=== PATIENT | female | born 1955 | race Caucasian/White ===

== ENCOUNTER 2022-02-05 19:41 | Inpatient (IN) | payer MEDICARE, MEDICAID, OTHER, SELFPAY ==
--- NOTE | ~2022-02-05 | MR_ITS ---
EXAMINATION: BRAIN MRI WITHOUT CONTRAST CLINICAL INFORMATION: Change in mental status. COMPARISON: CT scan of the head 02/26/2022. TECHNIQUE: Multiplanar MR imaging of the brain was performed without contrast. 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 No evidence of acute territorial infarct. No pathological magnetic susceptibility artifact. Intracranial vascular flow voids are maintained. There is no intracranial mass effect or midline shift. No abnormal extra axial question. Lateral and third ventricles are normal. No hydrocephalus. Midline structures including the cervicomedullary junction are normal. No acute bone marrow signal changes. There is no mastoid or middle ear effusion. Partial opacification of the ethmoid air cells and left maxillary sinus. MR/MR brain wo con w neuroquant IMPRESSION: There is a small chronic infarct involving the cerebellar vermis and numerous chronic small vessel ischemic changes within the periventricular white matter. No evidence of acute territorial infarct. No intracranial mass effect or hydrocephalus.
--- NOTE | ~2022-02-05 | CT_ITS ---
EXAMINATION: CT HEAD WITHOUT CONTRAST CLINICAL INFORMATION: Mental status change. COMPARISON: Head CT dated 02/06/2022. TECHNIQUE: Contiguous axial imaging was performed from the skullbase to vertex without intravenous administration of contrast. This CT examination was performed using dose optimization techniques as appropriate, variously including the following: *Automated exposure control *Adjustment of mA and/or kV according to patient size (this includes techniques or standardized protocols for targeted exams where dose is matched to indication/reason for exam; i.e. extremities or head) *Use of iterative reconstruction technique DLP: 580 mGy-cm. FINDINGS: There is no evidence of acute intracranial hemorrhage or territorial infarction. No abnormal mass effect or midline shift is seen. Coko to white matter differentiation is well preserved. No extra-axial fluid collections are identified. Diffuse parenchymal volume loss is again evident with stable ex vacuo dilatation of the ventricles. Mild to moderate chronic white matter microangiopathy again evident as well. The osseous structures and soft tissues are normal. The mastoid air cells are well aerated. There is moderate mucosal disease partially visualized in the left maxillary antrum with chronic sclerotic wall thickening. Skik-qm-ytttxcet mucosal thickening also visible in the anterior ethmoid air cells bilaterally. There is a moderate rightward nasal septal deviation. CT/CT head/brain wo IV con IMPRESSION: No acute intracranial hemorrhage or territorial infarction. Stable diffuse parenchymal volume loss and hbuz-iw-sibjkmrg chronic white matter microangiopathy. Incompletely visualized moderate left maxillary sinus disease with chronic sclerotic wall thickening.
--- NOTE | ~2022-02-05 | CT_ITS ---
EXAMINATION: CT HEAD WITHOUT CONTRAST CLINICAL INFORMATION: Change in mental status. Dementia. COMPARISON: Head CT from 10/28/2018. TECHNIQUE: Contiguous axial imaging was performed from the skullbase to vertex without intravenous administration of contrast. This CT examination was performed using dose optimization techniques as appropriate, variously including the following: *Automated exposure control *Adjustment of mA and/or kV according to patient size (this includes techniques or standardized protocols for targeted exams where dose is matched to indication/reason for exam; i.e. extremities or head) *Use of iterative reconstruction technique DLP: 667 mGy-cm. FINDINGS: There is no evidence of acute intracranial hemorrhage or territorial infarction. No abnormal mass effect or midline shift is seen. Cook to white matter differentiation is well preserved. No extra-axial fluid collections are identified. Moderate generalized parenchymal volume loss noted with ex vacuo prominence of the ventricles, progressed since the prior study. Mild to moderate chronic white matter microangiopathic changes also noted. The osseous structures and soft tissues are normal. The mastoid air cells are well aerated. There is chronic sclerotic wall thickening of the left maxillary antrum with a retention cyst visible dependently. Mild ethmoid sinus mucosal thickening noted. CT/CT head/brain wo IV con IMPRESSION: No acute intracranial hemorrhage or territorial infarction. Progressed moderate generalized parenchymal volume loss and mild to moderate chronic white matter microangiopathy. 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
[2022-02-05 19:45] VITALS: BP 153/83; PULSE 65; RESP 18; TEMP 36.8; O2SAT 95
[2022-02-05] MEDS: Divalproex Sodium 500 MG TABLET.DR PO (22:27)
[2022-02-05] MEDS: traZODone HCL 50 MG TABLET PO (22:28)
[2022-02-05] MEDS: cephALEXin 500 MG CAPSULE PO (22:28)
[2022-02-05] MEDS: carvediloL 12.5 MG TABLET PO (22:28)
[2022-02-05] MEDS: Melatonin 3 MG TABLET 6 MG PO (22:28)
[2022-02-05] MEDS: hydrOXYzine HCL 25 MG TABLET PO (22:29)
[2022-02-05] MEDS: QUEtiapine Fumarate 50 MG TABLET PO (22:32)
--- NOTE | 2022-02-06 01:09 | PC.ADMIT ---
Addendum entered by Rena Fan RN 02/06/22 02:09: more info Addendum entered by Rena Fan RN 02/06/22 02:07: More info Original Note: Pt is a 66 yr old female admitted to S1 at 19:45 on 02/05/22 via stretcher by EMT staff, after referral from CARE team/BHN at [facility]. Legal Status: CV. Admitted for unspecified Depressive disorder and unspecified Anxiety disorder. Covid negative. On oral antibiotics for UTI. HX: Alzheimer's, HTN, hypothyroidism, hyperlipidemia, bipolar disorder. A&Ox2 person and place only. Is forgetful. Orientation varies. Is able to verbalize needs. Wears eye glasses at baseline. Pt presented calm and cooperative upon arrival. I cant wait to use the bathroom and sleep . Ambulatory however, some assistance provided as needed. Continent of B/B. Some black and purple bruising noted on left forearm. It's from the blood draws for the lab . Meds ordered, reviewed and verified with Gail Toure NP. Compliant with medications. Pt reports feeling safe on S1.
--- NOTE | 2022-02-06 02:09 | PC.ADMIT ---
Pt is a 66 yr old female admitted to S1 at 19:45 on 02/05/22 via stretcher by EMT staff, after referral from CARE team/BHN at ED [facility]. Legal Status: CV. Admitted for unspecified Depressive disorder and unspecified Anxiety disorder. Covid negative. On oral antibiotics for UTI. HX: DM, Alzheimer's, HTN, hypothyroidism, hyperlipidemia, bipolar disorder. A&Ox2 person and place only. Is forgetful. Orientation varies. Is able to verbalize needs. Wears eye glasses at baseline. Pt presented calm and cooperative upon arrival. I cant wait to use the bathroom and sleep . Ambulatory however, some assistance provided as needed. Continent of B/B. Some black and purple bruising noted on left forearm. It's from the blood draws for the lab . Meds ordered, reviewed and verified with Gail Toure PATIENT SERVICE REPRESENTATIVE. Compliant with medications. Pt reports feeling safe on S1.
[2022-02-06 06:00] VITALS: BP 154/71; PULSE 56; RESP 14; TEMP 36.3; O2SAT 95
[2022-02-06] MEDS: Levothyroxine Sodium 50 MCG TABLET PO (06:13)
[2022-02-06 08:11] LABS: Glucose, Whole Blood 86 mg/dL (60-115)
[2022-02-06 09:16] LABS: Cholesterol 159 mg/dL; HDL Cholesterol 37 mg/dL; LDL Cholesterol Calculated 95 mg/dl; Magnesium 1.9 mg/dL (1.6-2.6); Triglycerides 139 mg/dL
[2022-02-06 09:35] LABS: Estimated Average Glucose 114 mg/dL; Hemoglobin A1c % 5.6 %
[2022-02-06 09:39] LABS: Free T4 (Free Thyroxine) 1.28 ng/dL (0.71-1.85); Thyroid Stimulating Hormone 3.24 uIU/mL (0.32-4.0)
[2022-02-06 09:50] LABS: Folate 9.8 ng/mL (> or = 4.0); Vitamin B12 1130 pg/mL (200-900)
[2022-02-06] MEDS: carvediloL 12.5 MG TABLET PO ×2 (09:57→20:48)
[2022-02-06] MEDS: Atorvastatin Calcium 80 MG TABLET PO (09:57)
[2022-02-06] MEDS: Divalproex Sodium 250 MG TABLET.DR PO (09:57)
[2022-02-06] MEDS: amLODIPine Besylate 5 MG TABLET PO (09:57)
[2022-02-06] MEDS: cephALEXin 500 MG CAPSULE PO (11:02)
[2022-02-06] MEDS: Sertraline HCL 50 MG TABLET PO (11:02)
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
--- NOTE | 2022-02-06 15:41 | HO.PM.IMCN ---
History of Present Illness Data of Consult Service Date: 02/06/22 Requesting physician: Gail Toure Primary Care Provider: Unknown Physician HPI Reason for consult: hospital H&P 66-year-old female with history of insulin-dependent type 2 diabetes last A1c 5.6%, hypertension, MATTIE on CPAP, CKD stage 3, hypothyroidism, Alzheimer's, and bipolar disorder with psychosis admitted to Geriatric Psychiatry with consult placed for medical H&P. There is transferred here from [facility]. In the ED, she was noted to have 3+ leukocytes and slight bacteria in her urine. Nitrates were negative. Urine culture is not available. She has been on Keflex since 02/02 and denies any urinary symptoms including dysuria, hematuria, increased urinary frequency, urgency, fevers, chills, or abdominal pain. She has no complaints at this time. Review of Systems Review of Systems: General: No fevers, malaise, unintentional weight loss HEENT: No blurred vision or diplopia Cardiovascular: No chest pain, palpitations, or leg edema Respiratory: No shortness of breath, wheezing, cough GI: No abdominal pain, nausea, vomiting, diarrhea, constipation, melena, hematochezia : No dysuria, hematuria, increased urinary frequency, urgency MSK: No myalgia Neuro: No headaches, weakness, paresthesias Skin: No rashes or lesions [facility] Medical History (Updated 02/06/22 @ 15:48 by KHOA Hui) Bipolar disorder CKD stage 3 due to type 2 diabetes mellitus Dementia HLD (hyperlipidemia) Hypothyroidism MATTIE (obstructive sleep apnea) Type 2 diabetes Family History Father Alcohol dependence Mother Smoker Daughter No problems noted. Son No problems noted. Social History Household Members: Family Housing: House Do you presently have visiting nurse or other home services: No Unable to assess alcohol history related to: Unknown Patient Tobacco Use Status: Former Tobacco user Quit Date: Years ago Tobacco use type: Cigarette Smoked in Last 30 Days: No e-Cigarette/Vaping Use: Never Used Patient Interested in Nicotine Replacement: No Use of substances other than those prescribed or required for medical reasons: Unknown Currently Displaying Signs/Symptoms of Drug Intoxication Withdrawal: No Advance Directives: No Advance Directives Information Provided: No Do you have thoughts of harming others: None Do you have a plan to hurt others: No Plan Recently lost weight without trying: Unsure Patient : No service: No Sexual orientation: Straight/Heterosexual Meds Allergies Allergy/AdvReac Type Severity Reaction Status Date / Time No Known Allergies Allergy Verified 02/05/22 21:09 Active Medications: Current Medications Acetaminophen (Acetaminophen 325 Mg Tablet) 650 mg PO Q6H PRN PRN Reason: Headache/Pain Mild Scale (1-3) Al Hydroxide/Mg Hydroxide (Magnesium Hydrox/Alum Hydrox 30 Ml Oral.Susp) 30 ml PO Q6H PRN PRN Reason: Heartburn/Nausea Amlodipine Besylate (Amlodipine Besylate 5 Mg Tablet) 5 mg PO DAILY [facility]; Protocol Last Admin: 02/06/22 09:57 Dose: 5 mg Artificial Tears (Artificial Tears 15 Ml Drops) 1 drop EYE-BOTH Q4H PRN PRN Reason: dry eyes Atorvastatin Calcium (Atorvastatin Calcium 80 Mg Tablet) 80 mg PO DAILY [facility] Last Admin: 02/06/22 09:57 Dose: 80 mg Carvedilol (Carvedilol 12.5 Mg Tablet) 12.5 mg PO BID [facility]; Protocol Last Admin: 02/06/22 09:57 Dose: 12.5 mg Cephalexin HCl (Cephalexin 500 Mg Capsule) 500 mg PO Q12H KELY Stop: 02/10/22 22:59 Last Admin: 02/06/22 11:02 Dose: 500 mg Divalproex Sodium (Divalproex Sodium 250 Mg Tablet.) 250 mg PO DAILY [facility] Last Admin: 02/06/22 09:57 Dose: 250 mg Divalproex Sodium (Divalproex Sodium 500 Mg Tablet.) 500 mg PO BEDTIME KELY Last Admin: 02/05/22 22:27 Dose: 500 mg Guaifenesin/Dextromethorphan (Guaifenesin Dm 100/10/5 Ml 5 Ml Syrup) 10 ml PO Q4H PRN PRN Reason: cough Hydroxyzine HCl (Hydroxyzine Hcl 25 Mg Tablet) 25 mg PO Q6H PRN PRN Reason: Anxiety Last Admin: 02/05/22 22:29 Dose: 25 mg Insulin Human Lispro (Insulin Lispro 100 Unit/Ml 3 Ml Vial) 0 unit SUBCUT QIDACHS KELY; Protocol Last Admin: 02/06/22 13:54 Dose: Not Given Levothyroxine Sodium (Levothyroxine Sodium 50 Mcg Tablet) 50 mcg PO DAILY@0600 [facility] Last Admin: 02/06/22 06:13 Dose: 50 mcg Magnesium Hydroxide (Milk Of Magnesia 30 Ml Oral.Susp) 30 ml PO DAILY PRN PRN Reason: Constipation Melatonin (Melatonin 3 Mg Tablet) 6 mg PO BEDTIME [facility] Last Admin: 02/05/22 22:28 Dose: 6 mg Melatonin (Melatonin 3 Mg Tablet) 3 mg PO BEDTIME PRN PRN Reason: insomnia Polyethylene Glycol (Polyethylene Glycol 3350 17 Gm Powd.Pack) 17 gm PO DAILY PRN PRN Reason: constipation Quetiapine Fumarate (Quetiapine Fumarate 50 Mg Tablet) 50 mg PO BEDTIME [facility] Last Admin: 02/05/22 22:32 Dose: 50 mg Senna/Docusate Sodium (Sennosides/Docusate Sodium Tablet) 1 tab PO DAILY PRN PRN Reason: constipation Sertraline HCl (Sertraline Hcl 50 Mg Tablet) 50 mg PO DAILY [facility] Last Admin: 02/06/22 11:02 Dose: 50 mg Trazodone HCl (Trazodone Hcl 50 Mg Tablet) 50 mg PO BEDTIME PRN PRN Reason: Insomnia Last Admin: 02/05/22 22:28 Dose: 50 mg Physical Exam Vital Signs and Narrative: Vital Signs: Last Vital Signs Temp 97.4 F 02/06/22 06:00 Pulse 56 02/06/22 06:00 Resp 14 02/06/22 06:00 BP 154/71 H 02/06/22 06:00 Pulse Ox 95 02/06/22 06:00 O2 Del Method 02/06/22 06:00 Constitutional - Awake and Alert, No apparent distress Eyes - PERRLA, EOMI Cardiovascular - S1S2, RRR, No edema Respiratory - Normal lung expansion, Normal respiratory effort, No respiratory distress, CTA bilaterally Gastrointestinal - NT / ND; +BS; No rebound or guarding Extremities - no calf tenderness bilaterally, no swelling Musculoskeletal - Normal inspection, normal ROM Skin - Warm/Dry Neurological - Alert & oriented x3, CN II-XII in tact, 5/5 strength BUE and BLE Psychological - Appropriate affect Results Labs Labs: Laboratory Results - last 24 hr 02/06/22 02/06/22 02/06/22 08:02 08:33 08:33 POC Glucose 86 Estimat Average Glucose 114 Hemoglobin A1c % 5.6 Magnesium 1.9 Triglycerides 139 Cholesterol 159 LDL Cholesterol, Calc 95 HDL Cholesterol 37 Vitamin B12 Folate TSH 3.24 Free T4 1.28 02/06/22 08:33 POC Glucose Estimat Average Glucose Hemoglobin A1c % Magnesium Triglycerides Cholesterol LDL Cholesterol, Calc HDL Cholesterol Vitamin B12 1130 H Folate 9.8 TSH Free T4 Assessment and Plan (1) Dementia: Status: Acute (2) Bipolar disorder: Status: Acute (3) Delirium: Status: Acute Plan 66-year-old female with history of insulin-dependent type 2 diabetes last A1c 5.6%, hypertension, MATTIE on CPAP, CKD stage 3, hypothyroidism, Alzheimer's, and bipolar disorder with psychosis admitted to geriatric psychiatry with consult placed for medical H&P. #Bipolar disorder -Plan per psychiatry #Dementia/delerium -Plan per psychiatry #UTI -No urine culture available. UA at [facility] with 3+ leuks, slight bacteria, neg nitrites. -Complete 7 day total course keflex. # insulin-dependent type 2 diabetes -controlled with most recent A1c of 5.6% -point of care glucose -diabetic diet -Humalog on sliding scale # hypothyroidism-stable -TSH 3.24, free T4 1.28 -continue levothyroxine # hypertension-controlled -continue carvedilol # hyperlipidemia -total cholesterol 159, LDL 95, HDL 37 triglycerides 139 -continue statin #MATTIE on cpap -Would recommend CPAP use if possible on unit. Pt unsure of settings. RT can assist with settings -Will defer to psychiatry Thank you for allowing me to participate in this consult. Signing off at this time. Please do not hesitate to call for further questions.
[2022-02-06 16:40] LABS: Glucose, Whole Blood 97 mg/dL (60-115)
[2022-02-06 20:00] VITALS: BP 141/83; PULSE 62; RESP 16; TEMP 36.5; O2SAT 95
[2022-02-06 20:30] LABS: Glucose, Whole Blood 133 mg/dL (60-115)
[2022-02-06] MEDS: QUEtiapine Fumarate 50 MG TABLET PO (20:48)
[2022-02-06] MEDS: Divalproex Sodium 500 MG TABLET.DR PO (20:48)
[2022-02-06] MEDS: Melatonin 3 MG TABLET 6 MG PO (20:48)
[2022-02-07] MEDS: cephALEXin 500 MG CAPSULE PO ×2 (03:17→11:30)
[2022-02-07] MEDS: Levothyroxine Sodium 50 MCG TABLET PO (05:51)
[2022-02-07 06:00] VITALS: BP 138/65; PULSE 56; RESP 16; TEMP 36.4; O2SAT 97
[2022-02-07 08:18] LABS: Glucose, Whole Blood 85 mg/dL (60-115)
[2022-02-07] MEDS: amLODIPine Besylate 5 MG TABLET PO (11:03)
[2022-02-07] MEDS: Divalproex Sodium 250 MG TABLET.DR PO (11:03)
[2022-02-07] MEDS: carvediloL 12.5 MG TABLET PO ×2 (11:03→20:23)
[2022-02-07] MEDS: Atorvastatin Calcium 80 MG TABLET PO (11:03)
[2022-02-07] MEDS: Sertraline HCL 50 MG TABLET PO (11:03)
[2022-02-07 11:41] LABS: Glucose, Whole Blood 93 mg/dL (60-115)
--- NOTE | 2022-02-07 14:33 | HO.PSYCHPN ---
Subjective Subjective Date of Service: 02/07/22 Reason For Visit: depression, anxiety, alzheimers Subjective Notes: Conditional Voluntary Interim History: the nursing staff reported the patient has been compliant with treatment, she slept well, his fasting blood sugars were 82 today. She is treated for UTI with antibiotics. So far no side effects. Apparently the patient lived in a crowded apartment with several family members and she had been paranoid and psychotic again stem. On interview the patient is pleasantly confused easily redirectable, no new side effects no new complaints. Visible in the common areas. We will try to gather collateral information sings the adoption social worker was unable to contact the family yesterday. Mental Status Exam Mental Status Exam Patient Appearance: Well Grooomed Patient Orientation: Person and Situation Level of Consciousness: Awake Patient Behavior: Cooperative Mood Description: Constricted Affect Description: Labile Patient Cognition Impaired: Yes Ability to Follow Directions: Good Speech Pattern: Clear Hallucinations: None Delusions: Paranoid Ideation Thought Process: Distracted Thought Content: positive for Rousseau Judgement: Poor Diagnostics Vital Signs (24Hr): Vital Signs - 24 hr 02/06/22 20:00 02/07/22 06:00 Temperature 97.7 F 97.6 F Pulse Rate 62 56 Respiratory Rate 16 16 Blood Pressure 141/83 H 138/65 Pulse Oximetry 95 97 Oxygen Delivery Method Room Air Room Air Labs Labs: Laboratory Results - last 48 hr 02/06/22 02/06/22 02/06/22 08:02 08:33 08:33 POC Glucose 86 Estimat Average Glucose 114 Hemoglobin A1c % 5.6 Magnesium 1.9 Triglycerides 139 Cholesterol 159 LDL Cholesterol, Calc 95 HDL Cholesterol 37 Vitamin B12 Folate TSH 3.24 Free T4 1.28 02/06/22 02/06/22 02/06/22 08:33 16:35 20:25 POC Glucose 97 133 H Estimat Average Glucose Hemoglobin A1c % Magnesium Triglycerides Cholesterol LDL Cholesterol, Calc HDL Cholesterol Vitamin B12 1130 H Folate 9.8 TSH Free T4 02/07/22 02/07/22 08:15 11:37 POC Glucose 85 93 Estimat Average Glucose Hemoglobin A1c % Magnesium Triglycerides Cholesterol LDL Cholesterol, Calc HDL Cholesterol Vitamin B12 Folate TSH Free T4 Imaging Radiology Impressions: ITS Impressions Head CT 02/06/22 15:04 IMPRESSION: No acute intracranial hemorrhage or territorial infarction. Progressed moderate generalized parenchymal volume loss and mild to moderate chronic white matter microangiopathy. 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 Medications Medications Current Medications Acetaminophen (Acetaminophen 325 Mg Tablet) 650 mg PO Q6H PRN PRN Reason: Headache/Pain Mild Scale (1-3) Al Hydroxide/Mg Hydroxide (Magnesium Hydrox/Alum Hydrox 30 Ml Oral.Susp) 30 ml PO Q6H PRN PRN Reason: Heartburn/Nausea Amlodipine Besylate (Amlodipine Besylate 5 Mg Tablet) 5 mg PO DAILY [facility]; Protocol Last Admin: 02/07/22 11:03 Dose: 5 mg Artificial Tears (Artificial Tears 15 Ml Drops) 1 drop EYE-BOTH Q4H PRN PRN Reason: dry eyes Atorvastatin Calcium (Atorvastatin Calcium 80 Mg Tablet) 80 mg PO DAILY [facility] Last Admin: 02/07/22 11:03 Dose: 80 mg Carvedilol (Carvedilol 12.5 Mg Tablet) 12.5 mg PO BID [facility]; Protocol Last Admin: 02/07/22 11:03 Dose: 12.5 mg Cephalexin HCl (Cephalexin 500 Mg Capsule) 500 mg PO Q12H [facility] Stop: 02/10/22 22:59 Last Admin: 02/07/22 11:30 Dose: 500 mg Divalproex Sodium (Divalproex Sodium 250 Mg Tablet.) 250 mg PO DAILY [facility] Last Admin: 02/07/22 11:03 Dose: 250 mg Divalproex Sodium (Divalproex Sodium 500 Mg Tablet.) 500 mg PO BEDTIME [facility] Last Admin: 02/06/22 20:48 Dose: 500 mg Guaifenesin/Dextromethorphan (Guaifenesin Dm 100/10/5 Ml 5 Ml Syrup) 10 ml PO Q4H PRN PRN Reason: cough Hydroxyzine HCl (Hydroxyzine Hcl 25 Mg Tablet) 25 mg PO Q6H PRN PRN Reason: Anxiety Last Admin: 02/05/22 22:29 Dose: 25 mg Insulin Human Lispro (Insulin Lispro 100 Unit/Ml 3 Ml Vial) 0 unit SUBCUT QIDACHS [facility]; Protocol Last Admin: 02/07/22 11:39 Dose: Not Given Levothyroxine Sodium (Levothyroxine Sodium 50 Mcg Tablet) 50 mcg PO DAILY@0600 [facility] Last Admin: 02/07/22 05:51 Dose: 50 mcg Magnesium Hydroxide (Milk Of Magnesia 30 Ml Oral.Susp) 30 ml PO DAILY PRN PRN Reason: Constipation Melatonin (Melatonin 3 Mg Tablet) 6 mg PO BEDTIME [facility] Last Admin: 02/06/22 20:48 Dose: 6 mg Melatonin (Melatonin 3 Mg Tablet) 3 mg PO BEDTIME PRN PRN Reason: insomnia Polyethylene Glycol (Polyethylene Glycol 3350 17 Gm Powd.Pack) 17 gm PO DAILY PRN PRN Reason: constipation Quetiapine Fumarate (Quetiapine Fumarate 50 Mg Tablet) 50 mg PO BEDTIME [facility] Last Admin: 02/06/22 20:48 Dose: 50 mg Senna/Docusate Sodium (Sennosides/Docusate Sodium Tablet) 1 tab PO DAILY PRN PRN Reason: constipation Sertraline HCl (Sertraline Hcl 50 Mg Tablet) 50 mg PO DAILY [facility] Last Admin: 02/07/22 11:03 Dose: 50 mg Trazodone HCl (Trazodone Hcl 50 Mg Tablet) 50 mg PO BEDTIME PRN PRN Reason: Insomnia Last Admin: 02/05/22 22:28 Dose: 50 mg Allergies Allergies Allergy/AdvReac Type Severity Reaction Status Date / Time No Known Allergies Allergy Verified 02/05/22 21:09 Assessment & Plan Assessment & Plan (1) Dementia: Status: Acute Code(s): F03.90 - Unspecified dementia, unspecified severity, without behavioral disturbance, psychotic disturbance, mood disturbance, and anxiety (2) Bipolar disorder: Status: Acute Code(s): F31.9 - Bipolar disorder, unspecified (3) Delirium: Status: Acute Code(s): R41.0 - Disorientation, unspecified Plan 66-year-old female with history of insulin-dependent type 2 diabetes last A1c 5.6%, hypertension, MATTIE on CPAP, CKD stage 3, hypothyroidism, Alzheimer's, and bipolar disorder with psychosis admitted to geriatric psychiatry with consult placed for medical H&P. #Bipolar disorder -Plan per psychiatry #Dementia/delerium -Plan per psychiatry #UTI -No urine culture available. UA at [facility] with 3+ leuks, slight bacteria, neg nitrites. -Complete 7 day total course keflex. # insulin-dependent type 2 diabetes -controlled with most recent A1c of 5.6% -point of care glucose -diabetic diet -Humalog on sliding scale # hypothyroidism-stable -TSH 3.24, free T4 1.28 -continue levothyroxine # hypertension-controlled -continue carvedilol # hyperlipidemia -total cholesterol 159, LDL 95, HDL 37 triglycerides 139 -continue statin #MATTIE on cpap -Would recommend CPAP use if possible on unit. Pt unsure of settings. RT can assist with settings -Will defer to psychiatry Thank you for allowing me to participate in this consult. Signing off at this time. Please do not hesitate to call for further questions. I spent __20____ minutes with the patient and/or on the patient floor today, greater than?50% of which was spent counseling/coordinating care. Reason for contiued inpatient stay Substantial Risk for: inability to function, rapid decompensation and med/psych decompensation
[2022-02-07 16:23] LABS: Appearance Urine Clear; Color Urine Yellow; Glucose Urine UA Negative (Negative); Leukocyte Esterase Urine Negative (Negative); Nitrite Urine Negative (Negative); Specific Gravity - Urine 1.025 (1.005-1.025); Urine Blood Negative (Negative); Urine Ketones Trace mg/dL (Negative); Urine Protein Negative (Neg-Trace)
[2022-02-07 16:36] LABS: Glucose, Whole Blood 110 mg/dL (60-115)
[2022-02-07 18:00] VITALS: BP 135/62; PULSE 62; RESP 16; TEMP 36.5; O2SAT 93
[2022-02-07 20:20] LABS: Glucose, Whole Blood 198 mg/dL (60-115)
[2022-02-07] MEDS: Insulin Lispro 100 UNIT/ML 3 ML VIAL SUBCUT (20:21)
[2022-02-07] MEDS: QUEtiapine Fumarate 50 MG TABLET PO (20:22)
[2022-02-07] MEDS: Divalproex Sodium 500 MG TABLET.DR PO (20:23)
[2022-02-07] MEDS: Melatonin 3 MG TABLET 6 MG PO (20:23)
[2022-02-08] MEDS: cephALEXin 500 MG CAPSULE PO ×2 (00:12→11:29)
[2022-02-08 06:00] VITALS: BP 142/70; PULSE 60; RESP 17; TEMP 35.8; O2SAT 95
[2022-02-08] MEDS: Levothyroxine Sodium 50 MCG TABLET PO (06:07)
[2022-02-08 07:00] VITALS: BMI 28.4
[2022-02-08 07:58] LABS: Glucose, Whole Blood 79 mg/dL (60-115)
[2022-02-08 08:14] LABS: MANUAL DIFF FLAG NO
[2022-02-08] MEDS: amLODIPine Besylate 5 MG TABLET PO (08:44)
[2022-02-08] MEDS: carvediloL 12.5 MG TABLET PO ×2 (08:45→20:29)
[2022-02-08] MEDS: Atorvastatin Calcium 80 MG TABLET PO (08:45)
[2022-02-08] MEDS: Divalproex Sodium 250 MG TABLET.DR PO (08:45)
[2022-02-08] MEDS: Sertraline HCL 50 MG TABLET PO (08:45)
[2022-02-08 09:00] LABS: Basophils Percent Auto 0.8 % (0-2); Eosinophils Absolute Auto 0.3 X10*3/uL (0.0-0.4); Eosinophils Percent Auto 5.2 % (0-4); Hematocrit 35.5 % (37.0-47.0); Hemoglobin 11.7 g/dl (12.0-16.0); Imm Gran Abs Auto 0.12 X10*3/uL (0.00-0.03); Imm Gran Pct Auto 2.5 % (0.0-0.4); Lymphocytes Absolute Auto 1.7 X10*3/uL (1.2-4.9); Lymphocytes Percent Auto 34.8 % (20-40); Mean Corpuscular Hemoglobin 31.3 pg (27.0-33.0); Mean Corpuscular Volume 94.9 fL (80.0-98.0); Mean Platelet Volume 9.7 fL (9.4-12.3); Monocytes Absolute Auto 0.7 X10*3/uL (0.1-1.2); Monocytes Percent Auto 13.5 % (2-11); Neutrophils Absolute Auto 2.1 x10*3/uL (2.0-8.3); Neutrophils Percent Auto 43.2 % (45-73); Platelet Count 133 X10*3/uL (160-400); Red Blood Count 3.74 X10*6/uL (4.20-5.50); Red Cell Distribution Width 13.7 % (11.0-16.0); White Blood Count 4.8 X10*3/uL (4.8-10.8)
[2022-02-08 09:14] LABS: Anion Gap 13 (12-20); Blood Urea Nitrogen 24 mg/dL (9-16); Calcium 8.7 mg/dL (8.4-10.2); Carbon Dioxide 30 mmol/L (22-29); Chloride 104 mmol/L (96-108); Estimated Glomerular Filt Rate 46; Glucose Random 88 mg/dL (60-115); Potassium 4.1 mmol/L (3.3-5.1); Sodium 143 mmol/L (135-145)
--- NOTE | 2022-02-08 11:28 | P.PNPSI_ITS ---
Subjective Subjective Date of Service: 02/08/22 Reason For Visit: depression, anxiety, alzheimers Subjective Notes: Conditional Voluntary Interim History: The nursing staff reported the patient slept all night long. Her UA came back clear and we will continue with her and Keflex and she finish on February 10. The social media sr strategy manager spoke with her daughter and they want placement for her since 13 people living in that apartment and there is over the stimulation. Apparently she has more than 3 admissions in the last year due to Alzheimer's dementia. The occupational therapist reported that she scored 3.4 on the Dong test at her [employer] is 9/30. We will try to talk with the [id number] tomorrow at 11:30. On interview the patient denies new symptoms she is pleasantly confused but easily redirectable. Mental Status Exam Mental Status Exam Patient Appearance: Well Grooomed Patient Orientation: Person Level of Consciousness: Awake Patient Behavior: Guarded and Passive Mood Description: Calm Affect Description: Labile Patient Cognition Impaired: Yes Ability to Follow Directions: Fair Speech Pattern: Clear Memory Description: Intact Hallucinations: None Delusions: Paranoid Ideation Thought Process: Illogical Judgement: Fair Diagnostics Vital Signs (24Hr): Vital Signs - 24 hr 02/07/22 18:00 02/08/22 06:00 Temperature 97.7 F 96.5 F L Pulse Rate 62 60 Respiratory Rate 16 17 Blood Pressure 135/62 142/70 H Pulse Oximetry 93 95 Oxygen Delivery Method Room Air Room Air Labs Results: 02/08/22 08:02 02/08/22 08:02 Labs: Laboratory Results - last 48 hr 02/06/22 02/06/22 02/07/22 16:35 20:25 08:15 WBC RBC Hgb Hct MCV MCH MCHC RDW Plt Count MPV Immature Gran % (Auto) Neut % (Auto) Lymph % (Auto) [place] % (Auto) Eos % (Auto) Baso % (Auto) Lymph # (Auto) [place] # (Auto) Eos # (Auto) Baso # (Auto) Abs Immat Gran (auto) Absolute Neuts (auto) Absolute Nucleated RBC Nucleated RBC % (auto) Sodium Potassium Chloride Carbon Dioxide Anion Gap BUN Creatinine Estim Creat Clear Calc Estimated GFR POC Glucose 97 133 H 85 Random Glucose Calcium Urine Color Urine Appearance Urine pH Ur Specific [place] Urine Protein Urine Glucose (UA) Urine Ketones Urine Blood Urine Nitrite Ur Leukocyte Esterase 02/07/22 02/07/22 02/07/22 11:37 16:10 16:31 WBC RBC Hgb Hct MCV MCH MCHC RDW Plt Count MPV Immature Gran % (Auto) Neut % (Auto) Lymph % (Auto) [place] % (Auto) Eos % (Auto) Baso % (Auto) Lymph # (Auto) [place] # (Auto) Eos # (Auto) Baso # (Auto) Abs Immat Gran (auto) Absolute Neuts (auto) Absolute Nucleated RBC Nucleated RBC % (auto) Sodium Potassium Chloride Carbon Dioxide Anion Gap BUN Creatinine Estim Creat Clear Calc Estimated GFR POC Glucose 93 110 Random Glucose Calcium Urine Color Yellow Urine Appearance Clear Urine pH 6.0 Ur Specific [place] 1.025 Urine Protein Negative Urine Glucose (UA) Negative Urine Ketones Trace Urine Blood Negative Urine Nitrite Negative Ur Leukocyte Esterase Negative 02/07/22 02/08/22 02/08/22 19:59 07:53 08:02 WBC 4.8 RBC 3.74 L Hgb 11.7 L Hct 35.5 L MCV 94.9 MCH 31.3 MCHC 33.0 RDW 13.7 Plt Count 133 L MPV 9.7 Immature Gran % (Auto) 2.5 H Neut % (Auto) 43.2 L Lymph % (Auto) 34.8 [place] % (Auto) 13.5 H Eos % (Auto) 5.2 H Baso % (Auto) 0.8 Lymph # (Auto) 1.7 [place] # (Auto) 0.7 Eos # (Auto) 0.3 Baso # (Auto) 0.0 Abs Immat Gran (auto) 0.12 H Absolute Neuts (auto) 2.1 Absolute Nucleated RBC 0.000 Nucleated RBC % (auto) 0.0 Sodium Potassium Chloride Carbon Dioxide Anion Gap BUN Creatinine Estim Creat Clear Calc Estimated GFR POC Glucose 198 H 79 Random Glucose Calcium Urine Color Urine Appearance Urine pH Ur Specific [place] Urine Protein Urine Glucose (UA) Urine Ketones Urine Blood Urine Nitrite Ur Leukocyte Esterase 02/08/22 08:02 WBC RBC Hgb Hct MCV MCH MCHC RDW Plt Count MPV Immature Gran % (Auto) Neut % (Auto) Lymph % (Auto) [place] % (Auto) Eos % (Auto) Baso % (Auto) Lymph # (Auto) [place] # (Auto) Eos # (Auto) Baso # (Auto) Abs Immat Gran (auto) Absolute Neuts (auto) Absolute Nucleated RBC Nucleated RBC % (auto) Sodium 143 Potassium 4.1 Chloride 104 Carbon Dioxide 30 H Anion Gap 13 BUN 24 H Creatinine 1.18 Estim Creat Clear Calc TNP Estimated GFR 46 POC Glucose Random Glucose 88 Calcium 8.7 Urine Color Urine Appearance Urine pH Ur Specific [place] Urine Protein Urine Glucose (UA) Urine Ketones Urine Blood Urine Nitrite Ur Leukocyte Esterase Imaging Radiology Impressions: ITS Impressions Head CT 02/06/22 15:04 IMPRESSION: No acute intracranial hemorrhage or territorial infarction. Progressed moderate generalized parenchymal volume loss and mild to moderate chronic white matter microangiopathy. 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 Medications Medications Current Medications Acetaminophen (Acetaminophen 325 Mg Tablet) 650 mg PO Q6H PRN PRN Reason: Headache/Pain Mild Scale (1-3) Al Hydroxide/Mg Hydroxide (Magnesium Hydrox/Alum Hydrox 30 Ml Oral.Susp) 30 ml PO Q6H PRN PRN Reason: Heartburn/Nausea Amlodipine Besylate (Amlodipine Besylate 5 Mg Tablet) 5 mg PO DAILY [facility]; Protocol Last Admin: 02/08/22 08:44 Dose: 5 mg Artificial Tears (Artificial Tears 15 Ml Drops) 1 drop EYE-BOTH Q4H PRN PRN Reason: dry eyes Atorvastatin Calcium (Atorvastatin Calcium 80 Mg Tablet) 80 mg PO DAILY [facility] Last Admin: 02/08/22 08:45 Dose: 80 mg Carvedilol (Carvedilol 12.5 Mg Tablet) 12.5 mg PO BID [facility]; Protocol Last Admin: 02/08/22 08:45 Dose: 12.5 mg Cephalexin HCl (Cephalexin 500 Mg Capsule) 500 mg PO Q12H [facility] Stop: 02/10/22 22:59 Last Admin: 02/08/22 00:12 Dose: 500 mg Divalproex Sodium (Divalproex Sodium 250 Mg Tablet.) 250 mg PO DAILY [facility] Last Admin: 02/08/22 08:45 Dose: 250 mg Divalproex Sodium (Divalproex Sodium 500 Mg Tablet.) 500 mg PO BEDTIME [facility] Last Admin: 02/07/22 20:23 Dose: 500 mg Donepezil HCl (Donepezil Hcl 5 Mg Tablet) 5 mg PO BEDTIME [facility] Guaifenesin/Dextromethorphan (Guaifenesin Dm 100/10/5 Ml 5 Ml Syrup) 10 ml PO Q4H PRN PRN Reason: cough Hydroxyzine HCl (Hydroxyzine Hcl 25 Mg Tablet) 25 mg PO Q6H PRN PRN Reason: Anxiety Last Admin: 02/05/22 22:29 Dose: 25 mg Insulin Human Lispro (Insulin Lispro 100 Unit/Ml 3 Ml Vial) 0 unit SUBCUT QIDACHS [facility]; Protocol Last Admin: 02/08/22 11:21 Dose: Not Given Levothyroxine Sodium (Levothyroxine Sodium 50 Mcg Tablet) 50 mcg PO DAILY@0600 [facility] Last Admin: 02/08/22 06:07 Dose: 50 mcg Magnesium Hydroxide (Milk Of Magnesia 30 Ml Oral.Susp) 30 ml PO DAILY PRN PRN Reason: Constipation Melatonin (Melatonin 3 Mg Tablet) 6 mg PO BEDTIME [facility] Last Admin: 02/07/22 20:23 Dose: 6 mg Melatonin (Melatonin 3 Mg Tablet) 3 mg PO BEDTIME PRN PRN Reason: insomnia Polyethylene Glycol (Polyethylene Glycol 3350 17 Gm Powd.Pack) 17 gm PO DAILY PRN PRN Reason: constipation Quetiapine Fumarate (Quetiapine Fumarate 50 Mg Tablet) 50 mg PO BEDTIME [facility] Last Admin: 02/07/22 20:22 Dose: 50 mg Senna/Docusate Sodium (Sennosides/Docusate Sodium Tablet) 1 tab PO DAILY PRN PRN Reason: constipation Sertraline HCl (Sertraline Hcl 50 Mg Tablet) 50 mg PO DAILY [facility] Last Admin: 02/08/22 08:45 Dose: 50 mg Trazodone HCl (Trazodone Hcl 50 Mg Tablet) 50 mg PO BEDTIME PRN PRN Reason: Insomnia Last Admin: 02/05/22 22:28 Dose: 50 mg Allergies Allergies Allergy/AdvReac Type Severity Reaction Status Date / Time No Known Allergies Allergy Verified 02/05/22 21:09 Assessment & Plan Assessment & Plan (1) Dementia: Status: Acute Code(s): F03.90 - Unspecified dementia, unspecified severity, without behavioral distu rbance, psychotic disturbance, mood disturbance, and anxiety (2) Bipolar disorder: Status: Acute Code(s): F31.9 - Bipolar disorder, unspecified (3) Delirium: Status: Acute Code(s): R41.0 - Disorientation, unspecified Plan 66-year-old female with history of insulin-dependent type 2 diabetes last A1c 5.6%, hypertension, MATTIE on CPAP, CKD stage 3, hypothyroidism, Alzheimer's, and bipolar disorder with psychosis admitted to geriatric psychiatry with consult placed for medical H&P. #Bipolar disorder -Plan per psychiatry #Dementia/delerium -Plan per psychiatry #UTI -No urine culture available. UA at [facility] with 3+ leuks, slight bacteria, neg nitrites. -Complete 7 day total course keflex. # insulin-dependent type 2 diabetes -controlled with most recent A1c of 5.6% -point of care glucose -diabetic diet -Humalog on sliding scale # hypothyroidism-stable -TSH 3.24, free T4 1.28 -continue levothyroxine # hypertension-controlled -continue carvedilol # hyperlipidemia -total cholesterol 159, LDL 95, HDL 37 triglycerides 139 -continue statin #MATTIE on cpap -Would recommend CPAP use if possible on unit. Pt unsure of settings. RT can assist with settings -Will defer to psychiatry Thank you for allowing me to participate in this consult. Signing off at this time. Please do not hesitate to call for further questions. I spent __20____ minutes with the patient and/or on the patient floor today, greater than?50% of which was spent counseling/coordinating care. Reason for contiued inpatient stay Substantial Risk for: inability to function, rapid decompensation and med/psych decompensation
[2022-02-08 11:38] LABS: Glucose, Whole Blood 91 mg/dL (60-115)
[2022-02-08 18:00] VITALS: BP 120/60; PULSE 76; RESP 18; TEMP 37; O2SAT 97
[2022-02-08] MEDS: Donepezil HCl 5 MG TABLET PO (20:28)
[2022-02-08] MEDS: Divalproex Sodium 500 MG TABLET.DR PO (20:28)
[2022-02-08] MEDS: QUEtiapine Fumarate 50 MG TABLET PO (20:28)
[2022-02-08] MEDS: Melatonin 3 MG TABLET 6 MG PO (20:29)
[2022-02-08 21:14] LABS: Glucose, Whole Blood 142 mg/dL (60-115)
[2022-02-09] MEDS: cephALEXin 500 MG CAPSULE PO ×2 (00:12→11:01)
--- NOTE | 2022-02-09 01:14 | PC.NURSE ---
Blood sugar was 142 at HS. No insulin coverage provided per sliding scale protocol
[2022-02-09] MEDS: Levothyroxine Sodium 50 MCG TABLET PO (05:56)
[2022-02-09 06:00] VITALS: BP 140/82; PULSE 62; RESP 17; TEMP 36.3; O2SAT 97
[2022-02-09 08:20] LABS: Glucose, Whole Blood 81 mg/dL (60-115)
[2022-02-09] MEDS: Divalproex Sodium 250 MG TABLET.DR PO (08:46)
[2022-02-09] MEDS: Sertraline HCL 50 MG TABLET PO (08:46)
[2022-02-09] MEDS: amLODIPine Besylate 5 MG TABLET PO (08:46)
[2022-02-09] MEDS: carvediloL 12.5 MG TABLET PO ×2 (08:46→20:14)
[2022-02-09] MEDS: Atorvastatin Calcium 80 MG TABLET PO (08:46)
[2022-02-09 09:00] LABS: MANUAL DIFF FLAG NO
[2022-02-09 09:03] LABS: Basophils Percent Auto 0.7 % (0-2); Eosinophils Absolute Auto 0.2 X10*3/uL (0.0-0.4); Eosinophils Percent Auto 4.4 % (0-4); Hematocrit 37.6 % (37.0-47.0); Hemoglobin 12.5 g/dl (12.0-16.0); Imm Gran Abs Auto 0.15 X10*3/uL (0.00-0.03); Imm Gran Pct Auto 2.7 % (0.0-0.4); Lymphocytes Absolute Auto 1.6 X10*3/uL (1.2-4.9); Lymphocytes Percent Auto 29.5 % (20-40); Mean Corpuscular HGB Conc 33.2 g/dl (31.0-35.0); Mean Corpuscular Hemoglobin 31.6 pg (27.0-33.0); Mean Corpuscular Volume 95.2 fL (80.0-98.0); Mean Platelet Volume 9.5 fL (9.4-12.3); Monocytes Absolute Auto 0.8 X10*3/uL (0.1-1.2); Monocytes Percent Auto 14.5 % (2-11); Neutrophils Absolute Auto 2.7 x10*3/uL (2.0-8.3); Neutrophils Percent Auto 48.2 % (45-73); Platelet Count 147 X10*3/uL (160-400); Red Blood Count 3.95 X10*6/uL (4.20-5.50); Red Cell Distribution Width 13.8 % (11.0-16.0); White Blood Count 5.5 X10*3/uL (4.8-10.8)
[2022-02-09 09:22] LABS: Alanine Aminotransferase 12 U/L (0-31); Albumin Level 3.9 g/dL (3.5-5.0); Alkaline Phosphatase 58 U/L (39-117); Anion Gap 13 (12-20); Aspartate Amino Transferase 17 U/L (5-31); Bilirubin Direct < 0.2 mg/dL (0.0-0.5); Bilirubin Total 0.4 mg/dL (0.0-1.0); Blood Urea Nitrogen 29 mg/dL (9-16); Calcium 8.7 mg/dL (8.4-10.2); Carbon Dioxide 30 mmol/L (22-29); Chloride 105 mmol/L (96-108); Creatinine Clr Calc Pharmacy 39.5; Estimated Glomerular Filt Rate 42; Glucose Random 95 mg/dL (60-115); Potassium 4.4 mmol/L (3.3-5.1); Sodium 144 mmol/L (135-145); Total Protein 6.6 g/dL (6.5-8.0)
[2022-02-09 09:46] LABS: Valproate 67.7 mcg/mL (50.0-100.0)
[2022-02-09 12:12] LABS: Glucose, Whole Blood 97 mg/dL (60-115)
--- NOTE | 2022-02-09 15:33 | HO.PSYCHPN ---
Subjective Subjective Date of Service: 02/09/22 Reason For Visit: depression, anxiety, alzheimers Subjective Notes: Conditional Voluntary Interim History: the nursing staff reported the patient had been fully compliant with treatment, she is pleasant and she stated that she misses her family. The occupational therapist reported that she has participated in groups but she is cognitively impaired. Today we had a family meeting with her [id number] at 11:30. On interview the patient is pleasantly confused. Mental Status Exam Mental Status Exam Patient Appearance: Well Grooomed Patient Orientation: Person and Situation Level of Consciousness: Awake Patient Behavior: Cooperative Mood Description: Constricted Affect Description: Labile Patient Cognition Impaired: Yes Ability to Follow Directions: Good Speech Pattern: Coherent Hallucinations: None Delusions: Not Present Thought Process: Linear Thought Content: positive for Circumstantial Judgement: Fair Diagnostics Vital Signs (24Hr): Vital Signs - 24 hr 02/08/22 18:00 02/09/22 06:00 Temperature 98.6 F 97.4 F Pulse Rate 76 62 Respiratory Rate 18 17 Blood Pressure 120/60 140/82 H Pulse Oximetry 97 97 Oxygen Delivery Method Room Air Room Air BMI result Body Mass Index 28.4 Labs Results: 02/09/22 08:50 02/09/22 08:50 Labs: Laboratory Results - last 48 hr 02/07/22 02/07/22 02/07/22 16:10 16:31 19:59 WBC RBC Hgb Hct MCV MCH MCHC RDW Plt Count MPV Immature Gran % (Auto) Neut % (Auto) Lymph % (Auto) [place] % (Auto) Eos % (Auto) Baso % (Auto) Lymph # (Auto) [place] # (Auto) Eos # (Auto) Baso # (Auto) Abs Immat Gran (auto) Absolute Neuts (auto) Absolute Nucleated RBC Nucleated RBC % (auto) Sodium Potassium Chloride Carbon Dioxide Anion Gap BUN Creatinine Estim Creat Clear Calc Estimated GFR POC Glucose 110 198 H Random Glucose Calcium Total Bilirubin Direct Bilirubin AST ALT Alkaline Phosphatase Total Protein Albumin Urine Color Yellow Urine Appearance Clear Urine pH 6.0 Ur Specific [place] 1.025 Urine Protein Negative Urine Glucose (UA) Negative Urine Ketones Trace Urine Blood Negative Urine Nitrite Negative Ur Leukocyte Esterase Negative Valproic Acid 02/08/22 02/08/22 02/08/22 07:53 08:02 08:02 WBC 4.8 RBC 3.74 L Hgb 11.7 L Hct 35.5 L MCV 94.9 MCH 31.3 MCHC 33.0 RDW 13.7 Plt Count 133 L MPV 9.7 Immature Gran % (Auto) 2.5 H Neut % (Auto) 43.2 L Lymph % (Auto) 34.8 [place] % (Auto) 13.5 H Eos % (Auto) 5.2 H Baso % (Auto) 0.8 Lymph # (Auto) 1.7 [place] # (Auto) 0.7 Eos # (Auto) 0.3 Baso # (Auto) 0.0 Abs Immat Gran (auto) 0.12 H Absolute Neuts (auto) 2.1 Absolute Nucleated RBC 0.000 Nucleated RBC % (auto) 0.0 Sodium 143 Potassium 4.1 Chloride 104 Carbon Dioxide 30 H Anion Gap 13 BUN 24 H Creatinine 1.18 Estim Creat Clear Calc TNP Estimated GFR 46 POC Glucose 79 Random Glucose 88 Calcium 8.7 Total Bilirubin Direct Bilirubin AST ALT Alkaline Phosphatase Total Protein Albumin Urine Color Urine Appearance Urine pH Ur Specific [place] Urine Protein Urine Glucose (UA) Urine Ketones Urine Blood Urine Nitrite Ur Leukocyte Esterase Valproic Acid 02/08/22 02/08/22 02/09/22 11:28 21:09 08:16 WBC RBC Hgb Hct MCV MCH MCHC RDW Plt Count MPV Immature Gran % (Auto) Neut % (Auto) Lymph % (Auto) [place] % (Auto) Eos % (Auto) Baso % (Auto) Lymph # (Auto) [place] # (Auto) Eos # (Auto) Baso # (Auto) Abs Immat Gran (auto) Absolute Neuts (auto) Absolute Nucleated RBC Nucleated RBC % (auto) Sodium Potassium Chloride Carbon Dioxide Anion Gap BUN Creatinine Estim Creat Clear Calc Estimated GFR POC Glucose 91 142 H 81 Random Glucose Calcium Total Bilirubin Direct Bilirubin AST ALT Alkaline Phosphatase Total Protein Albumin Urine Color Urine Appearance Urine pH Ur Specific [place] Urine Protein Urine Glucose (UA) Urine Ketones Urine Blood Urine Nitrite Ur Leukocyte Esterase Valproic Acid 02/09/22 02/09/22 02/09/22 08:50 08:50 12:07 WBC 5.5 RBC 3.95 L Hgb 12.5 Hct 37.6 MCV 95.2 MCH 31.6 MCHC 33.2 RDW 13.8 Plt Count 147 L MPV 9.5 Immature Gran % (Auto) 2.7 H Neut % (Auto) 48.2 Lymph % (Auto) 29.5 [place] % (Auto) 14.5 H Eos % (Auto) 4.4 H Baso % (Auto) 0.7 Lymph # (Auto) 1.6 [place] # (Auto) 0.8 Eos # (Auto) 0.2 Baso # (Auto) 0.0 Abs Immat Gran (auto) 0.15 H Absolute Neuts (auto) 2.7 Absolute Nucleated RBC 0.000 Nucleated RBC % (auto) 0.0 Sodium 144 Potassium 4.4 Chloride 105 Carbon Dioxide 30 H Anion Gap 13 BUN 29 H Creatinine 1.27 Estim Creat Clear Calc 39.5 Estimated GFR 42 POC Glucose 97 Random Glucose 95 Calcium 8.7 Total Bilirubin 0.4 Direct Bilirubin < 0.2 AST 17 ALT 12 Alkaline Phosphatase 58 Total Protein 6.6 Albumin 3.9 Urine Color Urine Appearance Urine pH Ur Specific [place] Urine Protein Urine Glucose (UA) Urine Ketones Urine Blood Urine Nitrite Ur Leukocyte Esterase Valproic Acid 67.7 Imaging Radiology Impressions: ITS Impressions Head CT 02/06/22 15:04 IMPRESSION: No acute intracranial hemorrhage or territorial infarction. Progressed moderate generalized parenchymal volume loss and mild to moderate chronic white matter microangiopathy. 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 Medications Medications Current Medications Acetaminophen (Acetaminophen 325 Mg Tablet) 650 mg PO Q6H PRN PRN Reason: Headache/Pain Mild Scale (1-3) Al Hydroxide/Mg Hydroxide (Magnesium Hydrox/Alum Hydrox 30 Ml Oral.Susp) 30 ml PO Q6H PRN PRN Reason: Heartburn/Nausea Amlodipine Besylate (Amlodipine Besylate 5 Mg Tablet) 5 mg PO DAILY [facility]; Protocol Last Admin: 02/09/22 08:46 Dose: 5 mg Artificial Tears (Artificial Tears 15 Ml Drops) 1 drop EYE-BOTH Q4H PRN PRN Reason: dry eyes Atorvastatin Calcium (Atorvastatin Calcium 80 Mg Tablet) 80 mg PO DAILY [facility] Last Admin: 02/09/22 08:46 Dose: 80 mg Carvedilol (Carvedilol 12.5 Mg Tablet) 12.5 mg PO BID [facility]; Protocol Last Admin: 02/09/22 08:46 Dose: 12.5 mg Cephalexin HCl (Cephalexin 500 Mg Capsule) 500 mg PO Q12H [facility] Stop: 02/10/22 22:59 Last Admin: 02/09/22 11:01 Dose: 500 mg Divalproex Sodium (Divalproex Sodium 250 Mg Tablet.) 250 mg PO DAILY [facility] Last Admin: 02/09/22 08:46 Dose: 250 mg Divalproex Sodium (Divalproex Sodium 500 Mg Tablet.) 500 mg PO BEDTIME [facility] Last Admin: 02/08/22 20:28 Dose: 500 mg Donepezil HCl (Donepezil Hcl 5 Mg Tablet) 5 mg PO BEDTIME [facility] Last Admin: 02/08/22 20:28 Dose: 5 mg Guaifenesin/Dextromethorphan (Guaifenesin Dm 100/10/5 Ml 5 Ml Syrup) 10 ml PO Q4H PRN PRN Reason: cough Hydroxyzine HCl (Hydroxyzine Hcl 25 Mg Tablet) 25 mg PO Q6H PRN PRN Reason: Anxiety Last Admin: 02/05/22 22:29 Dose: 25 mg Insulin Human Lispro (Insulin Lispro 100 Unit/Ml 3 Ml Vial) 0 unit SUBCUT QIDAS [facility]; Protocol Last Admin: 02/09/22 12:41 Dose: Not Given Levothyroxine Sodium (Levothyroxine Sodium 50 Mcg Tablet) 50 mcg PO DAILY@0600 [facility] Last Admin: 02/09/22 05:56 Dose: 50 mcg Magnesium Hydroxide (Milk Of Magnesia 30 Ml Oral.Susp) 30 ml PO DAILY PRN PRN Reason: Constipation Melatonin (Melatonin 3 Mg Tablet) 6 mg PO BEDTIME [facility] Last Admin: 02/08/22 20:29 Dose: 6 mg Melatonin (Melatonin 3 Mg Tablet) 3 mg PO BEDTIME PRN PRN Reason: insomnia Polyethylene Glycol (Polyethylene Glycol 3350 17 Gm Powd.Pack) 17 gm PO DAILY PRN PRN Reason: constipation Quetiapine Fumarate (Quetiapine Fumarate 50 Mg Tablet) 50 mg PO BEDTIME [facility] Last Admin: 02/08/22 20:28 Dose: 50 mg Senna/Docusate Sodium (Sennosides/Docusate Sodium Tablet) 1 tab PO DAILY PRN PRN Reason: constipation Sertraline HCl (Sertraline Hcl 50 Mg Tablet) 50 mg PO DAILY [facility] Last Admin: 02/09/22 08:46 Dose: 50 mg Trazodone HCl (Trazodone Hcl 50 Mg Tablet) 50 mg PO BEDTIME PRN PRN Reason: Insomnia Last Admin: 02/05/22 22:28 Dose: 50 mg Allergies Allergies Allergy/AdvReac Type Severity Reaction Status Date / Time No Known Allergies Allergy Verified 02/05/22 21:09 Assessment & Plan Assessment & Plan (1) Dementia: Status: Acute Code(s): F03.90 - Unspecified dementia, unspecified severity, without behavioral disturbance, psychotic disturbance, mood disturbance, and anxiety (2) Bipolar disorder: Status: Acute Code(s): F31.9 - Bipolar disorder, unspecified (3) Delirium: Status: Acute Code(s): R41.0 - Disorientation, unspecified Plan 66-year-old female with history of insulin-dependent type 2 diabetes last A1c 5.6%, hypertension, MATTIE on CPAP, CKD stage 3, hypothyroidism, Alzheimer's, and bipolar disorder with psychosis admitted to geriatric psychiatry with consult placed for medical H&P. #Bipolar disorder -Plan per psychiatry #Dementia/delerium -Plan per psychiatry #UTI -No urine culture available. UA at [facility] with 3+ leuks, slight bacteria, neg nitrites. -Complete 7 day total course keflex. # insulin-dependent type 2 diabetes -controlled with most recent A1c of 5.6% -point of care glucose -diabetic diet -Humalog on sliding scale # hypothyroidism-stable -TSH 3.24, free T4 1.28 -continue levothyroxine # hypertension-controlled -continue carvedilol # hyperlipidemia -total cholesterol 159, LDL 95, HDL 37 triglycerides 139 -continue statin #MATTIE on cpap -Would recommend CPAP use if possible on unit. Pt unsure of settings. RT can assist with settings -Will defer to psychiatry Thank you for allowing me to participate in this consult. Signing off at this time. Please do not hesitate to call for further questions. I spent ___20___ minutes with the patient and/or on the patient floor today, greater than?50% of which was spent counseling/coordinating care. Reason for contiued inpatient stay Substantial Risk for: inability to function, rapid decompensation and med/psych decompensation
[2022-02-09 17:34] LABS: Glucose, Whole Blood 144 mg/dL (60-115)
[2022-02-09 18:00] VITALS: BP 157/75; PULSE 109; RESP 18; TEMP 36.3; O2SAT 95
[2022-02-09] MEDS: Divalproex Sodium 500 MG TABLET.DR PO (20:13)
[2022-02-09] MEDS: Melatonin 3 MG TABLET 6 MG PO (20:13)
[2022-02-09] MEDS: QUEtiapine Fumarate 50 MG TABLET PO (20:14)
[2022-02-09] MEDS: Donepezil HCl 5 MG TABLET PO (20:14)
[2022-02-09 21:35] LABS: Glucose, Whole Blood 126 mg/dL (60-115)
[2022-02-10] MEDS: cephALEXin 500 MG CAPSULE PO ×2 (02:05→13:27)
[2022-02-10] MEDS: Levothyroxine Sodium 50 MCG TABLET PO (06:07)
[2022-02-10 07:55] LABS: Glucose, Whole Blood 96 mg/dL (60-115)
[2022-02-10 08:35] VITALS: BP 171/81; PULSE 74; RESP 18; TEMP 36.3; O2SAT 99
[2022-02-10] MEDS: amLODIPine Besylate 5 MG TABLET PO (08:41)
[2022-02-10] MEDS: Divalproex Sodium 250 MG TABLET.DR PO (08:42)
[2022-02-10] MEDS: carvediloL 12.5 MG TABLET PO ×2 (08:42→20:47)
[2022-02-10] MEDS: Sertraline HCL 50 MG TABLET PO (08:42)
[2022-02-10] MEDS: Atorvastatin Calcium 80 MG TABLET PO (08:43)
[2022-02-10 18:00] VITALS: BP 158/77; PULSE 74; RESP 18; TEMP 36.6; O2SAT 95
[2022-02-10] MEDS: Melatonin 3 MG TABLET 6 MG PO (20:47)
[2022-02-10] MEDS: Divalproex Sodium 500 MG TABLET.DR PO (20:47)
[2022-02-10] MEDS: Donepezil HCl 5 MG TABLET PO (20:47)
[2022-02-10] MEDS: QUEtiapine Fumarate 50 MG TABLET PO (20:48)
--- NOTE | 2022-02-10 22:35 | HO.PSYCHPN ---
Subjective Subjective Date of Service: 02/10/22 Reason For Visit: depression, anxiety, alzheimers Subjective Notes: Low Warning Interim History: Met with pt's team, she is not requiring insulin correction, will d/c sliding scale. I spoke with pt this evening, says whit john, has no questions or concerns. Sleep is as good as always. Feels safe. Appetite is good. Medication Compliance: Yes Side effects from medications: No Attending Groups: Yes Review of Systems Acute medical concerns: No Medical Review of Systems: unchanged Mental Status Exam Mental Status Exam Narrative: Patient Appearance: Well Grooomed Patient Orientation: Person and Situation Level of Consciousness: Awake Patient Behavior: Cooperative Mood Description: Constricted Affect Description: Labile Patient Cognition Impaired: Yes Ability to Follow Directions: Good Speech Pattern: Coherent Hallucinations: None Delusions: Not Present Thought Process: Linear Thought Content: positive for Circumstantial Judgement: Fair Diagnostics Vital Signs (24Hr): Vital Signs - 24 hr 02/10/22 08:35 02/10/22 18:00 Temperature 97.3 F 97.8 F Pulse Rate 74 74 Respiratory Rate 18 18 Blood Pressure 171/81 H 158/77 H Pulse Oximetry 99 95 Oxygen Delivery Method Room Air Room Air BMI result Body Mass Index 28.4 Labs Results: 02/09/22 08:50 02/09/22 08:50 Labs: Laboratory Results - last 48 hr 02/09/22 02/09/22 02/09/22 08:16 08:50 08:50 WBC 5.5 RBC 3.95 L Hgb 12.5 Hct 37.6 MCV 95.2 MCH 31.6 MCHC 33.2 RDW 13.8 Plt Count 147 L MPV 9.5 Immature Gran % (Auto) 2.7 H Neut % (Auto) 48.2 Lymph % (Auto) 29.5 [place] % (Auto) 14.5 H Eos % (Auto) 4.4 H Baso % (Auto) 0.7 Lymph # (Auto) 1.6 [place] # (Auto) 0.8 Eos # (Auto) 0.2 Baso # (Auto) 0.0 Abs Immat Gran (auto) 0.15 H Absolute Neuts (auto) 2.7 Absolute Nucleated RBC 0.000 Nucleated RBC % (auto) 0.0 Sodium 144 Potassium 4.4 Chloride 105 Carbon Dioxide 30 H Anion Gap 13 BUN 29 H Creatinine 1.27 Estim Creat Clear Calc 39.5 Estimated GFR 42 POC Glucose 81 Random Glucose 95 Calcium 8.7 Total Bilirubin 0.4 Direct Bilirubin < 0.2 AST 17 ALT 12 Alkaline Phosphatase 58 Total Protein 6.6 Albumin 3.9 Valproic Acid 67.7 02/09/22 02/09/22 02/09/22 12:07 17:29 21:00 WBC RBC Hgb Hct MCV MCH MCHC RDW Plt Count MPV Immature Gran % (Auto) Neut % (Auto) Lymph % (Auto) [place] % (Auto) Eos % (Auto) Baso % (Auto) Lymph # (Auto) [place] # (Auto) Eos # (Auto) Baso # (Auto) Abs Immat Gran (auto) Absolute Neuts (auto) Absolute Nucleated RBC Nucleated RBC % (auto) Sodium Potassium Chloride Carbon Dioxide Anion Gap BUN Creatinine Estim Creat Clear Calc Estimated GFR POC Glucose 97 144 H 126 H Random Glucose Calcium Total Bilirubin Direct Bilirubin AST ALT Alkaline Phosphatase Total Protein Albumin Valproic Acid 02/10/22 07:51 WBC RBC Hgb Hct MCV MCH MCHC RDW Plt Count MPV Immature Gran % (Auto) Neut % (Auto) Lymph % (Auto) [place] % (Auto) Eos % (Auto) Baso % (Auto) Lymph # (Auto) [place] # (Auto) Eos # (Auto) Baso # (Auto) Abs Immat Gran (auto) Absolute Neuts (auto) Absolute Nucleated RBC Nucleated RBC % (auto) Sodium Potassium Chloride Carbon Dioxide Anion Gap BUN Creatinine Estim Creat Clear Calc Estimated GFR POC Glucose 96 Random Glucose Calcium Total Bilirubin Direct Bilirubin AST ALT Alkaline Phosphatase Total Protein Albumin Valproic Acid Imaging Radiology Impressions: ITS Impressions Head CT 02/06/22 15:04 IMPRESSION: No acute intracranial hemorrhage or territorial infarction. Progressed moderate generalized parenchymal volume loss and mild to moderate chronic white matter microangiopathy. 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 Medications Medications Current Medications Acetaminophen (Acetaminophen 325 Mg Tablet) 650 mg PO Q6H PRN PRN Reason: Headache/Pain Mild Scale (1-3) Al Hydroxide/Mg Hydroxide (Magnesium Hydrox/Alum Hydrox 30 Ml Oral.Susp) 30 ml PO Q6H PRN PRN Reason: Heartburn/Nausea Amlodipine Besylate (Amlodipine Besylate 5 Mg Tablet) 5 mg PO DAILY [facility]; Protocol Last Admin: 02/10/22 08:41 Dose: 5 mg Artificial Tears (Artificial Tears 15 Ml Drops) 1 drop EYE-BOTH Q4H PRN PRN Reason: dry eyes Atorvastatin Calcium (Atorvastatin Calcium 80 Mg Tablet) 80 mg PO DAILY [facility] Last Admin: 02/10/22 08:43 Dose: 80 mg Carvedilol (Carvedilol 12.5 Mg Tablet) 12.5 mg PO BID [facility]; Protocol Last Admin: 02/10/22 20:47 Dose: 12.5 mg Cephalexin HCl (Cephalexin 500 Mg Capsule) 500 mg PO Q12H [facility] Stop: 02/10/22 22:59 Last Admin: 02/10/22 13:27 Dose: 500 mg Divalproex Sodium (Divalproex Sodium 250 Mg Tablet.) 250 mg PO DAILY [facility] Last Admin: 02/10/22 08:42 Dose: 250 mg Divalproex Sodium (Divalproex Sodium 500 Mg Tablet.) 500 mg PO BEDTIME [facility] Last Admin: 02/10/22 20:47 Dose: 500 mg Donepezil HCl (Donepezil Hcl 5 Mg Tablet) 5 mg PO BEDTIME [facility] Last Admin: 02/10/22 20:47 Dose: 5 mg Guaifenesin/Dextromethorphan (Guaifenesin Dm 100/10/5 Ml 5 Ml Syrup) 10 ml PO Q4H PRN PRN Reason: cough Hydroxyzine HCl (Hydroxyzine Hcl 25 Mg Tablet) 25 mg PO Q6H PRN PRN Reason: Anxiety Last Admin: 02/05/22 22:29 Dose: 25 mg Levothyroxine Sodium (Levothyroxine Sodium 50 Mcg Tablet) 50 mcg PO DAILY@0600 [facility] Last Admin: 02/10/22 06:07 Dose: 50 mcg Magnesium Hydroxide (Milk Of Magnesia 30 Ml Oral.Susp) 30 ml PO DAILY PRN PRN Reason: Constipation Melatonin (Melatonin 3 Mg Tablet) 6 mg PO BEDTIME [facility] Last Admin: 02/10/22 20:47 Dose: 6 mg Melatonin (Melatonin 3 Mg Tablet) 3 mg PO BEDTIME PRN PRN Reason: insomnia Polyethylene Glycol (Polyethylene Glycol 3350 17 Gm Powd.Pack) 17 gm PO DAILY PRN PRN Reason: constipation Quetiapine Fumarate (Quetiapine Fumarate 50 Mg Tablet) 50 mg PO BEDTIME [facility] Last Admin: 02/10/22 20:48 Dose: 50 mg Senna/Docusate Sodium (Sennosides/Docusate Sodium Tablet) 1 tab PO DAILY PRN PRN Reason: constipation Sertraline HCl (Sertraline Hcl 50 Mg Tablet) 50 mg PO DAILY [facility] Last Admin: 02/10/22 08:42 Dose: 50 mg Trazodone HCl (Trazodone Hcl 50 Mg Tablet) 50 mg PO BEDTIME PRN PRN Reason: Insomnia Last Admin: 02/05/22 22:28 Dose: 50 mg Allergies Allergies Allergy/AdvReac Type Severity Reaction Status Date / Time No Known Allergies Allergy Verified 02/05/22 21:09 Assessment & Plan Assessment & Plan (1) Dementia: Status: Acute Code(s): F03.90 - Unspecified dementia, unspecified severity, without behavioral disturbance, psychotic disturbance, mood disturbance, and anxiety (2) Bipolar disorder: Status: Acute Code(s): F31.9 - Bipolar disorder, unspecified (3) Delirium: Status: Acute Code(s): R41.0 - Disorientation, unspecified Plan the patient is an elderly female with a past history of bipolar disorder, dementia Alzheimer's type for the last 6 months, admitted for recent exacerbation of psychosis and violent behavior.? Very poor historian unable to provide more information.? Plan 1. Gather collateral information.? 2. Continue with regular medications.? 3.? Continue medical workout. I spent minutes with the patient and/or on the patient floor today, greater than?50% of which was spent counseling/coordinating care. Patient educated on: other Reason for contiued inpatient stay Substantial Risk for: inability to function, rapid decompensation and med/psych decompensation
[2022-02-11] MEDS: Levothyroxine Sodium 50 MCG TABLET PO (06:02)
[2022-02-11 07:45] VITALS: BP 175/87; PULSE 63; RESP 14; TEMP 36.1; O2SAT 95
--- NOTE | 2022-02-11 08:30 | P.PNPSI_ITS ---
Subjective Subjective Date of Service: 02/10/22 Reason For Visit: depression, anxiety, alzheimers Subjective Notes: Conditional Voluntary Interim History: Patient was seen and discussed in rounds today. Records and plans were reviewed. She has been doing well and not requiring any insulin. Eating and sleeping about 8 hours. She is medication compliant. No complaints of depression or anxiety. No changes were made today Medication Compliance: Yes Side effects from medications: No Attending Groups: Yes Review of Systems Acute medical concerns: No Medical Review of Systems: unchanged Review of Systems Review of Systems Yes all other systems are reviewed and are negative Mental Status Exam Mental Status Exam Narrative: In today's visit, she is alert, oriented x2. Normal speech. Little eye contact. Affect is constricted. No signs of psychosis. No dangerous behaviors. Cognitively impaired. Judgment is marginal Diagnostics Vital Signs (24Hr): Vital Signs - 24 hr 02/10/22 08:35 02/10/22 18:00 Temperature 97.3 F 97.8 F Pulse Rate 74 74 Respiratory Rate 18 18 Blood Pressure 171/81 H 158/77 H Pulse Oximetry 99 95 Oxygen Delivery Method Room Air Room Air BMI result Body Mass Index 28.4 Labs Results: 02/09/22 08:50 02/09/22 08:50 Labs: Laboratory Results - last 48 hr 02/09/22 02/09/22 02/09/22 08:50 08:50 12:07 WBC 5.5 RBC 3.95 L Hgb 12.5 Hct 37.6 MCV 95.2 MCH 31.6 MCHC 33.2 RDW 13.8 Plt Count 147 L MPV 9.5 Immature Gran % (Auto) 2.7 H Neut % (Auto) 48.2 Lymph % (Auto) 29.5 Cuming % (Auto) 14.5 H Eos % (Auto) 4.4 H Baso % (Auto) 0.7 Lymph # (Auto) 1.6 [place] # (Auto) 0.8 Eos # (Auto) 0.2 Baso # (Auto) 0.0 Abs Immat Gran (auto) 0.15 H Absolute Neuts (auto) 2.7 Absolute Nucleated RBC 0.000 Nucleated RBC % (auto) 0.0 Sodium 144 Potassium 4.4 Chloride 105 Carbon Dioxide 30 H Anion Gap 13 BUN 29 H Creatinine 1.27 Estim Creat Clear Calc 39.5 Estimated GFR 42 POC Glucose 97 Random Glucose 95 Calcium 8.7 Total Bilirubin 0.4 Direct Bilirubin < 0.2 AST 17 ALT 12 Alkaline Phosphatase 58 Total Protein 6.6 Albumin 3.9 Valproic Acid 67.7 02/09/22 02/09/22 02/10/22 17:29 21:00 07:51 WBC RBC Hgb Hct MCV MCH MCHC RDW Plt Count MPV Immature Gran % (Auto) Neut % (Auto) Lymph % (Auto) [place] % (Auto) Eos % (Auto) Baso % (Auto) Lymph # (Auto) [place] # (Auto) Eos # (Auto) Baso # (Auto) Abs Immat Gran (auto) Absolute Neuts (auto) Absolute Nucleated RBC Nucleated RBC % (auto) Sodium Potassium Chloride Carbon Dioxide Anion Gap BUN Creatinine Estim Creat Clear Calc Estimated GFR POC Glucose 144 H 126 H 96 Random Glucose Calcium Total Bilirubin Direct Bilirubin AST ALT Alkaline Phosphatase Total Protein Albumin Valproic Acid Imaging Radiology Impressions: ITS Impressions Head CT 02/06/22 15:04 IMPRESSION: No acute intracranial hemorrhage or territorial infarction. Progressed moderate generalized parenchymal volume loss and mild to moderate chronic white matter microangiopathy. 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 Medications Medications Current Medications Acetaminophen (Acetaminophen 325 Mg Tablet) 650 mg PO Q6H PRN PRN Reason: Headache/Pain Mild Scale (1-3) Al Hydroxide/Mg Hydroxide (Magnesium Hydrox/Alum Hydrox 30 Ml Oral.Susp) 30 ml PO Q6H PRN PRN Reason: Heartburn/Nausea Amlodipine Besylate (Amlodipine Besylate 5 Mg Tablet) 5 mg PO DAILY [facility]; Protocol Last Admin: 02/10/22 08:41 Dose: 5 mg Artificial Tears (Artificial Tears 15 Ml Drops) 1 drop EYE-BOTH Q4H PRN PRN Reason: dry eyes Atorvastatin Calcium (Atorvastatin Calcium 80 Mg Tablet) 80 mg PO DAILY [facility] Last Admin: 02/10/22 08:43 Dose: 80 mg Carvedilol (Carvedilol 12.5 Mg Tablet) 12.5 mg PO BID [facility]; Protocol Last Admin: 02/10/22 20:47 Dose: 12.5 mg Divalproex Sodium (Divalproex Sodium 250 Mg Tablet.) 250 mg PO DAILY [facility] Last Admin: 02/10/22 08:42 Dose: 250 mg Divalproex Sodium (Divalproex Sodium 500 Mg Tablet.) 500 mg PO BEDTIME [facility] Last Admin: 02/10/22 20:47 Dose: 500 mg Donepezil HCl (Donepezil Hcl 5 Mg Tablet) 5 mg PO BEDTIME [facility] Last Admin: 02/10/22 20:47 Dose: 5 mg Guaifenesin/Dextromethorphan (Guaifenesin Dm 100/10/5 Ml 5 Ml Syrup) 10 ml PO Q4H PRN PRN Reason: cough Hydroxyzine HCl (Hydroxyzine Hcl 25 Mg Tablet) 25 mg PO Q6H PRN PRN Reason: Anxiety Last Admin: 02/05/22 22:29 Dose: 25 mg Levothyroxine Sodium (Levothyroxine Sodium 50 Mcg Tablet) 50 mcg PO DAILY@0600 [facility] Last Admin: 02/11/22 06:02 Dose: 50 mcg Magnesium Hydroxide (Milk Of Magnesia 30 Ml Oral.Susp) 30 ml PO DAILY PRN PRN Reason: Constipation Melatonin (Melatonin 3 Mg Tablet) 6 mg PO BEDTIME [facility] Last Admin: 02/10/22 20:47 Dose: 6 mg Melatonin (Melatonin 3 Mg Tablet) 3 mg PO BEDTIME PRN PRN Reason: insomnia Polyethylene Glycol (Polyethylene Glycol 3350 17 Gm Powd.Pack) 17 gm PO DAILY PRN PRN Reason: constipation Quetiapine Fumarate (Quetiapine Fumarate 50 Mg Tablet) 50 mg PO BEDTIME [facility] Last Admin: 02/10/22 20:48 Dose: 50 mg Senna/Docusate Sodium (Sennosides/Docusate Sodium Tablet) 1 tab PO DAILY PRN PRN Reason: constipation Sertraline HCl (Sertraline Hcl 50 Mg Tablet) 50 mg PO DAILY [facility] Last Admin: 02/10/22 08:42 Dose: 50 mg Trazodone HCl (Trazodone Hcl 50 Mg Tablet) 50 mg PO BEDTIME PRN PRN Reason: Insomnia Last Admin: 02/05/22 22:28 Dose: 50 mg Allergies Allergies Allergy/AdvReac Type Severity Reaction Status Date / Time No Known Allergies Allergy Verified 02/05/22 21:09 Assessment & Plan Assessment & Plan (1) Dementia: Status: Acute Code(s): F03.90 - Unspecified dementia, unspecified severity, without behavioral disturbance, psychotic disturbance, mood disturbance, and anxiety (2) Bipolar disorder: Status: Acute Code(s): F31.9 - Bipolar disorder, unspecified (3) Delirium: Status: Acute Code(s): R41.0 - Disorientation, unspecified Plan the patient is an elderly female with a past history of bipolar disorder, dementia Alzheimer's type for the last 6 months, admitted for recent exacerbation of psychosis and violent behavior.? Very poor historian unable to provide more information.? Plan 1. Gather collateral information.? 2. Continue with regular medications.? 3.? Continue medical workout. 02/11: Continue current regimen and plans I spent minutes with the patient and/or on the patient floor today, greater than?50% of which was spent counseling/coordinating care. Reason for contiued inpatient stay Substantial Risk for: inability to function
[2022-02-11] MEDS: Atorvastatin Calcium 80 MG TABLET PO (08:34)
[2022-02-11] MEDS: carvediloL 12.5 MG TABLET PO ×2 (08:34→22:28)
[2022-02-11] MEDS: Divalproex Sodium 250 MG TABLET.DR PO (08:34)
[2022-02-11] MEDS: amLODIPine Besylate 5 MG TABLET PO (08:34)
[2022-02-11] MEDS: Sertraline HCL 50 MG TABLET PO (08:35)
[2022-02-11 18:00] VITALS: BP 178/80; PULSE 62; RESP 16; TEMP 36.6; O2SAT 98
[2022-02-11] MEDS: traZODone HCL 50 MG TABLET PO (22:28)
[2022-02-11] MEDS: QUEtiapine Fumarate 50 MG TABLET PO (22:29)
[2022-02-11] MEDS: Donepezil HCl 5 MG TABLET PO (22:29)
[2022-02-11] MEDS: Melatonin 3 MG TABLET 6 MG PO (22:29)
[2022-02-11] MEDS: Divalproex Sodium 500 MG TABLET.DR PO (22:36)
[2022-02-12] MEDS: Levothyroxine Sodium 50 MCG TABLET PO (05:56)
[2022-02-12 06:00] VITALS: BP 153/72; PULSE 58; RESP 17; TEMP 36.4; O2SAT 98
[2022-02-12] MEDS: carvediloL 12.5 MG TABLET PO ×2 (10:04→20:50)
[2022-02-12] MEDS: amLODIPine Besylate 5 MG TABLET PO (10:04)
[2022-02-12] MEDS: Atorvastatin Calcium 80 MG TABLET PO (10:04)
[2022-02-12] MEDS: Sertraline HCL 50 MG TABLET PO (10:04)
[2022-02-12] MEDS: Divalproex Sodium 250 MG TABLET.DR PO (10:04)
--- NOTE | 2022-02-12 13:02 | P.PNPSI_ITS ---
Subjective Subjective Date of Service: 02/12/22 Reason For Visit: depression, anxiety, alzheimers Subjective Notes: Conditional Voluntary Interim History: The nursing staff reported the patient had been compliant with treatment. Her blood pressure was being high over the weekend. Last Saturday we had a family meeting and the family wants usp facility placement since daily living a very crowded apartment. On interview, the patient was pleasantly confused but very easily redirectable. Mental Status Exam Mental Status Exam Patient Appearance: Well Grooomed Patient Orientation: Person Level of Consciousness: Awake Patient Behavior: Cooperative Mood Description: Calm Affect Description: Labile Patient Cognition Impaired: Yes Ability to Follow Directions: Good Speech Pattern: Clear Hallucinations: None Delusions: Not Present Thought Process: Distracted Thought Content: positive for [place] Judgement: Fair Diagnostics Vital Signs (24Hr): Vital Signs - 24 hr 02/11/22 18:00 02/12/22 06:00 Temperature 97.8 F 97.6 F Pulse Rate 62 58 Respiratory Rate 16 17 Blood Pressure 178/80 H 153/72 H Pulse Oximetry 98 98 Oxygen Delivery Method Room Air Room Air BMI result Body Mass Index 28.4 Labs Results: 02/09/22 08:50 02/09/22 08:50 Imaging Radiology Impressions: ITS Impressions Head CT 02/06/22 15:04 IMPRESSION: No acute intracranial hemorrhage or territorial infarction. Progressed moderate generalized parenchymal volume loss and mild to moderate chronic white matter microangiopathy. 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 Medications Medications Current Medications Acetaminophen (Acetaminophen 325 Mg Tablet) 650 mg PO Q6H PRN PRN Reason: Headache/Pain Mild Scale (1-3) Al Hydroxide/Mg Hydroxide (Magnesium Hydrox/Alum Hydrox 30 Ml Oral.Susp) 30 ml PO Q6H PRN PRN Reason: Heartburn/Nausea Amlodipine Besylate (Amlodipine Besylate 5 Mg Tablet) 5 mg PO DAILY [facility]; Protocol Last Admin: 02/12/22 10:04 Dose: 5 mg Artificial Tears (Artificial Tears 15 Ml Drops) 1 drop EYE-BOTH Q4H PRN PRN Reason: dry eyes Atorvastatin Calcium (Atorvastatin Calcium 80 Mg Tablet) 80 mg PO DAILY [facility] Last Admin: 02/12/22 10:04 Dose: 80 mg Carvedilol (Carvedilol 12.5 Mg Tablet) 12.5 mg PO BID [facility]; Protocol Last Admin: 02/12/22 10:04 Dose: 12.5 mg Divalproex Sodium (Divalproex Sodium 250 Mg Tablet.) 250 mg PO DAILY [facility] Last Admin: 02/12/22 10:04 Dose: 250 mg Divalproex Sodium (Divalproex Sodium 500 Mg Tablet.) 500 mg PO BEDTIME [facility] Last Admin: 02/11/22 22:36 Dose: 500 mg Donepezil HCl (Donepezil Hcl 5 Mg Tablet) 5 mg PO BEDTIME [facility] Last Admin: 02/11/22 22:29 Dose: 5 mg Guaifenesin/Dextromethorphan (Guaifenesin Dm 100/10/5 Ml 5 Ml Syrup) 10 ml PO Q4H PRN PRN Reason: cough Hydroxyzine HCl (Hydroxyzine Hcl 25 Mg Tablet) 25 mg PO Q6H PRN PRN Reason: Anxiety Last Admin: 02/05/22 22:29 Dose: 25 mg Levothyroxine Sodium (Levothyroxine Sodium 50 Mcg Tablet) 50 mcg PO DAILY@0600 [facility] Last Admin: 02/12/22 05:56 Dose: 50 mcg Magnesium Hydroxide (Milk Of Magnesia 30 Ml Oral.Susp) 30 ml PO DAILY PRN PRN Reason: Constipation Melatonin (Melatonin 3 Mg Tablet) 6 mg PO BEDTIME [facility] Last Admin: 02/11/22 22:29 Dose: 6 mg Melatonin (Melatonin 3 Mg Tablet) 3 mg PO BEDTIME PRN PRN Reason: insomnia Polyethylene Glycol (Polyethylene Glycol 3350 17 Gm Powd.Pack) 17 gm PO DAILY PRN PRN Reason: constipation Quetiapine Fumarate (Quetiapine Fumarate 50 Mg Tablet) 50 mg PO BEDTIME [facility] Last Admin: 02/11/22 22:29 Dose: 50 mg Senna/Docusate Sodium (Sennosides/Docusate Sodium Tablet) 1 tab PO DAILY PRN PRN Reason: constipation Sertraline HCl (Sertraline Hcl 50 Mg Tablet) 50 mg PO DAILY [facility] Last Admin: 02/12/22 10:04 Dose: 50 mg Trazodone HCl (Trazodone Hcl 50 Mg Tablet) 50 mg PO BEDTIME PRN PRN Reason: Insomnia Last Admin: 02/11/22 22:28 Dose: 50 mg Allergies Allergies Allergy/AdvReac Type Severity Reaction Status Date / Time No Known Allergies Allergy Verified 02/05/22 21:09 Assessment & Plan Assessment & Plan (1) Dementia: Status: Acute Code(s): F03.90 - Unspecified dementia, unspecified severity, without behavioral disturb ance, psychotic disturbance, mood disturbance, and anxiety (2) Bipolar disorder: Status: Acute Code(s): F31.9 - Bipolar disorder, unspecified (3) Delirium: Status: Acute Code(s): R41.0 - Disorientation, unspecified Plan the patient is an elderly female with a past history of bipolar disorder, dementia Alzheimer's type for the last 6 months, admitted for recent exacerbation of psychosis and violent behavior.? Very poor historian unable to provide more information.? Plan 1. Gather collateral information.? 2. Continue with regular medications.? 3.? Continue medical workout. 02/11: Continue current regimen and plans I spent __20____ minutes with the patient and/or on the patient floor today, greater than?50% of which was spent counseling/coordinating care. Reason for contiued inpatient stay Substantial Risk for: inability to function, rapid decompensation and med/psych decompensation
[2022-02-12 18:00] VITALS: BP 148/73; PULSE 61; RESP 17; TEMP 36.4; O2SAT 94
[2022-02-12] MEDS: Divalproex Sodium 500 MG TABLET.DR PO (20:50)
[2022-02-12] MEDS: QUEtiapine Fumarate 50 MG TABLET PO (20:51)
[2022-02-12] MEDS: Donepezil HCl 5 MG TABLET PO (20:51)
[2022-02-12] MEDS: Melatonin 3 MG TABLET 6 MG PO (20:53)
[2022-02-13 06:00] VITALS: BP 159/71; PULSE 61; RESP 17; TEMP 36.4; O2SAT 96
[2022-02-13] MEDS: Levothyroxine Sodium 50 MCG TABLET PO (06:15)
[2022-02-13] MEDS: carvediloL 12.5 MG TABLET PO ×2 (08:12→21:11)
[2022-02-13] MEDS: Sertraline HCL 50 MG TABLET PO (08:12)
[2022-02-13] MEDS: amLODIPine Besylate 5 MG TABLET PO (08:12)
[2022-02-13] MEDS: Divalproex Sodium 250 MG TABLET.DR PO (08:12)
[2022-02-13] MEDS: Atorvastatin Calcium 80 MG TABLET PO (08:12)
--- NOTE | 2022-02-13 12:53 | HO.PSYCHPN ---
Subjective Subjective Date of Service: 02/13/22 Reason For Visit: depression, anxiety, alzheimers Subjective Notes: Conditional Voluntary Interim History: the nursing staff reported the patient slept all night, she will been quiet in the common areas polite but flat. Occupational therapist reported that even though that she is in the common areas she is poorly cognitively and she can participate slightly. The marriage and family social worker reported adult protective services or inform that when she was at home the patient broke the wrist of and knees. On interview the patient denies new symptoms so far with having not seen any violent behavior here. Mental Status Exam Mental Status Exam Patient Appearance: Appropriate Patient Orientation: Person and Situation Level of Consciousness: Awake Patient Behavior: Cooperative Mood Description: Withdrawn Affect Description: Constricted Patient Cognition Impaired: Yes Ability to Follow Directions: Good Speech Pattern: Clear Hallucinations: None Delusions: Not Present Thought Process: Distracted Thought Content: positive for [place] and positive for Circumstantial Judgement: Fair Diagnostics Vital Signs (24Hr): Vital Signs - 24 hr 02/12/22 18:00 02/13/22 06:00 Temperature 97.5 F 97.6 F Pulse Rate 61 61 Respiratory Rate 17 17 Blood Pressure 148/73 H 159/71 H Pulse Oximetry 94 96 Oxygen Delivery Method Room Air Room Air BMI result Body Mass Index 28.4 Labs Results: 02/09/22 08:50 02/09/22 08:50 Imaging Radiology Impressions: ITS Impressions Head CT 02/06/22 15:04 IMPRESSION: No acute intracranial hemorrhage or territorial infarction. Progressed moderate generalized parenchymal volume loss and mild to moderate chronic white matter microangiopathy. 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 Medications Medications Current Medications Acetaminophen (Acetaminophen 325 Mg Tablet) 650 mg PO Q6H PRN PRN Reason: Headache/Pain Mild Scale (1-3) Al Hydroxide/Mg Hydroxide (Magnesium Hydrox/Alum Hydrox 30 Ml Oral.Susp) 30 ml PO Q6H PRN PRN Reason: Heartburn/Nausea Amlodipine Besylate (Amlodipine Besylate 5 Mg Tablet) 5 mg PO DAILY [facility]; Protocol Last Admin: 02/13/22 08:12 Dose: 5 mg Artificial Tears (Artificial Tears 15 Ml Drops) 1 drop EYE-BOTH Q4H PRN PRN Reason: dry eyes Atorvastatin Calcium (Atorvastatin Calcium 80 Mg Tablet) 80 mg PO DAILY [facility] Last Admin: 02/13/22 08:12 Dose: 80 mg Carvedilol (Carvedilol 12.5 Mg Tablet) 12.5 mg PO BID [facility]; Protocol Last Admin: 02/13/22 08:12 Dose: 12.5 mg Divalproex Sodium (Divalproex Sodium 250 Mg Tablet.Dr) 250 mg PO DAILY [facility] Last Admin: 02/13/22 08:12 Dose: 250 mg Divalproex Sodium (Divalproex Sodium 500 Mg Tablet.Dr) 500 mg PO BEDTIME [facility] Last Admin: 02/12/22 20:50 Dose: 500 mg Donepezil HCl (Donepezil Hcl 5 Mg Tablet) 5 mg PO BEDTIME [facility] Last Admin: 02/12/22 20:51 Dose: 5 mg Guaifenesin/Dextromethorphan (Guaifenesin Dm 100/10/5 Ml 5 Ml Syrup) 10 ml PO Q4H PRN PRN Reason: cough Hydroxyzine HCl (Hydroxyzine Hcl 25 Mg Tablet) 25 mg PO Q6H PRN PRN Reason: Anxiety Last Admin: 02/05/22 22:29 Dose: 25 mg Levothyroxine Sodium (Levothyroxine Sodium 50 Mcg Tablet) 50 mcg PO DAILY@0600 [facility] Last Admin: 02/13/22 06:15 Dose: 50 mcg Magnesium Hydroxide (Milk Of Magnesia 30 Ml Oral.Susp) 30 ml PO DAILY PRN PRN Reason: Constipation Melatonin (Melatonin 3 Mg Tablet) 6 mg PO BEDTIME [facility] Last Admin: 02/12/22 20:53 Dose: 6 mg Melatonin (Melatonin 3 Mg Tablet) 3 mg PO BEDTIME PRN PRN Reason: insomnia Polyethylene Glycol (Polyethylene Glycol 3350 17 Gm Powd.Pack) 17 gm PO DAILY PRN PRN Reason: constipation Quetiapine Fumarate (Quetiapine Fumarate 50 Mg Tablet) 50 mg PO BEDTIME [facility] Last Admin: 02/12/22 20:51 Dose: 50 mg Senna/Docusate Sodium (Sennosides/Docusate Sodium Tablet) 1 tab PO DAILY PRN PRN Reason: constipation Sertraline HCl (Sertraline Hcl 50 Mg Tablet) 50 mg PO DAILY [facility] Last Admin: 02/13/22 08:12 Dose: 50 mg Trazodone HCl (Trazodone Hcl 50 Mg Tablet) 50 mg PO BEDTIME PRN PRN Reason: Insomnia Last Admin: 02/11/22 22:28 Dose: 50 mg Allergies Allergies Allergy/AdvReac Type Severity Reaction Status Date / Time No Known Allergies Allergy Verified 02/05/22 21:09 Assessment & Plan Assessment & Plan (1) Dementia: Status: Acute Code(s): F03.90 - Unspecified dementia, unspecified severity, without behavioral disturbance, psychotic disturbance, mood disturbance, and anxiety (2) Bipolar disorder: Status: Acute Code(s): F31.9 - Bipolar disorder, unspecified (3) Delirium: Status: Acute Code(s): R41.0 - Disorientation, unspecified Plan the patient is an elderly female with a past history of bipolar disorder, dementia Alzheimer's type for the last 6 months, admitted for recent exacerbation of psychosis and violent behavior.? Very poor historian unable to provide more information.? Plan 1. Gather collateral information.? 2. Continue with regular medications.? 3.? Continue medical workout. 02/11: Continue current regimen and plans I spent ___20___ minutes with the patient and/or on the patient floor today, greater than?50% of which was spent counseling/coordinating care. Reason for contiued inpatient stay Substantial Risk for: inability to function, rapid decompensation and med/psych decompensation
[2022-02-13 20:00] VITALS: BP 129/59; PULSE 62; RESP 16; TEMP 36.6; O2SAT 97
[2022-02-13] MEDS: Donepezil HCl 5 MG TABLET PO (21:11)
[2022-02-13] MEDS: Divalproex Sodium 500 MG TABLET.DR PO (21:11)
[2022-02-13] MEDS: Melatonin 3 MG TABLET 6 MG PO (21:12)
[2022-02-13] MEDS: Melatonin 3 MG TABLET PO (21:12)
[2022-02-13] MEDS: QUEtiapine Fumarate 50 MG TABLET PO (21:12)
[2022-02-14 06:00] VITALS: BP 144/62; PULSE 60; TEMP 36.2; O2SAT 93
[2022-02-14] MEDS: Levothyroxine Sodium 50 MCG TABLET PO (06:30)
[2022-02-14] MEDS: Sertraline HCL 50 MG TABLET PO (09:30)
[2022-02-14] MEDS: Atorvastatin Calcium 80 MG TABLET PO (09:30)
[2022-02-14] MEDS: carvediloL 12.5 MG TABLET PO ×2 (09:30→20:31)
[2022-02-14] MEDS: amLODIPine Besylate 5 MG TABLET PO (09:30)
[2022-02-14] MEDS: Divalproex Sodium 250 MG TABLET.DR PO (09:30)
--- NOTE | 2022-02-14 12:06 | HO.PSYCHPN ---
Subjective Subjective Date of Service: 02/14/22 Reason For Visit: depression, anxiety, alzheimers Subjective Notes: Conditional Voluntary Interim History: the nursing staff reported the patient has been compliant with treatment she was seen in the common areas and she is out for meals. Even though, her participation in groups is minimal. The social service worker reported that she has been referred to several senior care facilities. On interview the patient denies new symptoms. She is pleasantly confused and easily redirectable. Her daughter came to visit her. Mental Status Exam Mental Status Exam Patient Appearance: Well Grooomed Patient Orientation: Person Level of Consciousness: Awake Patient Behavior: Guarded and Passive Mood Description: Constricted Affect Description: Constricted Patient Cognition Impaired: Yes Ability to Follow Directions: Good Speech Pattern: Clear Hallucinations: None Delusions: Not Present Thought Process: Distracted and Slowed Thinking Thought Content: positive for [place] Judgement: Fair Diagnostics Vital Signs (24Hr): Vital Signs - 24 hr 02/13/22 20:00 02/14/22 06:00 Temperature 97.9 F 97.1 F Pulse Rate 62 60 Respiratory Rate 16 Blood Pressure 129/59 L 144/62 H Pulse Oximetry 97 93 Oxygen Delivery Method Room Air Room Air BMI result Body Mass Index 28.4 Labs Results: 02/09/22 08:50 02/09/22 08:50 Imaging Radiology Impressions: ITS Impressions Head CT 02/06/22 15:04 IMPRESSION: No acute intracranial hemorrhage or territorial infarction. Progressed moderate generalized parenchymal volume loss and mild to moderate chronic white matter microangiopathy. 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 Medications Medications Current Medications Acetaminophen (Acetaminophen 325 Mg Tablet) 650 mg PO Q6H PRN PRN Reason: Headache/Pain Mild Scale (1-3) Al Hydroxide/Mg Hydroxide (Magnesium Hydrox/Alum Hydrox 30 Ml Oral.Susp) 30 ml PO Q6H PRN PRN Reason: Heartburn/Nausea Amlodipine Besylate (Amlodipine Besylate 5 Mg Tablet) 5 mg PO DAILY [facility]; Protocol Last Admin: 02/14/22 09:30 Dose: 5 mg Artificial Tears (Artificial Tears 15 Ml Drops) 1 drop EYE-BOTH Q4H PRN PRN Reason: dry eyes Atorvastatin Calcium (Atorvastatin Calcium 80 Mg Tablet) 80 mg PO DAILY [facility] Last Admin: 02/14/22 09:30 Dose: 80 mg Carvedilol (Carvedilol 12.5 Mg Tablet) 12.5 mg PO BID [facility]; Protocol Last Admin: 02/14/22 09:30 Dose: 12.5 mg Divalproex Sodium (Divalproex Sodium 250 Mg Tablet.Dr) 250 mg PO DAILY [facility] Last Admin: 02/14/22 09:30 Dose: 250 mg Divalproex Sodium (Divalproex Sodium 500 Mg Tablet.Dr) 500 mg PO BEDTIME [facility] Last Admin: 02/13/22 21:11 Dose: 500 mg Donepezil HCl (Donepezil Hcl 5 Mg Tablet) 5 mg PO BEDTIME [facility] Last Admin: 02/13/22 21:11 Dose: 5 mg Guaifenesin/Dextromethorphan (Guaifenesin Dm 100/10/5 Ml 5 Ml Syrup) 10 ml PO Q4H PRN PRN Reason: cough Hydroxyzine HCl (Hydroxyzine Hcl 25 Mg Tablet) 25 mg PO Q6H PRN PRN Reason: Anxiety Last Admin: 02/05/22 22:29 Dose: 25 mg Levothyroxine Sodium (Levothyroxine Sodium 50 Mcg Tablet) 50 mcg PO DAILY@0600 [facility] Last Admin: 02/14/22 06:30 Dose: 50 mcg Magnesium Hydroxide (Milk Of Magnesia 30 Ml Oral.Susp) 30 ml PO DAILY PRN PRN Reason: Constipation Melatonin (Melatonin 3 Mg Tablet) 6 mg PO BEDTIME [facility] Last Admin: 02/13/22 21:12 Dose: 6 mg Melatonin (Melatonin 3 Mg Tablet) 3 mg PO BEDTIME PRN PRN Reason: insomnia Last Admin: 02/13/22 21:12 Dose: 3 mg Polyethylene Glycol (Polyethylene Glycol 3350 17 Gm Powd.Pack) 17 gm PO DAILY PRN PRN Reason: constipation Quetiapine Fumarate (Quetiapine Fumarate 50 Mg Tablet) 50 mg PO BEDTIME [facility] Last Admin: 02/13/22 21:12 Dose: 50 mg Senna/Docusate Sodium (Sennosides/Docusate Sodium Tablet) 1 tab PO DAILY PRN PRN Reason: constipation Sertraline HCl (Sertraline Hcl 50 Mg Tablet) 50 mg PO DAILY [facility] Last Admin: 02/14/22 09:30 Dose: 50 mg Trazodone HCl (Trazodone Hcl 50 Mg Tablet) 50 mg PO BEDTIME PRN PRN Reason: Insomnia Last Admin: 10/23/22 22:28 Dose: 50 mg Allergies Allergies Allergy/AdvReac Type Severity Reaction Status Date / Time No Known Allergies Allergy Verified 02/05/22 21:09 Assessment & Plan Assessment & Plan (1) Dementia: Status: Acute Code(s): F03.90 - Unspecified dementia, unspecified severity, without behavioral disturbance, psychotic disturbance, mood disturbance, and anxiety (2) Bipolar disorder: Status: Acute Code(s): F31.9 - Bipolar disorder, unspecified (3) Delirium: Status: Acute Code(s): R41.0 - Disorientation, unspecified Plan the patient is an elderly female with a past history of bipolar disorder, dementia Alzheimer's type for the last 6 months, admitted for recent exacerbation of psychosis and violent behavior.? Very poor historian unable to provide more information.? Plan 1. Gather collateral information.? 2. Continue with regular medications.? 3.? Discharge to assisted living facility Or senior care facility I spent __20____ minutes with the patient and/or on the patient floor today, greater than?50% of which was spent counseling/coordinating care. Reason for contiued inpatient stay Substantial Risk for: inability to function, rapid decompensation and med/psych decompensation
[2022-02-14 18:00] VITALS: BP 156/68; PULSE 67; RESP 18; TEMP 36.7; O2SAT 95
[2022-02-14] MEDS: Melatonin 3 MG TABLET 6 MG PO (20:30)
[2022-02-14] MEDS: QUEtiapine Fumarate 50 MG TABLET PO (20:31)
[2022-02-14] MEDS: Donepezil HCl 5 MG TABLET PO (20:31)
[2022-02-14] MEDS: Divalproex Sodium 500 MG TABLET.DR PO (20:31)
[2022-02-15 06:00] VITALS: BP 178/92; PULSE 69; RESP 14; TEMP 36.2; O2SAT 92
[2022-02-15] MEDS: Levothyroxine Sodium 50 MCG TABLET PO (06:12)
[2022-02-15 07:00] VITALS: BMI 29.6
[2022-02-15] MEDS: Atorvastatin Calcium 80 MG TABLET PO (08:22)
[2022-02-15] MEDS: carvediloL 12.5 MG TABLET PO ×2 (08:22→20:39)
[2022-02-15] MEDS: Divalproex Sodium 250 MG TABLET.DR PO (08:22)
[2022-02-15] MEDS: Sertraline HCL 50 MG TABLET PO (08:22)
[2022-02-15] MEDS: amLODIPine Besylate 5 MG TABLET PO (08:22)
--- NOTE | 2022-02-15 12:37 | P.PNPSI_ITS ---
Subjective Subjective Date of Service: 02/15/22 Reason For Visit: depression, anxiety, alzheimers Subjective Notes: Conditional Voluntary Interim History: The nursing staff reported the patient had been visible in the unit. She has been attending a few groups and she was visited by her family. She has been fully compliant with treatment. She slept 8 hours. The occupational therapist reported that the patient attends groups but she does not actively participate, she needs constant cues. On interview, she denies new symptoms. She was doing by herself the meditation exercises presented on the TV. Diagnostics Vital Signs (24Hr): Vital Signs - 24 hr 02/14/22 18:00 02/15/22 06:00 Temperature 98.0 F 97.2 F Pulse Rate 67 69 Respiratory Rate 18 14 Blood Pressure 156/68 H 178/92 H Pulse Oximetry 95 92 Oxygen Delivery Method Room Air Room Air BMI result Body Mass Index 29.6 Labs Results: 02/09/22 08:50 02/09/22 08:50 Imaging Radiology Impressions: ITS Impressions Head CT 02/06/22 15:04 IMPRESSION: No acute intracranial hemorrhage or territorial infarction. Progressed moderate generalized parenchymal volume loss and mild to moderate chronic white matter microangiopathy. 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 Medications Medications Current Medications Acetaminophen (Acetaminophen 325 Mg Tablet) 650 mg PO Q6H PRN PRN Reason: Headache/Pain Mild Scale (1-3) Al Hydroxide/Mg Hydroxide (Magnesium Hydrox/Alum Hydrox 30 Ml Oral.Susp) 30 ml PO Q6H PRN PRN Reason: Heartburn/Nausea Amlodipine Besylate (Amlodipine Besylate 5 Mg Tablet) 5 mg PO DAILY [facility]; Protocol Last Admin: 02/15/22 08:22 Dose: 5 mg Artificial Tears (Artificial Tears 15 Ml Drops) 1 drop EYE-BOTH Q4H PRN PRN Reason: dry eyes Atorvastatin Calcium (Atorvastatin Calcium 80 Mg Tablet) 80 mg PO DAILY [facility] Last Admin: 02/15/22 08:22 Dose: 80 mg Carvedilol (Carvedilol 12.5 Mg Tablet) 12.5 mg PO BID [facility]; Protocol Last Admin: 02/15/22 08:22 Dose: 12.5 mg Divalproex Sodium (Divalproex Sodium 250 Mg Tablet.) 250 mg PO DAILY [facility] Last Admin: 02/15/22 08:22 Dose: 250 mg Divalproex Sodium (Divalproex Sodium 500 Mg Tablet.Dr) 500 mg PO BEDTIME [facility] Last Admin: 02/14/22 20:31 Dose: 500 mg Donepezil HCl (Donepezil Hcl 10 Mg Tablet) 10 mg PO BEDTIME [facility] Guaifenesin/Dextromethorphan (Guaifenesin Dm 100/10/5 Ml 5 Ml Syrup) 10 ml PO Q4H PRN PRN Reason: cough Hydroxyzine HCl (Hydroxyzine Hcl 25 Mg Tablet) 25 mg PO Q6H PRN PRN Reason: Anxiety Last Admin: 02/05/22 22:29 Dose: 25 mg Levothyroxine Sodium (Levothyroxine Sodium 50 Mcg Tablet) 50 mcg PO DAILY@0600 [facility] Last Admin: 02/15/22 06:12 Dose: 50 mcg Magnesium Hydroxide (Milk Of Magnesia 30 Ml Oral.Susp) 30 ml PO DAILY PRN PRN Reason: Constipation Melatonin (Melatonin 3 Mg Tablet) 6 mg PO BEDTIME [facility] Last Admin: 02/14/22 20:30 Dose: 6 mg Melatonin (Melatonin 3 Mg Tablet) 3 mg PO BEDTIME PRN PRN Reason: insomnia Last Admin: 02/13/22 21:12 Dose: 3 mg Polyethylene Glycol (Polyethylene Glycol 3350 17 Gm Powd.Pack) 17 gm PO DAILY PRN PRN Reason: constipation Quetiapine Fumarate (Quetiapine Fumarate 50 Mg Tablet) 50 mg PO BEDTIME [facility] Last Admin: 02/14/22 20:31 Dose: 50 mg Senna/Docusate Sodium (Sennosides/Docusate Sodium Tablet) 1 tab PO DAILY PRN PRN Reason: constipation Sertraline HCl (Sertraline Hcl 50 Mg Tablet) 50 mg PO DAILY [facility] Last Admin: 02/15/22 08:22 Dose: 50 mg Trazodone HCl (Trazodone Hcl 50 Mg Tablet) 50 mg PO BEDTIME PRN PRN Reason: Insomnia Last Admin: 02/11/22 22:28 Dose: 50 mg Allergies Allergies Allergy/AdvReac Type Severity Reaction Status Date / Time No Known Allergies Allergy Verified 02/05/22 21:09 Assessment & Plan Assessment & Plan (1) Dementia: Status: Acute Code(s): F03.90 - Unspecified dementia, unspecified severity, without behavioral disturbance, psychotic disturbance, mood disturbance, and anxiety (2) Bipolar disorder: Status: Acute Code(s): F31.9 - Bipolar disorder, unspecified (3) Delirium: Status: Acute Code(s): R41.0 - Disorientation, unspecified Plan the patient is an elderly female with a past history of bipolar disorder, dementia Alzheimer's type for the last 6 months, admitted for recent exacerbation of psychosis and violent behavior.? Very poor historian unable to provide more information.? Plan 1. Gather collateral information.? 2. Continue with regular medications.? 3.? Discharge to assisted living facility Or care home facility 4. Increased Aricept to 10 mg p.o. q.h.s. on 02/15 I spent ___20___ minutes with the patient and/or on the patient floor today, greater than?50% of which was spent counseling/coordinating care. Reason for contiued inpatient stay Substantial Risk for: inability to function, rapid decompensation and med/psych decompensation
[2022-02-15 18:00] VITALS: BP 134/70; PULSE 68; RESP 18; TEMP 36.6; O2SAT 95
[2022-02-15] MEDS: Donepezil HCl 10 MG TABLET PO (20:40)
[2022-02-15] MEDS: QUEtiapine Fumarate 50 MG TABLET PO (20:40)
[2022-02-15] MEDS: Melatonin 3 MG TABLET 6 MG PO (20:40)
[2022-02-15] MEDS: traZODone HCL 50 MG TABLET PO (20:40)
[2022-02-15] MEDS: Divalproex Sodium 500 MG TABLET.DR PO (20:41)
[2022-02-16 06:00] VITALS: BP 191/87; PULSE 66; RESP 18; TEMP 36.2; O2SAT 96
[2022-02-16] MEDS: Levothyroxine Sodium 50 MCG TABLET PO (06:00)
[2022-02-16] MEDS: amLODIPine Besylate 5 MG TABLET PO (08:13)
[2022-02-16] MEDS: Divalproex Sodium 250 MG TABLET.DR PO (08:13)
[2022-02-16] MEDS: carvediloL 12.5 MG TABLET PO ×2 (08:13→20:25)
[2022-02-16] MEDS: Sertraline HCL 50 MG TABLET PO (08:13)
[2022-02-16] MEDS: Atorvastatin Calcium 80 MG TABLET PO (08:13)
--- NOTE | 2022-02-16 14:49 | P.PNPSI_ITS ---
Subjective Subjective Date of Service: 02/16/22 Reason For Visit: depression, anxiety, alzheimers Subjective Notes: Conditional Voluntary Interim History: The nursing staff reported the patient was quiet but she attended groups. She slept 8 hours. The social professionals reported that she was referred to several facilities for long- term placement in a retirement facility. On interview the patient reports that she is doing fine no new symptoms looks pleasantly confused and easily redirectable Mental Status Exam Mental Status Exam Patient Appearance: Well Grooomed Patient Orientation: Person and Situation Level of Consciousness: Awake Patient Behavior: Cooperative Mood Description: Calm Affect Description: Constricted Patient Cognition Impaired: Yes Ability to Follow Directions: Good Speech Pattern: Clear Hallucinations: None Delusions: Not Present Thought Process: Distracted Thought Content: positive for Circumstantial Judgement: Fair Diagnostics Vital Signs (24Hr): Vital Signs - 24 hr 02/15/22 18:00 02/16/22 06:00 Temperature 97.9 F 97.1 F Pulse Rate 68 66 Respiratory Rate 18 18 Blood Pressure 134/70 191/87 H Pulse Oximetry 95 96 Oxygen Delivery Method Room Air Room Air BMI result Body Mass Index 29.6 Labs Results: 02/09/22 08:50 02/09/22 08:50 Imaging Radiology Impressions: ITS Impressions Head CT 02/06/22 15:04 IMPRESSION: No acute intracranial hemorrhage or territorial infarction. Progressed moderate generalized parenchymal volume loss and mild to moderate chronic white matter microangiopathy. 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 Medications Medications Current Medications Acetaminophen (Acetaminophen 325 Mg Tablet) 650 mg PO Q6H PRN PRN Reason: Headache/Pain Mild Scale (1-3) Al Hydroxide/Mg Hydroxide (Magnesium Hydrox/Alum Hydrox 30 Ml Oral.Susp) 30 ml PO Q6H PRN PRN Reason: Heartburn/Nausea Amlodipine Besylate (Amlodipine Besylate 5 Mg Tablet) 5 mg PO DAILY [facility]; Protocol Last Admin: 02/16/22 08:13 Dose: 5 mg Artificial Tears (Artificial Tears 15 Ml Drops) 1 drop EYE-BOTH Q4H PRN PRN Reason: dry eyes Atorvastatin Calcium (Atorvastatin Calcium 80 Mg Tablet) 80 mg PO DAILY [facility] Last Admin: 02/16/22 08:13 Dose: 80 mg Carvedilol (Carvedilol 12.5 Mg Tablet) 12.5 mg PO BID [facility]; Protocol Last Admin: 02/16/22 08:13 Dose: 12.5 mg Divalproex Sodium (Divalproex Sodium 250 Mg Tablet.) 250 mg PO DAILY [facility] Last Admin: 02/16/22 08:13 Dose: 250 mg Divalproex Sodium (Divalproex Sodium 500 Mg Tablet.) 500 mg PO BEDTIME [facility] Last Admin: 02/15/22 20:41 Dose: 500 mg Donepezil HCl (Donepezil Hcl 10 Mg Tablet) 10 mg PO BEDTIME [facility] Last Admin: 02/15/22 20:40 Dose: 10 mg Guaifenesin/Dextromethorphan (Guaifenesin Dm 100/10/5 Ml 5 Ml Syrup) 10 ml PO Q4H PRN PRN Reason: cough Hydroxyzine HCl (Hydroxyzine Hcl 25 Mg Tablet) 25 mg PO Q6H PRN PRN Reason: Anxiety Last Admin: 02/05/22 22:29 Dose: 25 mg Levothyroxine Sodium (Levothyroxine Sodium 50 Mcg Tablet) 50 mcg PO DAILY@0600 [facility] Last Admin: 02/16/22 06:00 Dose: 50 mcg Magnesium Hydroxide (Milk Of Magnesia 30 Ml Oral.Susp) 30 ml PO DAILY PRN PRN Reason: Constipation Melatonin (Melatonin 3 Mg Tablet) 6 mg PO BEDTIME [facility] Last Admin: 02/15/22 20:40 Dose: 6 mg Melatonin (Melatonin 3 Mg Tablet) 3 mg PO BEDTIME PRN PRN Reason: insomnia Last Admin: 02/13/22 21:12 Dose: 3 mg Polyethylene Glycol (Polyethylene Glycol 3350 17 Gm Powd.Pack) 17 gm PO DAILY PRN PRN Reason: constipation Quetiapine Fumarate (Quetiapine Fumarate 50 Mg Tablet) 50 mg PO BEDTIME [facility] Last Admin: 02/15/22 20:40 Dose: 50 mg Senna/Docusate Sodium (Sennosides/Docusate Sodium Tablet) 1 tab PO DAILY PRN PRN Reason: constipation Sertraline HCl (Sertraline Hcl 50 Mg Tablet) 50 mg PO DAILY [facility] Last Admin: 02/16/22 08:13 Dose: 50 mg Trazodone HCl (Trazodone Hcl 50 Mg Tablet) 50 mg PO BEDTIME PRN PRN Reason: Insomnia Last Admin: 02/15/22 20:40 Dose: 50 mg Allergies Allergies Allergy/AdvReac Type Severity Reaction Status Date / Time No Known Allergies Allergy Verified 02/05/22 21:09 Assessment & Plan Assessment & Plan (1) Dementia: Status: Acute Code(s): F03.90 - Unspecified dementia, unspecified severity, without behavioral disturbance, psychotic disturbance, mood disturbance, and anxiety (2) Bipolar disorder: Status: Acute Code(s): F31.9 - Bipolar disorder, unspecified (3) Delirium: Status: Acute Code(s): R41.0 - Disorientation, unspecified Plan the patient is an elderly female with a past history of bipolar disorder, dementia Alzheimer's type for the last 6 months, admitted for recent exacerbation of psychosis and violent behavior.? Very poor historian unable to provide more information.? Plan 1. Gather collateral information.? 2. Continue with regular medications.? 3.? Discharge to assisted living facility Or retirement facility 4. Increased Aricept to 10 mg p.o. q.h.s. on 02/15 I spent ___20___ minutes with the patient and/or on the patient floor today, greater than?50% of which was spent counseling/coordinating care. Reason for contiued inpatient stay Substantial Risk for: inability to function, rapid decompensation and med/psych decompensation
[2022-02-16 18:00] VITALS: BP 120/55; PULSE 69; RESP 16; TEMP 36.6; O2SAT 94
[2022-02-16] MEDS: Melatonin 3 MG TABLET 6 MG PO (20:24)
[2022-02-16] MEDS: QUEtiapine Fumarate 50 MG TABLET PO (20:25)
[2022-02-16] MEDS: traZODone HCL 50 MG TABLET PO (20:25)
[2022-02-16] MEDS: Divalproex Sodium 500 MG TABLET.DR PO (20:25)
[2022-02-16] MEDS: Donepezil HCl 10 MG TABLET PO (20:26)
[2022-02-17 06:00] VITALS: BP 186/79; PULSE 65; RESP 16; TEMP 36.4; O2SAT 97
[2022-02-17] MEDS: Levothyroxine Sodium 50 MCG TABLET PO (06:08)
[2022-02-17] MEDS: Atorvastatin Calcium 80 MG TABLET PO (08:48)
[2022-02-17] MEDS: carvediloL 12.5 MG TABLET PO ×2 (08:48→20:54)
[2022-02-17] MEDS: Divalproex Sodium 250 MG TABLET.DR PO (08:48)
[2022-02-17] MEDS: amLODIPine Besylate 5 MG TABLET PO (08:48)
[2022-02-17] MEDS: Sertraline HCL 50 MG TABLET PO (08:48)
--- NOTE | 2022-02-17 11:36 | HO.PSYCHPN ---
Subjective Subjective Date of Service: 02/17/22 Reason For Visit: depression, anxiety, alzheimers Subjective Notes: Conditional Voluntary Interim History: Pt in bed. She states I don't know why I am here, what are they telling you from the outside, tell me the truth! Pt reports sleeping okay. She denies any physical symptoms. She denied SI/HI. She reports she does not think people are trying to harm her but is suspicious. My family thinks I am annoying Per nursing, pt minimally interacting with peers. No behavioral concerns. Medication Compliance: Yes Side effects from medications: No Review of Systems Review of Systems General: No fevers, malaise, unintentional weight loss HEENT: No blurred vision or diplopia Cardiovascular: No chest pain, palpitations, or leg edema Respiratory: No shortness of breath, wheezing, cough GI: No abdominal pain, nausea, vomiting, diarrhea, constipation, melena, hematochezia : No dysuria, hematuria, increased urinary frequency, urgency MSK: No myalgia Neuro: No headaches, weakness, paresthesias Skin: No rashes or lesions Yes all other systems are reviewed and are negative and Unobtainable due to mental status Mental Status Exam Mental Status Exam Narrative: Appearance: wearing hospital gown, fair hygiene in NAD Behavior:suspicious psychomotor: no agitation or retardation noted Speech: clear, some delayed in response, minimally spontaneous Thought process:some derailment Thought content:suspicious about being here Mood: okay Affect: constricted, guarded SI:denies HI:denies VH/AH: none Delusions:paranoid/suspiciousness Insight/judgment:impaired x 2. Memory/cog: alert, not oriented to situation, underlying cognitive impairments due to dementia. Diagnostics Vital Signs (24Hr): Vital Signs - 24 hr 02/17/22 18:00 02/18/22 06:00 Temperature 97.1 F 98.5 F Pulse Rate 70 65 Respiratory Rate 18 15 Blood Pressure 130/58 L 171/93 H Pulse Oximetry 96 98 Oxygen Delivery Method Room Air Room Air BMI result Body Mass Index 29.6 Labs Results: 02/09/22 08:50 02/09/22 08:50 Imaging Radiology Impressions: ITS Impressions Head CT 02/06/22 15:04 IMPRESSION: No acute intracranial hemorrhage or territorial infarction. Progressed moderate generalized parenchymal volume loss and mild to moderate chronic white matter microangiopathy. 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 Medications Medications Current Medications Acetaminophen (Acetaminophen 325 Mg Tablet) 650 mg PO Q6H PRN PRN Reason: Headache/Pain Mild Scale (1-3) Al Hydroxide/Mg Hydroxide (Magnesium Hydrox/Alum Hydrox 30 Ml Oral.Susp) 30 ml PO Q6H PRN PRN Reason: Heartburn/Nausea Amlodipine Besylate (Amlodipine Besylate 5 Mg Tablet) 5 mg PO DAILY [facility]; Protocol Last Admin: 02/18/22 08:05 Dose: 5 mg Artificial Tears (Artificial Tears 15 Ml Drops) 1 drop EYE-BOTH Q4H PRN PRN Reason: dry eyes Atorvastatin Calcium (Atorvastatin Calcium 80 Mg Tablet) 80 mg PO DAILY [facility] Last Admin: 02/18/22 08:06 Dose: 80 mg Carvedilol (Carvedilol 12.5 Mg Tablet) 12.5 mg PO BID [facility]; Protocol Last Admin: 02/18/22 08:06 Dose: 12.5 mg Divalproex Sodium (Divalproex Sodium 250 Mg Tablet.) 250 mg PO DAILY [facility] Last Admin: 02/18/22 08:06 Dose: 250 mg Divalproex Sodium (Divalproex Sodium 500 Mg Tablet.) 500 mg PO BEDTIME [facility] Last Admin: 02/17/22 20:53 Dose: 500 mg Donepezil HCl (Donepezil Hcl 10 Mg Tablet) 10 mg PO BEDTIME [facility] Last Admin: 02/17/22 20:53 Dose: 10 mg Guaifenesin/Dextromethorphan (Guaifenesin Dm 100/10/5 Ml 5 Ml Syrup) 10 ml PO Q4H PRN PRN Reason: cough Hydroxyzine HCl (Hydroxyzine Hcl 25 Mg Tablet) 25 mg PO Q6H PRN PRN Reason: Anxiety Last Admin: 02/05/22 22:29 Dose: 25 mg Levothyroxine Sodium (Levothyroxine Sodium 50 Mcg Tablet) 50 mcg PO DAILY@0600 [facility] Last Admin: 02/18/22 05:55 Dose: 50 mcg Magnesium Hydroxide (Milk Of Magnesia 30 Ml Oral.Susp) 30 ml PO DAILY PRN PRN Reason: Constipation Melatonin (Melatonin 3 Mg Tablet) 6 mg PO BEDTIME [facility] Last Admin: 02/17/22 20:53 Dose: 6 mg Melatonin (Melatonin 3 Mg Tablet) 3 mg PO BEDTIME PRN PRN Reason: insomnia Last Admin: 02/13/22 21:12 Dose: 3 mg Polyethylene Glycol (Polyethylene Glycol 3350 17 Gm Powd.Pack) 17 gm PO DAILY PRN PRN Reason: constipation Quetiapine Fumarate (Quetiapine Fumarate 50 Mg Tablet) 50 mg PO BEDTIME [facility] Last Admin: 02/17/22 20:52 Dose: 50 mg Senna/Docusate Sodium (Sennosides/Docusate Sodium Tablet) 1 tab PO DAILY PRN PRN Reason: constipation Sertraline HCl (Sertraline Hcl 50 Mg Tablet) 50 mg PO DAILY [facility] Last Admin: 02/18/22 08:06 Dose: 50 mg Trazodone HCl (Trazodone Hcl 50 Mg Tablet) 50 mg PO BEDTIME PRN PRN Reason: Insomnia Last Admin: 02/16/22 20:25 Dose: 50 mg Allergies Allergies Allergy/AdvReac Type Severity Reaction Status Date / Time No Known Allergies Allergy Verified 02/05/22 21:09 Assessment & Plan Assessment & Plan (1) Dementia: Status: Acute Code(s): F03.90 - Unspecified dementia, unspecified severity, without behavioral disturbance, psychotic disturbance, mood disturbance, and anxiety (2) Bipolar disorder: Status: Acute Code(s): F31.9 - Bipolar disorder, unspecified Plan the patient is an elderly female with a past history of bipolar disorder, dementia Alzheimer's type for the last 6 months, admitted for recent exacerbation of psychosis and violent behavior.? Very poor historian unable to provide more information.? Plan 1. Gather collateral information.? 2. Continue with regular medications.? 3.? Discharge to assisted living facility Or nursing home facility 4. Increased Aricept to 10 mg p.o. q.h.s. on 02/15 02/17 continue current tx. I spent minutes with the patient and/or on the patient floor today, greater than?50% of which was spent counseling/coordinating care. Reason for contiued inpatient stay Substantial Risk for: inability to function
[2022-02-17 18:00] VITALS: BP 130/58; PULSE 70; RESP 18; TEMP 36.2; O2SAT 96
[2022-02-17] MEDS: QUEtiapine Fumarate 50 MG TABLET PO (20:52)
[2022-02-17] MEDS: Melatonin 3 MG TABLET 6 MG PO (20:53)
[2022-02-17] MEDS: Donepezil HCl 10 MG TABLET PO (20:53)
[2022-02-17] MEDS: Divalproex Sodium 500 MG TABLET.DR PO (20:53)
[2022-02-18] MEDS: Levothyroxine Sodium 50 MCG TABLET PO (05:55)
[2022-02-18 06:00] VITALS: BP 171/93; PULSE 65; RESP 15; TEMP 36.9; O2SAT 98
[2022-02-18] MEDS: amLODIPine Besylate 5 MG TABLET PO (08:05)
[2022-02-18] MEDS: carvediloL 12.5 MG TABLET PO ×2 (08:06→20:44)
[2022-02-18] MEDS: Sertraline HCL 50 MG TABLET PO (08:06)
[2022-02-18] MEDS: Divalproex Sodium 250 MG TABLET.DR PO (08:06)
[2022-02-18] MEDS: Atorvastatin Calcium 80 MG TABLET PO (08:06)
--- NOTE | 2022-02-18 10:05 | P.PNPSI_ITS ---
Subjective Subjective Date of Service: 02/18/22 Reason For Visit: depression, anxiety, alzheimers Subjective Notes: Conditional Voluntary Healthcare Proxy: Yes Interim History: Pt more visible today. Less guarded and suspicious this board writer and her stay in hospital. She reports doing well. She denies SI/HI. She seems more social with peers today and is seen smiling at times. Per nursing, pt eating and sleeping well. Medication Compliance: Yes Review of Systems Review of Systems General: No fevers, malaise, unintentional weight loss HEENT: No blurred vision or diplopia Cardiovascular: No chest pain, palpitations, or leg edema Respiratory: No shortness of breath, wheezing, cough GI: No abdominal pain, nausea, vomiting, diarrhea, constipation, melena, hematochezia : No dysuria, hematuria, increased urinary frequency, urgency MSK: No myalgia Neuro: No headaches, weakness, paresthesias Skin: No rashes or lesions Yes all other systems are reviewed and are negative and Unobtainable due to mental status Mental Status Exam Mental Status Exam Narrative: Appearance: wearing hospital gown, fair hygiene in NAD Behavior:suspicious psychomotor: no agitation or retardation noted Speech: clear, some delayed in response, minimally spontaneous Thought process:some derailment Thought content:suspicious about being here Mood: okay Affect: constricted, guarded SI:denies HI:denies VH/AH: none Delusions:paranoid/suspiciousness Insight/judgment:impaired x 2. Memory/cog: alert, not oriented to situation, underlying cognitive impairments due to dementia. Diagnostics Vital Signs (24Hr): Vital Signs - 24 hr 02/18/22 18:00 Temperature 97.0 F Pulse Rate 67 Respiratory Rate 18 Blood Pressure 158/71 H Pulse Oximetry 95 Oxygen Delivery Method Room Air BMI result Body Mass Index 29.6 Labs Results: 02/09/22 08:50 02/09/22 08:50 Imaging Radiology Impressions: ITS Impressions Head CT 02/06/22 15:04 IMPRESSION: No acute intracranial hemorrhage or territorial infarction. Progressed moderate generalized parenchymal volume loss and mild to moderate chronic white matter microangiopathy. 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 Medications Medications Current Medications Acetaminophen (Acetaminophen 325 Mg Tablet) 650 mg PO Q6H PRN PRN Reason: Headache/Pain Mild Scale (1-3) Al Hydroxide/Mg Hydroxide (Magnesium Hydrox/Alum Hydrox 30 Ml Oral.Susp) 30 ml PO Q6H PRN PRN Reason: Heartburn/Nausea Amlodipine Besylate (Amlodipine Besylate 5 Mg Tablet) 5 mg PO DAILY [facility]; Protocol Last Admin: 02/18/22 08:05 Dose: 5 mg Artificial Tears (Artificial Tears 15 Ml Drops) 1 drop EYE-BOTH Q4H PRN PRN Reason: dry eyes Atorvastatin Calcium (Atorvastatin Calcium 80 Mg Tablet) 80 mg PO DAILY [facility] Last Admin: 02/18/22 08:06 Dose: 80 mg Carvedilol (Carvedilol 12.5 Mg Tablet) 12.5 mg PO BID [facility]; Protocol Last Admin: 02/18/22 20:44 Dose: 12.5 mg Divalproex Sodium (Divalproex Sodium 250 Mg Tablet.) 250 mg PO DAILY [facility] Last Admin: 02/18/22 08:06 Dose: 250 mg Divalproex Sodium (Divalproex Sodium 500 Mg Tablet.) 500 mg PO BEDTIME [facility] Last Admin: 02/18/22 20:45 Dose: 500 mg Donepezil HCl (Donepezil Hcl 10 Mg Tablet) 10 mg PO BEDTIME [facility] Last Admin: 02/18/22 20:44 Dose: 10 mg Guaifenesin/Dextromethorphan (Guaifenesin Dm 100/10/5 Ml 5 Ml Syrup) 10 ml PO Q4H PRN PRN Reason: cough Hydroxyzine HCl (Hydroxyzine Hcl 25 Mg Tablet) 25 mg PO Q6H PRN PRN Reason: Anxiety Last Admin: 02/05/22 22:29 Dose: 25 mg Levothyroxine Sodium (Levothyroxine Sodium 50 Mcg Tablet) 50 mcg PO DAILY@0600 [facility] Last Admin: 02/19/22 05:57 Dose: 50 mcg Magnesium Hydroxide (Milk Of Magnesia 30 Ml Oral.Susp) 30 ml PO DAILY PRN PRN Reason: Constipation Melatonin (Melatonin 3 Mg Tablet) 6 mg PO BEDTIME [facility] Last Admin: 02/18/22 20:44 Dose: 6 mg Melatonin (Melatonin 3 Mg Tablet) 3 mg PO BEDTIME PRN PRN Reason: insomnia Last Admin: 02/13/22 21:12 Dose: 3 mg Polyethylene Glycol (Polyethylene Glycol 3350 17 Gm Powd.Pack) 17 gm PO DAILY PRN PRN Reason: constipation Quetiapine Fumarate (Quetiapine Fumarate 50 Mg Tablet) 50 mg PO BEDTIME [facility] Last Admin: 02/18/22 20:44 Dose: 50 mg Senna/Docusate Sodium (Sennosides/Docusate Sodium Tablet) 1 tab PO DAILY PRN PRN Reason: constipation Sertraline HCl (Sertraline Hcl 50 Mg Tablet) 50 mg PO DAILY [facility] Last Admin: 02/18/22 08:06 Dose: 50 mg Trazodone HCl (Trazodone Hcl 50 Mg Tablet) 50 mg PO BEDTIME PRN PRN Reason: Insomnia Last Admin: 02/18/22 20:44 Dose: 50 mg Allergies Allergies Allergy/AdvReac Type Severity Reaction Status Date / Time No Known Allergies Allergy Verified 02/05/22 21:09 Assessment & Plan Assessment & Plan (1) Dementia: Status: Acute Code(s): F03.90 - Unspecified dementia, unspecified severity, without behavioral disturbance, psychotic disturbance, mood disturbance, and anxiety (2) Bipolar disorder: Status: Acute Code(s): F31.9 - Bipolar disorder, unspecified Plan the patient is an elderly female with a past history of bipolar disorder, dementia Alzheimer's type for the last 6 months, admitted for recent exacerbation of psychosis and violent behavior.? Very poor historian unable to provide more information.? Plan 1. Gather collateral information.? 2. Continue with regular medications.? 3.? Discharge to assisted living facility Or retirement facility 4. Increased Aricept to 10 mg p.o. q.h.s. on 02/15 02/17 continue current tx. 02/18 continue tx. I spent minutes with the patient and/or on the patient floor today, greater than?50% of which was spent counseling/coordinating care. Reason for contiued inpatient stay Substantial Risk for: inability to function
[2022-02-18 18:00] VITALS: BP 158/71; PULSE 67; RESP 18; TEMP 36.1; O2SAT 95
[2022-02-18] MEDS: QUEtiapine Fumarate 50 MG TABLET PO (20:44)
[2022-02-18] MEDS: traZODone HCL 50 MG TABLET PO (20:44)
[2022-02-18] MEDS: Melatonin 3 MG TABLET 6 MG PO (20:44)
[2022-02-18] MEDS: Donepezil HCl 10 MG TABLET PO (20:44)
[2022-02-18] MEDS: Divalproex Sodium 500 MG TABLET.DR PO (20:45)
[2022-02-19] MEDS: Levothyroxine Sodium 50 MCG TABLET PO (05:57)
[2022-02-19 06:00] VITALS: BP 180/99; PULSE 67; RESP 14; TEMP 36.3; O2SAT 92
[2022-02-19] MEDS: carvediloL 12.5 MG TABLET PO ×2 (08:17→20:55)
[2022-02-19] MEDS: amLODIPine Besylate 5 MG TABLET PO (08:17)
[2022-02-19] MEDS: Atorvastatin Calcium 80 MG TABLET PO (08:17)
[2022-02-19] MEDS: Sertraline HCL 50 MG TABLET PO (08:17)
[2022-02-19] MEDS: Divalproex Sodium 250 MG TABLET.DR PO (08:17)
--- NOTE | 2022-02-19 12:50 | P.PNPSI_ITS ---
Subjective Subjective Date of Service: 02/19/22 Reason For Visit: depression, anxiety, alzheimers Subjective Notes: Conditional Voluntary Interim History: The nursing staff reported the patient slept 8 hours. The occupational therapist reported that she has been pleasant and cooperative and she has attended to several groups. The social work assistant refer that he was referred to several places and we are looking for a response of longterm facilities. Her [place] test is 9/30 and her ACL and it is 3.4 so she will need an longterm facility. On interview the patient was pleasantly confused very easily to be redirected. Mental Status Exam Mental Status Exam Patient Appearance: Well Grooomed Patient Orientation: Person Level of Consciousness: Awake Patient Behavior: Cooperative Mood Description: Withdrawn Affect Description: Constricted Patient Cognition Impaired: Yes Ability to Follow Directions: Good Speech Pattern: Clear Hallucinations: None Delusions: Not Present Thought Process: Distracted Thought Content: positive for M[place] Judgement: Poor Diagnostics Vital Signs (24Hr): Vital Signs - 24 hr 02/18/22 18:00 02/19/22 06:00 Temperature 97.0 F 97.3 F Pulse Rate 67 67 Respiratory Rate 18 14 Blood Pressure 158/71 H 180/99 H Pulse Oximetry 95 92 Oxygen Delivery Method Room Air Room Air BMI result Body Mass Index 29.6 Labs Results: 02/09/22 08:50 02/09/22 08:50 Imaging Radiology Impressions: ITS Impressions Head CT 02/06/22 15:04 IMPRESSION: No acute intracranial hemorrhage or territorial infarction. Progressed moderate generalized parenchymal volume loss and mild to moderate chronic white matter microangiopathy. 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 Medications Medications Current Medications Acetaminophen (Acetaminophen 325 Mg Tablet) 650 mg PO Q6H PRN PRN Reason: Headache/Pain Mild Scale (1-3) Al Hydroxide/Mg Hydroxide (Magnesium Hydrox/Alum Hydrox 30 Ml Oral.Susp) 30 ml PO Q6H PRN PRN Reason: Heartburn/Nausea Amlodipine Besylate (Amlodipine Besylate 5 Mg Tablet) 5 mg PO DAILY [facility]; Protocol Last Admin: 02/19/22 08:17 Dose: 5 mg Artificial Tears (Artificial Tears 15 Ml Drops) 1 drop EYE-BOTH Q4H PRN PRN Reason: dry eyes Atorvastatin Calcium (Atorvastatin Calcium 80 Mg Tablet) 80 mg PO DAILY [facility] Last Admin: 02/19/22 08:17 Dose: 80 mg Carvedilol (Carvedilol 12.5 Mg Tablet) 12.5 mg PO BID [facility]; Protocol Last Admin: 02/19/22 08:17 Dose: 12.5 mg Divalproex Sodium (Divalproex Sodium 250 Mg Tablet.Dr) 250 mg PO DAILY [facility] Last Admin: 02/19/22 08:17 Dose: 250 mg Divalproex Sodium (Divalproex Sodium 500 Mg Tablet.) 500 mg PO BEDTIME [facility] Last Admin: 02/18/22 20:45 Dose: 500 mg Donepezil HCl (Donepezil Hcl 10 Mg Tablet) 10 mg PO BEDTIME [facility] Last Admin: 02/18/22 20:44 Dose: 10 mg Guaifenesin/Dextromethorphan (Guaifenesin Dm 100/10/5 Ml 5 Ml Syrup) 10 ml PO Q 4H PRN PRN Reason: cough Hydroxyzine HCl (Hydroxyzine Hcl 25 Mg Tablet) 25 mg PO Q6H PRN PRN Reason: Anxiety Last Admin: 02/05/22 22:29 Dose: 25 mg Levothyroxine Sodium (Levothyroxine Sodium 50 Mcg Tablet) 50 mcg PO DAILY@0600 [facility] Last Admin: 02/19/22 05:57 Dose: 50 mcg Magnesium Hydroxide (Milk Of Magnesia 30 Ml Oral.Susp) 30 ml PO DAILY PRN PRN Reason: Constipation Melatonin (Melatonin 3 Mg Tablet) 6 mg PO BEDTIME [facility] Last Admin: 02/18/22 20:44 Dose: 6 mg Melatonin (Melatonin 3 Mg Tablet) 3 mg PO BEDTIME PRN PRN Reason: insomnia Last Admin: 02/13/22 21:12 Dose: 3 mg Polyethylene Glycol (Polyethylene Glycol 3350 17 Gm Powd.Pack) 17 gm PO DAILY PRN PRN Reason: constipation Quetiapine Fumarate (Quetiapine Fumarate 50 Mg Tablet) 50 mg PO BEDTIME [facility] Last Admin: 02/18/22 20:44 Dose: 50 mg Senna/Docusate Sodium (Sennosides/Docusate Sodium Tablet) 1 tab PO DAILY PRN PRN Reason: constipation Sertraline HCl (Sertraline Hcl 50 Mg Tablet) 50 mg PO DAILY [facility] Last Admin: 02/19/22 08:17 Dose: 50 mg Trazodone HCl (Trazodone Hcl 50 Mg Tablet) 50 mg PO BEDTIME PRN PRN Reason: Insomnia Last Admin: 02/18/22 20:44 Dose: 50 mg Allergies Allergies Allergy/AdvReac Type Severity Reaction Status Date / Time No Known Allergies Allergy Verified 02/05/22 21:09 Assessment & Plan Assessment & Plan (1) Dementia: Status: Acute Code(s): F03.90 - Unspecified dementia, unspecified severity, without behavioral disturbance, psychotic disturbance, mood disturbance, and anxiety (2) Bipolar disorder: Status: Acute Code(s): F31.9 - Bipolar disorder, unspecified Plan the patient is an elderly female with a past history of bipolar disorder, dementia Alzheimer's type for the last 6 months, admitted for recent exacerbation of psychosis and violent behavior.? Very poor historian unable to provide more information.? Plan 1. Gather collateral information.? 2. Continue with regular medications.? 3.? Discharge to assisted living facility Or longterm facility 4. Increased Aricept to 10 mg p.o. q.h.s. on 02/15 I spent ___20___ minutes with the patient and/or on the patient floor today, greater than?50% of which was spent counseling/coordinating care. Reason for contiued inpatient stay Substantial Risk for: inability to function, rapid decompensation and med/psych decompensation
[2022-02-19 18:00] VITALS: BP 152/76; PULSE 70; RESP 18; TEMP 36.1; O2SAT 95
[2022-02-19] MEDS: Donepezil HCl 10 MG TABLET PO (20:54)
[2022-02-19] MEDS: Divalproex Sodium 500 MG TABLET.DR PO (20:55)
[2022-02-19] MEDS: Melatonin 3 MG TABLET 6 MG PO (20:55)
[2022-02-19] MEDS: traZODone HCL 50 MG TABLET PO (20:55)
[2022-02-19] MEDS: QUEtiapine Fumarate 50 MG TABLET PO (20:55)
[2022-02-20] MEDS: Levothyroxine Sodium 50 MCG TABLET PO (06:09)
[2022-02-20 08:00] VITALS: BP 143/66; PULSE 86; RESP 14; TEMP 36.2; O2SAT 94
[2022-02-20] MEDS: carvediloL 12.5 MG TABLET PO ×2 (08:16→21:34)
[2022-02-20] MEDS: Divalproex Sodium 250 MG TABLET.DR PO (08:16)
[2022-02-20] MEDS: amLODIPine Besylate 5 MG TABLET PO (08:16)
[2022-02-20] MEDS: Sertraline HCL 50 MG TABLET PO (08:17)
[2022-02-20] MEDS: Atorvastatin Calcium 80 MG TABLET PO (08:17)
--- NOTE | 2022-02-20 13:41 | P.PNPSI_ITS ---
Subjective Subjective Date of Service: 02/20/22 Reason For Visit: depression, anxiety, alzheimers Subjective Notes: Conditional Voluntary Interim History: The nursing staff reported the patient had been fully compliant with treatment, she is cognitively impaired she score 9/30 but she had been pleasant and cooperative, attending to groups. On interview the patient looks pleasantly confused denies new symptoms. Waiting for placement in assisted living facility. Mental Status Exam Mental Status Exam Patient Appearance: Well Grooomed Patient Orientation: Person and Situation Level of Consciousness: Awake Patient Behavior: Cooperative Mood Description: Withdrawn Affect Description: Constricted Patient Cognition Impaired: Yes Ability to Follow Directions: Good Speech Pattern: Clear Hallucinations: None Delusions: Not Present Thought Process: Confusion Thought Content: positive for E[place] and positive for Poverty of Content Judgement: Fair Diagnostics Vital Signs (24Hr): Vital Signs - 24 hr 02/19/22 18:00 Temperature 96.9 F Pulse Rate 70 Respiratory Rate 18 Blood Pressure 152/76 H Pulse Oximetry 95 Oxygen Delivery Method Room Air BMI result Body Mass Index 29.6 Labs Results: 02/09/22 08:50 02/09/22 08:50 Imaging Radiology Impressions: ITS Impressions Head CT 02/06/22 15:04 IMPRESSION: No acute intracranial hemorrhage or territorial infarction. Progressed moderate generalized parenchymal volume loss and mild to moderate chronic white matter microangiopathy. 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 Medications Medications Current Medications Acetaminophen (Acetaminophen 325 Mg Tablet) 650 mg PO Q6H PRN PRN Reason: Headache/Pain Mild Scale (1-3) Al Hydroxide/Mg Hydroxide (Magnesium Hydrox/Alum Hydrox 30 Ml Oral.Susp) 30 ml PO Q6H PRN PRN Reason: Heartburn/Nausea Amlodipine Besylate (Amlodipine Besylate 5 Mg Tablet) 5 mg PO DAILY [facility]; Protocol Last Admin: 02/20/22 08:16 Dose: 5 mg Artificial Tears (Artificial Tears 15 Ml Drops) 1 drop EYE-BOTH Q4H PRN PRN Reason: dry eyes Atorvastatin Calcium (Atorvastatin Calcium 80 Mg Tablet) 80 mg PO DAILY [facility] Last Admin: 02/20/22 08:17 Dose: 80 mg Carvedilol (Carvedilol 12.5 Mg Tablet) 12.5 mg PO BID [facility]; Protocol Last Admin: 02/20/22 08:16 Dose: 12.5 mg Divalproex Sodium (Divalproex Sodium 250 Mg Tablet.) 250 mg PO DAILY [facility] Last Admin: 02/20/22 08:16 Dose: 250 mg Divalproex Sodium (Divalproex Sodium 500 Mg Tablet.) 500 mg PO BEDTIME [facility] Last Admin: 02/19/22 20:55 Dose: 500 mg Donepezil HCl (Donepezil Hcl 10 Mg Tablet) 10 mg PO BEDTIME [facility] Last Admin: 02/19/22 20:54 Dose: 10 mg Guaifenesin/Dextromethorphan (Guaifenesin Dm 100/10/5 Ml 5 Ml Syrup) 10 ml PO Q4H PRN PRN Reason: cough Hydroxyzine HCl (Hydroxyzine Hcl 25 Mg Tablet) 25 mg PO Q6H PRN PRN Reason: Anxiety Last Admin: 02/05/22 22:29 Dose: 25 mg Levothyroxine Sodium (Levothyroxine Sodium 50 Mcg Tablet) 50 mcg PO DAILY@0600 [facility] Last Admin: 02/20/22 06:09 Dose: 50 mcg Magnesium Hydroxide (Milk Of Magnesia 30 Ml Oral.Susp) 30 ml PO DAILY PRN PRN Reason: Constipation Melatonin (Melatonin 3 Mg Tablet) 6 mg PO BEDTIME [facility] Last Admin: 02/19/22 20:55 Dose: 6 mg Melatonin (Melatonin 3 Mg Tablet) 3 mg PO BEDTIME PRN PRN Reason: insomnia Last Admin: 02/13/22 21:12 Dose: 3 mg Polyethylene Glycol (Polyethylene Glycol 3350 17 Gm Powd.Pack) 17 gm PO DAILY PRN PRN Reason: constipation Quetiapine Fumarate (Quetiapine Fumarate 50 Mg Tablet) 50 mg PO BEDTIME [facility] Last Admin: 02/19/22 20:55 Dose: 50 mg Senna/Docusate Sodium (Sennosides/Docusate Sodium Tablet) 1 tab PO DAILY PRN PRN Reason: constipation Sertraline HCl (Sertraline Hcl 50 Mg Tablet) 50 mg PO DAILY [facility] Last Admin: 02/20/22 08:17 Dose: 50 mg Trazodone HCl (Trazodone Hcl 50 Mg Tablet) 50 mg PO BEDTIME PRN PRN Reason: Insomnia Last Admin: 02/19/22 20:55 Dose: 50 mg Allergies Allergies Allergy/AdvReac Type Severity Reaction Status Date / Time No Known Allergies Allergy Verified 02/05/22 21:09 Assessment & Plan Assessment & Plan (1) Dementia: Status: Acute Code(s): F03.90 - Unspecified dementia, unspecified severity, without behavioral disturbance, psychotic disturbance, mood disturbance, and anxiety (2) Bipolar disorder: Status: Acute Code(s): F31.9 - Bipolar disorder, unspecified Plan the patient is an elderly female with a past history of bipolar disorder, dementia Alzheimer's type for the last 6 months, admitted for recent exacerbation of psychosis and violent behavior.? Very poor historian unable to provide more information.? Plan 1. Gather collateral information.? 2. Continue with regular medications.? 3.? Discharge to assisted living facility Or [facility] facility 4. Increased Aricept to 10 mg p.o. q.h.s. on 02/15 I spent ____20__ minutes with the patient and/or on the patient floor today, greater than?50% of which was spent counseling/coordinating care. Reason for contiued inpatient stay Substantial Risk for: inability to function, rapid decompensation and med/psych decompensation
[2022-02-20 19:30] VITALS: BP 138/69; PULSE 67; RESP 16; TEMP 36.3; O2SAT 95
[2022-02-20] MEDS: Melatonin 3 MG TABLET 6 MG PO (21:34)
[2022-02-20] MEDS: Divalproex Sodium 500 MG TABLET.DR PO (21:34)
[2022-02-20] MEDS: Donepezil HCl 10 MG TABLET PO (21:34)
[2022-02-20] MEDS: QUEtiapine Fumarate 50 MG TABLET PO (21:35)
[2022-02-21 06:00] VITALS: BP 166/83; PULSE 63; RESP 18; TEMP 36.3; O2SAT 96
[2022-02-21] MEDS: Levothyroxine Sodium 50 MCG TABLET PO (06:04)
[2022-02-21] MEDS: Divalproex Sodium 250 MG TABLET.DR PO (08:07)
[2022-02-21] MEDS: Sertraline HCL 50 MG TABLET PO (08:08)
[2022-02-21] MEDS: carvediloL 12.5 MG TABLET PO ×2 (08:08→21:06)
[2022-02-21] MEDS: amLODIPine Besylate 5 MG TABLET PO (08:08)
[2022-02-21] MEDS: Atorvastatin Calcium 80 MG TABLET PO (08:10)
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
[2022-02-21 18:00] VITALS: BP 114/69; PULSE 69; RESP 18; TEMP 36.1; O2SAT 95
[2022-02-21] MEDS: QUEtiapine Fumarate 50 MG TABLET PO (21:05)
[2022-02-21] MEDS: Divalproex Sodium 500 MG TABLET.DR PO (21:05)
[2022-02-21] MEDS: Melatonin 3 MG TABLET 6 MG PO (21:06)
[2022-02-21] MEDS: Donepezil HCl 10 MG TABLET PO (21:07)
[2022-02-22] MEDS: Levothyroxine Sodium 50 MCG TABLET PO (05:55)
[2022-02-22 06:00] VITALS: BP 165/87; PULSE 65; RESP 15; TEMP 36.1; O2SAT 98
[2022-02-22] MEDS: carvediloL 12.5 MG TABLET PO ×2 (08:30→20:16)
[2022-02-22] MEDS: Sertraline HCL 50 MG TABLET PO (08:30)
[2022-02-22] MEDS: Divalproex Sodium 250 MG TABLET.DR PO (08:30)
[2022-02-22] MEDS: Atorvastatin Calcium 80 MG TABLET PO (08:30)
[2022-02-22] MEDS: amLODIPine Besylate 5 MG TABLET PO (08:38)
--- NOTE | 2022-02-22 13:13 | HO.PSYCHPN ---
Subjective Subjective Date of Service: 02/22/22 Reason For Visit: depression, anxiety, alzheimers Subjective Notes: Conditional Voluntary Interim History: The nursing staff reported that she is more confused at time, yesterday she was found sitting on the floor. She remains incontinent urine. Yesterday she was slightly irritable but redirectable, and usual on her behavior. On interview the patient was confused but redirectable. We will do blood work and a UA find out if there is the UTI or any other medical he has problem. Mental Status Exam Mental Status Exam Patient Appearance: Well Grooomed Patient Orientation: Person and Situation Level of Consciousness: Awake Patient Behavior: Cooperative and Passive Mood Description: Calm and Withdrawn Affect Description: Constricted Patient Cognition Impaired: Yes Ability to Follow Directions: Good Speech Pattern: Clear Hallucinations: None Delusions: Not Present Thought Process: Distracted and Slowed Thinking Thought Content: positive for Poverty of Content Judgement: Fair Diagnostics Vital Signs (24Hr): Vital Signs - 24 hr 02/21/22 18:00 02/22/22 06:00 Temperature 97 F 97 F Pulse Rate 69 65 Respiratory Rate 18 15 Blood Pressure 114/69 165/87 H Pulse Oximetry 95 98 Oxygen Delivery Method Room Air Room Air BMI result Body Mass Index 29.6 Labs Results: 02/09/22 08:50 02/09/22 08:50 Imaging Radiology Impressions: ITS Impressions Head CT 02/06/22 15:04 IMPRESSION: No acute intracranial hemorrhage or territorial infarction. Progressed moderate generalized parenchymal volume loss and mild to moderate chronic white matter microangiopathy. 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 Medications Medications Current Medications Acetaminophen (Acetaminophen 325 Mg Tablet) 650 mg PO Q6H PRN PRN Reason: Headache/Pain Mild Scale (1-3) Al Hydroxide/Mg Hydroxide (Magnesium Hydrox/Alum Hydrox 30 Ml Oral.Susp) 30 ml PO Q6H PRN PRN Reason: Heartburn/Nausea Amlodipine Besylate (Amlodipine Besylate 5 Mg Tablet) 5 mg PO DAILY [facility]; Protocol Last Admin: 02/22/22 08:38 Dose: 5 mg Artificial Tears (Artificial Tears 15 Ml Drops) 1 drop EYE-BOTH Q4H PRN PRN Reason: dry eyes Atorvastatin Calcium (Atorvastatin Calcium 80 Mg Tablet) 80 mg PO DAILY [facility] Last Admin: 02/22/22 08:30 Dose: 80 mg Carvedilol (Carvedilol 12.5 Mg Tablet) 12.5 mg PO BID [facility]; Protocol Last Admin: 02/22/22 08:30 Dose: 12.5 mg Divalproex Sodium (Divalproex Sodium 250 Mg Tablet.Dr) 250 mg PO DAILY [facility] Last Admin: 02/22/22 08:30 Dose: 250 mg Divalproex Sodium (Divalproex Sodium 500 Mg Tablet.) 500 mg PO BEDTIME [facility] Last Admin: 02/21/22 21:05 Dose: 500 mg Donepezil HCl (Donepezil Hcl 10 Mg Tablet) 10 mg PO BEDTIME [facility] Last Admin: 02/21/22 21:07 Dose: 10 mg Guaifenesin/Dextromethorphan (Guaifenesin Dm 100/10/5 Ml 5 Ml Syrup) 10 ml PO Q4H PRN PRN Reason: cough Hydroxyzine HCl (Hydroxyzine Hcl 25 Mg Tablet) 25 mg PO Q6H PRN PRN Reason: Anxiety Last Admin: 02/05/22 22:29 Dose: 25 mg Levothyroxine Sodium (Levothyroxine Sodium 50 Mcg Tablet) 50 mcg PO DAILY@0600 [facility] Last Admin: 02/22/22 05:55 Dose: 50 mcg Magnesium Hydroxide (Milk Of Magnesia 30 Ml Oral.Susp) 30 ml PO DAILY PRN PRN Reason: Constipation Melatonin (Melatonin 3 Mg Tablet) 6 mg PO BEDTIME [facility] Last Admin: 02/21/22 21:06 Dose: 6 mg Melatonin (Melatonin 3 Mg Tablet) 3 mg PO BEDTIME PRN PRN Reason: insomnia Last Admin: 02/13/22 21:12 Dose: 3 mg Polyethylene Glycol (Polyethylene Glycol 3350 17 Gm Powd.Pack) 17 gm PO DAILY PRN PRN Reason: constipation Quetiapine Fumarate (Quetiapine Fumarate 50 Mg Tablet) 50 mg PO BEDTIME [facility] Last Admin: 02/21/22 21:05 Dose: 50 mg Senna/Docusate Sodium (Sennosides/Docusate Sodium Tablet) 1 tab PO DAILY PRN PRN Reason: constipation Sertraline HCl (Sertraline Hcl 50 Mg Tablet) 50 mg PO DAILY [facility] Last Admin: 02/22/22 08:30 Dose: 50 mg Trazodone HCl (Trazodone Hcl 50 Mg Tablet) 50 mg PO BEDTIME PRN PRN Reason: Insomnia Last Admin: 02/19/22 20:55 Dose: 50 mg Allergies Allergies Allergy/AdvReac Type Severity Reaction Status Date / Time No Known Allergies Allergy Verified 02/05/22 21:09 Assessment & Plan Assessment & Plan (1) Dementia: Status: Acute Code(s): F03.90 - Unspecified dementia, unspecified severity, without behavioral disturbance, psychotic disturbance, mood disturbance, and anxiety (2) Bipolar disorder: Status: Acute Code(s): F31.9 - Bipolar disorder, unspecified Plan the patient is an elderly female with a past history of bipolar disorder, dementia Alzheimer's type for the last 6 months, admitted for recent exacerbation of psychosis and violent behavior.? Very poor historian unable to provide more information.? Plan 1. Gather collateral information.? 2. Continue with regular medications.? 3.? Discharge to assisted living facility Or group home facility 4. Increased Aricept to 10 mg p.o. q.h.s. on 02/15 I spent ___20___ minutes with the patient and/or on the patient floor today, greater than?50% of which was spent counseling/coordinating care. Reason for contiued inpatient stay Substantial Risk for: inability to function, rapid decompensation and med/psych decompensation
[2022-02-22 18:00] VITALS: BP 155/80; PULSE 67; RESP 18; TEMP 36.2; O2SAT 95
[2022-02-22] MEDS: Melatonin 3 MG TABLET 6 MG PO (20:15)
[2022-02-22] MEDS: QUEtiapine Fumarate 50 MG TABLET PO (20:16)
[2022-02-22] MEDS: traZODone HCL 50 MG TABLET PO (20:16)
[2022-02-22] MEDS: Donepezil HCl 10 MG TABLET PO (20:16)
[2022-02-22] MEDS: Divalproex Sodium 500 MG TABLET.DR PO (20:16)
[2022-02-22] MEDS: Melatonin 3 MG TABLET PO (20:17)
[2022-02-23 06:00] VITALS: BP 173/85; PULSE 65; RESP 15; O2SAT 95
[2022-02-23] MEDS: Levothyroxine Sodium 50 MCG TABLET PO (06:12)
[2022-02-23 06:14] LABS: Appearance Urine Clear; Color Urine Yellow; Glucose Urine UA Negative (Negative); Leukocyte Esterase Urine Negative (Negative); Nitrite Urine Negative (Negative); Urine Blood Negative (Negative); Urine Ketones Negative (Negative); Urine Protein Negative (Neg-Trace)
[2022-02-23 06:16] LABS: Bacteria Urine None Seen (None Seen); Hyaline Casts Urine 0-2 /LPF (0-2); RBC Urine 0-2 /HPF (0-2); Squamous Epithelial Cell Urine 0-2 /HPF (0-2); WBC Urine 0-5 /HPF (0-5)
[2022-02-23 08:17] LABS: MANUAL DIFF FLAG NO
[2022-02-23 08:23] LABS: Basophils Percent Auto 0.5 % (0-2); Eosinophils Absolute Auto 0.2 X10*3/uL (0.0-0.4); Eosinophils Percent Auto 2.3 % (0-4); Hematocrit 39.8 % (37.0-47.0); Hemoglobin 12.7 g/dl (12.0-16.0); Imm Gran Abs Auto 0.06 X10*3/uL (0.00-0.03); Imm Gran Pct Auto 0.8 % (0.0-0.4); Lymphocytes Absolute Auto 1.2 X10*3/uL (1.2-4.9); Lymphocytes Percent Auto 15.6 % (20-40); Mean Corpuscular HGB Conc 31.9 g/dl (31.0-35.0); Mean Corpuscular Hemoglobin 30.4 pg (27.0-33.0); Mean Corpuscular Volume 95.2 fL (80.0-98.0); Mean Platelet Volume 9.5 fL (9.4-12.3); Monocytes Percent Auto 13.4 % (2-11); Neutrophils Absolute Auto 5.1 x10*3/uL (2.0-8.3); Neutrophils Percent Auto 67.4 % (45-73); Platelet Count 159 X10*3/uL (160-400); Red Blood Count 4.18 X10*6/uL (4.20-5.50); White Blood Count 7.5 X10*3/uL (4.8-10.8)
[2022-02-23 08:29] LABS: Estimated Average Glucose 114 mg/dL; Hemoglobin A1c % 5.6 %
[2022-02-23] MEDS: carvediloL 12.5 MG TABLET PO ×2 (08:33→20:53)
[2022-02-23] MEDS: Divalproex Sodium 250 MG TABLET.DR PO (08:33)
[2022-02-23] MEDS: Sertraline HCL 50 MG TABLET PO (08:33)
[2022-02-23] MEDS: amLODIPine Besylate 5 MG TABLET PO (08:33)
[2022-02-23] MEDS: Atorvastatin Calcium 80 MG TABLET PO (08:34)
[2022-02-23 09:25] LABS: Alanine Aminotransferase 16 U/L (0-31); Albumin Level 4.3 g/dL (3.5-5.0); Alkaline Phosphatase 59 U/L (39-117); Anion Gap 19 (12-20); Aspartate Amino Transferase 18 U/L (5-31); Bilirubin Direct 0.2 mg/dL (0.0-0.5); Bilirubin Total 0.5 mg/dL (0.0-1.0); Blood Urea Nitrogen 20 mg/dL (9-16); Calcium 9.2 mg/dL (8.4-10.2); Carbon Dioxide 26 mmol/L (22-29); Chloride 102 mmol/L (96-108); Creatinine Clr Calc Pharmacy 49.2; Estimated Glomerular Filt Rate 53; Glucose Random 103 mg/dL (60-115); Potassium 3.8 mmol/L (3.3-5.1); Sodium 143 mmol/L (135-145); Total Protein 7.5 g/dL (6.5-8.0)
--- NOTE | 2022-02-23 14:07 | P.PNPSI_ITS ---
Subjective Subjective Date of Service: 02/23/22 Reason For Visit: depression, anxiety, alzheimers Subjective Notes: Conditional Voluntary Interim History: The nursing staff reported the lab work came back with a urinalysis negative and blood per without any major changes. The nursing staff reported that the member rear for placement is that she does not have a [employer] application finished still in process. The nursing staff reported that she had been cooperative pleasant confused but easily redirectable. On interview the patient denies new symptoms, pleasantly confused Mental Status Exam Mental Status Exam Patient Appearance: Well Grooomed Patient Orientation: Person and Situation Level of Consciousness: Appropriate Patient Behavior: Cooperative Mood Description: Calm Affect Description: Constricted Patient Cognition Impaired: Yes Ability to Follow Directions: Good Speech Pattern: Clear Hallucinations: None Delusions: Not Present Thought Process: Distracted Thought Content: positive for [place] and positive for Circumstantial Judgement: Fair Diagnostics Vital Signs (24Hr): Vital Signs - 24 hr 02/22/22 18:00 02/23/22 06:00 Temperature 97.2 F Pulse Rate 67 65 Respiratory Rate 18 15 Blood Pressure 155/80 H 173/85 H Pulse Oximetry 95 95 Oxygen Delivery Method Room Air Room Air BMI result Body Mass Index 29.6 Labs Results: 02/23/22 08:06 02/23/22 08:06 Labs: Laboratory Results - last 48 hr 02/23/22 02/23/22 02/23/22 06:00 08:06 08:06 WBC 7.5 RBC 4.18 L Hgb 12.7 Hct 39.8 MCV 95.2 MCH 30.4 MCHC 31.9 RDW 14.0 Plt Count 159 L MPV 9.5 Immature Gran % (Auto) 0.8 H Neut % (Auto) 67.4 Lymph % (Auto) 15.6 L [place] % (Auto) 13.4 H Eos % (Auto) 2.3 Baso % (Auto) 0.5 Lymph # (Auto) 1.2 [place] # (Auto) 1.0 Eos # (Auto) 0.2 Baso # (Auto) 0.0 Abs Immat Gran (auto) 0.06 H Absolute Neuts (auto) 5.1 Absolute Nucleated RBC 0.000 Nucleated RBC % (auto) 0.0 Sodium 143 Potassium 3.8 Chloride 102 Carbon Dioxide 26 Anion Gap 19 BUN 20 H Creatinine 1.04 Estim Creat Clear Calc 49.2 Estimated GFR 53 Random Glucose 103 Estimat Average Glucose Hemoglobin A1c % Calcium 9.2 Total Bilirubin 0.5 Direct Bilirubin 0.2 AST 18 ALT 16 Alkaline Phosphatase 59 Total Protein 7.5 Albumin 4.3 Urine Color Yellow Urine Appearance Clear Urine pH 8.0 Ur Specific [place] 1.010 Urine Protein Negative Urine Glucose (UA) Negative Urine Ketones Negative Urine Blood Negative Urine Nitrite Negative Ur Leukocyte Esterase Negative Urine RBC 0-2 Urine WBC 0-5 Ur Squamous Epith Cells 0-2 Urine Bacteria None Seen Hyaline Casts 0-2 02/23/22 08:06 WBC RBC Hgb Hct MCV MCH MCHC RDW Plt Count MPV Immature Gran % (Auto) Neut % (Auto) Lymph % (Auto) [place] % (Auto) Eos % (Auto) Baso % (Auto) Lymph # (Auto) [place] # (Auto) Eos # (Auto) Baso # (Auto) Abs Immat Gran (auto) Absolute Neuts (auto) Absolute Nucleated RBC Nucleated RBC % (auto) Sodium Potassium Chloride Carbon Dioxide Anion Gap BUN Creatinine Estim Creat Clear Calc Estimated GFR Random Glucose Estimat Average Glucose 114 Hemoglobin A1c % 5.6 Calcium Total Bilirubin Direct Bilirubin AST ALT Alkaline Phosphatase Total Protein Albumin Urine Color Urine Appearance Urine pH Ur Specific [place] Urine Protein Urine Glucose (UA) Urine Ketones Urine Blood Urine Nitrite Ur Leukocyte Esterase Urine RBC Urine WBC Ur Squamous Epith Cells Urine Bacteria Hyaline Casts Imaging Radiology Impressions: ITS Impressions Head CT 02/06/22 15:04 IMPRESSION: No acute intracranial hemorrhage or territorial infarction. Progressed moderate generalized parenchymal volume loss and mild to moderate chronic white matter microangiopathy. 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 Medications Medications Current Medications Acetaminophen (Acetaminophen 325 Mg Tablet) 650 mg PO Q6H PRN PRN Reason: Headache/Pain Mild Scale (1-3) Al Hydroxide/Mg Hydroxide (Magnesium Hydrox/Alum Hydrox 30 Ml Oral.Susp) 30 ml PO Q6H PRN PRN Reason: Heartburn/Nausea Amlodipine Besylate (Amlodipine Besylate 5 Mg Tablet) 5 mg PO DAILY [facility]; Prot ocol Last Admin: 02/23/22 08:33 Dose: 5 mg Artificial Tears (Artificial Tears 15 Ml Drops) 1 drop EYE-BOTH Q4H PRN PRN Reason: dry eyes Atorvastatin Calcium (Atorvastatin Calcium 80 Mg Tablet) 80 mg PO DAILY [facility] Last Admin: 02/23/22 08:34 Dose: 80 mg Carvedilol (Carvedilol 12.5 Mg Tablet) 12.5 mg PO BID [facility]; Protocol Last Admin: 02/23/22 08:33 Dose: 12.5 mg Divalproex Sodium (Divalproex Sodium 250 Mg Tablet.Dr) 250 mg PO DAILY [facility] Last Admin: 02/23/22 08:33 Dose: 250 mg Divalproex Sodium (Divalproex Sodium 500 Mg Tablet.Dr) 500 mg PO BEDTIME [facility] Last Admin: 02/22/22 20:16 Dose: 500 mg Donepezil HCl (Donepezil Hcl 10 Mg Tablet) 10 mg PO BEDTIME [facility] Last Admin: 02/22/22 20:16 Dose: 10 mg Guaifenesin/Dextromethorphan (Guaifenesin Dm 100/10/5 Ml 5 Ml Syrup) 10 ml PO Q4H PRN PRN Reason: cough Hydroxyzine HCl (Hydroxyzine Hcl 25 Mg Tablet) 25 mg PO Q6H PRN PRN Reason: Anxiety Last Admin: 02/05/22 22:29 Dose: 25 mg Levothyroxine Sodium (Levothyroxine Sodium 50 Mcg Tablet) 50 mcg PO DAILY@0600 [facility] Last Admin: 02/23/22 06:12 Dose: 50 mcg Magnesium Hydroxide (Milk Of Magnesia 30 Ml Oral.Susp) 30 ml PO DAILY PRN PRN Reason: Constipation Melatonin (Melatonin 3 Mg Tablet) 6 mg PO BEDTIME [facility] Last Admin: 02/22/22 20:15 Dose: 6 mg Melatonin (Melatonin 3 Mg Tablet) 3 mg PO BEDTIME PRN PRN Reason: insomnia Last Admin: 02/22/22 20:17 Dose: 3 mg Polyethylene Glycol (Polyethylene Glycol 3350 17 Gm Powd.Pack) 17 gm PO DAILY PRN PRN Reason: constipation Quetiapine Fumarate (Quetiapine Fumarate 50 Mg Tablet) 50 mg PO BEDTIME [facility] Last Admin: 02/22/22 20:16 Dose: 50 mg Senna/Docusate Sodium (Sennosides/Docusate Sodium Tablet) 1 tab PO DAILY PRN PRN Reason: constipation Sertraline HCl (Sertraline Hcl 50 Mg Tablet) 50 mg PO DAILY [facility] Last Admin: 02/23/22 08:33 Dose: 50 mg Trazodone HCl (Trazodone Hcl 50 Mg Tablet) 50 mg PO BEDTIME PRN PRN Reason: Insomnia Last Admin: 02/22/22 20:16 Dose: 50 mg Allergies Allergies Allergy/AdvReac Type Severity Reaction Status Date / Time No Known Allergies Allergy Verified 02/05/22 21:09 Assessment & Plan Assessment & Plan (1) Dementia: Status: Acute Code(s): F03.90 - Unspecified dementia, unspecified severity, without behavioral disturbance, psychotic disturbance, mood disturbance, and anxiety (2) Bipolar disorder: Status: Acute Code(s): F31.9 - Bipolar disorder, unspecified Plan the patient is an elderly female with a past history of bipolar disorder, dementia Alzheimer's type for the last 6 months, admitted for recent exacerbation of psychosis and violent behavior.? Very poor historian unable to provide more information.? Plan 1. Gather collateral information.? 2. Continue with regular medications.? 3. Discharge to assisted living facility Or shelter facility 4. Increased Aricept to 10 mg p.o. q.h.s. on 02/15 I spent __20____ minutes with the patient and/or on the patient floor today, greater than?50% of which was spent counseling/coordinating care. Reason for contiued inpatient stay Substantial Risk for: inability to function, rapid decompensation and med/psych decompensation
[2022-02-23 18:00] VITALS: BP 151/78; PULSE 63; RESP 18; TEMP 36.7; O2SAT 98
[2022-02-23] MEDS: Divalproex Sodium 500 MG TABLET.DR PO (20:53)
[2022-02-23] MEDS: QUEtiapine Fumarate 50 MG TABLET PO (20:53)
[2022-02-23] MEDS: Donepezil HCl 10 MG TABLET PO (20:53)
[2022-02-23] MEDS: traZODone HCL 50 MG TABLET PO (20:53)
[2022-02-23] MEDS: Melatonin 3 MG TABLET 6 MG PO (20:53)
[2022-02-24] MEDS: Levothyroxine Sodium 50 MCG TABLET PO (06:21)
[2022-02-24 07:35] VITALS: BP 158/76; PULSE 66; RESP 16; TEMP 36.1; O2SAT 96
[2022-02-24] MEDS: Sertraline HCL 50 MG TABLET PO (08:16)
[2022-02-24] MEDS: Atorvastatin Calcium 80 MG TABLET PO (08:16)
[2022-02-24] MEDS: Divalproex Sodium 250 MG TABLET.DR PO (08:16)
[2022-02-24] MEDS: carvediloL 12.5 MG TABLET PO ×2 (08:16→20:22)
[2022-02-24] MEDS: amLODIPine Besylate 5 MG TABLET PO (08:16)
--- NOTE | 2022-02-24 11:50 | HO.PSYCHPN ---
Subjective Subjective Date of Service: 02/24/22 Reason For Visit: depression, anxiety, alzheimers Interim History: The nursing staff report that pt has had more trouble caring for self. needing more help with ADLs. She has been incontinent. Upon interview the patient denies new symptoms, pleasantly confused Medication Compliance: Yes Side effects from medications: No Review of Systems Medical Review of Systems: unchanged Review of Systems Review of Systems General: No fevers, malaise, unintentional weight loss HEENT: No blurred vision or diplopia Cardiovascular: No chest pain, palpitations, or leg edema Respiratory: No shortness of breath, wheezing, cough GI: No abdominal pain, nausea, vomiting, diarrhea, constipation, melena, hematochezia : No dysuria, hematuria, increased urinary frequency, urgency MSK: No myalgia Neuro: No headaches, weakness, paresthesias Skin: No rashes or lesions Yes all other systems are reviewed and are negative and Unobtainable due to mental status Mental Status Exam Mental Status Exam Narrative: Appearance: wearing hospital gown, fair hygiene in NAD Behavior:suspicious psychomotor: no agitation or retardation noted Speech: clear, some delayed in response, minimally spontaneous Thought process:some derailment Thought content:suspicious about being here Mood: okay Affect: constricted, guarded SI:denies HI:denies VH/AH: none Delusions:paranoid/suspiciousness Insight/judgment:impaired x 2. Memory/cog: alert, not oriented to situation, underlying cognitive impairments due to dementia. Patient Appearance: Well Grooomed Patient Orientation: Person and Situation Level of Consciousness: Appropriate Patient Behavior: Cooperative Mood Description: Calm Affect Description: Constricted Patient Cognition Impaired: Yes Ability to Follow Directions: Good Speech Pattern: Clear Memory Description: Intact Judgement: Poor Diagnostics Vital Signs (24Hr): Vital Signs - 24 hr 02/23/22 18:00 02/24/22 07:35 Temperature 98.0 F 97 F Pulse Rate 63 66 Respiratory Rate 18 16 Blood Pressure 151/78 H 158/76 H Pulse Oximetry 98 96 Oxygen Delivery Method Room Air Room Air BMI result Body Mass Index 29.6 Labs Results: 02/23/22 08:06 02/23/22 08:06 Labs: Laboratory Results - last 48 hr 02/23/22 02/23/22 02/23/22 06:00 08:06 08:06 WBC 7.5 RBC 4.18 L Hgb 12.7 Hct 39.8 MCV 95.2 MCH 30.4 MCHC 31.9 RDW 14.0 Plt Count 159 L MPV 9.5 Immature Gran % (Auto) 0.8 H Neut % (Auto) 67.4 Lymph % (Auto) 15.6 L [place] % (Auto) 13.4 H Eos % (Auto) 2.3 Baso % (Auto) 0.5 Lymph # (Auto) 1.2 [place] # (Auto) 1.0 Eos # (Auto) 0.2 Baso # (Auto) 0.0 Abs Immat Gran (auto) 0.06 H Absolute Neuts (auto) 5.1 Absolute Nucleated RBC 0.000 Nucleated RBC % (auto) 0.0 Sodium 143 Potassium 3.8 Chloride 102 Carbon Dioxide 26 Anion Gap 19 BUN 20 H Creatinine 1.04 Estim Creat Clear Calc 49.2 Estimated GFR 53 Random Glucose 103 Estimat Average Glucose Hemoglobin A1c % Calcium 9.2 Total Bilirubin 0.5 Direct Bilirubin 0.2 AST 18 ALT 16 Alkaline Phosphatase 59 Total Protein 7.5 Albumin 4.3 Urine Color Yellow Urine Appearance Clear Urine pH 8.0 Ur Specific [place] 1.010 Urine Protein Negative Urine Glucose (UA) Negative Urine Ketones Negative Urine Blood Negative Urine Nitrite Negative Ur Leukocyte Esterase Negative Urine RBC 0-2 Urine WBC 0-5 Ur Squamous Epith Cells 0-2 Urine Bacteria None Seen Hyaline Casts 0-2 02/23/22 08:06 WBC RBC Hgb Hct MCV MCH MCHC RDW Plt Count MPV Immature Gran % (Auto) Neut % (Auto) Lymph % (Auto) [place] % (Auto) Eos % (Auto) Baso % (Auto) Lymph # (Auto) [place] # (Auto) Eos # (Auto) Baso # (Auto) Abs Immat Gran (auto) Absolute Neuts (auto) Absolute Nucleated RBC Nucleated RBC % (auto) Sodium Potassium Chloride Carbon Dioxide Anion Gap BUN Creatinine Estim Creat Clear Calc Estimated GFR Random Glucose Estimat Average Glucose 114 Hemoglobin A1c % 5.6 Calcium Total Bilirubin Direct Bilirubin AST ALT Alkaline Phosphatase Total Protein Albumin Urine Color Urine Appearance Urine pH Ur Specific [place] Urine Protein Urine Glucose (UA) Urine Ketones Urine Blood Urine Nitrite Ur Leukocyte Esterase Urine RBC Urine WBC Ur Squamous Epith Cells Urine Bacteria Hyaline Casts Imaging Radiology Impressions: ITS Impressions Head CT 02/06/22 15:04 IMPRESSION: No acute intracranial hemorrhage or territorial infarction. Progressed moderate generalized parenchymal volume loss and mild to moderate chronic white matter microangiopathy. 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 Medications Medications Current Medications Acetaminophen (Acetaminophen 325 Mg Tablet) 650 mg PO Q6H PRN PRN Reason: Headache/Pain Mild Scale (1-3) Al Hydroxide/Mg Hydroxide (Magnesium Hydrox/Alum Hydrox 30 Ml Oral.Susp) 30 ml PO Q6H PRN PRN Reason: Heartburn/Nausea Amlodipine Besylate (Amlodipine Besylate 5 Mg Tablet) 5 mg PO DAILY [facility]; Protocol Last Admin: 02/24/22 08:16 Dose: 5 mg Artificial Tears (Artificial Tears 15 Ml Drops) 1 drop EYE-BOTH Q4H PRN PRN Reason: dry eyes Atorvastatin Calcium (Atorvastatin Calcium 80 Mg Tablet) 80 mg PO DAILY [facility] Last Admin: 02/24/22 08:16 Dose: 80 mg Carvedilol (Carvedilol 12.5 Mg Tablet) 12.5 mg PO BID [facility]; Protocol Last Admin: 02/24/22 08:16 Dose: 12.5 mg Divalproex Sodium (Divalproex Sodium 250 Mg Tablet.) 250 mg PO DAILY [facility] Last Admin: 02/24/22 08:16 Dose: 250 mg Divalproex Sodium (Divalproex Sodium 500 Mg Tablet.) 500 mg PO BEDTIME [facility] Last Admin: 02/23/22 20:53 Dose: 500 mg Donepezil HCl (Donepezil Hcl 10 Mg Tablet) 10 mg PO BEDTIME [facility] Last Admin: 02/23/22 20:53 Dose: 10 mg Guaifenesin/Dextromethorphan (Guaifenesin Dm 100/10/5 Ml 5 Ml Syrup) 10 ml PO Q4H PRN PRN Reason: cough Hydroxyzine HCl (Hydroxyzine Hcl 25 Mg Tablet) 25 mg PO Q6H PRN PRN Reason: Anxiety Last Admin: 02/05/22 22:29 Dose: 25 mg Levothyroxine Sodium (Levothyroxine Sodium 50 Mcg Tablet) 50 mcg PO DAILY@0600 [facility] Last Admin: 02/24/22 06:21 Dose: 50 mcg Magnesium Hydroxide (Milk Of Magnesia 30 Ml Oral.Susp) 30 ml PO DAILY PRN PRN Reason: Constipation Melatonin (Melatonin 3 Mg Tablet) 6 mg PO BEDTIME [facility] Last Admin: 02/23/22 20:53 Dose: 6 mg Melatonin (Melatonin 3 Mg Tablet) 3 mg PO BEDTIME PRN PRN Reason: insomnia Last Admin: 02/22/22 20:17 Dose: 3 mg Polyethylene Glycol (Polyethylene Glycol 3350 17 Gm Powd.Pack) 17 gm PO DAILY PRN PRN Reason: constipation Quetiapine Fumarate (Quetiapine Fumarate 50 Mg Tablet) 50 mg PO BEDTIME [facility] Last Admin: 02/23/22 20:53 Dose: 50 mg Senna/Docusate Sodium (Sennosides/Docusate Sodium Tablet) 1 tab PO DAILY PRN PRN Reason: constipation Sertraline HCl (Sertraline Hcl 50 Mg Tablet) 50 mg PO DAILY [facility] Last Admin: 02/24/22 08:16 Dose: 50 mg Trazodone HCl (Trazodone Hcl 50 Mg Tablet) 50 mg PO BEDTIME PRN PRN Reason: Insomnia Last Admin: 02/23/22 20:53 Dose: 50 mg Allergies Allergies Allergy/AdvReac Type Severity Reaction Status Date / Time No Known Allergies Allergy Verified 02/05/22 21:09 Assessment & Plan Assessment & Plan (1) Dementia: Status: Acute Code(s): F03.90 - Unspecified dementia, unspecified severity, without behavioral disturbance, psychotic disturbance, mood disturbance, and anxiety (2) Bipolar disorder: Status: Acute Code(s): F31.9 - Bipolar disorder, unspecified Plan the patient is an elderly female with a past history of bipolar disorder, dementia Alzheimer's type for the last 6 months, admitted for recent exacerbation of psychosis and violent behavior.? Very poor historian unable to provide more information.? Continue current treatment plan: 1. Gather collateral information.? 2. Continue with regular medications.? 3. Discharge to assisted [place] facility [facility] [place] [facility] when ready 4. Increased Aricept to 10 mg p.o. q.h.s. on 02/15 I spent ___10__ minutes with the patient and/or on the patient floor today, greater than?50% of which was spent counseling/coordinating care. Reason for contiued inpatient stay Substantial Risk for: inability to function and rapid decompensation
[2022-02-24 18:00] VITALS: BP 158/68; PULSE 70; RESP 18; TEMP 36.7; O2SAT 96
[2022-02-24] MEDS: Donepezil HCl 10 MG TABLET PO (20:21)
[2022-02-24] MEDS: Melatonin 3 MG TABLET PO (20:22)
[2022-02-24] MEDS: traZODone HCL 50 MG TABLET PO (20:22)
[2022-02-24] MEDS: Melatonin 3 MG TABLET 6 MG PO (20:22)
[2022-02-24] MEDS: QUEtiapine Fumarate 50 MG TABLET PO (20:22)
[2022-02-24] MEDS: Divalproex Sodium 500 MG TABLET.DR PO (20:22)
[2022-02-25] MEDS: Levothyroxine Sodium 50 MCG TABLET PO (06:23)
[2022-02-25 07:30] VITALS: BP 191/93; PULSE 70; RESP 16; TEMP 36.8; O2SAT 99
[2022-02-25] MEDS: carvediloL 12.5 MG TABLET PO ×2 (09:16→21:08)
[2022-02-25] MEDS: Divalproex Sodium 250 MG TABLET.DR PO (09:16)
[2022-02-25] MEDS: Sertraline HCL 50 MG TABLET PO (09:16)
[2022-02-25] MEDS: Atorvastatin Calcium 80 MG TABLET PO (09:16)
[2022-02-25] MEDS: amLODIPine Besylate 5 MG TABLET PO (09:17)
--- NOTE | 2022-02-25 16:25 | HO.PSYCHPN ---
Subjective Subjective Date of Service: 02/25/22 Reason For Visit: depression, anxiety, alzheimers Interim History: The nursing staff report that pt has had more trouble caring for self. needing more help with ADLs. She has been incontinent. Today she refused to walk on her own and did not stand or walk easily with 2 staff. Upon interview the patient denies new symptoms, pleasantly confused Medication Compliance: Yes Side effects from medications: No Attending Groups: No Review of Systems Review of Systems General: No fevers, malaise, unintentional weight loss HEENT: No blurred vision or diplopia Cardiovascular: No chest pain, palpitations, or leg edema Respiratory: No shortness of breath, wheezing, cough GI: No abdominal pain, nausea, vomiting, diarrhea, constipation, melena, hematochezia : No dysuria, hematuria, increased urinary frequency, urgency MSK: No myalgia Neuro: No headaches, weakness, paresthesias Skin: No rashes or lesions Yes all other systems are reviewed and are negative and Unobtainable due to mental status Mental Status Exam Mental Status Exam Narrative: Appearance: wearing hospital gown, fair hygiene in NAD Behavior:suspicious psychomotor: no agitation or retardation noted Speech: clear, some delayed in response, minimally spontaneous Thought process:some derailment Thought content:suspicious about being here Mood: okay Affect: constricted, guarded SI:denies HI:denies VH/AH: none Delusions:paranoid/suspiciousness Insight/judgment:impaired x 2. Memory/cog: alert, not oriented to situation, underlying cognitive impairments due to dementia. Patient Appearance: Well Grooomed Patient Orientation: Person and Situation Level of Consciousness: Appropriate Patient Behavior: Cooperative Mood Description: Calm Affect Description: Constricted Patient Cognition Impaired: Yes Ability to Follow Directions: Good Speech Pattern: Clear Memory Description: Intact Diagnostics Vital Signs (24Hr): Vital Signs - 24 hr 02/24/22 18:00 02/25/22 07:30 Temperature 98.1 F 98.2 F Pulse Rate 70 70 Respiratory Rate 18 16 Blood Pressure 158/68 H 191/93 H Pulse Oximetry 96 99 Oxygen Delivery Method Room Air Room Air BMI result Body Mass Index 29.6 Labs Results: 02/23/22 08:06 02/23/22 08:06 Imaging Radiology Impressions: ITS Impressions Head CT 02/06/22 15:04 IMPRESSION: No acute intracranial hemorrhage or territorial infarction. Progressed moderate generalized parenchymal volume loss and mild to moderate chronic white matter microangiopathy. 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 Medications Medications Current Medications Acetaminophen (Acetaminophen 325 Mg Tablet) 650 mg PO Q6H PRN PRN Reason: Headache/Pain Mild Scale (1-3) Al Hydroxide/Mg Hydroxide (Magnesium Hydrox/Alum Hydrox 30 Ml Oral.Susp) 30 ml PO Q6H PRN PRN Reason: Heartburn/Nausea Amlodipine Besylate (Amlodipine Besylate 5 Mg Tablet) 5 mg PO DAILY [facility]; Protocol Last Admin: 02/25/22 09:17 Dose: 5 mg Artificial Tears (Artificial Tears 15 Ml Drops) 1 drop EYE-BOTH Q4H PRN PRN Reason: dry eyes Atorvastatin Calcium (Atorvastatin Calcium 80 Mg Tablet) 80 mg PO DAILY [facility] Last Admin: 02/25/22 09:16 Dose: 80 mg Carvedilol (Carvedilol 12.5 Mg Tablet) 12.5 mg PO BID [facility]; Protocol Last Admin: 02/25/22 09:16 Dose: 12.5 mg Divalproex Sodium (Divalproex Sodium 250 Mg Tablet.) 250 mg PO DAILY [facility] Last Admin: 02/25/22 09:16 Dose: 250 mg Divalproex Sodium (Divalproex Sodium 500 Mg Tablet.) 500 mg PO BEDTIME [facility] Last Admin: 02/24/22 20:22 Dose: 500 mg Donepezil HCl (Donepezil Hcl 10 Mg Tablet) 10 mg PO BEDTIME [facility] Last Admin: 02/24/22 20:21 Dose: 10 mg Guaifenesin/Dextromethorphan (Guaifenesin Dm 100/10/5 Ml 5 Ml Syrup) 10 ml PO Q4H PRN PRN Reason: cough Hydroxyzine HCl (Hydroxyzine Hcl 25 Mg Tablet) 25 mg PO Q6H PRN PRN Reason: Anxiety Last Admin: 02/05/22 22:29 Dose: 25 mg Levothyroxine Sodium (Levothyroxine Sodium 50 Mcg Tablet) 50 mcg PO DAILY@0600 [facility] Last Admin: 02/25/22 06:23 Dose: 50 mcg Magnesium Hydroxide (Milk Of Magnesia 30 Ml Oral.Susp) 30 ml PO DAILY PRN PRN Reason: Constipation Melatonin (Melatonin 3 Mg Tablet) 6 mg PO BEDTIME [facility] Last Admin: 02/24/22 20:22 Dose: 6 mg Melatonin (Melatonin 3 Mg Tablet) 3 mg PO BEDTIME PRN PRN Reason: insomnia Last Admin: 02/24/22 20:22 Dose: 3 mg Polyethylene Glycol (Polyethylene Glycol 3350 17 Gm Powd.Pack) 17 gm PO DAILY PRN PRN Reason: constipation Quetiapine Fumarate (Quetiapine Fumarate 50 Mg Tablet) 50 mg PO BEDTIME [facility] Last Admin: 02/24/22 20:22 Dose: 50 mg Senna/Docusate Sodium (Sennosides/Docusate Sodium Tablet) 1 tab PO DAILY PRN PRN Reason: constipation Sertraline HCl (Sertraline Hcl 50 Mg Tablet) 50 mg PO DAILY [facility] Last Admin: 02/25/22 09:16 Dose: 50 mg Trazodone HCl (Trazodone Hcl 50 Mg Tablet) 50 mg PO BEDTIME PRN PRN Reason: Insomnia Last Admin: 02/24/22 20:22 Dose: 50 mg Allergies Allergies Allergy/AdvReac Type Severity Reaction Status Date / Time No Known Allergies Allergy Verified 02/05/22 21:09 Assessment & Plan Assessment & Plan (1) Dementia: Status: Acute Code(s): F03.90 - Unspecified dementia, unspecified severity, without behavioral disturbance, psychotic disturbance, mood disturbance, and anxiety (2) Bipolar disorder: Status: Acute Code(s): F31.9 - Bipolar disorder, unspecified Plan the patient is an elderly female with a past history of bipolar disorder, dementia Alzheimer's type for the last 6 months, admitted for recent exacerbation of psychosis and violent behavior.? Very poor historian unable to provide more information.? Continue current treatment plan: 1. PT consult ordered 2.. Gather collateral information.? 3. 2. Continue with regular medications.? 4. Discharge to assisted living facility Or retirement facility when ready 5. Increased Aricept to 10 mg p.o. q.h.s. on 02/15 6. Monitor BP I spent ___10___ minutes with the patient and/or on the patient floor today, greater than?50% of which was spent counseling/coordinating care. Reason for contiued inpatient stay Substantial Risk for: inability to function and rapid decompensation
[2022-02-25 19:30] VITALS: BP 173/85; PULSE 78; RESP 18; TEMP 36.6; O2SAT 94
[2022-02-25] MEDS: Melatonin 3 MG TABLET 6 MG PO (21:08)
[2022-02-25] MEDS: Donepezil HCl 10 MG TABLET PO (21:08)
[2022-02-25] MEDS: Divalproex Sodium 500 MG TABLET.DR PO (21:08)
[2022-02-25] MEDS: QUEtiapine Fumarate 50 MG TABLET PO (21:08)
[2022-02-25] MEDS: traZODone HCL 50 MG TABLET PO (21:09)
[2022-02-25] MEDS: hydrOXYzine HCL 25 MG TABLET PO (21:09)
[2022-02-26] MEDS: Levothyroxine Sodium 50 MCG TABLET PO (05:56)
[2022-02-26 06:00] VITALS: BP 197/84; PULSE 69; RESP 18; TEMP 36.3; O2SAT 91
--- NOTE | 2022-02-26 06:35 | PC.NURSE ---
PT HAS REDNESS IN CREASES OF PERINEAL AREA AND UNDER BOTH BREASTS WHICH SHE REPORTS ARE CAUSING HER DISCOMFORT. MILD SKIN BREAKDOWN PRESENT.
[2022-02-26] MEDS: amLODIPine Besylate 5 MG TABLET PO (09:32)
[2022-02-26] MEDS: Atorvastatin Calcium 80 MG TABLET PO (09:32)
[2022-02-26] MEDS: carvediloL 12.5 MG TABLET PO ×2 (09:32→20:27)
[2022-02-26] MEDS: Sertraline HCL 50 MG TABLET PO (09:33)
[2022-02-26] MEDS: Divalproex Sodium 250 MG TABLET.DR PO (09:33)
[2022-02-26] MEDS: Acetaminophen 325 MG TABLET 650 MG PO (09:54)
--- NOTE | 2022-02-26 11:39 | HO.PSYCHPN ---
Subjective Subjective Date of Service: 02/26/22 Reason For Visit: depression, anxiety, alzheimers Subjective Notes: Conditional Voluntary Interim History: The nursing staff reported the patient has refused her ADL less and she had been irritable, she also had been showing derogatory statements against peers. A certain point, the staff reported nonsensical speech. She had a change in mental status so we ordered a CT scan today and it came back normal. We will order a UA to see if there is a a medical explanation of the change of mental status. On interview the patient reports that she is doing fine, she looks confused as usual. Mental Status Exam Mental Status Exam Patient Appearance: Appropriate Patient Orientation: Person Level of Consciousness: Appropriate Patient Behavior: Cooperative Mood Description: Withdrawn Affect Description: Constricted Patient Cognition Impaired: Yes Ability to Follow Directions: Good Speech Pattern: Clear Hallucinations: None Delusions: Not Present Thought Process: Distracted Thought Content: positive for [place] Judgement: Fair Diagnostics Vital Signs (24Hr): Vital Signs - 24 hr 02/25/22 19:30 02/26/22 06:00 Temperature 97.9 F 97.3 F Pulse Rate 78 69 Respiratory Rate 18 18 Blood Pressure 173/85 H 197/84 H Pulse Oximetry 94 91 L Oxygen Delivery Method Room Air Room Air BMI result Body Mass Index 29.6 Labs Results: 02/23/22 08:06 02/23/22 08:06 Imaging Radiology Impressions: ITS Impressions Head CT 02/06/22 15:04 IMPRESSION: No acute intracranial hemorrhage or territorial infarction. Progressed moderate generalized parenchymal volume loss and mild to moderate chronic white matter microangiopathy. 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 Head CT 02/26/22 10:52 IMPRESSION: No acute intracranial hemorrhage or territorial infarction. Stable diffuse parenchymal volume loss and [id number] chronic white matter microangiopathy. Incompletely visualized moderate left maxillary sinus disease with chronic sclerotic wall thickening. Medications Medications Current Medications Acetaminophen (Acetaminophen 325 Mg Tablet) 650 mg PO Q6H PRN PRN Reason: Headache/Pain Mild Scale (1-3) Last Admin: 02/26/22 09:54 Dose: 650 mg Al Hydroxide/Mg Hydroxide (Magnesium Hydrox/Alum Hydrox 30 Ml Oral.Susp) 30 ml PO Q6H PRN PRN Reason: Heartburn/Nausea Amlodipine Besylate (Amlodipine Besylate 5 Mg Tablet) 5 mg PO DAILY [facility]; Protocol Last Admin: 02/26/22 09:32 Dose: 5 mg Artificial Tears (Artificial Tears 15 Ml Drops) 1 drop EYE-BOTH Q4H PRN PRN Reason: dry eyes Atorvastatin Calcium (Atorvastatin Calcium 80 Mg Tablet) 80 mg PO DAILY [facility] Last Admin: 02/26/22 09:32 Dose: 80 mg Carvedilol (Carvedilol 12.5 Mg Tablet) 12.5 mg PO BID [facility]; Protocol Last Admin: 02/26/22 09:32 Dose: 12.5 mg Divalproex Sodium (Divalproex Sodium 250 Mg Tablet.) 250 mg PO DAILY [facility] Last Admin: 02/26/22 09:33 Dose: 250 mg Divalproex Sodium (Divalproex Sodium 500 Mg Tablet.) 500 mg PO BEDTIME [facility] Last Admin: 02/25/22 21:08 Dose: 500 mg Donepezil HCl (Donepezil Hcl 10 Mg Tablet) 10 mg PO BEDTIME [facility] Last Admin: 02/25/22 21:08 Dose: 10 mg Guaifenesin/Dextromethorphan (Guaifenesin Dm 100/10/5 Ml 5 Ml Syrup) 10 ml PO Q4H PRN PRN Reason: cough Hydroxyzine HCl (Hydroxyzine Hcl 25 Mg Tablet) 25 mg PO Q6H PRN PRN Reason: Anxiety Last Admin: 02/25/22 21:09 Dose: 25 mg Levothyroxine Sodium (Levothyroxine Sodium 50 Mcg Tablet) 50 mcg PO DAILY@0600 [facility] Last Admin: 02/26/22 05:56 Dose: 50 mcg Magnesium Hydroxide (Milk Of Magnesia 30 Ml Oral.Susp) 30 ml PO DAILY PRN PRN Reason: Constipation Melatonin (Melatonin 3 Mg Tablet) 6 mg PO BEDTIME [facility] Last Admin: 02/25/22 21:08 Dose: 6 mg Melatonin (Melatonin 3 Mg Tablet) 3 mg PO BEDTIME PRN PRN Reason: insomnia Last Admin: 02/24/22 20:22 Dose: 3 mg Polyethylene Glycol (Polyethylene Glycol 3350 17 Gm Powd.Pack) 17 gm PO DAILY PRN PRN Reason: constipation Quetiapine Fumarate (Quetiapine Fumarate 50 Mg Tablet) 50 mg PO BEDTIME [facility] Last Admin: 02/25/22 21:08 Dose: 50 mg Senna/Docusate Sodium (Sennosides/Docusate Sodium Tablet) 1 tab PO DAILY PRN PRN Reason: constipation Sertraline HCl (Sertraline Hcl 50 Mg Tablet) 50 mg PO DAILY [facility] Last Admin: 02/26/22 09:33 Dose: 50 mg Trazodone HCl (Trazodone Hcl 50 Mg Tablet) 50 mg PO BEDTIME PRN PRN Reason: Insomnia Last Admin: 02/25/22 21:09 Dose: 50 mg Allergies Allergies Allergy/AdvReac Type Severity Reaction Status Date / Time No Known Allergies Allergy Verified 02/05/22 21:09 Assessment & Plan Assessment & Plan (1) Dementia: Status: Acute Code(s): F03.90 - Unspecified dementia, unspecified severity, without behavioral disturbance, psychotic disturbance, mood disturbance, and anxiety (2) Bipolar disorder: Status: Acute Code(s): F31.9 - Bipolar disorder, unspecified Plan the patient is an elderly female with a past history of bipolar disorder, dementia Alzheimer's type for the last 6 months, admitted for recent exacerbation of psychosis and violent behavior.? Very poor historian unable to provide more information.? Continue current treatment plan: 1. PT consult ordered 2.. Gather collateral information.? 3. 2. Continue with regular medications.? 4. Discharge to assisted living facility Or care home facility when ready 5. Increased Aricept to 10 mg p.o. q.h.s. on 02/15 6. Monitor BP 7. CT-scan head and U/A today. I spent ___20___ minutes with the patient and/or on the patient floor today, greater than?50% of which was spent counseling/coordinating care. Reason for contiued inpatient stay Substantial Risk for: inability to function, rapid decompensation and med/psych decompensation
[2022-02-26 20:00] VITALS: BP 159/87; PULSE 70; TEMP 36.8; O2SAT 99
[2022-02-26] MEDS: QUEtiapine Fumarate 50 MG TABLET PO (20:27)
[2022-02-26] MEDS: Melatonin 3 MG TABLET 6 MG PO (20:27)
[2022-02-26] MEDS: Divalproex Sodium 500 MG TABLET.DR PO (20:27)
[2022-02-26] MEDS: Donepezil HCl 10 MG TABLET PO (20:27)
[2022-02-27 06:00] VITALS: BP 183/86; PULSE 72; RESP 16; TEMP 36.2; O2SAT 96
[2022-02-27 06:13] LABS: Appearance Urine Clear; Color Urine Yellow; Glucose Urine UA Negative (Negative); Leukocyte Esterase Urine Trace (Negative); Nitrite Urine Negative (Negative); PH 7.5 (5.0-9.0); UMIC TRIGGER UACC YES; Urine Blood Negative (Negative); Urine Ketones Negative (Negative); Urine Protein Negative (Neg-Trace)
[2022-02-27 06:18] LABS: Bacteria Urine None Seen (None Seen); Hyaline Casts Urine 0-2 /LPF (0-2); RBC Urine 0-2 /HPF (0-2); Squamous Epithelial Cell Urine 0-2 /HPF (0-2); WBC Urine 0-5 /HPF (0-5)
[2022-02-27] MEDS: Levothyroxine Sodium 50 MCG TABLET PO (06:28)
[2022-02-27] MEDS: Nystatin Powder 15 GM BOTTLE 1 APPL TOPICAL ×2 (10:55→20:00)
[2022-02-27] MEDS: Atorvastatin Calcium 80 MG TABLET PO (10:55)
[2022-02-27] MEDS: Sertraline HCL 50 MG TABLET PO (10:55)
[2022-02-27] MEDS: carvediloL 12.5 MG TABLET PO ×2 (10:55→20:42)
[2022-02-27] MEDS: Divalproex Sodium 250 MG TABLET.DR PO (10:55)
[2022-02-27] MEDS: amLODIPine Besylate 5 MG TABLET PO (10:55)
--- NOTE | 2022-02-27 15:33 | P.CNNE_ITS ---
History of Present Illness Data of Consult Service Date: 02/27/22 Primary Care Provider: Unknown Physician HPI Reason for consult: In the left side and worsening of mental changes and functional ability 66-year-old female with history of insulin-dependent type 2 diabetes last A1c 5.6%, hypertension, MATTIE on CPAP, CKD stage 3, hypothyroidism, Alzheimer's diagnosed 6 months earlier, and bipolar disorder admitted with psychosis an dinability to care for herself and ADL.While in the hospital she has been noted in the last 2 or 3 days to gradually declined making it harder for for her to get around with a walker leaning to the left hand acting more confused Review of Systems Review of Systems: General: No fevers, malaise, unintentional weight loss HEENT: No blurred vision or diplopia Cardiovascular: No chest pain, palpitations, or leg edema Respiratory: No shortness of breath, wheezing, cough GI: No abdominal pain, nausea, vomiting, diarrhea, constipation, melena, hematochezia : No dysuria, hematuria, increased urinary frequency, urgency MSK: No myalgia Neuro: No headaches, weakness, paresthesias Skin: No rashes or lesions Yes all other systems are reviewed and are negative and Unobtainable due to mental status PMFSH Past Medical History Medical History (Updated 02/06/22 @ 15:48 by KHOA Hui) Bipolar disorder CKD stage 3 due to type 2 diabetes mellitus Dementia HLD (hyperlipidemia) Hypothyroidism MATTIE (obstructive sleep apnea) Type 2 diabetes Family History Family History Father Alcohol dependence Mother Smoker Daughter No problems noted. Son No problems noted. Social History Social History Household Members: Family Housing: House Do you presently have visiting nurse or other home services: No Unable to assess alcohol history related to: Unknown Patient Tobacco Use Status: Former Tobacco user Quit Date: Years ago Tobacco use type: Cigarette Smoked in Last 30 Days: No e-Cigarette/Vaping Use: Never Used Patient Interested in Nicotine Replacement: No Use of substances other than those prescribed or required for medical reasons: Unknown Currently Displaying Signs/Symptoms of Drug Intoxication Withdrawal: No Advance Directives: No Advance Directives Information Provided: No Do you have thoughts of harming others: None Do you have a plan to hurt others: No Plan Recently lost weight without trying: Unsure Patient : No service: No Sexual orientation: Straight/Heterosexual Meds Allergies Allergy/AdvReac Type Severity Reaction Status Date / Time No Known Allergies Allergy Verified 02/05/22 21:09 Active Medications: Current Medications Acetaminophen (Acetaminophen 325 Mg Tablet) 650 mg PO Q6H PRN PRN Reason: Headache/Pain Mild Scale (1-3) Last Admin: 02/26/22 09:54 Dose: 650 mg Al Hydroxide/Mg Hydroxide (Magnesium Hydrox/Alum Hydrox 30 Ml Oral.Susp) 30 ml PO Q6H PRN PRN Reason: Heartburn/Nausea Amlodipine Besylate (Amlodipine Besylate 5 Mg Tablet) 5 mg PO DAILY [facility]; Protocol Last Admin: 02/27/22 10:55 Dose: 5 mg Artificial Tears (Artificial Tears 15 Ml Drops) 1 drop EYE-BOTH Q4H PRN PRN Reason: dry eyes Atorvastatin Calcium (Atorvastatin Calcium 80 Mg Tablet) 80 mg PO DAILY [facility] Last Admin: 02/27/22 10:55 Dose: 80 mg Carvedilol (Carvedilol 12.5 Mg Tablet) 12.5 mg PO BID [facility]; Protocol Last Admin: 02/27/22 10:55 Dose: 12.5 mg Divalproex Sodium (Divalproex Sodium 250 Mg Tablet.) 250 mg PO DAILY [facility] Last Admin: 02/27/22 10:55 Dose: 250 mg Divalproex Sodium (Divalproex Sodium 500 Mg Tablet.) 500 mg PO BEDTIME [facility] Last Admin: 02/26/22 20:27 Dose: 500 mg Donepezil HCl (Donepezil Hcl 10 Mg Tablet) 10 mg PO BEDTIME [facility] Last Admin: 02/26/22 20:27 Dose: 10 mg Guaifenesin/Dextromethorphan (Guaifenesin Dm 100/10/5 Ml 5 Ml Syrup) 10 ml PO Q4H PRN PRN Reason: cough Hydroxyzine HCl (Hydroxyzine Hcl 25 Mg Tablet) 25 mg PO Q6H PRN PRN Reason: Anxiety Last Admin: 02/25/22 21:09 Dose: 25 mg Levothyroxine Sodium (Levothyroxine Sodium 50 Mcg Tablet) 50 mcg PO DAILY@0600 [facility] Last Admin: 02/27/22 06:28 Dose: 50 mcg Magnesium Hydroxide (Milk Of Magnesia 30 Ml Oral.Susp) 30 ml PO DAILY PRN PRN Reason: Constipation Melatonin (Melatonin 3 Mg Tablet) 6 mg PO BEDTIME [facility] Last Admin: 02/26/22 20:27 Dose: 6 mg Melatonin (Melatonin 3 Mg Tablet) 3 mg PO BEDTIME PRN PRN Reason: insomnia Last Admin: 02/24/22 20:22 Dose: 3 mg Nystatin (Nystatin Powder 15 Gm Bottle) 1 appl TOPICAL BID [facility]; Protocol Last Admin: 02/27/22 11:05 Dose: Not Given Polyethylene Glycol (Polyethylene Glycol 3350 17 Gm Powd.Pack) 17 gm PO DAILY PRN PRN Reason: constipation Quetiapine Fumarate (Quetiapine Fumarate 50 Mg Tablet) 50 mg PO BEDTIME [facility] Last Admin: 02/26/22 20:27 Dose: 50 mg Senna/Docusate Sodium (Sennosides/Docusate Sodium Tablet) 1 tab PO DAILY PRN PRN Reason: constipation Sertraline HCl (Sertraline Hcl 50 Mg Tablet) 50 mg PO DAILY [facility] Last Admin: 02/27/22 10:55 Dose: 50 mg Trazodone HCl (Trazodone Hcl 50 Mg Tablet) 50 mg PO BEDTIME PRN PRN Reason: Insomnia Last Admin: 02/25/22 21:09 Dose: 50 mg Physical Exam Vital Signs: Vital Signs: Last Vital Signs Temp 97.1 F 02/27/22 06:00 Pulse 72 02/27/22 06:00 Resp 16 02/27/22 06:00 BP 183/86 H 02/27/22 06:00 Pulse Ox 96 02/27/22 06:00 O2 Del Method 02/27/22 06:00 BMI result Body Mass Index 29.6 Neuro: Other: Flat affect and limited cooperation. Walks independently with a walker with some listing to the left side nonffocal exam Results Labs CBC & Chem 7: 02/23/22 08:06 02/23/22 08:06 Labs: Urine 02/27/22 Range/Units 05:40 Urine Color Yellow Urine Appearance Clear Urine pH 7.5 (5.0-9.0) Ur Specific [place] 1.010 (1.005-1.025) Urine Protein Negative (Neg-Trace) mg/dL Urine Glucose (UA) Negative (Negative) mg/dL Assessment and Plan (1) Dementia: Status: Acute Staff reports alteration in mental status in the last 2 days with decreased ability to function and listing to the left side. Rule out right parietal infarct. Recommendation: MRI of the brain without contrast. Waking EEG. (2) Bipolar disorder: Status: Acute Plan the patient is an elderly female with a past history of bipolar disorder, dementia Alzheimer's type for the last 6 months, admitted for recent exacerbation of psychosis and violent behavior.? Very poor historian unable to provide more information.? Continue current treatment plan: 1. PT consult ordered 2.. Gather collateral information.? 3. 2. Continue with regular medications.? 4. Discharge to assisted living facility Or correction facility when ready 5. Increased Aricept to 10 mg p.o. q.h.s. on 02/15 6. Monitor BP 7. CT-scan head and U/A today. Procedures Date of Service Date of Service: 02/27/22
--- NOTE | 2022-02-27 16:16 | HO.PSYCHPN ---
Subjective Subjective Date of Service: 02/27/22 Reason For Visit: depression, anxiety, alzheimers Subjective Notes: Conditional Voluntary Interim History: The nursing staff reported that she complained of back pain. The urinalysis and a CT scan came back negative. The patient had been on her bed most of the time. The staff also reported right-sided neglect and I called Neurology and apparently there was no evidence of stroke or any vascular problem. On interview the patient reported that she is feeling tired Mental Status Exam Mental Status Exam Patient Appearance: Well Grooomed Patient Orientation: Person and Situation Level of Consciousness: Awake Patient Behavior: Guarded Mood Description: Withdrawn Affect Description: Constricted Patient Cognition Impaired: Yes Ability to Follow Directions: Good Speech Pattern: Clear Hallucinations: None Delusions: Not Present Thought Process: Distracted Thought Content: positive for [place], positive for Circumstantial and positive for Poverty of Content Judgement: Fair Diagnostics Vital Signs (24Hr): Vital Signs - 24 hr 02/26/22 20:00 02/27/22 06:00 Temperature 98.2 F 97.1 F Pulse Rate 70 72 Respiratory Rate 16 Blood Pressure 159/87 H 183/86 H Pulse Oximetry 99 96 Oxygen Delivery Method Room Air BMI result Body Mass Index 29.6 Labs Results: 02/23/22 08:06 02/23/22 08:06 Labs: Laboratory Results - last 48 hr 02/27/22 05:40 Urine Color Yellow Urine Appearance Clear Urine pH 7.5 Ur Specific [place] 1.010 Urine Protein Negative Urine Glucose (UA) Negative Urine Ketones Negative Urine Blood Negative Urine Nitrite Negative Ur Leukocyte Esterase Trace H Urine RBC 0-2 Urine WBC 0-5 Ur Squamous Epith Cells 0-2 Urine Bacteria None Seen Hyaline Casts 0-2 Imaging Radiology Impressions: ITS Impressions Head CT 02/06/22 15:04 IMPRESSION: No acute intracranial hemorrhage or territorial infarction. Progressed moderate generalized parenchymal volume loss and mild to moderate chronic white matter microangiopathy. 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 Head CT 02/26/22 10:52 IMPRESSION: No acute intracranial hemorrhage or territorial infarction. Stable diffuse parenchymal volume loss and [id number] chronic white matter microangiopathy. Incompletely visualized moderate left maxillary sinus disease with chronic sclerotic wall thickening. Medications Medications Current Medications Acetaminophen (Acetaminophen 325 Mg Tablet) 650 mg PO Q6H PRN PRN Reason: Headache/Pain Mild Scale (1-3) Last Admin: 02/26/22 09:54 Dose: 650 mg Al Hydroxide/Mg Hydroxide (Magnesium Hydrox/Alum Hydrox 30 Ml Oral.Susp) 30 ml PO Q6H PRN PRN Reason: Heartburn/Nausea Amlodipine Besylate (Amlodipine Besylate 5 Mg Tablet) 5 mg PO DAILY [facility]; Protocol Last Admin: 02/27/22 10:55 Dose: 5 mg Artificial Tears (Artificial Tears 15 Ml Drops) 1 drop EYE-BOTH Q4H PRN PRN Reason: dry eyes Atorvastatin Calcium (Atorvastatin Calcium 80 Mg Tablet) 80 mg PO DAILY [facility] Last Admin: 02/27/22 10:55 Dose: 80 mg Carvedilol (Carvedilol 12.5 Mg Tablet) 12.5 mg PO BID [facility]; Protocol Last Admin: 02/27/22 10:55 Dose: 12.5 mg Divalproex Sodium (Divalproex Sodium 250 Mg Tablet.) 250 mg PO DAILY [facility] Last Admin: 02/27/22 10:55 Dose: 250 mg Divalproex Sodium (Divalproex Sodium 500 Mg Tablet.) 500 mg PO BEDTIME [facility] Last Admin: 02/26/22 20:27 Dose: 500 mg Donepezil HCl (Donepezil Hcl 10 Mg Tablet) 10 mg PO BEDTIME [facility] Last Admin: 02/26/22 20:27 Dose: 10 mg Guaifenesin/Dextromethorphan (Guaifenesin Dm 100/10/5 Ml 5 Ml Syrup) 10 ml PO Q4H PRN PRN Reason: cough Hydroxyzine HCl (Hydroxyzine Hcl 25 Mg Tablet) 25 mg PO Q6H PRN PRN Reason: Anxiety Last Admin: 02/25/22 21:09 Dose: 25 mg Levothyroxine Sodium (Levothyroxine Sodium 50 Mcg Tablet) 50 mcg PO DAILY@0600 [facility] Last Admin: 02/27/22 06:28 Dose: 50 mcg Magnesium Hydroxide (Milk Of Magnesia 30 Ml Oral.Susp) 30 ml PO DAILY PRN PRN Reason: Constipation Melatonin (Melatonin 3 Mg Tablet) 6 mg PO BEDTIME [facility] Last Admin: 02/26/22 20:27 Dose: 6 mg Melatonin (Melatonin 3 Mg Tablet) 3 mg PO BEDTIME PRN PRN Reason: insomnia Last Admin: 02/24/22 20:22 Dose: 3 mg Nystatin (Nystatin Powder 15 Gm Bottle) 1 appl TOPICAL BID [facility]; Protocol Last Admin: 02/27/22 11:05 Dose: Not Given Polyethylene Glycol (Polyethylene Glycol 3350 17 Gm Powd.Pack) 17 gm PO DAILY PRN PRN Reason: constipation Quetiapine Fumarate (Quetiapine Fumarate 50 Mg Tablet) 50 mg PO BEDTIME [facility] Last Admin: 02/26/22 20:27 Dose: 50 mg Senna/Docusate Sodium (Sennosides/Docusate Sodium Tablet) 1 tab PO DAILY PRN PRN Reason: constipation Sertraline HCl (Sertraline Hcl 50 Mg Tablet) 50 mg PO DAILY [facility] Last Admin: 02/27/22 10:55 Dose: 50 mg Trazodone HCl (Trazodone Hcl 50 Mg Tablet) 50 mg PO BEDTIME PRN PRN Reason: Insomnia Last Admin: 02/25/22 21:09 Dose: 50 mg Allergies Allergies Allergy/AdvReac Type Severity Reaction Status Date / Time No Known Allergies Allergy Verified 02/05/22 21:09 Assessment & Plan Assessment & Plan (1) Dementia: Status: Acute Code(s): F03.90 - Unspecified dementia, unspecified severity, without behavioral disturbance, psychotic disturbance, mood disturbance, and anxiety (2) Bipolar disorder: Status: Acute Code(s): F31.9 - Bipolar disorder, unspecified Plan the patient is an elderly female with a past history of bipolar disorder, dementia Alzheimer's type for the last 6 months, admitted for recent exacerbation of psychosis and violent behavior.? Very poor historian unable to provide more information.? Continue current treatment plan: 1. PT consult ordered 2.. Gather collateral information.? 3. Continue with regular medications.? 4. Discharge to assisted living facility Or half-way facility when ready 5. Increased Aricept to 10 mg p.o. q.h.s. on 02/15 6. Monitor BP 7. CT-scan head and U/A today. Eight blood work for tomorrow I spent minutes with the patient and/or on the patient floor today, greater than?50% of which was spent counseling/coordinating care. Reason for contiued inpatient stay Substantial Risk for: inability to function, rapid decompensation and med/psych decompensation
[2022-02-27 18:00] VITALS: BP 156/80; PULSE 68; RESP 18; TEMP 36.3; O2SAT 95
[2022-02-27] MEDS: hydrOXYzine HCL 25 MG TABLET PO (20:41)
[2022-02-27] MEDS: Melatonin 3 MG TABLET 6 MG PO (20:41)
[2022-02-27] MEDS: Melatonin 3 MG TABLET PO (20:41)
[2022-02-27] MEDS: Donepezil HCl 10 MG TABLET PO (20:41)
[2022-02-27] MEDS: QUEtiapine Fumarate 50 MG TABLET PO (20:42)
[2022-02-27] MEDS: Divalproex Sodium 500 MG TABLET.DR PO (20:42)
[2022-02-27] MEDS: traZODone HCL 50 MG TABLET PO (20:42)
[2022-02-28] MEDS: Levothyroxine Sodium 50 MCG TABLET PO (06:11)
[2022-02-28 08:00] VITALS: BP 219/97; PULSE 68; RESP 15; TEMP 36.1; O2SAT 93
[2022-02-28 08:20] VITALS: BP 182/87
[2022-02-28 08:20] LABS: Basophils Percent Auto 0.5 % (0-2); Eosinophils Absolute Auto 0.1 X10*3/uL (0.0-0.4); Eosinophils Percent Auto 1.8 % (0-4); Hematocrit 34.2 % (37.0-47.0); Hemoglobin 11.2 g/dl (12.0-16.0); Imm Gran Abs Auto 0.02 X10*3/uL (0.00-0.03); Imm Gran Pct Auto 0.5 % (0.0-0.4); Lymphocytes Percent Auto 23.2 % (20-40); MANUAL DIFF FLAG SCAN; Mean Corpuscular HGB Conc 32.7 g/dl (31.0-35.0); Mean Corpuscular Hemoglobin 30.9 pg (27.0-33.0); Mean Corpuscular Volume 94.5 fL (80.0-98.0); Mean Platelet Volume 9.3 fL (9.4-12.3); Monocytes Absolute Auto 0.9 X10*3/uL (0.1-1.2); Monocytes Percent Auto 20.5 % (2-11); Neutrophils Absolute Auto 2.4 x10*3/uL (2.0-8.3); Neutrophils Percent Auto 53.5 % (45-73); Platelet Count 127 X10*3/uL (160-400); Red Blood Count 3.62 X10*6/uL (4.20-5.50); Red Cell Distribution Width 13.8 % (11.0-16.0); SCAN SMEAR FLAG 1; White Blood Count 4.4 X10*3/uL (4.8-10.8)
[2022-02-28 08:33] LABS: Estimated Average Glucose 114 mg/dL; Hemoglobin A1c % 5.6 %
[2022-02-28 08:40] LABS: SLIDE REVIEW VERIFIED
[2022-02-28] MEDS: Sertraline HCL 50 MG TABLET PO (08:40)
[2022-02-28] MEDS: Atorvastatin Calcium 80 MG TABLET PO (08:40)
[2022-02-28] MEDS: Divalproex Sodium 250 MG TABLET.DR PO (08:41)
[2022-02-28] MEDS: carvediloL 12.5 MG TABLET PO ×2 (08:41→21:31)
[2022-02-28] MEDS: amLODIPine Besylate 5 MG TABLET PO (08:41)
[2022-02-28] MEDS: cloNIDine HCL 0.1 MG TABLET PO (08:42)
[2022-02-28] MEDS: Nystatin Powder 15 GM BOTTLE 1 APPL TOPICAL ×2 (08:58→21:36)
[2022-02-28 09:16] LABS: Alanine Aminotransferase 15 U/L (0-31); Albumin Level 3.5 g/dL (3.5-5.0); Alkaline Phosphatase 52 U/L (39-117); Anion Gap 14 (12-20); Aspartate Amino Transferase 26 U/L (5-31); Bilirubin Direct 0.2 mg/dL (0.0-0.5); Bilirubin Total 0.3 mg/dL (0.0-1.0); Blood Urea Nitrogen 25 mg/dL (9-16); Calcium 8.8 mg/dL (8.4-10.2); Carbon Dioxide 29 mmol/L (22-29); Chloride 103 mmol/L (96-108); Cholesterol 186 mg/dL; Creatinine Clr Calc Pharmacy 55.7; Estimated Glomerular Filt Rate > 60; Glucose Random 104 mg/dL (60-115); HDL Cholesterol 47 mg/dL; LDL Cholesterol Calculated 114 mg/dl; Potassium 3.4 mmol/L (3.3-5.1); Sodium 143 mmol/L (135-145); Triglycerides 125 mg/dL
[2022-02-28 09:19] LABS: Valproate 68.1 mcg/mL (50.0-100.0)
[2022-02-28 09:36] LABS: Thyroid Stimulating Hormone 1.71 uIU/mL (0.32-4.0)
[2022-02-28 10:35] VITALS: BP 98/54; PULSE 60
[2022-02-28 11:15] VITALS: BP 90/51; PULSE 54
[2022-02-28 13:00] VITALS: BP 130/63; PULSE 60
--- NOTE | 2022-02-28 13:49 | P.PNPSI_ITS ---
Subjective Subjective Date of Service: 02/28/22 Reason For Visit: depression, anxiety, alzheimers Subjective Notes: Conditional Voluntary Interim History: The nursing staff reported the patient had been in her room most of the time isolative with a left-sided neglect. The neurologist saw him yesterday and could not find a major changes in her physical exam he suggested an MRI and EEG. 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 EEG to be done The nursing staff reported that today in the morning her blood pressure was high but then had headaches and I gave her 0.1 mg of clonidine. On interview, the patient denies new symptoms she looks pleasantly confused. Mental Status Exam Mental Status Exam Patient Appearance: Well Grooomed Patient Orientation: Person and Situation Level of Consciousness: Appropriate Patient Behavior: Cooperative and Passive Mood Description: Withdrawn Affect Description: Constricted Patient Cognition Impaired: Yes Ability to Follow Directions: Good Speech Pattern: Clear Hallucinations: None Delusions: Not Present Thought Process: Distracted Thought Content: positive for [place], positive for Obsessional Thoughts and positive for Poverty of Content Judgement: Fair Diagnostics Vital Signs (24Hr): Vital Signs - 24 hr 02/27/22 18:00 02/28/22 07:45 02/28/22 08:15 Temperature 97.3 F 97.0 F Pulse Rate 68 68 Respiratory Rate 18 15 Blood Pressure 156/80 H 219/97 H 182/87 H Pulse Oximetry 95 93 Oxygen Delivery Method Room Air Room Air BMI result Body Mass Index 29.6 Labs Results: 02/28/22 07:59 02/28/22 07:59 Labs: Laboratory Results - last 48 hr 02/27/22 02/28/22 02/28/22 05:40 07:59 07:59 WBC 4.4 L RBC 3.62 L Hgb 11.2 L Hct 34.2 L MCV 94.5 MCH 30.9 MCHC 32.7 RDW 13.8 Plt Count 127 L MPV 9.3 L Immature Gran % (Auto) 0.5 H Neut % (Auto) 53.5 Lymph % (Auto) 23.2 [place] % (Auto) 20.5 H Eos % (Auto) 1.8 Baso % (Auto) 0.5 Lymph # (Auto) 1.0 L [place] # (Auto) 0.9 Eos # (Auto) 0.1 Baso # (Auto) 0.0 Abs Immat Gran (auto) 0.02 Absolute Neuts (auto) 2.4 Absolute Nucleated RBC 0.000 Nucleated RBC % (auto) 0.0 Smear Tech's Comments VERIFIED Sodium 143 Potassium 3.4 Chloride 103 Carbon Dioxide 29 Anion Gap 14 BUN 25 H Creatinine 0.92 Estim Creat Clear Calc 55.7 Estimated GFR > 60 Random Glucose 104 Estimat Average Glucose Hemoglobin A1c % Calcium 8.8 Total Bilirubin 0.3 Direct Bilirubin 0.2 AST 26 D ALT 15 Alkaline Phosphatase 52 Total Protein 6.0 L Albumin 3.5 Triglycerides 125 Cholesterol 186 LDL Cholesterol, Calc 114 HDL Cholesterol 47 D TSH 1.71 Urine Color Yellow Urine Appearance Clear Urine pH 7.5 Ur Specific [place] 1.010 Urine Protein Negative Urine Glucose (UA) Negative Urine Ketones Negative Urine Blood Negative Urine Nitrite Negative Ur Leukocyte Esterase Trace H Urine RBC 0-2 Urine WBC 0-5 Ur Squamous Epith Cells 0-2 Urine Bacteria None Seen Hyaline Casts 0-2 Valproic Acid 68.1 02/28/22 07:59 WBC RBC Hgb Hct MCV MCH MCHC RDW Plt Count MPV Immature Gran % (Auto) Neut % (Auto) Lymph % (Auto) [place] % (Auto) Eos % (Auto) Baso % (Auto) Lymph # (Auto) [place] # (Auto) Eos # (Auto) Baso # (Auto) Abs Immat Gran (auto) Absolute Neuts (auto) Absolute Nucleated RBC Nucleated RBC % (auto) Smear Tech's Comments Sodium Potassium Chloride Carbon Dioxide Anion Gap BUN Creatinine Estim Creat Clear Calc Estimated GFR Random Glucose Estimat Average Glucose 114 Hemoglobin A1c % 5.6 Calcium Total Bilirubin Direct Bilirubin AST ALT Alkaline Phosphatase Total Protein Albumin Triglycerides Cholesterol LDL Cholesterol, Calc HDL Cholesterol TSH Urine Color Urine Appearance Urine pH Ur Specific [place] Urine Protein Urine Glucose (UA) Urine Ketones Urine Blood Urine Nitrite Ur Leukocyte Esterase Urine RBC Urine WBC Ur Squamous Epith Cells Urine Bacteria Hyaline Casts Valproic Acid Imaging Radiology Impressions: ITS Impressions Head CT 02/06/22 15:04 IMPRESSION: No acute intracranial hemorrhage or territorial infarction. Progressed moderate generalized parenchymal volume loss and mild to moderate chronic white matter microangiopathy. 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 Head CT 02/26/22 10:52 IMPRESSION: No acute intracranial hemorrhage or territorial infarction. Stable diffuse parenchymal volume loss and [id number] chronic white matter microangiopathy. Incompletely visualized moderate left maxillary sinus disease with chronic sclerotic wall thickening. 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 No evidence of acute territorial infarct. No intracranial mass effect or hydrocephalus. Medications Medications Current Medications Acetaminophen (Acetaminophen 325 Mg Tablet) 650 mg PO Q6H PRN PRN Reason: Headache/Pain Mild Scale (1-3) Last Admin: 02/26/22 09:54 Dose: 650 mg Al Hydroxide/Mg Hydroxide (Magnesium Hydrox/Alum Hydrox 30 Ml Oral.Susp) 30 ml PO Q6H PRN PRN Reason: Heartburn/Nausea Amlodipine Besylate (Amlodipine Besylate 5 Mg Tablet) 5 mg PO DAILY [facility]; Protocol Last Admin: 02/28/22 08:41 Dose: 5 mg Artificial Tears (Artificial Tears 15 Ml Drops) 1 drop EYE-BOTH Q4H PRN PRN Reason: dry eyes Atorvastatin Calcium (Atorvastatin Calcium 80 Mg Tablet) 80 mg PO DAILY [facility] Last Admin: 02/28/22 08:40 Dose: 80 mg Carvedilol (Carvedilol 12.5 Mg Tablet) 12.5 mg PO BID [facility]; Protocol Last Admin: 02/28/22 08:41 Dose: 12.5 mg Divalproex Sodium (Divalproex Sodium 250 Mg Tablet.) 250 mg PO DAILY [facility] Last Admin: 02/28/22 08:41 Dose: 250 mg Divalproex Sodium (Divalproex Sodium 500 Mg Tablet.) 500 mg PO BEDTIME [facility] Last Admin: 02/27/22 20:42 Dose: 500 mg Donepezil HCl (Donepezil Hcl 10 Mg Tablet) 10 mg PO BEDTIME [facility] Last Admin: 02/27/22 20:41 Dose: 10 mg Guaifenesin/Dextromethorphan (Guaifenesin Dm 100/10/5 Ml 5 Ml Syrup) 10 ml PO Q4H PRN PRN Reason: cough Hydroxyzine HCl (Hydroxyzine Hcl 25 Mg Tablet) 25 mg PO Q6H PRN PRN Reason: Anxiety Last Admin: 02/27/22 20:41 Dose: 25 mg Levothyroxine Sodium (Levothyroxine Sodium 50 Mcg Tablet) 50 mcg PO DAILY@0600 [facility] Last Admin: 02/28/22 06:11 Dose: 50 mcg Magnesium Hydroxide (Milk Of Magnesia 30 Ml Oral.Susp) 30 ml PO DAILY PRN PRN Reason: Constipation Melatonin (Melatonin 3 Mg Tablet) 6 mg PO BEDTIME [facility] Last Admin: 02/27/22 20:41 Dose: 6 mg Melatonin (Melatonin 3 Mg Tablet) 3 mg PO BEDTIME PRN PRN Reason: insomnia Last Admin: 02/27/22 20:41 Dose: 3 mg Nystatin (Nystatin Powder 15 Gm Bottle) 1 appl TOPICAL BID [facility]; Protocol Last Admin: 02/28/22 08:58 Dose: 1 appl Polyethylene Glycol (Polyethylene Glycol 3350 17 Gm Powd.Pack) 17 gm PO DAILY PRN PRN Reason: constipation Quetiapine Fumarate (Quetiapine Fumarate 50 Mg Tablet) 50 mg PO BEDTIME [facility] Last Admin: 02/27/22 20:42 Dose: 50 mg Senna/Docusate Sodium (Sennosides/Docusate Sodium Tablet) 1 tab PO DAILY PRN PRN Reason: constipation Sertraline HCl (Sertraline Hcl 50 Mg Tablet) 50 mg PO DAILY [facility] Last Admin: 02/28/22 08:40 Dose: 50 mg Trazodone HCl (Trazodone Hcl 50 Mg Tablet) 50 mg PO BEDTIME PRN PRN Reason: Insomnia Last Admin: 02/27/22 20:42 Dose: 50 mg Allergies Allergies Allergy/AdvReac Type Severity Reaction Status Date / Time No Known Allergies Allergy Verified 02/05/22 21:09 Assessment & Plan Assessment & Plan (1) Dementia: Status: Acute Code(s): F03.90 - Unspecified dementia, unspecified severity, without behavioral disturbance, psychotic disturbance, mood disturbance, and anxiety Assessment and Plan: Staff reports alteration in mental status in the last 2 days with decreased ability to function and listing to the left side. Rule out right parietal in farct. Recommendation: MRI of the brain without contrast. Waking EEG. (2) Bipolar disorder: Status: Acute Code(s): F31.9 - Bipolar disorder, unspecified Plan the patient is an elderly female with a past history of bipolar disorder, dementia Alzheimer's type for the last 6 months, admitted for recent exacerbation of psychosis and violent behavior.? Very poor historian unable to provide more information.? Continue current treatment plan: 1. PT consult ordered 2.. Gather collateral information.? 3. Continue with regular medications.? 4. Discharge to assisted living facility Or [facility] facility when ready 5. Increased Aricept to 10 mg p.o. q.h.s. on 02/15 6. Monitor BP 7. MRI and EEG ordered. I spent __20____ minutes with the patient and/or on the patient floor today, greater than?50% of which was spent counseling/coordinating care. Reason for contiued inpatient stay Substantial Risk for: inability to function, rapid decompensation and med/psych decompensation
--- NOTE | 2022-02-28 16:01 | PC.NURSE ---
Addendum entered and electronically signed by Dinah Zhao RN 02/28/22 16:07: Pt leaning towards right side while standing, ambulating sitting for unknown reason. MRI and EEG completed this shift, results pending. Original Note: VS elevated this am. 219/97 right forearm, 203/82 left forearm at 0800-Dr Mcguire notified 182/87 right forearm, 195/88 left forearm 0820- Dr Mcguire notified Clonidine 0.1 mg ordered and received at 0842 BP 98/54 P 60 left upper arm 1035- Dr Mcguire informed 90/51 P 54 1115 right upper arm-Dr Mcguire informed 130/68 P 60 left upper arm 1300-Dr Mcguire informed Asymptomatic, reported slight headache this am and then denied
--- NOTE | 2022-02-28 16:49 | EEG_ITS ---
Waking background activity consists of a moderate voltage 6 to 7 hertz diffuse theta intermixed anteriorly with low-voltage fast frequencies. Photic stimulation is without activation. No sleep stages are identified. IMPRESSION: This EEG is considered abnormal due to mild to moderate diffuse background slowing consistent with a diffuse encephalopathic process. No epileptiform discharges were seen. MD HAYES Gunter/MARKO / [id number]
[2022-02-28 18:00] VITALS: BP 124/84; PULSE 63; RESP 16; TEMP 36.5; O2SAT 99
[2022-02-28] MEDS: Melatonin 3 MG TABLET 6 MG PO (21:30)
[2022-02-28] MEDS: QUEtiapine Fumarate 50 MG TABLET PO (21:31)
[2022-02-28] MEDS: Divalproex Sodium 500 MG TABLET.DR PO (21:31)
[2022-02-28] MEDS: Donepezil HCl 10 MG TABLET PO (21:32)
[2022-03-01 06:00] VITALS: BP 182/92; PULSE 61; RESP 18; TEMP 36.2; O2SAT 93
[2022-03-01] MEDS: Levothyroxine Sodium 50 MCG TABLET PO (06:46)
[2022-03-01 07:00] VITALS: BMI 29.1
[2022-03-01] MEDS: amLODIPine Besylate 5 MG TABLET PO (08:20)
[2022-03-01] MEDS: Atorvastatin Calcium 80 MG TABLET PO (08:20)
[2022-03-01] MEDS: Divalproex Sodium 250 MG TABLET.DR PO (08:20)
[2022-03-01] MEDS: Sertraline HCL 50 MG TABLET PO (08:20)
[2022-03-01] MEDS: carvediloL 12.5 MG TABLET PO ×2 (08:20→20:32)
--- NOTE | 2022-03-01 10:44 | P.PNPSI_ITS ---
Subjective Subjective Date of Service: 03/01/22 Reason For Visit: depression, anxiety, alzheimers Subjective Notes: Conditional Voluntary Interim History: The nursing staff reported the patient needed a lot of cuing for medications. Her blood pressure has been up and down. She has been seen anxious and confused at times and she had slept all night. The occupational therapist reported that they were concerned about the mobility problems that she has. She has periods that she cannot order she does not want to walk. 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 Waiting for the EEG results, the EEG was done yesterday in the evening. The social problems specialist is working for and a referral to correction facility. Her [facility] application has not done yet. On interview the patient reports that she is doing fine she looks pleasantly confused but isolative. Mental Status Exam Mental Status Exam Patient Appearance: Well Grooomed Patient Orientation: Person and Situation Level of Consciousness: Awake Patient Behavior: Cooperative and Passive Mood Description: Withdrawn Affect Description: Labile Patient Cognition Impaired: Yes Ability to Follow Directions: Good Speech Pattern: Clear Hallucinations: None Delusions: Not Present Thought Process: Distracted Thought Content: positive for [place] and positive for Circumstantial Judgement: Fair Diagnostics Vital Signs (24Hr): Vital Signs - 24 hr 02/28/22 11:15 02/28/22 13:00 02/28/22 18:00 Temperature 97.7 F Pulse Rate 54 60 63 Respiratory Rate 16 Blood Pressure 90/51 L 130/63 124/84 Pulse Oximetry 99 Oxygen Delivery Method Room Air 03/01/22 06:00 Temperature 97.1 F Pulse Rate 61 Respiratory Rate 18 Blood Pressure 182/92 H Pulse Oximetry 93 Oxygen Delivery Method Room Air BMI result Body Mass Index 29.6 Labs Results: 02/28/22 07:59 02/28/22 07:59 Labs: Laboratory Results - last 48 hr 02/28/22 02/28/22 02/28/22 07:59 07:59 07:59 WBC 4.4 L RBC 3.62 L Hgb 11.2 L Hct 34.2 L MCV 94.5 MCH 30.9 MCHC 32.7 RDW 13.8 Plt Count 127 L MPV 9.3 L Immature Gran % (Auto) 0.5 H Neut % (Auto) 53.5 Lymph % (Auto) 23.2 [place] % (Auto) 20.5 H Eos % (Auto) 1.8 Baso % (Auto) 0.5 Lymph # (Auto) 1.0 L [place] # (Auto) 0.9 Eos # (Auto) 0.1 Baso # (Auto) 0.0 Abs Immat Gran (auto) 0.02 Absolute Neuts (auto) 2.4 Absolute Nucleated RBC 0.000 Nucleated RBC % (auto) 0.0 Smear Tech's Comments VERIFIED Sodium 143 Potassium 3.4 Chloride 103 Carbon Dioxide 29 Anion Gap 14 BUN 25 H Creatinine 0.92 Estim Creat Clear Calc 55.7 Estimated GFR > 60 Random Glucose 104 Estimat Average Glucose 114 Hemoglobin A1c % 5.6 Calcium 8.8 Total Bilirubin 0.3 Direct Bilirubin 0.2 AST 26 D ALT 15 Alkaline Phosphatase 52 Total Protein 6.0 L Albumin 3.5 Triglycerides 125 Cholesterol 186 LDL Cholesterol, Calc 114 HDL Cholesterol 47 D TSH 1.71 Valproic Acid 68.1 Imaging Radiology Impressions: ITS Impressions Head CT 02/06/22 15:04 IMPRESSION: No acute intracranial hemorrhage or territorial infarction. Progressed moderate generalized parenchymal volume loss and mild to moderate chronic white matter microangiopathy. 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 Head CT 02/26/22 10:52 IMPRESSION: No acute intracranial hemorrhage or territorial infarction. Stable diffuse parenchymal volume loss and [id number] chronic white matter microangiopathy. Incompletely visualized moderate left maxillary sinus disease with chronic sclerotic wall thickening. 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 No evidence of acute territorial infarct. No intracranial mass effect or hydrocephalus. Medications Medications Current Medications Acetaminophen (Acetaminophen 325 Mg Tablet) 650 mg PO Q6H PRN PRN Reason: Headache/Pain Mild Scale (1-3) Last Admin: 02/26/22 09:54 Dose: 650 mg Al Hydroxide/Mg Hydroxide (Magnesium Hydrox/Alum Hydrox 30 Ml Oral.Susp) 30 ml PO Q6H PRN PRN Reason: Heartburn/Nausea Amlodipine Besylate (Amlodipine Besylate 5 Mg Tablet) 5 mg PO DAILY [facility]; Protocol Last Admin: 03/01/22 08:20 Dose: 5 mg Artificial Tears (Artificial Tears 15 Ml Drops) 1 drop EYE-BOTH Q4H PRN PRN Reason: dry eyes Atorvastatin Calcium (Atorvastatin Calcium 80 Mg Tablet) 80 mg PO DAILY [facility] Last Admin: 03/01/22 08:20 Dose: 80 mg Carvedilol (Carvedilol 12.5 Mg Tablet) 12.5 mg PO BID [facility]; Protocol Last Admin: 03/01/22 08:20 Dose: 12.5 mg Divalproex Sodium (Divalproex Sodium 250 Mg Tablet.) 250 mg PO DAILY [facility] Last Admin: 03/01/22 08:20 Dose: 250 mg Divalproex Sodium (Divalproex Sodium 500 Mg Tablet.) 500 mg PO BEDTIME [facility] Last Admin: 02/28/22 21:31 Dose: 500 mg Donepezil HCl (Donepezil Hcl 10 Mg Tablet) 10 mg PO BEDTIME [facility] Last Admin: 02/28/22 21:32 Dose: 10 mg Guaifenesin/Dextromethorphan (Guaifenesin Dm 100/10/5 Ml 5 Ml Syrup) 10 ml PO Q4H PRN PRN Reason: cough Hydroxyzine HCl (Hydroxyzine Hcl 25 Mg Tablet) 25 mg PO Q6H PRN PRN Reason: Anxiety Last Admin: 02/27/22 20:41 Dose: 25 mg Levothyroxine Sodium (Levothyroxine Sodium 50 Mcg Tablet) 50 mcg PO DAILY@0600 [facility] Last Admin: 03/01/22 06:46 Dose: 50 mcg Magnesium Hydroxide (Milk Of Magnesia 30 Ml Oral.Susp) 30 ml PO DAILY PRN PRN Reason: Constipation Melatonin (Melatonin 3 Mg Tablet) 6 mg PO BEDTIME [facility] Last Admin: 02/28/22 21:30 Dose: 6 mg Melatonin (Melatonin 3 Mg Tablet) 3 mg PO BEDTIME PRN PRN Reason: insomnia Last Admin: 02/27/22 20:41 Dose: 3 mg Nystatin (Nystatin Powder 15 Gm Bottle) 1 appl TOPICAL BID [facility]; Protocol Last Admin: 02/28/22 21:36 Dose: 1 appl Polyethylene Glycol (Polyethylene Glycol 3350 17 Gm Powd.Pack) 17 gm PO DAILY PRN PRN Reason: constipation Quetiapine Fumarate (Quetiapine Fumarate 50 Mg Tablet) 50 mg PO BEDTIME [facility] Last Admin: 02/28/22 21:31 Dose: 50 mg Senna/Docusate Sodium (Sennosides/Docusate Sodium Tablet) 1 tab PO DAILY PRN PRN Reason: constipation Sertraline HCl (Sertraline Hcl 50 Mg Tablet) 50 mg PO DAILY [facility] Last Admin: 03/01/22 08:20 Dose: 50 mg Trazodone HCl (Trazodone Hcl 50 Mg Tablet) 50 mg PO BEDTIME PRN PRN Reason: Insomnia Last Admin: 02/27/22 20:42 Dose: 50 mg Allergies Allergies Allergy/AdvReac Type Severity Reaction Status Date / Time No Known Allergies Allergy Verified 02/05/22 21:09 Assessment & Plan Assessment & Plan (1) Dementia: Status: Acute Code(s): F03.90 - Unspecified dementia, unspecified severity, without behavioral disturbance, psychotic disturbance, mood disturbance, and anxiety Assessment and Plan: Staff reports alteration in mental status in the last 2 days with decreased ability to function and listing to the left side. Rule out right parietal infarct. Recommendation: MRI of the brain without contrast. Waking EEG. (2) Bipolar disorder: Status: Acute Code(s): F31.9 - Bipolar disorder, unspecified Plan the patient is an elderly female with a past history of bipolar disorder, dementia Alzheimer's type for the last 6 months, admitted for recent exacerbation of psychosis and violent behavior.? Very poor historian unable to provide more information.? Continue current treatment plan: 1. PT consult ordered 2.. Gather collateral information.? 3. Continue with regular medications.? 4. Discharge to assisted living facility Or correction facility when ready 5. Increased Aricept to 10 mg p.o. q.h.s. on 02/15 6. Monitor BP 7. MRI and EEG ordered. We will follow the EEG results. 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 I spent __20____ minutes with the patient and/or on the patient floor today, greater than?50% of which was spent counseling/coordinating care. Reason for contiued inpatient stay Substantial Risk for: inability to function, rapid decompensation and med/psych decompensation
[2022-03-01 18:00] VITALS: BP 147/62; PULSE 71; RESP 18; TEMP 36.1; O2SAT 99
[2022-03-01] MEDS: Melatonin 3 MG TABLET 6 MG PO (20:32)
[2022-03-01] MEDS: Divalproex Sodium 500 MG TABLET.DR PO (20:32)
[2022-03-01] MEDS: Donepezil HCl 10 MG TABLET PO (20:32)
[2022-03-01] MEDS: Melatonin 3 MG TABLET PO (20:32)
[2022-03-01] MEDS: QUEtiapine Fumarate 50 MG TABLET PO (20:32)
[2022-03-02 06:00] VITALS: BP 147/77; PULSE 60; RESP 18; TEMP 36.5; O2SAT 100
[2022-03-02] MEDS: Levothyroxine Sodium 50 MCG TABLET PO (06:31)
[2022-03-02] MEDS: amLODIPine Besylate 5 MG TABLET PO (07:38)
[2022-03-02] MEDS: Sertraline HCL 50 MG TABLET PO (07:38)
[2022-03-02] MEDS: Divalproex Sodium 250 MG TABLET.DR PO (07:38)
[2022-03-02] MEDS: carvediloL 12.5 MG TABLET PO ×2 (07:38→20:26)
[2022-03-02] MEDS: Atorvastatin Calcium 80 MG TABLET PO (07:38)
--- NOTE | 2022-03-02 14:40 | P.PNPSI_ITS ---
Subjective Subjective Date of Service: 03/02/22 Reason For Visit: depression, anxiety, alzheimers Subjective Notes: Conditional Voluntary Interim History: The nursing staff reported the patient slept all night, her appetite had been normal. The EEG did not show any is seizure activity only diffuse encephalopathy, also the MRI did not show any new lesions. We talked with the family and explained the findings. On interview the patient denies new symptoms Mental Status Exam Mental Status Exam Patient Appearance: Well Grooomed Patient Orientation: Person and Situation Level of Consciousness: Awake Patient Behavior: Guarded and Cooperative Mood Description: Withdrawn Affect Description: Constricted Patient Cognition Impaired: Yes Ability to Follow Directions: Good Speech Pattern: Clear Hallucinations: None Delusions: Not Present Thought Process: Distracted Thought Content: positive for [place] and positive for Circumstantial Judgement: Fair Diagnostics Vital Signs (24Hr): Vital Signs - 24 hr 03/01/22 18:00 03/02/22 06:00 Temperature 97.0 F 97.7 F Pulse Rate 71 60 Respiratory Rate 18 18 Blood Pressure 147/62 H 147/77 H Pulse Oximetry 99 100 Oxygen Delivery Method Room Air Room Air BMI result Body Mass Index 29.1 Labs Results: 02/28/22 07:59 02/28/22 07:59 Imaging Radiology Impressions: ITS Impressions Head CT 02/06/22 15:04 IMPRESSION: No acute intracranial hemorrhage or territorial infarction. Progressed moderate generalized parenchymal volume loss and mild to moderate chronic white matter microangiopathy. 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 Head CT 02/26/22 10:52 IMPRESSION: No acute intracranial hemorrhage or territorial infarction. Stable diffuse parenchymal volume loss and [id number] chronic white matter microangiopathy. Incompletely visualized moderate left maxillary sinus disease with chronic sclerotic wall thickening. 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 No evidence of acute territorial infarct. No intracranial mass effect or hydrocephalus. Medications Medications Current Medications Acetaminophen (Acetaminophen 325 Mg Tablet) 650 mg PO Q6H PRN PRN Reason: Headache/Pain Mild Scale (1-3) Last Admin: 02/26/22 09:54 Dose: 650 mg Al Hydroxide/Mg Hydroxide (Magnesium Hydrox/Alum Hydrox 30 Ml Oral.Susp) 30 ml PO Q6H PRN PRN Reason: Heartburn/Nausea Amlodipine Besylate (Amlodipine Besylate 5 Mg Tablet) 5 mg PO DAILY [facility]; Protocol Last Admin: 03/02/22 07:38 Dose: 5 mg Artificial Tears (Artificial Tears 15 Ml Drops) 1 drop EYE-BOTH Q4H PRN PRN Reason: dry eyes Atorvastatin Calcium (Atorvastatin Calcium 80 Mg Tablet) 80 mg PO DAILY [facility] Last Admin: 03/02/22 07:38 Dose: 80 mg Carvedilol (Carvedilol 12.5 Mg Tablet) 12.5 mg PO BID [facility]; Protocol Last Admin: 03/02/22 07:38 Dose: 12.5 mg Divalproex Sodium (Divalproex Sodium 250 Mg Tablet.) 250 mg PO DAILY [facility] Last Admin: 03/02/22 07:38 Dose: 250 mg Divalproex Sodium (Divalproex Sodium 500 Mg Tablet.) 500 mg PO BEDTIME [facility] Last Admin: 03/01/22 20:32 Dose: 500 mg Donepezil HCl (Donepezil Hcl 10 Mg Tablet) 10 mg PO BEDTIME [facility] Last Admin: 03/01/22 20:32 Dose: 10 mg Guaifenesin/Dextromethorphan (Guaifenesin Dm 100/10/5 Ml 5 Ml Syrup) 10 ml PO Q4H PRN PRN Reason: cough Hydroxyzine HCl (Hydroxyzine Hcl 25 Mg Tablet) 25 mg PO Q6H PRN PRN Reason: Anxiety Last Admin: 02/27/22 20:41 Dose: 25 mg Levothyroxine Sodium (Levothyroxine Sodium 50 Mcg Tablet) 50 mcg PO DAILY@0600 [facility] Last Admin: 03/02/22 06:31 Dose: 50 mcg Magnesium Hydroxide (Milk Of Magnesia 30 Ml Oral.Susp) 30 ml PO DAILY PRN PRN Reason: Constipation Melatonin (Melatonin 3 Mg Tablet) 6 mg PO BEDTIME [facility] Last Admin: 03/01/22 20:32 Dose: 6 mg Melatonin (Melatonin 3 Mg Tablet) 3 mg PO BEDTIME PRN PRN Reason: insomnia Last Admin: 03/01/22 20:32 Dose: 3 mg Nystatin (Nystatin Powder 15 Gm Bottle) 1 appl TOPICAL BID [facility]; Protocol Last Admin: 03/02/22 07:39 Dose: Not Given Polyethylene Glycol (Polyethylene Glycol 3350 17 Gm Powd.Pack) 17 gm PO DAILY PRN PRN Reason: constipation Quetiapine Fumarate (Quetiapine Fumarate 50 Mg Tablet) 50 mg PO BEDTIME [facility] Last Admin: 03/01/22 20:32 Dose: 50 mg Senna/Docusate Sodium (Sennosides/Docusate Sodium Tablet) 1 tab PO DAILY PRN PRN Reason: constipation Sertraline HCl (Sertraline Hcl 50 Mg Tablet) 50 mg PO DAILY [facility] Last Admin: 03/02/22 07:38 Dose: 50 mg Trazodone HCl (Trazodone Hcl 50 Mg Tablet) 50 mg PO BEDTIME PRN PRN Reason: Insomnia Last Admin: 02/27/22 20:42 Dose: 50 mg Allergies Allergies Allergy/AdvReac Type Severity Reaction Status Date / Time No Known Allergies Allergy Verified 02/05/22 21:09 Assessment & Plan Assessment & Plan (1) Dementia: Status: Acute Code(s): F03.90 - Unspecified dementia, unspecified severity, without behavioral disturbance, psychotic disturbance, mood disturbance, and anxiety Assessment and Plan: Staff reports alteration in mental status in the last 2 days with decreased ability to function and listing to the left side. Rule out right parietal infarct. Recommendation: MRI of the brain without contrast. Waking EEG. (2) Bipolar disorder: Status: Acute Code(s): F31.9 - Bipolar disorder, unspecified Plan the patient is an elderly female with a past history of bipolar disorder, dementia Alzheimer's type for the last 6 months, admitted for recent exacerbation of psychosis and violent behavior.? Very poor historian unable to provide more information.? Continue current treatment plan: 1. PT consult ordered 2.. Gather collateral information.? 3. Continue with regular medications.? 4. Discharge to assisted living facility Or retirement facility when ready 5. Increased Aricept to 10 mg p.o. q.h.s. on 02/15 6. Monitor BP 7. MRI and EEG ordered. We will follow the EEG results under was no seizure activity. 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 I spent __20____ minutes with the patient and/or on the patient floor today, greater than?50% of which was spent counseling/coordinating care. Reason for contiued inpatient stay Substantial Risk for: inability to function, rapid decompensation and med/psych decompensation
[2022-03-02 18:00] VITALS: BP 167/79; PULSE 64; RESP 18; TEMP 36.4; O2SAT 96
[2022-03-02] MEDS: QUEtiapine Fumarate 50 MG TABLET PO (20:26)
[2022-03-02] MEDS: Divalproex Sodium 500 MG TABLET.DR PO (20:26)
[2022-03-02] MEDS: Donepezil HCl 10 MG TABLET PO (20:26)
[2022-03-02] MEDS: Melatonin 3 MG TABLET 6 MG PO (20:26)
[2022-03-03 06:00] VITALS: BP 208/95; PULSE 61; RESP 16; TEMP 35.9; O2SAT 96
[2022-03-03] MEDS: Levothyroxine Sodium 50 MCG TABLET PO (06:17)
[2022-03-03] MEDS: amLODIPine Besylate 5 MG TABLET PO (08:58)
[2022-03-03] MEDS: Atorvastatin Calcium 80 MG TABLET PO (08:58)
[2022-03-03] MEDS: Divalproex Sodium 250 MG TABLET.DR PO (08:58)
[2022-03-03] MEDS: Sertraline HCL 50 MG TABLET PO (08:58)
[2022-03-03] MEDS: carvediloL 12.5 MG TABLET PO ×2 (08:58→20:11)
--- NOTE | 2022-03-03 11:28 | P.PNPSI_ITS ---
Subjective Subjective Date of Service: 03/03/22 Reason For Visit: depression, anxiety, alzheimers Interim History: calm, cooperative. ambulates slowly with walker. no complaints or requests. per staff, says she can't walk, but she does. slept well, eating well. Mental Status Exam Mental Status Exam Patient Appearance: Well Grooomed Patient Orientation: Person and Situation Level of Consciousness: Awake Patient Behavior: Guarded and Cooperative Mood Description: Withdrawn Affect Description: Constricted Patient Cognition Impaired: Yes Ability to Follow Directions: Good Speech Pattern: Clear Hallucinations: None Delusions: Not Present Thought Process: Distracted Thought Content: positive for [place] and positive for Circumstantial Judgement: Fair Diagnostics Vital Signs (24Hr): Vital Signs - 24 hr 03/02/22 18:00 03/03/22 06:00 Temperature 97.6 F 96.7 F L Pulse Rate 64 61 Respiratory Rate 18 16 Blood Pressure 167/79 H 208/95 H Pulse Oximetry 96 96 Oxygen Delivery Method Room Air Room Air BMI result Body Mass Index 29.1 Labs Results: 02/28/22 07:59 02/28/22 07:59 Imaging Radiology Impressions: ITS Impressions Head CT 02/06/22 15:04 IMPRESSION: No acute intracranial hemorrhage or territorial infarction. Progressed moderate generalized parenchymal volume loss and mild to moderate chronic white matter microangiopathy. 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 Head CT 02/26/22 10:52 IMPRESSION: No acute intracranial hemorrhage or territorial infarction. Stable diffuse parenchymal volume loss and dzcw-nk-woeerboy chronic white matter microangiopathy. Incompletely visualized moderate left maxillary sinus disease with chronic sclerotic wall thickening. 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 No evidence of acute territorial infarct. No intracranial mass effect or hydrocephalus. Medications Medications Current Medications Acetaminophen (Acetaminophen 325 Mg Tablet) 650 mg PO Q6H PRN PRN Reason: Headache/Pain Mild Scale (1-3) Last Admin: 02/26/22 09:54 Dose: 650 mg Al Hydroxide/Mg Hydroxide (Magnesium Hydrox/Alum Hydrox 30 Ml Oral.Susp) 30 ml PO Q6H PRN PRN Reason: Heartburn/Nausea Amlodipine Besylate (Amlodipine Besylate 5 Mg Tablet) 5 mg PO DAILY [facility]; Protocol Last Admin: 03/03/22 08:58 Dose: 5 mg Artificial Tears (Artificial Tears 15 Ml Drops) 1 drop EYE-BOTH Q4H PRN PRN Reason: dry eyes Atorvastatin Calcium (Atorvastatin Calcium 80 Mg Tablet) 80 mg PO DAILY [facility] Last Admin: 03/03/22 08:58 Dose: 80 mg Carvedilol (Carvedilol 12.5 Mg Tablet) 12.5 mg PO BID [facility]; Protocol Last Admin: 03/03/22 08:58 Dose: 12.5 mg Divalproex Sodium (Divalproex Sodium 250 Mg Tablet.) 250 mg PO DAILY [facility] Last Admin: 03/03/22 08:58 Dose: 250 mg Divalproex Sodium (Divalproex Sodium 500 Mg Tablet.Dr) 500 mg PO BEDTIME [facility] Last Admin: 03/02/22 20:26 Dose: 500 mg Donepezil HCl (Donepezil Hcl 10 Mg Tablet) 10 mg PO BEDTIME [facility] Last Admin: 03/02/22 20:26 Dose: 10 mg Guaifenesin/Dextromethorphan (Guaifenesin Dm 100/10/5 Ml 5 Ml Syrup) 10 ml PO Q4H PRN PRN Reason: cough Hydroxyzine HCl (Hydroxyzine Hcl 25 Mg Tablet) 25 mg PO Q6H PRN PRN Reason: Anxiety Last Admin: 02/27/22 20:41 Dose: 25 mg Levothyroxine Sodium (Levothyroxine Sodium 50 Mcg Tablet) 50 mcg PO DAILY@0600 [facility] Last Admin: 03/03/22 06:17 Dose: 50 mcg Magnesium Hydroxide (Milk Of Magnesia 30 Ml Oral.Susp) 30 ml PO DAILY PRN PRN Reason: Constipation Melatonin (Melatonin 3 Mg Tablet) 6 mg PO BEDTIME [facility] Last Admin: 03/02/22 20:26 Dose: 6 mg Melatonin (Melatonin 3 Mg Tablet) 3 mg PO BEDTIME PRN PRN Reason: insomnia Last Admin: 03/01/22 20:32 Dose: 3 mg Nystatin (Nystatin Powder 15 Gm Bottle) 1 appl TOPICAL BID [facility]; Protocol Last Admin: 03/03/22 09:22 Dose: Not Given Polyethylene Glycol (Polyethylene Glycol 3350 17 Gm Powd.Pack) 17 gm PO DAILY PRN PRN Reason: constipation Quetiapine Fumarate (Quetiapine Fumarate 50 Mg Tablet) 50 mg PO BEDTIME [facility] Last Admin: 03/02/22 20:26 Dose: 50 mg Senna/Docusate Sodium (Sennosides/Docusate Sodium Tablet) 1 tab PO DAILY PRN PRN Reason: constipation Sertraline HCl (Sertraline Hcl 50 Mg Tablet) 50 mg PO DAILY [facility] Last Admin: 03/03/22 08:58 Dose: 50 mg Trazodone HCl (Trazodone Hcl 50 Mg Tablet) 50 mg PO BEDTIME PRN PRN Reason: Insomnia Last Admin: 02/27/22 20:42 Dose: 50 mg Allergies Allergies Allergy/AdvReac Type Severity Reaction Status Date / Time No Known Allergies Allergy Verified 02/05/22 21:09 Assessment & Plan Assessment & Plan (1) Dementia: Status: Acute Code(s): F03.90 - Unspecified dementia, unspecified severity, without behavioral disturbance, psychotic disturbance, mood disturbance, and anxiety Assessment and Plan: Staff reports alteration in mental status in the last 2 days with decreased ability to function and listing to the left side. Rule out right parietal infarct. Recommendation: MRI of the brain without contrast. Waking EEG. (2) Bipolar disorder: Status: Acute Code(s): F31.9 - Bipolar disorder, unspecified Plan the patient is an elderly female with a past history of bipolar disorder, dementia Alzheimer's type for the last 6 months, admitted for recent exacerbation of psychosis and violent behavior.? Very poor historian unable to provide more information.? Continue current treatment plan: 1. PT consult ordered 2.. Gather collateral information.? 3. Continue with regular medications.? 4. Discharge to assisted living facility Or shelter facility when ready 5. Increased Aricept to 10 mg p.o. q.h.s. on 02/15 6. Monitor BP 7. MRI and EEG ordered. We will follow the EEG results under was no seizure activity. 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 03/03: stable continue current mgmt. I spent ___15___ minutes with the patient and/or on the patient floor today, greater than?50% of which was spent counseling/coordinating care. Reason for contiued inpatient stay Substantial Risk for: inability to function and rapid decompensation
[2022-03-03 18:00] VITALS: BP 181/86; PULSE 65; RESP 16; TEMP 36.2; O2SAT 94
[2022-03-03] MEDS: Divalproex Sodium 500 MG TABLET.DR PO (20:11)
[2022-03-03] MEDS: Donepezil HCl 10 MG TABLET PO (20:11)
[2022-03-03] MEDS: Melatonin 3 MG TABLET 6 MG PO (20:11)
[2022-03-03] MEDS: QUEtiapine Fumarate 50 MG TABLET PO (20:11)
[2022-03-04 06:00] VITALS: BP 170/103; PULSE 66; RESP 16; TEMP 36.7; O2SAT 94
[2022-03-04] MEDS: Levothyroxine Sodium 50 MCG TABLET PO (06:26)
[2022-03-04] MEDS: amLODIPine Besylate 5 MG TABLET PO ×2 (09:26→15:02)
[2022-03-04] MEDS: Sertraline HCL 50 MG TABLET PO (09:27)
[2022-03-04] MEDS: Atorvastatin Calcium 80 MG TABLET PO (09:27)
[2022-03-04] MEDS: Divalproex Sodium 250 MG TABLET.DR PO (09:27)
[2022-03-04] MEDS: carvediloL 12.5 MG TABLET PO ×2 (09:27→20:13)
--- NOTE | 2022-03-04 12:13 | P.PNPSI_ITS ---
Subjective Subjective Date of Service: 03/04/22 Reason For Visit: depression, anxiety, alzheimers Interim History: seen in milieu doing word search. calm, cooperative. expresses irritation her family said they were going to visit her yesterday but no-showed. otherwise no complaints or requests. per staff, more social with peers. angry re no visit yesterday. HTN. Mental Status Exam Mental Status Exam Patient Appearance: Well Grooomed Patient Orientation: Person and Situation Level of Consciousness: Awake Patient Behavior: Guarded and Cooperative Mood Description: Withdrawn Affect Description: Constricted Patient Cognition Impaired: Yes Ability to Follow Directions: Good Speech Pattern: Clear Hallucinations: None Delusions: Not Present Thought Process: Distracted Thought Content: positive for [place] and positive for Circumstantial Judgement: Fair Diagnostics Vital Signs (24Hr): Vital Signs - 24 hr 03/03/22 18:00 03/04/22 06:00 Temperature 97.1 F 98.1 F Pulse Rate 65 66 Respiratory Rate 16 16 Blood Pressure 181/86 H 170/103 H Pulse Oximetry 94 94 Oxygen Delivery Method Room Air Room Air BMI result Body Mass Index 29.1 Labs Results: 02/28/22 07:59 02/28/22 07:59 Imaging Radiology Impressions: ITS Impressions Head CT 02/06/22 15:04 IMPRESSION: No acute intracranial hemorrhage or territorial infarction. Progressed moderate generalized parenchymal volume loss and mild to moderate chronic white matter microangiopathy. 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 Head CT 02/26/22 10:52 IMPRESSION: No acute intracranial hemorrhage or territorial infarction. Stable diffuse parenchymal volume loss and [id number] chronic white matter microangiopathy. Incompletely visualized moderate left maxillary sinus disease with chronic sclerotic wall thickening. 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 No evidence of acute territorial infarct. No intracranial mass effect or hydrocephalus. Medications Medications Current Medications Acetaminophen (Acetaminophen 325 Mg Tablet) 650 mg PO Q6H PRN PRN Reason: Headache/Pain Mild Scale (1-3) Last Admin: 02/26/22 09:54 Dose: 650 mg Al Hydroxide/Mg Hydroxide (Magnesium Hydrox/Alum Hydrox 30 Ml Oral.Susp) 30 ml PO Q6H PRN PRN Reason: Heartburn/Nausea Amlodipine Besylate (Amlodipine Besylate 5 Mg Tablet) 5 mg PO DAILY [facility]; Protocol Last Admin: 03/04/22 09:26 Dose: 5 mg Artificial Tears (Artificial Tears 15 Ml Drops) 1 drop EYE-BOTH Q4H PRN PRN Reason: dry eyes Atorvastatin Calcium (Atorvastatin Calcium 80 Mg Tablet) 80 mg PO DAILY [facility] Last Admin: 03/04/22 09:27 Dose: 80 mg Carvedilol (Carvedilol 12.5 Mg Tablet) 12.5 mg PO BID [facility]; Protocol Last Admin: 03/04/22 09:27 Dose: 12.5 mg Divalproex Sodium (Divalproex Sodium 250 Mg Tablet.) 250 mg PO DAILY [facility] Last Admin: 03/04/22 09:27 Dose: 250 mg Divalproex Sodium (Divalproex Sodium 500 Mg Tablet.) 500 mg PO BEDTIME [facility] Last Admin: 03/03/22 20:11 Dose: 500 mg Donepezil HCl (Donepezil Hcl 10 Mg Tablet) 10 mg PO BEDTIME [facility] Last Admin: 03/03/22 20:11 Dose: 10 mg Guaifenesin/Dextromethorphan (Guaifenesin Dm 100/10/5 Ml 5 Ml Syrup) 10 ml PO Q4H PRN PRN Reason: cough Hydroxyzine HCl (Hydroxyzine Hcl 25 Mg Tablet) 25 mg PO Q6H PRN PRN Reason: Anxiety Last Admin: 02/27/22 20:41 Dose: 25 mg Levothyroxine Sodium (Levothyroxine Sodium 50 Mcg Tablet) 50 mcg PO DAILY@0600 [facility] Last Admin: 03/04/22 06:26 Dose: 50 mcg Magnesium Hydroxide (Milk Of Magnesia 30 Ml Oral.Susp) 30 ml PO DAILY PRN PRN Reason: Constipation Melatonin (Melatonin 3 Mg Tablet) 6 mg PO BEDTIME [facility] Last Admin: 03/03/22 20:11 Dose: 6 mg Melatonin (Melatonin 3 Mg Tablet) 3 mg PO BEDTIME PRN PRN Reason: insomnia Last Admin: 03/01/22 20:32 Dose: 3 mg Nystatin (Nystatin Powder 15 Gm Bottle) 1 appl TOPICAL BID [facility]; Protocol Last Admin: 03/04/22 09:29 Dose: Not Given Polyethylene Glycol (Polyethylene Glycol 3350 17 Gm Powd.Pack) 17 gm PO DAILY PRN PRN Reason: constipation Quetiapine Fumarate (Quetiapine Fumarate 50 Mg Tablet) 50 mg PO BEDTIME [facility] Last Admin: 03/03/22 20:11 Dose: 50 mg Senna/Docusate Sodium (Sennosides/Docusate Sodium Tablet) 1 tab PO DAILY PRN PRN Reason: constipation Sertraline HCl (Sertraline Hcl 50 Mg Tablet) 50 mg PO DAILY [facility] Last Admin: 03/04/22 09:27 Dose: 50 mg Trazodone HCl (Trazodone Hcl 50 Mg Tablet) 50 mg PO BEDTIME PRN PRN Reason: Insomnia Last Admin: 02/27/22 20:42 Dose: 50 mg Allergies Allergies Allergy/AdvReac Type Severity Reaction Status Date / Time No Known Allergies Allergy Verified 02/05/22 21:09 Assessment & Plan Assessment & Plan (1) Dementia: Status: Acute Code(s): F03.90 - Unspecified dementia, unspecified severity, without behavioral disturbance, psychotic disturbance, mood disturbance, and anxiety Assessment and Plan: Staff reports alteration in mental status in the last 2 days with decreased ability to function and listing to the left side. Rule out right parietal inf arct. Recommendation: MRI of the brain without contrast. Waking EEG. (2) Bipolar disorder: Status: Acute Code(s): F31.9 - Bipolar disorder, unspecified Plan the patient is an elderly female with a past history of bipolar disorder, dementia Alzheimer's type for the last 6 months, admitted for recent exacerbation of psychosis and violent behavior.? Very poor historian unable to provide more information.? Continue current treatment plan: 1. PT consult ordered 2.. Gather collateral information.? 3. Continue with regular medications.? 4. Discharge to assisted living facility Or correction facility when ready 5. Increased Aricept to 10 mg p.o. q.h.s. on 02/15 6. Monitor BP 7. MRI and EEG ordered. We will follow the EEG results under was no seizure activity. 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 03/03: stable continue current mgmt. 03/04: stable presentation. hospitalist consult for HTN mgmt. I spent ___20___ minutes with the patient and/or on the patient floor today, greater than?50% of which was spent counseling/coordinating care. Reason for contiued inpatient stay Substantial Risk for: inability to function and rapid decompensation
--- NOTE | 2022-03-04 13:44 | PM.EVENT ---
Event Note Date of Service: 03/04/22 Event Note: elevated blood pressures will increase amldoipnie to 10mg daily, added hctz 25mg daily, follow up labs change to low sodium diet
[2022-03-04] MEDS: hydroCHLOROthiazide 25 MG TABLET PO (15:02)
[2022-03-04 18:00] VITALS: BP 166/81; PULSE 72; RESP 16; TEMP 36.5; O2SAT 96
[2022-03-04] MEDS: Melatonin 3 MG TABLET 6 MG PO (20:13)
[2022-03-04] MEDS: Divalproex Sodium 500 MG TABLET.DR PO (20:14)
[2022-03-04] MEDS: QUEtiapine Fumarate 50 MG TABLET PO (20:14)
[2022-03-04] MEDS: Donepezil HCl 10 MG TABLET PO (20:15)
[2022-03-05 06:00] VITALS: BP 176/82; PULSE 63; RESP 16; TEMP 36.8; O2SAT 92
[2022-03-05] MEDS: Levothyroxine Sodium 50 MCG TABLET PO (06:12)
[2022-03-05] MEDS: Divalproex Sodium 250 MG TABLET.DR PO (08:02)
[2022-03-05] MEDS: hydroCHLOROthiazide 25 MG TABLET PO (08:02)
[2022-03-05] MEDS: Atorvastatin Calcium 80 MG TABLET PO (08:03)
[2022-03-05] MEDS: carvediloL 12.5 MG TABLET PO ×2 (08:03→21:02)
[2022-03-05] MEDS: amLODIPine Besylate 10 MG TABLET PO (08:03)
[2022-03-05 09:32] LABS: Anion Gap 16 (12-20); Blood Urea Nitrogen 27 mg/dL (9-16); Calcium 9.2 mg/dL (8.4-10.2); Carbon Dioxide 30 mmol/L (22-29); Chloride 99 mmol/L (96-108); Creatinine Clr Calc Pharmacy 43.4; Estimated Glomerular Filt Rate 46; Glucose Fasting 104 mg/dL (60-99); Potassium 3.6 mmol/L (3.3-5.1); Sodium 141 mmol/L (135-145)
[2022-03-05] MEDS: Nystatin Powder 15 GM BOTTLE 1 APPL TOPICAL (09:43)
[2022-03-05] MEDS: Sertraline HCL 50 MG TABLET PO (09:43)
--- NOTE | 2022-03-05 15:08 | P.PNPSI_ITS ---
Subjective Subjective Date of Service: 03/05/22 Reason For Visit: depression, anxiety, alzheimers Subjective Notes: Conditional Voluntary Interim History: The nursing staff reported the patient had been fully compliant with treatment. The public health social worker reported the [facility] application is on process and is 1 of the barriers for discharge. The hospitalist saw her on March 21 and the change her blood pressure medications since it was going higher. Last week she had some neurological symptoms that were and clear ID resolved by itself. EEG and MRI without any new findings. On interview the patient denies new symptoms, confused at times but easily redirectable. Mental Status Exam Mental Status Exam Patient Appearance: Appropriate Patient Orientation: Person and Situation Level of Consciousness: Awake Patient Behavior: Guarded and Passive Mood Description: Constricted Affect Description: Constricted Patient Cognition Impaired: Yes Ability to Follow Directions: Good Speech Pattern: Clear Hallucinations: None Delusions: Not Present Thought Process: Distracted Thought Content: positive for Circumstantial Judgement: Fair Diagnostics Vital Signs (24Hr): Vital Signs - 24 hr 03/04/22 18:00 03/05/22 06:00 Temperature 97.7 F 98.2 F Pulse Rate 72 63 Respiratory Rate 16 16 Blood Pressure 166/81 H 176/82 H Pulse Oximetry 96 92 Oxygen Delivery Method Room Air Room Air BMI result Body Mass Index 29.1 Labs Results: 02/28/22 07:59 03/05/22 07:44 Labs: Laboratory Results - last 48 hr 03/05/22 07:44 Sodium 141 Potassium 3.6 Chloride 99 Carbon Dioxide 30 H Anion Gap 16 BUN 27 H Creatinine 1.17 Estim Creat Clear Calc 43.4 Estimated GFR 46 Fasting Glucose 104 H Calcium 9.2 Magnesium 2.0 Imaging Radiology Impressions: ITS Impressions Head CT 02/06/22 15:04 IMPRESSION: No acute intracranial hemorrhage or territorial infarction. Progressed moderate generalized parenchymal volume loss and mild to moderate chronic white matter microangiopathy. 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 Head CT 02/26/22 10:52 IMPRESSION: No acute intracranial hemorrhage or territorial infarction. Stable diffuse parenchymal volume loss and [id number] chronic white matter microangiopathy. Incompletely visualized moderate left maxillary sinus disease with chronic sclerotic wall thickening. 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 No evidence of acute territorial infarct. No intracranial mass effect or hydrocephalus. Medications Medications Current Medications Acetaminophen (Acetaminophen 325 Mg Tablet) 650 mg PO Q6H PRN PRN Reason: Headache/Pain Mild Scale (1-3) Last Admin: 02/26/22 09:54 Dose: 650 mg Al Hydroxide/Mg Hydroxide (Magnesium Hydrox/Alum Hydrox 30 Ml Oral.Susp) 30 ml PO Q6H PRN PRN Reason: Heartburn/Nausea Amlodipine Besylate (Amlodipine Besylate 10 Mg Tablet) 10 mg PO DAILY [facility]; Protocol Last Admin: 03/05/22 08:03 Dose: 10 mg Artificial Tears (Artificial Tears 15 Ml Drops) 1 drop EYE-BOTH Q4H PRN PRN Reason: dry eyes Atorvastatin Calcium (Atorvastatin Calcium 80 Mg Tablet) 80 mg PO DAILY [facility] Last Admin: 03/05/22 08:03 Dose: 80 mg Carvedilol (Carvedilol 12.5 Mg Tablet) 12.5 mg PO BID [facility]; Protocol Last Admin: 03/05/22 08:03 Dose: 12.5 mg Divalproex Sodium (Divalproex Sodium 250 Mg Tablet.) 250 mg PO DAILY [facility] Last Admin: 03/05/22 08:02 Dose: 250 mg Divalproex Sodium (Divalproex Sodium 500 Mg Tablet.) 500 mg PO BEDTIME [facility] Last Admin: 03/04/22 20:14 Dose: 500 mg Donepezil HCl (Donepezil Hcl 10 Mg Tablet) 10 mg PO BEDTIME [facility] Last Admin: 03/04/22 20:15 Dose: 10 mg Guaifenesin/Dextromethorphan (Guaifenesin Dm 100/10/5 Ml 5 Ml Syrup) 10 ml PO Q4H PRN PRN Reason: cough Hydrochlorothiazide (Hydrochlorothiazide 25 Mg Tablet) 25 mg PO DAILY [facility]; Protocol Last Admin: 03/05/22 08:02 Dose: 25 mg Hydroxyzine HCl (Hydroxyzine Hcl 25 Mg Tablet) 25 mg PO Q6H PRN PRN Reason: Anxiety Last Admin: 02/27/22 20:41 Dose: 25 mg Levothyroxine Sodium (Levothyroxine Sodium 50 Mcg Tablet) 50 mcg PO DAILY@0600 [facility] Last Admin: 03/05/22 06:12 Dose: 50 mcg Magnesium Hydroxide (Milk Of Magnesia 30 Ml Oral.Susp) 30 ml PO DAILY PRN PRN Reason: Constipation Melatonin (Melatonin 3 Mg Tablet) 6 mg PO BEDTIME [facility] Last Admin: 03/04/22 20:13 Dose: 6 mg Melatonin (Melatonin 3 Mg Tablet) 3 mg PO BEDTIME PRN PRN Reason: insomnia Last Admin: 03/01/22 20:32 Dose: 3 mg Nystatin (Nystatin Powder 15 Gm Bottle) 1 appl TOPICAL BID [facility]; Protocol Last Admin: 03/05/22 09:43 Dose: 1 appl Polyethylene Glycol (Polyethylene Glycol 3350 17 Gm Powd.Pack) 17 gm PO DAILY PRN PRN Reason: constipation Quetiapine Fumarate (Quetiapine Fumarate 50 Mg Tablet) 50 mg PO BEDTIME [facility] Last Admin: 03/04/22 20:14 Dose: 50 mg Senna/Docusate Sodium (Sennosides/Docusate Sodium Tablet) 1 tab PO DAILY PRN PRN Reason: constipation Sertraline HCl (Sertraline Hcl 50 Mg Tablet) 50 mg PO DAILY [facility] Last Admin: 03/05/22 09:43 Dose: 50 mg Trazodone HCl (Trazodone Hcl 50 Mg Tablet) 50 mg PO BEDTIME PRN PRN Reason: Insomnia Last Admin: 02/27/22 20:42 Dose: 50 mg Allergies Allergies Allergy/AdvReac Type Severity Reaction Status Date / Time No Known Allergies Allergy Verified 02/05/22 21:09 Assessment & Plan Assessment & Plan (1) Dementia: Status: Acute Code(s): F03.90 - Unspecified dementia, unspecified severity, without behavioral dist urbance, psychotic disturbance, mood disturbance, and anxiety Assessment and Plan: Staff reports alteration in mental status in the last 2 days with decreased ability to function and listing to the left side. Rule out right parietal infarct. Recommendation: MRI of the brain without contrast. Waking EEG. (2) Bipolar disorder: Status: Acute Code(s): F31.9 - Bipolar disorder, unspecified Plan the patient is an elderly female with a past history of bipolar disorder, dementia Alzheimer's type for the last 6 months, admitted for recent exacerbation of psychosis and violent behavior.? Very poor historian unable to provide more information.? Continue current treatment plan: 1. PT consult ordered 2.. Gather collateral information.? 3. Continue with regular medications.? 4. Discharge to assisted living facility Or [facility] facility when ready 5. Increased Aricept to 10 mg p.o. q.h.s. on 02/15 6. Monitor BP 7. MRI and EEG ordered. We will follow the EEG results under was no seizure activity. 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 8. Continue recommendations of blood pressure medication as per hospitalist. I spent ___20___ minutes with the patient and/or on the patient floor today, greater than?50% of which was spent counseling/coordinating care. Reason for contiued inpatient stay Substantial Risk for: inability to function, rapid decompensation and med/psych decompensation
[2022-03-05 18:00] VITALS: BP 160/73; PULSE 69; RESP 17; TEMP 36.7; O2SAT 97
[2022-03-05] MEDS: Melatonin 3 MG TABLET 6 MG PO (21:01)
[2022-03-05] MEDS: Divalproex Sodium 500 MG TABLET.DR PO (21:02)
[2022-03-05] MEDS: Donepezil HCl 10 MG TABLET PO (21:02)
[2022-03-05] MEDS: QUEtiapine Fumarate 50 MG TABLET PO (21:02)
[2022-03-06] MEDS: Levothyroxine Sodium 50 MCG TABLET PO (05:51)
[2022-03-06 07:40] VITALS: BP 180/86; PULSE 63; RESP 16; TEMP 36.4; O2SAT 98
[2022-03-06] MEDS: Divalproex Sodium 250 MG TABLET.DR PO (07:50)
[2022-03-06] MEDS: amLODIPine Besylate 10 MG TABLET PO (07:50)
[2022-03-06] MEDS: carvediloL 12.5 MG TABLET PO ×2 (07:50→20:57)
[2022-03-06] MEDS: Atorvastatin Calcium 80 MG TABLET PO (07:51)
[2022-03-06] MEDS: hydroCHLOROthiazide 25 MG TABLET PO (07:51)
[2022-03-06] MEDS: Sertraline HCL 50 MG TABLET PO (07:51)
[2022-03-06] MEDS: Nystatin Powder 15 GM BOTTLE 1 APPL TOPICAL (10:56)
--- NOTE | 2022-03-06 13:37 | P.PNPSI_ITS ---
Subjective Subjective Date of Service: 03/06/22 Reason For Visit: depression, anxiety, alzheimers Subjective Notes: Conditional Voluntary Interim History: The nursing staff reported the patient had been brighter, oriented to person, compliant with treatment. The social service worker reported the member rear for discharge the [facility] application that is still in process. On interview the patient denies new symptoms she is pleasant and cooperative, attending to groups. Mental Status Exam Mental Status Exam Patient Appearance: Well Grooomed Patient Orientation: Person and Situation Level of Consciousness: Awake Patient Behavior: Cooperative Mood Description: Withdrawn Affect Description: Constricted Patient Cognition Impaired: Yes Ability to Follow Directions: Good Speech Pattern: Clear Hallucinations: None Delusions: Not Present Thought Process: Distracted Thought Content: positive for Circumstantial Judgement: Fair Diagnostics Vital Signs (24Hr): Vital Signs - 24 hr 03/05/22 18:00 03/06/22 07:40 Temperature 98.0 F 97.6 F Pulse Rate 69 63 Respiratory Rate 17 16 Blood Pressure 160/73 H 180/86 H Pulse Oximetry 97 98 Oxygen Delivery Method Room Air Room Air BMI result Body Mass Index 29.1 Labs Results: 02/28/22 07:59 03/05/22 07:44 Labs: Laboratory Results - last 48 hr 03/05/22 07:44 Sodium 141 Potassium 3.6 Chloride 99 Carbon Dioxide 30 H Anion Gap 16 BUN 27 H Creatinine 1.17 Estim Creat Clear Calc 43.4 Estimated GFR 46 Fasting Glucose 104 H Calcium 9.2 Magnesium 2.0 Imaging Radiology Impressions: ITS Impressions Head CT 02/06/22 15:04 IMPRESSION: No acute intracranial hemorrhage or territorial infarction. Progressed moderate generalized parenchymal volume loss and mild to moderate chronic white matter microangiopathy. 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 Head CT 02/26/22 10:52 IMPRESSION: No acute intracranial hemorrhage or territorial infarction. Stable diffuse parenchymal volume loss and [id number] chronic white matter microangiopathy. Incompletely visualized moderate left maxillary sinus disease with chronic sclerotic wall thickening. 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 No evidence of acute territorial infarct. No intracranial mass effect or hydrocephalus. Medications Medications Current Medications Acetaminophen (Acetaminophen 325 Mg Tablet) 650 mg PO Q6H PRN PRN Reason: Headache/Pain Mild Scale (1-3) Last Admin: 02/26/22 09:54 Dose: 650 mg Al Hydroxide/Mg Hydroxide (Magnesium Hydrox/Alum Hydrox 30 Ml Oral.Susp) 30 ml PO Q6H PRN PRN Reason: Heartburn/Nausea Amlodipine Besylate (Amlodipine Besylate 10 Mg Tablet) 10 mg PO DAILY [facility]; Protocol Last Admin: 03/06/22 07:50 Dose: 10 mg Artificial Tears (Artificial Tears 15 Ml Drops) 1 drop EYE-BOTH Q4H PRN PRN Reason: dry eyes Atorvastatin Calcium (Atorvastatin Calcium 80 Mg Tablet) 80 mg PO DAILY [facility] Last Admin: 03/06/22 07:51 Dose: 80 mg Carvedilol (Carvedilol 12.5 Mg Tablet) 12.5 mg PO BID [facility]; Protocol Last Admin: 03/06/22 07:50 Dose: 12.5 mg Divalproex Sodium (Divalproex Sodium 250 Mg Tablet.) 250 mg PO DAILY [facility] Last Admin: 03/06/22 07:50 Dose: 250 mg Divalproex Sodium (Divalproex Sodium 500 Mg Tablet.) 500 mg PO BEDTIME [facility] Last Admin: 03/05/22 21:02 Dose: 500 mg Donepezil HCl (Donepezil Hcl 10 Mg Tablet) 10 mg PO BEDTIME [facility] Last Admin: 03/05/22 21:02 Dose: 10 mg Guaifenesin/Dextromethorphan (Guaifenesin Dm 100/10/5 Ml 5 Ml Syrup) 10 ml PO Q4H PRN PRN Reason: cough Hydrochlorothiazide (Hydrochlorothiazide 25 Mg Tablet) 25 mg PO DAILY [facility]; Protocol Last Admin: 03/06/22 07:51 Dose: 25 mg Hydroxyzine HCl (Hydroxyzine Hcl 25 Mg Tablet) 25 mg PO Q6H PRN PRN Reason: Anxiety Last Admin: 02/27/22 20:41 Dose: 25 mg Levothyroxine Sodium (Levothyroxine Sodium 50 Mcg Tablet) 50 mcg PO DAILY@0600 [facility] Last Admin: 03/06/22 05:51 Dose: 50 mcg Magnesium Hydroxide (Milk Of Magnesia 30 Ml Oral.Susp) 30 ml PO DAILY PRN PRN Reason: Constipation Melatonin (Melatonin 3 Mg Tablet) 6 mg PO BEDTIME [facility] Last Admin: 03/05/22 21:01 Dose: 6 mg Melatonin (Melatonin 3 Mg Tablet) 3 mg PO BEDTIME PRN PRN Reason: insomnia Last Admin: 03/01/22 20:32 Dose: 3 mg Nystatin (Nystatin Powder 15 Gm Bottle) 1 appl TOPICAL BID [facility]; Protocol Last Admin: 03/06/22 10:56 Dose: 1 appl Polyethylene Glycol (Polyethylene Glycol 3350 17 Gm Powd.Pack) 17 gm PO DAILY PRN PRN Reason: constipation Quetiapine Fumarate (Quetiapine Fumarate 50 Mg Tablet) 50 mg PO BEDTIME [facility] Last Admin: 03/05/22 21:02 Dose: 50 mg Senna/Docusate Sodium (Sennosides/Docusate Sodium Tablet) 1 tab PO DAILY PRN PRN Reason: constipation Sertraline HCl (Sertraline Hcl 50 Mg Tablet) 50 mg PO DAILY [facility] Last Admin: 03/06/22 07:51 Dose: 50 mg Trazodone HCl (Trazodone Hcl 50 Mg Tablet) 50 mg PO BEDTIME PRN PRN Reason: Insomnia Last Admin: 02/27/22 20:42 Dose: 50 mg Allergies Allergies Allergy/AdvReac Type Severity Reaction Status Date / Time No Known Allergies Allergy Verified 02/05/22 21:09 Assessment & Plan Assessment & Plan (1) Dementia: Status: Acute Code(s): F03.90 - Unspecified dementia, unspecified severity, without behavioral disturbance, psychotic disturbance, mood disturbance, and anxiety Assessment and Plan: Staff reports alteration in mental status in the last 2 days with decreased ab ility to function and listing to the left side. Rule out right parietal infarct. Recommendation: MRI of the brain without contrast. Waking EEG. (2) Bipolar disorder: Status: Acute Code(s): F31.9 - Bipolar disorder, unspecified Plan the patient is an elderly female with a past history of bipolar disorder, dementia Alzheimer's type for the last 6 months, admitted for recent exacerbation of psychosis and violent behavior.? Very poor historian unable to provide more information.? Continue current treatment plan: 1. PT consult ordered 2.. Gather collateral information.? 3. Continue with regular medications.? 4. Discharge to assisted [facility] facility [facility] when ready 5. Increased Aricept to 10 mg p.o. q.h.s. on 02/15 6. Monitor BP 7. MRI and EEG ordered. We will follow the EEG results under was no seizure activity. 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 8. Continue recommendations of blood pressure medication as per hospitalist. I spent ___20___ minutes with the patient and/or on the patient floor today, greater than?50% of which was spent counseling/coordinating care. Reason for contiued inpatient stay Substantial Risk for: inability to function, rapid decompensation and med/psych decompensation
[2022-03-06 18:00] VITALS: BP 166/72; PULSE 65; RESP 16; TEMP 36.5; O2SAT 94
[2022-03-06] MEDS: Divalproex Sodium 500 MG TABLET.DR PO (20:56)
[2022-03-06] MEDS: QUEtiapine Fumarate 50 MG TABLET PO (20:57)
[2022-03-06] MEDS: Donepezil HCl 10 MG TABLET PO (20:57)
[2022-03-06] MEDS: Melatonin 3 MG TABLET 6 MG PO (20:57)
[2022-03-07] MEDS: Levothyroxine Sodium 50 MCG TABLET PO (05:53)
[2022-03-07 08:00] VITALS: BP 144/71; PULSE 61; RESP 16; TEMP 36.5; O2SAT 96
[2022-03-07] MEDS: Atorvastatin Calcium 80 MG TABLET PO (08:32)
[2022-03-07] MEDS: hydroCHLOROthiazide 25 MG TABLET PO (08:32)
[2022-03-07] MEDS: amLODIPine Besylate 10 MG TABLET PO (08:32)
[2022-03-07] MEDS: Sertraline HCL 50 MG TABLET PO (08:33)
[2022-03-07] MEDS: carvediloL 12.5 MG TABLET PO ×2 (08:33→20:21)
[2022-03-07] MEDS: Divalproex Sodium 250 MG TABLET.DR PO (08:33)
[2022-03-07] MEDS: Nystatin Powder 15 GM BOTTLE 1 APPL TOPICAL (11:38)
--- NOTE | 2022-03-07 16:15 | HO.PSYCHPN ---
Subjective Subjective Date of Service: 03/07/22 Reason For Visit: depression, anxiety, alzheimers Subjective Notes: Conditional Voluntary Interim History: The nursing staff reported the patient had been compliant with treatment, she slept very well and she is visible in the unit. she was in to be sarcastic at times with peers and staff. 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 Mental Status Exam Mental Status Exam Patient Appearance: Well Grooomed Patient Orientation: Person and Situation Level of Consciousness: Awake Patient Behavior: Cooperative Mood Description: Constricted Affect Description: Constricted Patient Cognition Impaired: Yes Ability to Follow Directions: Good Speech Pattern: Clear Hallucinations: None Delusions: Not Present Thought Process: Distracted Thought Content: positive for [place] and positive for Circumstantial Judgement: Fair Diagnostics Vital Signs (24Hr): Vital Signs - 24 hr 03/06/22 18:00 03/07/22 08:00 Temperature 97.7 F 97.7 F Pulse Rate 65 61 Respiratory Rate 16 16 Blood Pressure 166/72 H 144/71 H Pulse Oximetry 94 96 Oxygen Delivery Method Room Air Room Air BMI result Body Mass Index 29.1 Labs Results: 02/28/22 07:59 03/05/22 07:44 Imaging Radiology Impressions: ITS Impressions Head CT 02/06/22 15:04 IMPRESSION: No acute intracranial hemorrhage or territorial infarction. Progressed moderate generalized parenchymal volume loss and mild to moderate chronic white matter microangiopathy. 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 Head CT 02/26/22 10:52 IMPRESSION: No acute intracranial hemorrhage or territorial infarction. Stable diffuse parenchymal volume loss and [id number] chronic white matter microangiopathy. Incompletely visualized moderate left maxillary sinus disease with chronic sclerotic wall thickening. 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 No evidence of acute territorial infarct. No intracranial mass effect or hydrocephalus. Medications Medications Current Medications Acetaminophen (Acetaminophen 325 Mg Tablet) 650 mg PO Q6H PRN PRN Reason: Headache/Pain Mild Scale (1-3) Last Admin: 02/26/22 09:54 Dose: 650 mg Al Hydroxide/Mg Hydroxide (Magnesium Hydrox/Alum Hydrox 30 Ml Oral.Susp) 30 ml PO Q6H PRN PRN Reason: Heartburn/Nausea Amlodipine Besylate (Amlodipine Besylate 10 Mg Tablet) 10 mg PO DAILY [facility]; Protocol Last Admin: 03/07/22 08:32 Dose: 10 mg Artificial Tears (Artificial Tears 15 Ml Drops) 1 drop EYE-BOTH Q4H PRN PRN Reason: dry eyes Atorvastatin Calcium (Atorvastatin Calcium 80 Mg Tablet) 80 mg PO DAILY [facility] Last Admin: 03/07/22 08:32 Dose: 80 mg Carvedilol (Carvedilol 12.5 Mg Tablet) 12.5 mg PO BID [facility]; Protocol Last Admin: 03/07/22 08:33 Dose: 12.5 mg Divalproex Sodium (Divalproex Sodium 250 Mg Tablet.Dr) 250 mg PO DAILY [facility] Last Admin: 03/07/22 08:33 Dose: 250 mg Divalproex Sodium (Divalproex Sodium 500 Mg Tablet.) 500 mg PO BEDTIME [facility] Last Admin: 03/06/22 20:56 Dose: 500 mg Donepezil HCl (Donepezil Hcl 10 Mg Tablet) 10 mg PO BEDTIME [facility] Last Admin: 03/06/22 20:57 Dose: 10 mg Guaifenesin/Dextromethorphan (Guaifenesin Dm 100/10/5 Ml 5 Ml Syrup) 10 ml PO Q4H PRN PRN Reason: cough Hydrochlorothiazide (Hydrochlorothiazide 25 Mg Tablet) 25 mg PO DAILY [facility]; Protocol Last Admin: 03/07/22 08:32 Dose: 25 mg Hydroxyzine HCl (Hydroxyzine Hcl 25 Mg Tablet) 25 mg PO Q6H PRN PRN Reason: Anxiety Last Admin: 02/27/22 20:41 Dose: 25 mg Levothyroxine Sodium (Levothyroxine Sodium 50 Mcg Tablet) 50 mcg PO DAILY@0600 [facility] Last Admin: 03/07/22 05:53 Dose: 50 mcg Magnesium Hydroxide (Milk Of Magnesia 30 Ml Oral.Susp) 30 ml PO DAILY PRN PRN Reason: Constipation Melatonin (Melatonin 3 Mg Tablet) 6 mg PO BEDTIME [facility] Last Admin: 03/06/22 20:57 Dose: 6 mg Melatonin (Melatonin 3 Mg Tablet) 3 mg PO BEDTIME PRN PRN Reason: insomnia Last Admin: 03/01/22 20:32 Dose: 3 mg Nystatin (Nystatin Powder 15 Gm Bottle) 1 appl TOPICAL BID [facility]; Protocol Last Admin: 03/07/22 11:38 Dose: 1 appl Polyethylene Glycol (Polyethylene Glycol 3350 17 Gm Powd.Pack) 17 gm PO DAILY PRN PRN Reason: constipation Quetiapine Fumarate (Quetiapine Fumarate 50 Mg Tablet) 50 mg PO BEDTIME [facility] Last Admin: 03/06/22 20:57 Dose: 50 mg Senna/Docusate Sodium (Sennosides/Docusate Sodium Tablet) 1 tab PO DAILY PRN PRN Reason: constipation Sertraline HCl (Sertraline Hcl 50 Mg Tablet) 50 mg PO DAILY [facility] Last Admin: 03/07/22 08:33 Dose: 50 mg Trazodone HCl (Trazodone Hcl 50 Mg Tablet) 50 mg PO BEDTIME PRN PRN Reason: Insomnia Last Admin: 02/27/22 20:42 Dose: 50 mg Allergies Allergies Allergy/AdvReac Type Severity Reaction Status Date / Time No Known Allergies Allergy Verified 02/05/22 21:09 Assessment & Plan Assessment & Plan (1) Dementia: Status: Acute Code(s): F03.90 - Unspecified dementia, unspecified severity, without behavioral disturbance, psychotic disturbance, mood disturbance, and anxiety Assessment and Plan: Staff reports alteration in mental status in the last 2 days with decreased ability to function and listing to the left side. Rule out right parietal infarct. Recommendation: MRI of the brain without contrast. Waking EEG. (2) Bipolar disorder: Status: Acute Code(s): F31.9 - Bipolar disorder, unspecified Plan the patient is an elderly female with a past history of bipolar disorder, dementia Alzheimer's type for the last 6 months, admitted for recent exacerbation of psychosis and violent behavior.? Very poor historian unable to provide more information.? Continue current treatment plan: 1. PT consult ordered 2.. Gather collateral information.? 3. Continue with regular medications.? 4. Discharge to assisted living facility Or custodial facility when ready 5. Increased Aricept to 10 mg p.o. q.h.s. on 02/15 6. Monitor BP 7. MRI and EEG ordered. We will follow the EEG results under was no seizure activity. 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 8. Continue recommendations of blood pressure medication as per hospitalist. 9. Waiting for placement I spent __20____ minutes with the patient and/or on the patient floor today, greater than?50% of which was spent counseling/coordinating care. Reason for contiued inpatient stay Substantial Risk for: inability to function, rapid decompensation and med/psych decompensation
[2022-03-07 18:00] VITALS: BP 165/79; PULSE 65; RESP 14; TEMP 36.1; O2SAT 97
[2022-03-07] MEDS: Melatonin 3 MG TABLET 6 MG PO (20:21)
[2022-03-07] MEDS: Divalproex Sodium 500 MG TABLET.DR PO (20:21)
[2022-03-07] MEDS: Donepezil HCl 10 MG TABLET PO (20:21)
[2022-03-07] MEDS: traZODone HCL 50 MG TABLET PO (20:22)
[2022-03-07] MEDS: QUEtiapine Fumarate 50 MG TABLET PO (20:22)
[2022-03-08 06:00] VITALS: BP 144/78; PULSE 70; RESP 16; TEMP 36.3; O2SAT 94
[2022-03-08] MEDS: Levothyroxine Sodium 50 MCG TABLET PO (06:03)
[2022-03-08 07:00] VITALS: BMI 28.5
[2022-03-08] MEDS: Divalproex Sodium 250 MG TABLET.DR PO (09:45)
[2022-03-08] MEDS: carvediloL 12.5 MG TABLET PO ×2 (09:45→20:24)
[2022-03-08] MEDS: Sertraline HCL 50 MG TABLET PO (09:45)
[2022-03-08] MEDS: Atorvastatin Calcium 80 MG TABLET PO (09:45)
[2022-03-08] MEDS: hydroCHLOROthiazide 25 MG TABLET PO (09:46)
[2022-03-08] MEDS: amLODIPine Besylate 10 MG TABLET PO (09:46)
--- NOTE | 2022-03-08 16:23 | HO.PSYCHPN ---
Subjective Subjective Date of Service: 03/08/22 Reason For Visit: depression, anxiety, alzheimers Interim History: Patient sitting calmly in day room. Patient says I am fine however she reports auditory hallucinations that are on and off throughout the day. She says she is trying to distract herself which sometimes works. Discussed medications and she would like to remain on current regimen for now. Sleep is getting a little better. Mental Status Exam Mental Status Exam Patient Appearance: Well Grooomed Patient Orientation: Person and Situation Level of Consciousness: Awake and Appropriate Patient Behavior: Cooperative Mood Description: Constricted Affect Description: Constricted Patient Cognition Impaired: Yes Ability to Follow Directions: Good Speech Pattern: Clear and Appropriate Hallucinations: Auditory Delusions: Not Present Thought Process: Goal Oriented Thought Content: positive for [place] and positive for Goal Oriented (on dealing with AH) Judgement: Fair Diagnostics Vital Signs (24Hr): Vital Signs - 24 hr 03/07/22 18:00 03/08/22 06:00 Temperature 97 F 97.3 F Pulse Rate 65 70 Respiratory Rate 14 16 Blood Pressure 165/79 H 144/78 H Pulse Oximetry 97 94 Oxygen Delivery Method Room Air Room Air BMI result Body Mass Index 28.5 Labs Results: 02/28/22 07:59 03/05/22 07:44 Imaging Radiology Impressions: ITS Impressions Head CT 02/06/22 15:04 IMPRESSION: No acute intracranial hemorrhage or territorial infarction. Progressed moderate generalized parenchymal volume loss and mild to moderate chronic white matter microangiopathy. 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 Head CT 02/26/22 10:52 IMPRESSION: No acute intracranial hemorrhage or territorial infarction. Stable diffuse parenchymal volume loss and [id number] chronic white matter microangiopathy. Incompletely visualized moderate left maxillary sinus disease with chronic sclerotic wall thickening. 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 No evidence of acute territorial infarct. No intracranial mass effect or hydrocephalus. Medications Medications Current Medications Acetaminophen (Acetaminophen 325 Mg Tablet) 650 mg PO Q6H PRN PRN Reason: Headache/Pain Mild Scale (1-3) Last Admin: 02/26/22 09:54 Dose: 650 mg Al Hydroxide/Mg Hydroxide (Magnesium Hydrox/Alum Hydrox 30 Ml Oral.Susp) 30 ml PO Q6H PRN PRN Reason: Heartburn/Nausea Amlodipine Besylate (Amlodipine Besylate 10 Mg Tablet) 10 mg PO DAILY ON LICENSE OF [facility]; Protocol Last Admin: 03/08/22 09:46 Dose: 10 mg Artificial Tears (Artificial Tears 15 Ml Drops) 1 drop EYE-BOTH Q4H PRN PRN Reason: dry eyes Atorvastatin Calcium (Atorvastatin Calcium 80 Mg Tablet) 80 mg PO DAILY ON LICENSE OF [facility] Last Admin: 03/08/22 09:45 Dose: 80 mg Carvedilol (Carvedilol 12.5 Mg Tablet) 12.5 mg PO BID ON LICENSE OF [facility]; Protocol Last Admin: 03/08/22 09:45 Dose: 12.5 mg Divalproex Sodium (Divalproex Sodium 250 Mg Tablet.) 250 mg PO DAILY ON LICENSE OF [facility] Last Admin: 03/08/22 09:45 Dose: 250 mg Divalproex Sodium (Divalproex Sodium 500 Mg Tablet.) 500 mg PO BEDTIME ON LICENSE OF [facility] Last Admin: 03/07/22 20:21 Dose: 500 mg Donepezil HCl (Donepezil Hcl 10 Mg Tablet) 10 mg PO BEDTIME ON LICENSE OF [facility] Last Admin: 03/07/22 20:21 Dose: 10 mg Guaifenesin/Dextromethorphan (Guaifenesin Dm 100/10/5 Ml 5 Ml Syrup) 10 ml PO Q4H PRN PRN Reason: cough Hydrochlorothiazide (Hydrochlorothiazide 25 Mg Tablet) 25 mg PO DAILY ON LICENSE OF [facility]; Protocol Last Admin: 03/08/22 09:46 Dose: 25 mg Hydroxyzine HCl (Hydroxyzine Hcl 25 Mg Tablet) 25 mg PO Q6H PRN PRN Reason: Anxiety Last Admin: 02/27/22 20:41 Dose: 25 mg Levothyroxine Sodium (Levothyroxine Sodium 50 Mcg Tablet) 50 mcg PO DAILY@0600 ON LICENSE OF [facility] Last Admin: 03/08/22 06:03 Dose: 50 mcg Magnesium Hydroxide (Milk Of Magnesia 30 Ml Oral.Susp) 30 ml PO DAILY PRN PRN Reason: Constipation Melatonin (Melatonin 3 Mg Tablet) 6 mg PO BEDTIME ON LICENSE OF [facility] Last Admin: 03/07/22 20:21 Dose: 6 mg Melatonin (Melatonin 3 Mg Tablet) 3 mg PO BEDTIME PRN PRN Reason: insomnia Last Admin: 03/01/22 20:32 Dose: 3 mg Nystatin (Nystatin Powder 15 Gm Bottle) 1 appl TOPICAL BID [facility]; Protocol Last Admin: 03/08/22 09:48 Dose: Not Given Polyethylene Glycol (Polyethylene Glycol 3350 17 Gm Powd.Pack) 17 gm PO DAILY PRN PRN Reason: constipation Quetiapine Fumarate (Quetiapine Fumarate 50 Mg Tablet) 50 mg PO BEDTIME [facility] Last Admin: 03/07/22 20:22 Dose: 50 mg Senna/Docusate Sodium (Sennosides/Docusate Sodium Tablet) 1 tab PO DAILY PRN PRN Reason: constipation Sertraline HCl (Sertraline Hcl 50 Mg Tablet) 50 mg PO DAILY [facility] Last Admin: 03/08/22 09:45 Dose: 50 mg Trazodone HCl (Trazodone Hcl 50 Mg Tablet) 50 mg PO BEDTIME PRN PRN Reason: Insomnia Last Admin: 03/07/22 20:22 Dose: 50 mg Allergies Allergies Allergy/AdvReac Type Severity Reaction Status Date / Time No Known Allergies Allergy Verified 02/05/22 21:09 Assessment & Plan Assessment & Plan (1) Dementia: Status: Acute Code(s): F03.90 - Unspecified dementia, unspecified severity, without behavioral disturbance, psychotic disturbance, mood disturbance, and anxiety Assessment and Plan: Staff reports alteration in mental status in the last 2 days with decreased ability to function and listing to the left side. Rule out right parietal infarct. Recommendation: MRI of the brain without contrast. Waking EEG. (2) Bipolar disorder: Status: Acute Code(s): F31.9 - Bipolar disorder, unspecified Plan the patient is an elderly female with a past history of bipolar disorder, dementia Alzheimer's type for the last 6 months, admitted for recent exacerbation of psychosis and violent behavior.? Very poor historian unable to provide more information.? 03/08 Continue current treatment plan PLAN: 1. PT consult ordered 2.. Gather collateral information.? 3. Continue with regular medications.? 4. Discharge to assisted living facility Or senior living facility when ready 5. Increased Aricept to 10 mg p.o. q.h.s. on 02/15 6. Monitor BP 7. MRI and EEG ordered. We will follow the EEG results under was no seizure activity. 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 8. Continue recommendations of blood pressure medication as per hospitalist. 9. Waiting for placement I spent minutes with the patient and/or on the patient floor today, greater than?50% of which was spent counseling/coordinating care. Patient educated on: diagnosis and medication risk/benefits Informed Consent: understands Reason for contiued inpatient stay Substantial Risk for: med/psych decompensation
[2022-03-08 18:00] VITALS: BP 158/70; PULSE 65; RESP 18; TEMP 36.3; O2SAT 97
[2022-03-08] MEDS: Acetaminophen 325 MG TABLET 650 MG PO (20:23)
[2022-03-08] MEDS: Divalproex Sodium 500 MG TABLET.DR PO (20:24)
[2022-03-08] MEDS: Melatonin 3 MG TABLET 6 MG PO (20:24)
[2022-03-08] MEDS: Melatonin 3 MG TABLET PO (20:25)
[2022-03-08] MEDS: QUEtiapine Fumarate 50 MG TABLET PO (20:25)
[2022-03-08] MEDS: Donepezil HCl 10 MG TABLET PO (20:25)
[2022-03-08] MEDS: traZODone HCL 50 MG TABLET PO (20:26)
[2022-03-09] MEDS: Levothyroxine Sodium 50 MCG TABLET PO (06:01)
[2022-03-09] MEDS: carvediloL 12.5 MG TABLET PO ×2 (10:10→20:07)
[2022-03-09] MEDS: hydroCHLOROthiazide 25 MG TABLET PO (10:10)
[2022-03-09] MEDS: Sertraline HCL 50 MG TABLET PO (10:10)
[2022-03-09] MEDS: Atorvastatin Calcium 80 MG TABLET PO (10:10)
[2022-03-09] MEDS: amLODIPine Besylate 10 MG TABLET PO (10:10)
[2022-03-09] MEDS: Divalproex Sodium 250 MG TABLET.DR PO (10:10)
--- NOTE | 2022-03-09 15:56 | P.PNPSI_ITS ---
Subjective Subjective Date of Service: 03/09/22 Reason For Visit: depression, anxiety, alzheimers Subjective Notes: Conditional Voluntary Interim History: The nursing staff reported the patient slept 8 hours, she has been fully compliant with treatment. On interview she denies new symptoms, she is waiting for placement. Mental Status Exam Mental Status Exam Patient Appearance: Well Grooomed Patient Orientation: Person and Situation Level of Consciousness: Awake Patient Behavior: Cooperative Mood Description: Withdrawn Affect Description: Constricted Patient Cognition Impaired: Yes Ability to Follow Directions: Good Speech Pattern: Clear Hallucinations: None Delusions: Not Present Thought Process: Distracted Thought Content: positive for [place] and positive for Circumstantial Judgement: Fair Diagnostics Vital Signs (24Hr): Vital Signs - 24 hr 03/08/22 18:00 Temperature 97.3 F Pulse Rate 65 Respiratory Rate 18 Blood Pressure 158/70 H Pulse Oximetry 97 Oxygen Delivery Method Room Air BMI result Body Mass Index 28.5 Labs Results: 02/28/22 07:59 03/05/22 07:44 Imaging Radiology Impressions: ITS Impressions Head CT 02/06/22 15:04 IMPRESSION: No acute intracranial hemorrhage or territorial infarction. Progressed moderate generalized parenchymal volume loss and mild to moderate chronic white matter microangiopathy. 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 Head CT 02/26/22 10:52 IMPRESSION: No acute intracranial hemorrhage or territorial infarction. Stable diffuse parenchymal volume loss and [id number] chronic white matter microangiopathy. Incompletely visualized moderate left maxillary sinus disease with chronic sclerotic wall thickening. 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 No evidence of acute territorial infarct. No intracranial mass effect or hydrocephalus. Medications Medications Current Medications Acetaminophen (Acetaminophen 325 Mg Tablet) 650 mg PO Q6H PRN PRN Reason: Headache/Pain Mild Scale (1-3) Last Admin: 03/08/22 20:23 Dose: 650 mg Al Hydroxide/Mg Hydroxide (Magnesium Hydrox/Alum Hydrox 30 Ml Oral.Susp) 30 ml PO Q6H PRN PRN Reason: Heartburn/Nausea Amlodipine Besylate (Amlodipine Besylate 10 Mg Tablet) 10 mg PO DAILY [facility]; Protocol Last Admin: 03/09/22 10:10 Dose: 10 mg Artificial Tears (Artificial Tears 15 Ml Drops) 1 drop EYE-BOTH Q4H PRN PRN Reason: dry eyes Atorvastatin Calcium (Atorvastatin Calcium 80 Mg Tablet) 80 mg PO DAILY [facility] Last Admin: 03/09/22 10:10 Dose: 80 mg Carvedilol (Carvedilol 12.5 Mg Tablet) 12.5 mg PO BID [facility]; Protocol Last Admin: 03/09/22 10:10 Dose: 12.5 mg Divalproex Sodium (Divalproex Sodium 250 Mg Tablet.Dr) 250 mg PO DAILY [facility] Last Admin: 03/09/22 10:10 Dose: 250 mg Divalproex Sodium (Divalproex Sodium 500 Mg Tablet.Dr) 500 mg PO BEDTIME [facility] Last Admin: 03/08/22 20:24 Dose: 500 mg Donepezil HCl (Donepezil Hcl 10 Mg Tablet) 10 mg PO BEDTIME [facility] Last Admin: 03/08/22 20:25 Dose: 10 mg Guaifenesin/Dextromethorphan (Guaifenesin Dm 100/10/5 Ml 5 Ml Syrup) 10 ml PO Q4H PRN PRN Reason: cough Hydrochlorothiazide (Hydrochlorothiazide 25 Mg Tablet) 25 mg PO DAILY [facility]; Protocol Last Admin: 03/09/22 10:10 Dose: 25 mg Hydroxyzine HCl (Hydroxyzine Hcl 25 Mg Tablet) 25 mg PO Q6H PRN PRN Reason: Anxiety Last Admin: 02/27/22 20:41 Dose: 25 mg Levothyroxine Sodium (Levothyroxine Sodium 50 Mcg Tablet) 50 mcg PO DAILY@0600 [facility] Last Admin: 03/09/22 06:01 Dose: 50 mcg Magnesium Hydroxide (Milk Of Magnesia 30 Ml Oral.Susp) 30 ml PO DAILY PRN PRN Reason: Constipation Melatonin (Melatonin 3 Mg Tablet) 6 mg PO BEDTIME [facility] Last Admin: 03/08/22 20:24 Dose: 6 mg Melatonin (Melatonin 3 Mg Tablet) 3 mg PO BEDTIME PRN PRN Reason: insomnia Last Admin: 03/08/22 20:25 Dose: 3 mg Nystatin (Nystatin Powder 15 Gm Bottle) 1 appl TOPICAL BID [facility]; Protocol Last Admin: 03/09/22 10:10 Dose: Not Given Polyethylene Glycol (Polyethylene Glycol 3350 17 Gm Powd.Pack) 17 gm PO DAILY PRN PRN Reason: constipation Quetiapine Fumarate (Quetiapine Fumarate 50 Mg Tablet) 50 mg PO BEDTIME [facility] Last Admin: 03/08/22 20:25 Dose: 50 mg Senna/Docusate Sodium (Sennosides/Docusate Sodium Tablet) 1 tab PO DAILY PRN PRN Reason: constipation Sertraline HCl (Sertraline Hcl 50 Mg Tablet) 50 mg PO DAILY [facility] Last Admin: 03/09/22 10:10 Dose: 50 mg Trazodone HCl (Trazodone Hcl 50 Mg Tablet) 50 mg PO BEDTIME PRN PRN Reason: Insomnia Last Admin: 03/08/22 20:26 Dose: 50 mg Allergies Allergies Allergy/AdvReac Type Severity Reaction Status Date / Time No Known Allergies Allergy Verified 02/05/22 21:09 Assessment & Plan Assessment & Plan (1) Dementia: Status: Acute Code(s): F03.90 - Unspecified dementia, unspecified severity, without behavioral disturbance, psychotic disturbance, mood disturbance, and anxiety Assessment and Plan: Staff reports alteration in mental status in the last 2 days with decreased ability to function and listing to the left side. Rule out right parietal infarct. Recommendation: MRI of the brain without contrast. Waking EEG. (2) Bipolar disorder: Status: Acute Code(s): F31.9 - Bipolar disorder, unspecified Plan the patient is an elderly female with a past history of bipolar disorder, dementia Alzheimer's type for the last 6 months, admitted for recent exacerbation of psychosis and violent behavior.? Very poor historian unable to provide more information.? Continue current treatment plan: 1. PT consult ordered 2.. Gather collateral information.? 3. Continue with regular medications.? 4. Discharge to assisted living facility Or [facility] facility when ready 5. Increased Aricept to 10 mg p.o. q.h.s. on 02/15 6. Monitor BP 7. MRI and EEG ordered. We will follow the EEG results were normal no seizure activity. 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 8. Continue recommendations of blood pressure medication as per hospitalist. 9. Waiting for placement I spent ___20___ minutes with the patient and/or on the patient floor today, greater than?50% of which was spent counseling/coordinating care. Reason for contiued inpatient stay Substantial Risk for: inability to function, rapid decompensation and med/psych decompensation
[2022-03-09 18:00] VITALS: BP 117/66; PULSE 61; RESP 18; TEMP 36.4; O2SAT 93
[2022-03-09] MEDS: Donepezil HCl 10 MG TABLET PO (20:06)
[2022-03-09] MEDS: QUEtiapine Fumarate 50 MG TABLET PO (20:06)
[2022-03-09] MEDS: Divalproex Sodium 500 MG TABLET.DR PO (20:06)
[2022-03-09] MEDS: Melatonin 3 MG TABLET 6 MG PO (20:07)
[2022-03-09] MEDS: Nystatin Powder 15 GM BOTTLE 1 APPL TOPICAL (20:12)
--- NOTE | 2022-03-10 00:44 | P.PNPSI_ITS ---
Subjective Subjective Date of Service: 03/10/22 Reason For Visit: depression, anxiety, alzheimers Interim History: Discussed with team, pt is awaiting placement, doing better. She has no qu estions or concerns, sleep is good, denies issues with sleep or energy. Her mood is okay. Has no problems with her meds. Medication Compliance: Yes Side effects from medications: No Attending Groups: Intermittent Review of Systems Acute medical concerns: No Medical Review of Systems: unchanged Mental Status Exam Mental Status Exam Narrative: Patient Appearance: Well Grooomed Patient Orientation: Person and Situation Level of Consciousness: Awake Patient Behavior: Cooperative Mood Description: Withdrawn Affect Description: Constricted Ability to Follow Directions: Good Speech Pattern: Clear Hallucinations: Auditory Delusions: Not Present Thought Process: Distracted Thought Content: positive for [place] and positive for Circumstantial Judgement: Fair Diagnostics Vital Signs (24Hr): Vital Signs - 24 hr 03/09/22 18:00 Temperature 97.6 F Pulse Rate 61 Respiratory Rate 18 Blood Pressure 117/66 Pulse Oximetry 93 Oxygen Delivery Method Room Air BMI result Body Mass Index 28.5 Labs Results: 02/28/22 07:59 03/05/22 07:44 Imaging Radiology Impressions: ITS Impressions Head CT 02/06/22 15:04 IMPRESSION: No acute intracranial hemorrhage or territorial infarction. Progressed moderate generalized parenchymal volume loss and mild to moderate chronic white matter microangiopathy. 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 Head CT 02/26/22 10:52 IMPRESSION: No acute intracranial hemorrhage or territorial infarction. Stable diffuse parenchymal volume loss and [id number] chronic white matter microangiopathy. Incompletely visualized moderate left maxillary sinus disease with chronic sclerotic wall thickening. 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 No evidence of acute territorial infarct. No intracranial mass effect or hydrocephalus. Medications Medications Current Medications Acetaminophen (Acetaminophen 325 Mg Tablet) 650 mg PO Q6H PRN PRN Reason: Headache/Pain Mild Scale (1-3) Last Admin: 03/08/22 20:23 Dose: 650 mg Al Hydroxide/Mg Hydroxide (Magnesium Hydrox/Alum Hydrox 30 Ml Oral.Susp) 30 ml PO Q6H PRN PRN Reason: Heartburn/Nausea Amlodipine Besylate (Amlodipine Besylate 10 Mg Tablet) 10 mg PO DAILY [facility]; Protocol Last Admin: 03/09/22 10:10 Dose: 10 mg Artificial Tears (Artificial Tears 15 Ml Drops) 1 drop EYE-BOTH Q4H PRN PRN Reason: dry eyes Atorvastatin Calcium (Atorvastatin Calcium 80 Mg Tablet) 80 mg PO DAILY [facility] Last Admin: 03/09/22 10:10 Dose: 80 mg Carvedilol (Carvedilol 12.5 Mg Tablet) 12.5 mg PO BID [facility]; Protocol Last Admin: 03/09/22 20:07 Dose: 12.5 mg Divalproex Sodium (Divalproex Sodium 250 Mg Tablet.) 250 mg PO DAILY [facility] Last Admin: 03/09/22 10:10 Dose: 250 mg Divalproex Sodium (Divalproex Sodium 500 Mg Tablet.) 500 mg PO BEDTIME [facility] Last Admin: 03/09/22 20:06 Dose: 500 mg Donepezil HCl (Donepezil Hcl 10 Mg Tablet) 10 mg PO BEDTIME [facility] Last Admin: 03/09/22 20:06 Dose: 10 mg Guaifenesin/Dextromethorphan (Guaifenesin Dm 100/10/5 Ml 5 Ml Syrup) 10 ml PO Q4H PRN PRN Reason: cough Hydrochlorothiazide (Hydrochlorothiazide 25 Mg Tablet) 25 mg PO DAILY [facility]; Protocol Last Admin: 03/09/22 10:10 Dose: 25 mg Hydroxyzine HCl (Hydroxyzine Hcl 25 Mg Tablet) 25 mg PO Q6H PRN PRN Reason: Anxiety Last Admin: 02/27/22 20:41 Dose: 25 mg Levothyroxine Sodium (Levothyroxine Sodium 50 Mcg Tablet) 50 mcg PO DAILY@0600 [facility] Last Admin: 03/09/22 06:01 Dose: 50 mcg Magnesium Hydroxide (Milk Of Magnesia 30 Ml Oral.Susp) 30 ml PO DAILY PRN PRN Reason: Constipation Melatonin (Melatonin 3 Mg Tablet) 6 mg PO BEDTIME [facility] Last Admin: 03/09/22 20:07 Dose: 6 mg Melatonin (Melatonin 3 Mg Tablet) 3 mg PO BEDTIME PRN PRN Reason: insomnia Last Admin: 03/08/22 20:25 Dose: 3 mg Nystatin (Nystatin Powder 15 Gm Bottle) 1 appl TOPICAL BID [facility]; Protocol Last Admin: 03/09/22 20:12 Dose: 1 appl Polyethylene Glycol (Polyethylene Glycol 3350 17 Gm Powd.Pack) 17 gm PO DAILY PRN PRN Reason: constipation Quetiapine Fumarate (Quetiapine Fumarate 50 Mg Tablet) 50 mg PO BEDTIME [facility] Last Admin: 03/09/22 20:06 Dose: 50 mg Senna/Docusate Sodium (Sennosides/Docusate Sodium Tablet) 1 tab PO DAILY PRN PRN Reason: constipation Sertraline HCl (Sertraline Hcl 50 Mg Tablet) 50 mg PO DAILY [facility] Last Admin: 03/09/22 10:10 Dose: 50 mg Trazodone HCl (Trazodone Hcl 50 Mg Tablet) 50 mg PO BEDTIME PRN PRN Reason: Insomnia Last Admin: 03/08/22 20:26 Dose: 50 mg Allergies Allergies Allergy/AdvReac Type Severity Reaction Status Date / Time No Known Allergies Allergy Verified 02/05/22 21:09 Assessment & Plan Assessment & Plan (1) Dementia: Status: Acute Code(s): F03.90 - Unspecified dementia, unspecified severity, without behavioral disturbance, psychotic disturbance, mood disturbance, and anxiety Assessment and Plan: Staff reports alteration in mental status in the last 2 days with decreased ability to function and listing to the left side. Rule out right parietal infarct. Recommendation: MRI of the brain without contrast. Waking EEG. (2) Bipolar disorder: Status: Acute Code(s): F31.9 - Bipolar disorder, unspecified Plan the patient is an elderly female with a past history of bipolar disorder, dementia Alzheimer's type for the last 6 months, admitted for recent exacerbation of psychosis and violent behavior.? Very poor historian unable to provide more information.? Continue current treatment plan: 1. PT consult ordered 2.. Gather collateral information.? 3. Continue with regular medications.? 4. Discharge to assisted living facility Or shelter facility when ready 5. Increased Aricept to 10 mg p.o. q.h.s. on 02/15 6. Monitor BP 7. MRI and EEG ordered. We will follow the EEG results were normal no seizure activity. 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 8. Continue recommendations of blood pressure medication as per hospitalist. 9. Waiting for placement I spent minutes with the patient and/or on the patient floor today, greater than?50% of which was spent counseling/coordinating care. Patient educated on: other Reason for contiued inpatient stay Substantial Risk for: inability to function, rapid decompensation and med/psych decompensation
[2022-03-10] MEDS: Levothyroxine Sodium 50 MCG TABLET PO (05:53)
[2022-03-10 06:00] VITALS: BP 142/83; PULSE 58; RESP 18; TEMP 36.5; O2SAT 97
[2022-03-10] MEDS: Sertraline HCL 50 MG TABLET PO (09:13)
[2022-03-10] MEDS: Atorvastatin Calcium 80 MG TABLET PO (09:13)
[2022-03-10] MEDS: amLODIPine Besylate 10 MG TABLET PO (09:13)
[2022-03-10] MEDS: carvediloL 12.5 MG TABLET PO ×2 (09:13→20:35)
[2022-03-10] MEDS: Divalproex Sodium 250 MG TABLET.DR PO (09:13)
[2022-03-10] MEDS: hydroCHLOROthiazide 25 MG TABLET PO (09:14)
[2022-03-10 18:00] VITALS: BP 99/65; PULSE 64; RESP 18; TEMP 35.9; O2SAT 95
[2022-03-10] MEDS: Divalproex Sodium 500 MG TABLET.DR PO (20:35)
[2022-03-10] MEDS: Melatonin 3 MG TABLET 6 MG PO (20:35)
[2022-03-10] MEDS: QUEtiapine Fumarate 50 MG TABLET PO (20:35)
[2022-03-10] MEDS: Donepezil HCl 10 MG TABLET PO (20:36)
--- NOTE | 2022-03-11 01:42 | HO.PSYCHPN ---
Subjective Subjective Date of Service: 03/11/22 Reason For Visit: depression, anxiety, alzheimers Interim History: Discussed with team. No behavioral or mood complaints. Her sleep is good. Spoke with pt, says she is good and I cant think of any questions. No med changes. Mental Status Exam Mental Status Exam Narrative: Patient Appearance: Well Grooomed Patient Orientation: Person and Situation Level of Consciousness: Awake Patient Behavior: Cooperative Mood Description: Withdrawn Affect Description: Constricted Ability to Follow Directions: Good Speech Pattern: Clear Hallucinations: Auditory Delusions: Not Present Thought Process: Distracted Thought Content: positive for [place] and positive for Circumstantial Judgement: Fair Diagnostics Vital Signs (24Hr): Vital Signs - 24 hr 03/10/22 06:00 03/10/22 18:00 Temperature 97.7 F 96.7 F L Pulse Rate 58 64 Respiratory Rate 18 18 Blood Pressure 142/83 H 99/65 Pulse Oximetry 97 95 Oxygen Delivery Method Room Air Room Air BMI result Body Mass Index 28.5 Labs Results: 02/28/22 07:59 03/05/22 07:44 Imaging Radiology Impressions: ITS Impressions Head CT 02/06/22 15:04 IMPRESSION: No acute intracranial hemorrhage or territorial infarction. Progressed moderate generalized parenchymal volume loss and mild to moderate chronic white matter microangiopathy. 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 Head CT 02/26/22 10:52 IMPRESSION: No acute intracranial hemorrhage or territorial infarction. Stable diffuse parenchymal volume loss and [id number] chronic white matter microangiopathy. Incompletely visualized moderate left maxillary sinus disease with chronic sclerotic wall thickening. 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 No evidence of acute territorial infarct. No intracranial mass effect or hydrocephalus. Medications Medications Current Medications Acetaminophen (Acetaminophen 325 Mg Tablet) 650 mg PO Q6H PRN PRN Reason: Headache/Pain Mild Scale (1-3) Last Admin: 03/08/22 20:23 Dose: 650 mg Al Hydroxide/Mg Hydroxide (Magnesium Hydrox/Alum Hydrox 30 Ml Oral.Susp) 30 ml PO Q6H PRN PRN Reason: Heartburn/Nausea Amlodipine Besylate (Amlodipine Besylate 10 Mg Tablet) 10 mg PO DAILY [facility]; Protocol Last Admin: 03/10/22 09:13 Dose: 10 mg Artificial Tears (Artificial Tears 15 Ml Drops) 1 drop EYE-BOTH Q4H PRN PRN Reason: dry eyes Atorvastatin Calcium (Atorvastatin Calcium 80 Mg Tablet) 80 mg PO DAILY [facility] Last Admin: 03/10/22 09:13 Dose: 80 mg Carvedilol (Carvedilol 12.5 Mg Tablet) 12.5 mg PO BID [facility]; Protocol Last Admin: 03/10/22 20:35 Dose: 12.5 mg Divalproex Sodium (Divalproex Sodium 250 Mg Tablet.Dr) 250 mg PO DAILY [facility] Last Admin: 03/10/22 09:13 Dose: 250 mg Divalproex Sodium (Divalproex Sodium 500 Mg Tablet.Dr) 500 mg PO BEDTIME [facility] Last Admin: 03/10/22 20:35 Dose: 500 mg Donepezil HCl (Donepezil Hcl 10 Mg Tablet) 10 mg PO BEDTIME [facility] Last Admin: 03/10/22 20:36 Dose: 10 mg Guaifenesin/Dextromethorphan (Guaifenesin Dm 100/10/5 Ml 5 Ml Syrup) 10 ml PO Q4H PRN PRN Reason: cough Hydrochlorothiazide (Hydrochlorothiazide 25 Mg Tablet) 25 mg PO DAILY [facility]; Protocol Last Admin: 03/10/22 09:14 Dose: 25 mg Hydroxyzine HCl (Hydroxyzine Hcl 25 Mg Tablet) 25 mg PO Q6H PRN PRN Reason: Anxiety Last Admin: 02/27/22 20:41 Dose: 25 mg Levothyroxine Sodium (Levothyroxine Sodium 50 Mcg Tablet) 50 mcg PO DAILY@0600 [facility] Last Admin: 03/10/22 05:53 Dose: 50 mcg Magnesium Hydroxide (Milk Of Magnesia 30 Ml Oral.Susp) 30 ml PO DAILY PRN PRN Reason: Constipation Melatonin (Melatonin 3 Mg Tablet) 6 mg PO BEDTIME [facility] Last Admin: 03/10/22 20:35 Dose: 6 mg Melatonin (Melatonin 3 Mg Tablet) 3 mg PO BEDTIME PRN PRN Reason: insomnia Last Admin: 03/08/22 20:25 Dose: 3 mg Nystatin (Nystatin Powder 15 Gm Bottle) 1 appl TOPICAL BID [facility]; Protocol Last Admin: 03/10/22 22:20 Dose: Not Given Polyethylene Glycol (Polyethylene Glycol 3350 17 Gm Powd.Pack) 17 gm PO DAILY PRN PRN Reason: constipation Quetiapine Fumarate (Quetiapine Fumarate 50 Mg Tablet) 50 mg PO BEDTIME [facility] Last Admin: 03/10/22 20:35 Dose: 50 mg Senna/Docusate Sodium (Sennosides/Docusate Sodium Tablet) 1 tab PO DAILY PRN PRN Reason: constipation Sertraline HCl (Sertraline Hcl 50 Mg Tablet) 50 mg PO DAILY [facility] Last Admin: 03/10/22 09:13 Dose: 50 mg Trazodone HCl (Trazodone Hcl 50 Mg Tablet) 50 mg PO BEDTIME PRN PRN Reason: Insomnia Last Admin: 03/08/22 20:26 Dose: 50 mg Allergies Allergies Allergy/AdvReac Type Severity Reaction Status Date / Time No Known Allergies Allergy Verified 02/05/22 21:09 Assessment & Plan Assessment & Plan (1) Dementia: Status: Acute Code(s): F03.90 - Unspecified dementia, unspecified severity, without behavioral disturbance, psychotic disturbance, mood disturbance, and anxiety Assessment and Plan: Staff reports alteration in mental status in the last 2 days with decreased ability to function and listing to the left side. Rule out right parietal infarct. Recommendation: MRI of the brain without contrast. Waking EEG. (2) Bipolar disorder: Status: Acute Code(s): F31.9 - Bipolar disorder, unspecified Plan the patient is an elderly female with a past history of bipolar disorder, dementia Alzheimer's type for the last 6 months, admitted for recent exacerbation of psychosis and violent behavior.? Very poor historian unable to provide more information.? Continue current treatment plan: 1. PT consult ordered 2.. Gather collateral information.? 3. Continue with regular medications.? 4. Discharge to assisted living facility Or snf facility when ready 5. Increased Aricept to 10 mg p.o. q.h.s. on 02/15 6. Monitor BP 7. MRI and EEG ordered. We will follow the EEG results were normal no seizure activity. 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 8. Continue recommendations of blood pressure medication as per hospitalist. 9. Waiting for placement I spent minutes with the patient and/or on the patient floor today, greater than?50% of which was spent counseling/coordinating care. Patient educated on: other Reason for contiued inpatient stay Substantial Risk for: inability to function, rapid decompensation and med/psych decompensation
[2022-03-11] MEDS: Levothyroxine Sodium 50 MCG TABLET PO (05:47)
[2022-03-11] MEDS: Acetaminophen 325 MG TABLET 650 MG PO (05:51)
[2022-03-11 06:00] VITALS: BP 120/58; PULSE 61; RESP 18; TEMP 36.6; O2SAT 93
[2022-03-11] MEDS: Divalproex Sodium 250 MG TABLET.DR PO (08:32)
[2022-03-11] MEDS: carvediloL 12.5 MG TABLET PO (08:32)
[2022-03-11] MEDS: amLODIPine Besylate 10 MG TABLET PO (08:32)
[2022-03-11] MEDS: Atorvastatin Calcium 80 MG TABLET PO (08:32)
[2022-03-11] MEDS: Sertraline HCL 50 MG TABLET PO (08:32)
[2022-03-11] MEDS: hydroCHLOROthiazide 25 MG TABLET PO (08:33)
[2022-03-11 18:00] VITALS: BP 121/61; PULSE 59; RESP 17; TEMP 36.6; O2SAT 96
[2022-03-11] MEDS: Divalproex Sodium 500 MG TABLET.DR PO (21:13)
[2022-03-11] MEDS: QUEtiapine Fumarate 50 MG TABLET PO (21:14)
[2022-03-11] MEDS: Melatonin 3 MG TABLET 6 MG PO (21:14)
[2022-03-11] MEDS: Donepezil HCl 10 MG TABLET PO (21:15)
[2022-03-12] MEDS: Levothyroxine Sodium 50 MCG TABLET PO (06:19)
[2022-03-12] MEDS: amLODIPine Besylate 10 MG TABLET PO (08:32)
[2022-03-12] MEDS: hydroCHLOROthiazide 25 MG TABLET PO (08:32)
[2022-03-12] MEDS: Divalproex Sodium 250 MG TABLET.DR PO (08:33)
[2022-03-12] MEDS: carvediloL 12.5 MG TABLET PO ×2 (08:33→20:35)
[2022-03-12] MEDS: Sertraline HCL 50 MG TABLET PO (08:33)
[2022-03-12] MEDS: Atorvastatin Calcium 80 MG TABLET PO (08:33)
[2022-03-12] MEDS: Nystatin Powder 15 GM BOTTLE 1 APPL TOPICAL ×2 (10:21→21:03)
--- NOTE | 2022-03-12 11:48 | HO.PSYCHPN ---
Subjective Subjective Date of Service: 03/12/22 Reason For Visit: depression, anxiety, alzheimers Subjective Notes: Conditional Voluntary Interim History: The nursing staff reported the patient had been fully compliant with treatment, her mental status is at baseline, alert and oriented cooperative. 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 On interview the patient denies new symptoms, easily redirectable. Mental Status Exam Mental Status Exam Patient Appearance: Well Grooomed and Appropriate Patient Orientation: Person and Situation Level of Consciousness: Awake Patient Behavior: Cooperative and Passive Mood Description: Calm Affect Description: Constricted Patient Cognition Impaired: Yes Ability to Follow Directions: Good Speech Pattern: Clear Hallucinations: None Delusions: Not Present Thought Process: Linear Thought Content: positive for Circumstantial Judgement: Fair Diagnostics Vital Signs (24Hr): Vital Signs - 24 hr 03/11/22 18:00 Temperature 97.8 F Pulse Rate 59 Respiratory Rate 17 Blood Pressure 121/61 Pulse Oximetry 96 Oxygen Delivery Method Room Air BMI result Body Mass Index 28.5 Labs Results: 02/28/22 07:59 03/05/22 07:44 Imaging Radiology Impressions: ITS Impressions Head CT 02/06/22 15:04 IMPRESSION: No acute intracranial hemorrhage or territorial infarction. Progressed moderate generalized parenchymal volume loss and mild to moderate chronic white matter microangiopathy. 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 Head CT 02/26/22 10:52 IMPRESSION: No acute intracranial hemorrhage or territorial infarction. Stable diffuse parenchymal volume loss and [id number] chronic white matter microangiopathy. Incompletely visualized moderate left maxillary sinus disease with chronic sclerotic wall thickening. 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 No evidence of acute territorial infarct. No intracranial mass effect or hydrocephalus. Medications Medications Current Medications Acetaminophen (Acetaminophen 325 Mg Tablet) 650 mg PO Q6H PRN PRN Reason: Headache/Pain Mild Scale (1-3) Last Admin: 03/11/22 05:51 Dose: 650 mg Al Hydroxide/Mg Hydroxide (Magnesium Hydrox/Alum Hydrox 30 Ml Oral.Susp) 30 ml PO Q6H PRN PRN Reason: Heartburn/Nausea Amlodipine Besylate (Amlodipine Besylate 10 Mg Tablet) 10 mg PO DAILY [facility]; Protocol Last Admin: 03/12/22 08:32 Dose: 10 mg Artificial Tears (Artificial Tears 15 Ml Drops) 1 drop EYE-BOTH Q4H PRN PRN Reason: dry eyes Atorvastatin Calcium (Atorvastatin Calcium 80 Mg Tablet) 80 mg PO DAILY [facility] Last Admin: 03/12/22 08:33 Dose: 80 mg Carvedilol (Carvedilol 12.5 Mg Tablet) 12.5 mg PO BID [facility]; Protocol Last Admin: 03/12/22 08:33 Dose: 12.5 mg Divalproex Sodium (Divalproex Sodium 250 Mg Tablet.) 250 mg PO DAILY [facility] Last Admin: 03/12/22 08:33 Dose: 250 mg Divalproex Sodium (Divalproex Sodium 500 Mg Tablet.Dr) 500 mg PO BEDTIME [facility] Last Admin: 03/11/22 21:13 Dose: 500 mg Donepezil HCl (Donepezil Hcl 10 Mg Tablet) 10 mg PO BEDTIME [facility] Last Admin: 03/11/22 21:15 Dose: 10 mg Guaifenesin/Dextromethorphan (Guaifenesin Dm 100/10/5 Ml 5 Ml Syrup) 10 ml PO Q4H PRN PRN Reason: cough Hydrochlorothiazide (Hydrochlorothiazide 25 Mg Tablet) 25 mg PO DAILY [facility]; Protocol Last Admin: 03/12/22 08:32 Dose: 25 mg Hydroxyzine HCl (Hydroxyzine Hcl 25 Mg Tablet) 25 mg PO Q6H PRN PRN Reason: Anxiety Last Admin: 02/27/22 20:41 Dose: 25 mg Levothyroxine Sodium (Levothyroxine Sodium 50 Mcg Tablet) 50 mcg PO DAILY@0600 [facility] Last Admin: 03/12/22 06:19 Dose: 50 mcg Magnesium Hydroxide (Milk Of Magnesia 30 Ml Oral.Susp) 30 ml PO DAILY PRN PRN Reason: Constipation Melatonin (Melatonin 3 Mg Tablet) 6 mg PO BEDTIME [facility] Last Admin: 03/11/22 21:14 Dose: 6 mg Melatonin (Melatonin 3 Mg Tablet) 3 mg PO BEDTIME PRN PRN Reason: insomnia Last Admin: 03/08/22 20:25 Dose: 3 mg Nystatin (Nystatin Powder 15 Gm Bottle) 1 appl TOPICAL BID [facility]; Protocol Last Admin: 03/12/22 10:21 Dose: 1 appl Polyethylene Glycol (Polyethylene Glycol 3350 17 Gm Powd.Pack) 17 gm PO DAILY PRN PRN Reason: constipation Quetiapine Fumarate (Quetiapine Fumarate 50 Mg Tablet) 50 mg PO BEDTIME [facility] Last Admin: 03/11/22 21:14 Dose: 50 mg Senna/Docusate Sodium (Sennosides/Docusate Sodium Tablet) 1 tab PO DAILY PRN PRN Reason: constipation Sertraline HCl (Sertraline Hcl 50 Mg Tablet) 50 mg PO DAILY [facility] Last Admin: 03/12/22 08:33 Dose: 50 mg Trazodone HCl (Trazodone Hcl 50 Mg Tablet) 50 mg PO BEDTIME PRN PRN Reason: Insomnia Last Admin: 03/08/22 20:26 Dose: 50 mg Allergies Allergies Allergy/AdvReac Type Severity Reaction Status Date / Time No Known Allergies Allergy Verified 02/05/22 21:09 Assessment & Plan Assessment & Plan (1) Dementia: Status: Acute Code(s): F03.90 - Unspecified dementia, unspecified severity, without behavioral disturbance, psychotic disturbance, mood disturbance, and anxiety Assessment and Plan: Staff reports alteration in mental status in the last 2 days with decreased ability to function and listing to the left side. Rule out right parietal infarct. Recommendation: MRI of the brain without contrast. Waking EEG. (2) Bipolar disorder: Status: Acute Code(s): F31.9 - Bipolar disorder, unspecified Plan the patient is an elderly female with a past history of bipolar disorder, dementia Alzheimer's type for the last 6 months, admitted for recent exacerbation of psychosis and violent behavior.? Very poor historian unable to provide more information.? PLAN: 1. PT consult ordered 2.. Gather collateral information.? 3. Continue with regular medications.? 4. Discharge to assisted living facility Or half-way facility when ready 5. Increased Aricept to 10 mg p.o. q.h.s. on 02/15 6. Monitor BP 7. MRI and EEG ordered. We will follow the EEG results under was no seizure activity. 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 8. Continue recommendations of blood pressure medication as per hospitalist. 9. Waiting for placement I spent __20____ minutes with the patient and/or on the patient floor today, greater than?50% of which was spent counseling/coordinating care. Reason for contiued inpatient stay Substantial Risk for: inability to function, rapid decompensation and med/psych decompensation
[2022-03-12] MEDS: Acetaminophen 325 MG TABLET 650 MG PO (14:51)
[2022-03-12 19:00] VITALS: BP 128/60; PULSE 55; RESP 16; TEMP 36.4; O2SAT 98
[2022-03-12] MEDS: Donepezil HCl 10 MG TABLET PO (20:35)
[2022-03-12] MEDS: Melatonin 3 MG TABLET 6 MG PO (20:35)
[2022-03-12] MEDS: Divalproex Sodium 500 MG TABLET.DR PO (20:35)
[2022-03-12] MEDS: QUEtiapine Fumarate 50 MG TABLET PO (20:35)
[2022-03-12] MEDS: Artificial Tears 15 ML DROPS 1 DROP EYE-BOTH (21:03)
[2022-03-13] MEDS: Levothyroxine Sodium 50 MCG TABLET PO (07:56)
[2022-03-13] MEDS: Atorvastatin Calcium 80 MG TABLET PO (08:16)
[2022-03-13] MEDS: amLODIPine Besylate 10 MG TABLET PO (08:16)
[2022-03-13] MEDS: Sertraline HCL 50 MG TABLET PO (08:16)
[2022-03-13] MEDS: hydroCHLOROthiazide 25 MG TABLET PO (08:16)
[2022-03-13] MEDS: Divalproex Sodium 250 MG TABLET.DR PO (08:17)
[2022-03-13] MEDS: carvediloL 12.5 MG TABLET PO ×2 (08:17→21:01)
[2022-03-13] MEDS: Nystatin Powder 15 GM BOTTLE 1 APPL TOPICAL (08:18)
--- NOTE | 2022-03-13 10:53 | P.PNPSI_ITS ---
Subjective Subjective Date of Service: 03/13/22 Reason For Visit: depression, anxiety, alzheimers Interim History: The nursing staff reported the patient has been pleasant and cooperative, fully compliant with treatment. She slept 6 hours last night and she was seen in the common areas watching TV and interacting with other peers. The social media campaign manager reported that the bar rear for discharge she has a mass at application that still pending. On interview the patient denies new symptoms she is pleasantly confused with good self awareness of her surroundings. Mental Status Exam Mental Status Exam Patient Appearance: Well Grooomed Patient Orientation: Person and Situation Level of Consciousness: Awake Patient Behavior: Guarded and Cooperative Mood Description: Calm Affect Description: Constricted Patient Cognition Impaired: Yes Ability to Follow Directions: Good Speech Pattern: Clear Hallucinations: None Delusions: Not Present Thought Process: Distracted and Slowed Thinking Thought Content: positive for Circumstantial Judgement: Fair Diagnostics Vital Signs (24Hr): Vital Signs - 24 hr 03/12/22 19:00 Temperature 97.5 F Pulse Rate 55 Respiratory Rate 16 Blood Pressure 128/60 Pulse Oximetry 98 Oxygen Delivery Method Room Air BMI result Body Mass Index 28.5 Labs Results: 02/28/22 07:59 03/05/22 07:44 Imaging Radiology Impressions: ITS Impressions Head CT 02/06/22 15:04 IMPRESSION: No acute intracranial hemorrhage or territorial infarction. Progressed moderate generalized parenchymal volume loss and mild to moderate chronic white matter microangiopathy. 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 Head CT 02/26/22 10:52 IMPRESSION: No acute intracranial hemorrhage or territorial infarction. Stable diffuse parenchymal volume loss and [id number] chronic white matter microangiopathy. Incompletely visualized moderate left maxillary sinus disease with chronic sclerotic wall thickening. 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 No evidence of acute territorial infarct. No intracranial mass effect or hydrocephalus. Medications Medications Current Medications Acetaminophen (Acetaminophen 325 Mg Tablet) 650 mg PO Q6H PRN PRN Reason: Headache/Pain Mild Scale (1-3) Last Admin: 03/12/22 14:51 Dose: 650 mg Al Hydroxide/Mg Hydroxide (Magnesium Hydrox/Alum Hydrox 30 Ml Oral.Susp) 30 ml PO Q6H PRN PRN Reason: Heartburn/Nausea Amlodipine Besylate (Amlodipine Besylate 10 Mg Tablet) 10 mg PO DAILY [facility]; Protocol Last Admin: 03/13/22 08:16 Dose: 10 mg Artificial Tears (Artificial Tears 15 Ml Drops) 1 drop EYE-BOTH Q4H PRN PRN Reason: dry eyes Last Admin: 03/12/22 21:03 Dose: 1 drop Atorvastatin Calcium (Atorvastatin Calcium 80 Mg Tablet) 80 mg PO DAILY [facility] Last Admin: 03/13/22 08:16 Dose: 80 mg Carvedilol (Carvedilol 12.5 Mg Tablet) 12.5 mg PO BID [facility]; Protocol Last Admin: 03/13/22 08:17 Dose: 12.5 mg Divalproex Sodium (Divalproex Sodium 250 Mg Tablet.) 250 mg PO DAILY [facility] Last Admin: 03/13/22 08:17 Dose: 250 mg Divalproex Sodium (Divalproex Sodium 500 Mg Tablet.) 500 mg PO BEDTIME [facility] Last Admin: 03/12/22 20:35 Dose: 500 mg Donepezil HCl (Donepezil Hcl 10 Mg Tablet) 10 mg PO BEDTIME [facility] Last Admin: 03/12/22 20:35 Dose: 10 mg Guaifenesin/Dextromethorphan (Guaifenesin Dm 100/10/5 Ml 5 Ml Syrup) 10 ml PO Q4H PRN PRN Reason: cough Hydrochlorothiazide (Hydrochlorothiazide 25 Mg Tablet) 25 mg PO DAILY [facility]; Protocol Last Admin: 03/13/22 08:16 Dose: 25 mg Hydroxyzine HCl (Hydroxyzine Hcl 25 Mg Tablet) 25 mg PO Q6H PRN PRN Reason: Anxiety Last Admin: 02/27/22 20:41 Dose: 25 mg Levothyroxine Sodium (Levothyroxine Sodium 50 Mcg Tablet) 50 mcg PO DAILY@0600 [facility] Last Admin: 03/13/22 07:56 Dose: 50 mcg Magnesium Hydroxide (Milk Of Magnesia 30 Ml Oral.Susp) 30 ml PO DAILY PRN PRN Reason: Constipation Melatonin (Melatonin 3 Mg Tablet) 6 mg PO BEDTIME [facility] Last Admin: 03/12/22 20:35 Dose: 6 mg Melatonin (Melatonin 3 Mg Tablet) 3 mg PO BEDTIME PRN PRN Reason: insomnia Last Admin: 03/08/22 20:25 Dose: 3 mg Nystatin (Nystatin Powder 15 Gm Bottle) 1 appl TOPICAL BID [facility]; Protocol Last Admin: 03/13/22 08:18 Dose: 1 appl Polyethylene Glycol (Polyethylene Glycol 3350 17 Gm Powd.Pack) 17 gm PO DAILY PRN PRN Reason: constipation Quetiapine Fumarate (Quetiapine Fumarate 50 Mg Tablet) 50 mg PO BEDTIME [facility] Last Admin: 03/12/22 20:35 Dose: 50 mg Senna/Docusate Sodium (Sennosides/Docusate Sodium Tablet) 1 tab PO DAILY PRN PRN Reason: constipation Sertraline HCl (Sertraline Hcl 50 Mg Tablet) 50 mg PO DAILY [facility] Last Admin: 03/13/22 08:16 Dose: 50 mg Trazodone HCl (Trazodone Hcl 50 Mg Tablet) 50 mg PO BEDTIME PRN PRN Reason: Insomnia Last Admin: 03/08/22 20:26 Dose: 50 mg Allergies Allergies Allergy/AdvReac Type Severity Reaction Status Date / Time No Known Allergies Allergy Verified 02/05/22 21:09 Assessment & Plan Assessment & Plan (1) Dementia: Status: Acute Code(s): F03.90 - Unspecified dementia, unspecified severity, without behavioral disturbance, psychotic disturbance, mood disturbance, and anxiety Assessment and Plan: Staff reports alteration in mental status in the last 2 days with decreased ability to function and listing to the left side. Rule out right parietal infarct. Recommendation: MRI of the brain without contrast. Waking EEG. (2) Bipolar disorder: Status: Acute Code(s): F31.9 - Bipolar disorder, unspecified Plan the patient is an elderly female with a past history of bipolar disorder, dementia Alzheimer's type for the last 6 months, admitted for recent exacerbation of psychosis and violent behavior.? Very poor historian unable to provide more information.? PLAN: 1. PT consult ordered 2.. Gather collateral information.? 3. Continue with regular medications.? 4. Discharge to assisted living facility Or nursing home facility when ready 5. Increased Aricept to 10 mg p.o. q.h.s. on 02/15 6. Monitor BP 7. MRI and EEG ordered. We will follow the EEG results under was no seizure a ctivity. 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 8. Continue recommendations of blood pressure medication as per hospitalist. 9. Waiting for placement I spent ___20___ minutes with the patient and/or on the patient floor today, greater than?50% of which was spent counseling/coordinating care. Reason for contiued inpatient stay Substantial Risk for: inability to function, rapid decompensation and med/psych decompensation
[2022-03-13 19:00] VITALS: BP 125/60; PULSE 62; RESP 18; TEMP 36.2; O2SAT 98
[2022-03-13] MEDS: Donepezil HCl 10 MG TABLET PO (21:01)
[2022-03-13] MEDS: Melatonin 3 MG TABLET 6 MG PO (21:01)
[2022-03-13] MEDS: QUEtiapine Fumarate 50 MG TABLET PO (21:01)
[2022-03-13] MEDS: Divalproex Sodium 500 MG TABLET.DR PO (21:01)
[2022-03-14 06:00] VITALS: BP 146/70; PULSE 65; RESP 16; TEMP 36.4; O2SAT 95
[2022-03-14] MEDS: Levothyroxine Sodium 50 MCG TABLET PO (06:03)
[2022-03-14] MEDS: Acetaminophen 325 MG TABLET 650 MG PO (06:03)
[2022-03-14] MEDS: hydroCHLOROthiazide 25 MG TABLET PO (08:25)
[2022-03-14] MEDS: Sertraline HCL 50 MG TABLET PO (08:26)
[2022-03-14] MEDS: carvediloL 12.5 MG TABLET PO ×2 (08:26→22:26)
[2022-03-14] MEDS: Atorvastatin Calcium 80 MG TABLET PO (08:26)
[2022-03-14] MEDS: Nystatin Powder 15 GM BOTTLE 1 APPL TOPICAL ×2 (08:27→22:37)
[2022-03-14] MEDS: Divalproex Sodium 250 MG TABLET.DR PO (08:27)
[2022-03-14] MEDS: amLODIPine Besylate 10 MG TABLET PO (08:27)
--- NOTE | 2022-03-14 11:58 | HO.PSYCHPN ---
Subjective Subjective Date of Service: 03/14/22 Reason For Visit: depression, anxiety, alzheimers Subjective Notes: Conditional Voluntary Interim History: The nursing staff reported the patient has been compliant with treatment, she slept well last night. The social work msw reported that we are waiting for placement at this moment. On interview the patient denies new symptoms she is pleasant and cooperative, awake alert of her surroundings, social with peers and staff at moments. Mental Status Exam Mental Status Exam Patient Appearance: Well Grooomed Patient Orientation: Person and Situation Level of Consciousness: Awake and Appropriate Patient Behavior: Cooperative Mood Description: Calm Affect Description: Constricted Patient Cognition Impaired: Yes Ability to Follow Directions: Good Speech Pattern: Clear Hallucinations: None Delusions: Not Present Thought Process: Distracted and Linear Thought Content: positive for [place] and positive for Circumstantial Judgement: Fair Diagnostics Vital Signs (24Hr): Vital Signs - 24 hr 03/13/22 19:00 Temperature 97.2 F Pulse Rate 62 Respiratory Rate 18 Blood Pressure 125/60 Pulse Oximetry 98 Oxygen Delivery Method Room Air BMI result Body Mass Index 28.5 Labs Results: 02/28/22 07:59 03/05/22 07:44 Imaging Radiology Impressions: ITS Impressions Head CT 02/06/22 15:04 IMPRESSION: No acute intracranial hemorrhage or territorial infarction. Progressed moderate generalized parenchymal volume loss and mild to moderate chronic white matter microangiopathy. 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 Head CT 02/26/22 10:52 IMPRESSION: No acute intracranial hemorrhage or territorial infarction. Stable diffuse parenchymal volume loss and [id number] chronic white matter microangiopathy. Incompletely visualized moderate left maxillary sinus disease with chronic sclerotic wall thickening. 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 No evidence of acute territorial infarct. No intracranial mass effect or hydrocephalus. Medications Medications Current Medications Acetaminophen (Acetaminophen 325 Mg Tablet) 650 mg PO Q6H PRN PRN Reason: Headache/Pain Mild Scale (1-3) Last Admin: 03/14/22 06:03 Dose: 650 mg Al Hydroxide/Mg Hydroxide (Magnesium Hydrox/Alum Hydrox 30 Ml Oral.Susp) 30 ml PO Q6H PRN PRN Reason: Heartburn/Nausea Amlodipine Besylate (Amlodipine Besylate 10 Mg Tablet) 10 mg PO DAILY [facility]; Protocol Last Admin: 03/14/22 08:27 Dose: 10 mg Artificial Tears (Artificial Tears 15 Ml Drops) 1 drop EYE-BOTH Q4H PRN PRN Reason: dry eyes Last Admin: 03/12/22 21:03 Dose: 1 drop Atorvastatin Calcium (Atorvastatin Calcium 80 Mg Tablet) 80 mg PO DAILY [facility] Last Admin: 03/14/22 08:26 Dose: 80 mg Carvedilol (Carvedilol 12.5 Mg Tablet) 12.5 mg PO BID [facility]; Protocol Last Admin: 03/14/22 08:26 Dose: 12.5 mg Divalproex Sodium (Divalproex Sodium 250 Mg Tablet.) 250 mg PO DAILY [facility] Last Admin: 03/14/22 08:27 Dose: 250 mg Divalproex Sodium (Divalproex Sodium 500 Mg Tablet.) 500 mg PO BEDTIME [facility] Last Admin: 03/13/22 21:01 Dose: 500 mg Donepezil HCl (Donepezil Hcl 10 Mg Tablet) 10 mg PO BEDTIME [facility] Last Admin: 03/13/22 21:01 Dose: 10 mg Guaifenesin/Dextromethorphan (Guaifenesin Dm 100/10/5 Ml 5 Ml Syrup) 10 ml PO Q4H PRN PRN Reason: cough Hydrochlorothiazide (Hydrochlorothiazide 25 Mg Tablet) 25 mg PO DAILY [facility]; Protocol Last Admin: 03/14/22 08:25 Dose: 25 mg Hydroxyzine HCl (Hydroxyzine Hcl 25 Mg Tablet) 25 mg PO Q6H PRN PRN Reason: Anxiety Last Admin: 02/27/22 20:41 Dose: 25 mg Levothyroxine Sodium (Levothyroxine Sodium 50 Mcg Tablet) 50 mcg PO DAILY@0600 [facility] Last Admin: 03/14/22 06:03 Dose: 50 mcg Magnesium Hydroxide (Milk Of Magnesia 30 Ml Oral.Susp) 30 ml PO DAILY PRN PRN Reason: Constipation Melatonin (Melatonin 3 Mg Tablet) 6 mg PO BEDTIME [facility] Last Admin: 03/13/22 21:01 Dose: 6 mg Melatonin (Melatonin 3 Mg Tablet) 3 mg PO BEDTIME PRN PRN Reason: insomnia Last Admin: 03/08/22 20:25 Dose: 3 mg Nystatin (Nystatin Powder 15 Gm Bottle) 1 appl TOPICAL BID [facility]; Protocol Last Admin: 03/14/22 08:27 Dose: 1 appl Polyethylene Glycol (Polyethylene Glycol 3350 17 Gm Powd.Pack) 17 gm PO DAILY PRN PRN Reason: constipation Quetiapine Fumarate (Quetiapine Fumarate 50 Mg Tablet) 50 mg PO BEDTIME [facility] Last Admin: 03/13/22 21:01 Dose: 50 mg Senna/Docusate Sodium (Sennosides/Docusate Sodium Tablet) 1 tab PO DAILY PRN PRN Reason: constipation Sertraline HCl (Sertraline Hcl 50 Mg Tablet) 50 mg PO DAILY [facility] Last Admin: 03/14/22 08:26 Dose: 50 mg Trazodone HCl (Trazodone Hcl 50 Mg Tablet) 50 mg PO BEDTIME PRN PRN Reason: Insomnia Last Admin: 03/08/22 20:26 Dose: 50 mg Allergies Allergies Allergy/AdvReac Type Severity Reaction Status Date / Time No Known Allergies Allergy Verified 02/05/22 21:09 Assessment & Plan Assessment & Plan (1) Dementia: Status: Acute Code(s): F03.90 - Unspecified dementia, unspecified severity, without behavioral disturbance, psychotic disturbance, mood disturbance, and anxiety Assessment and Plan: Staff reports alteration in mental status in the last 2 days with decreased ability to function and listing to the left side. Rule out right parietal infarct. Recommendation: MRI of the brain without contrast. Waking EEG. (2) Bipolar disorder: Status: Acute Code(s): F31.9 - Bipolar disorder, unspecified Plan the patient is an elderly female with a past history of bipolar disorder, dementia Alzheimer's type for the last 6 months, admitted for recent exacerbation of psychosis and violent behavior.? Very poor historian unable to provide more information.? PLAN: 1. PT consult ordered 2.. Gather collateral information.? 3. Continue with regular medications.? 4. Discharge to assisted living facility Or correction facility when ready 5. Increased Aricept to 10 mg p.o. q.h.s. on 02/15 6. Monitor BP 7. MRI and EEG ordered. We will follow the EEG results under was no seizure activity. 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 8. Continue recommendations of blood pressure medication as per hospitalist. 9. Waiting for placement I spent __20____ minutes with the patient and/or on the patient floor today, greater than?50% of which was spent counseling/coordinating care. Reason for contiued inpatient stay Substantial Risk for: inability to function, rapid decompensation and med/psych decompensation
[2022-03-14 18:00] VITALS: BP 150/77; PULSE 66; RESP 15; TEMP 36.1; O2SAT 99
[2022-03-14] MEDS: hydrOXYzine HCL 25 MG TABLET PO (22:26)
[2022-03-14] MEDS: Divalproex Sodium 500 MG TABLET.DR PO (22:26)
[2022-03-14] MEDS: QUEtiapine Fumarate 50 MG TABLET PO (22:26)
[2022-03-14] MEDS: Melatonin 3 MG TABLET 6 MG PO (22:27)
[2022-03-14] MEDS: Donepezil HCl 10 MG TABLET PO (22:27)
[2022-03-15] MEDS: Levothyroxine Sodium 50 MCG TABLET PO (06:06)
[2022-03-15] MEDS: Acetaminophen 325 MG TABLET 650 MG PO (06:20)
[2022-03-15 08:57] VITALS: BP 153/96; PULSE 60; RESP 16; TEMP 36.3; O2SAT 97
[2022-03-15] MEDS: carvediloL 12.5 MG TABLET PO ×2 (09:08→20:10)
[2022-03-15] MEDS: Divalproex Sodium 250 MG TABLET.DR PO (09:09)
[2022-03-15] MEDS: Atorvastatin Calcium 80 MG TABLET PO (09:09)
[2022-03-15] MEDS: Sertraline HCL 50 MG TABLET PO (09:09)
[2022-03-15] MEDS: amLODIPine Besylate 10 MG TABLET PO (09:09)
[2022-03-15] MEDS: hydroCHLOROthiazide 25 MG TABLET PO (09:10)
--- NOTE | 2022-03-15 10:40 | HO.PSYCHPN ---
Subjective Subjective Date of Service: 03/15/22 Reason For Visit: depression, anxiety, alzheimers Subjective Notes: Conditional Voluntary Interim History: The nursing staff reported the patient had been cooperative and pleasant she has been interacting with peers and attended to groups. Her affect looks brighter and he had been cooperative with care. She had been fully compliant with treatment. Mental Status Exam Mental Status Exam Patient Appearance: Well Grooomed Patient Orientation: Person and Situation Level of Consciousness: Awake and Appropriate Patient Behavior: Cooperative Mood Description: Constricted Affect Description: Calm Patient Cognition Impaired: Yes Ability to Follow Directions: Good Speech Pattern: Clear Hallucinations: None Delusions: Not Present Thought Process: Distracted and Linear Thought Content: positive for [place] and positive for Circumstantial Judgement: Fair Diagnostics Vital Signs (24Hr): Vital Signs - 24 hr 03/14/22 18:00 03/15/22 08:57 Temperature 97.0 F 97.3 F Pulse Rate 66 60 Respiratory Rate 15 16 Blood Pressure 150/77 H 153/96 H Pulse Oximetry 99 97 Oxygen Delivery Method Room Air Room Air BMI result Body Mass Index 28.5 Labs Results: 02/28/22 07:59 03/05/22 07:44 Imaging Radiology Impressions: ITS Impressions Head CT 02/06/22 15:04 IMPRESSION: No acute intracranial hemorrhage or territorial infarction. Progressed moderate generalized parenchymal volume loss and mild to moderate chronic white matter microangiopathy. 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 Head CT 02/26/22 10:52 IMPRESSION: No acute intracranial hemorrhage or territorial infarction. Stable diffuse parenchymal volume loss and [id number] chronic white matter microangiopathy. Incompletely visualized moderate left maxillary sinus disease with chronic sclerotic wall thickening. 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 No evidence of acute territorial infarct. No intracranial mass effect or hydrocephalus. Medications Medications Current Medications Acetaminophen (Acetaminophen 325 Mg Tablet) 650 mg PO Q6H PRN PRN Reason: Headache/Pain Mild Scale (1-3) Last Admin: 03/15/22 06:20 Dose: 650 mg Al Hydroxide/Mg Hydroxide (Magnesium Hydrox/Alum Hydrox 30 Ml Oral.Susp) 30 ml PO Q6H PRN PRN Reason: Heartburn/Nausea Amlodipine Besylate (Amlodipine Besylate 10 Mg Tablet) 10 mg PO DAILY [facility]; Protocol Last Admin: 03/15/22 09:09 Dose: 10 mg Artificial Tears (Artificial Tears 15 Ml Drops) 1 drop EYE-BOTH Q4H PRN PRN Reason: dry eyes Last Admin: 03/12/22 21:03 Dose: 1 drop Atorvastatin Calcium (Atorvastatin Calcium 80 Mg Tablet) 80 mg PO DAILY [facility] Last Admin: 03/15/22 09:09 Dose: 80 mg Carvedilol (Carvedilol 12.5 Mg Tablet) 12.5 mg PO BID [facility]; Protocol Last Admin: 03/15/22 09:08 Dose: 12.5 mg Divalproex Sodium (Divalproex Sodium 250 Mg Tablet.) 250 mg PO DAILY [facility] Last Admin: 03/15/22 09:09 Dose: 250 mg Divalproex Sodium (Divalproex Sodium 500 Mg Tablet.) 500 mg PO BEDTIME [facility] Last Admin: 03/14/22 22:26 Dose: 500 mg Donepezil HCl (Donepezil Hcl 10 Mg Tablet) 10 mg PO BEDTIME [facility] Last Admin: 03/14/22 22:27 Dose: 10 mg Guaifenesin/Dextromethorphan (Guaifenesin Dm 100/10/5 Ml 5 Ml Syrup) 10 ml PO Q4H PRN PRN Reason: cough Hydrochlorothiazide (Hydrochlorothiazide 25 Mg Tablet) 25 mg PO DAILY [facility]; Protocol Last Admin: 03/15/22 09:10 Dose: 25 mg Hydroxyzine HCl (Hydroxyzine Hcl 25 Mg Tablet) 25 mg PO Q6H PRN PRN Reason: Anxiety Last Admin: 03/14/22 22:26 Dose: 25 mg Levothyroxine Sodium (Levothyroxine Sodium 50 Mcg Tablet) 50 mcg PO DAILY@0600 [facility] Last Admin: 03/15/22 06:06 Dose: 50 mcg Magnesium Hydroxide (Milk Of Magnesia 30 Ml Oral.Susp) 30 ml PO DAILY PRN PRN Reason: Constipation Melatonin (Melatonin 3 Mg Tablet) 6 mg PO BEDTIME [facility] Last Admin: 03/14/22 22:27 Dose: 6 mg Melatonin (Melatonin 3 Mg Tablet) 3 mg PO BEDTIME PRN PRN Reason: insomnia Last Admin: 03/08/22 20:25 Dose: 3 mg Nystatin (Nystatin Powder 15 Gm Bottle) 1 appl TOPICAL BID [facility]; Protocol Last Admin: 03/14/22 22:37 Dose: 1 appl Polyethylene Glycol (Polyethylene Glycol 3350 17 Gm Powd.Pack) 17 gm PO DAILY PRN PRN Reason: constipation Quetiapine Fumarate (Quetiapine Fumarate 50 Mg Tablet) 50 mg PO BEDTIME [facility] Last Admin: 03/14/22 22:26 Dose: 50 mg Senna/Docusate Sodium (Sennosides/Docusate Sodium Tablet) 1 tab PO DAILY PRN PRN Reason: constipation Sertraline HCl (Sertraline Hcl 50 Mg Tablet) 50 mg PO DAILY [facility] Last Admin: 03/15/22 09:09 Dose: 50 mg Trazodone HCl (Trazodone Hcl 50 Mg Tablet) 50 mg PO BEDTIME PRN PRN Reason: Insomnia Last Admin: 03/08/22 20:26 Dose: 50 mg Allergies Allergies Allergy/AdvReac Type Severity Reaction Status Date / Time No Known Allergies Allergy Verified 02/05/22 21:09 Assessment & Plan Assessment & Plan (1) Dementia: Status: Acute Code(s): F03.90 - Unspecified dementia, unspecified severity, without behavioral disturbance, psychotic disturbance, mood disturbance, and anxiety Assessment and Plan: Staff reports alteration in mental status in the last 2 days with decreased ability to function and listing to the left side. Rule out right parietal infarct. Recommendation: MRI of the brain without contrast. Waking EEG. (2) Bipolar disorder: Status: Acute Code(s): F31.9 - Bipolar disorder, unspecified Plan the patient is an elderly female with a past history of bipolar disorder, dementia Alzheimer's type for the last 6 months, admitted for recent exacerbation of psychosis and violent behavior.? Very poor historian unable to provide more information.? PLAN: 1. PT consult ordered 2.. Gather collateral information.? 3. Continue with regular medications.? 4. Discharge to assisted living facility Or custodial facility when ready 5. Increased Aricept to 10 mg p.o. q.h.s. on 02/15 6. Monitor BP 7. MRI and EEG ordered. We will follow the EEG results under was no seizure activity. 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 8. Continue recommendations of blood pressure medication as per hospitalist. 9. Waiting for placement I spent ___20___ minutes with the patient and/or on the patient floor today, greater than?50% of which was spent counseling/coordinating care. Reason for contiued inpatient stay Substantial Risk for: inability to function, rapid decompensation and med/psych decompensation
[2022-03-15 19:00] VITALS: BP 138/74; PULSE 62; RESP 18; TEMP 36.3; O2SAT 96
[2022-03-15] MEDS: Melatonin 3 MG TABLET 6 MG PO (20:10)
[2022-03-15] MEDS: Donepezil HCl 10 MG TABLET PO (20:10)
[2022-03-15] MEDS: QUEtiapine Fumarate 50 MG TABLET PO (20:10)
[2022-03-15] MEDS: Divalproex Sodium 500 MG TABLET.DR PO (20:10)
[2022-03-16] MEDS: Levothyroxine Sodium 50 MCG TABLET PO (06:09)
[2022-03-16 07:30] VITALS: BP 142/73; PULSE 66; RESP 16; TEMP 36.2; O2SAT 94
--- NOTE | 2022-03-16 08:24 | P.PNPSI_ITS ---
Subjective Subjective Date of Service: 03/16/22 Reason For Visit: depression, anxiety, alzheimers Subjective Notes: Conditional Voluntary Interim History: The nursing staff reported the patient has been intrusive at times but easily redirectable. She slept 8 hours and she was fully compliant with treatment. On interview the patient denies new symptoms she looks in a good mood. She is aware that we are waiting for placement. Mental Status Exam Mental Status Exam Patient Appearance: Well Grooomed and Appropriate Patient Orientation: Person and Situation Level of Consciousness: Awake Patient Behavior: Cooperative and Passive Mood Description: Calm Affect Description: Constricted Patient Cognition Impaired: Yes Ability to Follow Directions: Good Speech Pattern: Clear Hallucinations: None Delusions: Not Present Thought Process: Distracted and Evasive Thought Content: positive for Circumstantial Judgement: Fair Diagnostics Vital Signs (24Hr): Vital Signs - 24 hr 03/15/22 08:57 03/15/22 19:00 Temperature 97.3 F 97.4 F Pulse Rate 60 62 Respiratory Rate 16 18 Blood Pressure 153/96 H 138/74 Pulse Oximetry 97 96 Oxygen Delivery Method Room Air Room Air BMI result Body Mass Index 28.5 Labs Results: 02/28/22 07:59 03/05/22 07:44 Imaging Radiology Impressions: ITS Impressions Head CT 02/06/22 15:04 IMPRESSION: No acute intracranial hemorrhage or territorial infarction. Progressed moderate generalized parenchymal volume loss and mild to moderate chronic white matter microangiopathy. 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 Head CT 02/26/22 10:52 IMPRESSION: No acute intracranial hemorrhage or territorial infarction. Stable diffuse parenchymal volume loss and [id number] chronic white matter microangiopathy. Incompletely visualized moderate left maxillary sinus disease with chronic sclerotic wall thickening. 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 No evidence of acute territorial infarct. No intracranial mass effect or hydrocephalus. Medications Medications Current Medications Acetaminophen (Acetaminophen 325 Mg Tablet) 650 mg PO Q6H PRN PRN Reason: Headache/Pain Mild Scale (1-3) Last Admin: 03/15/22 06:20 Dose: 650 mg Al Hydroxide/Mg Hydroxide (Magnesium Hydrox/Alum Hydrox 30 Ml Oral.Susp) 30 ml PO Q6H PRN PRN Reason: Heartburn/Nausea Amlodipine Besylate (Amlodipine Besylate 10 Mg Tablet) 10 mg PO DAILY [facility]; Protocol Last Admin: 03/15/22 09:09 Dose: 10 mg Artificial Tears (Artificial Tears 15 Ml Drops) 1 drop EYE-BOTH Q4H PRN PRN Reason: dry eyes Last Admin: 03/12/22 21:03 Dose: 1 drop Atorvastatin Calcium (Atorvastatin Calcium 80 Mg Tablet) 80 mg PO DAILY [facility] Last Admin: 03/15/22 09:09 Dose: 80 mg Carvedilol (Carvedilol 12.5 Mg Tablet) 12.5 mg PO BID [facility]; Protocol Last Admin: 03/15/22 20:10 Dose: 12.5 mg Divalproex Sodium (Divalproex Sodium 250 Mg Tablet.) 250 mg PO DAILY [facility] Last Admin: 03/15/22 09:09 Dose: 250 mg Divalproex Sodium (Divalproex Sodium 500 Mg Tablet.) 500 mg PO BEDTIME [facility] Last Admin: 03/15/22 20:10 Dose: 500 mg Donepezil HCl (Donepezil Hcl 10 Mg Tablet) 10 mg PO BEDTIME [facility] Last Admin: 03/15/22 20:10 Dose: 10 mg Guaifenesin/Dextromethorphan (Guaifenesin Dm 100/10/5 Ml 5 Ml Syrup) 10 ml PO Q4H PRN PRN Reason: cough Hydrochlorothiazide (Hydrochlorothiazide 25 Mg Tablet) 25 mg PO DAILY [facility]; Protocol Last Admin: 03/15/22 09:10 Dose: 25 mg Hydroxyzine HCl (Hydroxyzine Hcl 25 Mg Tablet) 25 mg PO Q6H PRN PRN Reason: Anxiety Last Admin: 03/14/22 22:26 Dose: 25 mg Levothyroxine Sodium (Levothyroxine Sodium 50 Mcg Tablet) 50 mcg PO DAILY@0600 [facility] Last Admin: 03/16/22 06:09 Dose: 50 mcg Magnesium Hydroxide (Milk Of Magnesia 30 Ml Oral.Susp) 30 ml PO DAILY PRN PRN Reason: Constipation Melatonin (Melatonin 3 Mg Tablet) 6 mg PO BEDTIME [facility] Last Admin: 03/15/22 20:10 Dose: 6 mg Melatonin (Melatonin 3 Mg Tablet) 3 mg PO BEDTIME PRN PRN Reason: insomnia Last Admin: 03/08/22 20:25 Dose: 3 mg Nystatin (Nystatin Powder 15 Gm Bottle) 1 appl TOPICAL BID [facility]; Protocol Last Admin: 03/15/22 20:10 Dose: Not Given Polyethylene Glycol (Polyethylene Glycol 3350 17 Gm Powd.Pack) 17 gm PO DAILY PRN PRN Reason: constipation Quetiapine Fumarate (Quetiapine Fumarate 50 Mg Tablet) 50 mg PO BEDTIME [facility] Last Admin: 03/15/22 20:10 Dose: 50 mg Senna/Docusate Sodium (Sennosides/Docusate Sodium Tablet) 1 tab PO DAILY PRN PRN Reason: constipation Sertraline HCl (Sertraline Hcl 50 Mg Tablet) 50 mg PO DAILY [facility] Last Admin: 03/15/22 09:09 Dose: 50 mg Trazodone HCl (Trazodone Hcl 50 Mg Tablet) 50 mg PO BEDTIME PRN PRN Reason: Insomnia Last Admin: 03/08/22 20:26 Dose: 50 mg Allergies Allergies Allergy/AdvReac Type Severity Reaction Status Date / Time No Known Allergies Allergy Verified 02/05/22 21:09 Assessment & Plan Assessment & Plan (1) Dementia: Status: Acute Code(s): F03.90 - Unspecified dementia, unspecified severity, without behavioral disturbance, psychotic disturbance, mood disturbance, and anxiety Assessment and Plan: Staff reports alteration in mental status in the last 2 days with decreased ability to function and listing to the left side. Rule out right parietal infarct. Recommendation: MRI of the brain without contrast. Waking EEG. (2) Bipolar disorder: Status: Acute Code(s): F31.9 - Bipolar disorder, unspecified Plan the patient is an elderly female with a past history of bipolar disorder, dementia Alzheimer's type for the last 6 months, admitted for recent exacerbation of psychosis and violent behavior.? Very poor historian unable to provide more information.? PLAN: 1. PT consult ordered 2.. Gather collateral information.? 3. Continue with regular medications.? 4. Discharge to assisted living facility Or prison facility when ready 5. Increased Aricept to 10 mg p.o. q.h.s. on 02/15 6. Monitor BP 7. MRI and EEG ordered. We will follow the EEG results under was no seizure activity. 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 At this moment neurologically she is stable. 8. Continue recommendations of blood pressure medication as per hospitalist. 9. Waiting for placement I spent ___20___ minutes with the patient and/or on the patient floor today, greater than?50% of which was spent counseling/coordinating care. Reason for contiued inpatient stay Substantial Risk for: inability to function, rapid decompensation and med/psych decompensation
[2022-03-16] MEDS: Divalproex Sodium 250 MG TABLET.DR PO (10:09)
[2022-03-16] MEDS: hydroCHLOROthiazide 25 MG TABLET PO (10:09)
[2022-03-16] MEDS: amLODIPine Besylate 10 MG TABLET PO (10:10)
[2022-03-16] MEDS: carvediloL 12.5 MG TABLET PO ×2 (10:10→20:29)
[2022-03-16] MEDS: Atorvastatin Calcium 80 MG TABLET PO (10:10)
[2022-03-16] MEDS: Sertraline HCL 50 MG TABLET PO (10:10)
[2022-03-16 19:30] VITALS: BP 138/65; PULSE 64; RESP 18; TEMP 36.1; O2SAT 96
[2022-03-16] MEDS: Melatonin 3 MG TABLET 6 MG PO (20:29)
[2022-03-16] MEDS: Donepezil HCl 10 MG TABLET PO (20:30)
[2022-03-16] MEDS: Divalproex Sodium 500 MG TABLET.DR PO (20:30)
[2022-03-16] MEDS: QUEtiapine Fumarate 50 MG TABLET PO (20:30)
[2022-03-17] MEDS: Levothyroxine Sodium 50 MCG TABLET PO (06:30)
[2022-03-17 08:05] VITALS: BP 155/75; PULSE 60; RESP 18; TEMP 36.1; O2SAT 95
[2022-03-17] MEDS: Atorvastatin Calcium 80 MG TABLET PO (08:25)
[2022-03-17] MEDS: amLODIPine Besylate 10 MG TABLET PO (08:25)
[2022-03-17] MEDS: carvediloL 12.5 MG TABLET PO ×2 (08:26→20:44)
[2022-03-17] MEDS: Sertraline HCL 50 MG TABLET PO (08:26)
[2022-03-17] MEDS: Divalproex Sodium 250 MG TABLET.DR PO (08:26)
[2022-03-17] MEDS: hydroCHLOROthiazide 25 MG TABLET PO (08:38)
--- NOTE | 2022-03-17 09:15 | P.PNPSI_ITS ---
Subjective Subjective Date of Service: 03/17/22 Reason For Visit: depression, anxiety, alzheimers Subjective Notes: Conditional Voluntary Interim History: Pt mostly in bed. She reports doing well. Somewhat upset when asked if any SI, stating never, I am not that type of person! She denies physical concerns. Per nursing, taking meds as prescribed. No behavioral concerns. Medication Compliance: Yes Review of Systems Review of Systems General: No fevers, malaise, unintentional weight loss HEENT: No blurred vision or diplopia Cardiovascular: No chest pain, palpitations, or leg edema Respiratory: No shortness of breath, wheezing, cough GI: No abdominal pain, nausea, vomiting, diarrhea, constipation, melena, hematochezia : No dysuria, hematuria, increased urinary frequency, urgency MSK: No myalgia Neuro: No headaches, weakness, paresthesias Skin: No rashes or lesions Yes all other systems are reviewed and are negative and Unobtainable due to mental status Mental Status Exam Mental Status Exam Narrative: Patient Appearance: Well Grooomed Patient Orientation: Person and Situation Level of Consciousness: Awake Patient Behavior: Cooperative Mood Description: Withdrawn Affect Description: Constricted Ability to Follow Directions: Good Speech Pattern: Clear Hallucinations: Auditory Delusions: Not Present Thought Process: Distracted Thought Content: positive for [place] and positive for Circumstantial Judgement: Fair Diagnostics Vital Signs (24Hr): Vital Signs - 24 hr 03/18/22 06:00 03/18/22 18:00 Temperature 97.1 F 96.2 F L Pulse Rate 61 66 Respiratory Rate 16 18 Blood Pressure 150/72 H 135/76 Pulse Oximetry 92 94 Oxygen Delivery Method Room Air Room Air BMI result Body Mass Index 28.5 Labs Results: 02/28/22 07:59 03/05/22 07:44 Imaging Radiology Impressions: ITS Impressions Head CT 02/06/22 15:04 IMPRESSION: No acute intracranial hemorrhage or territorial infarction. Progressed moderate generalized parenchymal volume loss and mild to moderate chronic white matter microangiopathy. 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 Head CT 02/26/22 10:52 IMPRESSION: No acute intracranial hemorrhage or territorial infarction. Stable diffuse parenchymal volume loss and oxur-xw-ezsbloyd chronic white matter microangiopathy. Incompletely visualized moderate left maxillary sinus disease with chronic sclerotic wall thickening. 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 No evidence of acute territorial infarct. No intracranial mass effect or hydrocephalus. Medications Medications Current Medications Acetaminophen (Acetaminophen 325 Mg Tablet) 650 mg PO Q6H PRN PRN Reason: Headache/Pain Mild Scale (1-3) Last Admin: 03/18/22 20:32 Dose: 650 mg Al Hydroxide/Mg Hydroxide (Magnesium Hydrox/Alum Hydrox 30 Ml Oral.Susp) 30 ml PO Q6H PRN PRN Reason: Heartburn/Nausea Amlodipine Besylate (Amlodipine Besylate 10 Mg Tablet) 10 mg PO DAILY [facility]; Protocol Last Admin: 03/18/22 08:28 Dose: 10 mg Artificial Tears (Artificial Tears 15 Ml Drops) 1 drop EYE-BOTH Q4H PRN PRN Reason: dry eyes Last Admin: 03/12/22 21:03 Dose: 1 drop Atorvastatin Calcium (Atorvastatin Calcium 80 Mg Tablet) 80 mg PO DAILY [facility] Last Admin: 03/18/22 08:28 Dose: 80 mg Carvedilol (Carvedilol 12.5 Mg Tablet) 12.5 mg PO BID [facility]; Protocol Last Admin: 03/18/22 20:33 Dose: 12.5 mg Divalproex Sodium (Divalproex Sodium 250 Mg Tablet.) 250 mg PO DAILY [facility] Last Admin: 03/18/22 08:28 Dose: 250 mg Divalproex Sodium (Divalproex Sodium 500 Mg Tablet.) 500 mg PO BEDTIME [facility] Last Admin: 03/18/22 20:33 Dose: 500 mg Donepezil HCl (Donepezil Hcl 10 Mg Tablet) 10 mg PO BEDTIME [facility] Last Admin: 03/18/22 20:33 Dose: 10 mg Guaifenesin/Dextromethorphan (Guaifenesin Dm 100/10/5 Ml 5 Ml Syrup) 10 ml PO Q4H PRN PRN Reason: cough Hydrochlorothiazide (Hydrochlorothiazide 25 Mg Tablet) 25 mg PO DAILY [facility]; Protocol Last Admin: 03/18/22 08:27 Dose: 25 mg Hydroxyzine HCl (Hydroxyzine Hcl 25 Mg Tablet) 25 mg PO Q6H PRN PRN Reason: Anxiety Last Admin: 11/27/22 20:33 Dose: 25 mg Levothyroxine Sodium (Levothyroxine Sodium 50 Mcg Tablet) 50 mcg PO DAILY@0600 [facility] Last Admin: 03/18/22 05:02 Dose: 50 mcg Magnesium Hydroxide (Milk Of Magnesia 30 Ml Oral.Susp) 30 ml PO DAILY PRN PRN Reason: Constipation Melatonin (Melatonin 3 Mg Tablet) 6 mg PO BEDTIME [facility] Last Admin: 03/18/22 20:34 Dose: 6 mg Melatonin (Melatonin 3 Mg Tablet) 3 mg PO BEDTIME PRN PRN Reason: insomnia Last Admin: 03/08/22 20:25 Dose: 3 mg Nystatin (Nystatin Powder 15 Gm Bottle) 1 appl TOPICAL BID [facility]; Protocol Last Admin: 03/18/22 20:35 Dose: Not Given Polyethylene Glycol (Polyethylene Glycol 3350 17 Gm Powd.Pack) 17 gm PO DAILY PRN PRN Reason: constipation Quetiapine Fumarate (Quetiapine Fumarate 50 Mg Tablet) 50 mg PO BEDTIME [facility] Last Admin: 03/18/22 20:33 Dose: 50 mg Senna/Docusate Sodium (Sennosides/Docusate Sodium Tablet) 1 tab PO DAILY PRN PRN Reason: constipation Sertraline HCl (Sertraline Hcl 50 Mg Tablet) 50 mg PO DAILY [facility] Last Admin: 03/18/22 08:28 Dose: 50 mg Trazodone HCl (Trazodone Hcl 50 Mg Tablet) 50 mg PO BEDTIME PRN PRN Reason: Insomnia Last Admin: 03/08/22 20:26 Dose: 50 mg Allergies Allergies Allergy/AdvReac Type Severity Reaction Status Date / Time No Known Allergies Allergy Verified 02/05/22 21:09 Assessment & Plan Assessment & Plan (1) Dementia: Status: Acute Code(s): F03.90 - Unspecified dementia, unspecified severity, without behavioral distur bance, psychotic disturbance, mood disturbance, and anxiety Assessment and Plan: Staff reports alteration in mental status in the last 2 days with decreased ability to function and listing to the left side. Rule out right parietal infarct. Recommendation: MRI of the brain without contrast. Waking EEG. (2) Bipolar disorder: Status: Acute Code(s): F31.9 - Bipolar disorder, unspecified Plan the patient is an elderly female with a past history of bipolar disorder, dementia Alzheimer's type for the last 6 months, admitted for recent exacerbation of psychosis and violent behavior.? Very poor historian unable to provide more information.? PLAN: 1. PT consult ordered 2.. Gather collateral information.? 3. Continue with regular medications.? 4. Discharge to assisted living facility Or halfway facility when ready 5. Increased Aricept to 10 mg p.o. q.h.s. on 02/15 6. Monitor BP 7. MRI and EEG ordered. We will follow the EEG results under was no seizure activity. 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 At this moment neurologically she is stable. 8. Continue recommendations of blood pressure medication as per hospitalist. 9. Waiting for placement 03/17 continue tx. I spent minutes with the patient and/or on the patient floor today, greater than?50% of which was spent counseling/coordinating care. Reason for contiued inpatient stay Substantial Risk for: inability to function
[2022-03-17] MEDS: Acetaminophen 325 MG TABLET 650 MG PO (17:49)
[2022-03-17 19:00] VITALS: BP 127/61; PULSE 62; RESP 16; TEMP 36.7; O2SAT 97
[2022-03-17] MEDS: Divalproex Sodium 500 MG TABLET.DR PO (20:44)
[2022-03-17] MEDS: QUEtiapine Fumarate 50 MG TABLET PO (20:44)
[2022-03-17] MEDS: Donepezil HCl 10 MG TABLET PO (20:44)
[2022-03-17] MEDS: Melatonin 3 MG TABLET 6 MG PO (20:44)
[2022-03-18] MEDS: Levothyroxine Sodium 50 MCG TABLET PO (05:02)
[2022-03-18] MEDS: Acetaminophen 325 MG TABLET 650 MG PO ×2 (05:02→20:32)
[2022-03-18 06:00] VITALS: BP 150/72; PULSE 61; RESP 16; TEMP 36.2; O2SAT 92
[2022-03-18] MEDS: hydroCHLOROthiazide 25 MG TABLET PO (08:27)
[2022-03-18] MEDS: Sertraline HCL 50 MG TABLET PO (08:28)
[2022-03-18] MEDS: carvediloL 12.5 MG TABLET PO ×2 (08:28→20:33)
[2022-03-18] MEDS: Divalproex Sodium 250 MG TABLET.DR PO (08:28)
[2022-03-18] MEDS: Atorvastatin Calcium 80 MG TABLET PO (08:28)
[2022-03-18] MEDS: amLODIPine Besylate 10 MG TABLET PO (08:28)
--- NOTE | 2022-03-18 10:00 | HO.PSYCHPN ---
Subjective Subjective Date of Service: 03/18/22 Reason For Visit: depression, anxiety, alzheimers Interim History: Pt mostly in bed. She reports doing well. constricted affect. She denies SI/HI. She denies physical concerns. Per nursing, taking meds as prescribed. No behavioral concerns. Medication Compliance: Yes Review of Systems Review of Systems General: No fevers, malaise, unintentional weight loss HEENT: No blurred vision or diplopia Cardiovascular: No chest pain, palpitations, or leg edema Respiratory: No shortness of breath, wheezing, cough GI: No abdominal pain, nausea, vomiting, diarrhea, constipation, melena, hematochezia : No dysuria, hematuria, increased urinary frequency, urgency MSK: No myalgia Neuro: No headaches, weakness, paresthesias Skin: No rashes or lesions Yes all other systems are reviewed and are negative and Unobtainable due to mental status Mental Status Exam Mental Status Exam Narrative: Patient Appearance: Well Grooomed Patient Orientation: Person and Situation Level of Consciousness: Awake Patient Behavior: Cooperative Mood Description: Withdrawn Affect Description: Constricted Ability to Follow Directions: Good Speech Pattern: Clear Hallucinations: Auditory Delusions: Not Present Thought Process: Distracted Thought Content: positive for [place] and positive for Circumstantial Judgement: Fair Diagnostics Vital Signs (24Hr): Vital Signs - 24 hr 03/18/22 18:00 Temperature 96.2 F L Pulse Rate 66 Respiratory Rate 18 Blood Pressure 135/76 Pulse Oximetry 94 Oxygen Delivery Method Room Air BMI result Body Mass Index 28.5 Labs Results: 02/28/22 07:59 03/05/22 07:44 Imaging Radiology Impressions: ITS Impressions Head CT 02/06/22 15:04 IMPRESSION: No acute intracranial hemorrhage or territorial infarction. Progressed moderate generalized parenchymal volume loss and mild to moderate chronic white matter microangiopathy. 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 Head CT 02/26/22 10:52 IMPRESSION: No acute intracranial hemorrhage or territorial infarction. Stable diffuse parenchymal volume loss and enjn-ho-eeatgwnm chronic white matter microangiopathy. Incompletely visualized moderate left maxillary sinus disease with chronic sclerotic wall thickening. 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 No evidence of acute territorial infarct. No intracranial mass effect or hydrocephalus. Medications Medications Current Medications Acetaminophen (Acetaminophen 325 Mg Tablet) 650 mg PO Q6H PRN PRN Reason: Headache/Pain Mild Scale (1-3) Last Admin: 03/18/22 20:32 Dose: 650 mg Al Hydroxide/Mg Hydroxide (Magnesium Hydrox/Alum Hydrox 30 Ml Oral.Susp) 30 ml PO Q6H PRN PRN Reason: Heartburn/Nausea Amlodipine Besylate (Amlodipine Besylate 10 Mg Tablet) 10 mg PO DAILY [facility]PLAC[facility] BY [facility]; Protocol Last Admin: 03/18/22 08:28 Dose: 10 mg Artificial Tears (Artificial Tears 15 Ml Drops) 1 drop EYE-BOTH Q4H PRN PRN Reason: dry eyes Last Admin: 03/12/22 21:03 Dose: 1 drop Atorvastatin Calcium (Atorvastatin Calcium 80 Mg Tablet) 80 mg PO DAILY [facility]PLACED BY [facility] Last Admin: 03/18/22 08:28 Dose: 80 mg Carvedilol (Carvedilol 12.5 Mg Tablet) 12.5 mg PO BID [facility]PL[facility]ED BY [facility]; Protocol Last Admin: 03/18/22 20:33 Dose: 12.5 mg Divalproex Sodium (Divalproex Sodium 250 Mg Tablet.) 250 mg PO DAILY REPLACED BY [facility] Last Admin: 03/18/22 08:28 Dose: 250 mg Divalproex Sodium (Divalproex Sodium 500 Mg Tablet.) 500 mg PO BEDTIME REPLACED BY [facility] Last Admin: 03/18/22 20:33 Dose: 500 mg Donepezil HCl (Donepezil Hcl 10 Mg Tablet) 10 mg PO BEDTIME [facility] Last Admin: 03/18/22 20:33 Dose: 10 mg Guaifenesin/Dextromethorphan (Guaifenesin Dm 100/10/5 Ml 5 Ml Syrup) 10 ml PO Q4H PRN PRN Reason: cough Hydrochlorothiazide (Hydrochlorothiazide 25 Mg Tablet) 25 mg PO DAILY [facility]PLACED BY [facility]; Protocol Last Admin: 03/18/22 08:27 Dose: 25 mg Hydroxyzine HCl (Hydroxyzine Hcl 25 Mg Tablet) 25 mg PO Q6H PRN PRN Reason: Anxiety Last Admin: 03/18/22 20:33 Dose: 25 mg Levothyroxine Sodium (Levothyroxine Sodium 50 Mcg Tablet) 50 mcg PO DAILY@0600 [facility] Last Admin: 03/18/22 05:02 Dose: 50 mcg Magnesium Hydroxide (Milk Of Magnesia 30 Ml Oral.Susp) 30 ml PO DAILY PRN PRN Reason: Constipation Melatonin (Melatonin 3 Mg Tablet) 6 mg PO BEDTIME REPLACED BY [facility] Last Admin: 03/18/22 20:34 Dose: 6 mg Melatonin (Melatonin 3 Mg Tablet) 3 mg PO BEDTIME PRN PRN Reason: insomnia Last Admin: 03/08/22 20:25 Dose: 3 mg Nystatin (Nystatin Powder 15 Gm Bottle) 1 appl TOPICAL BID REPLACED BY [facility]; Protocol Last Admin: 03/18/22 20:35 Dose: Not Given Polyethylene Glycol (Polyethylene Glycol 3350 17 Gm Powd.Pack) 17 gm PO DAILY PRN PRN Reason: constipation Quetiapine Fumarate (Quetiapine Fumarate 50 Mg Tablet) 50 mg PO BEDTIME REPLACED BY [facility] Last Admin: 03/18/22 20:33 Dose: 50 mg Senna/Docusate Sodium (Sennosides/Docusate Sodium Tablet) 1 tab PO DAILY PRN PRN Reason: constipation Sertraline HCl (Sertraline Hcl 50 Mg Tablet) 50 mg PO DAILY REPLACED BY [facility] Last Admin: 03/18/22 08:28 Dose: 50 mg Trazodone HCl (Trazodone Hcl 50 Mg Tablet) 50 mg PO BEDTIME PRN PRN Reason: Insomnia Last Admin: 03/08/22 20:26 Dose: 50 mg Allergies Allergies Allergy/AdvReac Type Severity Reaction Status Date / Time No Known Allergies Allergy Verified 02/05/22 21:09 Assessment & Plan Assessment & Plan (1) Dementia: Status: Acute Code(s): F03.90 - Unspecified dementia, unspecified severity, without behavioral disturbance, psychotic disturbance, mood disturbance, and anxiety Assessment and Plan: Staff reports alteration in mental status in the last 2 days with decreased ability to function and listing to the left side. Rule out right parietal infarct. Recommendation: MRI of the brain without contrast. Waking EEG. (2) Bipolar disorder: Status: Acute Code(s): F31.9 - Bipolar disorder, unspecified Plan the patient is an elderly female with a past history of bipolar disorder, dementia Alzheimer's type for the last 6 months, admitted for recent exacerbation of psychosis and violent behavior.? Very poor historian unable to provide more information.? PLAN: 1. PT consult ordered 2.. Gather collateral information.? 3. Continue with regular medications.? 4. Discharge to assisted living facility Or snf facility when ready 5. Increased Aricept to 10 mg p.o. q.h.s. on 02/15 6. Monitor BP 7. MRI and EEG ordered. We will follow the EEG results under was no seizure activity. 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 At this moment neurologically she is stable. 8. Continue recommendations of blood pressure medication as per hospitalist. 9. Waiting for placement 03/17 continue tx. 03/18 continue tx. I spent minutes with the patient and/or on the patient floor today, greater than?50% of which was spent counseling/coordinating care. Reason for contiued inpatient stay Substantial Risk for: inability to function
[2022-03-18 18:00] VITALS: BP 135/76; PULSE 66; RESP 18; TEMP 35.7; O2SAT 94
[2022-03-18] MEDS: Divalproex Sodium 500 MG TABLET.DR PO (20:33)
[2022-03-18] MEDS: hydrOXYzine HCL 25 MG TABLET PO (20:33)
[2022-03-18] MEDS: QUEtiapine Fumarate 50 MG TABLET PO (20:33)
[2022-03-18] MEDS: Donepezil HCl 10 MG TABLET PO (20:33)
[2022-03-18] MEDS: Melatonin 3 MG TABLET 6 MG PO (20:34)
[2022-03-19 06:00] VITALS: BP 163/72; PULSE 66; RESP 18; TEMP 35.9
[2022-03-19] MEDS: Levothyroxine Sodium 50 MCG TABLET PO (06:08)
[2022-03-19] MEDS: carvediloL 12.5 MG TABLET PO ×2 (10:17→21:03)
[2022-03-19] MEDS: hydroCHLOROthiazide 25 MG TABLET PO (10:18)
[2022-03-19] MEDS: amLODIPine Besylate 10 MG TABLET PO (10:18)
[2022-03-19] MEDS: Atorvastatin Calcium 80 MG TABLET PO (10:18)
[2022-03-19] MEDS: Divalproex Sodium 250 MG TABLET.DR PO (10:18)
[2022-03-19] MEDS: Sertraline HCL 50 MG TABLET PO (10:19)
--- NOTE | 2022-03-19 12:46 | P.PNPSI_ITS ---
Subjective Subjective Date of Service: 03/19/22 Reason For Visit: depression, anxiety, alzheimers Subjective Notes: Conditional Voluntary Interim History: The nursing staff reported the patient had been compliant with treatment, she had been seen in the common areas and interacting with some peers. The manager social media reported the mask that will EKG still in process and there was no source of income for [facility] facility at this time. On interview the patient denies new symptoms. Mental Status Exam Mental Status Exam Patient Appearance: Well Grooomed and Appropriate Patient Orientation: Person and Situation Level of Consciousness: Awake Patient Behavior: Guarded and Cooperative Mood Description: Withdrawn Affect Description: Constricted Patient Cognition Impaired: Yes Ability to Follow Directions: Good Speech Pattern: Clear Hallucinations: None Delusions: Not Present Thought Process: Distracted and Linear Thought Content: positive for [place] and positive for Circumstantial Judgement: Fair Diagnostics Vital Signs (24Hr): Vital Signs - 24 hr 03/18/22 18:00 03/19/22 06:00 Temperature 96.2 F L 96.7 F L Pulse Rate 66 66 Respiratory Rate 18 18 Blood Pressure 135/76 163/72 H Pulse Oximetry 94 Oxygen Delivery Method Room Air Room Air BMI result Body Mass Index 28.5 Labs Results: 02/28/22 07:59 03/05/22 07:44 Imaging Radiology Impressions: ITS Impressions Head CT 02/06/22 15:04 IMPRESSION: No acute intracranial hemorrhage or territorial infarction. Progressed moderate generalized parenchymal volume loss and mild to moderate chronic white matter microangiopathy. 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 Head CT 02/26/22 10:52 IMPRESSION: No acute intracranial hemorrhage or territorial infarction. Stable diffuse parenchymal volume loss and aenn-sy-tmqdwzlu chronic white matter microangiopathy. Incompletely visualized moderate left maxillary sinus disease with chronic sclerotic wall thickening. 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 No evidence of acute territorial infarct. No intracranial mass effect or hydrocephalus. Medications Medications Current Medications Acetaminophen (Acetaminophen 325 Mg Tablet) 650 mg PO Q6H PRN PRN Reason: Headache/Pain Mild Scale (1-3) Last Admin: 03/18/22 20:32 Dose: 650 mg Al Hydroxide/Mg Hydroxide (Magnesium Hydrox/Alum Hydrox 30 Ml Oral.Susp) 30 ml PO Q6H PRN PRN Reason: Heartburn/Nausea Amlodipine Besylate (Amlodipine Besylate 10 Mg Tablet) 10 mg PO DAILY [facility]; Protocol Last Admin: 03/19/22 10:18 Dose: 10 mg Artificial Tears (Artificial Tears 15 Ml Drops) 1 drop EYE-BOTH Q4H PRN PRN Reason: dry eyes Last Admin: 03/12/22 21:03 Dose: 1 drop Atorvastatin Calcium (Atorvastatin Calcium 80 Mg Tablet) 80 mg PO DAILY [facility] Last Admin: 03/19/22 10:18 Dose: 80 mg Carvedilol (Carvedilol 12.5 Mg Tablet) 12.5 mg PO BID [facility]; Protocol Last Admin: 03/19/22 10:17 Dose: 12.5 mg Divalproex Sodium (Divalproex Sodium 250 Mg Tablet.) 250 mg PO DAILY [facility] Last Admin: 03/19/22 10:18 Dose: 250 mg Divalproex Sodium (Divalproex Sodium 500 Mg Tablet.) 500 mg PO BEDTIME [facility] Last Admin: 03/18/22 20:33 Dose: 500 mg Donepezil HCl (Donepezil Hcl 10 Mg Tablet) 10 mg PO BEDTIME [facility] Last Admin: 03/18/22 20:33 Dose: 10 mg Guaifenesin/Dextromethorphan (Guaifenesin Dm 100/10/5 Ml 5 Ml Syrup) 10 ml PO Q4H PRN PRN Reason: cough Hydrochlorothiazide (Hydrochlorothiazide 25 Mg Tablet) 25 mg PO DAILY [facility]; Protocol Last Admin: 03/19/22 10:18 Dose: 25 mg Hydroxyzine HCl (Hydroxyzine Hcl 25 Mg Tablet) 25 mg PO Q6H PRN PRN Reason: Anxiety Last Admin: 03/18/22 20:33 Dose: 25 mg Levothyroxine Sodium (Levothyroxine Sodium 50 Mcg Tablet) 50 mcg PO DAILY@0600 [facility] Last Admin: 03/19/22 06:08 Dose: 50 mcg Magnesium Hydroxide (Milk Of Magnesia 30 Ml Oral.Susp) 30 ml PO DAILY PRN PRN Reason: Constipation Melatonin (Melatonin 3 Mg Tablet) 6 mg PO BEDTIME [facility] Last Admin: 03/18/22 20:34 Dose: 6 mg Melatonin (Melatonin 3 Mg Tablet) 3 mg PO BEDTIME PRN PRN Reason: insomnia Last Admin: 03/08/22 20:25 Dose: 3 mg Nystatin (Nystatin Powder 15 Gm Bottle) 1 appl TOPICAL BID [facility]; Protocol Last Admin: 03/18/22 20:35 Dose: Not Given Polyethylene Glycol (Polyethylene Glycol 3350 17 Gm Powd.Pack) 17 gm PO DAILY PRN PRN Reason: constipation Quetiapine Fumarate (Quetiapine Fumarate 50 Mg Tablet) 50 mg PO BEDTIME [facility] Last Admin: 03/18/22 20:33 Dose: 50 mg Senna/Docusate Sodium (Sennosides/Docusate Sodium Tablet) 1 tab PO DAILY PRN PRN Reason: constipation Sertraline HCl (Sertraline Hcl 50 Mg Tablet) 50 mg PO DAILY [facility] Last Admin: 03/19/22 10:19 Dose: 50 mg Trazodone HCl (Trazodone Hcl 50 Mg Tablet) 50 mg PO BEDTIME PRN PRN Reason: Insomnia Last Admin: 03/08/22 20:26 Dose: 50 mg Allergies Allergies Allergy/AdvReac Type Severity Reaction Status Date / Time No Known Allergies Allergy Verified 02/05/22 21:09 Assessment & Plan Assessment & Plan (1) Dementia: Status: Acute Code(s): F03.90 - Unspecified dementia, unspecified severity, without behavioral disturbance, psychotic disturbance, mood disturbance, and anxiety Assessment and Plan: Staff reports alteration in mental status in the last 2 days with decreased ability to function and listing to the left side. Rule out right parietal infarct. Recommendation: MRI of the brain without contrast. Waking EEG. (2) Bipolar disorder: Status: Acute Code(s): F31.9 - Bipolar disorder, unspecified Plan the patient is an elderly female with a past history of bipolar disorder, dementia Alzheimer's type for the last 6 months, admitted for recent exacerbation of psychosis and violent behavior.? Very poor historian unable to provide more information.? PLAN: 1. PT consult ordered 2.. Gather collateral information.? 3. Continue with regular medications.? 4. Discharge to assisted living facility Or penitentiary facility when ready 5. Increased Aricept to 10 mg p.o. q.h.s. on 02/15 6. Monitor BP 7. MRI and EEG ordered. We will follow the EEG results under was no seizure activity. 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 At this moment neurologically she is stable. 8. Continue recommendations of blood pressure medication as per hospitalist. 9. Waiting for placement I spent ___20___ minutes with the patient and/or on the patient floor today, greater than?50% of which was spent counseling/coordinating care. Reason for contiued inpatient stay Substantial Risk for: inability to function, rapid decompensation and med/psych decompensation
[2022-03-19] MEDS: Nystatin Powder 15 GM BOTTLE 1 APPL TOPICAL (15:30)
[2022-03-19] MEDS: Acetaminophen 325 MG TABLET 650 MG PO (18:22)
[2022-03-19 20:00] VITALS: BP 184/92; PULSE 67; RESP 16; TEMP 36.8; O2SAT 98
[2022-03-19] MEDS: Donepezil HCl 10 MG TABLET PO (21:03)
[2022-03-19] MEDS: Divalproex Sodium 500 MG TABLET.DR PO (21:03)
[2022-03-19] MEDS: QUEtiapine Fumarate 50 MG TABLET PO (21:03)
[2022-03-19] MEDS: Melatonin 3 MG TABLET 6 MG PO (21:03)
[2022-03-20] MEDS: Levothyroxine Sodium 50 MCG TABLET PO (05:57)
[2022-03-20 07:30] VITALS: BP 150/65; PULSE 66; RESP 16; TEMP 36.6; O2SAT 96
[2022-03-20] MEDS: carvediloL 12.5 MG TABLET PO ×2 (09:47→21:13)
[2022-03-20] MEDS: Atorvastatin Calcium 80 MG TABLET PO (09:48)
[2022-03-20] MEDS: Divalproex Sodium 250 MG TABLET.DR PO (09:48)
[2022-03-20] MEDS: Sertraline HCL 50 MG TABLET PO (09:48)
[2022-03-20] MEDS: hydroCHLOROthiazide 25 MG TABLET PO (09:48)
[2022-03-20] MEDS: amLODIPine Besylate 10 MG TABLET PO (09:48)
--- NOTE | 2022-03-20 11:30 | HO.PSYCHPN ---
Subjective Subjective Date of Service: 03/20/22 Reason For Visit: depression, anxiety, alzheimers Subjective Notes: Conditional Voluntary Interim History: The nursing staff reported the patient had been compliant with treatment she is at baseline. She was incontinent last night. The staff has noted that sometimes she has aggressive towards her roommate. The occupational therapy reported that she engages very well with staff. The social media executive reported that 1 of the facilities that we applied, it is closed due to COVID-19 restrictions. On interview the patient denies new symptoms. Mental Status Exam Mental Status Exam Patient Appearance: Well Grooomed Patient Orientation: Person and Situation Level of Consciousness: Awake Patient Behavior: Cooperative Mood Description: Suspicious and Withdrawn Affect Description: Labile Patient Cognition Impaired: Yes Ability to Follow Directions: Fair Speech Pattern: Clear Hallucinations: None Delusions: Not Present Thought Process: Linear Thought Content: positive for Circumstantial Judgement: Fair Diagnostics Vital Signs (24Hr): Vital Signs - 24 hr 03/19/22 20:00 Temperature 98.2 F Pulse Rate 67 Respiratory Rate 16 Blood Pressure 184/92 H Pulse Oximetry 98 Oxygen Delivery Method Room Air BMI result Body Mass Index 28.5 Labs Results: 02/28/22 07:59 03/05/22 07:44 Imaging Radiology Impressions: ITS Impressions Head CT 02/06/22 15:04 IMPRESSION: No acute intracranial hemorrhage or territorial infarction. Progressed moderate generalized parenchymal volume loss and mild to moderate chronic white matter microangiopathy. 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 Head CT 02/26/22 10:52 IMPRESSION: No acute intracranial hemorrhage or territorial infarction. Stable diffuse parenchymal volume loss and [id number] chronic white matter microangiopathy. Incompletely visualized moderate left maxillary sinus disease with chronic sclerotic wall thickening. 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 No evidence of acute territorial infarct. No intracranial mass effect or hydrocephalus. Medications Medications Current Medications Acetaminophen (Acetaminophen 325 Mg Tablet) 650 mg PO Q6H PRN PRN Reason: Headache/Pain Mild Scale (1-3) Last Admin: 03/19/22 18:22 Dose: 650 mg Al Hydroxide/Mg Hydroxide (Magnesium Hydrox/Alum Hydrox 30 Ml Oral.Susp) 30 ml PO Q6H PRN PRN Reason: Heartburn/Nausea Amlodipine Besylate (Amlodipine Besylate 10 Mg Tablet) 10 mg PO DAILY [facility]; Protocol Last Admin: 03/20/22 09:48 Dose: 10 mg Artificial Tears (Artificial Tears 15 Ml Drops) 1 drop EYE-BOTH Q4H PRN PRN Reason: dry eyes Last Admin: 03/12/22 21:03 Dose: 1 drop Atorvastatin Calcium (Atorvastatin Calcium 80 Mg Tablet) 80 mg PO DAILY [facility] Last Admin: 03/20/22 09:48 Dose: 80 mg Carvedilol (Carvedilol 12.5 Mg Tablet) 12.5 mg PO BID [facility]; Protocol Last Admin: 03/20/22 09:47 Dose: 12.5 mg Divalproex Sodium (Divalproex Sodium 250 Mg Tablet.) 250 mg PO DAILY [facility] Last Admin: 03/20/22 09:48 Dose: 250 mg Divalproex Sodium (Divalproex Sodium 500 Mg Tablet.) 500 mg PO BEDTIME [facility] Last Admin: 03/19/22 21:03 Dose: 500 mg Donepezil HCl (Donepezil Hcl 10 Mg Tablet) 10 mg PO BEDTIME [facility] Last Admin: 03/19/22 21:03 Dose: 10 mg Guaifenesin/Dextromethorphan (Guaifenesin Dm 100/10/5 Ml 5 Ml Syrup) 10 ml PO Q4H PRN PRN Reason: cough Hydrochlorothiazide (Hydrochlorothiazide 25 Mg Tablet) 25 mg PO DAILY [facility]; Protocol Last Admin: 03/20/22 09:48 Dose: 25 mg Hydroxyzine HCl (Hydroxyzine Hcl 25 Mg Tablet) 25 mg PO Q6H PRN PRN Reason: Anxiety Last Admin: 03/18/22 20:33 Dose: 25 mg Levothyroxine Sodium (Levothyroxine Sodium 50 Mcg Tablet) 50 mcg PO DAILY@0600 [facility] Last Admin: 03/20/22 05:57 Dose: 50 mcg Magnesium Hydroxide (Milk Of Magnesia 30 Ml Oral.Susp) 30 ml PO DAILY PRN PRN Reason: Constipation Melatonin (Melatonin 3 Mg Tablet) 6 mg PO BEDTIME [facility] Last Admin: 03/19/22 21:03 Dose: 6 mg Melatonin (Melatonin 3 Mg Tablet) 3 mg PO BEDTIME PRN PRN Reason: insomnia Last Admin: 03/08/22 20:25 Dose: 3 mg Nystatin (Nystatin Powder 15 Gm Bottle) 1 appl TOPICAL BID [facility]; Protocol Last Admin: 03/20/22 09:48 Dose: Not Given Polyethylene Glycol (Polyethylene Glycol 3350 17 Gm Powd.Pack) 17 gm PO DAILY PRN PRN Reason: constipation Quetiapine Fumarate (Quetiapine Fumarate 50 Mg Tablet) 50 mg PO BEDTIME [facility] Last Admin: 03/19/22 21:03 Dose: 50 mg Senna/Docusate Sodium (Sennosides/Docusate Sodium Tablet) 1 tab PO DAILY PRN PRN Reason: constipation Sertraline HCl (Sertraline Hcl 50 Mg Tablet) 50 mg PO DAILY [facility] Last Admin: 03/20/22 09:48 Dose: 50 mg Trazodone HCl (Trazodone Hcl 50 Mg Tablet) 50 mg PO BEDTIME PRN PRN Reason: Insomnia Last Admin: 03/08/22 20:26 Dose: 50 mg Allergies Allergies Allergy/AdvReac Type Severity Reaction Status Date / Time No Known Allergies Allergy Verified 02/05/22 21:09 Assessment & Plan Assessment & Plan (1) Dementia: Status: Acute Code(s): F03.90 - Unspecified dementia, unspecified severity, without behavioral disturbance, psychotic disturbance, mood disturbance, and anxiety Assessment and Plan: Staff reports alteration in mental status in the last 2 days with decreased ability to function and listing to the left side. Rule out right parietal infarct. Recommendation: MRI of the brain without contrast. Waking EEG. (2) Bipolar disorder: Status: Acute Code(s): F31.9 - Bipolar disorder, unspecified Plan the patient is an elderly female with a past history of bipolar disorder, dementia Alzheimer's type for the last 6 months, admitted for recent exacerbation of psychosis and violent behavior.? Very poor historian unable to provide more information.? PLAN: 1. PT consult ordered 2.. Gather collateral information.? 3. Continue with regular medications.? 4. Discharge to assisted living facility Or [facility] facility when ready 5. Increased Aricept to 10 mg p.o. q.h.s. on 02/15 6. Monitor BP 7. MRI and EEG ordered. We will follow the EEG results under was no seizure activity. 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 At this moment neurologically she is stable. 8. Continue recommendations of blood pressure medication as per hospitalist. 9. Waiting for placement I spent ___20___ minutes with the patient and/or on the patient floor today, greater than?50% of which was spent counseling/coordinating care. Reason for contiued inpatient stay Substantial Risk for: inability to function, rapid decompensation and med/psych decompensation
[2022-03-20 18:00] VITALS: BP 149/68; PULSE 58; RESP 15; TEMP 524.4; TEMP 976; O2SAT 95
[2022-03-20] MEDS: Acetaminophen 325 MG TABLET 650 MG PO (19:55)
[2022-03-20] MEDS: Melatonin 3 MG TABLET 6 MG PO (21:11)
[2022-03-20] MEDS: Divalproex Sodium 500 MG TABLET.DR PO (21:11)
[2022-03-20] MEDS: QUEtiapine Fumarate 50 MG TABLET PO (21:11)
[2022-03-20] MEDS: Donepezil HCl 10 MG TABLET PO (21:12)
[2022-03-21 06:00] VITALS: BP 157/72; PULSE 60; RESP 16; TEMP 35.7; O2SAT 96
[2022-03-21] MEDS: Acetaminophen 325 MG TABLET 650 MG PO ×2 (06:07→21:24)
[2022-03-21] MEDS: Levothyroxine Sodium 50 MCG TABLET PO (06:07)
[2022-03-21] MEDS: amLODIPine Besylate 10 MG TABLET PO (08:57)
[2022-03-21] MEDS: carvediloL 12.5 MG TABLET PO ×2 (08:57→20:17)
[2022-03-21] MEDS: hydroCHLOROthiazide 25 MG TABLET PO (08:57)
[2022-03-21] MEDS: Divalproex Sodium 250 MG TABLET.DR PO (08:57)
[2022-03-21] MEDS: Atorvastatin Calcium 80 MG TABLET PO (08:57)
[2022-03-21] MEDS: Sertraline HCL 50 MG TABLET PO (08:57)
--- NOTE | 2022-03-21 13:59 | P.PNPSI_ITS ---
Subjective Subjective Date of Service: 03/21/22 Reason For Visit: depression, anxiety, alzheimers Subjective Notes: Conditional Voluntary Interim History: The nursing staff reported the patient had been complain of back pain and she has used Tylenol. The social welfare clerk called the family and will receive financial information regarding the source of pain for her snf facility. The snf facility reported they will review her case once she is financially clear. On interview the patient denies new symptoms Mental Status Exam Mental Status Exam Patient Appearance: Well Grooomed and Appropriate Patient Orientation: Person and Situation Level of Consciousness: Awake and Appropriate Patient Behavior: Cooperative Mood Description: Withdrawn Affect Description: Constricted Patient Cognition Impaired: Yes Ability to Follow Directions: Good Speech Pattern: Clear Hallucinations: None Delusions: Not Present Thought Process: Linear Thought Content: positive for [place] and positive for Circumstantial Judgement: Fair Diagnostics Vital Signs (24Hr): Vital Signs - 24 hr 03/20/22 18:00 03/21/22 06:00 Temperature 976 F H 96.3 F L Pulse Rate 58 60 Respiratory Rate 15 16 Blood Pressure 149/68 H 157/72 H Pulse Oximetry 95 96 Oxygen Delivery Method Room Air Room Air BMI result Body Mass Index 28.5 Labs Results: 02/28/22 07:59 03/05/22 07:44 Imaging Radiology Impressions: ITS Impressions Head CT 02/06/22 15:04 IMPRESSION: No acute intracranial hemorrhage or territorial infarction. Progressed moderate generalized parenchymal volume loss and mild to moderate chronic white matter microangiopathy. 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 Head CT 02/26/22 10:52 IMPRESSION: No acute intracranial hemorrhage or territorial infarction. Stable diffuse parenchymal volume loss and [id number] chronic white matter microangiopathy. Incompletely visualized moderate left maxillary sinus disease with chronic sclerotic wall thickening. 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 No evidence of acute territorial infarct. No intracranial mass effect or hydrocephalus. Medications Medications Current Medications Acetaminophen (Acetaminophen 325 Mg Tablet) 650 mg PO Q6H PRN PRN Reason: Headache/Pain Mild Scale (1-3) Last Admin: 03/21/22 06:07 Dose: 650 mg Al Hydroxide/Mg Hydroxide (Magnesium Hydrox/Alum Hydrox 30 Ml Oral.Susp) 30 ml PO Q6H PRN PRN Reason: Heartburn/Nausea Amlodipine Besylate (Amlodipine Besylate 10 Mg Tablet) 10 mg PO DAILY [facility]; Protocol Last Admin: 03/21/22 08:57 Dose: 10 mg Artificial Tears (Artificial Tears 15 Ml Drops) 1 drop EYE-BOTH Q4H PRN PRN Reason: dry eyes Last Admin: 03/12/22 21:03 Dose: 1 drop Atorvastatin Calcium (Atorvastatin Calcium 80 Mg Tablet) 80 mg PO DAILY [facility] Last Admin: 03/21/22 08:57 Dose: 80 mg Carvedilol (Carvedilol 12.5 Mg Tablet) 12.5 mg PO BID [facility]; Protocol Last Admin: 03/21/22 08:57 Dose: 12.5 mg Divalproex Sodium (Divalproex Sodium 250 Mg Tablet.) 250 mg PO DAILY [facility] Last Admin: 03/21/22 08:57 Dose: 250 mg Divalproex Sodium (Divalproex Sodium 500 Mg Tablet.) 500 mg PO BEDTIME [facility] Last Admin: 03/20/22 21:11 Dose: 500 mg Donepezil HCl (Donepezil Hcl 10 Mg Tablet) 10 mg PO BEDTIME [facility] Last Admin: 03/20/22 21:12 Dose: 10 mg Guaifenesin/Dextromethorphan (Guaifenesin Dm 100/10/5 Ml 5 Ml Syrup) 10 ml PO Q4H PRN PRN Reason: cough Hydrochlorothiazide (Hydrochlorothiazide 25 Mg Tablet) 25 mg PO DAILY [facility]; Protocol Last Admin: 03/21/22 08:57 Dose: 25 mg Hydroxyzine HCl (Hydroxyzine Hcl 25 Mg Tablet) 25 mg PO Q6H PRN PRN Reason: Anxiety Last Admin: 03/18/22 20:33 Dose: 25 mg Levothyroxine Sodium (Levothyroxine Sodium 50 Mcg Tablet) 50 mcg PO DAILY@0600 [facility] Last Admin: 03/21/22 06:07 Dose: 50 mcg Magnesium Hydroxide (Milk Of Magnesia 30 Ml Oral.Susp) 30 ml PO DAILY PRN PRN Reason: Constipation Melatonin (Melatonin 3 Mg Tablet) 6 mg PO BEDTIME [facility] Last Admin: 03/20/22 21:11 Dose: 6 mg Melatonin (Melatonin 3 Mg Tablet) 3 mg PO BEDTIME PRN PRN Reason: insomnia Last Admin: 03/08/22 20:25 Dose: 3 mg Nystatin (Nystatin Powder 15 Gm Bottle) 1 appl TOPICAL BID [facility]; Protocol Last Admin: 03/21/22 08:57 Dose: Not Given Polyethylene Glycol (Polyethylene Glycol 3350 17 Gm Powd.Pack) 17 gm PO DAILY PRN PRN Reason: constipation Quetiapine Fumarate (Quetiapine Fumarate 50 Mg Tablet) 50 mg PO BEDTIME [facility] Last Admin: 03/20/22 21:11 Dose: 50 mg Senna/Docusate Sodium (Sennosides/Docusate Sodium Tablet) 1 tab PO DAILY PRN PRN Reason: constipation Sertraline HCl (Sertraline Hcl 50 Mg Tablet) 50 mg PO DAILY [facility] Last Admin: 03/21/22 08:57 Dose: 50 mg Trazodone HCl (Trazodone Hcl 50 Mg Tablet) 50 mg PO BEDTIME PRN PRN Reason: Insomnia Last Admin: 03/08/22 20:26 Dose: 50 mg Allergies Allergies Allergy/AdvReac Type Severity Reaction Status Date / Time No Known Allergies Allergy Verified 02/05/22 21:09 Assessment & Plan Assessment & Plan (1) Dementia: Status: Acute Code(s): F03.90 - Unspecified dementia, unspecified severity, without behavioral distu rbance, psychotic disturbance, mood disturbance, and anxiety Assessment and Plan: Staff reports alteration in mental status in the last 2 days with decreased ability to function and listing to the left side. Rule out right parietal infarct. Recommendation: MRI of the brain without contrast. Waking EEG. (2) Bipolar disorder: Status: Acute Code(s): F31.9 - Bipolar disorder, unspecified Plan the patient is an elderly female with a past history of bipolar disorder, dementia Alzheimer's type for the last 6 months, admitted for recent exacerbation of psychosis and violent behavior.? Very poor historian unable to provide more information.? PLAN: 1. PT consult ordered 2.. Gather collateral information.? 3. Continue with regular medications.? 4. Discharge to assisted living facility Or snf facility when ready 5. Increased Aricept to 10 mg p.o. q.h.s. on 02/15 6. Monitor BP 7. MRI and EEG ordered. We will follow the EEG results under was no seizure activity. 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 At this moment neurologically she is stable. 8. Continue recommendations of blood pressure medication as per hospitalist. 9. Waiting for placement I spent minutes with the patient and/or on the patient floor today, greater than?50% of which was spent counseling/coordinating care. Reason for contiued inpatient stay Substantial Risk for: inability to function, rapid decompensation and med/psych decompensation
[2022-03-21 18:00] VITALS: BP 133/65; PULSE 60; RESP 17; TEMP 36.7; O2SAT 94
[2022-03-21] MEDS: Donepezil HCl 10 MG TABLET PO (20:18)
[2022-03-21] MEDS: Melatonin 3 MG TABLET 6 MG PO (20:18)
[2022-03-21] MEDS: QUEtiapine Fumarate 50 MG TABLET PO (20:18)
[2022-03-21] MEDS: Divalproex Sodium 500 MG TABLET.DR PO (20:18)
[2022-03-22] MEDS: Levothyroxine Sodium 50 MCG TABLET PO (05:35)
[2022-03-22 06:00] VITALS: BP 137/74; PULSE 60; RESP 18; TEMP 36.2; O2SAT 99
[2022-03-22 07:00] VITALS: BMI 28.9
[2022-03-22] MEDS: Atorvastatin Calcium 80 MG TABLET PO (10:24)
[2022-03-22] MEDS: carvediloL 12.5 MG TABLET PO ×2 (10:24→20:05)
[2022-03-22] MEDS: Sertraline HCL 50 MG TABLET PO (10:25)
[2022-03-22] MEDS: amLODIPine Besylate 10 MG TABLET PO (10:25)
[2022-03-22] MEDS: Divalproex Sodium 250 MG TABLET.DR PO (10:25)
[2022-03-22] MEDS: hydroCHLOROthiazide 25 MG TABLET PO (10:25)
[2022-03-22] MEDS: Acetaminophen 325 MG TABLET 650 MG PO ×2 (12:30→20:47)
--- NOTE | 2022-03-22 12:36 | HO.PSYCHPN ---
Subjective Subjective Date of Service: 03/22/22 Reason For Visit: depression, anxiety, alzheimers Subjective Notes: Conditional Voluntary Interim History: The nursing staff reported that the patient shower yesterday. She was irritable with certain patients. The occupational therapy reported that she played bingo and she sarcastic at times but easily redirectable. She had a headache yesterday and she took Tylenol with for improvement. The social sciences chair reported that number ear for discharge the [facility] application. [facility] will reassess her as soon financial has been clear. On interview the patient denies new symptoms Mental Status Exam Mental Status Exam Patient Appearance: Well Grooomed and Appropriate Patient Orientation: Person and Situation Level of Consciousness: Awake and Appropriate Patient Behavior: Cooperative and Passive Mood Description: Calm Affect Description: Relaxed Patient Cognition Impaired: Yes Ability to Follow Directions: Good Speech Pattern: Clear Hallucinations: None Delusions: Not Present Thought Process: Distracted and Slowed Thinking Thought Content: positive for [place] and positive for Circumstantial Judgement: Fair Diagnostics Vital Signs (24Hr): Vital Signs - 24 hr 03/21/22 18:00 03/22/22 06:00 Temperature 98.1 F 97.2 F Pulse Rate 60 60 Respiratory Rate 17 18 Blood Pressure 133/65 137/74 Pulse Oximetry 94 99 Oxygen Delivery Method Room Air Room Air BMI result Body Mass Index 28.5 Labs Results: 02/28/22 07:59 03/05/22 07:44 Imaging Radiology Impressions: ITS Impressions Head CT 02/06/22 15:04 IMPRESSION: No acute intracranial hemorrhage or territorial infarction. Progressed moderate generalized parenchymal volume loss and mild to moderate chronic white matter microangiopathy. 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 Head CT 02/26/22 10:52 IMPRESSION: No acute intracranial hemorrhage or territorial infarction. Stable diffuse parenchymal volume loss and [id number] chronic white matter microangiopathy. Incompletely visualized moderate left maxillary sinus disease with chronic sclerotic wall thickening. 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 No evidence of acute territorial infarct. No intracranial mass effect or hydrocephalus. Medications Medications Current Medications Acetaminophen (Acetaminophen 325 Mg Tablet) 650 mg PO Q6H PRN PRN Reason: Headache/Pain Mild Scale (1-3) Last Admin: 03/22/22 12:30 Dose: 650 mg Al Hydroxide/Mg Hydroxide (Magnesium Hydrox/Alum Hydrox 30 Ml Oral.Susp) 30 ml PO Q6H PRN PRN Reason: Heartburn/Nausea Amlodipine Besylate (Amlodipine Besylate 10 Mg Tablet) 10 mg PO DAILY [facility]; Protocol Last Admin: 03/22/22 10:25 Dose: 10 mg Artificial Tears (Artificial Tears 15 Ml Drops) 1 drop EYE-BOTH Q4H PRN PRN Reason: dry eyes Last Admin: 03/12/22 21:03 Dose: 1 drop Atorvastatin Calcium (Atorvastatin Calcium 80 Mg Tablet) 80 mg PO DAILY [facility] Last Admin: 03/22/22 10:24 Dose: 80 mg Carvedilol (Carvedilol 12.5 Mg Tablet) 12.5 mg PO BID [facility]; Protocol Last Admin: 03/22/22 10:24 Dose: 12.5 mg Divalproex Sodium (Divalproex Sodium 250 Mg Tablet.) 250 mg PO DAILY [facility] Last Admin: 03/22/22 10:25 Dose: 250 mg Divalproex Sodium (Divalproex Sodium 500 Mg Tablet.) 500 mg PO BEDTIME [facility] Last Admin: 03/21/22 20:18 Dose: 500 mg Donepezil HCl (Donepezil Hcl 10 Mg Tablet) 10 mg PO BEDTIME [facility] Last Admin: 03/21/22 20:18 Dose: 10 mg Guaifenesin/Dextromethorphan (Guaifenesin Dm 100/10/5 Ml 5 Ml Syrup) 10 ml PO Q4H PRN PRN Reason: cough Hydrochlorothiazide (Hydrochlorothiazide 25 Mg Tablet) 25 mg PO DAILY [facility]; Protocol Last Admin: 03/22/22 10:25 Dose: 25 mg Hydroxyzine HCl (Hydroxyzine Hcl 25 Mg Tablet) 25 mg PO Q6H PRN PRN Reason: Anxiety Last Admin: 03/18/22 20:33 Dose: 25 mg Levothyroxine Sodium (Levothyroxine Sodium 50 Mcg Tablet) 50 mcg PO DAILY@0600 [facility] Last Admin: 03/22/22 05:35 Dose: 50 mcg Magnesium Hydroxide (Milk Of Magnesia 30 Ml Oral.Susp) 30 ml PO DAILY PRN PRN Reason: Constipation Melatonin (Melatonin 3 Mg Tablet) 6 mg PO BEDTIME [facility] Last Admin: 03/21/22 20:18 Dose: 6 mg Melatonin (Melatonin 3 Mg Tablet) 3 mg PO BEDTIME PRN PRN Reason: insomnia Last Admin: 03/08/22 20:25 Dose: 3 mg Nystatin (Nystatin Powder 15 Gm Bottle) 1 appl TOPICAL BID [facility]; Protocol Last Admin: 03/22/22 10:25 Dose: Not Given Polyethylene Glycol (Polyethylene Glycol 3350 17 Gm Powd.Pack) 17 gm PO DAILY PRN PRN Reason: constipation Quetiapine Fumarate (Quetiapine Fumarate 50 Mg Tablet) 50 mg PO BEDTIME [facility] Last Admin: 03/21/22 20:18 Dose: 50 mg Senna/Docusate Sodium (Sennosides/Docusate Sodium Tablet) 1 tab PO DAILY PRN PRN Reason: constipation Sertraline HCl (Sertraline Hcl 50 Mg Tablet) 50 mg PO DAILY [facility] Last Admin: 03/22/22 10:25 Dose: 50 mg Trazodone HCl (Trazodone Hcl 50 Mg Tablet) 50 mg PO BEDTIME PRN PRN Reason: Insomnia Last Admin: 03/08/22 20:26 Dose: 50 mg Allergies Allergies Allergy/AdvReac Type Severity Reaction Status Date / Time No Known Allergies Allergy Verified 02/05/22 21:09 Assessment & Plan Assessment & Plan (1) Dementia: Status: Acute Code(s): F03.90 - Unspecified dementia, unspecified severity, without behavioral disturbance, psychotic disturbance, mood disturbance, and anxiety Assessment and Plan: Staff reports alteration in mental status in the last 2 days with decreased ability to function and listing to the left side. Rule out right parietal infarct. Recommendation: MRI of the brain without contrast. Waking EEG. (2) Bipolar disorder: Status: Acute Code(s): F31.9 - Bipolar disorder, unspecified Plan the patient is an elderly female with a past history of bipolar disorder, dementia Alzheimer's type for the last 6 months, admitted for recent exacerbation of psychosis and violent behavior.? Very poor historian unable to provide more information.? PLAN: 1. PT consult ordered 2.. Gather collateral information.? 3. Continue with regular medications.? 4. Discharge to assisted living facility Or retirement facility when ready 5. Increased Aricept to 10 mg p.o. q.h.s. on 02/15 6. Monitor BP 7. MRI and EEG ordered. We will follow the EEG results under was no seizure activity. 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 At this moment neurologically she is stable. 8. Continue recommendations of blood pressure medication as per hospitalist. 9. Waiting for placement I spent __20____ minutes with the patient and/or on the patient floor today, greater than?50% of which was spent counseling/coordinating care. Reason for contiued inpatient stay Substantial Risk for: inability to function, rapid decompensation and med/psych decompensation
[2022-03-22 18:00] VITALS: BP 128/62; PULSE 58; RESP 16; TEMP 36.3; O2SAT 93
[2022-03-22] MEDS: Melatonin 3 MG TABLET 6 MG PO (20:04)
[2022-03-22] MEDS: Donepezil HCl 10 MG TABLET PO (20:04)
[2022-03-22] MEDS: QUEtiapine Fumarate 50 MG TABLET PO (20:04)
[2022-03-22] MEDS: Divalproex Sodium 500 MG TABLET.DR PO (20:05)
[2022-03-23] MEDS: Levothyroxine Sodium 50 MCG TABLET PO (06:19)
[2022-03-23] MEDS: amLODIPine Besylate 10 MG TABLET PO (09:03)
[2022-03-23] MEDS: Sertraline HCL 50 MG TABLET PO (09:03)
[2022-03-23] MEDS: Divalproex Sodium 250 MG TABLET.DR PO (09:03)
[2022-03-23] MEDS: carvediloL 12.5 MG TABLET PO ×2 (09:03→19:55)
[2022-03-23] MEDS: hydroCHLOROthiazide 25 MG TABLET PO (09:03)
[2022-03-23] MEDS: Atorvastatin Calcium 80 MG TABLET PO (09:03)
[2022-03-23 09:57] VITALS: BP 178/77; PULSE 55; RESP 15; TEMP 36.2; O2SAT 97
--- NOTE | 2022-03-23 12:40 | HO.PSYCHPN ---
Subjective Subjective Date of Service: 03/23/22 Reason For Visit: depression, anxiety, alzheimers Subjective Notes: Conditional Voluntary Interim History: The nursing staff reported the patient complained of headaches twice and she received Tylenol with fair effect. She slept well. The occupational therapist reported that she attended to the low function in groups. The web content & social media manager reported that the main barrier for discharge he has financial. The family has limited resources and they are applying for [employer]. Financial services are helping her with her entitlement. The web content & social media manager also reported that [facility] could take her if she has financially cleared. On interview there is no changes in her mental status Mental Status Exam Mental Status Exam Patient Appearance: Well Grooomed and Appropriate Patient Orientation: Person and Situation Level of Consciousness: Awake and Appropriate Patient Behavior: Guarded and Cooperative Mood Description: Withdrawn Affect Description: Constricted Ability to Follow Directions: Good Speech Pattern: Clear Hallucinations: None Delusions: Not Present Thought Process: Distracted Thought Content: positive for Circumstantial Judgement: Fair Diagnostics Vital Signs (24Hr): Vital Signs - 24 hr 03/22/22 18:00 03/23/22 09:57 Temperature 97.4 F 97.2 F Pulse Rate 58 55 Respiratory Rate 16 15 Blood Pressure 128/62 178/77 H Pulse Oximetry 93 97 Oxygen Delivery Method Room Air Room Air BMI result Body Mass Index 28.9 Labs Results: 02/28/22 07:59 03/05/22 07:44 Imaging Radiology Impressions: ITS Impressions Head CT 02/06/22 15:04 IMPRESSION: No acute intracranial hemorrhage or territorial infarction. Progressed moderate generalized parenchymal volume loss and mild to moderate chronic white matter microangiopathy. 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 Head CT 02/26/22 10:52 IMPRESSION: No acute intracranial hemorrhage or territorial infarction. Stable diffuse parenchymal volume loss and [id number] chronic white matter microangiopathy. Incompletely visualized moderate left maxillary sinus disease with chronic sclerotic wall thickening. 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 No evidence of acute territorial infarct. No intracranial mass effect or hydrocephalus. Medications Medications Current Medications Acetaminophen (Acetaminophen 325 Mg Tablet) 650 mg PO Q6H PRN PRN Reason: Headache/Pain Mild Scale (1-3) Last Admin: 03/22/22 20:47 Dose: 650 mg Al Hydroxide/Mg Hydroxide (Magnesium Hydrox/Alum Hydrox 30 Ml Oral.Susp) 30 ml PO Q6H PRN PRN Reason: Heartburn/Nausea Amlodipine Besylate (Amlodipine Besylate 10 Mg Tablet) 10 mg PO DAILY [facility]; Protocol Last Admin: 03/23/22 09:03 Dose: 10 mg Artificial Tears (Artificial Tears 15 Ml Drops) 1 drop EYE-BOTH Q4H PRN PRN Reason: dry eyes Last Admin: 03/12/22 21:03 Dose: 1 drop Atorvastatin Calcium (Atorvastatin Calcium 80 Mg Tablet) 80 mg PO DAILY [facility] Last Admin: 03/23/22 09:03 Dose: 80 mg Carvedilol (Carvedilol 12.5 Mg Tablet) 12.5 mg PO BID [facility]; Protocol Last Admin: 03/23/22 09:03 Dose: 12.5 mg Divalproex Sodium (Divalproex Sodium 250 Mg Tablet.) 250 mg PO DAILY [facility] Last Admin: 03/23/22 09:03 Dose: 250 mg Divalproex Sodium (Divalproex Sodium 500 Mg Tablet.) 500 mg PO BEDTIME [facility] Last Admin: 03/22/22 20:05 Dose: 500 mg Donepezil HCl (Donepezil Hcl 10 Mg Tablet) 10 mg PO BEDTIME [facility] Last Admin: 03/22/22 20:04 Dose: 10 mg Guaifenesin/Dextromethorphan (Guaifenesin Dm 100/10/5 Ml 5 Ml Syrup) 10 ml PO Q4H PRN PRN Reason: cough Hydrochlorothiazide (Hydrochlorothiazide 25 Mg Tablet) 25 mg PO DAILY [facility]; Protocol Last Admin: 03/23/22 09:03 Dose: 25 mg Hydroxyzine HCl (Hydroxyzine Hcl 25 Mg Tablet) 25 mg PO Q6H PRN PRN Reason: Anxiety Last Admin: 03/18/22 20:33 Dose: 25 mg Levothyroxine Sodium (Levothyroxine Sodium 50 Mcg Tablet) 50 mcg PO DAILY@0600 [facility] Last Admin: 03/23/22 06:19 Dose: 50 mcg Magnesium Hydroxide (Milk Of Magnesia 30 Ml Oral.Susp) 30 ml PO DAILY PRN PRN Reason: Constipation Melatonin (Melatonin 3 Mg Tablet) 6 mg PO BEDTIME [facility] Last Admin: 12/01/22 20:04 Dose: 6 mg Melatonin (Melatonin 3 Mg Tablet) 3 mg PO BEDTIME PRN PRN Reason: insomnia Last Admin: 03/08/22 20:25 Dose: 3 mg Nystatin (Nystatin Powder 15 Gm Bottle) 1 appl TOPICAL BID [facility]; Protocol Last Admin: 03/23/22 09:04 Dose: Not Given Polyethylene Glycol (Polyethylene Glycol 3350 17 Gm Powd.Pack) 17 gm PO DAILY PRN PRN Reason: constipation Quetiapine Fumarate (Quetiapine Fumarate 50 Mg Tablet) 50 mg PO BEDTIME [facility] Last Admin: 03/22/22 20:04 Dose: 50 mg Senna/Docusate Sodium (Sennosides/Docusate Sodium Tablet) 1 tab PO DAILY PRN PRN Reason: constipation Sertraline HCl (Sertraline Hcl 50 Mg Tablet) 50 mg PO DAILY [facility] Last Admin: 03/23/22 09:03 Dose: 50 mg Trazodone HCl (Trazodone Hcl 50 Mg Tablet) 50 mg PO BEDTIME PRN PRN Reason: Insomnia Last Admin: 03/08/22 20:26 Dose: 50 mg Allergies Allergies Allergy/AdvReac Type Severity Reaction Status Date / Time No Known Allergies Allergy Verified 02/05/22 21:09 Assessment & Plan Assessment & Plan (1) Dementia: Status: Acute Code(s): F03.90 - Unspecified dementia, unspecified severity, without behavioral disturbance, psychotic disturbance, mood disturbance, and anxiety Assessment and Plan: Staff reports alteration in mental status in the last 2 days with decreased ability to function and listing to the left side. Rule out right parietal infarct. Recommendation: MRI of the brain without contrast. Waking EEG. (2) Bipolar disorder: Status: Acute Code(s): F31.9 - Bipolar disorder, unspecified Plan the patient is an elderly female with a past history of bipolar disorder, dementia Alzheimer's type for the last 6 months, admitted for recent exacerbation of psychosis and violent behavior.? Very poor historian unable to provide more information.? PLAN: 1. PT consult ordered 2.. Gather collateral information.? 3. Continue with regular medications.? 4. Discharge to assisted living facility Or longterm facility when ready 5. Increased Aricept to 10 mg p.o. q.h.s. on 02/15 6. Monitor BP 7. MRI and EEG ordered. We will follow the EEG results under was no seizure activity. 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 At this moment neurologically she is stable. 8. Continue recommendations of blood pressure medication as per hospitalist. 9. Waiting for placement I spent __20____ minutes with the patient and/or on the patient floor today, greater than?50% of which was spent counseling/coordinating care. Reason for contiued inpatient stay Substantial Risk for: inability to function, rapid decompensation and med/psych decompensation
[2022-03-23 18:00] VITALS: BP 121/70; PULSE 62; RESP 14; TEMP 36.5; O2SAT 94
[2022-03-23] MEDS: Melatonin 3 MG TABLET 6 MG PO (19:54)
[2022-03-23] MEDS: Donepezil HCl 10 MG TABLET PO (19:55)
[2022-03-23] MEDS: Divalproex Sodium 500 MG TABLET.DR PO (19:55)
[2022-03-23] MEDS: QUEtiapine Fumarate 50 MG TABLET PO (19:55)
[2022-03-23] MEDS: Acetaminophen 325 MG TABLET 650 MG PO (19:55)
--- NOTE | 2022-03-24 01:48 | P.PNPSI_ITS ---
Subjective Subjective Date of Service: 03/24/22 Reason For Visit: depression, anxiety, alzheimers Interim History: Spoke with pt and team. Pt says Im fine, no questions or concerns, sleeping and eating well. Team says she is doing well per her baseline. Mental Status Exam Mental Status Exam Narrative: Patient Appearance: Well Grooomed and Appropriate Patient Orientation: Person and Situation Level of Consciousness: Awake and Appropriate Patient Behavior: Guarded and Cooperative Mood Description: Withdrawn Affect Description: Constricted Ability to Follow Directions: Good Speech Pattern: Clear Hallucinations: None Delusions: Not Present Thought Process: Distracted Thought Content: positive for Circumstantial Judgement: Fair Diagnostics Vital Signs (24Hr): Vital Signs - 24 hr 03/23/22 09:57 03/23/22 18:00 Temperature 97.2 F 97.7 F Pulse Rate 55 62 Respiratory Rate 15 14 Blood Pressure 178/77 H 121/70 Pulse Oximetry 97 94 Oxygen Delivery Method Room Air Room Air BMI result Body Mass Index 28.9 Labs Results: 02/28/22 07:59 03/05/22 07:44 Imaging Radiology Impressions: ITS Impressions Head CT 02/06/22 15:04 IMPRESSION: No acute intracranial hemorrhage or territorial infarction. Progressed moderate generalized parenchymal volume loss and mild to moderate chronic white matter microangiopathy. 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 Head CT 02/26/22 10:52 IMPRESSION: No acute intracranial hemorrhage or territorial infarction. Stable diffuse parenchymal volume loss and [id number] chronic white matter microangiopathy. Incompletely visualized moderate left maxillary sinus disease with chronic sclerotic wall thickening. 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 No evidence of acute territorial infarct. No intracranial mass effect or hydrocephalus. Medications Medications Current Medications Acetaminophen (Acetaminophen 325 Mg Tablet) 650 mg PO Q6H PRN PRN Reason: Headache/Pain Mild Scale (1-3) Last Admin: 03/23/22 19:55 Dose: 650 mg Al Hydroxide/Mg Hydroxide (Magnesium Hydrox/Alum Hydrox 30 Ml Oral.Susp) 30 ml PO Q6H PRN PRN Reason: Heartburn/Nausea Amlodipine Besylate (Amlodipine Besylate 10 Mg Tablet) 10 mg PO DAILY [facility]; Protocol Last Admin: 03/23/22 09:03 Dose: 10 mg Artificial Tears (Artificial Tears 15 Ml Drops) 1 drop EYE-BOTH Q4H PRN PRN Reason: dry eyes Last Admin: 03/12/22 21:03 Dose: 1 drop Atorvastatin Calcium (Atorvastatin Calcium 80 Mg Tablet) 80 mg PO DAILY [facility] Last Admin: 03/23/22 09:03 Dose: 80 mg Carvedilol (Carvedilol 12.5 Mg Tablet) 12.5 mg PO BID [facility]; Protocol Last Admin: 03/23/22 19:55 Dose: 12.5 mg Divalproex Sodium (Divalproex Sodium 250 Mg Tablet.) 250 mg PO DAILY [facility] Last Admin: 03/23/22 09:03 Dose: 250 mg Divalproex Sodium (Divalproex Sodium 500 Mg Tablet.) 500 mg PO BEDTIME [facility] Last Admin: 03/23/22 19:55 Dose: 500 mg Donepezil HCl (Donepezil Hcl 10 Mg Tablet) 10 mg PO BEDTIME [facility] Last Admin: 03/23/22 19:55 Dose: 10 mg Guaifenesin/Dextromethorphan (Guaifenesin Dm 100/10/5 Ml 5 Ml Syrup) 10 ml PO Q4H PRN PRN Reason: cough Hydrochlorothiazide (Hydrochlorothiazide 25 Mg Tablet) 25 mg PO DAILY [facility]; Protocol Last Admin: 03/23/22 09:03 Dose: 25 mg Hydroxyzine HCl (Hydroxyzine Hcl 25 Mg Tablet) 25 mg PO Q6H PRN PRN Reason: Anxiety Last Admin: 03/18/22 20:33 Dose: 25 mg Levothyroxine Sodium (Levothyroxine Sodium 50 Mcg Tablet) 50 mcg PO DAILY@0600 [facility] Last Admin: 03/23/22 06:19 Dose: 50 mcg Magnesium Hydroxide (Milk Of Magnesia 30 Ml Oral.Susp) 30 ml PO DAILY PRN PRN Reason: Constipation Melatonin (Melatonin 3 Mg Tablet) 6 mg PO BEDTIME [facility] Last Admin: 03/23/22 19:54 Dose: 6 mg Melatonin (Melatonin 3 Mg Tablet) 3 mg PO BEDTIME PRN PRN Reason: insomnia Last Admin: 03/08/22 20:25 Dose: 3 mg Nystatin (Nystatin Powder 15 Gm Bottle) 1 appl TOPICAL BID [facility]; Protocol Last Admin: 03/23/22 19:58 Dose: Not Given Polyethylene Glycol (Polyethylene Glycol 3350 17 Gm Powd.Pack) 17 gm PO DAILY PRN PRN Reason: constipation Quetiapine Fumarate (Quetiapine Fumarate 50 Mg Tablet) 50 mg PO BEDTIME [facility] Last Admin: 03/23/22 19:55 Dose: 50 mg Senna/Docusate Sodium (Sennosides/Docusate Sodium Tablet) 1 tab PO DAILY PRN PRN Reason: constipation Sertraline HCl (Sertraline Hcl 50 Mg Tablet) 50 mg PO DAILY [facility] Last Admin: 03/23/22 09:03 Dose: 50 mg Trazodone HCl (Trazodone Hcl 50 Mg Tablet) 50 mg PO BEDTIME PRN PRN Reason: Insomnia Last Admin: 03/08/22 20:26 Dose: 50 mg Allergies Allergies Allergy/AdvReac Type Severity Reaction Status Date / Time No Known Allergies Allergy Verified 02/05/22 21:09 Assessment & Plan Assessment & Plan (1) Dementia: Status: Acute Code(s): F03.90 - Unspecified dementia, unspecified severity, without behavioral disturbance, psychotic disturbance, mood disturbance, and anxiety Assessment and Plan: Staff reports alteration in mental status in the last 2 days with decreased ability to function and listing to the left side. Rule out right parietal infarct. Recommendation: MRI of the brain without contrast. Waking EEG. (2) Bipolar disorder: Status: Acute Code(s): F31.9 - Bipolar disorder, unspecified Plan the patient is an elderly female with a past history of bipolar disorder, dementia Alzheimer's type for the last 6 months, admitted for recent exacerbation of psychosis and violent behavior.? Very poor historian unable to provide more information.? PLAN: 1. PT consult ordered 2.. Gather collateral information.? 3. Continue with regular medications.? 4. Discharge to assisted living facility Or halfway facility when ready 5. Increased Aricept to 10 mg p.o. q.h.s. on 02/15 6. Monitor BP 7. MRI and EEG ordered. We will follow the EEG results under was no seizure activity. 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 At this moment neurologically she is stable. 8. Continue recommendations of blood pressure medication as per hospitalist. 9. Waiting for placement 03/24 no changes to above tx plan I spent minutes with the patient and/or on the patient floor today, greater than?50% of which was spent counseling/coordinating care. Patient educated on: therapeutic strategies Reason for contiued inpatient stay Substantial Risk for: inability to function and med/psych decompensation
[2022-03-24 06:00] VITALS: BP 159/78; PULSE 65; RESP 16; TEMP 36; O2SAT 97
[2022-03-24] MEDS: Levothyroxine Sodium 50 MCG TABLET PO (06:14)
[2022-03-24] MEDS: amLODIPine Besylate 10 MG TABLET PO (08:48)
[2022-03-24] MEDS: Divalproex Sodium 250 MG TABLET.DR PO (08:48)
[2022-03-24] MEDS: Atorvastatin Calcium 80 MG TABLET PO (08:48)
[2022-03-24] MEDS: hydroCHLOROthiazide 25 MG TABLET PO (08:48)
[2022-03-24] MEDS: Sertraline HCL 50 MG TABLET PO (08:48)
[2022-03-24] MEDS: carvediloL 12.5 MG TABLET PO ×2 (08:49→20:19)
[2022-03-24] MEDS: Acetaminophen 325 MG TABLET 650 MG PO (17:40)
[2022-03-24 18:00] VITALS: BP 125/77; PULSE 63; RESP 17; TEMP 35.8; O2SAT 97
[2022-03-24] MEDS: Melatonin 3 MG TABLET 6 MG PO (20:18)
[2022-03-24] MEDS: Divalproex Sodium 500 MG TABLET.DR PO (20:18)
[2022-03-24] MEDS: QUEtiapine Fumarate 50 MG TABLET PO (20:20)
[2022-03-24] MEDS: Donepezil HCl 10 MG TABLET PO (20:20)
[2022-03-24] MEDS: Nystatin Powder 15 GM BOTTLE 1 APPL TOPICAL (21:35)
[2022-03-25] MEDS: Levothyroxine Sodium 50 MCG TABLET PO (05:31)
[2022-03-25] MEDS: Acetaminophen 325 MG TABLET 650 MG PO ×2 (05:55→11:39)
[2022-03-25 06:00] VITALS: BP 138/81; PULSE 52; RESP 16; TEMP 36.8; O2SAT 97
[2022-03-25] MEDS: Nystatin Powder 15 GM BOTTLE 1 APPL TOPICAL ×2 (08:39→11:40)
[2022-03-25] MEDS: Sertraline HCL 50 MG TABLET PO (08:39)
[2022-03-25] MEDS: hydroCHLOROthiazide 25 MG TABLET PO (08:39)
[2022-03-25] MEDS: Atorvastatin Calcium 80 MG TABLET PO (08:39)
[2022-03-25] MEDS: carvediloL 12.5 MG TABLET PO (08:39)
[2022-03-25] MEDS: amLODIPine Besylate 10 MG TABLET PO (08:39)
[2022-03-25] MEDS: Divalproex Sodium 250 MG TABLET.DR PO (08:39)
--- NOTE | 2022-03-25 15:59 | PM.GPSY.DC ---
DS: Providers Provider Date of admission: 02/05/22 19:41 Primary care physician: Unknown Physician Consults: 02/05/22 21:09 Consult to Hospitalist Routine Consulting Provider: Hospitalist Reason For Exam: new admit from [place] 02/26/22 15:52 Consult to Neurology Routine Consulting Provider: [facility] [place] [facility] Reason for consultation: left neglect, nl CT-scan Has provider been notified: Yes 03/04/22 12:16 Consult to Hospitalist Routine Consulting Provider: Hospitalist Reason For Exam: labile BP, SBP recently > 200. DS: Diagnosis Discharge Diagnosis (1) Dementia: Status: Acute (2) Bipolar disorder: Status: Acute Geriatric Psych - D/C Summary Status at Discharge Most Recent Vital Signs: Last Vital Signs Temp 98.2 F 03/25/22 06:00 Pulse 52 03/25/22 06:00 Resp 16 03/25/22 06:00 BP 138/81 03/25/22 06:00 Pulse Ox 97 03/25/22 06:00 O2 Del Method 03/25/22 06:00 Time Spent with Patient Time attestation: Total time spent providing and/or coordinating discharge services: Geriatric Psychiatry - Exam Vital Signs and I&O: Vital Signs Temp 98.2 F 03/25/22 06:00 Pulse 52 03/25/22 06:00 Resp 16 03/25/22 06:00 BP 138/81 03/25/22 06:00 Pulse Ox 97 03/25/22 06:00 O2 Del Method 03/25/22 06:00 Discharge Plan Discharge Referrals: Physician,Unknown J [Primary Care Provider] - 1 Week
--- NOTE | 2022-03-25 16:00 | HO.PSYCHPN ---
Subjective Subjective Date of Service: 03/25/22 Reason For Visit: depression, anxiety, alzheimers Interim History: Spoke with pt and team. Pt says i dont like the winter months, wearing gloves around the unit. Says she is doing good. no questions or concerns. Denies physical health issues. Sleeping well. Mental Status Exam Mental Status Exam Narrative: Patient Appearance: Well Grooomed and Appropriate Patient Orientation: Person and Situation Level of Consciousness: Awake and Appropriate Patient Behavior: Guarded and Cooperative Mood Description: Withdrawn Affect Description: Constricted Ability to Follow Directions: Good Speech Pattern: Clear Hallucinations: None Delusions: Not Present Thought Process: Distracted Thought Content: positive for Circumstantial Judgement: Fair Diagnostics Vital Signs (24Hr): Vital Signs - 24 hr 03/24/22 18:00 03/25/22 06:00 Temperature 96.5 F L 98.2 F Pulse Rate 63 52 Respiratory Rate 17 16 Blood Pressure 125/77 138/81 Pulse Oximetry 97 97 Oxygen Delivery Method Room Air Room Air BMI result Body Mass Index 28.9 Labs Results: 02/28/22 07:59 03/05/22 07:44 Imaging Radiology Impressions: ITS Impressions Head CT 02/06/22 15:04 IMPRESSION: No acute intracranial hemorrhage or territorial infarction. Progressed moderate generalized parenchymal volume loss and mild to moderate chronic white matter microangiopathy. 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 Head CT 02/26/22 10:52 IMPRESSION: No acute intracranial hemorrhage or territorial infarction. Stable diffuse parenchymal volume loss and [id number] chronic white matter microangiopathy. Incompletely visualized moderate left maxillary sinus disease with chronic sclerotic wall thickening. 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 No evidence of acute territorial infarct. No intracranial mass effect or hydrocephalus. Medications Medications Current Medications Acetaminophen (Acetaminophen 325 Mg Tablet) 650 mg PO Q6H PRN PRN Reason: Headache/Pain Mild Scale (1-3) Last Admin: 03/25/22 11:39 Dose: 650 mg Al Hydroxide/Mg Hydroxide (Magnesium Hydrox/Alum Hydrox 30 Ml Oral.Susp) 30 ml PO Q6H PRN PRN Reason: Heartburn/Nausea Amlodipine Besylate (Amlodipine Besylate 10 Mg Tablet) 10 mg PO DAILY [facility]; Protocol Last Admin: 03/25/22 08:39 Dose: 10 mg Artificial Tears (Artificial Tears 15 Ml Drops) 1 drop EYE-BOTH Q4H PRN PRN Reason: dry eyes Last Admin: 03/12/22 21:03 Dose: 1 drop Atorvastatin Calcium (Atorvastatin Calcium 80 Mg Tablet) 80 mg PO DAILY [facility] Last Admin: 03/25/22 08:39 Dose: 80 mg Carvedilol (Carvedilol 12.5 Mg Tablet) 12.5 mg PO BID [facility]; Protocol Last Admin: 03/25/22 08:39 Dose: 12.5 mg Divalproex Sodium (Divalproex Sodium 250 Mg Tablet.Dr) 250 mg PO DAILY [facility] Last Admin: 03/25/22 08:39 Dose: 250 mg Divalproex Sodium (Divalproex Sodium 500 Mg Tablet.Dr) 500 mg PO BEDTIME [facility] Last Admin: 03/24/22 20:18 Dose: 500 mg Donepezil HCl (Donepezil Hcl 10 Mg Tablet) 10 mg PO BEDTIME [facility] Last Admin: 03/24/22 20:20 Dose: 10 mg Guaifenesin/Dextromethorphan (Guaifenesin Dm 100/10/5 Ml 5 Ml Syrup) 10 ml PO Q4H PRN PRN Reason: cough Hydrochlorothiazide (Hydrochlorothiazide 25 Mg Tablet) 25 mg PO DAILY [facility]; Protocol Last Admin: 03/25/22 08:39 Dose: 25 mg Hydroxyzine HCl (Hydroxyzine Hcl 25 Mg Tablet) 25 mg PO Q6H PRN PRN Reason: Anxiety Last Admin: 03/18/22 20:33 Dose: 25 mg Levothyroxine Sodium (Levothyroxine Sodium 50 Mcg Tablet) 50 mcg PO DAILY@0600 [facility] Last Admin: 03/25/22 05:31 Dose: 50 mcg Magnesium Hydroxide (Milk Of Magnesia 30 Ml Oral.Susp) 30 ml PO DAILY PRN PRN Reason: Constipation Melatonin (Melatonin 3 Mg Tablet) 6 mg PO BEDTIME [facility] Last Admin: 03/24/22 20:18 Dose: 6 mg Melatonin (Melatonin 3 Mg Tablet) 3 mg PO BEDTIME PRN PRN Reason: insomnia Last Admin: 03/08/22 20:25 Dose: 3 mg Nystatin (Nystatin Powder 15 Gm Bottle) 1 appl TOPICAL BID [facility]; Protocol Last Admin: 03/25/22 11:40 Dose: 1 appl Polyethylene Glycol (Polyethylene Glycol 3350 17 Gm Powd.Pack) 17 gm PO DAILY PRN PRN Reason: constipation Quetiapine Fumarate (Quetiapine Fumarate 50 Mg Tablet) 50 mg PO BEDTIME [facility] Last Admin: 03/24/22 20:20 Dose: 50 mg Senna/Docusate Sodium (Sennosides/Docusate Sodium Tablet) 1 tab PO DAILY PRN PRN Reason: constipation Sertraline HCl (Sertraline Hcl 50 Mg Tablet) 50 mg PO DAILY [facility] Last Admin: 03/25/22 08:39 Dose: 50 mg Trazodone HCl (Trazodone Hcl 50 Mg Tablet) 50 mg PO BEDTIME PRN PRN Reason: Insomnia Last Admin: 03/08/22 20:26 Dose: 50 mg Allergies Allergies Allergy/AdvReac Type Severity Reaction Status Date / Time No Known Allergies Allergy Verified 02/05/22 21:09 Assessment & Plan Assessment & Plan (1) Dementia: Status: Acute Code(s): F03.90 - Unspecified dementia, unspecified severity, without behavioral disturbance, psychotic disturbance, mood disturbance, and anxiety Assessment and Plan: Staff reports alteration in mental status in the last 2 days with decreased ability to function and listing to the left side. Rule out right parietal infarct. Recommendation: MRI of the brain without contrast. Waking EEG. (2) Bipolar disorder: Status: Acute Code(s): F31.9 - Bipolar disorder, unspecified Plan the patient is an elderly female with a past history of bipolar disorder, dementia Alzheimer's type for the last 6 months, admitted for recent exacerbation of psychosis and violent behavior.? Very poor historian unable to provide more information.? PLAN: 1. PT consult ordered 2.. Gather collateral information.? 3. Continue with regular medications.? 4. Discharge to assisted living facility Or shelter facility when ready 5. Increased Aricept to 10 mg p.o. q.h.s. on 02/15 6. Monitor BP 7. MRI and EEG ordered. We will follow the EEG results under was no seizure activity. 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 At this moment neurologically she is stable. 8. Continue recommendations of blood pressure medication as per hospitalist. 9. Waiting for placement 03/24 no changes to above tx plan 03/25 no changs to above tx plan I spent minutes with the patient and/or on the patient floor today, greater than?50% of which was spent counseling/coordinating care. Reason for contiued inpatient stay Substantial Risk for: inability to function and med/psych decompensation
[2022-03-25 18:00] VITALS: BP 136/74; PULSE 57; RESP 17; TEMP 36.3; O2SAT 98
[2022-03-25] MEDS: Divalproex Sodium 500 MG TABLET.DR PO (20:21)
[2022-03-25] MEDS: Donepezil HCl 10 MG TABLET PO (20:21)
[2022-03-25] MEDS: Melatonin 3 MG TABLET 6 MG PO (20:21)
[2022-03-25] MEDS: QUEtiapine Fumarate 50 MG TABLET PO (20:22)
[2022-03-26] MEDS: Levothyroxine Sodium 50 MCG TABLET PO (06:07)
[2022-03-26 10:00] VITALS: BP 136/64; PULSE 56; RESP 15; TEMP 36.4; O2SAT 96
[2022-03-26] MEDS: Atorvastatin Calcium 80 MG TABLET PO (10:52)
[2022-03-26] MEDS: hydroCHLOROthiazide 25 MG TABLET PO (10:52)
[2022-03-26] MEDS: Sertraline HCL 50 MG TABLET PO (10:52)
[2022-03-26] MEDS: Divalproex Sodium 250 MG TABLET.DR PO (10:52)
[2022-03-26] MEDS: amLODIPine Besylate 10 MG TABLET PO (10:52)
--- NOTE | 2022-03-26 12:41 | HO.PSYCHPN ---
Subjective Subjective Date of Service: 03/26/22 Reason For Visit: depression, anxiety, alzheimers Subjective Notes: Conditional Voluntary Interim History: The nursing staff reported the patient complains of pain on her foot. Her blood pressure was low on her Coreg was held. The adoption social worker reports that we are waiting for financial clearance for [facility] to [facility] facility. On interview the patient reports some pain, no new symptoms no evidence of alexandru or depression at this moment. Waiting for placement. Mental Status Exam Mental Status Exam Patient Appearance: Well Grooomed Patient Orientation: Person and Situation Level of Consciousness: Awake and Appropriate Patient Behavior: Cooperative Mood Description: Calm Affect Description: Constricted Patient Cognition Impaired: Yes Ability to Follow Directions: Good Speech Pattern: Clear Hallucinations: None Delusions: Not Present Thought Process: Distracted Thought Content: positive for [place], positive for Circumstantial and positive for Poverty of Content Judgement: Fair Diagnostics Vital Signs (24Hr): Vital Signs - 24 hr 03/25/22 18:00 03/26/22 10:00 Temperature 97.3 F 97.6 F Pulse Rate 57 56 Respiratory Rate 17 15 Blood Pressure 136/74 136/64 Pulse Oximetry 98 96 Oxygen Delivery Method Room Air Room Air BMI result Body Mass Index 28.9 Labs Results: 02/28/22 07:59 03/05/22 07:44 Imaging Radiology Impressions: ITS Impressions Head CT 02/06/22 15:04 IMPRESSION: No acute intracranial hemorrhage or territorial infarction. Progressed moderate generalized parenchymal volume loss and mild to moderate chronic white matter microangiopathy. 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 Head CT 02/26/22 10:52 IMPRESSION: No acute intracranial hemorrhage or territorial infarction. Stable diffuse parenchymal volume loss and [id number] chronic white matter microangiopathy. Incompletely visualized moderate left maxillary sinus disease with chronic sclerotic wall thickening. 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 No evidence of acute territorial infarct. No intracranial mass effect or hydrocephalus. Medications Medications Current Medications Acetaminophen (Acetaminophen 325 Mg Tablet) 650 mg PO Q6H PRN PRN Reason: Headache/Pain Mild Scale (1-3) Last Admin: 03/25/22 11:39 Dose: 650 mg Al Hydroxide/Mg Hydroxide (Magnesium Hydrox/Alum Hydrox 30 Ml Oral.Susp) 30 ml PO Q6H PRN PRN Reason: Heartburn/Nausea Amlodipine Besylate (Amlodipine Besylate 10 Mg Tablet) 10 mg PO DAILY [facility]; Protocol Last Admin: 03/26/22 10:52 Dose: 10 mg Artificial Tears (Artificial Tears 15 Ml Drops) 1 drop EYE-BOTH Q4H PRN PRN Reason: dry eyes Last Admin: 03/12/22 21:03 Dose: 1 drop Atorvastatin Calcium (Atorvastatin Calcium 80 Mg Tablet) 80 mg PO DAILY [facility] Last Admin: 03/26/22 10:52 Dose: 80 mg Carvedilol (Carvedilol 12.5 Mg Tablet) 12.5 mg PO BID [facility]; Protocol Last Admin: 03/26/22 10:53 Dose: Not Given Divalproex Sodium (Divalproex Sodium 250 Mg Tablet.) 250 mg PO DAILY [facility] Last Admin: 03/26/22 10:52 Dose: 250 mg Divalproex Sodium (Divalproex Sodium 500 Mg Tablet.) 500 mg PO BEDTIME [facility] Last Admin: 03/25/22 20:21 Dose: 500 mg Donepezil HCl (Donepezil Hcl 10 Mg Tablet) 10 mg PO BEDTIME [facility] Last Admin: 03/25/22 20:21 Dose: 10 mg Guaifenesin/Dextromethorphan (Guaifenesin Dm 100/10/5 Ml 5 Ml Syrup) 10 ml PO Q4H PRN PRN Reason: cough Hydrochlorothiazide (Hydrochlorothiazide 25 Mg Tablet) 25 mg PO DAILY [facility]; Protocol Last Admin: 03/26/22 10:52 Dose: 25 mg Hydroxyzine HCl (Hydroxyzine Hcl 25 Mg Tablet) 25 mg PO Q6H PRN PRN Reason: Anxiety Last Admin: 03/18/22 20:33 Dose: 25 mg Levothyroxine Sodium (Levothyroxine Sodium 50 Mcg Tablet) 50 mcg PO DAILY@0600 [facility] Last Admin: 03/26/22 06:07 Dose: 50 mcg Magnesium Hydroxide (Milk Of Magnesia 30 Ml Oral.Susp) 30 ml PO DAILY PRN PRN Reason: Constipation Melatonin (Melatonin 3 Mg Tablet) 6 mg PO BEDTIME [facility] Last Admin: 03/25/22 20:21 Dose: 6 mg Melatonin (Melatonin 3 Mg Tablet) 3 mg PO BEDTIME PRN PRN Reason: insomnia Last Admin: 03/08/22 20:25 Dose: 3 mg Nystatin (Nystatin Powder 15 Gm Bottle) 1 appl TOPICAL BID [facility]; Protocol Last Admin: 03/25/22 11:40 Dose: 1 appl Polyethylene Glycol (Polyethylene Glycol 3350 17 Gm Powd.Pack) 17 gm PO DAILY PRN PRN Reason: constipation Quetiapine Fumarate (Quetiapine Fumarate 50 Mg Tablet) 50 mg PO BEDTIME [facility] Last Admin: 03/25/22 20:22 Dose: 50 mg Senna/Docusate Sodium (Sennosides/Docusate Sodium Tablet) 1 tab PO DAILY PRN PRN Reason: constipation Sertraline HCl (Sertraline Hcl 50 Mg Tablet) 50 mg PO DAILY [facility] Last Admin: 03/26/22 10:52 Dose: 50 mg Trazodone HCl (Trazodone Hcl 50 Mg Tablet) 50 mg PO BEDTIME PRN PRN Reason: Insomnia Last Admin: 03/08/22 20:26 Dose: 50 mg Allergies Allergies Allergy/AdvReac Type Severity Reaction Status Date / Time No Known Allergies Allergy Verified 02/05/22 21:09 Assessment & Plan Assessment & Plan (1) Dementia: Status: Acute Code(s): F03.90 - Unspecified dementia, unspecified severity, without behavioral disturbance, psychotic disturbance, mood disturbance, and anxiety Assessment and Plan: Staff reports alteration in mental status in the last 2 days with decreased ability to function and listing to the left side. Rule out right parietal infarct. Recommendation: MRI of the brain without contrast. Waking EEG. (2) Bipolar disorder: Status: Acute Code(s): F31.9 - Bipolar disorder, unspecified Plan the patient is an elderly female with a past history of bipolar disorder, dementia Alzheimer's type for the last 6 months, admitted for recent exacerbation of psychosis and violent behavior.? Very poor historian unable to provide more information.? PLAN: 1. PT consult ordered 2.. Gather collateral information.? 3. Continue with regular medications.? 4. Discharge to assisted living facility Or [facility] facility when ready 5. Increased Aricept to 10 mg p.o. q.h.s. on 02/15 6. Monitor BP 7. MRI and EEG ordered. We will follow the EEG results under was no seizure activity. 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 At this moment neurologically she is stable. 8. Continue recommendations of blood pressure medication as per hospitalist. 9. Waiting for placement I spent __20____ minutes with the patient and/or on the patient floor today, greater than?50% of which was spent counseling/coordinating care. Reason for contiued inpatient stay Substantial Risk for: inability to function, rapid decompensation and med/psych decompensation
[2022-03-26 18:00] VITALS: BP 164/84; PULSE 67; RESP 14; TEMP 36.7; O2SAT 96
[2022-03-26] MEDS: Divalproex Sodium 500 MG TABLET.DR PO (20:37)
[2022-03-26] MEDS: Melatonin 3 MG TABLET 6 MG PO (20:37)
[2022-03-26] MEDS: QUEtiapine Fumarate 50 MG TABLET PO (20:37)
[2022-03-26] MEDS: Donepezil HCl 10 MG TABLET PO (20:37)
[2022-03-26] MEDS: carvediloL 12.5 MG TABLET PO (20:37)
[2022-03-27] MEDS: Levothyroxine Sodium 50 MCG TABLET PO (05:53)
[2022-03-27 09:30] VITALS: BP 117/63; PULSE 57; RESP 16; TEMP 36.4; O2SAT 100
[2022-03-27] MEDS: Sertraline HCL 50 MG TABLET PO (09:32)
[2022-03-27] MEDS: amLODIPine Besylate 10 MG TABLET PO (09:33)
[2022-03-27] MEDS: hydroCHLOROthiazide 25 MG TABLET PO (09:33)
[2022-03-27] MEDS: Divalproex Sodium 250 MG TABLET.DR PO (09:33)
[2022-03-27] MEDS: Atorvastatin Calcium 80 MG TABLET PO (09:35)
[2022-03-27] MEDS: Nystatin Powder 15 GM BOTTLE 1 APPL TOPICAL ×2 (09:36→21:05)
--- NOTE | 2022-03-27 13:33 | P.PNPSI_ITS ---
Subjective Subjective Date of Service: 03/27/22 Reason For Visit: depression, anxiety, alzheimers Subjective Notes: Conditional Voluntary Interim History: The nursing staff reported the patient had been compliant with treatment pleasant and cooperative wandering the whole week. Symptoms she has intrusive with other peers. She slept 8 hours. He the social work nurse reported that they are waiting for the [facility] application to come back on a apparently the family of the patient has psychotic environment and the family cannot take care of her. On interview the patient denies new symptoms she is pleasant and cooperative. Waiting for placement Mental Status Exam Mental Status Exam Patient Appearance: Well Grooomed Patient Orientation: Person and Situation Level of Consciousness: Awake and Appropriate Patient Behavior: Guarded and Cooperative Mood Description: Constricted Affect Description: Calm Patient Cognition Impaired: Yes Ability to Follow Directions: Good Speech Pattern: Clear Hallucinations: None Delusions: Not Present Thought Process: Distracted Thought Content: positive for [place] and positive for Circumstantial Judgement: Fair Diagnostics Vital Signs (24Hr): Vital Signs - 24 hr 03/26/22 18:00 Temperature 98.1 F Pulse Rate 67 Respiratory Rate 14 Blood Pressure 164/84 H Pulse Oximetry 96 Oxygen Delivery Method Room Air BMI result Body Mass Index 28.9 Labs Results: 02/28/22 07:59 03/05/22 07:44 Imaging Radiology Impressions: ITS Impressions Head CT 02/06/22 15:04 IMPRESSION: No acute intracranial hemorrhage or territorial infarction. Progressed moderate generalized parenchymal volume loss and mild to moderate chronic white matter microangiopathy. 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 Head CT 02/26/22 10:52 IMPRESSION: No acute intracranial hemorrhage or territorial infarction. Stable diffuse parenchymal volume loss and [id number] chronic white matter microangiopathy. Incompletely visualized moderate left maxillary sinus disease with chronic sclerotic wall thickening. 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 No evidence of acute territorial infarct. No intracranial mass effect or hydrocephalus. Medications Medications Current Medications Acetaminophen (Acetaminophen 325 Mg Tablet) 650 mg PO Q6H PRN PRN Reason: Headache/Pain Mild Scale (1-3) Last Admin: 03/25/22 11:39 Dose: 650 mg Al Hydroxide/Mg Hydroxide (Magnesium Hydrox/Alum Hydrox 30 Ml Oral.Susp) 30 ml PO Q6H PRN PRN Reason: Heartburn/Nausea Amlodipine Besylate (Amlodipine Besylate 10 Mg Tablet) 10 mg PO DAILY [facility]; Protocol Last Admin: 03/27/22 09:33 Dose: 10 mg Artificial Tears (Artificial Tears 15 Ml Drops) 1 drop EYE-BOTH Q4H PRN PRN Reason: dry eyes Last Admin: 03/12/22 21:03 Dose: 1 drop Atorvastatin Calcium (Atorvastatin Calcium 80 Mg Tablet) 80 mg PO DAILY [facility] Last Admin: 03/27/22 09:35 Dose: 80 mg Bacitracin (Bacitracin Oint 14 Gm Tube) 1 appl TOPICAL BID [facility]; Protocol Carvedilol (Carvedilol 12.5 Mg Tablet) 12.5 mg PO BID [facility]; Protocol Last Admin: 03/27/22 09:38 Dose: Not Given Divalproex Sodium (Divalproex Sodium 250 Mg Tablet.) 250 mg PO DAILY [facility] Last Admin: 03/27/22 09:33 Dose: 250 mg Divalproex Sodium (Divalproex Sodium 500 Mg Tablet.) 500 mg PO BEDTIME [facility] Last Admin: 03/26/22 20:37 Dose: 500 mg Donepezil HCl (Donepezil Hcl 10 Mg Tablet) 10 mg PO BEDTIME [facility] Last Admin: 03/26/22 20:37 Dose: 10 mg Guaifenesin/Dextromethorphan (Guaifenesin Dm 100/10/5 Ml 5 Ml Syrup) 10 ml PO Q4H PRN PRN Reason: cough Hydrochlorothiazide (Hydrochlorothiazide 25 Mg Tablet) 25 mg PO DAILY [facility]; Protocol Last Admin: 03/27/22 09:33 Dose: 25 mg Hydroxyzine HCl (Hydroxyzine Hcl 25 Mg Tablet) 25 mg PO Q6H PRN PRN Reason: Anxiety Last Admin: 03/18/22 20:33 Dose: 25 mg Levothyroxine Sodium (Levothyroxine Sodium 50 Mcg Tablet) 50 mcg PO DAILY@0600 [facility] Last Admin: 03/27/22 05:53 Dose: 50 mcg Magnesium Hydroxide (Milk Of Magnesia 30 Ml Oral.Susp) 30 ml PO DAILY PRN PRN Reason: Constipation Melatonin (Melatonin 3 Mg Tablet) 6 mg PO BEDTIME [facility] Last Admin: 03/26/22 20:37 Dose: 6 mg Melatonin (Melatonin 3 Mg Tablet) 3 mg PO BEDTIME PRN PRN Reason: insomnia Last Admin: 03/08/22 20:25 Dose: 3 mg Nystatin (Nystatin Powder 15 Gm Bottle) 1 appl TOPICAL BID [facility]; Protocol Last Admin: 03/27/22 09:36 Dose: 1 appl Polyethylene Glycol (Polyethylene Glycol 3350 17 Gm Powd.Pack) 17 gm PO DAILY PRN PRN Reason: constipation Quetiapine Fumarate (Quetiapine Fumarate 50 Mg Tablet) 50 mg PO BEDTIME [facility] Last Admin: 03/26/22 20:37 Dose: 50 mg Senna/Docusate Sodium (Sennosides/Docusate Sodium Tablet) 1 tab PO DAILY PRN PRN Reason: constipation Sertraline HCl (Sertraline Hcl 50 Mg Tablet) 50 mg PO DAILY [facility] Last Admin: 03/27/22 09:32 Dose: 50 mg Trazodone HCl (Trazodone Hcl 50 Mg Tablet) 50 mg PO BEDTIME PRN PRN Reason: Insomnia Last Admin: 03/08/22 20:26 Dose: 50 mg Allergies Allergies Allergy/AdvReac Type Severity Reaction Status Date / Time No Known Allergies Allergy Verified 02/05/22 21:09 Assessment & Plan Assessment & Plan (1) Dementia: Status: Acute Code(s): F03.90 - Unspecified dementia, unspecified severity, without behavioral disturbance, psychotic disturbance, mood disturbance, and anxiety Assessment and Plan: Staff reports alteration in mental status in the last 2 days with decreased ability to function and listing to the left side. Rule out right parietal infarct. Recommendation: MRI of the brain without contrast. Waking EEG. (2) Bipolar disorder: Status: Acute Code(s): F31.9 - Bipolar disorder, unspecified Plan the patient is an elderly female with a past history of bipolar disorder, dementia Alzheimer's type for the last 6 months, admitted for recent exacerbation of psychosis and violent behavior.? Very poor historian unable to provide more information.? PLAN: 1. PT consult ordered 2.. Gather collateral information.? 3. Continue with regular medications.? 4. Discharge to assisted living facility Or [facility] facility when ready 5. Increased Aricept to 10 mg p.o. q.h.s. on 02/15 6. Monitor BP 7. MRI and EEG ordered. We will follow the EEG results under was no seizure activity. 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 At this moment neurologically she is stable. 8. Continue recommendations of blood pressure medication as per hospitalist. 9. Waiting for placement I spent ___20___ minutes with the patient and/or on the patient floor today, greater than?50% of which was spent counseling/coordinating care. Reason for contiued inpatient stay Substantial Risk for: inability to function, rapid decompensation and med/psych decompensation
[2022-03-27 18:00] VITALS: BP 118/82; PULSE 70; RESP 18; TEMP 36.2; O2SAT 96
[2022-03-27] MEDS: Melatonin 3 MG TABLET 6 MG PO (20:26)
[2022-03-27] MEDS: Acetaminophen 325 MG TABLET 650 MG PO (20:26)
[2022-03-27] MEDS: Divalproex Sodium 500 MG TABLET.DR PO (20:27)
[2022-03-27] MEDS: hydrOXYzine HCL 25 MG TABLET PO (20:27)
[2022-03-27] MEDS: Melatonin 3 MG TABLET PO (20:27)
[2022-03-27] MEDS: Donepezil HCl 10 MG TABLET PO (20:27)
[2022-03-27] MEDS: QUEtiapine Fumarate 50 MG TABLET PO (20:27)
[2022-03-27] MEDS: carvediloL 12.5 MG TABLET PO (20:27)
[2022-03-27] MEDS: Bacitracin Oint 14 GM TUBE 1 APPL TOPICAL (21:05)
[2022-03-28] MEDS: Levothyroxine Sodium 50 MCG TABLET PO (05:59)
[2022-03-28 08:00] VITALS: BP 136/61; PULSE 61; RESP 17; TEMP 36.1; O2SAT 93
[2022-03-28] MEDS: carvediloL 12.5 MG TABLET PO (10:01)
[2022-03-28] MEDS: amLODIPine Besylate 10 MG TABLET PO (10:01)
[2022-03-28] MEDS: Atorvastatin Calcium 80 MG TABLET PO (10:01)
[2022-03-28] MEDS: hydroCHLOROthiazide 25 MG TABLET PO (10:02)
[2022-03-28] MEDS: Divalproex Sodium 250 MG TABLET.DR PO (10:02)
[2022-03-28] MEDS: Sertraline HCL 50 MG TABLET PO (10:02)
[2022-03-28] MEDS: Nystatin Powder 15 GM BOTTLE 1 APPL TOPICAL ×2 (10:03→20:30)
[2022-03-28] MEDS: Bacitracin Oint 14 GM TUBE 1 APPL TOPICAL ×2 (10:04→20:30)
--- NOTE | 2022-03-28 12:50 | HO.PSYCHPN ---
Subjective Subjective Date of Service: 03/28/22 Reason For Visit: depression, anxiety, alzheimers Subjective Notes: Conditional Voluntary Interim History: The nursing staff reported the patient had been compliant with treatment, she has attended a few groups and she is sarcastic at times with peers and staff but easily redirectable. On interview the patient denies new symptoms. Mental Status Exam Mental Status Exam Patient Appearance: Well Grooomed Patient Orientation: Person and Situation Level of Consciousness: Awake Patient Behavior: Cooperative and Passive Mood Description: Withdrawn Affect Description: Constricted Patient Cognition Impaired: Yes Ability to Follow Directions: Good Speech Pattern: Clear Hallucinations: None Delusions: Not Present Thought Process: Distracted Thought Content: positive for [place] and positive for Poverty of Content Judgement: Fair Diagnostics Vital Signs (24Hr): Vital Signs - 24 hr 03/27/22 18:00 03/28/22 08:00 Temperature 97.2 F 96.9 F Pulse Rate 70 61 Respiratory Rate 18 17 Blood Pressure 118/82 136/61 Pulse Oximetry 96 93 Oxygen Delivery Method Room Air Room Air BMI result Body Mass Index 28.9 Labs Results: 02/28/22 07:59 03/05/22 07:44 Imaging Radiology Impressions: ITS Impressions Head CT 02/06/22 15:04 IMPRESSION: No acute intracranial hemorrhage or territorial infarction. Progressed moderate generalized parenchymal volume loss and mild to moderate chronic white matter microangiopathy. 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 Head CT 02/26/22 10:52 IMPRESSION: No acute intracranial hemorrhage or territorial infarction. Stable diffuse parenchymal volume loss and [id number] chronic white matter microangiopathy. Incompletely visualized moderate left maxillary sinus disease with chronic sclerotic wall thickening. 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 No evidence of acute territorial infarct. No intracranial mass effect or hydrocephalus. Medications Medications Current Medications Acetaminophen (Acetaminophen 325 Mg Tablet) 650 mg PO Q6H PRN PRN Reason: Headache/Pain Mild Scale (1-3) Last Admin: 03/27/22 20:26 Dose: 650 mg Al Hydroxide/Mg Hydroxide (Magnesium Hydrox/Alum Hydrox 30 Ml Oral.Susp) 30 ml PO Q6H PRN PRN Reason: Heartburn/Nausea Amlodipine Besylate (Amlodipine Besylate 10 Mg Tablet) 10 mg PO DAILY [facility]; Protocol Last Admin: 03/28/22 10:01 Dose: 10 mg Artificial Tears (Artificial Tears 15 Ml Drops) 1 drop EYE-BOTH Q4H PRN PRN Reason: dry eyes Last Admin: 03/12/22 21:03 Dose: 1 drop Atorvastatin Calcium (Atorvastatin Calcium 80 Mg Tablet) 80 mg PO DAILY [facility] Last Admin: 03/28/22 10:01 Dose: 80 mg Bacitracin (Bacitracin Oint 14 Gm Tube) 1 appl TOPICAL BID [facility]; Protocol Last Admin: 03/28/22 10:04 Dose: 1 appl Carvedilol (Carvedilol 12.5 Mg Tablet) 12.5 mg PO BID [facility]; Protocol Last Admin: 03/28/22 10:01 Dose: 12.5 mg Divalproex Sodium (Divalproex Sodium 250 Mg Tablet.) 250 mg PO DAILY [facility] Last Admin: 03/28/22 10:02 Dose: 250 mg Divalproex Sodium (Divalproex Sodium 500 Mg Tablet.) 500 mg PO BEDTIME [facility] Last Admin: 03/27/22 20:27 Dose: 500 mg Donepezil HCl (Donepezil Hcl 10 Mg Tablet) 10 mg PO BEDTIME [facility] Last Admin: 03/27/22 20:27 Dose: 10 mg Guaifenesin/Dextromethorphan (Guaifenesin Dm 100/10/5 Ml 5 Ml Syrup) 10 ml PO Q4H PRN PRN Reason: cough Hydrochlorothiazide (Hydrochlorothiazide 25 Mg Tablet) 25 mg PO DAILY [facility]; Protocol Last Admin: 03/28/22 10:02 Dose: 25 mg Hydroxyzine HCl (Hydroxyzine Hcl 25 Mg Tablet) 25 mg PO Q6H PRN PRN Reason: Anxiety Last Admin: 03/27/22 20:27 Dose: 25 mg Levothyroxine Sodium (Levothyroxine Sodium 50 Mcg Tablet) 50 mcg PO DAILY@0600 [facility] Last Admin: 03/28/22 05:59 Dose: 50 mcg Magnesium Hydroxide (Milk Of Magnesia 30 Ml Oral.Susp) 30 ml PO DAILY PRN PRN Reason: Constipation Melatonin (Melatonin 3 Mg Tablet) 6 mg PO BEDTIME [facility] Last Admin: 03/27/22 20:26 Dose: 6 mg Melatonin (Melatonin 3 Mg Tablet) 3 mg PO BEDTIME PRN PRN Reason: insomnia Last Admin: 03/27/22 20:27 Dose: 3 mg Nystatin (Nystatin Powder 15 Gm Bottle) 1 appl TOPICAL BID [facility]; Protocol Last Admin: 03/28/22 10:03 Dose: 1 appl Polyethylene Glycol (Polyethylene Glycol 3350 17 Gm Powd.Pack) 17 gm PO DAILY PRN PRN Reason: constipation Quetiapine Fumarate (Quetiapine Fumarate 50 Mg Tablet) 50 mg PO BEDTIME [facility] Last Admin: 03/27/22 20:27 Dose: 50 mg Senna/Docusate Sodium (Sennosides/Docusate Sodium Tablet) 1 tab PO DAILY PRN PRN Reason: constipation Sertraline HCl (Sertraline Hcl 50 Mg Tablet) 50 mg PO DAILY [facility] Last Admin: 03/28/22 10:02 Dose: 50 mg Trazodone HCl (Trazodone Hcl 50 Mg Tablet) 50 mg PO BEDTIME PRN PRN Reason: Insomnia Last Admin: 03/08/22 20:26 Dose: 50 mg Allergies Allergies Allergy/AdvReac Type Severity Reaction Status Date / Time No Known Allergies Allergy Verified 02/05/22 21:09 Assessment & Plan Assessment & Plan (1) Dementia: Status: Acute Code(s): F03.90 - Unspecified dementia, unspecified severity, without behavioral disturbance, psychotic disturbance, mood disturbance, and anxiety Assessment and Plan: Staff reports alteration in mental status in the last 2 days with decreased ability to function and listing to the left side. Rule out right parietal infarct. Recommendation: MRI of the brain without contrast. Waking EEG. (2) Bipolar disorder: Status: Acute Code(s): F31.9 - Bipolar disorder, unspecified Plan the patient is an elderly female with a past history of bipolar disorder, dementia Alzheimer's type for the last 6 months, admitted for recent exacerbation of psychosis and violent behavior.? Very poor historian unable to provide more information.? PLAN: 1. PT consult ordered 2.. Gather collateral information.? 3. Continue with regular medications.? 4. Discharge to assisted living facility Or shelter facility when ready 5. Increased Aricept to 10 mg p.o. q.h.s. on 02/15 6. Monitor BP 7. MRI and EEG ordered. We will follow the EEG results under was no seizure activity. 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 At this moment neurologically she is stable. 8. Continue recommendations of blood pressure medication as per hospitalist. 9. Waiting for placement I spent ___20___ minutes with the patient and/or on the patient floor today, greater than?50% of which was spent counseling/coordinating care. Reason for contiued inpatient stay Substantial Risk for: inability to function, rapid decompensation and med/psych decompensation
[2022-03-28] MEDS: Acetaminophen 325 MG TABLET 650 MG PO ×2 (14:01→21:59)
[2022-03-28 18:00] VITALS: BP 114/77; PULSE 54; RESP 20; TEMP 36.1; O2SAT 95
[2022-03-28] MEDS: Melatonin 3 MG TABLET 6 MG PO (20:25)
[2022-03-28] MEDS: Donepezil HCl 10 MG TABLET PO (20:26)
[2022-03-28] MEDS: Divalproex Sodium 500 MG TABLET.DR PO (20:26)
[2022-03-28] MEDS: QUEtiapine Fumarate 50 MG TABLET PO (20:28)
[2022-03-29 06:00] VITALS: BP 119/76; PULSE 62; RESP 20; TEMP 36.2; O2SAT 93
[2022-03-29] MEDS: Levothyroxine Sodium 50 MCG TABLET PO (06:10)
[2022-03-29 07:00] VITALS: BMI 29.1
--- NOTE | 2022-03-29 08:16 | P.PNPSI_ITS ---
Subjective Subjective Date of Service: 03/29/22 Reason For Visit: depression, anxiety, alzheimers Subjective Notes: Conditional Voluntary Interim History: The nursing staff reported the patient has been pleasant and cooperative, even finding with staff. She took a shower yesterday. The staff has noticed that her toenails are very be and she could have complications with that. On interview the patient denies new symptoms she is waiting for placement. Mental Status Exam Mental Status Exam Patient Appearance: Well Grooomed and Appropriate Patient Orientation: Person, Place and Situation Level of Consciousness: Awake and Appropriate Patient Behavior: Cooperative Mood Description: Withdrawn Affect Description: Constricted Patient Cognition Impaired: Yes Ability to Follow Directions: Good Speech Pattern: Clear Hallucinations: None Delusions: Not Present Thought Process: Linear Thought Content: positive for Circumstantial Judgement: Fair Diagnostics Vital Signs (24Hr): Vital Signs - 24 hr 03/28/22 18:00 Temperature 96.9 F Pulse Rate 54 Respiratory Rate 20 Blood Pressure 114/77 Pulse Oximetry 95 Oxygen Delivery Method Room Air BMI result Body Mass Index 28.9 Labs Results: 02/28/22 07:59 03/05/22 07:44 Imaging Radiology Impressions: ITS Impressions Head CT 02/06/22 15:04 IMPRESSION: No acute intracranial hemorrhage or territorial infarction. Progressed moderate generalized parenchymal volume loss and mild to moderate chronic white matter microangiopathy. 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 Head CT 02/26/22 10:52 IMPRESSION: No acute intracranial hemorrhage or territorial infarction. Stable diffuse parenchymal volume loss and [id number] chronic white matter microangiopathy. Incompletely visualized moderate left maxillary sinus disease with chronic sclerotic wall thickening. 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 No evidence of acute territorial infarct. No intracranial mass effect or hydrocephalus. Medications Medications Current Medications Acetaminophen (Acetaminophen 325 Mg Tablet) 650 mg PO Q6H PRN PRN Reason: Headache/Pain Mild Scale (1-3) Last Admin: 03/28/22 21:59 Dose: 650 mg Al Hydroxide/Mg Hydroxide (Magnesium Hydrox/Alum Hydrox 30 Ml Oral.Susp) 30 ml PO Q6H PRN PRN Reason: Heartburn/Nausea Amlodipine Besylate (Amlodipine Besylate 10 Mg Tablet) 10 mg PO DAILY [facility]; Protocol Last Admin: 03/28/22 10:01 Dose: 10 mg Artificial Tears (Artificial Tears 15 Ml Drops) 1 drop EYE-BOTH Q4H PRN PRN Reason: dry eyes Last Admin: 03/12/22 21:03 Dose: 1 drop Atorvastatin Calcium (Atorvastatin Calcium 80 Mg Tablet) 80 mg PO DAILY [facility] Last Admin: 03/28/22 10:01 Dose: 80 mg Bacitracin (Bacitracin Oint 14 Gm Tube) 1 appl TOPICAL BID [facility]; Protocol Last Admin: 03/28/22 20:30 Dose: 1 appl Carvedilol (Carvedilol 12.5 Mg Tablet) 12.5 mg PO BID [facility]; Protocol Last Admin: 03/28/22 20:28 Dose: Not Given Divalproex Sodium (Divalproex Sodium 250 Mg Tablet.) 250 mg PO DAILY [facility] Last Admin: 03/28/22 10:02 Dose: 250 mg Divalproex Sodium (Divalproex Sodium 500 Mg Tablet.) 500 mg PO BEDTIME [facility] Last Admin: 03/28/22 20:26 Dose: 500 mg Donepezil HCl (Donepezil Hcl 10 Mg Tablet) 10 mg PO BEDTIME [facility] Last Admin: 03/28/22 20:26 Dose: 10 mg Guaifenesin/Dextromethorphan (Guaifenesin Dm 100/10/5 Ml 5 Ml Syrup) 10 ml PO Q4H PRN PRN Reason: cough Hydrochlorothiazide (Hydrochlorothiazide 25 Mg Tablet) 25 mg PO DAILY [facility]; Protocol Last Admin: 03/28/22 10:02 Dose: 25 mg Hydroxyzine HCl (Hydroxyzine Hcl 25 Mg Tablet) 25 mg PO Q6H PRN PRN Reason: Anxiety Last Admin: 03/27/22 20:27 Dose: 25 mg Levothyroxine Sodium (Levothyroxine Sodium 50 Mcg Tablet) 50 mcg PO DAILY@0600 [facility] Last Admin: 03/29/22 06:10 Dose: 50 mcg Magnesium Hydroxide (Milk Of Magnesia 30 Ml Oral.Susp) 30 ml PO DAILY PRN PRN Reason: Constipation Melatonin (Melatonin 3 Mg Tablet) 6 mg PO BEDTIME [facility] Last Admin: 03/28/22 20:25 Dose: 6 mg Melatonin (Melatonin 3 Mg Tablet) 3 mg PO BEDTIME PRN PRN Reason: insomnia Last Admin: 03/27/22 20:27 Dose: 3 mg Nystatin (Nystatin Powder 15 Gm Bottle) 1 appl TOPICAL BID [facility]; Protocol Last Admin: 03/28/22 20:30 Dose: 1 appl Polyethylene Glycol (Polyethylene Glycol 3350 17 Gm Powd.Pack) 17 gm PO DAILY PRN PRN Reason: constipation Quetiapine Fumarate (Quetiapine Fumarate 50 Mg Tablet) 50 mg PO BEDTIME [facility] Last Admin: 03/28/22 20:28 Dose: 50 mg Senna/Docusate Sodium (Sennosides/Docusate Sodium Tablet) 1 tab PO DAILY PRN PRN Reason: constipation Sertraline HCl (Sertraline Hcl 50 Mg Tablet) 50 mg PO DAILY [facility] Last Admin: 03/28/22 10:02 Dose: 50 mg Trazodone HCl (Trazodone Hcl 50 Mg Tablet) 50 mg PO BEDTIME PRN PRN Reason: Insomnia Last Admin: 03/08/22 20:26 Dose: 50 mg Allergies Allergies Allergy/AdvReac Type Severity Reaction Status Date / Time No Known Allergies Allergy Verified 02/05/22 21:09 Assessment & Plan Assessment & Plan (1) Dementia: Status: Acute Code(s): F03.90 - Unspecified dementia, unspecified severity, without behavioral disturbance, psychotic disturbance, mood disturbance, and anxiety Assessment and Plan: Staff reports alteration in mental status in the last 2 days with decreased ability to function and listing to the left side. Rule out right parietal infarct. Recommendation: MRI of the brain without contrast. Waking EEG. (2) Bipolar disorder: Status: Acute Code(s): F31.9 - Bipolar disorder, unspecified Plan the patient is an elderly female with a past history of bipolar disorder, dementia Alzheimer's type for the last 6 months, admitted for recent exacerbation of psychosis and violent behavior.? Very poor historian unable to provide more information.? PLAN: 1. PT consult ordered 2.. Gather collateral information.? 3. Continue with regular medications.? 4. Discharge to assisted living facility Or [facility] facility when ready 5. Increased Aricept to 10 mg p.o. q.h.s. on 02/15 6. Monitor BP 7. MRI and EEG ordered. We will follow the EEG results under was no seizure activity. 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 At this moment neurologically she is stable. 8. Continue recommendations of blood pressure medication as per hospitalist. 9. Waiting for placement I spent __20____ minutes with the patient and/or on the patient floor today, greater than?50% of which was spent counseling/coordinating care. Reason for contiued inpatient stay Substantial Risk for: inability to function, rapid decompensation and med/psych decompensation
[2022-03-29] MEDS: hydroCHLOROthiazide 25 MG TABLET PO (09:26)
[2022-03-29] MEDS: Atorvastatin Calcium 80 MG TABLET PO (09:26)
[2022-03-29] MEDS: Sertraline HCL 50 MG TABLET PO (09:26)
[2022-03-29] MEDS: amLODIPine Besylate 10 MG TABLET PO (09:26)
[2022-03-29] MEDS: carvediloL 12.5 MG TABLET PO ×2 (09:26→20:20)
[2022-03-29] MEDS: Divalproex Sodium 250 MG TABLET.DR PO (09:26)
[2022-03-29] MEDS: Bacitracin Oint 14 GM TUBE 1 APPL TOPICAL ×2 (11:16→20:19)
[2022-03-29 18:00] VITALS: BP 118/61; PULSE 62; RESP 16; TEMP 35.9; O2SAT 97
[2022-03-29] MEDS: Nystatin Powder 15 GM BOTTLE 1 APPL TOPICAL (20:19)
[2022-03-29] MEDS: Divalproex Sodium 500 MG TABLET.DR PO (20:20)
[2022-03-29] MEDS: Melatonin 3 MG TABLET 6 MG PO (20:20)
[2022-03-29] MEDS: Donepezil HCl 10 MG TABLET PO (20:20)
[2022-03-29] MEDS: QUEtiapine Fumarate 50 MG TABLET PO (20:21)
[2022-03-29] MEDS: Melatonin 3 MG TABLET PO (20:21)
[2022-03-29] MEDS: Acetaminophen 325 MG TABLET 650 MG PO (20:21)
[2022-03-30] MEDS: Levothyroxine Sodium 50 MCG TABLET PO (05:58)
[2022-03-30 08:20] VITALS: BP 113/62; PULSE 62; RESP 18; TEMP 36.7; O2SAT 97
[2022-03-30] MEDS: Atorvastatin Calcium 80 MG TABLET PO (10:20)
[2022-03-30] MEDS: amLODIPine Besylate 10 MG TABLET PO (10:20)
[2022-03-30] MEDS: carvediloL 12.5 MG TABLET PO ×2 (10:21→21:00)
[2022-03-30] MEDS: Sertraline HCL 50 MG TABLET PO (10:21)
[2022-03-30] MEDS: Divalproex Sodium 250 MG TABLET.DR PO (10:21)
[2022-03-30] MEDS: hydroCHLOROthiazide 25 MG TABLET PO (10:23)
--- NOTE | 2022-03-30 11:45 | HO.PSYCHPN ---
Subjective Subjective Date of Service: 03/30/22 Reason For Visit: depression, anxiety, alzheimers Subjective Notes: Conditional Voluntary Interim History: The nursing staff reported the patient has been visible in the unit, he has been socializing with peers and attended to groups. She slept 8 hours. The social work job titles spoke with the son who came yesterday and they were trying to contact the bank to help getting more financial information for aftercare. On interview the patient denies new symptoms she is pleasant and cooperative. Waiting for placement. Mental Status Exam Mental Status Exam Patient Appearance: Well Grooomed Patient Orientation: Person, Place and Situation Level of Consciousness: Awake and Appropriate Patient Behavior: Cooperative and Passive Mood Description: Calm Affect Description: Constricted Patient Cognition Impaired: Yes Ability to Follow Directions: Good Speech Pattern: Clear Hallucinations: None Delusions: Not Present Thought Process: Distracted and Linear Thought Content: positive for [place] and positive for Circumstantial Judgement: Fair Diagnostics Vital Signs (24Hr): Vital Signs - 24 hr 03/29/22 18:00 03/30/22 08:20 Temperature 96.6 F L 98.0 F Pulse Rate 62 62 Respiratory Rate 16 18 Blood Pressure 118/61 113/62 Pulse Oximetry 97 97 Oxygen Delivery Method Room Air Room Air BMI result Body Mass Index 29.1 Labs Results: 02/28/22 07:59 03/05/22 07:44 Imaging Radiology Impressions: ITS Impressions Head CT 02/06/22 15:04 IMPRESSION: No acute intracranial hemorrhage or territorial infarction. Progressed moderate generalized parenchymal volume loss and mild to moderate chronic white matter microangiopathy. 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 Head CT 02/26/22 10:52 IMPRESSION: No acute intracranial hemorrhage or territorial infarction. Stable diffuse parenchymal volume loss and [id number] chronic white matter microangiopathy. Incompletely visualized moderate left maxillary sinus disease with chronic sclerotic wall thickening. 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 No evidence of acute territorial infarct. No intracranial mass effect or hydrocephalus. Medications Medications Current Medications Acetaminophen (Acetaminophen 325 Mg Tablet) 650 mg PO Q6H PRN PRN Reason: Headache/Pain Mild Scale (1-3) Last Admin: 03/29/22 20:21 Dose: 650 mg Al Hydroxide/Mg Hydroxide (Magnesium Hydrox/Alum Hydrox 30 Ml Oral.Susp) 30 ml PO Q6H PRN PRN Reason: Heartburn/Nausea Amlodipine Besylate (Amlodipine Besylate 10 Mg Tablet) 10 mg PO DAILY [facility]; Protocol Last Admin: 03/30/22 10:20 Dose: 10 mg Artificial Tears (Artificial Tears 15 Ml Drops) 1 drop EYE-BOTH Q4H PRN PRN Reason: dry eyes Last Admin: 03/12/22 21:03 Dose: 1 drop Atorvastatin Calcium (Atorvastatin Calcium 80 Mg Tablet) 80 mg PO DAILY [facility] Last Admin: 03/30/22 10:20 Dose: 80 mg Bacitracin (Bacitracin Oint 14 Gm Tube) 1 appl TOPICAL BID [facility]; Protocol Last Admin: 03/29/22 20:19 Dose: 1 appl Carvedilol (Carvedilol 12.5 Mg Tablet) 12.5 mg PO BID [facility]; Protocol Last Admin: 03/30/22 10:21 Dose: 12.5 mg Divalproex Sodium (Divalproex Sodium 250 Mg Tablet.) 250 mg PO DAILY [facility] Last Admin: 03/30/22 10:21 Dose: 250 mg Divalproex Sodium (Divalproex Sodium 500 Mg Tablet.Dr) 500 mg PO BEDTIME [facility] Last Admin: 03/29/22 20:20 Dose: 500 mg Donepezil HCl (Donepezil Hcl 10 Mg Tablet) 10 mg PO BEDTIME [facility] Last Admin: 03/29/22 20:20 Dose: 10 mg Guaifenesin/Dextromethorphan (Guaifenesin Dm 100/10/5 Ml 5 Ml Syrup) 10 ml PO Q4H PRN PRN Reason: cough Hydrochlorothiazide (Hydrochlorothiazide 25 Mg Tablet) 25 mg PO DAILY [facility]; Protocol Last Admin: 03/30/22 10:23 Dose: 25 mg Hydroxyzine HCl (Hydroxyzine Hcl 25 Mg Tablet) 25 mg PO Q6H PRN PRN Reason: Anxiety Last Admin: 03/27/22 20:27 Dose: 25 mg Levothyroxine Sodium (Levothyroxine Sodium 50 Mcg Tablet) 50 mcg PO DAILY@0600 [facility] Last Admin: 03/30/22 05:58 Dose: 50 mcg Magnesium Hydroxide (Milk Of Magnesia 30 Ml Oral.Susp) 30 ml PO DAILY PRN PRN Reason: Constipation Melatonin (Melatonin 3 Mg Tablet) 6 mg PO BEDTIME [facility] Last Admin: 03/29/22 20:20 Dose: 6 mg Melatonin (Melatonin 3 Mg Tablet) 3 mg PO BEDTIME PRN PRN Reason: insomnia Last Admin: 03/29/22 20:21 Dose: 3 mg Nystatin (Nystatin Powder 15 Gm Bottle) 1 appl TOPICAL BID [facility]; Protocol Last Admin: 03/29/22 20:19 Dose: 1 appl Polyethylene Glycol (Polyethylene Glycol 3350 17 Gm Powd.Pack) 17 gm PO DAILY PRN PRN Reason: constipation Quetiapine Fumarate (Quetiapine Fumarate 50 Mg Tablet) 50 mg PO BEDTIME [facility] Last Admin: 03/29/22 20:21 Dose: 50 mg Senna/Docusate Sodium (Sennosides/Docusate Sodium Tablet) 1 tab PO DAILY PRN PRN Reason: constipation Sertraline HCl (Sertraline Hcl 50 Mg Tablet) 50 mg PO DAILY [facility] Last Admin: 03/30/22 10:21 Dose: 50 mg Trazodone HCl (Trazodone Hcl 50 Mg Tablet) 50 mg PO BEDTIME PRN PRN Reason: Insomnia Last Admin: 03/08/22 20:26 Dose: 50 mg Allergies Allergies Allergy/AdvReac Type Severity Reaction Status Date / Time No Known Allergies Allergy Verified 02/05/22 21:09 Assessment & Plan Assessment & Plan (1) Dementia: Status: Acute Code(s): F03.90 - Unspecified dementia, unspecified severity, without behavioral disturbance, psychotic disturbance, mood disturbance, and anxiety Assessment and Plan: Staff reports alteration in mental status in the last 2 days with decreased ability to function and listing to the left side. Rule out right parietal infarct. Recommendation: MRI of the brain without contrast. Waking EEG. (2) Bipolar disorder: Status: Acute Code(s): F31.9 - Bipolar disorder, unspecified Plan the patient is an elderly female with a past history of bipolar disorder, dementia Alzheimer's type for the last 6 months, admitted for recent exacerbation of psychosis and violent behavior.? Very poor historian unable to provide more information.? PLAN: 1. PT consult ordered 2.. Gather collateral information.? 3. Continue with regular medications.? 4. Discharge to assisted living facility Or assisted facility when ready 5. Increased Aricept to 10 mg p.o. q.h.s. on 02/15 6. Monitor BP 7. MRI and EEG ordered. We will follow the EEG results under was no seizure activity. 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 At this moment neurologically she is stable. 8. Continue recommendations of blood pressure medication as per hospitalist. 9. Waiting for placement I spent ___20___ minutes with the patient and/or on the patient floor today, greater than?50% of which was spent counseling/coordinating care. Reason for contiued inpatient stay Substantial Risk for: inability to function, rapid decompensation and med/psych decompensation
[2022-03-30] MEDS: Bacitracin Oint 14 GM TUBE 1 APPL TOPICAL ×2 (13:26→21:01)
[2022-03-30] MEDS: Nystatin Powder 15 GM BOTTLE 1 APPL TOPICAL ×2 (13:26→21:06)
[2022-03-30] MEDS: Acetaminophen 325 MG TABLET 650 MG PO ×2 (13:44→20:15)
[2022-03-30 18:00] VITALS: BP 110/58; PULSE 57; RESP 16; TEMP 36.5; O2SAT 98
[2022-03-30] MEDS: QUEtiapine Fumarate 50 MG TABLET PO (21:00)
[2022-03-30] MEDS: Donepezil HCl 10 MG TABLET PO (21:00)
[2022-03-30] MEDS: Divalproex Sodium 500 MG TABLET.DR PO (21:00)
[2022-03-30] MEDS: Melatonin 3 MG TABLET 6 MG PO (21:01)
[2022-03-31] MEDS: Levothyroxine Sodium 50 MCG TABLET PO (05:51)
[2022-03-31 08:00] VITALS: BP 133/64; PULSE 65; RESP 15; TEMP 36.2; O2SAT 95
[2022-03-31] MEDS: hydroCHLOROthiazide 25 MG TABLET PO (08:22)
[2022-03-31] MEDS: amLODIPine Besylate 10 MG TABLET PO (08:23)
[2022-03-31] MEDS: Sertraline HCL 50 MG TABLET PO (08:23)
[2022-03-31] MEDS: Divalproex Sodium 250 MG TABLET.DR PO (08:23)
[2022-03-31] MEDS: Atorvastatin Calcium 80 MG TABLET PO (08:23)
[2022-03-31] MEDS: Bacitracin Oint 14 GM TUBE 1 APPL TOPICAL ×2 (08:24→20:36)
[2022-03-31] MEDS: carvediloL 12.5 MG TABLET PO ×2 (08:24→20:36)
[2022-03-31] MEDS: Nystatin Powder 15 GM BOTTLE 1 APPL TOPICAL ×2 (09:21→20:36)
[2022-03-31] MEDS: Acetaminophen 325 MG TABLET 650 MG PO (11:41)
[2022-03-31 18:00] VITALS: BP 134/66; PULSE 64; RESP 14; TEMP 36.8; O2SAT 93
[2022-03-31] MEDS: Divalproex Sodium 500 MG TABLET.DR PO (20:36)
[2022-03-31] MEDS: Donepezil HCl 10 MG TABLET PO (20:36)
[2022-03-31] MEDS: Melatonin 3 MG TABLET 6 MG PO (20:36)
[2022-03-31] MEDS: QUEtiapine Fumarate 50 MG TABLET PO (20:37)
--- NOTE | 2022-03-31 20:58 | HO.PSYCHPN ---
Subjective Subjective Date of Service: 03/31/22 Reason For Visit: depression, anxiety, alzheimers Interim History: Patient has generally been stable and cooperative social in the milieu Mental Status Exam Mental Status Exam Patient Appearance: Well Grooomed Patient Orientation: Person, Place and Situation Level of Consciousness: Awake and Appropriate Patient Behavior: Cooperative and Passive Mood Description: Calm Affect Description: Constricted Patient Cognition Impaired: Yes Ability to Follow Directions: Good Speech Pattern: Clear Hallucinations: None Delusions: Not Present Thought Process: Distracted and Linear Thought Content: positive for [place] and positive for Circumstantial Judgement: Fair Diagnostics Vital Signs (24Hr): Vital Signs - 24 hr 03/31/22 08:00 Temperature 97.1 F Pulse Rate 65 Respiratory Rate 15 Blood Pressure 133/64 Pulse Oximetry 95 Oxygen Delivery Method Room Air BMI result Body Mass Index 29.1 Labs Results: 02/28/22 07:59 03/05/22 07:44 Imaging Radiology Impressions: ITS Impressions Head CT 02/06/22 15:04 IMPRESSION: No acute intracranial hemorrhage or territorial infarction. Progressed moderate generalized parenchymal volume loss and mild to moderate chronic white matter microangiopathy. 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 Head CT 02/26/22 10:52 IMPRESSION: No acute intracranial hemorrhage or territorial infarction. Stable diffuse parenchymal volume loss and [id number] chronic white matter microangiopathy. Incompletely visualized moderate left maxillary sinus disease with chronic sclerotic wall thickening. 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 No evidence of acute territorial infarct. No intracranial mass effect or hydrocephalus. Medications Medications Current Medications Acetaminophen (Acetaminophen 325 Mg Tablet) 650 mg PO Q6H PRN PRN Reason: Headache/Pain Mild Scale (1-3) Last Admin: 03/31/22 11:41 Dose: 650 mg Al Hydroxide/Mg Hydroxide (Magnesium Hydrox/Alum Hydrox 30 Ml Oral.Susp) 30 ml PO Q6H PRN PRN Reason: Heartburn/Nausea Amlodipine Besylate (Amlodipine Besylate 10 Mg Tablet) 10 mg PO DAILY [facility]; Protocol Last Admin: 03/31/22 08:23 Dose: 10 mg Artificial Tears (Artificial Tears 15 Ml Drops) 1 drop EYE-BOTH Q4H PRN PRN Reason: dry eyes Last Admin: 03/12/22 21:03 Dose: 1 drop Atorvastatin Calcium (Atorvastatin Calcium 80 Mg Tablet) 80 mg PO DAILY [facility] Last Admin: 03/31/22 08:23 Dose: 80 mg Bacitracin (Bacitracin Oint 14 Gm Tube) 1 appl TOPICAL BID [facility]; Protocol Last Admin: 03/31/22 20:36 Dose: 1 appl Carvedilol (Carvedilol 12.5 Mg Tablet) 12.5 mg PO BID [facility]; Protocol Last Admin: 03/31/22 20:36 Dose: 12.5 mg Divalproex Sodium (Divalproex Sodium 250 Mg Tablet.Dr) 250 mg PO DAILY [facility] Last Admin: 03/31/22 08:23 Dose: 250 mg Divalproex Sodium (Divalproex Sodium 500 Mg Tablet.Dr) 500 mg PO BEDTIME [facility] Last Admin: 03/31/22 20:36 Dose: 500 mg Donepezil HCl (Donepezil Hcl 10 Mg Tablet) 10 mg PO BEDTIME [facility] Last Admin: 03/31/22 20:36 Dose: 10 mg Guaifenesin/Dextromethorphan (Guaifenesin Dm 100/10/5 Ml 5 Ml Syrup) 10 ml PO Q4H PRN PRN Reason: cough Hydrochlorothiazide (Hydrochlorothiazide 25 Mg Tablet) 25 mg PO DAILY [facility]; Protocol Last Admin: 03/31/22 08:22 Dose: 25 mg Hydroxyzine HCl (Hydroxyzine Hcl 25 Mg Tablet) 25 mg PO Q6H PRN PRN Reason: Anxiety Last Admin: 03/27/22 20:27 Dose: 25 mg Levothyroxine Sodium (Levothyroxine Sodium 50 Mcg Tablet) 50 mcg PO DAILY@0600 [facility] Last Admin: 03/31/22 05:51 Dose: 50 mcg Magnesium Hydroxide (Milk Of Magnesia 30 Ml Oral.Susp) 30 ml PO DAILY PRN PRN Reason: Constipation Melatonin (Melatonin 3 Mg Tablet) 6 mg PO BEDTIME [facility] Last Admin: 03/31/22 20:36 Dose: 6 mg Melatonin (Melatonin 3 Mg Tablet) 3 mg PO BEDTIME PRN PRN Reason: insomnia Last Admin: 03/29/22 20:21 Dose: 3 mg Nystatin (Nystatin Powder 15 Gm Bottle) 1 appl TOPICAL BID [facility]; Protocol Last Admin: 03/31/22 20:36 Dose: 1 appl Polyethylene Glycol (Polyethylene Glycol 3350 17 Gm Powd.Pack) 17 gm PO DAILY PRN PRN Reason: constipation Quetiapine Fumarate (Quetiapine Fumarate 50 Mg Tablet) 50 mg PO BEDTIME [facility] Last Admin: 03/31/22 20:37 Dose: 50 mg Senna/Docusate Sodium (Sennosides/Docusate Sodium Tablet) 1 tab PO DAILY PRN PRN Reason: constipation Sertraline HCl (Sertraline Hcl 50 Mg Tablet) 50 mg PO DAILY [facility] Last Admin: 03/31/22 08:23 Dose: 50 mg Trazodone HCl (Trazodone Hcl 50 Mg Tablet) 50 mg PO BEDTIME PRN PRN Reason: Insomnia Last Admin: 03/08/22 20:26 Dose: 50 mg Allergies Allergies Allergy/AdvReac Type Severity Reaction Status Date / Time No Known Allergies Allergy Verified 02/05/22 21:09 Assessment & Plan Assessment & Plan (1) Dementia: Status: Acute Code(s): F03.90 - Unspecified dementia, unspecified severity, without behavioral disturbance, psychotic disturbance, mood disturbance, and anxiety Assessment and Plan: Staff reports alteration in mental status in the last 2 days with decreased ability to function and listing to the left side. Rule out right parietal infarct. Recommendation: MRI of the brain without contrast. Waking EEG. (2) Bipolar disorder: Status: Acute Code(s): F31.9 - Bipolar disorder, unspecified Plan the patient is an elderly female with a past history of bipolar disorder, dementia Alzheimer's type for the last 6 months, admitted for recent exacerbation of psychosis and violent behavior.? Very poor historian unable to provide more information.? PLAN: 1. PT consult ordered 2.. Gather collateral information.? 3. Continue with regular medications.? 4. Discharge to assisted living facility Or care home facility when ready 5. Increased Aricept to 10 mg p.o. q.h.s. on 02/15 6. Monitor BP 7. MRI and EEG ordered. We will follow the EEG results under was no seizure activity. 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 At this moment neurologically she is stable. 8. Continue recommendations of blood pressure medication as per hospitalist. 9. Waiting for placement 03/31/2022 Continue plan of care no change indicated I spent minutes with the patient and/or on the patient floor today, greater than?50% of which was spent counseling/coordinating care. Reason for contiued inpatient stay Substantial Risk for: inability to function and rapid decompensation
[2022-04-01] MEDS: Levothyroxine Sodium 50 MCG TABLET PO (05:34)
[2022-04-01 07:30] VITALS: BP 144/75; PULSE 63; RESP 16; TEMP 36.4; O2SAT 98
[2022-04-01] MEDS: hydroCHLOROthiazide 25 MG TABLET PO (09:59)
[2022-04-01] MEDS: Sertraline HCL 50 MG TABLET PO (09:59)
[2022-04-01] MEDS: carvediloL 12.5 MG TABLET PO ×2 (09:59→21:56)
[2022-04-01] MEDS: Atorvastatin Calcium 80 MG TABLET PO (09:59)
[2022-04-01] MEDS: amLODIPine Besylate 10 MG TABLET PO (09:59)
[2022-04-01] MEDS: Divalproex Sodium 250 MG TABLET.DR PO (09:59)
[2022-04-01] MEDS: Acetaminophen 325 MG TABLET 650 MG PO ×2 (14:12→19:01)
[2022-04-01] MEDS: Nystatin Powder 15 GM BOTTLE 1 APPL TOPICAL (16:41)
--- NOTE | 2022-04-01 18:57 | PC.NURSE ---
This public relations writer texted Dr. Hsieh via tiger text to ask permission to give Tylenol early, or for him to write new order for Ibuprofen. Pt. isn't due for another dose of Tylenol until [address] based on her last dose. Dr. Hsieh gave this public relations writer permission to give the next dose a little early.
[2022-04-01 20:41] VITALS: BP 155/75; PULSE 54; RESP 16; TEMP 36.2; O2SAT 97
[2022-04-01] MEDS: Donepezil HCl 10 MG TABLET PO (21:56)
[2022-04-01] MEDS: Melatonin 3 MG TABLET 6 MG PO (21:56)
[2022-04-01] MEDS: QUEtiapine Fumarate 50 MG TABLET PO (21:56)
[2022-04-01] MEDS: Divalproex Sodium 500 MG TABLET.DR PO (21:56)
--- NOTE | 2022-04-01 22:02 | P.PNPSI_ITS ---
Subjective Subjective Date of Service: 04/01/22 Reason For Visit: depression, anxiety, alzheimers Interim History: Patient social cooperative case reviewed with nursing staff Mental Status Exam Mental Status Exam Patient Appearance: Well Grooomed Patient Orientation: Person, Place and Situation Level of Consciousness: Awake and Appropriate Patient Behavior: Cooperative and Passive Mood Description: Calm Affect Description: Constricted Patient Cognition Impaired: Yes Ability to Follow Directions: Good Speech Pattern: Clear Hallucinations: None Delusions: Not Present Thought Process: Distracted and Linear Thought Content: positive for [place] and positive for Circumstantial Judgement: Fair Diagnostics Vital Signs (24Hr): Vital Signs - 24 hr 04/01/22 07:30 04/01/22 20:41 Temperature 97.6 F 97.2 F Pulse Rate 63 54 Respiratory Rate 16 16 Blood Pressure 144/75 H 155/75 H Pulse Oximetry 98 97 Oxygen Delivery Method Room Air Room Air BMI result Body Mass Index 29.1 Labs Results: 02/28/22 07:59 03/05/22 07:44 Imaging Radiology Impressions: ITS Impressions Head CT 02/06/22 15:04 IMPRESSION: No acute intracranial hemorrhage or territorial infarction. Progressed moderate generalized parenchymal volume loss and mild to moderate chronic white matter microangiopathy. 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 Head CT 02/26/22 10:52 IMPRESSION: No acute intracranial hemorrhage or territorial infarction. Stable diffuse parenchymal volume loss and llie-hx-zutgtrus chronic white matter microangiopathy. Incompletely visualized moderate left maxillary sinus disease with chronic sclerotic wall thickening. 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 No evidence of acute territorial infarct. No intracranial mass effect or hydrocephalus. Medications Medications Current Medications Acetaminophen (Acetaminophen 325 Mg Tablet) 650 mg PO Q6H PRN PRN Reason: Headache/Pain Mild Scale (1-3) Last Admin: 04/01/22 19:01 Dose: 650 mg Al Hydroxide/Mg Hydroxide (Magnesium Hydrox/Alum Hydrox 30 Ml Oral.Susp) 30 ml PO Q6H PRN PRN Reason: Heartburn/Nausea Amlodipine Besylate (Amlodipine Besylate 10 Mg Tablet) 10 mg PO DAILY [facility]; Protocol Last Admin: 04/01/22 09:59 Dose: 10 mg Artificial Tears (Artificial Tears 15 Ml Drops) 1 drop EYE-BOTH Q4H PRN PRN Reason: dry eyes Last Admin: 03/12/22 21:03 Dose: 1 drop Atorvastatin Calcium (Atorvastatin Calcium 80 Mg Tablet) 80 mg PO DAILY [facility] Last Admin: 04/01/22 09:59 Dose: 80 mg Bacitracin (Bacitracin Oint 14 Gm Tube) 1 appl TOPICAL BID [facility]; Protocol Last Admin: 04/01/22 21:02 Dose: Not Given Carvedilol (Carvedilol 12.5 Mg Tablet) 12.5 mg PO BID [facility]; Protocol Last Admin: 04/01/22 21:56 Dose: 12.5 mg Divalproex Sodium (Divalproex Sodium 250 Mg Tablet.) 250 mg PO DAILY [facility] Last Admin: 04/01/22 09:59 Dose: 250 mg Divalproex Sodium (Divalproex Sodium 500 Mg Tablet.) 500 mg PO BEDTIME [facility] Last Admin: 04/01/22 21:56 Dose: 500 mg Donepezil HCl (Donepezil Hcl 10 Mg Tablet) 10 mg PO BEDTIME [facility] Last Admin: 04/01/22 21:56 Dose: 10 mg Guaifenesin/Dextromethorphan (Guaifenesin Dm 100/10/5 Ml 5 Ml Syrup) 10 ml PO Q4H PRN PRN Reason: cough Hydrochlorothiazide (Hydrochlorothiazide 25 Mg Tablet) 25 mg PO DAILY [facility]; Protocol Last Admin: 04/01/22 09:59 Dose: 25 mg Hydroxyzine HCl (Hydroxyzine Hcl 25 Mg Tablet) 25 mg PO Q6H PRN PRN Reason: Anxiety Last Admin: 03/27/22 20:27 Dose: 25 mg Levothyroxine Sodium (Levothyroxine Sodium 50 Mcg Tablet) 50 mcg PO DAILY@0600 [facility] Last Admin: 04/01/22 05:34 Dose: 50 mcg Magnesium Hydroxide (Milk Of Magnesia 30 Ml Oral.Susp) 30 ml PO DAILY PRN PRN Reason: Constipation Melatonin (Melatonin 3 Mg Tablet) 6 mg PO BEDTIME [facility] Last Admin: 04/01/22 21:56 Dose: 6 mg Melatonin (Melatonin 3 Mg Tablet) 3 mg PO BEDTIME PRN PRN Reason: insomnia Last Admin: 03/29/22 20:21 Dose: 3 mg Nystatin (Nystatin Powder 15 Gm Bottle) 1 appl TOPICAL BID [facility]; Protocol Last Admin: 04/01/22 21:02 Dose: Not Given Polyethylene Glycol (Polyethylene Glycol 3350 17 Gm Powd.Pack) 17 gm PO DAILY PRN PRN Reason: constipation Quetiapine Fumarate (Quetiapine Fumarate 50 Mg Tablet) 50 mg PO BEDTIME [facility] Last Admin: 04/01/22 21:56 Dose: 50 mg Senna/Docusate Sodium (Sennosides/Docusate Sodium Tablet) 1 tab PO DAILY PRN PRN Reason: constipation Sertraline HCl (Sertraline Hcl 50 Mg Tablet) 50 mg PO DAILY [facility] Last Admin: 04/01/22 09:59 Dose: 50 mg Trazodone HCl (Trazodone Hcl 50 Mg Tablet) 50 mg PO BEDTIME PRN PRN Reason: Insomnia Last Admin: 03/08/22 20:26 Dose: 50 mg Allergies Allergies Allergy/AdvReac Type Severity Reaction Status Date / Time No Known Allergies Allergy Verified 02/05/22 21:09 Assessment & Plan Assessment & Plan (1) Dementia: Status: Acute Code(s): F03.90 - Unspecified dementia, unspecified severity, without behavioral disturbance, psychotic disturbance, mood disturbance, and anxiety Assessment and Plan: . (2) Bipolar disorder: Status: Acute Code(s): F31.9 - Bipolar disorder, unspecified Plan the patient is an elderly female with a past history of bipolar disor montse, dementia Alzheimer's type for the last 6 months, admitted for recent exacerbation of psychosis and violent behavior.? Very poor historian unable to provide more information.? PLAN: 1. PT consult ordered 2.. Gather collateral information.? 3. Continue with regular medications.? 4. Discharge to assisted living facility Or prison facility when ready 5. Increased Aricept to 10 mg p.o. q.h.s. on 02/15 6. Monitor BP 7. MRI and EEG ordered. We will follow the EEG results under was no seizure activity. 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 At this moment neurologically she is stable. 8. Continue recommendations of blood pressure medication as per hospitalist. 9. Waiting for placement 03/31/2022 Continue plan of care no change indicated 04/01/2022 Continue plan of care discharge planning I spent minutes with the patient and/or on the patient floor today, greater than?50% of which was spent counseling/coordinating care. Reason for contiued inpatient stay Substantial Risk for: inability to function and rapid decompensation
--- NOTE | 2022-04-02 05:28 | PC.NURSE ---
at 0525, mha and rn went in to change pt. pt refused to change. pt stated, i want to stay in bed, im warm. im not changing right now .
[2022-04-02] MEDS: Levothyroxine Sodium 50 MCG TABLET PO (06:48)
[2022-04-02] MEDS: Divalproex Sodium 250 MG TABLET.DR PO (08:40)
[2022-04-02] MEDS: hydroCHLOROthiazide 25 MG TABLET PO (08:41)
[2022-04-02] MEDS: Atorvastatin Calcium 80 MG TABLET PO (08:41)
[2022-04-02] MEDS: amLODIPine Besylate 10 MG TABLET PO (08:41)
[2022-04-02] MEDS: Sertraline HCL 50 MG TABLET PO (08:41)
[2022-04-02 08:43] VITALS: BP 124/66; PULSE 53; RESP 16; TEMP 36.3; O2SAT 98
--- NOTE | 2022-04-02 13:49 | HO.PSYCHPN ---
Subjective Subjective Date of Service: 04/02/22 Reason For Visit: depression, anxiety, alzheimers Subjective Notes: Conditional Voluntary Interim History: The nursing staff reported the patient had been intrusive times but easily redirectable. Her behavior is at baseline. On interview the patient denies new symptoms she is waiting for placement. Mental Status Exam Mental Status Exam Patient Appearance: Appropriate Patient Orientation: Person and Situation Level of Consciousness: Awake Patient Behavior: Talkative and Passive Mood Description: Withdrawn Affect Description: Labile Patient Cognition Impaired: Yes Ability to Follow Directions: Good Speech Pattern: Clear Hallucinations: None Delusions: Not Present Thought Process: Distracted Thought Content: positive for [place] Judgement: Fair Diagnostics Vital Signs (24Hr): Vital Signs - 24 hr 04/01/22 20:41 04/02/22 08:43 Temperature 97.2 F 97.4 F Pulse Rate 54 53 Respiratory Rate 16 16 Blood Pressure 155/75 H 124/66 Pulse Oximetry 97 98 Oxygen Delivery Method Room Air Room Air BMI result Body Mass Index 29.1 Labs Results: 02/28/22 07:59 03/05/22 07:44 Imaging Radiology Impressions: ITS Impressions Head CT 02/06/22 15:04 IMPRESSION: No acute intracranial hemorrhage or territorial infarction. Progressed moderate generalized parenchymal volume loss and mild to moderate chronic white matter microangiopathy. 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 Head CT 02/26/22 10:52 IMPRESSION: No acute intracranial hemorrhage or territorial infarction. Stable diffuse parenchymal volume loss and obrb-vr-[place] chronic white matter microangiopathy. Incompletely visualized moderate left maxillary sinus disease with chronic sclerotic wall thickening. 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 No evidence of acute territorial infarct. No intracranial mass effect or hydrocephalus. Medications Medications Current Medications Acetaminophen (Acetaminophen 325 Mg Tablet) 650 mg PO Q6H PRN PRN Reason: Headache/Pain Mild Scale (1-3) Last Admin: 04/01/22 19:01 Dose: 650 mg Al Hydroxide/Mg Hydroxide (Magnesium Hydrox/Alum Hydrox 30 Ml Oral.Susp) 30 ml PO Q6H PRN PRN Reason: Heartburn/Nausea Amlodipine Besylate (Amlodipine Besylate 10 Mg Tablet) 10 mg PO DAILY [facility]; Protocol Last Admin: 04/02/22 08:41 Dose: 10 mg Artificial Tears (Artificial Tears 15 Ml Drops) 1 drop EYE-BOTH Q4H PRN PRN Reason: dry eyes Last Admin: 03/12/22 21:03 Dose: 1 drop Atorvastatin Calcium (Atorvastatin Calcium 80 Mg Tablet) 80 mg PO DAILY [facility] Last Admin: 04/02/22 08:41 Dose: 80 mg Bacitracin (Bacitracin Oint 14 Gm Tube) 1 appl TOPICAL BID [facility]; Protocol Last Admin: 04/02/22 09:12 Dose: Not Given Carvedilol (Carvedilol 12.5 Mg Tablet) 12.5 mg PO BID [facility]; Protocol Last Admin: 04/02/22 08:41 Dose: Not Given Divalproex Sodium (Divalproex Sodium 250 Mg Tablet.Dr) 250 mg PO DAILY [facility] Last Admin: 04/02/22 08:40 Dose: 250 mg Divalproex Sodium (Divalproex Sodium 500 Mg Tablet.Dr) 500 mg PO BEDTIME [facility] Last Admin: 04/01/22 21:56 Dose: 500 mg Donepezil HCl (Donepezil Hcl 10 Mg Tablet) 10 mg PO BEDTIME [facility] Last Admin: 04/01/22 21:56 Dose: 10 mg Guaifenesin/Dextromethorphan (Guaifenesin Dm 100/10/5 Ml 5 Ml Syrup) 10 ml PO Q4H PRN PRN Reason: cough Hydrochlorothiazide (Hydrochlorothiazide 25 Mg Tablet) 25 mg PO DAILY [facility]; Protocol Last Admin: 04/02/22 08:41 Dose: 25 mg Hydroxyzine HCl (Hydroxyzine Hcl 25 Mg Tablet) 25 mg PO Q6H PRN PRN Reason: Anxiety Last Admin: 03/27/22 20:27 Dose: 25 mg Levothyroxine Sodium (Levothyroxine Sodium 50 Mcg Tablet) 50 mcg PO DAILY@0600 [facility] Last Admin: 04/02/22 06:48 Dose: 50 mcg Magnesium Hydroxide (Milk Of Magnesia 30 Ml Oral.Susp) 30 ml PO DAILY PRN PRN Reason: Constipation Melatonin (Melatonin 3 Mg Tablet) 6 mg PO BEDTIME [facility] Last Admin: 04/01/22 21:56 Dose: 6 mg Melatonin (Melatonin 3 Mg Tablet) 3 mg PO BEDTIME PRN PRN Reason: insomnia Last Admin: 03/29/22 20:21 Dose: 3 mg Nystatin (Nystatin Powder 15 Gm Bottle) 1 appl TOPICAL BID [facility]; Protocol Last Admin: 04/02/22 09:12 Dose: Not Given Polyethylene Glycol (Polyethylene Glycol 3350 17 Gm Powd.Pack) 17 gm PO DAILY PRN PRN Reason: constipation Quetiapine Fumarate (Quetiapine Fumarate 50 Mg Tablet) 50 mg PO BEDTIME [facility] Last Admin: 04/01/22 21:56 Dose: 50 mg Senna/Docusate Sodium (Sennosides/Docusate Sodium Tablet) 1 tab PO DAILY PRN PRN Reason: constipation Sertraline HCl (Sertraline Hcl 50 Mg Tablet) 50 mg PO DAILY [facility] Last Admin: 04/02/22 08:41 Dose: 50 mg Trazodone HCl (Trazodone Hcl 50 Mg Tablet) 50 mg PO BEDTIME PRN PRN Reason: Insomnia Last Admin: 03/08/22 20:26 Dose: 50 mg Allergies Allergies Allergy/AdvReac Type Severity Reaction Status Date / Time No Known Allergies Allergy Verified 02/05/22 21:09 Assessment & Plan Assessment & Plan (1) Dementia: Status: Acute Code(s): F03.90 - Unspecified dementia, unspecified severity, without behavioral disturbance, psychotic disturbance, mood disturbance, and anxiety Assessment and Plan: . (2) Bipolar disorder: Status: Acute Code(s): F31.9 - Bipolar disorder, unspecified Plan the patient is an elderly female with a past history of bipolar disorder, dementia Alzheimer's type for the last 6 months, admitted for recent exacerbation of psychosis and violent behavior.? Very poor historian unable to provide more information.? PLAN: 1. PT consult ordered 2.. Gather collateral information.? 3. Continue with regular medications.? 4. Discharge to assisted living facility Or [facility] facility when ready 5. Increased Aricept to 10 mg p.o. q.h.s. on 02/15 6. Monitor BP 7. MRI and EEG ordered. We will follow the EEG results under was no seizure activity. 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 At this moment neurologically she is stable. 8. Continue recommendations of blood pressure medication as per hospitalist. 9. Waiting for placement. I spent ___20___ minutes with the patient and/or on the patient floor today, greater than?50% of which was spent counseling/coordinating care. Reason for contiued inpatient stay Substantial Risk for: inability to function, rapid decompensation and med/psych decompensation Time Spent With Patient Time: Total time managing care of this patient today _20___ minutes.
[2022-04-02] MEDS: Acetaminophen 325 MG TABLET 650 MG PO (16:37)
[2022-04-02 18:00] VITALS: BP 165/77; PULSE 63; RESP 17; TEMP 36.6; O2SAT 96
[2022-04-02] MEDS: Donepezil HCl 10 MG TABLET PO (20:06)
[2022-04-02] MEDS: carvediloL 12.5 MG TABLET PO (20:06)
[2022-04-02] MEDS: Melatonin 3 MG TABLET 6 MG PO (20:06)
[2022-04-02] MEDS: Divalproex Sodium 500 MG TABLET.DR PO (20:06)
[2022-04-02] MEDS: QUEtiapine Fumarate 50 MG TABLET PO (20:06)
[2022-04-02] MEDS: Bacitracin Oint 14 GM TUBE 1 APPL TOPICAL (20:08)
[2022-04-03] MEDS: Levothyroxine Sodium 50 MCG TABLET PO (06:03)
[2022-04-03] MEDS: Acetaminophen 325 MG TABLET 650 MG PO ×2 (06:13→20:20)
[2022-04-03 08:28] VITALS: BP 120/68; PULSE 68; RESP 18; TEMP 36.6; O2SAT 97
[2022-04-03] MEDS: hydroCHLOROthiazide 25 MG TABLET PO (08:29)
[2022-04-03] MEDS: Divalproex Sodium 250 MG TABLET.DR PO (08:29)
[2022-04-03] MEDS: amLODIPine Besylate 10 MG TABLET PO (08:30)
[2022-04-03] MEDS: carvediloL 12.5 MG TABLET PO ×2 (08:31→20:17)
[2022-04-03] MEDS: Sertraline HCL 50 MG TABLET PO (08:31)
[2022-04-03] MEDS: Atorvastatin Calcium 80 MG TABLET PO (09:03)
--- NOTE | 2022-04-03 11:50 | HO.PSYCHPN ---
Subjective Subjective Date of Service: 04/03/22 Reason For Visit: depression, anxiety, alzheimers Subjective Notes: Conditional Voluntary Interim History: The nursing staff reported the patient had been fully compliant with treatment, demanding at times and intrusive with her peers but easily redirectable. She slept all night long without any concerns. On interview the patient denies new symptoms, she is waiting for placement. Mental Status Exam Mental Status Exam Patient Appearance: Well Grooomed and Appropriate Patient Orientation: Person and Situation Level of Consciousness: Awake and Appropriate Patient Behavior: Guarded and Passive Mood Description: Constricted Affect Description: Calm Patient Cognition Impaired: Yes Ability to Follow Directions: Good Speech Pattern: Clear Hallucinations: None Delusions: Not Present Thought Process: Distracted Thought Content: positive for [place] and positive for Circumstantial Judgement: Fair Diagnostics Vital Signs (24Hr): Vital Signs - 24 hr 04/02/22 18:00 04/03/22 08:28 Temperature 97.9 F 97.8 F Pulse Rate 63 68 Respiratory Rate 17 18 Blood Pressure 165/77 H 120/68 Pulse Oximetry 96 97 Oxygen Delivery Method Room Air Room Air BMI result Body Mass Index 29.1 Labs Results: 02/28/22 07:59 03/05/22 07:44 Imaging Radiology Impressions: ITS Impressions Head CT 02/06/22 15:04 IMPRESSION: No acute intracranial hemorrhage or territorial infarction. Progressed moderate generalized parenchymal volume loss and mild to moderate chronic white matter microangiopathy. 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 Head CT 02/26/22 10:52 IMPRESSION: No acute intracranial hemorrhage or territorial infarction. Stable diffuse parenchymal volume loss and feiu-ik-ktyjeplb chronic white matter microangiopathy. Incompletely visualized moderate left maxillary sinus disease with chronic sclerotic wall thickening. 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 No evidence of acute territorial infarct. No intracranial mass effect or hydrocephalus. Medications Medications Current Medications Acetaminophen (Acetaminophen 325 Mg Tablet) 650 mg PO Q6H PRN PRN Reason: Headache/Pain Mild Scale (1-3) Last Admin: 04/03/22 06:13 Dose: 650 mg Al Hydroxide/Mg Hydroxide (Magnesium Hydrox/Alum Hydrox 30 Ml Oral.Susp) 30 ml PO Q6H PRN PRN Reason: Heartburn/Nausea Amlodipine Besylate (Amlodipine Besylate 10 Mg Tablet) 10 mg PO DAILY [facility]; Protocol Last Admin: 04/03/22 08:30 Dose: 10 mg Artificial Tears (Artificial Tears 15 Ml Drops) 1 drop EYE-BOTH Q4H PRN PRN Reason: dry eyes Last Admin: 03/12/22 21:03 Dose: 1 drop Atorvastatin Calcium (Atorvastatin Calcium 80 Mg Tablet) 80 mg PO DAILY [facility] Last Admin: 04/03/22 09:03 Dose: 80 mg Bacitracin (Bacitracin Oint 14 Gm Tube) 1 appl TOPICAL BID [facility]; Protocol Last Admin: 04/03/22 08:31 Dose: Not Given Carvedilol (Carvedilol 12.5 Mg Tablet) 12.5 mg PO BID [facility]; Protocol Last Admin: 04/03/22 08:31 Dose: 12.5 mg Divalproex Sodium (Divalproex Sodium 250 Mg Tablet.) 250 mg PO DAILY [facility] Last Admin: 04/03/22 08:29 Dose: 250 mg Divalproex Sodium (Divalproex Sodium 500 Mg Tablet.) 500 mg PO BEDTIME [facility] Last Admin: 04/02/22 20:06 Dose: 500 mg Donepezil HCl (Donepezil Hcl 10 Mg Tablet) 10 mg PO BEDTIME [facility] Last Admin: 04/02/22 20:06 Dose: 10 mg Guaifenesin/Dextromethorphan (Guaifenesin Dm 100/10/5 Ml 5 Ml Syrup) 10 ml PO Q4H PRN PRN Reason: cough Hydrochlorothiazide (Hydrochlorothiazide 25 Mg Tablet) 25 mg PO DAILY [facility]; Protocol Last Admin: 04/03/22 08:29 Dose: 25 mg Hydroxyzine HCl (Hydroxyzine Hcl 25 Mg Tablet) 25 mg PO Q6H PRN PRN Reason: Anxiety Last Admin: 03/27/22 20:27 Dose: 25 mg Levothyroxine Sodium (Levothyroxine Sodium 50 Mcg Tablet) 50 mcg PO DAILY@0600 [facility] Last Admin: 04/03/22 06:03 Dose: 50 mcg Magnesium Hydroxide (Milk Of Magnesia 30 Ml Oral.Susp) 30 ml PO DAILY PRN PRN Reason: Constipation Melatonin (Melatonin 3 Mg Tablet) 6 mg PO BEDTIME [facility] Last Admin: 04/02/22 20:06 Dose: 6 mg Melatonin (Melatonin 3 Mg Tablet) 3 mg PO BEDTIME PRN PRN Reason: insomnia Last Admin: 03/29/22 20:21 Dose: 3 mg Nystatin (Nystatin Powder 15 Gm Bottle) 1 appl TOPICAL BID [facility]; Protocol Last Admin: 04/03/22 08:31 Dose: Not Given Polyethylene Glycol (Polyethylene Glycol 3350 17 Gm Powd.Pack) 17 gm PO DAILY PRN PRN Reason: constipation Quetiapine Fumarate (Quetiapine Fumarate 50 Mg Tablet) 50 mg PO BEDTIME [facility] Last Admin: 04/02/22 20:06 Dose: 50 mg Senna/Docusate Sodium (Sennosides/Docusate Sodium Tablet) 1 tab PO DAILY PRN PRN Reason: constipation Sertraline HCl (Sertraline Hcl 50 Mg Tablet) 50 mg PO DAILY [facility] Last Admin: 04/03/22 08:31 Dose: 50 mg Trazodone HCl (Trazodone Hcl 50 Mg Tablet) 50 mg PO BEDTIME PRN PRN Reason: Insomnia Last Admin: 03/08/22 20:26 Dose: 50 mg Allergies Allergies Allergy/AdvReac Type Severity Reaction Status Date / Time No Known Allergies Allergy Verified 02/05/22 21:09 Assessment & Plan Assessment & Plan (1) Dementia: Status: Acute Code(s): F03.90 - Unspecified dementia, unspecified severity, without behavioral disturbance, psychotic disturbance, mood disturbance, and anxiety Assessment and Plan: . (2) Bipolar disorder: Status: Acute Code(s): F31.9 - Bipolar disorder, unspecified Plan the patient is an elderly female with a past history of bipolar disorder, dementia Alzheimer's type for the last 6 months, admitted for recent exacerbation of psychosis and violent behavior.? Very poor historian unable to provide more information.? PLAN: 1. PT consult ordered 2.. Gather collateral information.? 3. Continue with regular medications.? 4. Discharge to assisted living facility Or group home facility when ready 5. Increased Aricept to 10 mg p.o. q.h.s. on 02/15 6. Monitor BP 7. MRI and EEG ordered. We will follow the EEG results under was no seizure activity. 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 At this moment neurologically she is stable. 8. Continue recommendations of blood pressure medication as per hospitalist. 9. Waiting for placement. I spent __20____ minutes with the patient and/or on the patient floor today, greater than?50% of which was spent counseling/coordinating care. Reason for contiued inpatient stay Substantial Risk for: inability to function, rapid decompensation and med/psych decompensation Time Spent With Patient Time: Total time managing care of this patient today _20___ minutes.
[2022-04-03 18:00] VITALS: BP 146/72; PULSE 60; RESP 20; TEMP 36.8; O2SAT 99
[2022-04-03] MEDS: Bacitracin Oint 14 GM TUBE 1 APPL TOPICAL (20:17)
[2022-04-03] MEDS: Melatonin 3 MG TABLET 6 MG PO (20:19)
[2022-04-03] MEDS: Nystatin Powder 15 GM BOTTLE 1 APPL TOPICAL (20:19)
[2022-04-03] MEDS: Divalproex Sodium 500 MG TABLET.DR PO (20:19)
[2022-04-03] MEDS: Donepezil HCl 10 MG TABLET PO (20:19)
[2022-04-03] MEDS: QUEtiapine Fumarate 50 MG TABLET PO (20:20)
[2022-04-04] MEDS: Levothyroxine Sodium 50 MCG TABLET PO (05:34)
[2022-04-04 06:00] VITALS: BP 156/76; PULSE 61; RESP 16; TEMP 36.4; O2SAT 97
[2022-04-04] MEDS: Atorvastatin Calcium 80 MG TABLET PO (08:08)
[2022-04-04] MEDS: hydroCHLOROthiazide 25 MG TABLET PO (08:08)
[2022-04-04] MEDS: amLODIPine Besylate 10 MG TABLET PO (08:08)
[2022-04-04] MEDS: carvediloL 12.5 MG TABLET PO ×2 (08:08→20:11)
[2022-04-04] MEDS: Divalproex Sodium 250 MG TABLET.DR PO (08:08)
[2022-04-04] MEDS: Sertraline HCL 50 MG TABLET PO (08:09)
--- NOTE | 2022-04-04 10:54 | HO.PSYCHPN ---
Subjective Subjective Date of Service: 04/04/22 Reason For Visit: depression, anxiety, alzheimers Subjective Notes: Conditional Voluntary Interim History: The nursing staff reported the patient slept well, she had being pleasant and cooperative. She had been complaining of headaches that resolved with Tylenol. On interview the patient denies new symptoms she is pleasant cooperative attending to groups, waiting for placement. Mental Status Exam Mental Status Exam Patient Appearance: Well Grooomed Patient Orientation: Person and Situation Level of Consciousness: Awake and Appropriate Patient Behavior: Passive Mood Description: Withdrawn Affect Description: Constricted Patient Cognition Impaired: Yes Ability to Follow Directions: Good Speech Pattern: Clear Hallucinations: None Delusions: Not Present Thought Process: Distracted Thought Content: positive for Confluence, positive for Circumstantial and positive for Poverty of Content Judgement: Fair Diagnostics Vital Signs (24Hr): Vital Signs - 24 hr 04/03/22 18:00 04/04/22 06:00 Temperature 98.2 F 97.6 F Pulse Rate 60 61 Respiratory Rate 20 16 Blood Pressure 146/72 H 156/76 H Pulse Oximetry 99 97 Oxygen Delivery Method Room Air Room Air BMI result Body Mass Index 29.1 Labs Results: 02/28/22 07:59 03/05/22 07:44 Imaging Radiology Impressions: ITS Impressions Head CT 02/06/22 15:04 IMPRESSION: No acute intracranial hemorrhage or territorial infarction. Progressed moderate generalized parenchymal volume loss and mild to moderate chronic white matter microangiopathy. 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 Head CT 02/26/22 10:52 IMPRESSION: No acute intracranial hemorrhage or territorial infarction. Stable diffuse parenchymal volume loss and [id number] chronic white matter microangiopathy. Incompletely visualized moderate left maxillary sinus disease with chronic sclerotic wall thickening. 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 No evidence of acute territorial infarct. No intracranial mass effect or hydrocephalus. Medications Medications Current Medications Acetaminophen (Acetaminophen 325 Mg Tablet) 650 mg PO Q6H PRN PRN Reason: Headache/Pain Mild Scale (1-3) Last Admin: 04/03/22 20:20 Dose: 650 mg Al Hydroxide/Mg Hydroxide (Magnesium Hydrox/Alum Hydrox 30 Ml Oral.Susp) 30 ml PO Q6H PRN PRN Reason: Heartburn/Nausea Amlodipine Besylate (Amlodipine Besylate 10 Mg Tablet) 10 mg PO DAILY [facility]; Protocol Last Admin: 04/04/22 08:08 Dose: 10 mg Artificial Tears (Artificial Tears 15 Ml Drops) 1 drop EYE-BOTH Q4H PRN PRN Reason: dry eyes Last Admin: 03/12/22 21:03 Dose: 1 drop Atorvastatin Calcium (Atorvastatin Calcium 80 Mg Tablet) 80 mg PO DAILY [facility] Last Admin: 04/04/22 08:08 Dose: 80 mg Bacitracin (Bacitracin Oint 14 Gm Tube) 1 appl TOPICAL BID [facility]; Protocol Last Admin: 04/04/22 10:53 Dose: Not Given Carvedilol (Carvedilol 12.5 Mg Tablet) 12.5 mg PO BID [facility]; Protocol Last Admin: 04/04/22 08:08 Dose: 12.5 mg Divalproex Sodium (Divalproex Sodium 250 Mg Tablet.) 250 mg PO DAILY [facility] Last Admin: 04/04/22 08:08 Dose: 250 mg Divalproex Sodium (Divalproex Sodium 500 Mg Tablet.) 500 mg PO BEDTIME [facility] Last Admin: 04/03/22 20:19 Dose: 500 mg Donepezil HCl (Donepezil Hcl 10 Mg Tablet) 10 mg PO BEDTIME [facility] Last Admin: 04/03/22 20:19 Dose: 10 mg Guaifenesin/Dextromethorphan (Guaifenesin Dm 100/10/5 Ml 5 Ml Syrup) 10 ml PO Q4H PRN PRN Reason: cough Hydrochlorothiazide (Hydrochlorothiazide 25 Mg Tablet) 25 mg PO DAILY [facility]; Protocol Last Admin: 04/04/22 08:08 Dose: 25 mg Hydroxyzine HCl (Hydroxyzine Hcl 25 Mg Tablet) 25 mg PO Q6H PRN PRN Reason: Anxiety Last Admin: 03/27/22 20:27 Dose: 25 mg Levothyroxine Sodium (Levothyroxine Sodium 50 Mcg Tablet) 50 mcg PO DAILY@0600 [facility] Last Admin: 04/04/22 05:34 Dose: 50 mcg Magnesium Hydroxide (Milk Of Magnesia 30 Ml Oral.Susp) 30 ml PO DAILY PRN PRN Reason: Constipation Melatonin (Melatonin 3 Mg Tablet) 6 mg PO BEDTIME [facility] Last Admin: 04/03/22 20:19 Dose: 6 mg Melatonin (Melatonin 3 Mg Tablet) 3 mg PO BEDTIME PRN PRN Reason: insomnia Last Admin: 03/29/22 20:21 Dose: 3 mg Nystatin (Nystatin Powder 15 Gm Bottle) 1 appl TOPICAL BID [facility]; Protocol Last Admin: 04/04/22 10:53 Dose: Not Given Polyethylene Glycol (Polyethylene Glycol 3350 17 Gm Powd.Pack) 17 gm PO DAILY PRN PRN Reason: constipation Quetiapine Fumarate (Quetiapine Fumarate 50 Mg Tablet) 50 mg PO BEDTIME [facility] Last Admin: 04/03/22 20:20 Dose: 50 mg Senna/Docusate Sodium (Sennosides/Docusate Sodium Tablet) 1 tab PO DAILY PRN PRN Reason: constipation Sertraline HCl (Sertraline Hcl 50 Mg Tablet) 50 mg PO DAILY [facility] Last Admin: 04/04/22 08:09 Dose: 50 mg Trazodone HCl (Trazodone Hcl 50 Mg Tablet) 50 mg PO BEDTIME PRN PRN Reason: Insomnia Last Admin: 03/08/22 20:26 Dose: 50 mg Allergies Allergies Allergy/AdvReac Type Severity Reaction Status Date / Time No Known Allergies Allergy Verified 02/05/22 21:09 Assessment & Plan Assessment & Plan (1) Dementia: Status: Acute Code(s): F03.90 - Unspecified dementia, unspecified severity, without behavioral disturbance, psychotic disturbance, mood disturbance, and anxiety Assessment and Plan: . (2) Bipolar disorder: Status: Acute Code(s): F31.9 - Bipolar disorder, unspecified Plan the patient is an elderly female with a past history of bipolar disorder, dementia Alzheimer's type for the last 6 months, admitted for recent exacerbation of psychosis and violent behavior.? Very poor historian unable to provide more information.? PLAN: 1. PT consult ordered 2.. Gather collateral information.? 3. Continue with regular medications.? 4. Discharge to assisted living facility Or longterm facility when ready 5. Increased Aricept to 10 mg p.o. q.h.s. on 02/15 6. Monitor BP 7. MRI and EEG ordered. We will follow the EEG results under was no seizure activity. 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 At this moment neurologically she is stable. 8. Continue recommendations of blood pressure medication as per hospitalist. 9. Waiting for placement. I spent ___20___ minutes with the patient and/or on the patient floor today, greater than?50% of which was spent counseling/coordinating care. Reason for contiued inpatient stay Substantial Risk for: rapid decompensation and med/psych decompensation Time Spent With Patient Time: Total time managing care of this patient today _20___ minutes.
[2022-04-04 18:00] VITALS: BP 140/75; PULSE 73; RESP 17; TEMP 36.6; O2SAT 97
[2022-04-04] MEDS: Bacitracin Oint 14 GM TUBE 1 APPL TOPICAL (20:11)
[2022-04-04] MEDS: Donepezil HCl 10 MG TABLET PO (20:12)
[2022-04-04] MEDS: Divalproex Sodium 500 MG TABLET.DR PO (20:12)
[2022-04-04] MEDS: Melatonin 3 MG TABLET 6 MG PO (20:12)
[2022-04-04] MEDS: Nystatin Powder 15 GM BOTTLE 1 APPL TOPICAL (20:13)
[2022-04-04] MEDS: QUEtiapine Fumarate 50 MG TABLET PO (20:13)
[2022-04-05] MEDS: Levothyroxine Sodium 50 MCG TABLET PO (05:42)
[2022-04-05 06:00] VITALS: BP 114/65; PULSE 59; RESP 16; TEMP 36.9; O2SAT 98
[2022-04-05 07:00] VITALS: BMI 29.1
--- NOTE | 2022-04-05 10:18 | HO.PSYCHPN ---
Subjective Subjective Date of Service: 04/05/22 Reason For Visit: depression, anxiety, alzheimers Subjective Notes: Conditional Voluntary Interim History: Pt has been visible on the unit, ambulating with walker. She denies any concerns in terms of depression or anxious mood. No physical complaints, other than mild headache which she requested tylenol. No SI/HI. No behavioral concerns. Medication Compliance: Yes Review of Systems Review of Systems General: No fevers, malaise, unintentional weight loss HEENT: No blurred vision or diplopia Cardiovascular: No chest pain, palpitations, or leg edema Respiratory: No shortness of breath, wheezing, cough GI: No abdominal pain, nausea, vomiting, diarrhea, constipation, melena, hematochezia : No dysuria, hematuria, increased urinary frequency, urgency MSK: No myalgia Neuro: No headaches, weakness, paresthesias Skin: No rashes or lesions Yes all other systems are reviewed and are negative and Unobtainable due to mental status Mental Status Exam Mental Status Exam Narrative: Patient Appearance: Well Grooomed and Appropriate Patient Orientation: Person and Situation Level of Consciousness: Awake and Appropriate Patient Behavior: Guarded and Cooperative Mood Description: Withdrawn Affect Description: Constricted Ability to Follow Directions: Good Speech Pattern: Clear Hallucinations: None Delusions: Not Present Thought Process: Distracted Thought Content: positive for Circumstantial Judgement: Fair Patient Appearance: Well Grooomed Patient Orientation: Person and Situation Level of Consciousness: Awake and Appropriate Patient Behavior: Passive Mood Description: Withdrawn Affect Description: Constricted Patient Cognition Impaired: Yes Ability to Follow Directions: Good Speech Pattern: Clear Memory Description: Intact Diagnostics Vital Signs (24Hr): Vital Signs - 24 hr 04/06/22 18:00 Temperature 96.5 F L Pulse Rate 95 Respiratory Rate 20 Blood Pressure 135/71 Pulse Oximetry 96 Oxygen Delivery Method Room Air BMI result Body Mass Index 29.1 Labs Results: 02/28/22 07:59 03/05/22 07:44 Imaging Radiology Impressions: ITS Impressions Head CT 02/06/22 15:04 IMPRESSION: No acute intracranial hemorrhage or territorial infarction. Progressed moderate generalized parenchymal volume loss and mild to moderate chronic white matter microangiopathy. 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 Head CT 02/26/22 10:52 IMPRESSION: No acute intracranial hemorrhage or territorial infarction. Stable diffuse parenchymal volume loss and [id number] chronic white matter microangiopathy. Incompletely visualized moderate left maxillary sinus disease with chronic sclerotic wall thickening. 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 No evidence of acute territorial infarct. No intracranial mass effect or hydrocephalus. Medications Medications Current Medications Acetaminophen (Acetaminophen 325 Mg Tablet) 650 mg PO Q6H PRN PRN Reason: Headache/Pain Mild Scale (1-3) Last Admin: 04/06/22 21:49 Dose: 650 mg Al Hydroxide/Mg Hydroxide (Magnesium Hydrox/Alum Hydrox 30 Ml Oral.Susp) 30 ml PO Q6H PRN PRN Reason: Heartburn/Nausea Amlodipine Besylate (Amlodipine Besylate 10 Mg Tablet) 10 mg PO DAILY [facility]; Protocol Last Admin: 04/06/22 10:49 Dose: 10 mg Artificial Tears (Artificial Tears 15 Ml Drops) 1 drop EYE-BOTH Q4H PRN PRN Reason: dry eyes Last Admin: 03/12/22 21:03 Dose: 1 drop Atorvastatin Calcium (Atorvastatin Calcium 80 Mg Tablet) 80 mg PO DAILY [facility] Last Admin: 04/06/22 10:49 Dose: 80 mg Bacitracin (Bacitracin Oint 14 Gm Tube) 1 appl TOPICAL BID [facility]; Protocol Last Admin: 04/06/22 22:14 Dose: 1 appl Carvedilol (Carvedilol 12.5 Mg Tablet) 12.5 mg PO BID [facility]; Protocol Last Admin: 04/06/22 21:47 Dose: 12.5 mg Divalproex Sodium (Divalproex Sodium 250 Mg Tablet.) 250 mg PO DAILY [facility] Last Admin: 04/06/22 10:49 Dose: 250 mg Divalproex Sodium (Divalproex Sodium 500 Mg Tablet.) 500 mg PO BEDTIME [facility] Last Admin: 04/06/22 21:49 Dose: 500 mg Donepezil HCl (Donepezil Hcl 10 Mg Tablet) 10 mg PO BEDTIME [facility] Last Admin: 04/06/22 21:47 Dose: 10 mg Guaifenesin/Dextromethorphan (Guaifenesin Dm 100/10/5 Ml 5 Ml Syrup) 10 ml PO Q4H PRN PRN Reason: cough Hydrochlorothiazide (Hydrochlorothiazide 25 Mg Tablet) 25 mg PO DAILY [facility]; Protocol Last Admin: 04/06/22 10:49 Dose: 25 mg Hydroxyzine HCl (Hydroxyzine Hcl 25 Mg Tablet) 25 mg PO Q6H PRN PRN Reason: Anxiety Last Admin: 03/27/22 20:27 Dose: 25 mg Levothyroxine Sodium (Levothyroxine Sodium 50 Mcg Tablet) 50 mcg PO DAILY@0600 [facility] Last Admin: 04/07/22 05:55 Dose: 50 mcg Magnesium Hydroxide (Milk Of Magnesia 30 Ml Oral.Susp) 30 ml PO DAILY PRN PRN Reason: Constipation Melatonin (Melatonin 3 Mg Tablet) 6 mg PO BEDTIME [facility] Last Admin: 04/06/22 21:00 Dose: 6 mg Melatonin (Melatonin 3 Mg Tablet) 3 mg PO BEDTIME PRN PRN Reason: insomnia Last Admin: 03/29/22 20:21 Dose: 3 mg Nystatin (Nystatin Powder 15 Gm Bottle) 1 appl TOPICAL BID [facility]; Protocol Last Admin: 04/06/22 22:14 Dose: 1 appl Polyethylene Glycol (Polyethylene Glycol 3350 17 Gm Powd.Pack) 17 gm PO DAILY PRN PRN Reason: constipation Quetiapine Fumarate (Quetiapine Fumarate 50 Mg Tablet) 50 mg PO BEDTIME [facility] Last Admin: 04/06/22 21:47 Dose: 50 mg Senna/Docusate Sodium (Sennosides/Docusate Sodium Tablet) 1 tab PO DAILY PRN PRN Reason: constipation Sertraline HCl (Sertraline Hcl 50 Mg Tablet) 50 mg PO DAILY [facility] Last Admin: 04/06/22 10:49 Dose: 50 mg Trazodone HCl (Trazodone Hcl 50 Mg Tablet) 50 mg PO BEDTIME PRN PRN Reason: Insomnia Last Admin: 03/08/22 20:26 Dose: 50 mg Allergies Allergies Allergy/AdvReac Type Severity Reaction Status Date / Time No Known Allergies Allergy Verified 02/05/22 21:09 Assessment & Plan Assessment & Plan (1) Dementia: Status: Acute Code(s): F03.90 - Unspecified dementia, unspecified severity, without behavioral disturbance, psychotic disturbance, mood disturbance, and anxiety Assessment and Plan: . (2) Bipolar disorder: Status: Acute Code(s): F31.9 - Bipolar disorder, unspecified Plan the patient is an elderly female with a past history of bipolar disorder, dementia Alzheimer's type for the last 6 months, admitted for recent exacerbation of psychosis and violent behavior.? Very poor historian unable to provide more information.? PLAN: 1. PT consult ordered 2.. Gather collateral information.? 3. Continue with regular medications.? 4. Discharge to assisted living facility Or senior living facility when ready 5. Increased Aricept to 10 mg p.o. q.h.s. on 02/15 6. Monitor BP 7. MRI and EEG ordered. We will follow the EEG results under was no seizure activity. 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 At this moment neurologically she is stable. 8. Continue recommendations of blood pressure medication as per hospitalist. 9. Waiting for placement. 04/05 continue tx. I spent minutes with the patient and/or on the patient floor today, greater than?50% of which was spent counseling/coordinating care. Reason for contiued inpatient stay Substantial Risk for: inability to function Time Spent With Patient Time: Total time managing care of this patient today ____ minutes.
[2022-04-05] MEDS: hydroCHLOROthiazide 25 MG TABLET PO (10:45)
[2022-04-05] MEDS: Atorvastatin Calcium 80 MG TABLET PO (10:45)
[2022-04-05] MEDS: amLODIPine Besylate 10 MG TABLET PO (10:46)
[2022-04-05] MEDS: Sertraline HCL 50 MG TABLET PO (10:46)
[2022-04-05] MEDS: carvediloL 12.5 MG TABLET PO ×2 (10:46→21:19)
[2022-04-05] MEDS: Divalproex Sodium 250 MG TABLET.DR PO (10:46)
[2022-04-05 18:00] VITALS: BP 135/69; PULSE 60; RESP 18; TEMP 36.8; O2SAT 97
[2022-04-05] MEDS: Bacitracin Oint 14 GM TUBE 1 APPL TOPICAL (21:18)
[2022-04-05] MEDS: Melatonin 3 MG TABLET 6 MG PO (21:21)
[2022-04-05] MEDS: Donepezil HCl 10 MG TABLET PO (21:21)
[2022-04-05] MEDS: Divalproex Sodium 500 MG TABLET.DR PO (21:21)
[2022-04-05] MEDS: Nystatin Powder 15 GM BOTTLE 1 APPL TOPICAL (21:21)
[2022-04-05] MEDS: QUEtiapine Fumarate 50 MG TABLET PO (21:21)
[2022-04-05] MEDS: Acetaminophen 325 MG TABLET 650 MG PO (21:22)
[2022-04-06 06:00] VITALS: BP 126/68; PULSE 61; RESP 16; TEMP 36.8; O2SAT 96
[2022-04-06] MEDS: Levothyroxine Sodium 50 MCG TABLET PO (06:35)
--- NOTE | 2022-04-06 10:10 | P.PNPSI_ITS ---
Subjective Subjective Date of Service: 04/06/22 Reason For Visit: depression, anxiety, alzheimers Subjective Notes: Conditional Voluntary Interim History: Pt continues to be more visible on the unit, ambulating with walker and attending some groups. She denies any concerns in terms of depression or anxious mood. No physical complaints, other than mild headache which she requested tylenol. No SI/HI. No behavioral concerns. Review of Systems Review of Systems General: No fevers, malaise, unintentional weight loss HEENT: No blurred vision or diplopia Cardiovascular: No chest pain, palpitations, or leg edema Respiratory: No shortness of breath, wheezing, cough GI: No abdominal pain, nausea, vomiting, diarrhea, constipation, melena, hematochezia : No dysuria, hematuria, increased urinary frequency, urgency MSK: No myalgia Neuro: No headaches, weakness, paresthesias Skin: No rashes or lesions Yes all other systems are reviewed and are negative and Unobtainable due to mental status Mental Status Exam Mental Status Exam Narrative: Patient Appearance: Well Grooomed and Appropriate Patient Orientation: Person and Situation Level of Consciousness: Awake and Appropriate Patient Behavior: Guarded and Cooperative Mood Description: Withdrawn Affect Description: Constricted Ability to Follow Directions: Good Speech Pattern: Clear Hallucinations: None Delusions: Not Present Thought Process: Distracted Thought Content: positive for Circumstantial Judgement: Fair Patient Appearance: Well Grooomed Patient Orientation: Person and Situation Level of Consciousness: Awake and Appropriate Patient Behavior: Passive Mood Description: Withdrawn Affect Description: Constricted Patient Cognition Impaired: Yes Ability to Follow Directions: Good Speech Pattern: Clear Memory Description: Intact Diagnostics Vital Signs (24Hr): Vital Signs - 24 hr 04/06/22 18:00 Temperature 96.5 F L Pulse Rate 95 Respiratory Rate 20 Blood Pressure 135/71 Pulse Oximetry 96 Oxygen Delivery Method Room Air BMI result Body Mass Index 29.1 Labs Results: 02/28/22 07:59 03/05/22 07:44 Imaging Radiology Impressions: ITS Impressions Head CT 02/06/22 15:04 IMPRESSION: No acute intracranial hemorrhage or territorial infarction. Progressed moderate generalized parenchymal volume loss and mild to moderate chronic white matter microangiopathy. 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 Head CT 02/26/22 10:52 IMPRESSION: No acute intracranial hemorrhage or territorial infarction. Stable diffuse parenchymal volume loss and [id number] chronic white matter microangiopathy. Incompletely visualized moderate left maxillary sinus disease with chronic sclerotic wall thickening. 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 No evidence of acute territorial infarct. No intracranial mass effect or hydrocephalus. Medications Medications Current Medications Acetaminophen (Acetaminophen 325 Mg Tablet) 650 mg PO Q6H PRN PRN Reason: Headache/Pain Mild Scale (1-3) Last Admin: 04/06/22 21:49 Dose: 650 mg Al Hydroxide/Mg Hydroxide (Magnesium Hydrox/Alum Hydrox 30 Ml Oral.Susp) 30 ml PO Q6H PRN PRN Reason: Heartburn/Nausea Amlodipine Besylate (Amlodipine Besylate 10 Mg Tablet) 10 mg PO DAILY [facility]; Protocol Last Admin: 04/06/22 10:49 Dose: 10 mg Artificial Tears (Artificial Tears 15 Ml Drops) 1 drop EYE-BOTH Q4H PRN PRN Reason: dry eyes Last Admin: 03/12/22 21:03 Dose: 1 drop Atorvastatin Calcium (Atorvastatin Calcium 80 Mg Tablet) 80 mg PO DAILY [facility] Last Admin: 04/06/22 10:49 Dose: 80 mg Bacitracin (Bacitracin Oint 14 Gm Tube) 1 appl TOPICAL BID [facility]; Protocol Last Admin: 04/06/22 22:14 Dose: 1 appl Carvedilol (Carvedilol 12.5 Mg Tablet) 12.5 mg PO BID [facility]; Protocol Last Admin: 04/06/22 21:47 Dose: 12.5 mg Divalproex Sodium (Divalproex Sodium 250 Mg Tablet.) 250 mg PO DAILY [facility] Last Admin: 04/06/22 10:49 Dose: 250 mg Divalproex Sodium (Divalproex Sodium 500 Mg Tablet.) 500 mg PO BEDTIME [facility] Last Admin: 04/06/22 21:49 Dose: 500 mg Donepezil HCl (Donepezil Hcl 10 Mg Tablet) 10 mg PO BEDTIME [facility] Last Admin: 04/06/22 21:47 Dose: 10 mg Guaifenesin/Dextromethorphan (Guaifenesin Dm 100/10/5 Ml 5 Ml Syrup) 10 ml PO Q4H PRN PRN Reason: cough Hydrochlorothiazide (Hydrochlorothiazide 25 Mg Tablet) 25 mg PO DAILY [facility]; Protocol Last Admin: 04/06/22 10:49 Dose: 25 mg Hydroxyzine HCl (Hydroxyzine Hcl 25 Mg Tablet) 25 mg PO Q6H PRN PRN Reason: Anxiety Last Admin: 03/27/22 20:27 Dose: 25 mg Levothyroxine Sodium (Levothyroxine Sodium 50 Mcg Tablet) 50 mcg PO DAILY@0600 [facility] Last Admin: 04/07/22 05:55 Dose: 50 mcg Magnesium Hydroxide (Milk Of Magnesia 30 Ml Oral.Susp) 30 ml PO DAILY PRN PRN Reason: Constipation Melatonin (Melatonin 3 Mg Tablet) 6 mg PO BEDTIME [facility] Last Admin: 04/06/22 21:00 Dose: 6 mg Melatonin (Melatonin 3 Mg Tablet) 3 mg PO BEDTIME PRN PRN Reason: insomnia Last Admin: 03/29/22 20:21 Dose: 3 mg Nystatin (Nystatin Powder 15 Gm Bottle) 1 appl TOPICAL BID [facility]; Protocol Last Admin: 04/06/22 22:14 Dose: 1 appl Polyethylene Glycol (Polyethylene Glycol 3350 17 Gm Powd.Pack) 17 gm PO DAILY PRN PRN Reason: constipation Quetiapine Fumarate (Quetiapine Fumarate 50 Mg Tablet) 50 mg PO BEDTIME [facility] Last Admin: 04/06/22 21:47 Dose: 50 mg Senna/Docusate Sodium (Sennosides/Docusate Sodium Tablet) 1 tab PO DAILY PRN PRN Reason: constipation Sertraline HCl (Sertraline Hcl 50 Mg Tablet) 50 mg PO DAILY [facility] Last Admin: 04/06/22 10:49 Dose: 50 mg Trazodone HCl (Trazodone Hcl 50 Mg Tablet) 50 mg PO BEDTIME PRN PRN Reason: Insomnia Last Admin: 03/08/22 20:26 Dose: 50 mg Allergies Allergies Allergy/AdvReac Type Severity Reaction Status Date / Time No Known Allergies Allergy Verified 02/05/22 21:09 Assessment & Plan Assessment & Plan (1) Dementia: Status: Acute Code(s): F03.90 - Unspecified dementia, unspecified severity, without behavioral disturbance, psychotic disturbance, mood disturbance, and anxiety Assessment and Plan: . (2) Bipolar disorder: Status: Acute Code(s): F31.9 - Bipolar disorder, unspecified Plan the patient is an elderly female with a past history of bipolar disorder, dementia Alzheimer's type for the last 6 months, admitted for recent exacerbation of psychosis and violent behavior.? Very poor historian unable to provide more information.? PLAN: 1. PT consult ordered 2.. Gather collateral information.? 3. Continue with regular medications.? 4. Discharge to assisted living facility Or [facility]p facility when ready 5. Increased Aricept to 10 mg p.o. q.h.s. on 02/15 6. Monitor BP 7. MRI and EEG ordered. We will follow the EEG results under was no seizure activity. 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 At this moment neurologically she is stable. 8. Continue recommendations of blood pressure medication as per hospitalist. 9. Waiting for placement. 04/05 continue tx. 04/06 continue tx. I spent minutes with the patient and/or on the patient floor today, greater than?50% of which was spent counseling/coordinating care. Reason for contiued inpatient stay Substantial Risk for: inability to function Time Spent With Patient Time: Total time managing care of this patient today ____ minutes.
[2022-04-06] MEDS: Sertraline HCL 50 MG TABLET PO (10:49)
[2022-04-06] MEDS: Divalproex Sodium 250 MG TABLET.DR PO (10:49)
[2022-04-06] MEDS: amLODIPine Besylate 10 MG TABLET PO (10:49)
[2022-04-06] MEDS: carvediloL 12.5 MG TABLET PO ×2 (10:49→21:47)
[2022-04-06] MEDS: Atorvastatin Calcium 80 MG TABLET PO (10:49)
[2022-04-06] MEDS: hydroCHLOROthiazide 25 MG TABLET PO (10:49)
[2022-04-06 18:00] VITALS: BP 135/71; PULSE 95; RESP 20; TEMP 35.8; O2SAT 96
[2022-04-06] MEDS: Melatonin 3 MG TABLET 6 MG PO (21:00)
[2022-04-06] MEDS: QUEtiapine Fumarate 50 MG TABLET PO (21:47)
[2022-04-06] MEDS: Donepezil HCl 10 MG TABLET PO (21:47)
[2022-04-06] MEDS: Acetaminophen 325 MG TABLET 650 MG PO (21:49)
[2022-04-06] MEDS: Divalproex Sodium 500 MG TABLET.DR PO (21:49)
[2022-04-06] MEDS: Nystatin Powder 15 GM BOTTLE 1 APPL TOPICAL (22:14)
[2022-04-06] MEDS: Bacitracin Oint 14 GM TUBE 1 APPL TOPICAL (22:14)
[2022-04-07] MEDS: Levothyroxine Sodium 50 MCG TABLET PO (05:55)
[2022-04-07 06:00] VITALS: BP 115/60; PULSE 63; RESP 16; TEMP 36.6; O2SAT 96
[2022-04-07] MEDS: amLODIPine Besylate 10 MG TABLET PO (09:33)
[2022-04-07] MEDS: Divalproex Sodium 250 MG TABLET.DR PO (09:33)
[2022-04-07] MEDS: Sertraline HCL 50 MG TABLET PO (09:33)
[2022-04-07] MEDS: Atorvastatin Calcium 80 MG TABLET PO (09:34)
[2022-04-07] MEDS: hydroCHLOROthiazide 25 MG TABLET PO (09:34)
[2022-04-07] MEDS: carvediloL 12.5 MG TABLET PO (09:34)
[2022-04-07] MEDS: Nystatin Powder 15 GM BOTTLE 1 APPL TOPICAL (09:39)
[2022-04-07] MEDS: Bacitracin Oint 14 GM TUBE 1 APPL TOPICAL (09:41)
[2022-04-07] MEDS: Acetaminophen 325 MG TABLET 650 MG PO ×2 (13:41→21:50)
--- NOTE | 2022-04-07 17:14 | P.PNPSI_ITS ---
Subjective Subjective Date of Service: 04/07/22 Reason For Visit: depression, anxiety, alzheimers Interim History: The nursing staff reported the patient had been compliant with treatment, the staff reported that she has attended to groups, she is cooperative and pleasant. Review of Systems Review of Systems Yes all other systems are reviewed and are negative and Unobtainable due to mental status Mental Status Exam Mental Status Exam Patient Appearance: Well Grooomed and Appropriate Patient Orientation: Person, Place and Situation Level of Consciousness: Awake, Appropriate and Follows Commands Patient Behavior: Cooperative Mood Description: Calm Affect Description: Relaxed Patient Cognition Impaired: Yes Ability to Follow Directions: Good Speech Pattern: Clear Memory Description: Remote Impaired, Immediate Impaired, Episodic Impaired, Recent Impaired and Working Impaired Judgement: Fair Diagnostics Vital Signs (24Hr): Vital Signs - 24 hr 04/06/22 18:00 04/07/22 06:00 Temperature 96.5 F L 97.9 F Pulse Rate 95 63 Respiratory Rate 20 16 Blood Pressure 135/71 115/60 Pulse Oximetry 96 96 Oxygen Delivery Method Room Air Room Air BMI result Body Mass Index 29.1 Labs 05/09/22 08:02 05/09/22 08:02 Imaging Radiology Impressions: ITS Impressions Head CT 02/06/22 15:04 IMPRESSION: No acute intracranial hemorrhage or territorial infarction. Progressed moderate generalized parenchymal volume loss and mild to moderate chronic white matter microangiopathy. 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 Head CT 02/26/22 10:52 IMPRESSION: No acute intracranial hemorrhage or territorial infarction. Stable diffuse parenchymal volume loss and ogrp-sr-[id number] chronic white matter microangiopathy. Incompletely visualized moderate left maxillary sinus disease with chronic sclerotic wall thickening. 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 No evidence of acute territorial infarct. No intracranial mass effect or hydrocephalus. Medications Medications Current Medications Acetaminophen (Acetaminophen 325 Mg Tablet) 650 mg PO Q6H PRN PRN Reason: Headache/Pain Mild Scale (1-3) Last Admin: 04/07/22 13:41 Dose: 650 mg Al Hydroxide/Mg Hydroxide (Magnesium Hydrox/Alum Hydrox 30 Ml Oral.Susp) 30 ml PO Q6H PRN PRN Reason: Heartburn/Nausea Amlodipine Besylate (Amlodipine Besylate 10 Mg Tablet) 10 mg PO DAILY [facility]; Protocol Last Admin: 04/07/22 09:33 Dose: 10 mg Artificial Tears (Artificial Tears 15 Ml Drops) 1 drop EYE-BOTH Q4H PRN PRN Reason: dry eyes Last Admin: 03/12/22 21:03 Dose: 1 drop Atorvastatin Calcium (Atorvastatin Calcium 80 Mg Tablet) 80 mg PO DAILY [facility] Last Admin: 04/07/22 09:34 Dose: 80 mg Bacitracin (Bacitracin Oint 14 Gm Tube) 1 appl TOPICAL BID [facility]; Protocol Last Admin: 04/07/22 09:41 Dose: 1 appl Carvedilol (Carvedilol 12.5 Mg Tablet) 12.5 mg PO BID [facility]; Protocol Last Admin: 04/07/22 09:34 Dose: 12.5 mg Divalproex Sodium (Divalproex Sodium 250 Mg Tablet.) 250 mg PO DAILY [facility] Last Admin: 04/07/22 09:33 Dose: 250 mg Divalproex Sodium (Divalproex Sodium 500 Mg Tablet.) 500 mg PO BEDTIME [facility] Last Admin: 04/06/22 21:49 Dose: 500 mg Donepezil HCl (Donepezil Hcl 10 Mg Tablet) 10 mg PO BEDTIME [facility] Last Admin: 04/06/22 21:47 Dose: 10 mg Guaifenesin/Dextromethorphan (Guaifenesin Dm 100/10/5 Ml 5 Ml Syrup) 10 ml PO Q4H PRN PRN Reason: cough Hydrochlorothiazide (Hydrochlorothiazide 25 Mg Tablet) 25 mg PO DAILY [facility]; Protocol Last Admin: 04/07/22 09:34 Dose: 25 mg Hydroxyzine HCl (Hydroxyzine Hcl 25 Mg Tablet) 25 mg PO Q6H PRN PRN Reason: Anxiety Last Admin: 03/27/22 20:27 Dose: 25 mg Levothyroxine Sodium (Levothyroxine Sodium 50 Mcg Tablet) 50 mcg PO DAILY@0600 [facility] Last Admin: 04/07/22 05:55 Dose: 50 mcg Magnesium Hydroxide (Milk Of Magnesia 30 Ml Oral.Susp) 30 ml PO DAILY PRN PRN Reason: Constipation Melatonin (Melatonin 3 Mg Tablet) 6 mg PO BEDTIME [facility] Last Admin: 04/06/22 21:00 Dose: 6 mg Melatonin (Melatonin 3 Mg Tablet) 3 mg PO BEDTIME PRN PRN Reason: insomnia Last Admin: 03/29/22 20:21 Dose: 3 mg Nystatin (Nystatin Powder 15 Gm Bottle) 1 appl TOPICAL BID [facility]; Protocol Last Admin: 04/07/22 09:39 Dose: 1 appl Polyethylene Glycol (Polyethylene Glycol 3350 17 Gm Powd.Pack) 17 gm PO DAILY PRN PRN Reason: constipation Quetiapine Fumarate (Quetiapine Fumarate 50 Mg Tablet) 50 mg PO BEDTIME [facility] Last Admin: 04/06/22 21:47 Dose: 50 mg Senna/Docusate Sodium (Sennosides/Docusate Sodium Tablet) 1 tab PO DAILY PRN PRN Reason: constipation Sertraline HCl (Sertraline Hcl 50 Mg Tablet) 50 mg PO DAILY [facility] Last Admin: 04/07/22 09:33 Dose: 50 mg Trazodone HCl (Trazodone Hcl 50 Mg Tablet) 50 mg PO BEDTIME PRN PRN Reason: Insomnia Last Admin: 03/08/22 20:26 Dose: 50 mg Allergies Allergies Allergy/AdvReac Type Severity Reaction Status Date / Time No Known Allergies Allergy Verified 02/05/22 21:09 Assessment & Plan Assessment & Plan (1) Dementia: Status: Acute Code(s): F03.90 - Unspecified dementia, unspecified severity, without behavioral distu rbance, psychotic disturbance, mood disturbance, and anxiety Assessment and Plan: . (2) Bipolar disorder: Status: Acute Code(s): F31.9 - Bipolar disorder, unspecified Plan the patient is an elderly female with a past history of bipolar disorder, dementia Alzheimer's type for the last 6 months, admitted for recent exacerbation of psychosis and violent behavior.? Very poor historian unable to provide more information.? PLAN: 1. PT consult ordered 2.. Gather collateral information.? 3. Continue with regular medications.? 4. Discharge to assisted living facility Or custodial facility when ready 5. Increased Aricept to 10 mg p.o. q.h.s. on 02/15 6. Monitor BP 7. MRI and EEG ordered. We will follow the EEG results under was no seizure activity. 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 At this moment neurologically she is stable. 8. Continue recommendations of blood pressure medication as per hospitalist. 9. Waiting for placement. 04/05 continue tx. 04/06 continue tx. 04/07 continue treatment plan I spent minutes with the patient and/or on the patient floor today, greater than?50% of which was spent counseling/coordinating care. Reason for contiued inpatient stay Substantial Risk for: inability to function and rapid decompensation Time Spent With Patient Time: Total time managing care of this patient today ____ minutes.
[2022-04-07 19:00] VITALS: BP 138/77; PULSE 55; RESP 17; TEMP 36.3; O2SAT 99
[2022-04-07] MEDS: QUEtiapine Fumarate 50 MG TABLET PO (20:08)
[2022-04-07] MEDS: Melatonin 3 MG TABLET 6 MG PO (20:08)
[2022-04-07] MEDS: Divalproex Sodium 500 MG TABLET.DR PO (20:08)
[2022-04-07] MEDS: Donepezil HCl 10 MG TABLET PO (20:08)
[2022-04-08] MEDS: Levothyroxine Sodium 50 MCG TABLET PO (05:40)
[2022-04-08 06:00] VITALS: BP 157/76; PULSE 76; RESP 16; TEMP 37.1; O2SAT 97
[2022-04-08] MEDS: Divalproex Sodium 250 MG TABLET.DR PO (09:34)
[2022-04-08] MEDS: Atorvastatin Calcium 80 MG TABLET PO (09:34)
[2022-04-08] MEDS: Sertraline HCL 50 MG TABLET PO (09:34)
[2022-04-08] MEDS: carvediloL 12.5 MG TABLET PO ×2 (09:34→20:23)
[2022-04-08] MEDS: hydroCHLOROthiazide 25 MG TABLET PO (09:35)
[2022-04-08] MEDS: amLODIPine Besylate 10 MG TABLET PO (09:35)
[2022-04-08] MEDS: Bacitracin Oint 14 GM TUBE 1 APPL TOPICAL ×2 (09:55→20:23)
[2022-04-08] MEDS: Nystatin Powder 15 GM BOTTLE 1 APPL TOPICAL ×2 (09:56→20:24)
--- NOTE | 2022-04-08 15:55 | HO.PSYCHPN ---
Subjective Subjective Date of Service: 04/08/22 Reason For Visit: depression, anxiety, alzheimers Interim History: Discussed with team, reviewed chart. Pt is in bed. She is awake, alert and in good humor, joking during our meeting. She denies current symptoms of concern, denies medication side effects and interviewed tw about family, holiday plans and traditions and then shared her own. She reports she hopes for discharge soon. Medication Compliance: Yes Side effects from medications: No Attending Groups: Yes Review of Systems Acute medical concerns: No Medical Review of Systems: unchanged Mental Status Exam Mental Status Exam Patient Appearance: Appropriate Patient Orientation: Person and Place Level of Consciousness: Alert Patient Behavior: Appropriate, Talkative, Cooperative and Good Eye Contact Mood Description: Appropriate Affect Description: Appropriate Patient Cognition Impaired: Yes Ability to Follow Directions: Good Speech Pattern: Spontaneous Speech Memory Description: Remote Impaired, Immediate Impaired, Episodic Impaired, Recent Impaired and Working Impaired Hallucinations: None (denies) Delusions: Not Present (denies) Thought Content: positive for [place], positive for Circumstantial and positive for Suicidal Ideation (denies) Depressive Symptoms: Thoughts of /Suicide (denies) Judgement: Fair Diagnostics Vital Signs (24Hr): Vital Signs - 24 hr 04/07/22 19:00 04/08/22 06:00 Temperature 97.4 F 98.8 F Pulse Rate 55 76 Respiratory Rate 17 16 Blood Pressure 138/77 157/76 H Pulse Oximetry 99 97 Oxygen Delivery Method Room Air Room Air BMI result Body Mass Index 29.1 Labs Results: 02/28/22 07:59 03/05/22 07:44 Imaging Radiology Impressions: ITS Impressions Head CT 02/06/22 15:04 IMPRESSION: No acute intracranial hemorrhage or territorial infarction. Progressed moderate generalized parenchymal volume loss and mild to moderate chronic white matter microangiopathy. 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 Head CT 02/26/22 10:52 IMPRESSION: No acute intracranial hemorrhage or territorial infarction. Stable diffuse parenchymal volume loss and [id number] chronic white matter microangiopathy. Incompletely visualized moderate left maxillary sinus disease with chronic sclerotic wall thickening. 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 No evidence of acute territorial infarct. No intracranial mass effect or hydrocephalus. Medications Medications Current Medications Acetaminophen (Acetaminophen 325 Mg Tablet) 650 mg PO Q6H PRN PRN Reason: Headache/Pain Mild Scale (1-3) Last Admin: 04/07/22 21:50 Dose: 650 mg Al Hydroxide/Mg Hydroxide (Magnesium Hydrox/Alum Hydrox 30 Ml Oral.Susp) 30 ml PO Q6H PRN PRN Reason: Heartburn/Nausea Amlodipine Besylate (Amlodipine Besylate 10 Mg Tablet) 10 mg PO DAILY [facility]; Protocol Last Admin: 04/08/22 09:35 Dose: 10 mg Artificial Tears (Artificial Tears 15 Ml Drops) 1 drop EYE-BOTH Q4H PRN PRN Reason: dry eyes Last Admin: 03/12/22 21:03 Dose: 1 drop Atorvastatin Calcium (Atorvastatin Calcium 80 Mg Tablet) 80 mg PO DAILY [facility] Last Admin: 04/08/22 09:34 Dose: 80 mg Bacitracin (Bacitracin Oint 14 Gm Tube) 1 appl TOPICAL BID [facility]; Protocol Last Admin: 04/08/22 09:55 Dose: 1 appl Carvedilol (Carvedilol 12.5 Mg Tablet) 12.5 mg PO BID [facility]; Protocol Last Admin: 04/08/22 09:34 Dose: 12.5 mg Divalproex Sodium (Divalproex Sodium 250 Mg Tablet.) 250 mg PO DAILY [facility] Last Admin: 04/08/22 09:34 Dose: 250 mg Divalproex Sodium (Divalproex Sodium 500 Mg Tablet.) 500 mg PO BEDTIME [facility] Last Admin: 04/07/22 20:08 Dose: 500 mg Donepezil HCl (Donepezil Hcl 10 Mg Tablet) 10 mg PO BEDTIME [facility] Last Admin: 04/07/22 20:08 Dose: 10 mg Guaifenesin/Dextromethorphan (Guaifenesin Dm 100/10/5 Ml 5 Ml Syrup) 10 ml PO Q4H PRN PRN Reason: cough Hydrochlorothiazide (Hydrochlorothiazide 25 Mg Tablet) 25 mg PO DAILY [facility]; Protocol Last Admin: 04/08/22 09:35 Dose: 25 mg Hydroxyzine HCl (Hydroxyzine Hcl 25 Mg Tablet) 25 mg PO Q6H PRN PRN Reason: Anxiety Last Admin: 03/27/22 20:27 Dose: 25 mg Levothyroxine Sodium (Levothyroxine Sodium 50 Mcg Tablet) 50 mcg PO DAILY@0600 [facility] Last Admin: 04/08/22 05:40 Dose: 50 mcg Magnesium Hydroxide (Milk Of Magnesia 30 Ml Oral.Susp) 30 ml PO DAILY PRN PRN Reason: Constipation Melatonin (Melatonin 3 Mg Tablet) 6 mg PO BEDTIME [facility] Last Admin: 04/07/22 20:08 Dose: 6 mg Melatonin (Melatonin 3 Mg Tablet) 3 mg PO BEDTIME PRN PRN Reason: insomnia Last Admin: 03/29/22 20:21 Dose: 3 mg Nystatin (Nystatin Powder 15 Gm Bottle) 1 appl TOPICAL BID [facility]; Protocol Last Admin: 04/08/22 09:56 Dose: 1 appl Polyethylene Glycol (Polyethylene Glycol 3350 17 Gm Powd.Pack) 17 gm PO DAILY PRN PRN Reason: constipation Quetiapine Fumarate (Quetiapine Fumarate 50 Mg Tablet) 50 mg PO BEDTIME [facility] Last Admin: 04/07/22 20:08 Dose: 50 mg Senna/Docusate Sodium (Sennosides/Docusate Sodium Tablet) 1 tab PO DAILY PRN PRN Reason: constipation Sertraline HCl (Sertraline Hcl 50 Mg Tablet) 50 mg PO DAILY [facility] Last Admin: 04/08/22 09:34 Dose: 50 mg Trazodone HCl (Trazodone Hcl 50 Mg Tablet) 50 mg PO BEDTIME PRN PRN Reason: Insomnia Last Admin: 03/08/22 20:26 Dose: 50 mg Allergies Allergies Allergy/AdvReac Type Severity Reaction Status Date / Time No Known Allergies Allergy Verified 02/05/22 21:09 Assessment & Plan Assessment & Plan (1) Dementia: Status: Acute Code(s): F03.90 - Unspecified dementia, unspecified severity, without behavioral disturbance, psychotic disturbance, mood disturbance, and anxiety Assessment and Plan: . (2) Bipolar disorder: Status: Acute Code(s): F31.9 - Bipolar disorder, unspecified Plan the patient is an elderly female with a past history of bipolar disorder, dementia Alzheimer's type for the last 6 months, admitted for recent exacerbation of psychosis and violent behavior.? Very poor historian unable to provide more information.? PLAN: 1. PT consult ordered 2.. Gather collateral information.? 3. Continue with regular medications.? 4. Discharge to assisted living facility Or alf facility when ready 5. Increased Aricept to 10 mg p.o. q.h.s. on 02/15 6. Monitor BP 7. MRI and EEG ordered. We will follow the EEG results under was no seizure activity. 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 At this moment neurologically she is stable. 8. Continue recommendations of blood pressure medication as per hospitalist. 9. Waiting for placement. 04/05 continue tx. 04/06 continue tx. 04/08/22: Continue current plan. I spent minutes with the patient and/or on the patient floor today, greater than?50% of which was spent counseling/coordinating care. Patient educated on: medication risk/benefits and therapeutic strategies Informed Consent: does not understand Reason for contiued inpatient stay Substantial Risk for: rapid decompensation Time Spent With Patient Time: Total time managing care of this patient today ___20_ minutes.
[2022-04-08] MEDS: Acetaminophen 325 MG TABLET 650 MG PO (17:54)
[2022-04-08 18:00] VITALS: BP 124/63; PULSE 63; RESP 18; TEMP 37.2; O2SAT 94
[2022-04-08] MEDS: Melatonin 3 MG TABLET 6 MG PO (20:22)
[2022-04-08] MEDS: Donepezil HCl 10 MG TABLET PO (20:23)
[2022-04-08] MEDS: QUEtiapine Fumarate 50 MG TABLET PO (20:23)
[2022-04-08] MEDS: Divalproex Sodium 500 MG TABLET.DR PO (20:23)
[2022-04-09] MEDS: Levothyroxine Sodium 50 MCG TABLET PO (06:22)
[2022-04-09 07:30] VITALS: BP 139/60; PULSE 58; RESP 16; TEMP 37.2; O2SAT 98
[2022-04-09 10:37] LABS: Influenza A PCR NEGATIVE (Negative); Influenza B PCR NEGATIVE (Negative); Resp Syncy Virus RNA Qual PCR NEGATIVE (Negative); SARS COV2 PCR INHOUSE POSITIVE (Negative)
[2022-04-09] MEDS: Divalproex Sodium 250 MG TABLET.DR PO (11:34)
[2022-04-09] MEDS: Atorvastatin Calcium 80 MG TABLET PO (11:34)
[2022-04-09] MEDS: Sertraline HCL 50 MG TABLET PO (11:34)
--- NOTE | 2022-04-09 11:34 | P.PNPSI_ITS ---
Subjective Subjective Date of Service: 04/09/22 Reason For Visit: depression, anxiety, alzheimers Subjective Notes: Conditional Voluntary Interim History: Pt had sore throat, covid test came back positive. Pt reports congestion, no signs of respiratory distressed at this point. Afebrile. No isolated. Will start loratadine. Pt denies any other physical concerns, including GI symptoms. No headache today, which she has been complaining of in past few days- could have been related to covid. Per nursing, pt sleeping and eating well. No SI/HI. Medication Compliance: Yes Side effects from medications: No Attending Groups: Yes Review of Systems Review of Systems General: No fevers, malaise, unintentional weight loss HEENT: No blurred vision or diplopia Cardiovascular: No chest pain, palpitations, or leg edema Respiratory: No shortness of breath, wheezing, cough GI: No abdominal pain, nausea, vomiting, diarrhea, constipation, melena, hematochezia : No dysuria, hematuria, increased urinary frequency, urgency MSK: No myalgia Neuro: No headaches, weakness, paresthesias Skin: No rashes or lesions Yes all other systems are reviewed and are negative and Unobtainable due to mental status Diagnostics Vital Signs (24Hr): Vital Signs - 24 hr 04/08/22 18:00 Temperature 98.9 F Pulse Rate 63 Respiratory Rate 18 Blood Pressure 124/63 Pulse Oximetry 94 Oxygen Delivery Method Room Air BMI result Body Mass Index 29.1 Labs Results: 02/28/22 07:59 03/05/22 07:44 Labs: Laboratory Results - last 48 hr 04/09/22 09:40 Influenza Type A (PCR) NEGATIVE Influenza Type B (PCR) NEGATIVE RSV RNA Qual (PCR) NEGATIVE SARS-CoV-2 RNA (RT-PCR) POSITIVE A Imaging Radiology Impressions: ITS Impressions Head CT 02/06/22 15:04 IMPRESSION: No acute intracranial hemorrhage or territorial infarction. Progressed moderate generalized parenchymal volume loss and mild to moderate chronic white matter microangiopathy. 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 Head CT 02/26/22 10:52 IMPRESSION: No acute intracranial hemorrhage or territorial infarction. Stable diffuse parenchymal volume loss and [id number] chronic white matter microangiopathy. Incompletely visualized moderate left maxillary sinus disease with chronic sclerotic wall thickening. 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 No evidence of acute territorial infarct. No intracranial mass effect or hydrocephalus. Medications Medications Current Medications Acetaminophen (Acetaminophen 325 Mg Tablet) 650 mg PO Q6H PRN PRN Reason: Headache/Pain Mild Scale (1-3) Last Admin: 04/08/22 17:54 Dose: 650 mg Al Hydroxide/Mg Hydroxide (Magnesium Hydrox/Alum Hydrox 30 Ml Oral.Susp) 30 ml PO Q6H PRN PRN Reason: Heartburn/Nausea Amlodipine Besylate (Amlodipine Besylate 10 Mg Tablet) 10 mg PO DAILY [facility]; Protocol Last Admin: 04/08/22 09:35 Dose: 10 mg Artificial Tears (Artificial Tears 15 Ml Drops) 1 drop EYE-BOTH Q4H PRN PRN Reason: dry eyes Last Admin: 03/12/22 21:03 Dose: 1 drop Atorvastatin Calcium (Atorvastatin Calcium 80 Mg Tablet) 80 mg PO DAILY [facility] Last Admin: 04/08/22 09:34 Dose: 80 mg Bacitracin (Bacitracin Oint 14 Gm Tube) 1 appl TOPICAL BID [facility]; Protocol Last Admin: 04/08/22 20:23 Dose: 1 appl Carvedilol (Carvedilol 12.5 Mg Tablet) 12.5 mg PO BID [facility]; Protocol Last Admin: 04/08/22 20:23 Dose: 12.5 mg Divalproex Sodium (Divalproex Sodium 250 Mg Tablet.) 250 mg PO DAILY [facility] Last Admin: 04/08/22 09:34 Dose: 250 mg Divalproex Sodium (Divalproex Sodium 500 Mg Tablet.) 500 mg PO BEDTIME [facility] Last Admin: 04/08/22 20:23 Dose: 500 mg Donepezil HCl (Donepezil Hcl 10 Mg Tablet) 10 mg PO BEDTIME [facility] Last Admin: 04/08/22 20:23 Dose: 10 mg Guaifenesin/Dextromethorphan (Guaifenesin Dm 100/10/5 Ml 5 Ml Syrup) 10 ml PO Q4H PRN PRN Reason: cough Hydrochlorothiazide (Hydrochlorothiazide 25 Mg Tablet) 25 mg PO DAILY [facility]; Protocol Last Admin: 04/08/22 09:35 Dose: 25 mg Hydroxyzine HCl (Hydroxyzine Hcl 25 Mg Tablet) 25 mg PO Q6H PRN PRN Reason: Anxiety Last Admin: 03/27/22 20:27 Dose: 25 mg Levothyroxine Sodium (Levothyroxine Sodium 50 Mcg Tablet) 50 mcg PO DAILY@0600 [facility] Last Admin: 04/09/22 06:22 Dose: 50 mcg Loratadine (Loratadine 10 Mg Tablet) 10 mg PO DAILY [facility] Magnesium Hydroxide (Milk Of Magnesia 30 Ml Oral.Susp) 30 ml PO DAILY PRN PRN Reason: Constipation Melatonin (Melatonin 3 Mg Tablet) 6 mg PO BEDTIME [facility] Last Admin: 04/08/22 20:22 Dose: 6 mg Melatonin (Melatonin 3 Mg Tablet) 3 mg PO BEDTIME PRN PRN Reason: insomnia Last Admin: 03/29/22 20:21 Dose: 3 mg Nystatin (Nystatin Powder 15 Gm Bottle) 1 appl TOPICAL BID [facility]; Protocol Last Admin: 04/08/22 20:24 Dose: 1 appl Polyethylene Glycol (Polyethylene Glycol 3350 17 Gm Powd.Pack) 17 gm PO DAILY PRN PRN Reason: constipation Quetiapine Fumarate (Quetiapine Fumarate 50 Mg Tablet) 50 mg PO BEDTIME [facility] Last Admin: 04/08/22 20:23 Dose: 50 mg Senna/Docusate Sodium (Sennosides/Docusate Sodium Tablet) 1 tab PO DAILY PRN PRN Reason: constipation Sertraline HCl (Sertraline Hcl 50 Mg Tablet) 50 mg PO DAILY [facility] Last Admin: 04/08/22 09:34 Dose: 50 mg Trazodone HCl (Trazodone Hcl 50 Mg Tablet) 50 mg PO BEDTIME PRN PRN Reason: Insomnia Last Admin: 03/08/22 20:26 Dose: 50 mg Allergies Allergies Allergy/AdvReac Type Severity Reaction Status Date / Time No Known Allergies Allergy Verified 02/05/22 21:09 Assessment & Plan Assessment & Plan (1) Dementia: Status: Acute Code(s): F03.90 - Unspecified dementia, unspecified severity, without behavioral disturbance, psychotic disturbance, mood disturbance, and anxiety Assessment and Plan: . (2) Bipolar disorder: Status: Acute Code(s): F31.9 - Bipolar disorder, unspecified Plan the patient is an elderly female with a past history of bipolar disorder, dementia Alzheimer's type for the last 6 months, admitted for recent exacerbation of psychosis and violent behavior.? Very poor historian unable to provide more information.? PLAN: 1. PT consult ordered 2.. Gather collateral information.? 3. Continue with regular medications.? 4. Discharge to assisted living facility Or [facility] facility when ready 5. Increased Aricept to 10 mg p.o. q.h.s. on 02/15 6. Monitor BP 7. MRI and EEG ordered. We will follow the EEG results under was no seizure activity. 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 At this moment neurologically she is stable. 8. Continue recommendations of blood pressure medication as per hospitalist. 9. Waiting for placement. 04/05 continue tx. 04/06 continue tx. 04/08/22: Continue current plan. 04/09 continue tx/ add loratadine. Pt tested positive for covid today. No signs of respiratory distressed at this moment, no SOB,afebrile. Pt reports congestion. continue monitor respiratory status. I spent minutes with the patient and/or on the patient floor today, greater than?50% of which was spent counseling/coordinating care. Reason for contiued inpatient stay Substantial Risk for: inability to function Time Spent With Patient Time: Total time managing care of this patient today ____ minutes.
[2022-04-09] MEDS: amLODIPine Besylate 10 MG TABLET PO (11:35)
[2022-04-09] MEDS: hydroCHLOROthiazide 25 MG TABLET PO (11:36)
[2022-04-09] MEDS: Loratadine 10 MG TABLET PO (13:57)
[2022-04-09 18:00] VITALS: BP 143/69; PULSE 62; RESP 18; TEMP 36.6; O2SAT 95
[2022-04-09] MEDS: carvediloL 12.5 MG TABLET PO (21:33)
[2022-04-09] MEDS: Melatonin 3 MG TABLET 6 MG PO (21:33)
[2022-04-09] MEDS: QUEtiapine Fumarate 50 MG TABLET PO (21:33)
[2022-04-09] MEDS: Donepezil HCl 10 MG TABLET PO (21:33)
[2022-04-09] MEDS: Divalproex Sodium 500 MG TABLET.DR PO (21:33)
[2022-04-10 06:00] VITALS: BP 140/70; PULSE 88; RESP 16; TEMP 36.8
--- NOTE | 2022-04-10 10:09 | HO.PSYCHPN ---
Subjective Subjective Date of Service: 04/10/22 Reason For Visit: depression, anxiety, alzheimers Subjective Notes: Conditional Voluntary Interim History: Pt positive for covid since 04/09. Pt denies SOB, chills, muscle aches. No GI symptoms. She reports some congestion and head cold. O2 sats stable >94. Pt denies SI/HI. otherwise doing well and hoping to be out of isolation soon. We discussed starting paxlovid- at moment mild symptoms, but explained to pt that goal would be to reduced risk of complication given risk factors but pt declines at the moment. Medication Compliance: Yes Review of Systems Review of Systems General: No fevers, malaise, unintentional weight loss HEENT: No blurred vision or diplopia Cardiovascular: No chest pain, palpitations, or leg edema Respiratory: No shortness of breath, wheezing, cough GI: No abdominal pain, nausea, vomiting, diarrhea, constipation, melena, hematochezia : No dysuria, hematuria, increased urinary frequency, urgency MSK: No myalgia Neuro: No headaches, weakness, paresthesias Skin: No rashes or lesions Yes all other systems are reviewed and are negative and Unobtainable due to mental status Mental Status Exam Mental Status Exam Narrative: Patient Appearance: Well Grooomed and Appropriate Patient Orientation: Person and Situation Level of Consciousness: Awake and Appropriate Patient Behavior: Guarded and Cooperative Mood Description: Withdrawn Affect Description: Constricted Ability to Follow Directions: Good Speech Pattern: Clear Hallucinations: None Delusions: Not Present Thought Process: Distracted Thought Content: positive for Circumstantial Judgement: Fair Patient Appearance: Appropriate Patient Orientation: Person and Place Level of Consciousness: Alert Patient Behavior: Appropriate, Talkative, Cooperative and Good Eye Contact Mood Description: Appropriate Affect Description: Appropriate Patient Cognition Impaired: Yes Ability to Follow Directions: Good Speech Pattern: Spontaneous Speech Memory Description: Remote Impaired, Immediate Impaired, Episodic Impaired, Recent Impaired and Working Impaired Diagnostics Vital Signs (24Hr): Vital Signs - 24 hr 04/09/22 18:00 Temperature 97.9 F Pulse Rate 62 Respiratory Rate 18 Blood Pressure 143/69 H Pulse Oximetry 95 Oxygen Delivery Method Room Air BMI result Body Mass Index 29.1 Labs Results: 02/28/22 07:59 03/05/22 07:44 Labs: Laboratory Results - last 48 hr 04/09/22 09:40 Influenza Type A (PCR) NEGATIVE Influenza Type B (PCR) NEGATIVE RSV RNA Qual (PCR) NEGATIVE SARS-CoV-2 RNA (RT-PCR) POSITIVE A Imaging Radiology Impressions: ITS Impressions Head CT 02/06/22 15:04 IMPRESSION: No acute intracranial hemorrhage or territorial infarction. Progressed moderate generalized parenchymal volume loss and mild to moderate chronic white matter microangiopathy. 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 Head CT 02/26/22 10:52 IMPRESSION: No acute intracranial hemorrhage or territorial infarction. Stable diffuse parenchymal volume loss and [id number] chronic white matter microangiopathy. Incompletely visualized moderate left maxillary sinus disease with chronic sclerotic wall thickening. 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 No evidence of acute territorial infarct. No intracranial mass effect or hydrocephalus. Medications Medications Current Medications Acetaminophen (Acetaminophen 325 Mg Tablet) 650 mg PO Q6H PRN PRN Reason: Headache/Pain Mild Scale (1-3) Last Admin: 04/10/22 11:15 Dose: 650 mg Al Hydroxide/Mg Hydroxide (Magnesium Hydrox/Alum Hydrox 30 Ml Oral.Susp) 30 ml PO Q6H PRN PRN Reason: Heartburn/Nausea Amlodipine Besylate (Amlodipine Besylate 10 Mg Tablet) 10 mg PO DAILY [facility]; Protocol Last Admin: 04/10/22 10:17 Dose: 10 mg Artificial Tears (Artificial Tears 15 Ml Drops) 1 drop EYE-BOTH Q4H PRN PRN Reason: dry eyes Last Admin: 03/12/22 21:03 Dose: 1 drop Atorvastatin Calcium (Atorvastatin Calcium 80 Mg Tablet) 80 mg PO DAILY [facility] Last Admin: 04/10/22 10:17 Dose: 80 mg Bacitracin (Bacitracin Oint 14 Gm Tube) 1 appl TOPICAL BID [facility]; Protocol Last Admin: 04/10/22 10:17 Dose: Not Given Carvedilol (Carvedilol 12.5 Mg Tablet) 12.5 mg PO BID [facility]; Protocol Last Admin: 04/10/22 10:17 Dose: 12.5 mg Divalproex Sodium (Divalproex Sodium 250 Mg Tablet.) 250 mg PO DAILY [facility] Last Admin: 04/10/22 10:16 Dose: 250 mg Divalproex Sodium (Divalproex Sodium 500 Mg Tablet.Dr) 500 mg PO BEDTIME [facility] Last Admin: 04/09/22 21:33 Dose: 500 mg Donepezil HCl (Donepezil Hcl 10 Mg Tablet) 10 mg PO BEDTIME [facility] Last Admin: 04/09/22 21:33 Dose: 10 mg Guaifenesin/Dextromethorphan (Guaifenesin Dm 100/10/5 Ml 5 Ml Syrup) 10 ml PO Q4H PRN PRN Reason: cough Hydrochlorothiazide (Hydrochlorothiazide 25 Mg Tablet) 25 mg PO DAILY [facility]; Protocol Last Admin: 04/10/22 10:16 Dose: 25 mg Hydroxyzine HCl (Hydroxyzine Hcl 25 Mg Tablet) 25 mg PO Q6H PRN PRN Reason: Anxiety Last Admin: 03/27/22 20:27 Dose: 25 mg Levothyroxine Sodium (Levothyroxine Sodium 50 Mcg Tablet) 50 mcg PO DAILY@0600 [facility] Last Admin: 04/10/22 10:17 Dose: Not Given Loratadine (Loratadine 10 Mg Tablet) 10 mg PO DAILY [facility] Last Admin: 04/10/22 10:16 Dose: 10 mg Magnesium Hydroxide (Milk Of Magnesia 30 Ml Oral.Susp) 30 ml PO DAILY PRN PRN Reason: Constipation Melatonin (Melatonin 3 Mg Tablet) 6 mg PO BEDTIME [facility] Last Admin: 04/09/22 21:33 Dose: 6 mg Melatonin (Melatonin 3 Mg Tablet) 3 mg PO BEDTIME PRN PRN Reason: insomnia Last Admin: 03/29/22 20:21 Dose: 3 mg Nystatin (Nystatin Powder 15 Gm Bottle) 1 appl TOPICAL BID [facility]; Protocol Last Admin: 04/10/22 10:17 Dose: Not Given Polyethylene Glycol (Polyethylene Glycol 3350 17 Gm Powd.Pack) 17 gm PO DAILY PRN PRN Reason: constipation Quetiapine Fumarate (Quetiapine Fumarate 50 Mg Tablet) 50 mg PO BEDTIME [facility] Last Admin: 04/09/22 21:33 Dose: 50 mg Senna/Docusate Sodium (Sennosides/Docusate Sodium Tablet) 1 tab PO DAILY PRN PRN Reason: constipation Sertraline HCl (Sertraline Hcl 50 Mg Tablet) 50 mg PO DAILY [facility] Last Admin: 04/10/22 10:17 Dose: 50 mg Trazodone HCl (Trazodone Hcl 50 Mg Tablet) 50 mg PO BEDTIME PRN PRN Reason: Insomnia Last Admin: 03/08/22 20:26 Dose: 50 mg Allergies Allergies Allergy/AdvReac Type Severity Reaction Status Date / Time No Known Allergies Allergy Verified 02/05/22 21:09 Assessment & Plan Assessment & Plan (1) Dementia: Status: Acute Code(s): F03.90 - Unspecified dementia, unspecified severity, without behavioral disturbance, psychotic disturbance, mood disturbance, and anxiety Assessment and Plan: . (2) Bipolar disorder: Status: Acute Code(s): F31.9 - Bipolar disorder, unspecified Plan the patient is an elderly female with a past history of bipolar disorder, dementia Alzheimer's type for the last 6 months, admitted for recent exacerbation of psychosis and violent behavior.? Very poor historian unable to provide more information.? PLAN: 1. PT consult ordered 2.. Gather collateral information.? 3. Continue with regular medications.? 4. Discharge to assisted living facility Or fpc facility when ready 5. Increased Aricept to 10 mg p.o. q.h.s. on 02/15 6. Monitor BP 7. MRI and EEG ordered. We will follow the EEG results under was no seizure activity. 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 At this moment neurologically she is stable. 8. Continue recommendations of blood pressure medication as per hospitalist. 9. Waiting for placement. 04/05 continue tx. 04/06 continue tx. 04/08/22: Continue current plan. 04/09 continue tx/ add loratadine. Pt tested positive for covid today. No signs of respiratory distressed at this moment, no SOB,afebrile. Pt reports congestion. continue monitor respiratory status. 04/10- pt continues in isolation due to positive covid, no s/s of respiratory distress, afebrile, denies malaise, muscle aches, GI symptoms. We discussed starting palovix but pt declines as she states symptoms are mild. I spent minutes with the patient and/or on the patient floor today, greater than?50% of which was spent counseling/coordinating care. Reason for contiued inpatient stay Substantial Risk for: inability to function Time Spent With Patient Time: Total time managing care of this patient today ____ minutes.
[2022-04-10] MEDS: Divalproex Sodium 250 MG TABLET.DR PO (10:16)
[2022-04-10] MEDS: hydroCHLOROthiazide 25 MG TABLET PO (10:16)
[2022-04-10] MEDS: Loratadine 10 MG TABLET PO (10:16)
[2022-04-10] MEDS: Sertraline HCL 50 MG TABLET PO (10:17)
[2022-04-10] MEDS: amLODIPine Besylate 10 MG TABLET PO (10:17)
[2022-04-10] MEDS: carvediloL 12.5 MG TABLET PO (10:17)
[2022-04-10] MEDS: Atorvastatin Calcium 80 MG TABLET PO (10:17)
[2022-04-10] MEDS: Acetaminophen 325 MG TABLET 650 MG PO (11:15)
[2022-04-10 18:00] VITALS: BP 139/74; PULSE 57; RESP 17; TEMP 36.5; O2SAT 100
[2022-04-10] MEDS: Divalproex Sodium 500 MG TABLET.DR PO (21:25)
[2022-04-10] MEDS: Melatonin 3 MG TABLET 6 MG PO (21:26)
[2022-04-10] MEDS: QUEtiapine Fumarate 50 MG TABLET PO (21:26)
[2022-04-10] MEDS: Donepezil HCl 10 MG TABLET PO (21:26)
[2022-04-11] MEDS: Levothyroxine Sodium 50 MCG TABLET PO (06:46)
[2022-04-11] MEDS: Sertraline HCL 50 MG TABLET PO (10:12)
[2022-04-11] MEDS: amLODIPine Besylate 10 MG TABLET PO (10:12)
[2022-04-11] MEDS: Loratadine 10 MG TABLET PO (10:12)
[2022-04-11] MEDS: carvediloL 12.5 MG TABLET PO ×2 (10:12→21:01)
[2022-04-11] MEDS: hydroCHLOROthiazide 25 MG TABLET PO (10:12)
[2022-04-11] MEDS: Atorvastatin Calcium 80 MG TABLET PO (10:12)
[2022-04-11] MEDS: Divalproex Sodium 250 MG TABLET.DR PO (10:12)
--- NOTE | 2022-04-11 11:25 | HO.PSYCHPN ---
Subjective Subjective Date of Service: 04/11/22 Reason For Visit: depression, anxiety, alzheimers Subjective Notes: Conditional Voluntary Interim History: Pt positive for covid since 04/09. Pt continues to denies SOB, chills, muscle aches. No GI symptoms. No s/s of respiratory distress. She reports some congestion and head cold. O2 sats stable >97. Pt reports she slept well- this was confirmed by nursing. She denies SI/HI. No psychosis or delusions. Overall, pt reports she is doing well. Medication Compliance: Yes Side effects from medications: No Review of Systems Review of Systems General: No fevers, malaise, unintentional weight loss HEENT: No blurred vision or diplopia Cardiovascular: No chest pain, palpitations, or leg edema Respiratory: No shortness of breath, wheezing, cough GI: No abdominal pain, nausea, vomiting, diarrhea, constipation, melena, hematochezia : No dysuria, hematuria, increased urinary frequency, urgency MSK: No myalgia Neuro: No headaches, weakness, paresthesias Skin: No rashes or lesions Yes all other systems are reviewed and are negative and Unobtainable due to mental status Diagnostics Vital Signs (24Hr): Vital Signs - 24 hr 04/10/22 18:00 Temperature 97.7 F Pulse Rate 57 Respiratory Rate 17 Blood Pressure 139/74 Pulse Oximetry 100 Oxygen Delivery Method Room Air BMI result Body Mass Index 29.1 Labs Results: 02/28/22 07:59 03/05/22 07:44 Imaging Radiology Impressions: ITS Impressions Head CT 02/06/22 15:04 IMPRESSION: No acute intracranial hemorrhage or territorial infarction. Progressed moderate generalized parenchymal volume loss and mild to moderate chronic white matter microangiopathy. 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 Head CT 02/26/22 10:52 IMPRESSION: No acute intracranial hemorrhage or territorial infarction. Stable diffuse parenchymal volume loss and [id number] chronic white matter microangiopathy. Incompletely visualized moderate left maxillary sinus disease with chronic sclerotic wall thickening. 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 No evidence of acute territorial infarct. No intracranial mass effect or hydrocephalus. Medications Medications Current Medications Acetaminophen (Acetaminophen 325 Mg Tablet) 650 mg PO Q6H PRN PRN Reason: Headache/Pain Mild Scale (1-3) Last Admin: 04/10/22 11:15 Dose: 650 mg Al Hydroxide/Mg Hydroxide (Magnesium Hydrox/Alum Hydrox 30 Ml Oral.Susp) 30 ml PO Q6H PRN PRN Reason: Heartburn/Nausea Amlodipine Besylate (Amlodipine Besylate 10 Mg Tablet) 10 mg PO DAILY [facility]; Protocol Last Admin: 04/11/22 10:12 Dose: 10 mg Artificial Tears (Artificial Tears 15 Ml Drops) 1 drop EYE-BOTH Q4H PRN PRN Reason: dry eyes Last Admin: 03/12/22 21:03 Dose: 1 drop Atorvastatin Calcium (Atorvastatin Calcium 80 Mg Tablet) 80 mg PO DAILY [facility] Last Admin: 04/11/22 10:12 Dose: 80 mg Bacitracin (Bacitracin Oint 14 Gm Tube) 1 appl TOPICAL BID [facility]; Protocol Last Admin: 04/10/22 21:38 Dose: Not Given Carvedilol (Carvedilol 12.5 Mg Tablet) 12.5 mg PO BID [facility]; Protocol Last Admin: 04/11/22 10:12 Dose: 12.5 mg Divalproex Sodium (Divalproex Sodium 250 Mg Tablet.) 250 mg PO DAILY [facility] Last Admin: 04/11/22 10:12 Dose: 250 mg Divalproex Sodium (Divalproex Sodium 500 Mg Tablet.) 500 mg PO BEDTIME [facility] Last Admin: 04/10/22 21:25 Dose: 500 mg Donepezil HCl (Donepezil Hcl 10 Mg Tablet) 10 mg PO BEDTIME [facility] Last Admin: 04/10/22 21:26 Dose: 10 mg Guaifenesin/Dextromethorphan (Guaifenesin Dm 100/10/5 Ml 5 Ml Syrup) 10 ml PO Q4H PRN PRN Reason: cough Hydrochlorothiazide (Hydrochlorothiazide 25 Mg Tablet) 25 mg PO DAILY [facility]; Protocol Last Admin: 04/11/22 10:12 Dose: 25 mg Hydroxyzine HCl (Hydroxyzine Hcl 25 Mg Tablet) 25 mg PO Q6H PRN PRN Reason: Anxiety Last Admin: 03/27/22 20:27 Dose: 25 mg Levothyroxine Sodium (Levothyroxine Sodium 50 Mcg Tablet) 50 mcg PO DAILY@0600 [facility] Last Admin: 04/11/22 06:46 Dose: 50 mcg Loratadine (Loratadine 10 Mg Tablet) 10 mg PO DAILY [facility] Last Admin: 04/11/22 10:12 Dose: 10 mg Magnesium Hydroxide (Milk Of Magnesia 30 Ml Oral.Susp) 30 ml PO DAILY PRN PRN Reason: Constipation Melatonin (Melatonin 3 Mg Tablet) 6 mg PO BEDTIME [facility] Last Admin: 04/10/22 21:26 Dose: 6 mg Melatonin (Melatonin 3 Mg Tablet) 3 mg PO BEDTIME PRN PRN Reason: insomnia Last Admin: 03/29/22 20:21 Dose: 3 mg Nystatin (Nystatin Powder 15 Gm Bottle) 1 appl TOPICAL BID [facility]; Protocol Last Admin: 04/10/22 21:38 Dose: Not Given Polyethylene Glycol (Polyethylene Glycol 3350 17 Gm Powd.Pack) 17 gm PO DAILY PRN PRN Reason: constipation Quetiapine Fumarate (Quetiapine Fumarate 50 Mg Tablet) 50 mg PO BEDTIME [facility] Last Admin: 04/10/22 21:26 Dose: 50 mg Senna/Docusate Sodium (Sennosides/Docusate Sodium Tablet) 1 tab PO DAILY PRN PRN Reason: constipation Sertraline HCl (Sertraline Hcl 50 Mg Tablet) 50 mg PO DAILY [facility] Last Admin: 04/11/22 10:12 Dose: 50 mg Trazodone HCl (Trazodone Hcl 50 Mg Tablet) 50 mg PO BEDTIME PRN PRN Reason: Insomnia Last Admin: 03/08/22 20:26 Dose: 50 mg Allergies Allergies Allergy/AdvReac Type Severity Reaction Status Date / Time No Known Allergies Allergy Verified 02/05/22 21:09 Assessment & Plan Assessment & Plan (1) Dementia: Status: Acute Code(s): F03.90 - Unspecified dementia, unspecified severity, without behavioral disturbance, psychotic disturbance, mood disturbance, and anxiety Assessment and Plan: . (2) Bipolar disorder: Status: Acute Code(s): F31.9 - Bipolar disorder, unspecified Plan the patient is an elderly female with a past history of bipolar disorder, dementia Alzheimer's type for the last 6 months, admitted for recent exacerbation of psychosis and violent behavior.? Very poor historian unable to provide more information.? PLAN: 1. PT consult ordered 2.. Gather collateral information.? 3. Continue with regular medications.? 4. Discharge to assisted living facility Or fpc facility when ready 5. Increased Aricept to 10 mg p.o. q.h.s. on 02/15 6. Monitor BP 7. MRI and EEG ordered. We will follow the EEG results under was no seizure activity. 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 At this moment neurologically she is stable. 8. Continue recommendations of blood pressure medication as per hospitalist. 9. Waiting for placement. 04/05 continue tx. 04/06 continue tx. 04/08/22: Continue current plan. 04/09 continue tx/ add loratadine. Pt tested positive for covid today. No signs of respiratory distressed at this moment, no SOB,afebrile. Pt reports congestion. continue monitor respiratory status. 04/10- pt continues in isolation due to positive covid, no s/s of respiratory distress, afebrile, denies malaise, muscle aches, GI symptoms. We discussed starting palovix but pt declines as she states symptoms are mild. 04/11 continue current meds. I spent minutes with the patient and/or on the patient floor today, greater than?50% of which was spent counseling/coordinating care. Reason for contiued inpatient stay Substantial Risk for: inability to function Time Spent With Patient Time: Total time managing care of this patient today ____ minutes.
[2022-04-11 18:00] VITALS: BP 142/75; RESP 18; TEMP 36.6; O2SAT 96
[2022-04-11] MEDS: Donepezil HCl 10 MG TABLET PO (21:01)
[2022-04-11] MEDS: QUEtiapine Fumarate 50 MG TABLET PO (21:01)
[2022-04-11] MEDS: Divalproex Sodium 500 MG TABLET.DR PO (21:01)
[2022-04-11] MEDS: Melatonin 3 MG TABLET 6 MG PO (21:02)
[2022-04-11] MEDS: Bacitracin Oint 14 GM TUBE 1 APPL TOPICAL (21:06)
[2022-04-12] MEDS: Levothyroxine Sodium 50 MCG TABLET PO (05:15)
[2022-04-12 07:45] VITALS: BP 144/78; PULSE 78; RESP 16; TEMP 36.6; O2SAT 99
[2022-04-12] MEDS: carvediloL 12.5 MG TABLET PO ×2 (10:51→21:00)
[2022-04-12] MEDS: Atorvastatin Calcium 80 MG TABLET PO (10:51)
[2022-04-12] MEDS: hydroCHLOROthiazide 25 MG TABLET PO (10:51)
[2022-04-12] MEDS: Divalproex Sodium 250 MG TABLET.DR PO (10:52)
[2022-04-12] MEDS: amLODIPine Besylate 10 MG TABLET PO (10:52)
[2022-04-12] MEDS: Loratadine 10 MG TABLET PO (10:52)
[2022-04-12] MEDS: Sertraline HCL 50 MG TABLET PO (10:52)
[2022-04-12] MEDS: Bacitracin Oint 14 GM TUBE 1 APPL TOPICAL (10:55)
[2022-04-12] MEDS: Nystatin Powder 15 GM BOTTLE 1 APPL TOPICAL (11:15)
--- NOTE | 2022-04-12 12:20 | HO.PSYCHPN ---
Subjective Subjective Date of Service: 04/12/22 Reason For Visit: depression, anxiety, alzheimers Subjective Notes: Conditional Voluntary Interim History: Pt in isolation. She continues to denied SOB, afebrile. Less congestion. She denies SI/HI. She reports sleeping and eating well. No signs of respiratory distress. Pt encouraged to ambulate around her room. Per nursing, no behavioral concerns. Medication Compliance: Yes Side effects from medications: No Attending Groups: No Review of Systems Review of Systems General: No fevers, malaise, unintentional weight loss HEENT: No blurred vision or diplopia Cardiovascular: No chest pain, palpitations, or leg edema Respiratory: No shortness of breath, wheezing, cough GI: No abdominal pain, nausea, vomiting, diarrhea, constipation, melena, hematochezia : No dysuria, hematuria, increased urinary frequency, urgency MSK: No myalgia Neuro: No headaches, weakness, paresthesias Skin: No rashes or lesions Yes all other systems are reviewed and are negative and Unobtainable due to mental status Mental Status Exam Mental Status Exam Narrative: Patient Appearance: Well Grooomed and Appropriate Patient Orientation: Person and Situation Level of Consciousness: Awake and Appropriate Patient Behavior: Guarded and Cooperative Mood Description: Withdrawn Affect Description: Constricted Ability to Follow Directions: Good Speech Pattern: Clear Hallucinations: None Delusions: Not Present Thought Process: Distracted Thought Content: positive for Circumstantial Judgement: Fair Diagnostics Vital Signs (24Hr): Vital Signs - 24 hr 04/12/22 21:41 04/12/22 21:44 Temperature 97.6 F 97.6 F Pulse Rate 67 67 Respiratory Rate 18 16 Blood Pressure 148/80 H Pulse Oximetry 95 Oxygen Delivery Method Room Air BMI result Body Mass Index 29.1 Labs Results: 02/28/22 07:59 03/05/22 07:44 Imaging Radiology Impressions: ITS Impressions Head CT 02/06/22 15:04 IMPRESSION: No acute intracranial hemorrhage or territorial infarction. Progressed moderate generalized parenchymal volume loss and mild to moderate chronic white matter microangiopathy. 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 Head CT 02/26/22 10:52 IMPRESSION: No acute intracranial hemorrhage or territorial infarction. Stable diffuse parenchymal volume loss and [id number] chronic white matter microangiopathy. Incompletely visualized moderate left maxillary sinus disease with chronic sclerotic wall thickening. 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 No evidence of acute territorial infarct. No intracranial mass effect or hydrocephalus. Medications Medications Current Medications Acetaminophen (Acetaminophen 325 Mg Tablet) 650 mg PO Q6H PRN PRN Reason: Headache/Pain Mild Scale (1-3) Last Admin: 04/10/22 11:15 Dose: 650 mg Al Hydroxide/Mg Hydroxide (Magnesium Hydrox/Alum Hydrox 30 Ml Oral.Susp) 30 ml PO Q6H PRN PRN Reason: Heartburn/Nausea Amlodipine Besylate (Amlodipine Besylate 10 Mg Tablet) 10 mg PO DAILY [facility]; Protocol Last Admin: 04/12/22 10:52 Dose: 10 mg Artificial Tears (Artificial Tears 15 Ml Drops) 1 drop EYE-BOTH Q4H PRN PRN Reason: dry eyes Last Admin: 03/12/22 21:03 Dose: 1 drop Atorvastatin Calcium (Atorvastatin Calcium 80 Mg Tablet) 80 mg PO DAILY [facility] Last Admin: 04/12/22 10:51 Dose: 80 mg Bacitracin (Bacitracin Oint 14 Gm Tube) 1 appl TOPICAL BID [facility]; Protocol Last Admin: 04/12/22 22:11 Dose: Not Given Carvedilol (Carvedilol 12.5 Mg Tablet) 12.5 mg PO BID [facility]; Protocol Last Admin: 04/12/22 21:00 Dose: 12.5 mg Divalproex Sodium (Divalproex Sodium 250 Mg Tablet.) 250 mg PO DAILY [facility] Last Admin: 04/12/22 10:52 Dose: 250 mg Divalproex Sodium (Divalproex Sodium 500 Mg Tablet.) 500 mg PO BEDTIME [facility] Last Admin: 04/12/22 21:00 Dose: 500 mg Donepezil HCl (Donepezil Hcl 10 Mg Tablet) 10 mg PO BEDTIME [facility] Last Admin: 04/12/22 21:00 Dose: 10 mg Guaifenesin/Dextromethorphan (Guaifenesin Dm 100/10/5 Ml 5 Ml Syrup) 10 ml PO Q4H PRN PRN Reason: cough Hydrochlorothiazide (Hydrochlorothiazide 25 Mg Tablet) 25 mg PO DAILY [facility]; Protocol Last Admin: 04/12/22 10:51 Dose: 25 mg Hydroxyzine HCl (Hydroxyzine Hcl 25 Mg Tablet) 25 mg PO Q6H PRN PRN Reason: Anxiety Last Admin: 03/27/22 20:27 Dose: 25 mg Levothyroxine Sodium (Levothyroxine Sodium 50 Mcg Tablet) 50 mcg PO DAILY@0600 [facility] Last Admin: 04/13/22 06:24 Dose: 50 mcg Loratadine (Loratadine 10 Mg Tablet) 10 mg PO DAILY [facility] Last Admin: 04/12/22 10:52 Dose: 10 mg Magnesium Hydroxide (Milk Of Magnesia 30 Ml Oral.Susp) 30 ml PO DAILY PRN PRN Reason: Constipation Melatonin (Melatonin 3 Mg Tablet) 6 mg PO BEDTIME [facility] Last Admin: 04/12/22 21:01 Dose: 6 mg Melatonin (Melatonin 3 Mg Tablet) 3 mg PO BEDTIME PRN PRN Reason: insomnia Last Admin: 03/29/22 20:21 Dose: 3 mg Nystatin (Nystatin Powder 15 Gm Bottle) 1 appl TOPICAL BID [facility]; Protocol Last Admin: 04/12/22 22:12 Dose: Not Given Polyethylene Glycol (Polyethylene Glycol 3350 17 Gm Powd.Pack) 17 gm PO DAILY PRN PRN Reason: constipation Quetiapine Fumarate (Quetiapine Fumarate 50 Mg Tablet) 50 mg PO BEDTIME [facility] Last Admin: 04/12/22 21:00 Dose: 50 mg Senna/Docusate Sodium (Sennosides/Docusate Sodium Tablet) 1 tab PO DAILY PRN PRN Reason: constipation Sertraline HCl (Sertraline Hcl 50 Mg Tablet) 50 mg PO DAILY [facility] Last Admin: 04/12/22 10:52 Dose: 50 mg Trazodone HCl (Trazodone Hcl 50 Mg Tablet) 50 mg PO BEDTIME PRN PRN Reason: Insomnia Last Admin: 03/08/22 20:26 Dose: 50 mg Allergies Allergies Allergy/AdvReac Type Severity Reaction Status Date / Time No Known Allergies Allergy Verified 02/05/22 21:09 Assessment & Plan Assessment & Plan (1) Dementia: Status: Acute Code(s): F03.90 - Unspecified dementia, unspecified severity, without behavioral disturbance, psychotic disturbance, mood disturbance, and anxiety Assessment and Plan: . (2) Bipolar disorder: Status: Acute Code(s): F31.9 - Bipolar disorder, unspecified Plan the patient is an elderly female with a past history of bipolar disorder, dementia Alzheimer's type for the last 6 months, admitted for recent exacerbation of psychosis and violent behavior.? Very poor historian unable to provide more information.? PLAN: 1. PT consult ordered 2.. Gather collateral information.? 3. Continue with regular medications.? 4. Discharge to assisted living facility Or fdc facility when ready 5. Increased Aricept to 10 mg p.o. q.h.s. on 02/15 6. Monitor BP 7. MRI and EEG ordered. We will follow the EEG results under was no seizure activity. 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 At this moment neurologically she is stable. 8. Continue recommendations of blood pressure medication as per hospitalist. 9. Waiting for placement. 04/05 continue tx. 04/06 continue tx. 04/08/22: Continue current plan. 04/09 continue tx/ add loratadine. Pt tested positive for covid today. No signs of respiratory distressed at this moment, no SOB,afebrile. Pt reports congestion. continue monitor respiratory status. 04/10- pt continues in isolation due to positive covid, no s/s of respiratory distress, afebrile, denies malaise, muscle aches, GI symptoms. We discussed starting palovix but pt declines as she states symptoms are mild. 04/11 continue current meds. 04/12- continue current tx. Reason for contiued inpatient stay Substantial Risk for: inability to function Time Spent With Patient Time: Total time managing care of this patient today ____ minutes.
[2022-04-12] MEDS: QUEtiapine Fumarate 50 MG TABLET PO (21:00)
[2022-04-12] MEDS: Donepezil HCl 10 MG TABLET PO (21:00)
[2022-04-12] MEDS: Divalproex Sodium 500 MG TABLET.DR PO (21:00)
[2022-04-12] MEDS: Melatonin 3 MG TABLET 6 MG PO (21:01)
[2022-04-12 21:41] VITALS: BP 148/80; PULSE 67; RESP 18; TEMP 36.4; O2SAT 95
[2022-04-12 21:44] VITALS: PULSE 67; RESP 16; TEMP 36.4
[2022-04-13 06:00] VITALS: BP 151/77; PULSE 83; RESP 16; TEMP 36.1; O2SAT 96
[2022-04-13] MEDS: Levothyroxine Sodium 50 MCG TABLET PO (06:24)
[2022-04-13] MEDS: amLODIPine Besylate 10 MG TABLET PO (11:06)
[2022-04-13] MEDS: hydroCHLOROthiazide 25 MG TABLET PO (11:06)
[2022-04-13] MEDS: Loratadine 10 MG TABLET PO (11:07)
[2022-04-13] MEDS: Nystatin Powder 15 GM BOTTLE 1 APPL TOPICAL (11:07)
[2022-04-13] MEDS: Divalproex Sodium 250 MG TABLET.DR PO (11:07)
[2022-04-13] MEDS: Atorvastatin Calcium 80 MG TABLET PO (11:07)
[2022-04-13] MEDS: carvediloL 12.5 MG TABLET PO ×2 (11:07→21:22)
[2022-04-13] MEDS: Sertraline HCL 50 MG TABLET PO (11:07)
[2022-04-13] MEDS: Bacitracin Oint 14 GM TUBE 1 APPL TOPICAL (11:08)
--- NOTE | 2022-04-13 14:18 | HO.PSYCHPN ---
Subjective Subjective Date of Service: 04/13/22 Reason For Visit: depression, anxiety, alzheimers Subjective Notes: Conditional Voluntary Interim History: Pt in isolation due to covid. She continues to denied SOB, afebrile. Less congestion. She denies SI/HI. She reports sleeping and eating well. No signs of respiratory distress. She reports good appetite. She is trying to do some OT work sheets in her room, In good spirits despite covid and isolation. Pt encouraged to ambulate around her room. Per nursing, no behavioral concerns. Review of Systems Review of Systems General: No fevers, malaise, unintentional weight loss HEENT: No blurred vision or diplopia Cardiovascular: No chest pain, palpitations, or leg edema Respiratory: No shortness of breath, wheezing, cough GI: No abdominal pain, nausea, vomiting, diarrhea, constipation, melena, hematochezia : No dysuria, hematuria, increased urinary frequency, urgency MSK: No myalgia Neuro: No headaches, weakness, paresthesias Skin: No rashes or lesions Yes all other systems are reviewed and are negative and Unobtainable due to mental status Mental Status Exam Mental Status Exam Narrative: Patient Appearance: Well Grooomed and Appropriate Patient Orientation: Person and Situation Level of Consciousness: Awake and Appropriate Patient Behavior: Guarded and Cooperative Mood Description: Withdrawn Affect Description: Constricted Ability to Follow Directions: Good Speech Pattern: Clear Hallucinations: None Delusions: Not Present Thought Process: Distracted Thought Content: positive for Circumstantial Judgement: Fair Patient Appearance: Appropriate Patient Orientation: Person and Place Level of Consciousness: Alert Patient Behavior: Appropriate, Talkative, Cooperative and Good Eye Contact Mood Description: Appropriate Affect Description: Appropriate Patient Cognition Impaired: Yes Ability to Follow Directions: Good Speech Pattern: Spontaneous Speech Memory Description: Remote Impaired, Immediate Impaired, Episodic Impaired, Recent Impaired and Working Impaired Diagnostics Vital Signs (24Hr): Vital Signs - 24 hr 04/12/22 21:41 04/12/22 21:44 04/13/22 06:00 Temperature 97.6 F 97.6 F 96.9 F Pulse Rate 67 67 83 Respiratory Rate 18 16 16 Blood Pressure 148/80 H 151/77 H Pulse Oximetry 95 96 Oxygen Delivery Method Room Air Room Air BMI result Body Mass Index 29.1 Labs Results: 02/28/22 07:59 03/05/22 07:44 Imaging Radiology Impressions: ITS Impressions Head CT 02/06/22 15:04 IMPRESSION: No acute intracranial hemorrhage or territorial infarction. Progressed moderate generalized parenchymal volume loss and mild to moderate chronic white matter microangiopathy. 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 Head CT 02/26/22 10:52 IMPRESSION: No acute intracranial hemorrhage or territorial infarction. Stable diffuse parenchymal volume loss and [id number] chronic white matter microangiopathy. Incompletely visualized moderate left maxillary sinus disease with chronic sclerotic wall thickening. 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 No evidence of acute territorial infarct. No intracranial mass effect or hydrocephalus. Medications Medications Current Medications Acetaminophen (Acetaminophen 325 Mg Tablet) 650 mg PO Q6H PRN PRN Reason: Headache/Pain Mild Scale (1-3) Last Admin: 04/10/22 11:15 Dose: 650 mg Al Hydroxide/Mg Hydroxide (Magnesium Hydrox/Alum Hydrox 30 Ml Oral.Susp) 30 ml PO Q6H PRN PRN Reason: Heartburn/Nausea Amlodipine Besylate (Amlodipine Besylate 10 Mg Tablet) 10 mg PO DAILY [facility]; Protocol Last Admin: 04/13/22 11:06 Dose: 10 mg Artificial Tears (Artificial Tears 15 Ml Drops) 1 drop EYE-BOTH Q4H PRN PRN Reason: dry eyes Last Admin: 03/12/22 21:03 Dose: 1 drop Atorvastatin Calcium (Atorvastatin Calcium 80 Mg Tablet) 80 mg PO DAILY [facility] Last Admin: 04/13/22 11:07 Dose: 80 mg Bacitracin (Bacitracin Oint 14 Gm Tube) 1 appl TOPICAL BID [facility]; Protocol Last Admin: 04/13/22 11:08 Dose: 1 appl Carvedilol (Carvedilol 12.5 Mg Tablet) 12.5 mg PO BID [facility]; Protocol Last Admin: 04/13/22 11:07 Dose: 12.5 mg Divalproex Sodium (Divalproex Sodium 250 Mg Tablet.) 250 mg PO DAILY [facility] Last Admin: 04/13/22 11:07 Dose: 250 mg Divalproex Sodium (Divalproex Sodium 500 Mg Tablet.) 500 mg PO BEDTIME [facility] Last Admin: 04/12/22 21:00 Dose: 500 mg Donepezil HCl (Donepezil Hcl 10 Mg Tablet) 10 mg PO BEDTIME [facility] Last Admin: 04/12/22 21:00 Dose: 10 mg Guaifenesin/Dextromethorphan (Guaifenesin Dm 100/10/5 Ml 5 Ml Syrup) 10 ml PO Q4H PRN PRN Reason: cough Hydrochlorothiazide (Hydrochlorothiazide 25 Mg Tablet) 25 mg PO DAILY [facility]; Protocol Last Admin: 04/13/22 11:06 Dose: 25 mg Hydroxyzine HCl (Hydroxyzine Hcl 25 Mg Tablet) 25 mg PO Q6H PRN PRN Reason: Anxiety Last Admin: 03/27/22 20:27 Dose: 25 mg Levothyroxine Sodium (Levothyroxine Sodium 50 Mcg Tablet) 50 mcg PO DAILY@0600 [facility] Last Admin: 04/13/22 06:24 Dose: 50 mcg Loratadine (Loratadine 10 Mg Tablet) 10 mg PO DAILY [facility] Last Admin: 04/13/22 11:07 Dose: 10 mg Magnesium Hydroxide (Milk Of Magnesia 30 Ml Oral.Susp) 30 ml PO DAILY PRN PRN Reason: Constipation Melatonin (Melatonin 3 Mg Tablet) 6 mg PO BEDTIME [facility] Last Admin: 04/12/22 21:01 Dose: 6 mg Melatonin (Melatonin 3 Mg Tablet) 3 mg PO BEDTIME PRN PRN Reason: insomnia Last Admin: 03/29/22 20:21 Dose: 3 mg Nystatin (Nystatin Powder 15 Gm Bottle) 1 appl TOPICAL BID [facility]; Protocol Last Admin: 04/13/22 11:07 Dose: 1 appl Polyethylene Glycol (Polyethylene Glycol 3350 17 Gm Powd.Pack) 17 gm PO DAILY PRN PRN Reason: constipation Quetiapine Fumarate (Quetiapine Fumarate 50 Mg Tablet) 50 mg PO BEDTIME [facility] Last Admin: 04/12/22 21:00 Dose: 50 mg Senna/Docusate Sodium (Sennosides/Docusate Sodium Tablet) 1 tab PO DAILY PRN PRN Reason: constipation Sertraline HCl (Sertraline Hcl 50 Mg Tablet) 50 mg PO DAILY [facility] Last Admin: 04/13/22 11:07 Dose: 50 mg Trazodone HCl (Trazodone Hcl 50 Mg Tablet) 50 mg PO BEDTIME PRN PRN Reason: Insomnia Last Admin: 03/08/22 20:26 Dose: 50 mg Allergies Allergies Allergy/AdvReac Type Severity Reaction Status Date / Time No Known Allergies Allergy Verified 02/05/22 21:09 Assessment & Plan Assessment & Plan (1) Dementia: Status: Acute Code(s): F03.90 - Unspecified dementia, unspecified severity, without behavioral disturbance, psychotic disturbance, mood disturbance, and anxiety Assessment and Plan: . (2) Bipolar disorder: Status: Acute Code(s): F31.9 - Bipolar disorder, unspecified Plan the patient is an elderly female with a past history of bipolar disorder, dementia Alzheimer's type for the last 6 months, admitted for recent exacerbation of psychosis and violent behavior.? Very poor historian unable to provide more information.? PLAN: 1. PT consult ordered 2.. Gather collateral information.? 3. Continue with regular medications.? 4. Discharge to assisted living facility Or care home facility when ready 5. Increased Aricept to 10 mg p.o. q.h.s. on 02/15 6. Monitor BP 7. MRI and EEG ordered. We will follow the EEG results under was no seizure activity. 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 At this moment neurologically she is stable. 8. Continue recommendations of blood pressure medication as per hospitalist. 9. Waiting for placement. 04/05 continue tx. 04/06 continue tx. 04/08/22: Continue current plan. 04/09 continue tx/ add loratadine. Pt tested positive for covid today. No signs of respiratory distressed at this moment, no SOB,afebrile. Pt reports congestion. continue monitor respiratory status. 04/10- pt continues in isolation due to positive covid, no s/s of respiratory distress, afebrile, denies malaise, muscle aches, GI symptoms. We discussed starting palovix but pt declines as she states symptoms are mild. 04/11 continue current meds. 04/12- continue current tx. 04/13 continue tx. Reason for contiued inpatient stay Substantial Risk for: inability to function Time Spent With Patient Time: Total time managing care of this patient today ____ minutes.
[2022-04-13 18:00] VITALS: BP 170/79; PULSE 67; RESP 17; TEMP 36.6; O2SAT 95
[2022-04-13] MEDS: Acetaminophen 325 MG TABLET 650 MG PO (21:20)
[2022-04-13] MEDS: Donepezil HCl 10 MG TABLET PO (21:22)
[2022-04-13] MEDS: Divalproex Sodium 500 MG TABLET.DR PO (21:22)
[2022-04-13] MEDS: QUEtiapine Fumarate 50 MG TABLET PO (21:22)
[2022-04-13] MEDS: Melatonin 3 MG TABLET 6 MG PO (21:22)
[2022-04-14 06:00] VITALS: BP 150/78; PULSE 70; RESP 18; TEMP 36.7; O2SAT 96
[2022-04-14] MEDS: Levothyroxine Sodium 50 MCG TABLET PO (06:19)
[2022-04-14] MEDS: amLODIPine Besylate 10 MG TABLET PO (10:16)
[2022-04-14] MEDS: Atorvastatin Calcium 80 MG TABLET PO (10:17)
[2022-04-14] MEDS: Sertraline HCL 50 MG TABLET PO (10:17)
[2022-04-14] MEDS: carvediloL 12.5 MG TABLET PO ×2 (10:17→20:28)
[2022-04-14] MEDS: Divalproex Sodium 250 MG TABLET.DR PO (10:17)
[2022-04-14] MEDS: Loratadine 10 MG TABLET PO (10:17)
[2022-04-14] MEDS: hydroCHLOROthiazide 25 MG TABLET PO (10:17)
--- NOTE | 2022-04-14 16:07 | HO.PSYCHPN ---
Subjective Subjective Date of Service: 04/14/22 Reason For Visit: depression, anxiety, alzheimers Interim History: Discussed with team. No updates. Spoke with pt, says she is doing okay other than being cold, also says she has been a little sick, tested covid positive but says she doesnt think she had covid. Otherwise when asked how she is, she puts two thumbs up. Says sleep is good, appetite is good. Mental Status Exam Mental Status Exam Narrative: Patient Appearance: Well Grooomed and Appropriate Patient Orientation: Person and Situation Level of Consciousness: Awake and Appropriate Patient Behavior: Guarded and Cooperative Mood Description: Withdrawn Affect Description: Constricted Ability to Follow Directions: Good Speech Pattern: Clear Hallucinations: None Delusions: Not Present Thought Process: Distracted Thought Content: positive for Circumstantial Judgement: Fair Patient Appearance: Appropriate Patient Orientation: Person and Place Level of Consciousness: Alert Patient Behavior: Appropriate, Talkative, Cooperative and Good Eye Contact Mood Description: Appropriate Affect Description: Appropriate Patient Cognition Impaired: Yes Ability to Follow Directions: Good Speech Pattern: Spontaneous Speech Memory Description: Remote Impaired, Immediate Impaired, Episodic Impaired, Recent Impaired and Working Impaired Diagnostics Vital Signs (24Hr): Vital Signs - 24 hr 04/13/22 18:00 04/14/22 06:00 Temperature 97.8 F 98.0 F Pulse Rate 67 70 Respiratory Rate 17 18 Blood Pressure 170/79 H 150/78 H Pulse Oximetry 95 96 Oxygen Delivery Method Room Air BMI result Body Mass Index 29.1 Labs Results: 02/28/22 07:59 03/05/22 07:44 Imaging Radiology Impressions: ITS Impressions Head CT 02/06/22 15:04 IMPRESSION: No acute intracranial hemorrhage or territorial infarction. Progressed moderate generalized parenchymal volume loss and mild to moderate chronic white matter microangiopathy. 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 Head CT 02/26/22 10:52 IMPRESSION: No acute intracranial hemorrhage or territorial infarction. Stable diffuse parenchymal volume loss and [id number] chronic white matter microangiopathy. Incompletely visualized moderate left maxillary sinus disease with chronic sclerotic wall thickening. 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 No evidence of acute territorial infarct. No intracranial mass effect or hydrocephalus. Medications Medications Current Medications Acetaminophen (Acetaminophen 325 Mg Tablet) 650 mg PO Q6H PRN PRN Reason: Headache/Pain Mild Scale (1-3) Last Admin: 04/13/22 21:20 Dose: 650 mg Al Hydroxide/Mg Hydroxide (Magnesium Hydrox/Alum Hydrox 30 Ml Oral.Susp) 30 ml PO Q6H PRN PRN Reason: Heartburn/Nausea Amlodipine Besylate (Amlodipine Besylate 10 Mg Tablet) 10 mg PO DAILY [facility]; Protocol Last Admin: 04/14/22 10:16 Dose: 10 mg Artificial Tears (Artificial Tears 15 Ml Drops) 1 drop EYE-BOTH Q4H PRN PRN Reason: dry eyes Last Admin: 03/12/22 21:03 Dose: 1 drop Atorvastatin Calcium (Atorvastatin Calcium 80 Mg Tablet) 80 mg PO DAILY [facility] Last Admin: 04/14/22 10:17 Dose: 80 mg Bacitracin (Bacitracin Oint 14 Gm Tube) 1 appl TOPICAL BID [facility]; Protocol Last Admin: 04/14/22 11:50 Dose: Not Given Carvedilol (Carvedilol 12.5 Mg Tablet) 12.5 mg PO BID [facility]; Protocol Last Admin: 04/14/22 10:17 Dose: 12.5 mg Divalproex Sodium (Divalproex Sodium 250 Mg Tablet.) 250 mg PO DAILY [facility] Last Admin: 04/14/22 10:17 Dose: 250 mg Divalproex Sodium (Divalproex Sodium 500 Mg Tablet.) 500 mg PO BEDTIME [facility] Last Admin: 04/13/22 21:22 Dose: 500 mg Donepezil HCl (Donepezil Hcl 10 Mg Tablet) 10 mg PO BEDTIME [facility] Last Admin: 04/13/22 21:22 Dose: 10 mg Guaifenesin/Dextromethorphan (Guaifenesin Dm 100/10/5 Ml 5 Ml Syrup) 10 ml PO Q4H PRN PRN Reason: cough Hydrochlorothiazide (Hydrochlorothiazide 25 Mg Tablet) 25 mg PO DAILY [facility]; Protocol Last Admin: 04/14/22 10:17 Dose: 25 mg Hydroxyzine HCl (Hydroxyzine Hcl 25 Mg Tablet) 25 mg PO Q6H PRN PRN Reason: Anxiety Last Admin: 03/27/22 20:27 Dose: 25 mg Levothyroxine Sodium (Levothyroxine Sodium 50 Mcg Tablet) 50 mcg PO DAILY@0600 [facility] Last Admin: 04/14/22 06:19 Dose: 50 mcg Loratadine (Loratadine 10 Mg Tablet) 10 mg PO DAILY [facility] Last Admin: 04/14/22 10:17 Dose: 10 mg Magnesium Hydroxide (Milk Of Magnesia 30 Ml Oral.Susp) 30 ml PO DAILY PRN PRN Reason: Constipation Melatonin (Melatonin 3 Mg Tablet) 6 mg PO BEDTIME [facility] Last Admin: 04/13/22 21:22 Dose: 6 mg Melatonin (Melatonin 3 Mg Tablet) 3 mg PO BEDTIME PRN PRN Reason: insomnia Last Admin: 03/29/22 20:21 Dose: 3 mg Nystatin (Nystatin Powder 15 Gm Bottle) 1 appl TOPICAL BID [facility]; Protocol Last Admin: 04/14/22 11:50 Dose: Not Given Polyethylene Glycol (Polyethylene Glycol 3350 17 Gm Powd.Pack) 17 gm PO DAILY PRN PRN Reason: constipation Quetiapine Fumarate (Quetiapine Fumarate 50 Mg Tablet) 50 mg PO BEDTIME [facility] Last Admin: 04/13/22 21:22 Dose: 50 mg Senna/Docusate Sodium (Sennosides/Docusate Sodium Tablet) 1 tab PO DAILY PRN PRN Reason: constipation Sertraline HCl (Sertraline Hcl 50 Mg Tablet) 50 mg PO DAILY [facility] Last Admin: 04/14/22 10:17 Dose: 50 mg Trazodone HCl (Trazodone Hcl 50 Mg Tablet) 50 mg PO BEDTIME PRN PRN Reason: Insomnia Last Admin: 03/08/22 20:26 Dose: 50 mg Allergies Allergies Allergy/AdvReac Type Severity Reaction Status Date / Time No Known Allergies Allergy Verified 02/05/22 21:09 Assessment & Plan Assessment & Plan (1) Dementia: Status: Acute Code(s): F03.90 - Unspecified dementia, unspecified severity, without behavioral disturbance, psychotic disturbance, mood disturbance, and anxiety Assessment and Plan: . (2) Bipolar disorder: Status: Acute Code(s): F31.9 - Bipolar disorder, unspecified Plan the patient is an elderly female with a past history of bipolar disorder, dementia Alzheimer's type for the last 6 months, admitted for recent exacerbation of psychosis and violent behavior.? Very poor historian unable to provide more information.? PLAN: 1. PT consult ordered 2.. Gather collateral information.? 3. Continue with regular medications.? 4. Discharge to assisted living facility Or [facility] facility when ready 5. Increased Aricept to 10 mg p.o. q.h.s. on 02/15 6. Monitor BP 7. MRI and EEG ordered. We will follow the EEG results under was no seizure activity. 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 At this moment neurologically she is stable. 8. Continue recommendations of blood pressure medication as per hospitalist. 9. Waiting for placement. 04/05 continue tx. 04/06 continue tx. 04/08/22: Continue current plan. 04/09 continue tx/ add loratadine. Pt tested positive for covid today. No signs of respiratory distressed at this moment, no SOB,afebrile. Pt reports congestion. continue monitor respiratory status. 04/10- pt continues in isolation due to positive covid, no s/s of respiratory distress, afebrile, denies malaise, muscle aches, GI symptoms. We discussed starting palovix but pt declines as she states symptoms are mild. 04/11 continue current meds. 04/12- continue current tx. 04/13 continue tx. 04/14 continue tx Patient educated on: therapeutic strategies Reason for contiued inpatient stay Substantial Risk for: inability to function, rapid decompensation and med/psych decompensation Time Spent With Patient Time: Total time managing care of this patient today ____ minutes.
[2022-04-14 20:00] VITALS: BP 153/79; PULSE 64; RESP 20; TEMP 36; O2SAT 96
[2022-04-14] MEDS: Divalproex Sodium 500 MG TABLET.DR PO (20:28)
[2022-04-14] MEDS: Melatonin 3 MG TABLET 6 MG PO (20:29)
[2022-04-14] MEDS: QUEtiapine Fumarate 50 MG TABLET PO (20:29)
[2022-04-14] MEDS: Donepezil HCl 10 MG TABLET PO (21:30)
[2022-04-15 06:00] VITALS: BP 142/72; PULSE 73; RESP 12; TEMP 36.4
[2022-04-15] MEDS: Levothyroxine Sodium 50 MCG TABLET PO (06:13)
[2022-04-15] MEDS: Loratadine 10 MG TABLET PO (10:04)
[2022-04-15] MEDS: Atorvastatin Calcium 80 MG TABLET PO (10:04)
[2022-04-15] MEDS: Divalproex Sodium 250 MG TABLET.DR PO (10:04)
[2022-04-15] MEDS: amLODIPine Besylate 10 MG TABLET PO (10:04)
[2022-04-15] MEDS: Sertraline HCL 50 MG TABLET PO (10:04)
[2022-04-15] MEDS: carvediloL 12.5 MG TABLET PO ×2 (10:04→21:06)
[2022-04-15] MEDS: hydroCHLOROthiazide 25 MG TABLET PO (10:04)
[2022-04-15] MEDS: Bacitracin Oint 14 GM TUBE 1 APPL TOPICAL (11:33)
[2022-04-15] MEDS: Nystatin Powder 15 GM BOTTLE 1 APPL TOPICAL (11:34)
--- NOTE | 2022-04-15 13:30 | HO.PSYCHPN ---
Subjective Subjective Date of Service: 04/15/22 Reason For Visit: depression, anxiety, alzheimers Interim History: Discussed with team. Pt is still on covid precautions. Says she is feeling bored. But otherwise I feel okay. Mental Status Exam Mental Status Exam Narrative: Patient Appearance: Well Grooomed and Appropriate Patient Orientation: Person and Situation Level of Consciousness: Awake and Appropriate Patient Behavior: Guarded and Cooperative Mood Description: Withdrawn Affect Description: Constricted Ability to Follow Directions: Good Speech Pattern: Clear Hallucinations: None Delusions: Not Present Thought Process: Distracted Thought Content: positive for Circumstantial Judgement: Fair Patient Appearance: Appropriate Patient Orientation: Person and Place Level of Consciousness: Alert Patient Behavior: Appropriate, Talkative, Cooperative and Good Eye Contact Mood Description: Appropriate Affect Description: Appropriate Patient Cognition Impaired: Yes Ability to Follow Directions: Good Speech Pattern: Spontaneous Speech Memory Description: Remote Impaired, Immediate Impaired, Episodic Impaired, Recent Impaired and Working Impaired Diagnostics Vital Signs (24Hr): Vital Signs - 24 hr 04/14/22 20:00 04/15/22 06:00 Temperature 96.8 F 97.5 F Pulse Rate 64 73 Respiratory Rate 20 12 Blood Pressure 153/79 H 142/72 H Pulse Oximetry 96 Oxygen Delivery Method Room Air Room Air BMI result Body Mass Index 29.1 Labs Results: 02/28/22 07:59 03/05/22 07:44 Imaging Radiology Impressions: ITS Impressions Head CT 02/06/22 15:04 IMPRESSION: No acute intracranial hemorrhage or territorial infarction. Progressed moderate generalized parenchymal volume loss and mild to moderate chronic white matter microangiopathy. 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 Head CT 02/26/22 10:52 IMPRESSION: No acute intracranial hemorrhage or territorial infarction. Stable diffuse parenchymal volume loss and [id number] chronic white matter microangiopathy. Incompletely visualized moderate left maxillary sinus disease with chronic sclerotic wall thickening. 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 No evidence of acute territorial infarct. No intracranial mass effect or hydrocephalus. Medications Medications Current Medications Acetaminophen (Acetaminophen 325 Mg Tablet) 650 mg PO Q6H PRN PRN Reason: Headache/Pain Mild Scale (1-3) Last Admin: 04/13/22 21:20 Dose: 650 mg Al Hydroxide/Mg Hydroxide (Magnesium Hydrox/Alum Hydrox 30 Ml Oral.Susp) 30 ml PO Q6H PRN PRN Reason: Heartburn/Nausea Amlodipine Besylate (Amlodipine Besylate 10 Mg Tablet) 10 mg PO DAILY [facility]; Protocol Last Admin: 04/15/22 10:04 Dose: 10 mg Artificial Tears (Artificial Tears 15 Ml Drops) 1 drop EYE-BOTH Q4H PRN PRN Reason: dry eyes Last Admin: 03/12/22 21:03 Dose: 1 drop Atorvastatin Calcium (Atorvastatin Calcium 80 Mg Tablet) 80 mg PO DAILY [facility] Last Admin: 04/15/22 10:04 Dose: 80 mg Bacitracin (Bacitracin Oint 14 Gm Tube) 1 appl TOPICAL BID [facility]; Protocol Last Admin: 04/15/22 11:33 Dose: 1 appl Carvedilol (Carvedilol 12.5 Mg Tablet) 12.5 mg PO BID [facility]; Protocol Last Admin: 04/15/22 10:04 Dose: 12.5 mg Divalproex Sodium (Divalproex Sodium 250 Mg Tablet.Dr) 250 mg PO DAILY [facility] Last Admin: 04/15/22 10:04 Dose: 250 mg Divalproex Sodium (Divalproex Sodium 500 Mg Tablet.Dr) 500 mg PO BEDTIME [facility] Last Admin: 04/14/22 20:28 Dose: 500 mg Donepezil HCl (Donepezil Hcl 10 Mg Tablet) 10 mg PO BEDTIME [facility] Last Admin: 04/14/22 21:30 Dose: 10 mg Guaifenesin/Dextromethorphan (Guaifenesin Dm 100/10/5 Ml 5 Ml Syrup) 10 ml PO Q4H PRN PRN Reason: cough Hydrochlorothiazide (Hydrochlorothiazide 25 Mg Tablet) 25 mg PO DAILY [facility]; Protocol Last Admin: 04/15/22 10:04 Dose: 25 mg Hydroxyzine HCl (Hydroxyzine Hcl 25 Mg Tablet) 25 mg PO Q6H PRN PRN Reason: Anxiety Last Admin: 03/27/22 20:27 Dose: 25 mg Levothyroxine Sodium (Levothyroxine Sodium 50 Mcg Tablet) 50 mcg PO DAILY@0600 [facility] Last Admin: 04/15/22 06:13 Dose: 50 mcg Loratadine (Loratadine 10 Mg Tablet) 10 mg PO DAILY [facility] Last Admin: 04/15/22 10:04 Dose: 10 mg Magnesium Hydroxide (Milk Of Magnesia 30 Ml Oral.Susp) 30 ml PO DAILY PRN PRN Reason: Constipation Melatonin (Melatonin 3 Mg Tablet) 6 mg PO BEDTIME [facility] Last Admin: 04/14/22 20:29 Dose: 6 mg Melatonin (Melatonin 3 Mg Tablet) 3 mg PO BEDTIME PRN PRN Reason: insomnia Last Admin: 03/29/22 20:21 Dose: 3 mg Nystatin (Nystatin Powder 15 Gm Bottle) 1 appl TOPICAL BID [facility]; Protocol Last Admin: 04/15/22 11:34 Dose: 1 appl Polyethylene Glycol (Polyethylene Glycol 3350 17 Gm Powd.Pack) 17 gm PO DAILY PRN PRN Reason: constipation Quetiapine Fumarate (Quetiapine Fumarate 50 Mg Tablet) 50 mg PO BEDTIME [facility] Last Admin: 04/14/22 20:29 Dose: 50 mg Senna/Docusate Sodium (Sennosides/Docusate Sodium Tablet) 1 tab PO DAILY PRN PRN Reason: constipation Sertraline HCl (Sertraline Hcl 50 Mg Tablet) 50 mg PO DAILY [facility] Last Admin: 04/15/22 10:04 Dose: 50 mg Trazodone HCl (Trazodone Hcl 50 Mg Tablet) 50 mg PO BEDTIME PRN PRN Reason: Insomnia Last Admin: 03/08/22 20:26 Dose: 50 mg Allergies Allergies Allergy/AdvReac Type Severity Reaction Status Date / Time No Known Allergies Allergy Verified 02/05/22 21:09 Assessment & Plan Assessment & Plan (1) Dementia: Status: Acute Code(s): F03.90 - Unspecified dementia, unspecified severity, without behavioral disturbance, psychotic disturbance, mood disturbance, and anxiety Assessment and Plan: . (2) Bipolar disorder: Status: Acute Code(s): F31.9 - Bipolar disorder, unspecified Plan the patient is an elderly female with a past history of bipolar disorder, dementia Alzheimer's type for the last 6 months, admitted for recent exacerbation of psychosis and violent behavior.? Very poor historian unable to provide more information.? PLAN: 1. PT consult ordered 2.. Gather collateral information.? 3. Continue with regular medications.? 4. Discharge to assisted living facility Or shelter facility when ready 5. Increased Aricept to 10 mg p.o. q.h.s. on 02/15 6. Monitor BP 7. MRI and EEG ordered. We will follow the EEG results under was no seizure activity. 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 At this moment neurologically she is stable. 8. Continue recommendations of blood pressure medication as per hospitalist. 9. Waiting for placement. 04/05 continue tx. 04/06 continue tx. 04/08/22: Continue current plan. 04/09 continue tx/ add loratadine. Pt tested positive for covid today. No signs of respiratory distressed at this moment, no SOB,afebrile. Pt reports congestion. continue monitor respiratory status. 04/10- pt continues in isolation due to positive covid, no s/s of respiratory distress, afebrile, denies malaise, muscle aches, GI symptoms. We discussed starting palovix but pt declines as she states symptoms are mild. 04/11 continue current meds. 04/12- continue current tx. 04/13 continue tx. 04/14 continue tx 04/15 continue tx Patient educated on: therapeutic strategies Reason for contiued inpatient stay Substantial Risk for: inability to function, rapid decompensation and med/psych decompensation Time Spent With Patient Time: Total time managing care of this patient today ____ minutes.
[2022-04-15 18:00] VITALS: BP 140/75; PULSE 62; RESP 13; TEMP 36.4; O2SAT 97
[2022-04-15] MEDS: Donepezil HCl 10 MG TABLET PO (21:06)
[2022-04-15] MEDS: Melatonin 3 MG TABLET 6 MG PO (21:06)
[2022-04-15] MEDS: QUEtiapine Fumarate 50 MG TABLET PO (21:06)
[2022-04-15] MEDS: Divalproex Sodium 500 MG TABLET.DR PO (21:07)
[2022-04-15] MEDS: Acetaminophen 325 MG TABLET 650 MG PO (21:10)
[2022-04-16] MEDS: Levothyroxine Sodium 50 MCG TABLET PO (05:28)
[2022-04-16 07:30] VITALS: BP 125/54; PULSE 62; RESP 15; TEMP 36.4; O2SAT 96
[2022-04-16] MEDS: hydroCHLOROthiazide 25 MG TABLET PO (09:35)
[2022-04-16] MEDS: amLODIPine Besylate 10 MG TABLET PO (09:36)
[2022-04-16] MEDS: carvediloL 12.5 MG TABLET PO ×2 (09:36→22:10)
[2022-04-16] MEDS: Atorvastatin Calcium 80 MG TABLET PO (09:36)
[2022-04-16] MEDS: Loratadine 10 MG TABLET PO (09:36)
[2022-04-16] MEDS: Sertraline HCL 50 MG TABLET PO (09:36)
[2022-04-16] MEDS: Divalproex Sodium 250 MG TABLET.DR PO (09:36)
--- NOTE | 2022-04-16 15:18 | P.PNPSI_ITS ---
Subjective Subjective Date of Service: 04/16/22 Interim History: Diagnostics precautions x 10 days per team. Narrative: 04/15/22 18:00 04/16/22 07:30
--- NOTE | 2022-04-16 15:18 | HO.PSYCHPN ---
Subjective Subjective Date of Service: 04/16/22 Reason For Visit: depression, anxiety, alzheimers Interim History: Discussed with team. Pt says she is feeling pretty good, however she is very bored. Says sleep is always pretty good. No s/s of covid. Still on precautions x 10 days per team. Mental Status Exam Mental Status Exam Narrative: Patient Appearance: Well Grooomed and Appropriate Patient Orientation: Person and Situation Level of Consciousness: Awake and Appropriate Patient Behavior: Guarded and Cooperative Mood Description: Withdrawn Affect Description: Constricted Ability to Follow Directions: Good Speech Pattern: Clear Hallucinations: None Delusions: Not Present Thought Process: Distracted Thought Content: positive for Circumstantial Judgement: Fair Patient Appearance: Appropriate Patient Orientation: Person and Place Level of Consciousness: Alert Patient Behavior: Appropriate, Talkative, Cooperative and Good Eye Contact Mood Description: Appropriate Affect Description: Appropriate Patient Cognition Impaired: Yes Ability to Follow Directions: Good Speech Pattern: Spontaneous Speech Memory Description: Remote Impaired, Immediate Impaired, Episodic Impaired, Recent Impaired and Working Impaired Diagnostics Vital Signs (24Hr): Vital Signs - 24 hr 04/15/22 18:00 04/16/22 07:30 Temperature 97.5 F 97.6 F Pulse Rate 62 62 Respiratory Rate 13 15 Blood Pressure 140/75 H 125/54 L Pulse Oximetry 97 96 Oxygen Delivery Method Room Air Room Air BMI result Body Mass Index 29.1 Labs Results: 02/28/22 07:59 03/05/22 07:44 Imaging Radiology Impressions: ITS Impressions Head CT 02/06/22 15:04 IMPRESSION: No acute intracranial hemorrhage or territorial infarction. Progressed moderate generalized parenchymal volume loss and mild to moderate chronic white matter microangiopathy. 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 Head CT 02/26/22 10:52 IMPRESSION: No acute intracranial hemorrhage or territorial infarction. Stable diffuse parenchymal volume loss and [id number] chronic white matter microangiopathy. Incompletely visualized moderate left maxillary sinus disease with chronic sclerotic wall thickening. 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 No evidence of acute territorial infarct. No intracranial mass effect or hydrocephalus. Medications Medications Current Medications Acetaminophen (Acetaminophen 325 Mg Tablet) 650 mg PO Q6H PRN PRN Reason: Headache/Pain Mild Scale (1-3) Last Admin: 04/15/22 21:10 Dose: 650 mg Al Hydroxide/Mg Hydroxide (Magnesium Hydrox/Alum Hydrox 30 Ml Oral.Susp) 30 ml PO Q6H PRN PRN Reason: Heartburn/Nausea Amlodipine Besylate (Amlodipine Besylate 10 Mg Tablet) 10 mg PO DAILY [facility]; Protocol Last Admin: 04/16/22 09:36 Dose: 10 mg Artificial Tears (Artificial Tears 15 Ml Drops) 1 drop EYE-BOTH Q4H PRN PRN Reason: dry eyes Last Admin: 03/12/22 21:03 Dose: 1 drop Atorvastatin Calcium (Atorvastatin Calcium 80 Mg Tablet) 80 mg PO DAILY [facility] Last Admin: 04/16/22 09:36 Dose: 80 mg Bacitracin (Bacitracin Oint 14 Gm Tube) 1 appl TOPICAL BID [facility]; Protocol Last Admin: 04/15/22 21:09 Dose: Not Given Carvedilol (Carvedilol 12.5 Mg Tablet) 12.5 mg PO BID [facility]; Protocol Last Admin: 04/16/22 09:36 Dose: 12.5 mg Divalproex Sodium (Divalproex Sodium 250 Mg Tablet.Dr) 250 mg PO DAILY [facility] Last Admin: 04/16/22 09:36 Dose: 250 mg Divalproex Sodium (Divalproex Sodium 500 Mg Tablet.Dr) 500 mg PO BEDTIME [facility] Last Admin: 04/15/22 21:07 Dose: 500 mg Donepezil HCl (Donepezil Hcl 10 Mg Tablet) 10 mg PO BEDTIME [facility] Last Admin: 04/15/22 21:06 Dose: 10 mg Guaifenesin/Dextromethorphan (Guaifenesin Dm 100/10/5 Ml 5 Ml Syrup) 10 ml PO Q4H PRN PRN Reason: cough Hydrochlorothiazide (Hydrochlorothiazide 25 Mg Tablet) 25 mg PO DAILY [facility]; Protocol Last Admin: 04/16/22 09:35 Dose: 25 mg Hydroxyzine HCl (Hydroxyzine Hcl 25 Mg Tablet) 25 mg PO Q6H PRN PRN Reason: Anxiety Last Admin: 03/27/22 20:27 Dose: 25 mg Levothyroxine Sodium (Levothyroxine Sodium 50 Mcg Tablet) 50 mcg PO DAILY@0600 [facility] Last Admin: 04/16/22 05:28 Dose: 50 mcg Loratadine (Loratadine 10 Mg Tablet) 10 mg PO DAILY [facility] Last Admin: 04/16/22 09:36 Dose: 10 mg Magnesium Hydroxide (Milk Of Magnesia 30 Ml Oral.Susp) 30 ml PO DAILY PRN PRN Reason: Constipation Melatonin (Melatonin 3 Mg Tablet) 6 mg PO BEDTIME [facility] Last Admin: 04/15/22 21:06 Dose: 6 mg Melatonin (Melatonin 3 Mg Tablet) 3 mg PO BEDTIME PRN PRN Reason: insomnia Last Admin: 03/29/22 20:21 Dose: 3 mg Nystatin (Nystatin Powder 15 Gm Bottle) 1 appl TOPICAL BID [facility]; Protocol Last Admin: 04/15/22 21:09 Dose: Not Given Polyethylene Glycol (Polyethylene Glycol 3350 17 Gm Powd.Pack) 17 gm PO DAILY PRN PRN Reason: constipation Quetiapine Fumarate (Quetiapine Fumarate 50 Mg Tablet) 50 mg PO BEDTIME [facility] Last Admin: 04/15/22 21:06 Dose: 50 mg Senna/Docusate Sodium (Sennosides/Docusate Sodium Tablet) 1 tab PO DAILY PRN PRN Reason: constipation Sertraline HCl (Sertraline Hcl 50 Mg Tablet) 50 mg PO DAILY [facility] Last Admin: 04/16/22 09:36 Dose: 50 mg Trazodone HCl (Trazodone Hcl 50 Mg Tablet) 50 mg PO BEDTIME PRN PRN Reason: Insomnia Last Admin: 03/08/22 20:26 Dose: 50 mg Allergies Allergies Allergy/AdvReac Type Severity Reaction Status Date / Time No Known Allergies Allergy Verified 02/05/22 21:09 Assessment & Plan Assessment & Plan (1) Dementia: Status: Acute Code(s): F03.90 - Unspecified dementia, unspecified severity, without behavioral disturbance, psychotic disturbance, mood disturbance, and anxiety Assessment and Plan: . (2) Bipolar disorder: Status: Acute Code(s): F31.9 - Bipolar disorder, unspecified Plan the patient is an elderly female with a past history of bipolar disorder, dementia Alzheimer's type for the last 6 months, admitted for recent exacerbation of psychosis and violent behavior.? Very poor historian unable to provide more information.? PLAN: 1. PT consult ordered 2.. Gather collateral information.? 3. Continue with regular medications.? 4. Discharge to assisted living facility Or custodial facility when ready 5. Increased Aricept to 10 mg p.o. q.h.s. on 02/15 6. Monitor BP 7. MRI and EEG ordered. We will follow the EEG results under was no seizure activity. 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 At this moment neurologically she is stable. 8. Continue recommendations of blood pressure medication as per hospitalist. 9. Waiting for placement. 04/05 continue tx. 04/06 continue tx. 04/08/22: Continue current plan. 04/09 continue tx/ add loratadine. Pt tested positive for covid today. No signs of respiratory distressed at this moment, no SOB,afebrile. Pt reports congestion. continue monitor respiratory status. 04/10- pt continues in isolation due to positive covid, no s/s of respiratory distress, afebrile, denies malaise, muscle aches, GI symptoms. We discussed starting palovix but pt declines as she states symptoms are mild. 04/11 continue current meds. 04/12- continue current tx. 04/13 continue tx. 04/14 continue tx 04/15 continue tx 04/15 continue tx 04/16 continue tx Patient educated on: therapeutic strategies Reason for contiued inpatient stay Substantial Risk for: inability to function, rapid decompensation and med/psych decompensation Time Spent With Patient Time: Total time managing care of this patient today ____ minutes.
[2022-04-16 18:00] VITALS: BP 148/81; PULSE 70; RESP 15; TEMP 37.1; O2SAT 96
[2022-04-16] MEDS: Melatonin 3 MG TABLET 6 MG PO (22:10)
[2022-04-16] MEDS: Divalproex Sodium 500 MG TABLET.DR PO (22:10)
[2022-04-16] MEDS: QUEtiapine Fumarate 50 MG TABLET PO (22:10)
[2022-04-16] MEDS: Donepezil HCl 10 MG TABLET PO (22:11)
[2022-04-17] MEDS: Levothyroxine Sodium 50 MCG TABLET PO (05:29)
[2022-04-17 07:30] VITALS: BP 127/69; PULSE 61; RESP 15; TEMP 36.3; O2SAT 96
[2022-04-17 10:36] LABS: COVID-19 Test Positive (Negative); IDNOW Serial# BCCEAD1C
[2022-04-17] MEDS: Loratadine 10 MG TABLET PO (10:56)
[2022-04-17] MEDS: carvediloL 12.5 MG TABLET PO ×2 (10:56→21:33)
[2022-04-17] MEDS: Divalproex Sodium 250 MG TABLET.DR PO (10:56)
[2022-04-17] MEDS: Atorvastatin Calcium 80 MG TABLET PO (10:56)
[2022-04-17] MEDS: amLODIPine Besylate 10 MG TABLET PO (10:56)
[2022-04-17] MEDS: hydroCHLOROthiazide 25 MG TABLET PO (10:56)
[2022-04-17] MEDS: Sertraline HCL 50 MG TABLET PO (10:56)
--- NOTE | 2022-04-17 11:02 | HO.PSYCHPN ---
Subjective Subjective Date of Service: 04/17/22 Reason For Visit: depression, anxiety, alzheimers Subjective Notes: Conditional Voluntary Interim History: The nursing staff reported the patient has tested COVID positive a few days and she has being on isolation as per protocol. Her mood remains stable even though that she is facing these restrictions. Also she had been asymptomatic, with no fever. Today we did a COVID test and she tested positive. On interview, the patient denies new symptoms, waiting for placement. Mental Status Exam Mental Status Exam Patient Appearance: Well Grooomed and Appropriate Patient Orientation: Person and Situation Level of Consciousness: Awake and Appropriate Patient Behavior: Appropriate and Passive Mood Description: Constricted Affect Description: Constricted Patient Cognition Impaired: Yes Ability to Follow Directions: Good Speech Pattern: Clear Hallucinations: None Delusions: Not Present Thought Process: Linear Thought Content: positive for Circumstantial Judgement: Fair Diagnostics Vital Signs (24Hr): Vital Signs - 24 hr 04/16/22 18:00 Temperature 98.7 F Pulse Rate 70 Respiratory Rate 15 Blood Pressure 148/81 H Pulse Oximetry 96 Oxygen Delivery Method Room Air BMI result Body Mass Index 29.1 Labs Results: 02/28/22 07:59 03/05/22 07:44 Labs: Laboratory Results - last 48 hr 04/17/22 10:15 COVID-19 ([facility]) Positive A COVID-19 Clin Com See Note Imaging Radiology Impressions: ITS Impressions Head CT 02/06/22 15:04 IMPRESSION: No acute intracranial hemorrhage or territorial infarction. Progressed moderate generalized parenchymal volume loss and mild to moderate chronic white matter microangiopathy. 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 Head CT 02/26/22 10:52 IMPRESSION: No acute intracranial hemorrhage or territorial infarction. Stable diffuse parenchymal volume loss and [id number] chronic white matter microangiopathy. Incompletely visualized moderate left maxillary sinus disease with chronic sclerotic wall thickening. 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 No evidence of acute territorial infarct. No intracranial mass effect or hydrocephalus. Medications Medications Current Medications Acetaminophen (Acetaminophen 325 Mg Tablet) 650 mg PO Q6H PRN PRN Reason: Headache/Pain Mild Scale (1-3) Last Admin: 04/15/22 21:10 Dose: 650 mg Al Hydroxide/Mg Hydroxide (Magnesium Hydrox/Alum Hydrox 30 Ml Oral.Susp) 30 ml PO Q6H PRN PRN Reason: Heartburn/Nausea Amlodipine Besylate (Amlodipine Besylate 10 Mg Tablet) 10 mg PO DAILY [facility]; Protocol Last Admin: 04/17/22 10:56 Dose: 10 mg Artificial Tears (Artificial Tears 15 Ml Drops) 1 drop EYE-BOTH Q4H PRN PRN Reason: dry eyes Last Admin: 03/12/22 21:03 Dose: 1 drop Atorvastatin Calcium (Atorvastatin Calcium 80 Mg Tablet) 80 mg PO DAILY [facility] Last Admin: 04/17/22 10:56 Dose: 80 mg Bacitracin (Bacitracin Oint 14 Gm Tube) 1 appl TOPICAL BID [facility]; Protocol Last Admin: 04/16/22 22:13 Dose: Not Given Carvedilol (Carvedilol 12.5 Mg Tablet) 12.5 mg PO BID [facility]; Protocol Last Admin: 04/17/22 10:56 Dose: 12.5 mg Divalproex Sodium (Divalproex Sodium 250 Mg Tablet.Dr) 250 mg PO DAILY [facility] Last Admin: 04/17/22 10:56 Dose: 250 mg Divalproex Sodium (Divalproex Sodium 500 Mg Tablet.Dr) 500 mg PO BEDTIME [facility] Last Admin: 04/16/22 22:10 Dose: 500 mg Donepezil HCl (Donepezil Hcl 10 Mg Tablet) 10 mg PO BEDTIME [facility] Last Admin: 04/16/22 22:11 Dose: 10 mg Guaifenesin/Dextromethorphan (Guaifenesin Dm 100/10/5 Ml 5 Ml Syrup) 10 ml PO Q4H PRN PRN Reason: cough Hydrochlorothiazide (Hydrochlorothiazide 25 Mg Tablet) 25 mg PO DAILY [facility]; Protocol Last Admin: 04/17/22 10:56 Dose: 25 mg Hydroxyzine HCl (Hydroxyzine Hcl 25 Mg Tablet) 25 mg PO Q6H PRN PRN Reason: Anxiety Last Admin: 03/27/22 20:27 Dose: 25 mg Levothyroxine Sodium (Levothyroxine Sodium 50 Mcg Tablet) 50 mcg PO DAILY@0600 [facility] Last Admin: 04/17/22 05:29 Dose: 50 mcg Loratadine (Loratadine 10 Mg Tablet) 10 mg PO DAILY [facility] Last Admin: 04/17/22 10:56 Dose: 10 mg Magnesium Hydroxide (Milk Of Magnesia 30 Ml Oral.Susp) 30 ml PO DAILY PRN PRN Reason: Constipation Melatonin (Melatonin 3 Mg Tablet) 6 mg PO BEDTIME [facility] Last Admin: 04/16/22 22:10 Dose: 6 mg Melatonin (Melatonin 3 Mg Tablet) 3 mg PO BEDTIME PRN PRN Reason: insomnia Last Admin: 03/29/22 20:21 Dose: 3 mg Nystatin (Nystatin Powder 15 Gm Bottle) 1 appl TOPICAL BID [facility]; Protocol Last Admin: 04/16/22 22:12 Dose: Not Given Polyethylene Glycol (Polyethylene Glycol 3350 17 Gm Powd.Pack) 17 gm PO DAILY PRN PRN Reason: constipation Quetiapine Fumarate (Quetiapine Fumarate 50 Mg Tablet) 50 mg PO BEDTIME [facility] Last Admin: 04/16/22 22:10 Dose: 50 mg Senna/Docusate Sodium (Sennosides/Docusate Sodium Tablet) 1 tab PO DAILY PRN PRN Reason: constipation Sertraline HCl (Sertraline Hcl 50 Mg Tablet) 50 mg PO DAILY [facility] Last Admin: 04/17/22 10:56 Dose: 50 mg Trazodone HCl (Trazodone Hcl 50 Mg Tablet) 50 mg PO BEDTIME PRN PRN Reason: Insomnia Last Admin: 03/08/22 20:26 Dose: 50 mg Allergies Allergies Allergy/AdvReac Type Severity Reaction Status Date / Time No Known Allergies Allergy Verified 02/05/22 21:09 Assessment & Plan Assessment & Plan (1) Dementia: Status: Acute Code(s): F03.90 - Unspecified dementia, unspecified severity, without behavioral disturbance, psychotic disturbance, mood disturbance, and anxiety Assessment and Plan: . (2) Bipolar disorder: Status: Acute Code(s): F31.9 - Bipolar disorder, unspecified Plan the patient is an elderly female with a past history of bipolar disorder, dementia Alzheimer's type for the last 6 months, admitted for recent exacerbation of psychosis and violent behavior.? Very poor historian unable to provide more information.? PLAN: 1. PT consult ordered 2.. Gather collateral information.? 3. Continue with regular medications.? 4. Discharge to assisted living facility Or nursing home facility when ready 5. Increased Aricept to 10 mg p.o. q.h.s. on 02/15 6. Monitor BP 7. MRI and EEG ordered. We will follow the EEG results under was no seizure activity. 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 At this moment neurologically she is stable. 8. Continue recommendations of blood pressure medication as per hospitalist. 9. Waiting for placement. 10. Positive to COVID since 04/09, on COVID restrictions. Reason for contiued inpatient stay Substantial Risk for: inability to function, rapid decompensation and med/psych decompensation Time Spent With Patient Time: Total time managing care of this patient today _20__ minutes.
[2022-04-17 18:00] VITALS: BP 133/65; PULSE 72; RESP 18; TEMP 36.9; O2SAT 96
[2022-04-17] MEDS: Melatonin 3 MG TABLET 6 MG PO (21:33)
[2022-04-17] MEDS: Donepezil HCl 10 MG TABLET PO (21:34)
[2022-04-17] MEDS: QUEtiapine Fumarate 50 MG TABLET PO (21:34)
[2022-04-17] MEDS: Divalproex Sodium 500 MG TABLET.DR PO (21:34)
[2022-04-18] MEDS: Levothyroxine Sodium 50 MCG TABLET PO (05:59)
[2022-04-18 06:00] VITALS: BP 154/96; PULSE 68; RESP 17; TEMP 36; O2SAT 97
[2022-04-18] MEDS: hydroCHLOROthiazide 25 MG TABLET PO (10:46)
[2022-04-18] MEDS: carvediloL 12.5 MG TABLET PO ×2 (10:47→20:32)
[2022-04-18] MEDS: Divalproex Sodium 250 MG TABLET.DR PO (10:47)
[2022-04-18] MEDS: Atorvastatin Calcium 80 MG TABLET PO (10:47)
[2022-04-18] MEDS: Loratadine 10 MG TABLET PO (10:47)
[2022-04-18] MEDS: amLODIPine Besylate 10 MG TABLET PO (10:47)
[2022-04-18] MEDS: Sertraline HCL 50 MG TABLET PO (13:32)
[2022-04-18] MEDS: Nystatin Powder 15 GM BOTTLE 1 APPL TOPICAL ×2 (13:33→20:34)
[2022-04-18] MEDS: Bacitracin Oint 14 GM TUBE 1 APPL TOPICAL ×2 (13:34→20:31)
--- NOTE | 2022-04-18 14:31 | HO.PSYCHPN ---
Subjective Subjective Date of Service: 04/18/22 Reason For Visit: depression, anxiety, alzheimers Subjective Notes: Conditional Voluntary Interim History: The nursing staff reported the patient has been in good spirits even though that she had been isolated due to COVID 19. Tomorrow is going to be the 10th day since her diagnosis and probably we can take her out of COVID 19 precautions. On interview the patient denies new symptoms, waiting for placement. Mental Status Exam Mental Status Exam Patient Appearance: Well Grooomed Patient Orientation: Person and Situation Level of Consciousness: Awake and Appropriate Patient Behavior: Guarded and Passive Mood Description: Calm Affect Description: Constricted Patient Cognition Impaired: Yes Ability to Follow Directions: Good Speech Pattern: Clear Hallucinations: None Delusions: Not Present Thought Process: Linear Thought Content: positive for [place] and positive for Circumstantial Judgement: Fair Diagnostics Vital Signs (24Hr): Vital Signs - 24 hr 04/17/22 18:00 Temperature 98.4 F Pulse Rate 72 Respiratory Rate 18 Blood Pressure 133/65 Pulse Oximetry 96 Oxygen Delivery Method Room Air BMI result Body Mass Index 29.1 Labs Results: 02/28/22 07:59 03/05/22 07:44 Labs: Laboratory Results - last 48 hr 04/17/22 10:15 COVID-19 ([facility]) Positive A COVID-19 Clin Com See Note Imaging Radiology Impressions: ITS Impressions Head CT 02/06/22 15:04 IMPRESSION: No acute intracranial hemorrhage or territorial infarction. Progressed moderate generalized parenchymal volume loss and mild to moderate chronic white matter microangiopathy. 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 Head CT 02/26/22 10:52 IMPRESSION: No acute intracranial hemorrhage or territorial infarction. Stable diffuse parenchymal volume loss and [id number] chronic white matter microangiopathy. Incompletely visualized moderate left maxillary sinus disease with chronic sclerotic wall thickening. 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 No evidence of acute territorial infarct. No intracranial mass effect or hydrocephalus. Medications Medications Current Medications Acetaminophen (Acetaminophen 325 Mg Tablet) 650 mg PO Q6H PRN PRN Reason: Headache/Pain Mild Scale (1-3) Last Admin: 04/15/22 21:10 Dose: 650 mg Al Hydroxide/Mg Hydroxide (Magnesium Hydrox/Alum Hydrox 30 Ml Oral.Susp) 30 ml PO Q6H PRN PRN Reason: Heartburn/Nausea Amlodipine Besylate (Amlodipine Besylate 10 Mg Tablet) 10 mg PO DAILY [facility]; Protocol Last Admin: 04/18/22 10:47 Dose: 10 mg Artificial Tears (Artificial Tears 15 Ml Drops) 1 drop EYE-BOTH Q4H PRN PRN Reason: dry eyes Last Admin: 03/12/22 21:03 Dose: 1 drop Atorvastatin Calcium (Atorvastatin Calcium 80 Mg Tablet) 80 mg PO DAILY [facility] Last Admin: 04/18/22 10:47 Dose: 80 mg Bacitracin (Bacitracin Oint 14 Gm Tube) 1 appl TOPICAL BID [facility]; Protocol Last Admin: 04/18/22 13:34 Dose: 1 appl Carvedilol (Carvedilol 12.5 Mg Tablet) 12.5 mg PO BID [facility]; Protocol Last Admin: 04/18/22 10:47 Dose: 12.5 mg Divalproex Sodium (Divalproex Sodium 250 Mg Tablet.) 250 mg PO DAILY [facility] Last Admin: 04/18/22 10:47 Dose: 250 mg Divalproex Sodium (Divalproex Sodium 500 Mg Tablet.) 500 mg PO BEDTIME [facility] Last Admin: 04/17/22 21:34 Dose: 500 mg Donepezil HCl (Donepezil Hcl 10 Mg Tablet) 10 mg PO BEDTIME [facility] Last Admin: 04/17/22 21:34 Dose: 10 mg Guaifenesin/Dextromethorphan (Guaifenesin Dm 100/10/5 Ml 5 Ml Syrup) 10 ml PO Q4H PRN PRN Reason: cough Hydrochlorothiazide (Hydrochlorothiazide 25 Mg Tablet) 25 mg PO DAILY [facility]; Protocol Last Admin: 04/18/22 10:46 Dose: 25 mg Hydroxyzine HCl (Hydroxyzine Hcl 25 Mg Tablet) 25 mg PO Q6H PRN PRN Reason: Anxiety Last Admin: 03/27/22 20:27 Dose: 25 mg Levothyroxine Sodium (Levothyroxine Sodium 50 Mcg Tablet) 50 mcg PO DAILY@0600 [facility] Last Admin: 04/18/22 05:59 Dose: 50 mcg Loratadine (Loratadine 10 Mg Tablet) 10 mg PO DAILY [facility] Last Admin: 04/18/22 10:47 Dose: 10 mg Magnesium Hydroxide (Milk Of Magnesia 30 Ml Oral.Susp) 30 ml PO DAILY PRN PRN Reason: Constipation Melatonin (Melatonin 3 Mg Tablet) 6 mg PO BEDTIME [facility] Last Admin: 04/17/22 21:33 Dose: 6 mg Melatonin (Melatonin 3 Mg Tablet) 3 mg PO BEDTIME PRN PRN Reason: insomnia Last Admin: 03/29/22 20:21 Dose: 3 mg Nystatin (Nystatin Powder 15 Gm Bottle) 1 appl TOPICAL BID [facility]; Protocol Last Admin: 04/18/22 13:33 Dose: 1 appl Polyethylene Glycol (Polyethylene Glycol 3350 17 Gm Powd.Pack) 17 gm PO DAILY PRN PRN Reason: constipation Quetiapine Fumarate (Quetiapine Fumarate 50 Mg Tablet) 50 mg PO BEDTIME [facility] Last Admin: 04/17/22 21:34 Dose: 50 mg Senna/Docusate Sodium (Sennosides/Docusate Sodium Tablet) 1 tab PO DAILY PRN PRN Reason: constipation Sertraline HCl (Sertraline Hcl 50 Mg Tablet) 50 mg PO DAILY [facility] Last Admin: 04/18/22 13:32 Dose: 50 mg Trazodone HCl (Trazodone Hcl 50 Mg Tablet) 50 mg PO BEDTIME PRN PRN Reason: Insomnia Last Admin: 03/08/22 20:26 Dose: 50 mg Allergies Allergies Allergy/AdvReac Type Severity Reaction Status Date / Time No Known Allergies Allergy Verified 02/05/22 21:09 Assessment & Plan Assessment & Plan (1) Dementia: Status: Acute Code(s): F03.90 - Unspecified dementia, unspecified severity, without behavioral disturbance, psychotic disturbance, mood disturbance, and anxiety Assessment and Plan: . (2) Bipolar disorder: Status: Acute Code(s): F31.9 - Bipolar disorder, unspecified Plan the patient is an elderly female with a past history of bipolar disorder, dementia Alzheimer's type for the last 6 months, admitted for recent exacerbation of psychosis and violent behavior.? Very poor historian unable to provide more information.? PLAN: 1. PT consult ordered 2.. Gather collateral information.? 3. Continue with regular medications.? 4. Discharge to assisted living facility Or group home facility when ready 5. Increased Aricept to 10 mg p.o. q.h.s. on 02/15 6. Monitor BP 7. MRI and EEG ordered. We will follow the EEG results under was no seizure activity. 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 At this moment neurologically she is stable. 8. Continue recommendations of blood pressure medication as per hospitalist. 9. Waiting for placement. 10. Positive to COVID since 04/09, on COVID restrictions. Reason for contiued inpatient stay Substantial Risk for: inability to function, rapid decompensation and med/psych decompensation Time Spent With Patient Time: Total time managing care of this patient today _20___ minutes.
[2022-04-18 18:00] VITALS: BP 148/92; PULSE 70; RESP 16; TEMP 36.2; O2SAT 96
[2022-04-18] MEDS: Divalproex Sodium 500 MG TABLET.DR PO (20:33)
[2022-04-18] MEDS: Donepezil HCl 10 MG TABLET PO (20:33)
[2022-04-18] MEDS: Melatonin 3 MG TABLET 6 MG PO (20:33)
[2022-04-18] MEDS: Acetaminophen 325 MG TABLET 650 MG PO (20:34)
[2022-04-18] MEDS: QUEtiapine Fumarate 50 MG TABLET PO (20:34)
[2022-04-19 06:00] VITALS: BP 134/81; PULSE 82; RESP 18; TEMP 36.6; O2SAT 97
[2022-04-19] MEDS: Levothyroxine Sodium 50 MCG TABLET PO (06:36)
[2022-04-19] MEDS: Sertraline HCL 50 MG TABLET PO (08:50)
[2022-04-19] MEDS: hydroCHLOROthiazide 25 MG TABLET PO (08:50)
[2022-04-19] MEDS: Bacitracin Oint 14 GM TUBE 1 APPL TOPICAL ×2 (08:51→20:57)
[2022-04-19] MEDS: Divalproex Sodium 250 MG TABLET.DR PO (08:51)
[2022-04-19] MEDS: Atorvastatin Calcium 80 MG TABLET PO (08:51)
[2022-04-19] MEDS: carvediloL 12.5 MG TABLET PO ×2 (08:51→20:55)
[2022-04-19] MEDS: amLODIPine Besylate 10 MG TABLET PO (08:51)
[2022-04-19] MEDS: Nystatin Powder 15 GM BOTTLE 1 APPL TOPICAL ×2 (08:51→20:55)
[2022-04-19] MEDS: Loratadine 10 MG TABLET PO (08:51)
[2022-04-19 13:09] VITALS: BMI 29.8
--- NOTE | 2022-04-19 16:14 | P.PNPSI_ITS ---
Subjective Subjective Date of Service: 04/19/22 Reason For Visit: depression, anxiety, alzheimers Subjective Notes: Conditional Voluntary Interim History: The nursing staff reported the patient has been fully compliant with treatment she slept well last night. Today is day 10 since she was diagnosed with COVID so contact isolation was diminished. On interview the patient denies new symptoms pleasant and cooperative, waiting for placement. Mental Status Exam Mental Status Exam Patient Appearance: Well Grooomed and Appropriate Patient Orientation: Person and Situation Level of Consciousness: Awake and Appropriate Patient Behavior: Cooperative Mood Description: Withdrawn Affect Description: Constricted Patient Cognition Impaired: Yes Ability to Follow Directions: Good Speech Pattern: Clear Hallucinations: None Delusions: Not Present Thought Process: Distracted Thought Content: positive for Circumstantial Judgement: Fair Diagnostics Vital Signs (24Hr): Vital Signs - 24 hr 04/18/22 18:00 04/19/22 06:00 Temperature 97.2 F 97.9 F Pulse Rate 70 82 Respiratory Rate 16 18 Blood Pressure 148/92 H 134/81 Pulse Oximetry 96 97 Oxygen Delivery Method Room Air Room Air BMI result Body Mass Index 29.8 Labs Results: 02/28/22 07:59 03/05/22 07:44 Imaging Radiology Impressions: ITS Impressions Head CT 02/06/22 15:04 IMPRESSION: No acute intracranial hemorrhage or territorial infarction. Progressed moderate generalized parenchymal volume loss and mild to moderate chronic white matter microangiopathy. 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 Head CT 02/26/22 10:52 IMPRESSION: No acute intracranial hemorrhage or territorial infarction. Stable diffuse parenchymal volume loss and [id number] chronic white matter microangiopathy. Incompletely visualized moderate left maxillary sinus disease with chronic sclerotic wall thickening. 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 No evidence of acute territorial infarct. No intracranial mass effect or hydrocephalus. Medications Medications Current Medications Acetaminophen (Acetaminophen 325 Mg Tablet) 650 mg PO Q6H PRN PRN Reason: Headache/Pain Mild Scale (1-3) Last Admin: 04/18/22 20:34 Dose: 650 mg Al Hydroxide/Mg Hydroxide (Magnesium Hydrox/Alum Hydrox 30 Ml Oral.Susp) 30 ml PO Q6H PRN PRN Reason: Heartburn/Nausea Amlodipine Besylate (Amlodipine Besylate 10 Mg Tablet) 10 mg PO DAILY [facility]; P rotocol Last Admin: 04/19/22 08:51 Dose: 10 mg Artificial Tears (Artificial Tears 15 Ml Drops) 1 drop EYE-BOTH Q4H PRN PRN Reason: dry eyes Last Admin: 03/12/22 21:03 Dose: 1 drop Atorvastatin Calcium (Atorvastatin Calcium 80 Mg Tablet) 80 mg PO DAILY [facility] Last Admin: 04/19/22 08:51 Dose: 80 mg Bacitracin (Bacitracin Oint 14 Gm Tube) 1 appl TOPICAL BID [facility]; Protocol Last Admin: 04/19/22 08:51 Dose: 1 appl Carvedilol (Carvedilol 12.5 Mg Tablet) 12.5 mg PO BID [facility]; Protocol Last Admin: 04/19/22 08:51 Dose: 12.5 mg Divalproex Sodium (Divalproex Sodium 250 Mg Tablet.Dr) 250 mg PO DAILY [facility] Last Admin: 04/19/22 08:51 Dose: 250 mg Divalproex Sodium (Divalproex Sodium 500 Mg Tablet.Dr) 500 mg PO BEDTIME [facility] Last Admin: 04/18/22 20:33 Dose: 500 mg Donepezil HCl (Donepezil Hcl 10 Mg Tablet) 10 mg PO BEDTIME [facility] Last Admin: 04/18/22 20:33 Dose: 10 mg Guaifenesin/Dextromethorphan (Guaifenesin Dm 100/10/5 Ml 5 Ml Syrup) 10 ml PO Q4H PRN PRN Reason: cough Hydrochlorothiazide (Hydrochlorothiazide 25 Mg Tablet) 25 mg PO DAILY [facility]; Protocol Last Admin: 04/19/22 08:50 Dose: 25 mg Hydroxyzine HCl (Hydroxyzine Hcl 25 Mg Tablet) 25 mg PO Q6H PRN PRN Reason: Anxiety Last Admin: 03/27/22 20:27 Dose: 25 mg Levothyroxine Sodium (Levothyroxine Sodium 50 Mcg Tablet) 50 mcg PO DAILY@0600 [facility] Last Admin: 04/19/22 06:36 Dose: 50 mcg Loratadine (Loratadine 10 Mg Tablet) 10 mg PO DAILY [facility] Last Admin: 04/19/22 08:51 Dose: 10 mg Magnesium Hydroxide (Milk Of Magnesia 30 Ml Oral.Susp) 30 ml PO DAILY PRN PRN Reason: Constipation Melatonin (Melatonin 3 Mg Tablet) 6 mg PO BEDTIME [facility] Last Admin: 04/18/22 20:33 Dose: 6 mg Melatonin (Melatonin 3 Mg Tablet) 3 mg PO BEDTIME PRN PRN Reason: insomnia Last Admin: 03/29/22 20:21 Dose: 3 mg Nystatin (Nystatin Powder 15 Gm Bottle) 1 appl TOPICAL BID [facility]; Protocol Last Admin: 04/19/22 08:51 Dose: 1 appl Polyethylene Glycol (Polyethylene Glycol 3350 17 Gm Powd.Pack) 17 gm PO DAILY PRN PRN Reason: constipation Quetiapine Fumarate (Quetiapine Fumarate 50 Mg Tablet) 50 mg PO BEDTIME [facility] Last Admin: 04/18/22 20:34 Dose: 50 mg Senna/Docusate Sodium (Sennosides/Docusate Sodium Tablet) 1 tab PO DAILY PRN PRN Reason: constipation Sertraline HCl (Sertraline Hcl 50 Mg Tablet) 50 mg PO DAILY [facility] Last Admin: 04/19/22 08:50 Dose: 50 mg Trazodone HCl (Trazodone Hcl 50 Mg Tablet) 50 mg PO BEDTIME PRN PRN Reason: Insomnia Last Admin: 03/08/22 20:26 Dose: 50 mg Allergies Allergies Allergy/AdvReac Type Severity Reaction Status Date / Time No Known Allergies Allergy Verified 02/05/22 21:09 Assessment & Plan Assessment & Plan (1) Dementia: Status: Acute Code(s): F03.90 - Unspecified dementia, unspecified severity, without behavioral disturbance, psychotic disturbance, mood disturbance, and anxiety Assessment and Plan: . (2) Bipolar disorder: Status: Acute Code(s): F31.9 - Bipolar disorder, unspecified Plan the patient is an elderly female with a past history of bipolar disorder, dementia Alzheimer's type for the last 6 months, admitted for recent exacerbation of psychosis and violent behavior.? Very poor historian unable to provide more information.? PLAN: 1. PT consult ordered 2.. Gather collateral information.? 3. Continue with regular medications.? 4. Discharge to assisted living facility Or retirement facility when ready 5. Increased Aricept to 10 mg p.o. q.h.s. on 02/15 6. Monitor BP 7. MRI and EEG ordered. We will follow the EEG results under was no seizure activity. 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 At this moment neurologically she is stable. 8. Continue recommendations of blood pressure medication as per hospitalist. 9. Waiting for placement. 10. Positive to COVID since 04/09, COVID restrictions release today. Reason for contiued inpatient stay Substantial Risk for: inability to function, rapid decompensation and med/psych decompensation Time Spent With Patient Time: Total time managing care of this patient today _20___ minutes.
[2022-04-19 19:05] VITALS: BP 139/69; PULSE 58; RESP 18; TEMP 36.5; O2SAT 97
[2022-04-19] MEDS: Donepezil HCl 10 MG TABLET PO (20:48)
[2022-04-19] MEDS: Melatonin 3 MG TABLET 6 MG PO (20:49)
[2022-04-19] MEDS: Divalproex Sodium 500 MG TABLET.DR PO (20:49)
[2022-04-19 20:50] VITALS: PULSE 72
[2022-04-19] MEDS: QUEtiapine Fumarate 50 MG TABLET PO (20:50)
[2022-04-20 06:00] VITALS: BP 151/81; PULSE 67; RESP 17; TEMP 36.9; O2SAT 99
[2022-04-20] MEDS: Levothyroxine Sodium 50 MCG TABLET PO (06:03)
[2022-04-20] MEDS: hydroCHLOROthiazide 25 MG TABLET PO (09:07)
[2022-04-20] MEDS: Divalproex Sodium 250 MG TABLET.DR PO (09:07)
[2022-04-20] MEDS: Atorvastatin Calcium 80 MG TABLET PO (09:07)
[2022-04-20] MEDS: amLODIPine Besylate 10 MG TABLET PO (09:07)
[2022-04-20] MEDS: carvediloL 12.5 MG TABLET PO ×2 (09:07→20:15)
[2022-04-20] MEDS: Loratadine 10 MG TABLET PO (09:07)
[2022-04-20] MEDS: Sertraline HCL 50 MG TABLET PO (09:07)
[2022-04-20] MEDS: Bacitracin Oint 14 GM TUBE 1 APPL TOPICAL (09:09)
[2022-04-20] MEDS: Nystatin Powder 15 GM BOTTLE 1 APPL TOPICAL ×2 (09:10→20:18)
--- NOTE | 2022-04-20 15:24 | HO.PSYCHPN ---
Subjective Subjective Date of Service: 04/20/22 Reason For Visit: depression, anxiety, alzheimers Subjective Notes: Conditional Voluntary Interim History: The nursing staff reported the patient has been compliant of COVID precautions. No new symptoms. On interview the patient denies new symptoms, waiting for placement Mental Status Exam Mental Status Exam Patient Appearance: Well Grooomed Patient Orientation: Person and Situation Level of Consciousness: Awake and Appropriate Patient Behavior: Guarded and Passive Mood Description: Withdrawn Affect Description: Constricted Patient Cognition Impaired: Yes Ability to Follow Directions: Good Speech Pattern: Clear Hallucinations: None Delusions: Not Present Thought Process: Distracted Thought Content: positive for [place] and positive for Circumstantial Judgement: Fair Diagnostics Vital Signs (24Hr): Vital Signs - 24 hr 04/19/22 19:05 04/19/22 20:50 Temperature 97.7 F Pulse Rate 58 72 Respiratory Rate 18 Blood Pressure 139/69 Pulse Oximetry 97 Oxygen Delivery Method Room Air BMI result Body Mass Index 29.8 Labs Results: 02/28/22 07:59 03/05/22 07:44 Imaging Radiology Impressions: ITS Impressions Head CT 02/06/22 15:04 IMPRESSION: No acute intracranial hemorrhage or territorial infarction. Progressed moderate generalized parenchymal volume loss and mild to moderate chronic white matter microangiopathy. 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 Head CT 02/26/22 10:52 IMPRESSION: No acute intracranial hemorrhage or territorial infarction. Stable diffuse parenchymal volume loss and [id number] chronic white matter microangiopathy. Incompletely visualized moderate left maxillary sinus disease with chronic sclerotic wall thickening. 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 No evidence of acute territorial infarct. No intracranial mass effect or hydrocephalus. Medications Medications Current Medications Acetaminophen (Acetaminophen 325 Mg Tablet) 650 mg PO Q6H PRN PRN Reason: Headache/Pain Mild Scale (1-3) Last Admin: 04/18/22 20:34 Dose: 650 mg Al Hydroxide/Mg Hydroxide (Magnesium Hydrox/Alum Hydrox 30 Ml Oral.Susp) 30 ml PO Q6H PRN PRN Reason: Heartburn/Nausea Amlodipine Besylate (Amlodipine Besylate 10 Mg Tablet) 10 mg PO DAILY [facility]; Protocol Last Admin: 04/20/22 09:07 Dose: 10 mg Artificial Tears (Artificial Tears 15 Ml Drops) 1 drop EYE-BOTH Q4H PRN PRN Reason: dry eyes Last Admin: 03/12/22 21:03 Dose: 1 drop Atorvastatin Calcium (Atorvastatin Calcium 80 Mg Tablet) 80 mg PO DAILY [facility] Last Admin: 04/20/22 09:07 Dose: 80 mg Bacitracin (Bacitracin Oint 14 Gm Tube) 1 appl TOPICAL BID [facility]; Protocol Last Admin: 04/20/22 09:09 Dose: 1 appl Carvedilol (Carvedilol 12.5 Mg Tablet) 12.5 mg PO BID [facility]; Protocol Last Admin: 04/20/22 09:07 Dose: 12.5 mg Divalproex Sodium (Divalproex Sodium 250 Mg Tablet.) 250 mg PO DAILY [facility] Last Admin: 04/20/22 09:07 Dose: 250 mg Divalproex Sodium (Divalproex Sodium 500 Mg Tablet.) 500 mg PO BEDTIME [facility] Last Admin: 04/19/22 20:49 Dose: 500 mg Donepezil HCl (Donepezil Hcl 10 Mg Tablet) 10 mg PO BEDTIME [facility] Last Admin: 04/19/22 20:48 Dose: 10 mg Guaifenesin/Dextromethorphan (Guaifenesin Dm 100/10/5 Ml 5 Ml Syrup) 10 ml PO Q4H PRN PRN Reason: cough Hydrochlorothiazide (Hydrochlorothiazide 25 Mg Tablet) 25 mg PO DAILY [facility]; Protocol Last Admin: 04/20/22 09:07 Dose: 25 mg Hydroxyzine HCl (Hydroxyzine Hcl 25 Mg Tablet) 25 mg PO Q6H PRN PRN Reason: Anxiety Last Admin: 03/27/22 20:27 Dose: 25 mg Levothyroxine Sodium (Levothyroxine Sodium 50 Mcg Tablet) 50 mcg PO DAILY@0600 [facility] Last Admin: 04/20/22 06:03 Dose: 50 mcg Loratadine (Loratadine 10 Mg Tablet) 10 mg PO DAILY [facility] Last Admin: 04/20/22 09:07 Dose: 10 mg Magnesium Hydroxide (Milk Of Magnesia 30 Ml Oral.Susp) 30 ml PO DAILY PRN PRN Reason: Constipation Melatonin (Melatonin 3 Mg Tablet) 6 mg PO BEDTIME [facility] Last Admin: 04/19/22 20:49 Dose: 6 mg Melatonin (Melatonin 3 Mg Tablet) 3 mg PO BEDTIME PRN PRN Reason: insomnia Last Admin: 03/29/22 20:21 Dose: 3 mg Nystatin (Nystatin Powder 15 Gm Bottle) 1 appl TOPICAL BID [facility]; Protocol Last Admin: 04/20/22 09:10 Dose: 1 appl Polyethylene Glycol (Polyethylene Glycol 3350 17 Gm Powd.Pack) 17 gm PO DAILY PRN PRN Reason: constipation Quetiapine Fumarate (Quetiapine Fumarate 50 Mg Tablet) 50 mg PO BEDTIME [facility] Last Admin: 04/19/22 20:50 Dose: 50 mg Senna/Docusate Sodium (Sennosides/Docusate Sodium Tablet) 1 tab PO DAILY PRN PRN Reason: constipation Sertraline HCl (Sertraline Hcl 50 Mg Tablet) 50 mg PO DAILY [facility] Last Admin: 04/20/22 09:07 Dose: 50 mg Trazodone HCl (Trazodone Hcl 50 Mg Tablet) 50 mg PO BEDTIME PRN PRN Reason: Insomnia Last Admin: 03/08/22 20:26 Dose: 50 mg Allergies Allergies Allergy/AdvReac Type Severity Reaction Status Date / Time No Known Allergies Allergy Verified 02/05/22 21:09 Assessment & Plan Assessment & Plan (1) Dementia: Status: Acute Code(s): F03.90 - Unspecified dementia, unspecified severity, without behavioral disturbance, psychotic disturbance, mood disturbance, and anxiety Assessment and Plan: . (2) Bipolar disorder: Status: Acute Code(s): F31.9 - Bipolar disorder, unspecified Plan the patient is an elderly female with a past history of bipolar disorder, dementia Alzheimer's type for the last 6 months, admitted for recent exacerbation of psychosis and violent behavior.? Very poor historian unable to provide more information.? PLAN: 1. PT consult ordered 2.. Gather collateral information.? 3. Continue with regular medications.? 4. Discharge to assisted living facility Or penitentiary facility when ready 5. Increased Aricept to 10 mg p.o. q.h.s. on 02/15 6. Monitor BP 7. MRI and EEG ordered. We will follow the EEG results under was no seizure activity. 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 At this moment neurologically she is stable. 8. Continue recommendations of blood pressure medication as per hospitalist. 9. Waiting for placement. 10. Positive to COVID since 04/09, COVID restrictions release on 04/19. Reason for contiued inpatient stay Substantial Risk for: inability to function, rapid decompensation and med/psych decompensation Time Spent With Patient Time: Total time managing care of this patient today __20__ minutes.
[2022-04-20 18:00] VITALS: BP 146/76; PULSE 87; RESP 20; TEMP 36.2; O2SAT 95
[2022-04-20] MEDS: Divalproex Sodium 500 MG TABLET.DR PO (20:15)
[2022-04-20] MEDS: QUEtiapine Fumarate 50 MG TABLET PO (20:15)
[2022-04-20] MEDS: Melatonin 3 MG TABLET 6 MG PO (20:16)
[2022-04-20] MEDS: Donepezil HCl 10 MG TABLET PO (20:16)
[2022-04-21] MEDS: Levothyroxine Sodium 50 MCG TABLET PO (05:43)
[2022-04-21 06:00] VITALS: BP 138/99; PULSE 62; RESP 18; TEMP 36.4; O2SAT 96
[2022-04-21] MEDS: Divalproex Sodium 250 MG TABLET.DR PO (09:28)
[2022-04-21] MEDS: Sertraline HCL 50 MG TABLET PO (09:28)
[2022-04-21] MEDS: carvediloL 12.5 MG TABLET PO ×2 (09:28→20:44)
[2022-04-21] MEDS: hydroCHLOROthiazide 25 MG TABLET PO (09:28)
[2022-04-21] MEDS: Loratadine 10 MG TABLET PO (09:28)
[2022-04-21] MEDS: Atorvastatin Calcium 80 MG TABLET PO (09:28)
[2022-04-21] MEDS: amLODIPine Besylate 10 MG TABLET PO (09:28)
[2022-04-21] MEDS: Nystatin Powder 15 GM BOTTLE 1 APPL TOPICAL (14:20)
[2022-04-21 18:00] VITALS: BP 124/65; PULSE 67; RESP 18; TEMP 36.3; O2SAT 94
--- NOTE | 2022-04-21 20:37 | HO.PSYCHPN ---
Subjective Subjective Date of Service: 04/21/22 Reason For Visit: depression, anxiety, alzheimers Interim History: Team reports pt is at her baseline and awaits placement. Pt awake, resting in bed. She is easily engaged. Reports feeling well and comfortable. Discussed her memory of [place] today and was able to engage happily, laugh and enjoy her memories. She denies pain, denies medication SE and current medical concerns. Mental Status Exam Mental Status Exam Patient Appearance: Well Grooomed Patient Orientation: Person and Situation Level of Consciousness: Awake and Appropriate Patient Behavior: Guarded and Passive Mood Description: Withdrawn Affect Description: Constricted Patient Cognition Impaired: Yes Ability to Follow Directions: Good Speech Pattern: Clear Hallucinations: None Delusions: Not Present Thought Process: Distracted Thought Content: positive for [place] and positive for Circumstantial Judgement: Fair Diagnostics Vital Signs (24Hr): Vital Signs - 24 hr 04/21/22 06:00 Temperature 97.6 F Pulse Rate 62 Respiratory Rate 18 Blood Pressure 138/99 H Pulse Oximetry 96 Oxygen Delivery Method Room Air BMI result Body Mass Index 29.8 Labs Results: 02/28/22 07:59 03/05/22 07:44 Imaging Radiology Impressions: ITS Impressions Head CT 02/06/22 15:04 IMPRESSION: No acute intracranial hemorrhage or territorial infarction. Progressed moderate generalized parenchymal volume loss and mild to moderate chronic white matter microangiopathy. 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 Head CT 02/26/22 10:52 IMPRESSION: No acute intracranial hemorrhage or territorial infarction. Stable diffuse parenchymal volume loss and [id number] chronic white matter microangiopathy. Incompletely visualized moderate left maxillary sinus disease with chronic sclerotic wall thickening. 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 No evidence of acute territorial infarct. No intracranial mass effect or hydrocephalus. Medications Medications Current Medications Acetaminophen (Acetaminophen 325 Mg Tablet) 650 mg PO Q6H PRN PRN Reason: Headache/Pain Mild Scale (1-3) Last Admin: 04/18/22 20:34 Dose: 650 mg Al Hydroxide/Mg Hydroxide (Magnesium Hydrox/Alum Hydrox 30 Ml Oral.Susp) 30 ml PO Q6H PRN PRN Reason: Heartburn/Nausea Amlodipine Besylate (Amlodipine Besylate 10 Mg Tablet) 10 mg PO DAILY [facility]; Protocol Last Admin: 04/21/22 09:28 Dose: 10 mg Artificial Tears (Artificial Tears 15 Ml Drops) 1 drop EYE-BOTH Q4H PRN PRN Reason: dry eyes Last Admin: 03/12/22 21:03 Dose: 1 drop Atorvastatin Calcium (Atorvastatin Calcium 80 Mg Tablet) 80 mg PO DAILY [facility] Last Admin: 04/21/22 09:28 Dose: 80 mg Bacitracin (Bacitracin Oint 14 Gm Tube) 1 appl TOPICAL BID [facility]; Protocol Last Admin: 04/21/22 14:21 Dose: Not Given Carvedilol (Carvedilol 12.5 Mg Tablet) 12.5 mg PO BID [facility]; Protocol Last Admin: 04/21/22 09:28 Dose: 12.5 mg Divalproex Sodium (Divalproex Sodium 250 Mg Tablet.) 250 mg PO DAILY [facility] Last Admin: 04/21/22 09:28 Dose: 250 mg Divalproex Sodium (Divalproex Sodium 500 Mg Tablet.) 500 mg PO BEDTIME [facility] Last Admin: 04/20/22 20:15 Dose: 500 mg Donepezil HCl (Donepezil Hcl 10 Mg Tablet) 10 mg PO BEDTIME [facility] Last Admin: 04/20/22 20:16 Dose: 10 mg Guaifenesin/Dextromethorphan (Guaifenesin Dm 100/10/5 Ml 5 Ml Syrup) 10 ml PO Q4H PRN PRN Reason: cough Hydrochlorothiazide (Hydrochlorothiazide 25 Mg Tablet) 25 mg PO DAILY [facility]; Protocol Last Admin: 04/21/22 09:28 Dose: 25 mg Hydroxyzine HCl (Hydroxyzine Hcl 25 Mg Tablet) 25 mg PO Q6H PRN PRN Reason: Anxiety Last Admin: 03/27/22 20:27 Dose: 25 mg Levothyroxine Sodium (Levothyroxine Sodium 50 Mcg Tablet) 50 mcg PO DAILY@0600 [facility] Last Admin: 04/21/22 05:43 Dose: 50 mcg Loratadine (Loratadine 10 Mg Tablet) 10 mg PO DAILY [facility] Last Admin: 04/21/22 09:28 Dose: 10 mg Magnesium Hydroxide (Milk Of Magnesia 30 Ml Oral.Susp) 30 ml PO DAILY PRN PRN Reason: Constipation Melatonin (Melatonin 3 Mg Tablet) 6 mg PO BEDTIME [facility] Last Admin: 04/20/22 20:16 Dose: 6 mg Melatonin (Melatonin 3 Mg Tablet) 3 mg PO BEDTIME PRN PRN Reason: insomnia Last Admin: 03/29/22 20:21 Dose: 3 mg Nystatin (Nystatin Powder 15 Gm Bottle) 1 appl TOPICAL BID [facility]; Protocol Last Admin: 04/21/22 14:20 Dose: 1 appl Polyethylene Glycol (Polyethylene Glycol 3350 17 Gm Powd.Pack) 17 gm PO DAILY PRN PRN Reason: constipation Quetiapine Fumarate (Quetiapine Fumarate 50 Mg Tablet) 50 mg PO BEDTIME [facility] Last Admin: 04/20/22 20:15 Dose: 50 mg Senna/Docusate Sodium (Sennosides/Docusate Sodium Tablet) 1 tab PO DAILY PRN PRN Reason: constipation Sertraline HCl (Sertraline Hcl 50 Mg Tablet) 50 mg PO DAILY [facility] Last Admin: 04/21/22 09:28 Dose: 50 mg Trazodone HCl (Trazodone Hcl 50 Mg Tablet) 50 mg PO BEDTIME PRN PRN Reason: Insomnia Last Admin: 03/08/22 20:26 Dose: 50 mg Allergies Allergies Allergy/AdvReac Type Severity Reaction Status Date / Time No Known Allergies Allergy Verified 02/05/22 21:09 Assessment & Plan Assessment & Plan (1) Dementia: Status: Acute Code(s): F03.90 - Unspecified dementia, unspecified severity, without behavioral disturbance, psychotic disturbance, mood disturbance, and anxiety Assessment and Plan: . (2) Bipolar disorder: Status: Acute Code(s): F31.9 - Bipolar disorder, unspecified Plan the patient is an elderly female with a past history of bipolar disorder, dementia Alzheimer's type for the last 6 months, admitted for recent exacerbation of psychosis and violent behavior.? Very poor historian unable to provide more information.? PLAN: 1. PT consult ordered 2.. Gather collateral information.? 3. Continue with regular medications.? 4. Discharge to assisted living facility Or longterm facility when ready 5. Increased Aricept to 10 mg p.o. q.h.s. on 02/15 6. Monitor BP 7. MRI and EEG ordered. We will follow the EEG results under was no seizure activity. 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 At this moment neurologically she is stable. 8. Continue recommendations of blood pressure medication as per hospitalist. 9. Waiting for placement. 10. Positive to COVID since 04/09, COVID restrictions release on 04/19. 04/21/22- No recall of COVID +. Continue current regime Reports she is feeling well. Informed Consent: does not understand Reason for contiued inpatient stay Substantial Risk for: med/psych decompensation Time Spent With Patient Time: Total time managing care of this patient today __20__ minutes.
[2022-04-21] MEDS: Melatonin 3 MG TABLET 6 MG PO (20:41)
[2022-04-21] MEDS: Divalproex Sodium 500 MG TABLET.DR PO (20:42)
[2022-04-21] MEDS: Donepezil HCl 10 MG TABLET PO (20:44)
[2022-04-21] MEDS: QUEtiapine Fumarate 50 MG TABLET PO (20:45)
[2022-04-22 06:00] VITALS: BP 167/83; PULSE 71; RESP 16; TEMP 36.3; O2SAT 97
[2022-04-22] MEDS: Levothyroxine Sodium 50 MCG TABLET PO (06:06)
[2022-04-22] MEDS: Divalproex Sodium 250 MG TABLET.DR PO (10:09)
[2022-04-22] MEDS: hydroCHLOROthiazide 25 MG TABLET PO (10:09)
[2022-04-22] MEDS: amLODIPine Besylate 10 MG TABLET PO (10:09)
[2022-04-22] MEDS: Atorvastatin Calcium 80 MG TABLET PO (10:09)
[2022-04-22] MEDS: Sertraline HCL 50 MG TABLET PO (10:09)
[2022-04-22] MEDS: carvediloL 12.5 MG TABLET PO ×2 (10:09→20:34)
[2022-04-22] MEDS: Loratadine 10 MG TABLET PO (10:09)
--- NOTE | 2022-04-22 14:23 | P.PNPSI_ITS ---
Subjective Subjective Date of Service: 04/22/22 Reason For Visit: depression, anxiety, alzheimers Interim History: Happy New Year Participating in [employer] from television. Talked of going to [facility] before (where the televised mass was taking place). Reports she is feeling well. No current concerns or symptoms to address per pt. Reviewed with her team. Medication Compliance: Yes Side effects from medications: No Attending Groups: Yes Review of Systems Acute medical concerns: No Medical Review of Systems: unchanged Mental Status Exam Mental Status Exam Patient Appearance: Well Grooomed Patient Orientation: Person and Situation Level of Consciousness: Awake and Appropriate Patient Behavior: Guarded and Passive Mood Description: Withdrawn Affect Description: Constricted Patient Cognition Impaired: Yes Ability to Follow Directions: Good Speech Pattern: Clear Hallucinations: None Delusions: Not Present Thought Process: Distracted Thought Content: positive for [place] and positive for Circumstantial Judgement: Fair Diagnostics Vital Signs (24Hr): Vital Signs - 24 hr 04/21/22 18:00 04/22/22 06:00 Temperature 97.4 F 97.3 F Pulse Rate 67 71 Respiratory Rate 18 16 Blood Pressure 124/65 167/83 H Pulse Oximetry 94 97 Oxygen Delivery Method Room Air Room Air BMI result Body Mass Index 29.8 Labs Results: 02/28/22 07:59 03/05/22 07:44 Imaging Radiology Impressions: ITS Impressions Head CT 02/06/22 15:04 IMPRESSION: No acute intracranial hemorrhage or territorial infarction. Progressed moderate generalized parenchymal volume loss and mild to moderate chronic white matter microangiopathy. 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 Head CT 02/26/22 10:52 IMPRESSION: No acute intracranial hemorrhage or territorial infarction. Stable diffuse parenchymal volume loss and [id number] chronic white matter microangiopathy. Incompletely visualized moderate left maxillary sinus disease with chronic sclerotic wall thickening. 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 No evidence of acute territorial infarct. No intracranial mass effect or hydrocephalus. Medications Medications Current Medications Acetaminophen (Acetaminophen 325 Mg Tablet) 650 mg PO Q6H PRN PRN Reason: Headache/Pain Mild Scale (1-3) Last Admin: 04/18/22 20:34 Dose: 650 mg Al Hydroxide/Mg Hydroxide (Magnesium Hydrox/Alum Hydrox 30 Ml Oral.Susp) 30 ml PO Q6H PRN PRN Reason: Heartburn/Nausea Amlodipine Besylate (Amlodipine Besylate 10 Mg Tablet) 10 mg PO DAILY [facility]; Protocol Last Admin: 04/22/22 10:09 Dose: 10 mg Artificial Tears (Artificial Tears 15 Ml Drops) 1 drop EYE-BOTH Q4H PRN PRN Reason: dry eyes Last Admin: 03/12/22 21:03 Dose: 1 drop Atorvastatin Calcium (Atorvastatin Calcium 80 Mg Tablet) 80 mg PO DAILY [facility] Last Admin: 04/22/22 10:09 Dose: 80 mg Bacitracin (Bacitracin Oint 14 Gm Tube) 1 appl TOPICAL BID [facility]; Protocol Last Admin: 04/22/22 10:14 Dose: Not Given Carvedilol (Carvedilol 12.5 Mg Tablet) 12.5 mg PO BID [facility]; Protocol Last Admin: 04/22/22 10:09 Dose: 12.5 mg Divalproex Sodium (Divalproex Sodium 250 Mg Tablet.) 250 mg PO DAILY [facility] Last Admin: 04/22/22 10:09 Dose: 250 mg Divalproex Sodium (Divalproex Sodium 500 Mg Tablet.) 500 mg PO BEDTIME [facility] Last Admin: 04/21/22 20:42 Dose: 500 mg Donepezil HCl (Donepezil Hcl 10 Mg Tablet) 10 mg PO BEDTIME [facility] Last Admin: 04/21/22 20:44 Dose: 10 mg Guaifenesin/Dextromethorphan (Guaifenesin Dm 100/10/5 Ml 5 Ml Syrup) 10 ml PO Q4H PRN PRN Reason: cough Hydrochlorothiazide (Hydrochlorothiazide 25 Mg Tablet) 25 mg PO DAILY [facility]; Protocol Last Admin: 04/22/22 10:09 Dose: 25 mg Hydroxyzine HCl (Hydroxyzine Hcl 25 Mg Tablet) 25 mg PO Q6H PRN PRN Reason: Anxiety Last Admin: 03/27/22 20:27 Dose: 25 mg Levothyroxine Sodium (Levothyroxine Sodium 50 Mcg Tablet) 50 mcg PO DAILY@0600 [facility] Last Admin: 04/22/22 06:06 Dose: 50 mcg Loratadine (Loratadine 10 Mg Tablet) 10 mg PO DAILY [facility] Last Admin: 04/22/22 10:09 Dose: 10 mg Magnesium Hydroxide (Milk Of Magnesia 30 Ml Oral.Susp) 30 ml PO DAILY PRN PRN Reason: Constipation Melatonin (Melatonin 3 Mg Tablet) 6 mg PO BEDTIME [facility] Last Admin: 04/21/22 20:41 Dose: 6 mg Melatonin (Melatonin 3 Mg Tablet) 3 mg PO BEDTIME PRN PRN Reason: insomnia Last Admin: 03/29/22 20:21 Dose: 3 mg Nystatin (Nystatin Powder 15 Gm Bottle) 1 appl TOPICAL BID [facility]; Protocol Last Admin: 04/22/22 10:14 Dose: Not Given Polyethylene Glycol (Polyethylene Glycol 3350 17 Gm Powd.Pack) 17 gm PO DAILY PRN PRN Reason: constipation Quetiapine Fumarate (Quetiapine Fumarate 50 Mg Tablet) 50 mg PO BEDTIME [facility] Last Admin: 04/21/22 20:45 Dose: 50 mg Senna/Docusate Sodium (Sennosides/Docusate Sodium Tablet) 1 tab PO DAILY PRN PRN Reason: constipation Sertraline HCl (Sertraline Hcl 50 Mg Tablet) 50 mg PO DAILY [facility] Last Admin: 04/22/22 10:09 Dose: 50 mg Trazodone HCl (Trazodone Hcl 50 Mg Tablet) 50 mg PO BEDTIME PRN PRN Reason: Insomnia Last Admin: 03/08/22 20:26 Dose: 50 mg Allergies Allergies Allergy/AdvReac Type Severity Reaction Status Date / Time No Known Allergies Allergy Verified 02/05/22 21:09 Assessment & Plan Assessment & Plan (1) Dementia: Status: Acute Code(s): F03.90 - Unspecified dementia, unspecified severity, without behavioral disturbance, psychotic disturbance, mood disturbance, and anxiety Assessment and Plan: . (2) Bipolar disorder: Status: Acute Code(s): F31.9 - Bipolar disorder, unspecified Plan the patient is an elderly female with a past history of bipolar disorder, dementia Alzheimer's type for the last 6 months, admitted for recent exacerbation of psychosis and violent behavior.? Very poor historian unable to provide more information.? PLAN: 1. PT consult ordered 2.. Gather collateral information.? 3. Continue with regular medications.? 4. Discharge to assisted living facility Or intermediate facility when ready 5. Increased Aricept to 10 mg p.o. q.h.s. on 02/15 6. Monitor BP 7. MRI and EEG ordered. We will follow the EEG results under was no seizure activity. 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 At this moment neurologically she is stable. 8. Continue recommendations of blood pressure medication as per hospitalist. 9. Waiting for placement. 10. Positive to COVID since 04/09, COVID restrictions release on 04/19. 04/21/22- No recall of COVID +. Continue current regime Reports she is feeling well. 04/22/22: Continue current plan of care Reason for contiued inpatient stay Substantial Risk for: med/psych decompensation Time Spent With Patient Time: Total time managing care of this patient today __20__ minutes.
[2022-04-22] MEDS: Donepezil HCl 10 MG TABLET PO (20:34)
[2022-04-22] MEDS: Melatonin 3 MG TABLET 6 MG PO (20:34)
[2022-04-22] MEDS: QUEtiapine Fumarate 50 MG TABLET PO (20:34)
[2022-04-22] MEDS: Divalproex Sodium 500 MG TABLET.DR PO (20:34)
[2022-04-22 20:38] VITALS: BP 146/74; PULSE 68; RESP 18; TEMP 36.5; O2SAT 95
[2022-04-23] MEDS: Levothyroxine Sodium 50 MCG TABLET PO (06:36)
[2022-04-23 07:30] VITALS: BP 159/81; PULSE 65; RESP 18; TEMP 36.6; O2SAT 95
[2022-04-23] MEDS: Sertraline HCL 50 MG TABLET PO (09:10)
[2022-04-23] MEDS: carvediloL 12.5 MG TABLET PO ×2 (09:10→20:51)
[2022-04-23] MEDS: hydroCHLOROthiazide 25 MG TABLET PO (09:10)
[2022-04-23] MEDS: Loratadine 10 MG TABLET PO (09:10)
[2022-04-23] MEDS: amLODIPine Besylate 10 MG TABLET PO (09:10)
[2022-04-23] MEDS: Atorvastatin Calcium 80 MG TABLET PO (09:10)
[2022-04-23] MEDS: Divalproex Sodium 250 MG TABLET.DR PO (09:11)
[2022-04-23] MEDS: Nystatin Powder 15 GM BOTTLE 1 APPL TOPICAL (13:18)
--- NOTE | 2022-04-23 17:28 | P.PNPSI_ITS ---
Subjective Subjective Date of Service: 04/23/22 Reason For Visit: depression, anxiety, alzheimers Interim History: Discussed with team who report pt is at baseline. Working on activity sheets, interactive, active with peers and team. Denies any current symptoms of concern. Bacitracin discontinued as pt has completed this course of treatment. Medication Compliance: Yes Side effects from medications: No Attending Groups: Yes Review of Systems Acute medical concerns: No Medical Review of Systems: unchanged Mental Status Exam Mental Status Exam Patient Appearance: Well Grooomed Patient Orientation: Person and Situation Level of Consciousness: Awake and Appropriate Patient Behavior: Guarded and Passive Mood Description: Withdrawn Affect Description: Constricted Patient Cognition Impaired: Yes Ability to Follow Directions: Good Speech Pattern: Clear Hallucinations: None Delusions: Not Present Thought Process: Distracted Thought Content: positive for [place] and positive for Circumstantial Judgement: Fair Diagnostics Vital Signs (24Hr): Vital Signs - 24 hr 04/22/22 20:38 04/23/22 07:30 Temperature 97.7 F 97.8 F Pulse Rate 68 65 Respiratory Rate 18 18 Blood Pressure 146/74 H 159/81 H Pulse Oximetry 95 95 Oxygen Delivery Method Room Air Room Air BMI result Body Mass Index 29.8 Labs Results: 02/28/22 07:59 03/05/22 07:44 Imaging Radiology Impressions: ITS Impressions Head CT 02/06/22 15:04 IMPRESSION: No acute intracranial hemorrhage or territorial infarction. Progressed moderate generalized parenchymal volume loss and mild to moderate chronic white matter microangiopathy. 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 Head CT 02/26/22 10:52 IMPRESSION: No acute intracranial hemorrhage or territorial infarction. Stable diffuse parenchymal volume loss and [id number] chronic white matter microangiopathy. Incompletely visualized moderate left maxillary sinus disease with chronic sclerotic wall thickening. 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 No evidence of acute territorial infarct. No intracranial mass effect or hydrocephalus. Medications Medications Current Medications Acetaminophen (Acetaminophen 325 Mg Tablet) 650 mg PO Q6H PRN PRN Reason: Headache/Pain Mild Scale (1-3) Last Admin: 04/18/22 20:34 Dose: 650 mg Al Hydroxide/Mg Hydroxide (Magnesium Hydrox/Alum Hydrox 30 Ml Oral.Susp) 30 ml PO Q6H PRN PRN Reason: Heartburn/Nausea Amlodipine Besylate (Amlodipine Besylate 10 Mg Tablet) 10 mg PO DAILY [facility]; Protocol Last Admin: 04/23/22 09:10 Dose: 10 mg Artificial Tears (Artificial Tears 15 Ml Drops) 1 drop EYE-BOTH Q4H PRN PRN Reason: dry eyes Last Admin: 03/12/22 21:03 Dose: 1 drop Atorvastatin Calcium (Atorvastatin Calcium 80 Mg Tablet) 80 mg PO DAILY [facility] Last Admin: 04/23/22 09:10 Dose: 80 mg Bacitracin (Bacitracin Oint 14 Gm Tube) 1 appl TOPICAL BID [facility]; Protocol Last Admin: 04/23/22 13:17 Dose: Not Given Carvedilol (Carvedilol 12.5 Mg Tablet) 12.5 mg PO BID [facility]; Protocol Last Admin: 04/23/22 09:10 Dose: 12.5 mg Divalproex Sodium (Divalproex Sodium 250 Mg Tablet.) 250 mg PO DAILY [facility] Last Admin: 04/23/22 09:11 Dose: 250 mg Divalproex Sodium (Divalproex Sodium 500 Mg Tablet.) 500 mg PO BEDTIME [facility] Last Admin: 04/22/22 20:34 Dose: 500 mg Donepezil HCl (Donepezil Hcl 10 Mg Tablet) 10 mg PO BEDTIME [facility] Last Admin: 04/22/22 20:34 Dose: 10 mg Guaifenesin/Dextromethorphan (Guaifenesin Dm 100/10/5 Ml 5 Ml Syrup) 10 ml PO Q4H PRN PRN Reason: cough Hydrochlorothiazide (Hydrochlorothiazide 25 Mg Tablet) 25 mg PO DAILY [facility]; Protocol Last Admin: 04/23/22 09:10 Dose: 25 mg Hydroxyzine HCl (Hydroxyzine Hcl 25 Mg Tablet) 25 mg PO Q6H PRN PRN Reason: Anxiety Last Admin: 03/27/22 20:27 Dose: 25 mg Levothyroxine Sodium (Levothyroxine Sodium 50 Mcg Tablet) 50 mcg PO DAILY@0600 [facility] Last Admin: 04/23/22 06:36 Dose: 50 mcg Loratadine (Loratadine 10 Mg Tablet) 10 mg PO DAILY [facility] Last Admin: 04/23/22 09:10 Dose: 10 mg Magnesium Hydroxide (Milk Of Magnesia 30 Ml Oral.Susp) 30 ml PO DAILY PRN PRN Reason: Constipation Melatonin (Melatonin 3 Mg Tablet) 6 mg PO BEDTIME [facility] Last Admin: 04/22/22 20:34 Dose: 6 mg Melatonin (Melatonin 3 Mg Tablet) 3 mg PO BEDTIME PRN PRN Reason: insomnia Last Admin: 03/29/22 20:21 Dose: 3 mg Nystatin (Nystatin Powder 15 Gm Bottle) 1 appl TOPICAL BID [facility]; Protocol Last Admin: 04/23/22 13:18 Dose: 1 appl Polyethylene Glycol (Polyethylene Glycol 3350 17 Gm Powd.Pack) 17 gm PO DAILY PRN PRN Reason: constipation Quetiapine Fumarate (Quetiapine Fumarate 50 Mg Tablet) 50 mg PO BEDTIME [facility] Last Admin: 04/22/22 20:34 Dose: 50 mg Senna/Docusate Sodium (Sennosides/Docusate Sodium Tablet) 1 tab PO DAILY PRN PRN Reason: constipation Sertraline HCl (Sertraline Hcl 50 Mg Tablet) 50 mg PO DAILY [facility] Last Admin: 04/23/22 09:10 Dose: 50 mg Trazodone HCl (Trazodone Hcl 50 Mg Tablet) 50 mg PO BEDTIME PRN PRN Reason: Insomnia Last Admin: 03/08/22 20:26 Dose: 50 mg Allergies Allergies Allergy/AdvReac Type Severity Reaction Status Date / Time No Known Allergies Allergy Verified 02/05/22 21:09 Assessment & Plan Assessment & Plan (1) Dementia: Status: Acute Code(s): F03.90 - Unspecified dementia, unspecified severity, without behavioral disturbance, psychotic disturbance, mood disturbance, and anxiety Assessment and Plan: . (2) Bipolar disorder: Status: Acute Code(s): F31.9 - Bipolar disorder, unspecified Plan the patient is an elderly female with a past history of bipolar disorder, dementia Alzheimer's type for the last 6 months, admitted for recent exacerbation of psychosis and violent behavior.? Very poor historian unable to provide more information.? PLAN: 1. PT consult ordered 2.. Gather collateral information.? 3. Continue with regular medications.? 4. Discharge to assisted living facility Or senior living facility when ready 5. Increased Aricept to 10 mg p.o. q.h.s. on 02/15 6. Monitor BP 7. MRI and EEG ordered. We will follow the EEG results under was no seizure activity. 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 At this moment neurologically she is stable. 8. Continue recommendations of blood pressure medication as per hospitalist. 9. Waiting for placement. 10. Positive to COVID since 04/09, COVID restrictions release on 04/19. 04/21/22- No recall of COVID +. Continue current regime Reports she is feeling well. 04/22/22: Continue current plan of care 04/23/22: Continue current plan of care Reason for contiued inpatient stay Substantial Risk for: med/psych decompensation Time Spent With Patient Time: Total time managing care of this patient today _15___ minutes.
[2022-04-23 18:00] VITALS: BP 144/69; PULSE 95; RESP 18; TEMP 36.7; O2SAT 95
[2022-04-23] MEDS: Divalproex Sodium 500 MG TABLET.DR PO (20:51)
[2022-04-23] MEDS: Melatonin 3 MG TABLET 6 MG PO (20:52)
[2022-04-23] MEDS: QUEtiapine Fumarate 50 MG TABLET PO (20:52)
[2022-04-23] MEDS: Donepezil HCl 10 MG TABLET PO (20:52)
[2022-04-24] MEDS: Levothyroxine Sodium 50 MCG TABLET PO (06:04)
[2022-04-24 08:20] VITALS: BP 151/84; PULSE 67; RESP 16; TEMP 36.3; O2SAT 97
[2022-04-24] MEDS: hydroCHLOROthiazide 25 MG TABLET PO (08:23)
[2022-04-24] MEDS: carvediloL 12.5 MG TABLET PO ×2 (08:23→21:12)
[2022-04-24] MEDS: Atorvastatin Calcium 80 MG TABLET PO (08:23)
[2022-04-24] MEDS: Loratadine 10 MG TABLET PO (08:24)
[2022-04-24] MEDS: amLODIPine Besylate 10 MG TABLET PO (08:24)
[2022-04-24] MEDS: Divalproex Sodium 250 MG TABLET.DR PO (08:24)
[2022-04-24] MEDS: Sertraline HCL 50 MG TABLET PO (08:24)
[2022-04-24] MEDS: Nystatin Powder 15 GM BOTTLE 1 APPL TOPICAL (08:25)
--- NOTE | 2022-04-24 15:14 | P.PNPSI_ITS ---
Subjective Subjective Date of Service: 04/24/22 Reason For Visit: depression, anxiety, alzheimers Subjective Notes: Conditional Voluntary Interim History: The nursing staff reported the patient had been compliant with treatment, no side effects, participating in groups and activities. On interview the patient denies new symptoms, waiting for placement. Mental Status Exam Mental Status Exam Patient Appearance: Well Grooomed and Appropriate Patient Orientation: Person and Situation Level of Consciousness: Awake and Appropriate Patient Behavior: Cooperative Mood Description: Calm Affect Description: Constricted Patient Cognition Impaired: Yes Ability to Follow Directions: Good Speech Pattern: Clear Hallucinations: None Delusions: Not Present Thought Process: Distracted Thought Content: positive for Circumstantial Judgement: Fair Diagnostics Vital Signs (24Hr): Vital Signs - 24 hr 04/23/22 18:00 04/24/22 08:20 Temperature 98.1 F 97.3 F Pulse Rate 95 67 Respiratory Rate 18 16 Blood Pressure 144/69 H 151/84 H Pulse Oximetry 95 97 Oxygen Delivery Method Room Air Room Air BMI result Body Mass Index 29.8 Labs Results: 02/28/22 07:59 03/05/22 07:44 Imaging Radiology Impressions: ITS Impressions Head CT 02/06/22 15:04 IMPRESSION: No acute intracranial hemorrhage or territorial infarction. Progressed moderate generalized parenchymal volume loss and mild to moderate chronic white matter microangiopathy. 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 Head CT 02/26/22 10:52 IMPRESSION: No acute intracranial hemorrhage or territorial infarction. Stable diffuse parenchymal volume loss and [id number] chronic white matter microangiopathy. Incompletely visualized moderate left maxillary sinus disease with chronic sclerotic wall thickening. 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 No evidence of acute territorial infarct. No intracranial mass effect or hydrocephalus. Medications Medications Current Medications Acetaminophen (Acetaminophen 325 Mg Tablet) 650 mg PO Q6H PRN PRN Reason: Headache/Pain Mild Scale (1-3) Last Admin: 04/18/22 20:34 Dose: 650 mg Al Hydroxide/Mg Hydroxide (Magnesium Hydrox/Alum Hydrox 30 Ml Oral.Susp) 30 ml PO Q6H PRN PRN Reason: Heartburn/Nausea Amlodipine Besylate (Amlodipine Besylate 10 Mg Tablet) 10 mg PO DAILY [facility]; Protocol Last Admin: 04/24/22 08:24 Dose: 10 mg Artificial Tears (Artificial Tears 15 Ml Drops) 1 drop EYE-BOTH Q4H PRN PRN Reason: dry eyes Last Admin: 03/12/22 21:03 Dose: 1 drop Atorvastatin Calcium (Atorvastatin Calcium 80 Mg Tablet) 80 mg PO DAILY [facility] Last Admin: 04/24/22 08:23 Dose: 80 mg Carvedilol (Carvedilol 12.5 Mg Tablet) 12.5 mg PO BID [facility]; Protocol Last Admin: 04/24/22 08:23 Dose: 12.5 mg Divalproex Sodium (Divalproex Sodium 250 Mg Tablet.) 250 mg PO DAILY [facility] Last Admin: 04/24/22 08:24 Dose: 250 mg Divalproex Sodium (Divalproex Sodium 500 Mg Tablet.) 500 mg PO BEDTIME [facility] Last Admin: 04/23/22 20:51 Dose: 500 mg Donepezil HCl (Donepezil Hcl 10 Mg Tablet) 10 mg PO BEDTIME [facility] Last Admin: 04/23/22 20:52 Dose: 10 mg Guaifenesin/Dextromethorphan (Guaifenesin Dm 100/10/5 Ml 5 Ml Syrup) 10 ml PO Q4H PRN PRN Reason: cough Hydrochlorothiazide (Hydrochlorothiazide 25 Mg Tablet) 25 mg PO DAILY [facility]; Protocol Last Admin: 04/24/22 08:23 Dose: 25 mg Hydroxyzine HCl (Hydroxyzine Hcl 25 Mg Tablet) 25 mg PO Q6H PRN PRN Reason: Anxiety Last Admin: 03/27/22 20:27 Dose: 25 mg Levothyroxine Sodium (Levothyroxine Sodium 50 Mcg Tablet) 50 mcg PO DAILY@0600 [facility] Last Admin: 04/24/22 06:04 Dose: 50 mcg Loratadine (Loratadine 10 Mg Tablet) 10 mg PO DAILY [facility] Last Admin: 04/24/22 08:24 Dose: 10 mg Magnesium Hydroxide (Milk Of Magnesia 30 Ml Oral.Susp) 30 ml PO DAILY PRN PRN Reason: Constipation Melatonin (Melatonin 3 Mg Tablet) 6 mg PO BEDTIME [facility] Last Admin: 04/23/22 20:52 Dose: 6 mg Melatonin (Melatonin 3 Mg Tablet) 3 mg PO BEDTIME PRN PRN Reason: insomnia Last Admin: 03/29/22 20:21 Dose: 3 mg Nystatin (Nystatin Powder 15 Gm Bottle) 1 appl TOPICAL BID [facility]; Protocol Last Admin: 04/24/22 08:25 Dose: 1 appl Polyethylene Glycol (Polyethylene Glycol 3350 17 Gm Powd.Pack) 17 gm PO DAILY PRN PRN Reason: constipation Quetiapine Fumarate (Quetiapine Fumarate 50 Mg Tablet) 50 mg PO BEDTIME [facility] Last Admin: 04/23/22 20:52 Dose: 50 mg Senna/Docusate Sodium (Sennosides/Docusate Sodium Tablet) 1 tab PO DAILY PRN PRN Reason: constipation Sertraline HCl (Sertraline Hcl 50 Mg Tablet) 50 mg PO DAILY [facility] Last Admin: 04/24/22 08:24 Dose: 50 mg Trazodone HCl (Trazodone Hcl 50 Mg Tablet) 50 mg PO BEDTIME PRN PRN Reason: Insomnia Last Admin: 03/08/22 20:26 Dose: 50 mg Allergies Allergies Allergy/AdvReac Type Severity Reaction Status Date / Time No Known Allergies Allergy Verified 02/05/22 21:09 Assessment & Plan Assessment & Plan (1) Dementia: Status: Acute Code(s): F03.90 - Unspecified dementia, unspecified severity, without behavioral dist urbance, psychotic disturbance, mood disturbance, and anxiety Assessment and Plan: . (2) Bipolar disorder: Status: Acute Code(s): F31.9 - Bipolar disorder, unspecified Plan the patient is an elderly female with a past history of bipolar disorder, dementia Alzheimer's type for the last 6 months, admitted for recent exacerbation of psychosis and violent behavior.? Very poor historian unable to provide more information.? PLAN: 1. PT consult ordered 2.. Gather collateral information.? 3. Continue with regular medications.? 4. Discharge to assisted living facility Or retirement facility when ready 5. Increased Aricept to 10 mg p.o. q.h.s. on 02/15 6. Monitor BP 7. MRI and EEG ordered. We will follow the EEG results under was no seizure activity. 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 At this moment neurologically she is stable. 8. Continue recommendations of blood pressure medication as per hospitalist. 9. Waiting for placement. 10. Positive to COVID since 04/09, COVID restrictions release on 04/19. Reason for contiued inpatient stay Substantial Risk for: inability to function, rapid decompensation and med/psych decompensation Time Spent With Patient Time: Total time managing care of this patient today __20__ minutes.
[2022-04-24 18:00] VITALS: BP 129/68; PULSE 66; RESP 16; TEMP 36.2; O2SAT 96
[2022-04-24] MEDS: Divalproex Sodium 500 MG TABLET.DR PO (21:12)
[2022-04-24] MEDS: QUEtiapine Fumarate 50 MG TABLET PO (21:12)
[2022-04-24] MEDS: Donepezil HCl 10 MG TABLET PO (21:12)
[2022-04-24] MEDS: Melatonin 3 MG TABLET 6 MG PO (21:13)
[2022-04-25] MEDS: Levothyroxine Sodium 50 MCG TABLET PO (06:34)
[2022-04-25 08:30] VITALS: BP 135/77; PULSE 73; RESP 18; TEMP 36.3; O2SAT 97
[2022-04-25] MEDS: Sertraline HCL 50 MG TABLET PO (08:31)
[2022-04-25] MEDS: Divalproex Sodium 250 MG TABLET.DR PO (08:31)
[2022-04-25] MEDS: Atorvastatin Calcium 80 MG TABLET PO (08:31)
[2022-04-25] MEDS: hydroCHLOROthiazide 25 MG TABLET PO (08:31)
[2022-04-25] MEDS: amLODIPine Besylate 10 MG TABLET PO (08:31)
[2022-04-25] MEDS: Loratadine 10 MG TABLET PO (08:32)
[2022-04-25] MEDS: carvediloL 12.5 MG TABLET PO ×2 (08:32→20:01)
[2022-04-25] MEDS: Nystatin Powder 15 GM BOTTLE 1 APPL TOPICAL ×2 (08:33→20:03)
--- NOTE | 2022-04-25 13:53 | P.PNPSI_ITS ---
Subjective Subjective Date of Service: 04/25/22 Reason For Visit: depression, anxiety, alzheimers Subjective Notes: Conditional Voluntary Interim History: The nursing staff reported the patient had been compliant with treatment, she slept well. On interview the patient denies new symptoms, waiting for placement. Mental Status Exam Mental Status Exam Patient Appearance: Well Grooomed and Appropriate Patient Orientation: Person and Situation Level of Consciousness: Awake and Appropriate Patient Behavior: Passive Mood Description: Withdrawn Affect Description: Constricted Patient Cognition Impaired: Yes Ability to Follow Directions: Good Speech Pattern: Clear Hallucinations: None Delusions: Not Present Thought Process: Linear Thought Content: positive for Circumstantial Judgement: Fair Diagnostics Vital Signs (24Hr): Vital Signs - 24 hr 04/24/22 18:00 Temperature 97.2 F Pulse Rate 66 Respiratory Rate 16 Blood Pressure 129/68 Pulse Oximetry 96 Oxygen Delivery Method Room Air BMI result Body Mass Index 29.8 Labs Results: 02/28/22 07:59 03/05/22 07:44 Imaging Radiology Impressions: ITS Impressions Head CT 02/06/22 15:04 IMPRESSION: No acute intracranial hemorrhage or territorial infarction. Progressed moderate generalized parenchymal volume loss and mild to moderate chronic white matter microangiopathy. 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 Head CT 02/26/22 10:52 IMPRESSION: No acute intracranial hemorrhage or territorial infarction. Stable diffuse parenchymal volume loss and [id number] chronic white matter microangiopathy. Incompletely visualized moderate left maxillary sinus disease with chronic sclerotic wall thickening. 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 No evidence of acute territorial infarct. No intracranial mass effect or hydrocephalus. Medications Medications Current Medications Acetaminophen (Acetaminophen 325 Mg Tablet) 650 mg PO Q6H PRN PRN Reason: Headache/Pain Mild Scale (1-3) Last Admin: 04/18/22 20:34 Dose: 650 mg Al Hydroxide/Mg Hydroxide (Magnesium Hydrox/Alum Hydrox 30 Ml Oral.Susp) 30 ml PO Q6H PRN PRN Reason: Heartburn/Nausea Amlodipine Besylate (Amlodipine Besylate 10 Mg Tablet) 10 mg PO DAILY [facility]; Protocol Last Admin: 04/25/22 08:31 Dose: 10 mg Artificial Tears (Artificial Tears 15 Ml Drops) 1 drop EYE-BOTH Q4H PRN PRN Reason: dry eyes Last Admin: 03/12/22 21:03 Dose: 1 drop Atorvastatin Calcium (Atorvastatin Calcium 80 Mg Tablet) 80 mg PO DAILY [facility] Last Admin: 04/25/22 08:31 Dose: 80 mg Carvedilol (Carvedilol 12.5 Mg Tablet) 12.5 mg PO BID [facility]; Protocol Last Admin: 04/25/22 08:32 Dose: 12.5 mg Divalproex Sodium (Divalproex Sodium 250 Mg Tablet.Dr) 250 mg PO DAILY [facility] Last Admin: 04/25/22 08:31 Dose: 250 mg Divalproex Sodium (Divalproex Sodium 500 Mg Tablet.Dr) 500 mg PO BEDTIME [facility] Last Admin: 04/24/22 21:12 Dose: 500 mg Donepezil HCl (Donepezil Hcl 10 Mg Tablet) 10 mg PO BEDTIME [facility] Last Admin: 04/24/22 21:12 Dose: 10 mg Guaifenesin/Dextromethorphan (Guaifenesin Dm 100/10/5 Ml 5 Ml Syrup) 10 ml PO Q4H PRN PRN Reason: cough Hydrochlorothiazide (Hydrochlorothiazide 25 Mg Tablet) 25 mg PO DAILY [facility]; Protocol Last Admin: 04/25/22 08:31 Dose: 25 mg Hydroxyzine HCl (Hydroxyzine Hcl 25 Mg Tablet) 25 mg PO Q6H PRN PRN Reason: Anxiety Last Admin: 03/27/22 20:27 Dose: 25 mg Levothyroxine Sodium (Levothyroxine Sodium 50 Mcg Tablet) 50 mcg PO DAILY@0600 [facility] Last Admin: 04/25/22 06:34 Dose: 50 mcg Loratadine (Loratadine 10 Mg Tablet) 10 mg PO DAILY [facility] Last Admin: 04/25/22 08:32 Dose: 10 mg Magnesium Hydroxide (Milk Of Magnesia 30 Ml Oral.Susp) 30 ml PO DAILY PRN PRN Reason: Constipation Melatonin (Melatonin 3 Mg Tablet) 6 mg PO BEDTIME [facility] Last Admin: 04/24/22 21:13 Dose: 6 mg Melatonin (Melatonin 3 Mg Tablet) 3 mg PO BEDTIME PRN PRN Reason: insomnia Last Admin: 03/29/22 20:21 Dose: 3 mg Nystatin (Nystatin Powder 15 Gm Bottle) 1 appl TOPICAL BID [facility]; Protocol Last Admin: 04/25/22 08:33 Dose: 1 appl Polyethylene Glycol (Polyethylene Glycol 3350 17 Gm Powd.Pack) 17 gm PO DAILY PRN PRN Reason: constipation Quetiapine Fumarate (Quetiapine Fumarate 50 Mg Tablet) 50 mg PO BEDTIME [facility] Last Admin: 04/24/22 21:12 Dose: 50 mg Senna/Docusate Sodium (Sennosides/Docusate Sodium Tablet) 1 tab PO DAILY PRN PRN Reason: constipation Sertraline HCl (Sertraline Hcl 50 Mg Tablet) 50 mg PO DAILY [facility] Last Admin: 04/25/22 08:31 Dose: 50 mg Trazodone HCl (Trazodone Hcl 50 Mg Tablet) 50 mg PO BEDTIME PRN PRN Reason: Insomnia Last Admin: 03/08/22 20:26 Dose: 50 mg Allergies Allergies Allergy/AdvReac Type Severity Reaction Status Date / Time No Known Allergies Allergy Verified 02/05/22 21:09 Assessment & Plan Assessment & Plan (1) Dementia: Status: Acute Code(s): F03.90 - Unspecified dementia, unspecified severity, without behavioral disturbance, psychotic disturbance, mood disturbance, and anxiety Assessment and Plan: . (2) Bipolar disorder: Status: Acute Code(s): F31.9 - Bipolar disorder, unspecified Plan the patient is an elderly female with a past history of bipolar disorder, dementia Alzheimer's type for the last 6 months, admitted for recent exacerbation of psychosis and violent behavior.? Very poor historian unable to provide more information.? PLAN: 1. PT consult ordered 2.. Gather collateral information.? 3. Continue with regular medications.? 4. Discharge to assisted living facility [facility] when ready 5. Increased Aricept to 10 mg p.o. q.h.s. on 02/15 6. Monitor BP 7. MRI and EEG ordered. We will follow the EEG results under was no seizure activity. 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 At this moment neurologically she is stable. 8. Continue recommendations of blood pressure medication as per hospitalist. 9. Waiting for placement. 10. Positive to COVID since 04/09, COVID restrictions release on 04/19. Reason for contiued inpatient stay Substantial Risk for: inability to function, rapid decompensation and med/psych decompensation Time Spent With Patient Time: Total time managing care of this patient today __20__ minutes.
[2022-04-25 18:00] VITALS: BP 123/66; PULSE 61; RESP 18; TEMP 36.4; O2SAT 98
[2022-04-25] MEDS: Melatonin 3 MG TABLET 6 MG PO (20:01)
[2022-04-25] MEDS: QUEtiapine Fumarate 50 MG TABLET PO (20:02)
[2022-04-25] MEDS: Donepezil HCl 10 MG TABLET PO (20:02)
[2022-04-25] MEDS: Divalproex Sodium 500 MG TABLET.DR PO (20:02)
[2022-04-26 06:00] VITALS: BP 117/62; PULSE 68; RESP 16; TEMP 36.5; O2SAT 95
[2022-04-26] MEDS: Levothyroxine Sodium 50 MCG TABLET PO (06:18)
[2022-04-26 07:00] VITALS: BMI 29.5
[2022-04-26] MEDS: carvediloL 12.5 MG TABLET PO ×2 (10:28→20:21)
[2022-04-26] MEDS: Atorvastatin Calcium 80 MG TABLET PO (10:28)
[2022-04-26] MEDS: Divalproex Sodium 250 MG TABLET.DR PO (10:28)
[2022-04-26] MEDS: amLODIPine Besylate 10 MG TABLET PO (10:28)
[2022-04-26] MEDS: Sertraline HCL 50 MG TABLET PO (10:28)
[2022-04-26] MEDS: Loratadine 10 MG TABLET PO (10:29)
[2022-04-26] MEDS: hydroCHLOROthiazide 25 MG TABLET PO (10:29)
[2022-04-26] MEDS: Nystatin Powder 15 GM BOTTLE 1 APPL TOPICAL ×2 (13:01→20:15)
--- NOTE | 2022-04-26 16:45 | HO.PSYCHPN ---
Subjective Subjective Date of Service: 04/26/22 Reason For Visit: depression, anxiety, alzheimers Subjective Notes: Conditional Voluntary Interim History: The nursing staff reported the patient has been compliant with treatment, no new symptoms. The social psychologist reported that the application for [employer] has been already done we are waiting for financial clearance. On interview the patient denies new symptoms. Mental Status Exam Mental Status Exam Patient Appearance: Well Grooomed and Appropriate Patient Orientation: Person and Situation Level of Consciousness: Awake and Appropriate Patient Behavior: Appropriate and Passive Mood Description: Calm Affect Description: Constricted Patient Cognition Impaired: Yes Ability to Follow Directions: Good Speech Pattern: Clear Hallucinations: None Delusions: Not Present Thought Process: Linear Thought Content: positive for Circumstantial Judgement: Fair Diagnostics Vital Signs (24Hr): Vital Signs - 24 hr 04/25/22 18:00 04/26/22 06:00 Temperature 97.6 F 97.7 F Pulse Rate 61 68 Respiratory Rate 18 16 Blood Pressure 123/66 117/62 Pulse Oximetry 98 95 Oxygen Delivery Method Room Air Room Air BMI result Body Mass Index 29.5 Labs 02/28/22 07:59 03/05/22 07:44 Imaging Radiology Impressions: ITS Impressions Head CT 02/06/22 15:04 IMPRESSION: No acute intracranial hemorrhage or territorial infarction. Progressed moderate generalized parenchymal volume loss and mild to moderate chronic white matter microangiopathy. 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 Head CT 02/26/22 10:52 IMPRESSION: No acute intracranial hemorrhage or territorial infarction. Stable diffuse parenchymal volume loss and [id number] chronic white matter microangiopathy. Incompletely visualized moderate left maxillary sinus disease with chronic sclerotic wall thickening. 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 No evidence of acute territorial infarct. No intracranial mass effect or hydrocephalus. Medications Medications Current Medications Acetaminophen (Acetaminophen 325 Mg Tablet) 650 mg PO Q6H PRN PRN Reason: Headache/Pain Mild Scale (1-3) Last Admin: 04/18/22 20:34 Dose: 650 mg Al Hydroxide/Mg Hydroxide (Magnesium Hydrox/Alum Hydrox 30 Ml Oral.Susp) 30 ml PO Q6H PRN PRN Reason: Heartburn/Nausea Amlodipine Besylate (Amlodipine Besylate 10 Mg Tablet) 10 mg PO DAILY [facility]; Protocol Last Admin: 04/26/22 10:28 Dose: 10 mg Artificial Tears (Artificial Tears 15 Ml Drops) 1 drop EYE-BOTH Q4H PRN PRN Reason: dry eyes Last Admin: 03/12/22 21:03 Dose: 1 drop Atorvastatin Calcium (Atorvastatin Calcium 80 Mg Tablet) 80 mg PO DAILY [facility] Last Admin: 04/26/22 10:28 Dose: 80 mg Carvedilol (Carvedilol 12.5 Mg Tablet) 12.5 mg PO BID [facility]; Protocol Last Admin: 04/26/22 10:28 Dose: 12.5 mg Divalproex Sodium (Divalproex Sodium 250 Mg Tablet.) 250 mg PO DAILY [facility] Last Admin: 04/26/22 10:28 Dose: 250 mg Divalproex Sodium (Divalproex Sodium 500 Mg Tablet.) 500 mg PO BEDTIME [facility] Last Admin: 04/25/22 20:02 Dose: 500 mg Donepezil HCl (Donepezil Hcl 10 Mg Tablet) 10 mg PO BEDTIME [facility] Last Admin: 04/25/22 20:02 Dose: 10 mg Guaifenesin/Dextromethorphan (Guaifenesin Dm 100/10/5 Ml 5 Ml Syrup) 10 ml PO Q4H PRN PRN Reason: cough Hydrochlorothiazide (Hydrochlorothiazide 25 Mg Tablet) 25 mg PO DAILY [facility]; Protocol Last Admin: 04/26/22 10:29 Dose: 25 mg Hydroxyzine HCl (Hydroxyzine Hcl 25 Mg Tablet) 25 mg PO Q6H PRN PRN Reason: Anxiety Last Admin: 03/27/22 20:27 Dose: 25 mg Levothyroxine Sodium (Levothyroxine Sodium 50 Mcg Tablet) 50 mcg PO DAILY@0600 [facility] Last Admin: 04/26/22 06:18 Dose: 50 mcg Loratadine (Loratadine 10 Mg Tablet) 10 mg PO DAILY [facility] Last Admin: 04/26/22 10:29 Dose: 10 mg Magnesium Hydroxide (Milk Of Magnesia 30 Ml Oral.Susp) 30 ml PO DAILY PRN PRN Reason: Constipation Melatonin (Melatonin 3 Mg Tablet) 6 mg PO BEDTIME [facility] Last Admin: 04/25/22 20:01 Dose: 6 mg Melatonin (Melatonin 3 Mg Tablet) 3 mg PO BEDTIME PRN PRN Reason: insomnia Last Admin: 03/29/22 20:21 Dose: 3 mg Nystatin (Nystatin Powder 15 Gm Bottle) 1 appl TOPICAL BID [facility]; Protocol Last Admin: 04/26/22 13:01 Dose: 1 appl Polyethylene Glycol (Polyethylene Glycol 3350 17 Gm Powd.Pack) 17 gm PO DAILY PRN PRN Reason: constipation Quetiapine Fumarate (Quetiapine Fumarate 50 Mg Tablet) 50 mg PO BEDTIME [facility] Last Admin: 04/25/22 20:02 Dose: 50 mg Senna/Docusate Sodium (Sennosides/Docusate Sodium Tablet) 1 tab PO DAILY PRN PRN Reason: constipation Sertraline HCl (Sertraline Hcl 50 Mg Tablet) 50 mg PO DAILY [facility] Last Admin: 04/26/22 10:28 Dose: 50 mg Trazodone HCl (Trazodone Hcl 50 Mg Tablet) 50 mg PO BEDTIME PRN PRN Reason: Insomnia Last Admin: 03/08/22 20:26 Dose: 50 mg Allergies Allergies Allergy/AdvReac Type Severity Reaction Status Date / Time No Known Allergies Allergy Verified 02/05/22 21:09 Assessment & Plan Assessment & Plan (1) Dementia: Status: Acute Code(s): F03.90 - Unspecified dementia, unspecified severity, without behavioral disturbance, psychotic disturbance, mood disturbance, and anxiety Assessment and Plan: . (2) Bipolar disorder: Status: Acute Code(s): F31.9 - Bipolar disorder, unspecified Plan the patient is an elderly female with a past history of bipolar disorder, dementia Alzheimer's type for the last 6 months, admitted for recent exacerbation of psychosis and violent behavior.? Very poor historian unable to provide more information.? PLAN: 1. PT consult ordered 2.. Gather collateral information.? 3. Continue with regular medications.? 4. Discharge to assisted living facility Or group home facility when ready 5. Increased Aricept to 10 mg p.o. q.h.s. on 02/15 6. Monitor BP 7. MRI and EEG ordered. We will follow the EEG results under was no seizure activity. 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 At this moment neurologically she is stable. 8. Continue recommendations of blood pressure medication as per hospitalist. 9. Waiting for placement. 10. Positive to COVID since 04/09, COVID restrictions release on 04/19. Reason for contiued inpatient stay Substantial Risk for: inability to function, rapid decompensation and med/psych decompensation Time Spent With Patient Time: Total time managing care of this patient today ___20_ minutes.
[2022-04-26 18:00] VITALS: BP 131/69; PULSE 67; RESP 18; TEMP 36.4; O2SAT 97
[2022-04-26] MEDS: Melatonin 3 MG TABLET 6 MG PO (20:20)
[2022-04-26] MEDS: Divalproex Sodium 500 MG TABLET.DR PO (20:21)
[2022-04-26] MEDS: Donepezil HCl 10 MG TABLET PO (20:21)
[2022-04-26] MEDS: QUEtiapine Fumarate 50 MG TABLET PO (20:26)
[2022-04-27] MEDS: Levothyroxine Sodium 50 MCG TABLET PO (05:45)
[2022-04-27 09:00] VITALS: BP 147/78; PULSE 59; RESP 16; TEMP 36.4; O2SAT 99
[2022-04-27] MEDS: amLODIPine Besylate 10 MG TABLET PO (10:15)
[2022-04-27] MEDS: Divalproex Sodium 250 MG TABLET.DR PO (10:15)
[2022-04-27] MEDS: carvediloL 12.5 MG TABLET PO ×2 (10:15→21:42)
[2022-04-27] MEDS: hydroCHLOROthiazide 25 MG TABLET PO (10:15)
[2022-04-27] MEDS: Sertraline HCL 50 MG TABLET PO (10:15)
[2022-04-27] MEDS: Atorvastatin Calcium 80 MG TABLET PO (10:16)
[2022-04-27] MEDS: Loratadine 10 MG TABLET PO (10:16)
[2022-04-27] MEDS: Nystatin Powder 15 GM BOTTLE 1 APPL TOPICAL ×2 (14:31→21:43)
--- NOTE | 2022-04-27 16:24 | HO.PSYCHPN ---
Subjective Subjective Date of Service: 04/27/22 Reason For Visit: depression, anxiety, alzheimers Subjective Notes: Conditional Voluntary Interim History: The nursing staff reported the patient has been pleasant and cooperative, no new symptoms. On interview the patient denies any symptoms she is waiting for placement Mental Status Exam Mental Status Exam Patient Appearance: Well Grooomed and Appropriate Patient Orientation: Person and Situation Level of Consciousness: Awake and Appropriate Patient Behavior: Cooperative Mood Description: Calm Affect Description: Constricted Patient Cognition Impaired: Yes Ability to Follow Directions: Good Speech Pattern: Clear Hallucinations: None Delusions: Not Present Thought Process: Linear Thought Content: positive for Intact Judgement: Fair Diagnostics Vital Signs (24Hr): Vital Signs - 24 hr 04/26/22 18:00 04/27/22 09:00 Temperature 97.6 F 97.6 F Pulse Rate 67 59 Respiratory Rate 18 16 Blood Pressure 131/69 147/78 H Pulse Oximetry 97 99 Oxygen Delivery Method Room Air Room Air BMI result Body Mass Index 29.5 Labs 02/28/22 07:59 03/05/22 07:44 Imaging Radiology Impressions: ITS Impressions Head CT 02/06/22 15:04 IMPRESSION: No acute intracranial hemorrhage or territorial infarction. Progressed moderate generalized parenchymal volume loss and mild to moderate chronic white matter microangiopathy. 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 Head CT 02/26/22 10:52 IMPRESSION: No acute intracranial hemorrhage or territorial infarction. Stable diffuse parenchymal volume loss and [id number] chronic white matter microangiopathy. Incompletely visualized moderate left maxillary sinus disease with chronic sclerotic wall thickening. 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 No evidence of acute territorial infarct. No intracranial mass effect or hydrocephalus. Medications Medications Current Medications Acetaminophen (Acetaminophen 325 Mg Tablet) 650 mg PO Q6H PRN PRN Reason: Headache/Pain Mild Scale (1-3) Last Admin: 04/18/22 20:34 Dose: 650 mg Al Hydroxide/Mg Hydroxide (Magnesium Hydrox/Alum Hydrox 30 Ml Oral.Susp) 30 ml PO Q6H PRN PRN Reason: Heartburn/Nausea Amlodipine Besylate (Amlodipine Besylate 10 Mg Tablet) 10 mg PO DAILY [facility]; Protocol Last Admin: 04/27/22 10:15 Dose: 10 mg Artificial Tears (Artificial Tears 15 Ml Drops) 1 drop EYE-BOTH Q4H PRN PRN Reason: dry eyes Last Admin: 03/12/22 21:03 Dose: 1 drop Atorvastatin Calcium (Atorvastatin Calcium 80 Mg Tablet) 80 mg PO DAILY [facility] Last Admin: 04/27/22 10:16 Dose: 80 mg Carvedilol (Carvedilol 12.5 Mg Tablet) 12.5 mg PO BID [facility]; Protocol Last Admin: 04/27/22 10:15 Dose: 12.5 mg Divalproex Sodium (Divalproex Sodium 250 Mg Tablet.Dr) 250 mg PO DAILY [facility] Last Admin: 04/27/22 10:15 Dose: 250 mg Divalproex Sodium (Divalproex Sodium 500 Mg Tablet.Dr) 500 mg PO BEDTIME [facility] Last Admin: 04/26/22 20:21 Dose: 500 mg Donepezil HCl (Donepezil Hcl 10 Mg Tablet) 10 mg PO BEDTIME [facility] Last Admin: 04/26/22 20:21 Dose: 10 mg Guaifenesin/Dextromethorphan (Guaifenesin Dm 100/10/5 Ml 5 Ml Syrup) 10 ml PO Q4H PRN PRN Reason: cough Hydrochlorothiazide (Hydrochlorothiazide 25 Mg Tablet) 25 mg PO DAILY [facility]; Protocol Last Admin: 04/27/22 10:15 Dose: 25 mg Hydroxyzine HCl (Hydroxyzine Hcl 25 Mg Tablet) 25 mg PO Q6H PRN PRN Reason: Anxiety Last Admin: 03/27/22 20:27 Dose: 25 mg Levothyroxine Sodium (Levothyroxine Sodium 50 Mcg Tablet) 50 mcg PO DAILY@0600 [facility] Last Admin: 04/27/22 05:45 Dose: 50 mcg Loratadine (Loratadine 10 Mg Tablet) 10 mg PO DAILY [facility] Last Admin: 04/27/22 10:16 Dose: 10 mg Magnesium Hydroxide (Milk Of Magnesia 30 Ml Oral.Susp) 30 ml PO DAILY PRN PRN Reason: Constipation Melatonin (Melatonin 3 Mg Tablet) 6 mg PO BEDTIME [facility] Last Admin: 04/26/22 20:20 Dose: 6 mg Melatonin (Melatonin 3 Mg Tablet) 3 mg PO BEDTIME PRN PRN Reason: insomnia Last Admin: 03/29/22 20:21 Dose: 3 mg Nystatin (Nystatin Powder 15 Gm Bottle) 1 appl TOPICAL BID [facility]; Protocol Last Admin: 04/27/22 14:31 Dose: 1 appl Polyethylene Glycol (Polyethylene Glycol 3350 17 Gm Powd.Pack) 17 gm PO DAILY PRN PRN Reason: constipation Quetiapine Fumarate (Quetiapine Fumarate 50 Mg Tablet) 50 mg PO BEDTIME [facility] Last Admin: 04/26/22 20:26 Dose: 50 mg Senna/Docusate Sodium (Sennosides/Docusate Sodium Tablet) 1 tab PO DAILY PRN PRN Reason: constipation Sertraline HCl (Sertraline Hcl 50 Mg Tablet) 50 mg PO DAILY [facility] Last Admin: 04/27/22 10:15 Dose: 50 mg Trazodone HCl (Trazodone Hcl 50 Mg Tablet) 50 mg PO BEDTIME PRN PRN Reason: Insomnia Last Admin: 03/08/22 20:26 Dose: 50 mg Allergies Allergies Allergy/AdvReac Type Severity Reaction Status Date / Time No Known Allergies Allergy Verified 02/05/22 21:09 Assessment & Plan Assessment & Plan (1) Dementia: Status: Acute Code(s): F03.90 - Unspecified dementia, unspecified severity, without behavioral disturbance, psychotic disturbance, mood disturbance, and anxiety Assessment and Plan: . (2) Bipolar disorder: Status: Acute Code(s): F31.9 - Bipolar disorder, unspecified Plan the patient is an elderly female with a past history of bipolar disorder, dementia Alzheimer's type for the last 6 months, admitted for recent exacerbation of psychosis and violent behavior.? Very poor historian unable to provide more information.? PLAN: 1. PT consult ordered 2.. Gather collateral information.? 3. Continue with regular medications.? 4. Discharge to assisted living facility Or [facility] facility when ready 5. Increased Aricept to 10 mg p.o. q.h.s. on 02/15 6. Monitor BP 7. MRI and EEG ordered. We will follow the EEG results under was no seizure activity. 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 At this moment neurologically she is stable. 8. Continue recommendations of blood pressure medication as per hospitalist. 9. Waiting for placement. 10. Positive to COVID since 04/09, COVID restrictions release on 04/19. Reason for contiued inpatient stay Substantial Risk for: inability to function, rapid decompensation and med/psych decompensation Time Spent With Patient Time: Total time managing care of this patient today __20__ minutes.
[2022-04-27 18:00] VITALS: BP 134/79; PULSE 60; RESP 16; TEMP 36.3; O2SAT 98
[2022-04-27] MEDS: Melatonin 3 MG TABLET 6 MG PO (21:39)
[2022-04-27] MEDS: Divalproex Sodium 500 MG TABLET.DR PO (21:40)
[2022-04-27] MEDS: QUEtiapine Fumarate 50 MG TABLET PO (21:41)
[2022-04-27] MEDS: Donepezil HCl 10 MG TABLET PO (21:41)
[2022-04-27] MEDS: traZODone HCL 50 MG TABLET PO (21:41)
[2022-04-28 08:43] VITALS: BP 132/72; PULSE 62; RESP 15; TEMP 36.6; O2SAT 94
[2022-04-28] MEDS: carvediloL 12.5 MG TABLET PO ×2 (08:45→20:49)
[2022-04-28] MEDS: Atorvastatin Calcium 80 MG TABLET PO (08:45)
[2022-04-28] MEDS: Levothyroxine Sodium 50 MCG TABLET PO (08:45)
[2022-04-28] MEDS: Sertraline HCL 50 MG TABLET PO (08:46)
[2022-04-28] MEDS: amLODIPine Besylate 10 MG TABLET PO (08:46)
[2022-04-28] MEDS: Divalproex Sodium 250 MG TABLET.DR PO (08:46)
[2022-04-28] MEDS: Loratadine 10 MG TABLET PO (08:46)
[2022-04-28] MEDS: hydroCHLOROthiazide 25 MG TABLET PO (08:46)
[2022-04-28] MEDS: Nystatin Powder 15 GM BOTTLE 1 APPL TOPICAL ×2 (09:03→20:51)
--- NOTE | 2022-04-28 14:10 | P.PNPSI_ITS ---
Subjective Subjective Date of Service: 04/28/22 Reason For Visit: depression, anxiety, alzheimers Subjective Notes: Conditional Voluntary Interim History: Pt reports doing well. She reports sleeping and eating well. She reports she is not sure what the plan is. She states she does not know if she is staying here or going somewhere. Pt informed plan to transition to senior living facility. Per nursing, no behavioral concerns. pt takes medications as prescribed. Medication Compliance: Yes Side effects from medications: No Review of Systems Review of Systems General: No fevers, malaise, unintentional weight loss HEENT: No blurred vision or diplopia Cardiovascular: No chest pain, palpitations, or leg edema Respiratory: No shortness of breath, wheezing, cough GI: No abdominal pain, nausea, vomiting, diarrhea, constipation, melena, hemato chezia : No dysuria, hematuria, increased urinary frequency, urgency MSK: No myalgia Neuro: No headaches, weakness, paresthesias Skin: No rashes or lesions Yes all other systems are reviewed and are negative and Unobtainable due to mental status Diagnostics Vital Signs (24Hr): Vital Signs - 24 hr 04/27/22 18:00 04/28/22 08:43 Temperature 97.3 F 97.8 F Pulse Rate 60 62 Respiratory Rate 16 15 Blood Pressure 134/79 132/72 Pulse Oximetry 98 94 Oxygen Delivery Method Room Air Room Air BMI result Body Mass Index 29.5 Labs 02/28/22 07:59 03/05/22 07:44 Imaging Radiology Impressions: ITS Impressions Head CT 02/06/22 15:04 IMPRESSION: No acute intracranial hemorrhage or territorial infarction. Progressed moderate generalized parenchymal volume loss and mild to moderate chronic white matter microangiopathy. 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 Head CT 02/26/22 10:52 IMPRESSION: No acute intracranial hemorrhage or territorial infarction. Stable diffuse parenchymal volume loss and [id number] chronic white matter microangiopathy. Incompletely visualized moderate left maxillary sinus disease with chronic sclerotic wall thickening. 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 No evidence of acute territorial infarct. No intracranial mass effect or hydrocephalus. Medications Medications Current Medications Acetaminophen (Acetaminophen 325 Mg Tablet) 650 mg PO Q6H PRN PRN Reason: Headache/Pain Mild Scale (1-3) Last Admin: 04/18/22 20:34 Dose: 650 mg Al Hydroxide/Mg Hydroxide (Magnesium Hydrox/Alum Hydrox 30 Ml Oral.Susp) 30 ml PO Q6H PRN PRN Reason: Heartburn/Nausea Amlodipine Besylate (Amlodipine Besylate 10 Mg Tablet) 10 mg PO DAILY [facility]; Protocol Last Admin: 04/28/22 08:46 Dose: 10 mg Artificial Tears (Artificial Tears 15 Ml Drops) 1 drop EYE-BOTH Q4H PRN PRN Reason: dry eyes Last Admin: 03/12/22 21:03 Dose: 1 drop Atorvastatin Calcium (Atorvastatin Calcium 80 Mg Tablet) 80 mg PO DAILY [facility] Last Admin: 04/28/22 08:45 Dose: 80 mg Carvedilol (Carvedilol 12.5 Mg Tablet) 12.5 mg PO BID [facility]; Protocol Last Admin: 04/28/22 08:45 Dose: 12.5 mg Divalproex Sodium (Divalproex Sodium 250 Mg Tablet.Dr) 250 mg PO DAILY [facility] Last Admin: 04/28/22 08:46 Dose: 250 mg Divalproex Sodium (Divalproex Sodium 500 Mg Tablet.Dr) 500 mg PO BEDTIME [facility] Last Admin: 04/27/22 21:40 Dose: 500 mg Donepezil HCl (Donepezil Hcl 10 Mg Tablet) 10 mg PO BEDTIME [facility] Last Admin: 04/27/22 21:41 Dose: 10 mg Guaifenesin/Dextromethorphan (Guaifenesin Dm 100/10/5 Ml 5 Ml Syrup) 10 ml PO Q4H PRN PRN Reason: cough Hydrochlorothiazide (Hydrochlorothiazide 25 Mg Tablet) 25 mg PO DAILY [facility]; Protocol Last Admin: 04/28/22 08:46 Dose: 25 mg Hydroxyzine HCl (Hydroxyzine Hcl 25 Mg Tablet) 25 mg PO Q6H PRN PRN Reason: Anxiety Last Admin: 03/27/22 20:27 Dose: 25 mg Levothyroxine Sodium (Levothyroxine Sodium 50 Mcg Tablet) 50 mcg PO DAILY@0600 [facility] Last Admin: 04/28/22 08:45 Dose: 50 mcg Loratadine (Loratadine 10 Mg Tablet) 10 mg PO DAILY [facility] Last Admin: 04/28/22 08:46 Dose: 10 mg Magnesium Hydroxide (Milk Of Magnesia 30 Ml Oral.Susp) 30 ml PO DAILY PRN PRN Reason: Constipation Melatonin (Melatonin 3 Mg Tablet) 6 mg PO BEDTIME [facility] Last Admin: 04/27/22 21:39 Dose: 6 mg Melatonin (Melatonin 3 Mg Tablet) 3 mg PO BEDTIME PRN PRN Reason: insomnia Last Admin: 03/29/22 20:21 Dose: 3 mg Nystatin (Nystatin Powder 15 Gm Bottle) 1 appl TOPICAL BID [facility]; Protocol Last Admin: 04/28/22 09:03 Dose: 1 appl Polyethylene Glycol (Polyethylene Glycol 3350 17 Gm Powd.Pack) 17 gm PO DAILY PRN PRN Reason: constipation Quetiapine Fumarate (Quetiapine Fumarate 50 Mg Tablet) 50 mg PO BEDTIME [facility] Last Admin: 04/27/22 21:41 Dose: 50 mg Senna/Docusate Sodium (Sennosides/Docusate Sodium Tablet) 1 tab PO DAILY PRN PRN Reason: constipation Sertraline HCl (Sertraline Hcl 50 Mg Tablet) 50 mg PO DAILY [facility] Last Admin: 04/28/22 08:46 Dose: 50 mg Trazodone HCl (Trazodone Hcl 50 Mg Tablet) 50 mg PO BEDTIME PRN PRN Reason: Insomnia Last Admin: 04/27/22 21:41 Dose: 50 mg Allergies Allergies Allergy/AdvReac Type Severity Reaction Status Date / Time No Known Allergies Allergy Verified 02/05/22 21:09 Assessment & Plan Assessment & Plan (1) Dementia: Status: Acute Code(s): F03.90 - Unspecified dementia, unspecified severity, without behavioral disturbance, psychotic disturbance, mood disturbance, and anxiety Assessment and Plan: . (2) Bipolar disorder: Status: Acute Code(s): F31.9 - Bipolar disorder, unspecified Plan the patient is an elderly female with a past history of bipolar disorder, dementia Alzheimer's type for the last 6 months, admitted for recent exacerbation of psychosis and violent behavior.? Very poor historian unable to provide more information.? PLAN: 1. PT consult ordered 2.. Gather collateral information.? 3. Continue with regular medications.? 4. Discharge to assisted living facility Or [facility]ci facility when ready 5. Increased Aricept to 10 mg p.o. q.h.s. on 02/15 6. Monitor BP 7. MRI and EEG ordered. We will follow the EEG results under was no seizure activity. 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 At this moment neurologically she is stable. 8. Continue recommendations of blood pressure medication as per hospitalist. 9. Waiting for placement. 10. Positive to COVID since 04/09, COVID restrictions release on 04/19. 04/28 continue current tx. awaiting placement. Reason for contiued inpatient stay Substantial Risk for: inability to function Time Spent With Patient Time: Total time managing care of this patient today ____ minutes.
[2022-04-28 18:00] VITALS: BP 130/67; PULSE 59; RESP 18; TEMP 36.4; O2SAT 95
[2022-04-28] MEDS: Melatonin 3 MG TABLET 6 MG PO (20:49)
[2022-04-28] MEDS: Donepezil HCl 10 MG TABLET PO (20:49)
[2022-04-28] MEDS: QUEtiapine Fumarate 50 MG TABLET PO (20:50)
[2022-04-28] MEDS: Divalproex Sodium 500 MG TABLET.DR PO (20:50)
[2022-04-29] MEDS: Levothyroxine Sodium 50 MCG TABLET PO (05:38)
[2022-04-29 06:00] VITALS: BP 140/73; PULSE 103; RESP 17; TEMP 36.2; O2SAT 97
[2022-04-29] MEDS: Atorvastatin Calcium 80 MG TABLET PO (09:21)
[2022-04-29] MEDS: hydroCHLOROthiazide 25 MG TABLET PO (09:21)
[2022-04-29] MEDS: carvediloL 12.5 MG TABLET PO ×2 (09:21→20:09)
[2022-04-29] MEDS: Divalproex Sodium 250 MG TABLET.DR PO (09:21)
[2022-04-29] MEDS: Sertraline HCL 50 MG TABLET PO (09:22)
[2022-04-29] MEDS: Loratadine 10 MG TABLET PO (09:22)
[2022-04-29] MEDS: amLODIPine Besylate 10 MG TABLET PO (09:22)
--- NOTE | 2022-04-29 12:30 | HO.PSYCHPN ---
Subjective Subjective Date of Service: 04/29/22 Reason For Visit: depression, anxiety, alzheimers Subjective Notes: Conditional Voluntary Interim History: Pt in bed. she reports sleeping and eating well. She denies any physical concerns. she is taking medications as prescribed. No SI/HI. no overt psychosis or delusional content noted or reported, pt awaiting placement although forgetful about what the plan is. Per nursing, no behavioral concerns. Review of Systems Review of Systems General: No fevers, malaise, unintentional weight loss HEENT: No blurred vision or diplopia Cardiovascular: No chest pain, palpitations, or leg edema Respiratory: No shortness of breath, wheezing, cough GI: No abdominal pain, nausea, vomiting, diarrhea, constipation, melena, hematochezia : No dysuria, hematuria, increased urinary frequency, urgency MSK: No myalgia Neuro: No headaches, weakness, paresthesias Skin: No rashes or lesions Yes all other systems are reviewed and are negative and Unobtainable due to mental status Mental Status Exam Mental Status Exam Narrative: Patient Appearance: Well Grooomed and Appropriate Patient Orientation: Person and Situation Level of Consciousness: Awake and Appropriate Patient Behavior: Guarded and Cooperative Mood Description: Withdrawn Affect Description: Constricted Ability to Follow Directions: Good Speech Pattern: Clear Hallucinations: None Delusions: Not Present Thought Process: Distracted Thought Content: positive for Circumstantial Judgement: Fair Patient Appearance: Appropriate Patient Orientation: Person and Place Level of Consciousness: Alert Patient Behavior: Appropriate, Talkative, Cooperative and Good Eye Contact Mood Description: Appropriate Affect Description: Appropriate Patient Cognition Impaired: Yes Ability to Follow Directions: Good Speech Pattern: Spontaneous Speech Memory Description: Remote Impaired, Immediate Impaired, Episodic Impaired, Recent Impaired and Working Impaired Diagnostics Vital Signs (24Hr): Vital Signs - 24 hr 04/29/22 06:00 04/29/22 18:00 Temperature 97.2 F 97.2 F Pulse Rate 103 H 65 Respiratory Rate 17 18 Blood Pressure 140/73 H 123/69 Pulse Oximetry 97 93 Oxygen Delivery Method Room Air Room Air BMI result Body Mass Index 29.5 Labs 02/28/22 07:59 03/05/22 07:44 Imaging Radiology Impressions: ITS Impressions Head CT 02/06/22 15:04 IMPRESSION: No acute intracranial hemorrhage or territorial infarction. Progressed moderate generalized parenchymal volume loss and mild to moderate chronic white matter microangiopathy. 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 Head CT 02/26/22 10:52 IMPRESSION: No acute intracranial hemorrhage or territorial infarction. Stable diffuse parenchymal volume loss and [id number] chronic white matter microangiopathy. Incompletely visualized moderate left maxillary sinus disease with chronic sclerotic wall thickening. 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 No evidence of acute territorial infarct. No intracranial mass effect or hydrocephalus. Medications Medications Current Medications Acetaminophen (Acetaminophen 325 Mg Tablet) 650 mg PO Q6H PRN PRN Reason: Headache/Pain Mild Scale (1-3) Last Admin: 04/18/22 20:34 Dose: 650 mg Al Hydroxide/Mg Hydroxide (Magnesium Hydrox/Alum Hydrox 30 Ml Oral.Susp) 30 ml PO Q6H PRN PRN Reason: Heartburn/Nausea Amlodipine Besylate (Amlodipine Besylate 10 Mg Tablet) 10 mg PO DAILY [facility]; Protocol Last Admin: 04/29/22 09:22 Dose: 10 mg Artificial Tears (Artificial Tears 15 Ml Drops) 1 drop EYE-BOTH Q4H PRN PRN Reason: dry eyes Last Admin: 03/12/22 21:03 Dose: 1 drop Atorvastatin Calcium (Atorvastatin Calcium 80 Mg Tablet) 80 mg PO DAILY [facility] Last Admin: 04/29/22 09:21 Dose: 80 mg Carvedilol (Carvedilol 12.5 Mg Tablet) 12.5 mg PO BID [facility]; Protocol Last Admin: 04/29/22 20:09 Dose: 12.5 mg Divalproex Sodium (Divalproex Sodium 250 Mg Tablet.) 250 mg PO DAILY [facility] Last Admin: 04/29/22 09:21 Dose: 250 mg Divalproex Sodium (Divalproex Sodium 500 Mg Tablet.) 500 mg PO BEDTIME [facility] Last Admin: 04/29/22 20:09 Dose: 500 mg Donepezil HCl (Donepezil Hcl 10 Mg Tablet) 10 mg PO BEDTIME [facility] Last Admin: 04/29/22 20:09 Dose: 10 mg Guaifenesin/Dextromethorphan (Guaifenesin Dm 100/10/5 Ml 5 Ml Syrup) 10 ml PO Q4H PRN PRN Reason: cough Hydrochlorothiazide (Hydrochlorothiazide 25 Mg Tablet) 25 mg PO DAILY [facility]; Protocol Last Admin: 04/29/22 09:21 Dose: 25 mg Hydroxyzine HCl (Hydroxyzine Hcl 25 Mg Tablet) 25 mg PO Q6H PRN PRN Reason: Anxiety Last Admin: 03/27/22 20:27 Dose: 25 mg Levothyroxine Sodium (Levothyroxine Sodium 50 Mcg Tablet) 50 mcg PO DAILY@0600 [facility] Last Admin: 04/30/22 05:03 Dose: 50 mcg Loratadine (Loratadine 10 Mg Tablet) 10 mg PO DAILY [facility] Last Admin: 04/29/22 09:22 Dose: 10 mg Magnesium Hydroxide (Milk Of Magnesia 30 Ml Oral.Susp) 30 ml PO DAILY PRN PRN Reason: Constipation Melatonin (Melatonin 3 Mg Tablet) 6 mg PO BEDTIME [facility] Last Admin: 04/29/22 20:10 Dose: 6 mg Melatonin (Melatonin 3 Mg Tablet) 3 mg PO BEDTIME PRN PRN Reason: insomnia Last Admin: 03/29/22 20:21 Dose: 3 mg Nystatin (Nystatin Powder 15 Gm Bottle) 1 appl TOPICAL BID [facility]; Protocol Last Admin: 04/29/22 20:12 Dose: Not Given Polyethylene Glycol (Polyethylene Glycol 3350 17 Gm Powd.Pack) 17 gm PO DAILY PRN PRN Reason: constipation Quetiapine Fumarate (Quetiapine Fumarate 50 Mg Tablet) 50 mg PO BEDTIME [facility] Last Admin: 04/29/22 20:09 Dose: 50 mg Senna/Docusate Sodium (Sennosides/Docusate Sodium Tablet) 1 tab PO DAILY PRN PRN Reason: constipation Sertraline HCl (Sertraline Hcl 50 Mg Tablet) 50 mg PO DAILY [facility] Last Admin: 04/29/22 09:22 Dose: 50 mg Trazodone HCl (Trazodone Hcl 50 Mg Tablet) 50 mg PO BEDTIME PRN PRN Reason: Insomnia Last Admin: 04/27/22 21:41 Dose: 50 mg Allergies Allergies Allergy/AdvReac Type Severity Reaction Status Date / Time No Known Allergies Allergy Verified 02/05/22 21:09 Assessment & Plan Assessment & Plan (1) Dementia: Status: Acute Code(s): F03.90 - Unspecified dementia, unspecified severity, without behavioral disturbance, psychotic disturbance, mood disturbance, and anxiety Assessment and Plan: . (2) Bipolar disorder: Status: Acute Code(s): F31.9 - Bipolar disorder, unspecified Plan the patient is an elderly female with a past history of bipolar disorder, dementia Alzheimer's type for the last 6 months, admitted for recent exacerbation of psychosis and violent behavior.? Very poor historian unable to provide more information.? PLAN: 1. PT consult ordered 2.. Gather collateral information.? 3. Continue with regular medications.? 4. Discharge to assisted living facility Or intermediate facility when ready 5. Increased Aricept to 10 mg p.o. q.h.s. on 02/15 6. Monitor BP 7. MRI and EEG ordered. We will follow the EEG results under was no seizure activity. 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 At this moment neurologically she is stable. 8. Continue recommendations of blood pressure medication as per hospitalist. 9. Waiting for placement. 10. Positive to COVID since 04/09, COVID restrictions release on 04/19. 04/28 continue current tx. awaiting placement. 04/29 continue tx. Patient educated on: diagnosis and medication risk/benefits Informed Consent: understands Reason for contiued inpatient stay Substantial Risk for: inability to function Time Spent With Patient Time: Total time managing care of this patient today ____ minutes.
[2022-04-29 18:00] VITALS: BP 123/69; PULSE 65; RESP 18; TEMP 36.2; O2SAT 93
[2022-04-29] MEDS: QUEtiapine Fumarate 50 MG TABLET PO (20:09)
[2022-04-29] MEDS: Donepezil HCl 10 MG TABLET PO (20:09)
[2022-04-29] MEDS: Divalproex Sodium 500 MG TABLET.DR PO (20:09)
[2022-04-29] MEDS: Melatonin 3 MG TABLET 6 MG PO (20:10)
[2022-04-30] MEDS: Levothyroxine Sodium 50 MCG TABLET PO (05:03)
[2022-04-30 06:00] VITALS: BP 155/80; PULSE 69; RESP 16; TEMP 35.8; O2SAT 95
[2022-04-30] MEDS: amLODIPine Besylate 10 MG TABLET PO (09:44)
[2022-04-30] MEDS: Atorvastatin Calcium 80 MG TABLET PO (09:44)
[2022-04-30] MEDS: Sertraline HCL 50 MG TABLET PO (09:44)
[2022-04-30] MEDS: hydroCHLOROthiazide 25 MG TABLET PO (09:44)
[2022-04-30] MEDS: carvediloL 12.5 MG TABLET PO ×2 (09:45→20:35)
[2022-04-30] MEDS: Divalproex Sodium 250 MG TABLET.DR PO (09:45)
[2022-04-30] MEDS: Loratadine 10 MG TABLET PO (09:45)
--- NOTE | 2022-04-30 13:49 | HO.PSYCHPN ---
Subjective Subjective Date of Service: 04/30/22 Reason For Visit: depression, anxiety, alzheimers Subjective Notes: Conditional Voluntary Interim History: The nursing staff reported the patient had been compliant with treatment, she slept well no new symptoms. On interview the patient denies new symptoms she is okay, waiting for placement. Mental Status Exam Mental Status Exam Patient Appearance: Well Grooomed and Appropriate Patient Orientation: Person and Situation Level of Consciousness: Awake and Appropriate Patient Behavior: Cooperative Mood Description: Calm Affect Description: Constricted Patient Cognition Impaired: Yes Ability to Follow Directions: Good Speech Pattern: Clear Hallucinations: None Delusions: Not Present Thought Process: Linear Thought Content: positive for Circumstantial Judgement: Fair Diagnostics Vital Signs (24Hr): Vital Signs - 24 hr 04/29/22 18:00 Temperature 97.2 F Pulse Rate 65 Respiratory Rate 18 Blood Pressure 123/69 Pulse Oximetry 93 Oxygen Delivery Method Room Air BMI result Body Mass Index 29.5 Labs 02/28/22 07:59 03/05/22 07:44 Imaging Radiology Impressions: ITS Impressions Head CT 02/06/22 15:04 IMPRESSION: No acute intracranial hemorrhage or territorial infarction. Progressed moderate generalized parenchymal volume loss and mild to moderate chronic white matter microangiopathy. 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 Head CT 02/26/22 10:52 IMPRESSION: No acute intracranial hemorrhage or territorial infarction. Stable diffuse parenchymal volume loss and [id number] chronic white matter microangiopathy. Incompletely visualized moderate left maxillary sinus disease with chronic sclerotic wall thickening. 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 No evidence of acute territorial infarct. No intracranial mass effect or hydrocephalus. Medications Medications Current Medications Acetaminophen (Acetaminophen 325 Mg Tablet) 650 mg PO Q6H PRN PRN Reason: Headache/Pain Mild Scale (1-3) Last Admin: 04/18/22 20:34 Dose: 650 mg Al Hydroxide/Mg Hydroxide (Magnesium Hydrox/Alum Hydrox 30 Ml Oral.Susp) 30 ml PO Q6H PRN PRN Reason: Heartburn/Nausea Amlodipine Besylate (Amlodipine Besylate 10 Mg Tablet) 10 mg PO DAILY [facility]; Protocol Last Admin: 04/30/22 09:44 Dose: 10 mg Artificial Tears (Artificial Tears 15 Ml Drops) 1 drop EYE-BOTH Q4H PRN PRN Reason: dry eyes Last Admin: 03/12/22 21:03 Dose: 1 drop Atorvastatin Calcium (Atorvastatin Calcium 80 Mg Tablet) 80 mg PO DAILY [facility] Last Admin: 04/30/22 09:44 Dose: 80 mg Carvedilol (Carvedilol 12.5 Mg Tablet) 12.5 mg PO BID [facility]; Protocol Last Admin: 04/30/22 09:45 Dose: 12.5 mg Divalproex Sodium (Divalproex Sodium 250 Mg Tablet.Dr) 250 mg PO DAILY [facility] Last Admin: 04/30/22 09:45 Dose: 250 mg Divalproex Sodium (Divalproex Sodium 500 Mg Tablet.Dr) 500 mg PO BEDTIME [facility] Last Admin: 04/29/22 20:09 Dose: 500 mg Donepezil HCl (Donepezil Hcl 10 Mg Tablet) 10 mg PO BEDTIME [facility] Last Admin: 04/29/22 20:09 Dose: 10 mg Guaifenesin/Dextromethorphan (Guaifenesin Dm 100/10/5 Ml 5 Ml Syrup) 10 ml PO Q4H PRN PRN Reason: cough Hydrochlorothiazide (Hydrochlorothiazide 25 Mg Tablet) 25 mg PO DAILY [facility]; Protocol Last Admin: 04/30/22 09:44 Dose: 25 mg Hydroxyzine HCl (Hydroxyzine Hcl 25 Mg Tablet) 25 mg PO Q6H PRN PRN Reason: Anxiety Last Admin: 03/27/22 20:27 Dose: 25 mg Levothyroxine Sodium (Levothyroxine Sodium 50 Mcg Tablet) 50 mcg PO DAILY@0600 [facility] Last Admin: 04/30/22 05:03 Dose: 50 mcg Loratadine (Loratadine 10 Mg Tablet) 10 mg PO DAILY [facility] Last Admin: 04/30/22 09:45 Dose: 10 mg Magnesium Hydroxide (Milk Of Magnesia 30 Ml Oral.Susp) 30 ml PO DAILY PRN PRN Reason: Constipation Melatonin (Melatonin 3 Mg Tablet) 6 mg PO BEDTIME [facility] Last Admin: 04/29/22 20:10 Dose: 6 mg Melatonin (Melatonin 3 Mg Tablet) 3 mg PO BEDTIME PRN PRN Reason: insomnia Last Admin: 03/29/22 20:21 Dose: 3 mg Nystatin (Nystatin Powder 15 Gm Bottle) 1 appl TOPICAL BID [facility]; Protocol Last Admin: 04/29/22 20:12 Dose: Not Given Polyethylene Glycol (Polyethylene Glycol 3350 17 Gm Powd.Pack) 17 gm PO DAILY PRN PRN Reason: constipation Quetiapine Fumarate (Quetiapine Fumarate 50 Mg Tablet) 50 mg PO BEDTIME [facility] Last Admin: 04/29/22 20:09 Dose: 50 mg Senna/Docusate Sodium (Sennosides/Docusate Sodium Tablet) 1 tab PO DAILY PRN PRN Reason: constipation Sertraline HCl (Sertraline Hcl 50 Mg Tablet) 50 mg PO DAILY [facility] Last Admin: 04/30/22 09:44 Dose: 50 mg Trazodone HCl (Trazodone Hcl 50 Mg Tablet) 50 mg PO BEDTIME PRN PRN Reason: Insomnia Last Admin: 04/27/22 21:41 Dose: 50 mg Allergies Allergies Allergy/AdvReac Type Severity Reaction Status Date / Time No Known Allergies Allergy Verified 02/05/22 21:09 Assessment & Plan Assessment & Plan (1) Dementia: Status: Acute Code(s): F03.90 - Unspecified dementia, unspecified severity, without behavioral disturbance, psychotic disturbance, mood disturbance, and anxiety Assessment and Plan: . (2) Bipolar disorder: Status: Acute Code(s): F31.9 - Bipolar disorder, unspecified Plan the patient is an elderly female with a past history of bipolar disorder, dementia Alzheimer's type for the last 6 months, admitted for recent exacerbation of psychosis and violent behavior.? Very poor historian unable to provide more information.? PLAN: 1. PT consult ordered 2.. Gather collateral information.? 3. Continue with regular medications.? 4. Discharge to assisted living facility Or [facility] facility when ready 5. Increased Aricept to 10 mg p.o. q.h.s. on 02/15 6. Monitor BP 7. MRI and EEG ordered. We will follow the EEG results under was no seizure activity. 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 At this moment neurologically she is stable. 8. Continue recommendations of blood pressure medication as per hospitalist. 9. Waiting for placement. 10. Positive to COVID since 04/09, COVID restrictions release on 04/19. Reason for contiued inpatient stay Substantial Risk for: inability to function, rapid decompensation and med/psych decompensation Time Spent With Patient Time: Total time managing care of this patient today __20__ minutes.
[2022-04-30] MEDS: Nystatin Powder 15 GM BOTTLE 1 APPL TOPICAL ×2 (18:50→20:34)
[2022-04-30] MEDS: Divalproex Sodium 500 MG TABLET.DR PO (20:35)
[2022-04-30] MEDS: Donepezil HCl 10 MG TABLET PO (20:35)
[2022-04-30] MEDS: QUEtiapine Fumarate 50 MG TABLET PO (20:35)
[2022-04-30] MEDS: Melatonin 3 MG TABLET 6 MG PO (20:35)
[2022-04-30 21:17] VITALS: BP 126/67; PULSE 69; RESP 20; TEMP 37.1; O2SAT 97
[2022-05-01] MEDS: Levothyroxine Sodium 50 MCG TABLET PO (05:47)
[2022-05-01 08:00] VITALS: BP 129/68; PULSE 59; RESP 16; TEMP 36.3; O2SAT 96
[2022-05-01] MEDS: hydroCHLOROthiazide 25 MG TABLET PO (08:52)
[2022-05-01] MEDS: Atorvastatin Calcium 80 MG TABLET PO (08:53)
[2022-05-01] MEDS: Loratadine 10 MG TABLET PO (08:53)
[2022-05-01] MEDS: amLODIPine Besylate 10 MG TABLET PO (08:54)
[2022-05-01] MEDS: Divalproex Sodium 250 MG TABLET.DR PO (08:54)
[2022-05-01] MEDS: Sertraline HCL 50 MG TABLET PO (08:55)
[2022-05-01] MEDS: carvediloL 12.5 MG TABLET PO ×2 (08:55→21:18)
--- NOTE | 2022-05-01 15:23 | HO.PSYCHPN ---
Subjective Subjective Date of Service: 05/01/22 Reason For Visit: depression, anxiety, alzheimers Interim History: The nursing staff reported the patient had been fully compliant with treatment, no changes in her mental status. On interview the patient reports that she is doing fine, waiting for placement. Mental Status Exam Mental Status Exam Patient Appearance: Well Grooomed Patient Orientation: Person and Situation Level of Consciousness: Awake and Appropriate Patient Behavior: Cooperative Mood Description: Calm Affect Description: Constricted Patient Cognition Impaired: Yes Ability to Follow Directions: Good Speech Pattern: Clear Hallucinations: None Delusions: Not Present Thought Process: Linear Thought Content: positive for Circumstantial Judgement: Fair Diagnostics Vital Signs (24Hr): Vital Signs - 24 hr 04/30/22 21:17 05/01/22 08:00 Temperature 98.8 F 97.3 F Pulse Rate 69 59 Respiratory Rate 20 16 Blood Pressure 126/67 129/68 Pulse Oximetry 97 96 Oxygen Delivery Method Room Air Room Air BMI result Body Mass Index 29.5 Labs 02/28/22 07:59 03/05/22 07:44 Imaging Radiology Impressions: ITS Impressions Head CT 02/06/22 15:04 IMPRESSION: No acute intracranial hemorrhage or territorial infarction. Progressed moderate generalized parenchymal volume loss and mild to moderate chronic white matter microangiopathy. 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 Head CT 02/26/22 10:52 IMPRESSION: No acute intracranial hemorrhage or territorial infarction. Stable diffuse parenchymal volume loss and [id number] chronic white matter microangiopathy. Incompletely visualized moderate left maxillary sinus disease with chronic sclerotic wall thickening. 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 No evidence of acute territorial infarct. No intracranial mass effect or hydrocephalus. Medications Medications Current Medications Acetaminophen (Acetaminophen 325 Mg Tablet) 650 mg PO Q6H PRN PRN Reason: Headache/Pain Mild Scale (1-3) Last Admin: 04/18/22 20:34 Dose: 650 mg Al Hydroxide/Mg Hydroxide (Magnesium Hydrox/Alum Hydrox 30 Ml Oral.Susp) 30 ml PO Q6H PRN PRN Reason: Heartburn/Nausea Amlodipine Besylate (Amlodipine Besylate 10 Mg Tablet) 10 mg PO DAILY [facility]; Protocol Last Admin: 05/01/22 08:54 Dose: 10 mg Artificial Tears (Artificial Tears 15 Ml Drops) 1 drop EYE-BOTH Q4H PRN PRN Reason: dry eyes Last Admin: 03/12/22 21:03 Dose: 1 drop Atorvastatin Calcium (Atorvastatin Calcium 80 Mg Tablet) 80 mg PO DAILY [facility] Last Admin: 05/01/22 08:53 Dose: 80 mg Carvedilol (Carvedilol 12.5 Mg Tablet) 12.5 mg PO BID [facility]; Protocol Last Admin: 05/01/22 08:55 Dose: 12.5 mg Divalproex Sodium (Divalproex Sodium 250 Mg Tablet.Dr) 250 mg PO DAILY [facility] Last Admin: 05/01/22 08:54 Dose: 250 mg Divalproex Sodium (Divalproex Sodium 500 Mg Tablet.Dr) 500 mg PO BEDTIME [facility] Last Admin: 04/30/22 20:35 Dose: 500 mg Donepezil HCl (Donepezil Hcl 10 Mg Tablet) 10 mg PO BEDTIME [facility] Last Admin: 04/30/22 20:35 Dose: 10 mg Guaifenesin/Dextromethorphan (Guaifenesin Dm 100/10/5 Ml 5 Ml Syrup) 10 ml PO Q4H PRN PRN Reason: cough Hydrochlorothiazide (Hydrochlorothiazide 25 Mg Tablet) 25 mg PO DAILY [facility]; Protocol Last Admin: 05/01/22 08:52 Dose: 25 mg Hydroxyzine HCl (Hydroxyzine Hcl 25 Mg Tablet) 25 mg PO Q6H PRN PRN Reason: Anxiety Last Admin: 03/27/22 20:27 Dose: 25 mg Levothyroxine Sodium (Levothyroxine Sodium 50 Mcg Tablet) 50 mcg PO DAILY@0600 [facility] Last Admin: 05/01/22 05:47 Dose: 50 mcg Loratadine (Loratadine 10 Mg Tablet) 10 mg PO DAILY [facility] Last Admin: 05/01/22 08:53 Dose: 10 mg Magnesium Hydroxide (Milk Of Magnesia 30 Ml Oral.Susp) 30 ml PO DAILY PRN PRN Reason: Constipation Melatonin (Melatonin 3 Mg Tablet) 6 mg PO BEDTIME [facility] Last Admin: 04/30/22 20:35 Dose: 6 mg Melatonin (Melatonin 3 Mg Tablet) 3 mg PO BEDTIME PRN PRN Reason: insomnia Last Admin: 03/29/22 20:21 Dose: 3 mg Nystatin (Nystatin Powder 15 Gm Bottle) 1 appl TOPICAL BID [facility]; Protocol Last Admin: 05/01/22 08:59 Dose: Not Given Polyethylene Glycol (Polyethylene Glycol 3350 17 Gm Powd.Pack) 17 gm PO DAILY PRN PRN Reason: constipation Quetiapine Fumarate (Quetiapine Fumarate 50 Mg Tablet) 50 mg PO BEDTIME [facility] Last Admin: 04/30/22 20:35 Dose: 50 mg Senna/Docusate Sodium (Sennosides/Docusate Sodium Tablet) 1 tab PO DAILY PRN PRN Reason: constipation Sertraline HCl (Sertraline Hcl 50 Mg Tablet) 50 mg PO DAILY [facility] Last Admin: 05/01/22 08:55 Dose: 50 mg Trazodone HCl (Trazodone Hcl 50 Mg Tablet) 50 mg PO BEDTIME PRN PRN Reason: Insomnia Last Admin: 04/27/22 21:41 Dose: 50 mg Allergies Allergies Allergy/AdvReac Type Severity Reaction Status Date / Time No Known Allergies Allergy Verified 02/05/22 21:09 Assessment & Plan Assessment & Plan (1) Dementia: Status: Acute Code(s): F03.90 - Unspecified dementia, unspecified severity, without behavioral disturbance, psychotic disturbance, mood disturbance, and anxiety Assessment and Plan: . (2) Bipolar disorder: Status: Acute Code(s): F31.9 - Bipolar disorder, unspecified Plan the patient is an elderly female with a past history of bipolar disorder, dementia Alzheimer's type for the last 6 months, admitted for recent exacerbation of psychosis and violent behavior.? Very poor historian unable to provide more information.? PLAN: 1. PT consult ordered 2.. Gather collateral information.? 3. Continue with regular medications.? 4. Discharge to assisted living facility Or [facility] facility when ready 5. Increased Aricept to 10 mg p.o. q.h.s. on 02/15 6. Monitor BP 7. MRI and EEG ordered. We will follow the EEG results under was no seizure activity. 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 At this moment neurologically she is stable. 8. Continue recommendations of blood pressure medication as per hospitalist. 9. Waiting for placement. 10. Positive to COVID since 04/09, COVID restrictions release on 04/19. Reason for contiued inpatient stay Substantial Risk for: inability to function, rapid decompensation and med/psych decompensation Time Spent With Patient Time: Total time managing care of this patient today __20__ minutes.
[2022-05-01 18:00] VITALS: BP 133/67; PULSE 62; RESP 16; TEMP 36.2; O2SAT 97
[2022-05-01] MEDS: Nystatin Powder 15 GM BOTTLE 1 APPL TOPICAL (21:17)
[2022-05-01] MEDS: Divalproex Sodium 500 MG TABLET.DR PO (21:17)
[2022-05-01] MEDS: Melatonin 3 MG TABLET 6 MG PO (21:18)
[2022-05-01] MEDS: Donepezil HCl 10 MG TABLET PO (21:19)
[2022-05-01] MEDS: QUEtiapine Fumarate 50 MG TABLET PO (21:19)
[2022-05-02 06:00] VITALS: BP 151/78; PULSE 60; RESP 16; TEMP 36.6; O2SAT 98
[2022-05-02] MEDS: carvediloL 12.5 MG TABLET PO ×2 (08:09→20:02)
[2022-05-02] MEDS: Sertraline HCL 50 MG TABLET PO (08:09)
[2022-05-02] MEDS: Divalproex Sodium 250 MG TABLET.DR PO (08:10)
[2022-05-02] MEDS: Loratadine 10 MG TABLET PO (08:10)
[2022-05-02] MEDS: hydroCHLOROthiazide 25 MG TABLET PO (08:10)
[2022-05-02] MEDS: Atorvastatin Calcium 80 MG TABLET PO (08:10)
[2022-05-02] MEDS: amLODIPine Besylate 10 MG TABLET PO (08:10)
--- NOTE | 2022-05-02 15:10 | P.PNPSI_ITS ---
Subjective Subjective Date of Service: 05/02/22 Reason For Visit: depression, anxiety, alzheimers Subjective Notes: Conditional Voluntary Interim History: The nursing staff reported the patient had been fully compliant with treatment, no side effects. The social work lecturer reported she has referred to several nursing home facilities and so far there to deny else. On interview the patient denies new symptoms, waiting for placement. Mental Status Exam Mental Status Exam Patient Appearance: Well Grooomed Patient Orientation: Person and Situation Level of Consciousness: Awake and Appropriate Patient Behavior: Cooperative Mood Description: Calm Affect Description: Constricted Patient Cognition Impaired: Yes Ability to Follow Directions: Good Speech Pattern: Clear Hallucinations: None Delusions: Not Present Thought Process: Linear Thought Content: positive for Circumstantial Judgement: Fair Diagnostics Vital Signs (24Hr): Vital Signs - 24 hr 05/01/22 18:00 05/02/22 06:00 Temperature 97.1 F 97.8 F Pulse Rate 62 60 Respiratory Rate 16 16 Blood Pressure 133/67 151/78 H Pulse Oximetry 97 98 Oxygen Delivery Method Room Air Room Air BMI result Body Mass Index 29.5 Labs 02/28/22 07:59 03/05/22 07:44 Imaging Radiology Impressions: ITS Impressions Head CT 02/06/22 15:04 IMPRESSION: No acute intracranial hemorrhage or territorial infarction. Progressed moderate generalized parenchymal volume loss and mild to moderate chronic white matter microangiopathy. 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 Head CT 02/26/22 10:52 IMPRESSION: No acute intracranial hemorrhage or territorial infarction. Stable diffuse parenchymal volume loss and [id number] chronic white matter microangiopathy. Incompletely visualized moderate left maxillary sinus disease with chronic sclerotic wall thickening. 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 No evidence of acute territorial infarct. No intracranial mass effect or hydrocephalus. Medications Medications Current Medications Acetaminophen (Acetaminophen 325 Mg Tablet) 650 mg PO Q6H PRN PRN Reason: Headache/Pain Mild Scale (1-3) Last Admin: 04/18/22 20:34 Dose: 650 mg Al Hydroxide/Mg Hydroxide (Magnesium Hydrox/Alum Hydrox 30 Ml Oral.Susp) 30 ml PO Q6H PRN PRN Reason: Heartburn/Nausea Amlodipine Besylate (Amlodipine Besylate 10 Mg Tablet) 10 mg PO DAILY [facility]; Protocol Last Admin: 05/02/22 08:10 Dose: 10 mg Artificial Tears (Artificial Tears 15 Ml Drops) 1 drop EYE-BOTH Q4H PRN PRN Reason: dry eyes Last Admin: 03/12/22 21:03 Dose: 1 drop Atorvastatin Calcium (Atorvastatin Calcium 80 Mg Tablet) 80 mg PO DAILY [facility] Last Admin: 05/02/22 08:10 Dose: 80 mg Carvedilol (Carvedilol 12.5 Mg Tablet) 12.5 mg PO BID [facility]; Protocol Last Admin: 05/02/22 08:09 Dose: 12.5 mg Divalproex Sodium (Divalproex Sodium 250 Mg Tablet.) 250 mg PO DAILY [facility] Last Admin: 05/02/22 08:10 Dose: 250 mg Divalproex Sodium (Divalproex Sodium 500 Mg Tablet.) 500 mg PO BEDTIME [facility] Last Admin: 05/01/22 21:17 Dose: 500 mg Donepezil HCl (Donepezil Hcl 10 Mg Tablet) 10 mg PO BEDTIME [facility] Last Admin: 05/01/22 21:19 Dose: 10 mg Guaifenesin/Dextromethorphan (Guaifenesin Dm 100/10/5 Ml 5 Ml Syrup) 10 ml PO Q4H PRN PRN Reason: cough Hydrochlorothiazide (Hydrochlorothiazide 25 Mg Tablet) 25 mg PO DAILY [facility]; Protocol Last Admin: 05/02/22 08:10 Dose: 25 mg Hydroxyzine HCl (Hydroxyzine Hcl 25 Mg Tablet) 25 mg PO Q6H PRN PRN Reason: Anxiety Last Admin: 03/27/22 20:27 Dose: 25 mg Levothyroxine Sodium (Levothyroxine Sodium 50 Mcg Tablet) 50 mcg PO DAILY@0600 [facility] Last Admin: 05/02/22 10:21 Dose: Not Given Loratadine (Loratadine 10 Mg Tablet) 10 mg PO DAILY [facility] Last Admin: 05/02/22 08:10 Dose: 10 mg Magnesium Hydroxide (Milk Of Magnesia 30 Ml Oral.Susp) 30 ml PO DAILY PRN PRN Reason: Constipation Melatonin (Melatonin 3 Mg Tablet) 6 mg PO BEDTIME [facility] Last Admin: 05/01/22 21:18 Dose: 6 mg Melatonin (Melatonin 3 Mg Tablet) 3 mg PO BEDTIME PRN PRN Reason: insomnia Last Admin: 03/29/22 20:21 Dose: 3 mg Nystatin (Nystatin Powder 15 Gm Bottle) 1 appl TOPICAL BID [facility]; Protocol Last Admin: 05/01/22 21:17 Dose: 1 appl Polyethylene Glycol (Polyethylene Glycol 3350 17 Gm Powd.Pack) 17 gm PO DAILY PRN PRN Reason: constipation Quetiapine Fumarate (Quetiapine Fumarate 50 Mg Tablet) 50 mg PO BEDTIME [facility] Last Admin: 05/01/22 21:19 Dose: 50 mg Senna/Docusate Sodium (Sennosides/Docusate Sodium Tablet) 1 tab PO DAILY PRN PRN Reason: constipation Sertraline HCl (Sertraline Hcl 50 Mg Tablet) 50 mg PO DAILY [facility] Last Admin: 05/02/22 08:09 Dose: 50 mg Trazodone HCl (Trazodone Hcl 50 Mg Tablet) 50 mg PO BEDTIME PRN PRN Reason: Insomnia Last Admin: 04/27/22 21:41 Dose: 50 mg Allergies Allergies Allergy/AdvReac Type Severity Reaction Status Date / Time No Known Allergies Allergy Verified 02/05/22 21:09 Assessment & Plan Assessment & Plan (1) Dementia: Status: Acute Code(s): F03.90 - Unspecified dementia, unspecified severity, without behavioral disturbance, psychotic disturbance, mood disturbance, and anxiety Assessment and Plan: . (2) Bipolar disorder: Status: Acute Code(s): F31.9 - Bipolar disorder, unspecified Plan the patient is an elderly female with a past history of bipolar disorder, dementia Alzheimer's type for the last 6 months, admitted for recent exacerbation of psychosis and violent behavior.? Very poor historian unable to provide more information.? PLAN: 1. PT consult ordered 2.. Gather collateral information.? 3. Continue with regular medications.? 4. Discharge to assisted living facility Or nursing home facility when ready 5. Increased Aricept to 10 mg p.o. q.h.s. on 02/15 6. Monitor BP 7. MRI and EEG ordered. We will follow the EEG results under was no seizure activity. 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 At this moment neurologically she is stable. 8. Continue recommendations of blood pressure medication as per hospitalist. 9. Waiting for placement. 10. Positive to COVID since 04/09, COVID restrictions release on 04/19. Reason for contiued inpatient stay Substantial Risk for: inability to function, rapid decompensation and med/psych decompensation Time Spent With Patient Time: Total time managing care of this patient today __20__ minutes.
[2022-05-02 19:30] VITALS: BP 145/80; PULSE 62; RESP 17; TEMP 36.5; O2SAT 97
[2022-05-02] MEDS: Donepezil HCl 10 MG TABLET PO (19:57)
[2022-05-02] MEDS: QUEtiapine Fumarate 50 MG TABLET PO (19:57)
[2022-05-02] MEDS: Divalproex Sodium 500 MG TABLET.DR PO (19:57)
[2022-05-02] MEDS: Melatonin 3 MG TABLET 6 MG PO (19:58)
[2022-05-03] MEDS: Levothyroxine Sodium 50 MCG TABLET PO (05:33)
[2022-05-03 06:00] VITALS: BP 129/62; PULSE 60; RESP 15; TEMP 36.2; O2SAT 95
[2022-05-03 07:00] VITALS: BMI 29.4
[2022-05-03] MEDS: amLODIPine Besylate 10 MG TABLET PO (10:10)
[2022-05-03] MEDS: Atorvastatin Calcium 80 MG TABLET PO (10:10)
[2022-05-03] MEDS: hydroCHLOROthiazide 25 MG TABLET PO (10:10)
[2022-05-03] MEDS: Sertraline HCL 50 MG TABLET PO (10:10)
[2022-05-03] MEDS: carvediloL 12.5 MG TABLET PO ×2 (10:11→20:45)
[2022-05-03] MEDS: Divalproex Sodium 250 MG TABLET.DR PO (10:11)
[2022-05-03] MEDS: Loratadine 10 MG TABLET PO (10:11)
--- NOTE | 2022-05-03 16:38 | HO.PSYCHPN ---
Subjective Subjective Date of Service: 05/03/22 Reason For Visit: depression, anxiety, alzheimers Subjective Notes: Conditional Voluntary Interim History: The nursing staff reported the patient had been compliant with treatment, no side effects. On interview the patient denies new symptoms she is waiting for placement. The family welfare social work professor reported that she was accepted at [facility] but is pending financial clearance for transfer. At this moment [facility] has an COVID outbreak and they are not accepting new patients Mental Status Exam Mental Status Exam Patient Appearance: Well Grooomed Patient Orientation: Person and Situation Level of Consciousness: Awake and Appropriate Patient Behavior: Cooperative Mood Description: Calm Affect Description: Constricted Patient Cognition Impaired: Yes Ability to Follow Directions: Good Speech Pattern: Clear Hallucinations: None Delusions: Not Present Thought Process: Linear Thought Content: positive for Circumstantial Judgement: Fair Diagnostics Vital Signs (24Hr): Vital Signs - 24 hr 05/02/22 19:30 05/03/22 06:00 Temperature 97.7 F 97.2 F Pulse Rate 62 60 Respiratory Rate 17 15 Blood Pressure 145/80 H 129/62 Pulse Oximetry 97 95 Oxygen Delivery Method Room Air Room Air BMI result Body Mass Index 29.5 Labs 02/28/22 07:59 03/05/22 07:44 Imaging Radiology Impressions: ITS Impressions Head CT 02/06/22 15:04 IMPRESSION: No acute intracranial hemorrhage or territorial infarction. Progressed moderate generalized parenchymal volume loss and mild to moderate chronic white matter microangiopathy. 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 Head CT 02/26/22 10:52 IMPRESSION: No acute intracranial hemorrhage or territorial infarction. Stable diffuse parenchymal volume loss and [id number] chronic white matter microangiopathy. Incompletely visualized moderate left maxillary sinus disease with chronic sclerotic wall thickening. 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 No evidence of acute territorial infarct. No intracranial mass effect or hydrocephalus. Medications Medications Current Medications Acetaminophen (Acetaminophen 325 Mg Tablet) 650 mg PO Q6H PRN PRN Reason: Headache/Pain Mild Scale (1-3) Last Admin: 04/18/22 20:34 Dose: 650 mg Al Hydroxide/Mg Hydroxide (Magnesium Hydrox/Alum Hydrox 30 Ml Oral.Susp) 30 ml PO Q6H PRN PRN Reason: Heartburn/Nausea Amlodipine Besylate (Amlodipine Besylate 10 Mg Tablet) 10 mg PO DAILY [facility]; Protocol Last Admin: 05/03/22 10:10 Dose: 10 mg Artificial Tears (Artificial Tears 15 Ml Drops) 1 drop EYE-BOTH Q4H PRN PRN Reason: dry eyes Last Admin: 03/12/22 21:03 Dose: 1 drop Atorvastatin Calcium (Atorvastatin Calcium 80 Mg Tablet) 80 mg PO DAILY [facility] Last Admin: 05/03/22 10:10 Dose: 80 mg Carvedilol (Carvedilol 12.5 Mg Tablet) 12.5 mg PO BID [facility]; Protocol Last Admin: 05/03/22 10:11 Dose: 12.5 mg Divalproex Sodium (Divalproex Sodium 250 Mg Tablet.Dr) 250 mg PO DAILY [facility] Last Admin: 05/03/22 10:11 Dose: 250 mg Divalproex Sodium (Divalproex Sodium 500 Mg Tablet.) 500 mg PO BEDTIME [facility] Last Admin: 05/02/22 19:57 Dose: 500 mg Donepezil HCl (Donepezil Hcl 10 Mg Tablet) 10 mg PO BEDTIME [facility] Last Admin: 05/02/22 19:57 Dose: 10 mg Guaifenesin/Dextromethorphan (Guaifenesin Dm 100/10/5 Ml 5 Ml Syrup) 10 ml PO Q4H PRN PRN Reason: cough Hydrochlorothiazide (Hydrochlorothiazide 25 Mg Tablet) 25 mg PO DAILY [facility]; Protocol Last Admin: 05/03/22 10:10 Dose: 25 mg Hydroxyzine HCl (Hydroxyzine Hcl 25 Mg Tablet) 25 mg PO Q6H PRN PRN Reason: Anxiety Last Admin: 03/27/22 20:27 Dose: 25 mg Levothyroxine Sodium (Levothyroxine Sodium 50 Mcg Tablet) 50 mcg PO DAILY@0600 [facility] Last Admin: 05/03/22 05:33 Dose: 50 mcg Loratadine (Loratadine 10 Mg Tablet) 10 mg PO DAILY [facility] Last Admin: 05/03/22 10:11 Dose: 10 mg Magnesium Hydroxide (Milk Of Magnesia 30 Ml Oral.Susp) 30 ml PO DAILY PRN PRN Reason: Constipation Melatonin (Melatonin 3 Mg Tablet) 6 mg PO BEDTIME [facility] Last Admin: 05/02/22 19:58 Dose: 6 mg Melatonin (Melatonin 3 Mg Tablet) 3 mg PO BEDTIME PRN PRN Reason: insomnia Last Admin: 03/29/22 20:21 Dose: 3 mg Nystatin (Nystatin Powder 15 Gm Bottle) 1 appl TOPICAL BID [facility]; Protocol Last Admin: 05/03/22 10:11 Dose: Not Given Polyethylene Glycol (Polyethylene Glycol 3350 17 Gm Powd.Pack) 17 gm PO DAILY PRN PRN Reason: constipation Quetiapine Fumarate (Quetiapine Fumarate 50 Mg Tablet) 50 mg PO BEDTIME [facility] Last Admin: 05/02/22 19:57 Dose: 50 mg Senna/Docusate Sodium (Sennosides/Docusate Sodium Tablet) 1 tab PO DAILY PRN PRN Reason: constipation Sertraline HCl (Sertraline Hcl 50 Mg Tablet) 50 mg PO DAILY [facility] Last Admin: 05/03/22 10:10 Dose: 50 mg Trazodone HCl (Trazodone Hcl 50 Mg Tablet) 50 mg PO BEDTIME PRN PRN Reason: Insomnia Last Admin: 04/27/22 21:41 Dose: 50 mg Allergies Allergies Allergy/AdvReac Type Severity Reaction Status Date / Time No Known Allergies Allergy Verified 02/05/22 21:09 Assessment & Plan Assessment & Plan (1) Dementia: Status: Acute Code(s): F03.90 - Unspecified dementia, unspecified severity, without behavioral disturbance, psychotic disturbance, mood disturbance, and anxiety Assessment and Plan: . (2) Bipolar disorder: Status: Acute Code(s): F31.9 - Bipolar disorder, unspecified Plan the patient is an elderly female with a past history of bipolar disorder, dementia Alzheimer's type for the last 6 months, admitted for recent exacerbation of psychosis and violent behavior.? Very poor historian unable to provide more information.? PLAN: 1. PT consult ordered 2.. Gather collateral information.? 3. Continue with regular medications.? 4. Discharge to assisted living facility Or halfway facility when ready 5. Increased Aricept to 10 mg p.o. q.h.s. on 02/15 6. Monitor BP 7. MRI and EEG ordered. We will follow the EEG results under was no seizure activity. 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 At this moment neurologically she is stable. 8. Continue recommendations of blood pressure medication as per hospitalist. 9. Waiting for placement. 10. Positive to COVID since 04/09, COVID restrictions release on 04/19. Reason for contiued inpatient stay Substantial Risk for: inability to function, rapid decompensation and med/psych decompensation Time Spent With Patient Time: Total time managing care of this patient today _20___ minutes.
[2022-05-03 18:00] VITALS: BP 127/63; PULSE 81; RESP 18; TEMP 36.8; O2SAT 96
[2022-05-03] MEDS: QUEtiapine Fumarate 50 MG TABLET PO (20:45)
[2022-05-03] MEDS: Melatonin 3 MG TABLET 6 MG PO (20:46)
[2022-05-03] MEDS: Donepezil HCl 10 MG TABLET PO (20:46)
[2022-05-03] MEDS: Divalproex Sodium 500 MG TABLET.DR PO (20:46)
[2022-05-04 06:00] VITALS: BP 120/67; PULSE 60; RESP 16; TEMP 36.2; O2SAT 98
[2022-05-04] MEDS: Levothyroxine Sodium 50 MCG TABLET PO (06:11)
[2022-05-04] MEDS: Sertraline HCL 50 MG TABLET PO (10:49)
[2022-05-04] MEDS: Atorvastatin Calcium 80 MG TABLET PO (10:50)
[2022-05-04] MEDS: amLODIPine Besylate 10 MG TABLET PO (10:50)
[2022-05-04] MEDS: carvediloL 12.5 MG TABLET PO ×2 (10:50→20:53)
[2022-05-04] MEDS: Divalproex Sodium 250 MG TABLET.DR PO (10:50)
[2022-05-04] MEDS: Loratadine 10 MG TABLET PO (10:50)
[2022-05-04] MEDS: hydroCHLOROthiazide 25 MG TABLET PO (10:50)
--- NOTE | 2022-05-04 13:45 | P.PNPSI_ITS ---
Subjective Subjective Date of Service: 05/04/22 Reason For Visit: depression, anxiety, alzheimers Subjective Notes: Conditional Voluntary Interim History: The nursing staff reported the patient had been fully compliant with treatment come, cooperative. The occupational therapist reported that she attends to groups and she participates actively. The social work associate reported the shelter facility are screening her for financial clearance. On interview the patient denies new symptoms, waiting for placement. Mental Status Exam Mental Status Exam Patient Appearance: Well Grooomed and Appropriate Patient Orientation: Person and Situation Level of Consciousness: Awake and Appropriate Patient Behavior: Cooperative and Passive Mood Description: Withdrawn Affect Description: Constricted Patient Cognition Impaired: Yes Ability to Follow Directions: Good Speech Pattern: Clear Hallucinations: None Delusions: Not Present Thought Process: Linear Thought Content: positive for Circumstantial Judgement: Fair Diagnostics Vital Signs (24Hr): Vital Signs - 24 hr 05/03/22 18:00 05/04/22 06:00 Temperature 98.2 F 97.1 F Pulse Rate 81 60 Respiratory Rate 18 16 Blood Pressure 127/63 120/67 Pulse Oximetry 96 98 Oxygen Delivery Method Room Air Room Air BMI result Body Mass Index 29.5 Labs 02/28/22 07:59 03/05/22 07:44 Imaging Radiology Impressions: ITS Impressions Head CT 02/06/22 15:04 IMPRESSION: No acute intracranial hemorrhage or territorial infarction. Progressed moderate generalized parenchymal volume loss and mild to moderate chronic white matter microangiopathy. 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 Head CT 02/26/22 10:52 IMPRESSION: No acute intracranial hemorrhage or territorial infarction. Stable diffuse parenchymal volume loss and knma-if-whvjguua chronic white matter microangiopathy. Incompletely visualized moderate left maxillary sinus disease with chronic sclerotic wall thickening. 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 No evidence of acute territorial infarct. No intracranial mass effect or hydrocephalus. Medications Medications Current Medications Acetaminophen (Acetaminophen 325 Mg Tablet) 650 mg PO Q6H PRN PRN Reason: Headache/Pain Mild Scale (1-3) Last Admin: 04/18/22 20:34 Dose: 650 mg Al Hydroxide/Mg Hydroxide (Magnesium Hydrox/Alum Hydrox 30 Ml Oral.Susp) 30 ml PO Q6H PRN PRN Reason: Heartburn/Nausea Amlodipine Besylate (Amlodipine Besylate 10 Mg Tablet) 10 mg PO DAILY [facility]; Protocol Last Admin: 05/04/22 10:50 Dose: 10 mg Artificial Tears (Artificial Tears 15 Ml Drops) 1 drop EYE-BOTH Q4H PRN PRN Reason: dry eyes Last Admin: 03/12/22 21:03 Dose: 1 drop Atorvastatin Calcium (Atorvastatin Calcium 80 Mg Tablet) 80 mg PO DAILY [facility] Last Admin: 05/04/22 10:50 Dose: 80 mg Carvedilol (Carvedilol 12.5 Mg Tablet) 12.5 mg PO BID [facility]; Protocol Last Admin: 05/04/22 10:50 Dose: 12.5 mg Divalproex Sodium (Divalproex Sodium 250 Mg Tablet.Dr) 250 mg PO DAILY [facility] Last Admin: 05/04/22 10:50 Dose: 250 mg Divalproex Sodium (Divalproex Sodium 500 Mg Tablet.) 500 mg PO BEDTIME [facility] Last Admin: 05/03/22 20:46 Dose: 500 mg Donepezil HCl (Donepezil Hcl 10 Mg Tablet) 10 mg PO BEDTIME [facility] Last Admin: 05/03/22 20:46 Dose: 10 mg Guaifenesin/Dextromethorphan (Guaifenesin Dm 100/10/5 Ml 5 Ml Syrup) 10 ml PO Q4H PRN PRN Reason: cough Hydrochlorothiazide (Hydrochlorothiazide 25 Mg Tablet) 25 mg PO DAILY [facility]; Protocol Last Admin: 05/04/22 10:50 Dose: 25 mg Hydroxyzine HCl (Hydroxyzine Hcl 25 Mg Tablet) 25 mg PO Q6H PRN PRN Reason: Anxiety Last Admin: 03/27/22 20:27 Dose: 25 mg Levothyroxine Sodium (Levothyroxine Sodium 50 Mcg Tablet) 50 mcg PO DAILY@0600 [facility] Last Admin: 05/04/22 06:11 Dose: 50 mcg Loratadine (Loratadine 10 Mg Tablet) 10 mg PO DAILY [facility] Last Admin: 05/04/22 10:50 Dose: 10 mg Magnesium Hydroxide (Milk Of Magnesia 30 Ml Oral.Susp) 30 ml PO DAILY PRN PRN Reason: Constipation Melatonin (Melatonin 3 Mg Tablet) 6 mg PO BEDTIME [facility] Last Admin: 05/03/22 20:46 Dose: 6 mg Melatonin (Melatonin 3 Mg Tablet) 3 mg PO BEDTIME PRN PRN Reason: insomnia Last Admin: 03/29/22 20:21 Dose: 3 mg Nystatin (Nystatin Powder 15 Gm Bottle) 1 appl TOPICAL BID [facility]; Protocol Last Admin: 05/04/22 10:52 Dose: Not Given Polyethylene Glycol (Polyethylene Glycol 3350 17 Gm Powd.Pack) 17 gm PO DAILY PRN PRN Reason: constipation Quetiapine Fumarate (Quetiapine Fumarate 50 Mg Tablet) 50 mg PO BEDTIME [facility] Last Admin: 05/03/22 20:45 Dose: 50 mg Senna/Docusate Sodium (Sennosides/Docusate Sodium Tablet) 1 tab PO DAILY PRN PRN Reason: constipation Sertraline HCl (Sertraline Hcl 50 Mg Tablet) 50 mg PO DAILY [facility] Last Admin: 05/04/22 10:49 Dose: 50 mg Trazodone HCl (Trazodone Hcl 50 Mg Tablet) 50 mg PO BEDTIME PRN PRN Reason: Insomnia Last Admin: 04/27/22 21:41 Dose: 50 mg Allergies Allergies Allergy/AdvReac Type Severity Reaction Status Date / Time No Known Allergies Allergy Verified 02/05/22 21:09 Assessment & Plan Assessment & Plan (1) Dementia: Status: Acute Code(s): F03.90 - Unspecified dementia, unspecified severity, without behavioral disturbance, psychotic disturbance, mood disturbance, and anxiety Assessment and Plan: . (2) Bipolar disorder: Status: Acute Code(s): F31.9 - Bipolar disorder, unspecified Plan the patient is an elderly female with a past history of bipolar disorder, dementia Alzheimer's type for the last 6 months, admitted for recent exacerbation of psychosis and violent behavior.? Very poor historian unable to provide more information.? PLAN: 1. PT consult ordered 2.. Gather collateral information.? 3. Continue with regular medications.? 4. Discharge to assisted living facility Or shelter facility when ready 5. Increased Aricept to 10 mg p.o. q.h.s. on 02/15 6. Monitor BP 7. MRI and EEG ordered. We will follow the EEG results under was no seizure activity. 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 At this moment neurologically she is stable. 8. Continue recommendations of blood pressure medication as per hospitalist. 9. Waiting for placement. 10. Positive to COVID since 04/09, COVID restrictions release on 04/19. Reason for contiued inpatient stay Substantial Risk for: inability to function, rapid decompensation and med/psych decompensation Time Spent With Patient Time: Total time managing care of this patient today _20___ minutes.
[2022-05-04 18:00] VITALS: BP 138/64; PULSE 66; RESP 18; TEMP 36.3; O2SAT 95
[2022-05-04] MEDS: QUEtiapine Fumarate 50 MG TABLET PO (20:53)
[2022-05-04] MEDS: Melatonin 3 MG TABLET 6 MG PO (20:53)
[2022-05-04] MEDS: Donepezil HCl 10 MG TABLET PO (20:53)
[2022-05-04] MEDS: Divalproex Sodium 500 MG TABLET.DR PO (20:53)
[2022-05-05 06:00] VITALS: BP 162/81; PULSE 59; RESP 18; TEMP 36.2; O2SAT 93
[2022-05-05] MEDS: Levothyroxine Sodium 50 MCG TABLET PO (06:15)
[2022-05-05] MEDS: Sertraline HCL 50 MG TABLET PO (08:43)
[2022-05-05] MEDS: Divalproex Sodium 250 MG TABLET.DR PO (08:43)
[2022-05-05] MEDS: hydroCHLOROthiazide 25 MG TABLET PO (08:43)
[2022-05-05] MEDS: Atorvastatin Calcium 80 MG TABLET PO (08:43)
[2022-05-05] MEDS: carvediloL 12.5 MG TABLET PO ×2 (08:43→21:22)
[2022-05-05] MEDS: Loratadine 10 MG TABLET PO (08:43)
[2022-05-05] MEDS: amLODIPine Besylate 10 MG TABLET PO (08:43)
[2022-05-05] MEDS: Nystatin Powder 15 GM BOTTLE 1 APPL TOPICAL (10:41)
--- NOTE | 2022-05-05 17:12 | P.PNPSI_ITS ---
Subjective Subjective Date of Service: 05/05/22 Reason For Visit: depression, anxiety, alzheimers Interim History: met with patient. Discussed with Nursing and chart reviewed. Overall engage well on the unit. Awaiting long-term care. With singer songwriter reports that she feels good. Feels that she is being well treated. Feels that she has made some friends here. Aware that long-term care is being pursued. Otherwise unclear around time frame in the hospital, rationale for being in the hospital etc. Medication Compliance: Yes Side effects from medications: No Attending Groups: Yes Review of Systems Acute medical concerns: No Review of Systems Review of Systems Yes all other systems are reviewed and are negative Mental Status Exam Mental Status Exam Narrative: Pleasant. Engaged. Appropriately dressed. Aware of where she is staff and setting etc. Difficulty with timeframe and admission circumstances. Aware that [facility] level of care being pursued. No evidence of depression, SI HI or psychosis. Insight and judgment appears fair currently Diagnostics Vital Signs (24Hr): Vital Signs - 24 hr 05/04/22 18:00 05/05/22 06:00 Temperature 97.3 F 97.1 F Pulse Rate 66 59 Respiratory Rate 18 18 Blood Pressure 138/64 162/81 H Pulse Oximetry 95 93 Oxygen Delivery Method Room Air Room Air BMI result Body Mass Index 29.4 Labs 02/28/22 07:59 03/05/22 07:44 Imaging Radiology Impressions: ITS Impressions Head CT 02/06/22 15:04 IMPRESSION: No acute intracranial hemorrhage or territorial infarction. Progressed moderate generalized parenchymal volume loss and mild to moderate chronic white matter microangiopathy. 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 Head CT 02/26/22 10:52 IMPRESSION: No acute intracranial hemorrhage or territorial infarction. Stable diffuse parenchymal volume loss and [id number] chronic white matter microangiopathy. Incompletely visualized moderate left maxillary sinus disease with chronic sclerotic wall thickening. 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 No evidence of acute territorial infarct. No intracranial mass effect or hydrocephalus. Medications Medications Current Medications Acetaminophen (Acetaminophen 325 Mg Tablet) 650 mg PO Q6H PRN PRN Reason: Headache/Pain Mild Scale (1-3) Last Admin: 04/18/22 20:34 Dose: 650 mg Al Hydroxide/Mg Hydroxide (Magnesium Hydrox/Alum Hydrox 30 Ml Oral.Susp) 30 ml PO Q6H PRN PRN Reason: Heartburn/Nausea Amlodipine Besylate (Amlodipine Besylate 10 Mg Tablet) 10 mg PO DAILY [facility]; Protocol Last Admin: 05/05/22 08:43 Dose: 10 mg Artificial Tears (Artificial Tears 15 Ml Drops) 1 drop EYE-BOTH Q4H PRN PRN Reason: dry eyes Last Admin: 03/12/22 21:03 Dose: 1 drop Atorvastatin Calcium (Atorvastatin Calcium 80 Mg Tablet) 80 mg PO DAILY [facility] Last Admin: 05/05/22 08:43 Dose: 80 mg Carvedilol (Carvedilol 12.5 Mg Tablet) 12.5 mg PO BID [facility]; Protocol Last Admin: 05/05/22 08:43 Dose: 12.5 mg Divalproex Sodium (Divalproex Sodium 250 Mg Tablet.) 250 mg PO DAILY [facility] Last Admin: 05/05/22 08:43 Dose: 250 mg Divalproex Sodium (Divalproex Sodium 500 Mg Tablet.) 500 mg PO BEDTIME [facility] Last Admin: 05/04/22 20:53 Dose: 500 mg Donepezil HCl (Donepezil Hcl 10 Mg Tablet) 10 mg PO BEDTIME [facility] Last Admin: 05/04/22 20:53 Dose: 10 mg Guaifenesin/Dextromethorphan (Guaifenesin Dm 100/10/5 Ml 5 Ml Syrup) 10 ml PO Q4H PRN PRN Reason: cough Hydrochlorothiazide (Hydrochlorothiazide 25 Mg Tablet) 25 mg PO DAILY [facility]; Protocol Last Admin: 05/05/22 08:43 Dose: 25 mg Hydroxyzine HCl (Hydroxyzine Hcl 25 Mg Tablet) 25 mg PO Q6H PRN PRN Reason: Anxiety Last Admin: 03/27/22 20:27 Dose: 25 mg Levothyroxine Sodium (Levothyroxine Sodium 50 Mcg Tablet) 50 mcg PO DAILY@0600 [facility] Last Admin: 05/05/22 06:15 Dose: 50 mcg Loratadine (Loratadine 10 Mg Tablet) 10 mg PO DAILY [facility] Last Admin: 05/05/22 08:43 Dose: 10 mg Magnesium Hydroxide (Milk Of Magnesia 30 Ml Oral.Susp) 30 ml PO DAILY PRN PRN Reason: Constipation Melatonin (Melatonin 3 Mg Tablet) 6 mg PO BEDTIME [facility] Last Admin: 05/04/22 20:53 Dose: 6 mg Melatonin (Melatonin 3 Mg Tablet) 3 mg PO BEDTIME PRN PRN Reason: insomnia Last Admin: 03/29/22 20:21 Dose: 3 mg Nystatin (Nystatin Powder 15 Gm Bottle) 1 appl TOPICAL BID [facility]; Protocol Last Admin: 05/05/22 10:41 Dose: 1 appl Polyethylene Glycol (Polyethylene Glycol 3350 17 Gm Powd.Pack) 17 gm PO DAILY PRN PRN Reason: constipation Quetiapine Fumarate (Quetiapine Fumarate 50 Mg Tablet) 50 mg PO BEDTIME [facility] Last Admin: 05/04/22 20:53 Dose: 50 mg Senna/Docusate Sodium (Sennosides/Docusate Sodium Tablet) 1 tab PO DAILY PRN PRN Reason: constipation Sertraline HCl (Sertraline Hcl 50 Mg Tablet) 50 mg PO DAILY [facility] Last Admin: 05/05/22 08:43 Dose: 50 mg Trazodone HCl (Trazodone Hcl 50 Mg Tablet) 50 mg PO BEDTIME PRN PRN Reason: Insomnia Last Admin: 04/27/22 21:41 Dose: 50 mg Allergies Allergies Allergy/AdvReac Type Severity Reaction Status Date / Time No Known Allergies Allergy Verified 02/05/22 21:09 Assessment & Plan Assessment & Plan (1) Dementia: Status: Acute Code(s): F03.90 - Unspecified dementia, unspecified severity, without behavioral disturbance, psychotic disturbance, mood disturbance, and anxiety Assessment and Plan: . (2) Bipolar disorder: Status: Acute Code(s): F31.9 - Bipolar disorder, unspecified Plan the patient is an elderly female with a past history of bipolar disorder, dementia Alzheimer's type for the last 6 months, admitted for recent exacerbation of psychosis and violent behavior.? Very poor historian unable to provide more information.? PLAN: 1. PT consult ordered 2.. Gather collateral information.? 3. Continue with regular medications.? 4. Discharge to assisted living facility Or [facility] facility when ready 5. Increased Aricept to 10 mg p.o. q.h.s. on 02/15 6. Monitor BP 7. MRI and EEG ordered. We will follow the EEG results under was no seizure activity. 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 At this moment neurologically she is stable. 8. Continue recommendations of blood pressure medication as per hospitalist. 9. Waiting for placement. 10. Positive to COVID since 04/09, COVID restrictions release on 04/19. 05/05/2022: No changes to current treatment plan Reason for contiued inpatient stay Substantial Risk for: inability to function Time Spent With Patient Time: Total time managing care of this patient today ____ minutes.
[2022-05-05 18:00] VITALS: BP 147/78; PULSE 70; RESP 16; TEMP 36.3; O2SAT 96
[2022-05-05] MEDS: Donepezil HCl 10 MG TABLET PO (21:22)
[2022-05-05] MEDS: QUEtiapine Fumarate 50 MG TABLET PO (21:22)
[2022-05-05] MEDS: Melatonin 3 MG TABLET 6 MG PO (21:24)
[2022-05-05] MEDS: Divalproex Sodium 500 MG TABLET.DR PO (21:24)
[2022-05-05] MEDS: Acetaminophen 325 MG TABLET 650 MG PO (21:27)
[2022-05-06] MEDS: Levothyroxine Sodium 50 MCG TABLET PO (05:41)
[2022-05-06 06:00] VITALS: BP 142/76; PULSE 57; RESP 14; TEMP 36.7; O2SAT 96
[2022-05-06] MEDS: Loratadine 10 MG TABLET PO (08:50)
[2022-05-06] MEDS: hydroCHLOROthiazide 25 MG TABLET PO (08:50)
[2022-05-06] MEDS: Sertraline HCL 50 MG TABLET PO (08:51)
[2022-05-06] MEDS: Nystatin Powder 15 GM BOTTLE 1 APPL TOPICAL (08:51)
[2022-05-06] MEDS: carvediloL 12.5 MG TABLET PO ×2 (08:51→20:36)
[2022-05-06] MEDS: Divalproex Sodium 250 MG TABLET.DR PO (08:51)
[2022-05-06] MEDS: Atorvastatin Calcium 80 MG TABLET PO (08:51)
[2022-05-06] MEDS: amLODIPine Besylate 10 MG TABLET PO (08:51)
--- NOTE | 2022-05-06 12:38 | HO.PSYCHPN ---
Subjective Subjective Date of Service: 05/06/22 Reason For Visit: depression, anxiety, alzheimers Interim History: Met with patient. Discussed with Nursing and chart reviewed. Overall engaged well on the unit. Awaiting long-term care. 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 Getting on well with new room mate. Sleeping well. Aware that long-term care is being pursued. Otherwise unclear around time frame in the hospital, rationale for being in the hospital etc. Medication Compliance: Yes Side effects from medications: No Attending Groups: Intermittent Review of Systems Acute medical concerns: No Review of Systems Review of Systems Yes all other systems are reviewed and are negative Mental Status Exam Mental Status Exam Narrative: Pleasant. Engaged. Appropriately dressed. Aware of where she is staff and setting etc. Difficulty with timeframe and admission circumstances. Aware that residential level of care being pursued. No evidence of depression, SI HI or psychosis. Insight and judgment appears fair currently Diagnostics Vital Signs (24Hr): Vital Signs - 24 hr 05/05/22 18:00 05/06/22 06:00 Temperature 97.3 F 98.0 F Pulse Rate 70 57 Respiratory Rate 16 14 Blood Pressure 147/78 H 142/76 H Pulse Oximetry 96 96 Oxygen Delivery Method Room Air Room Air BMI result Body Mass Index 29.4 Labs 02/28/22 07:59 03/05/22 07:44 Imaging Radiology Impressions: ITS Impressions Head CT 02/06/22 15:04 IMPRESSION: No acute intracranial hemorrhage or territorial infarction. Progressed moderate generalized parenchymal volume loss and mild to moderate chronic white matter microangiopathy. 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 Head CT 02/26/22 10:52 IMPRESSION: No acute intracranial hemorrhage or territorial infarction. Stable diffuse parenchymal volume loss and [id number]-[id number] chronic white matter microangiopathy. Incompletely visualized moderate left maxillary sinus disease with chronic sclerotic wall thickening. 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 No evidence of acute territorial infarct. No intracranial mass effect or hydrocephalus. Medications Medications Current Medications Acetaminophen (Acetaminophen 325 Mg Tablet) 650 mg PO Q6H PRN PRN Reason: Headache/Pain Mild Scale (1-3) Last Admin: 05/05/22 21:27 Dose: 650 mg Al Hydroxide/Mg Hydroxide (Magnesium Hydrox/Alum Hydrox 30 Ml Oral.Susp) 30 ml PO Q6H PRN PRN Reason: Heartburn/Nausea Amlodipine Besylate (Amlodipine Besylate 10 Mg Tablet) 10 mg PO DAILY [facility]; Protocol Last Admin: 05/06/22 08:51 Dose: 10 mg Artificial Tears (Artificial Tears 15 Ml Drops) 1 drop EYE-BOTH Q4H PRN PRN Reason: dry eyes Last Admin: 03/12/22 21:03 Dose: 1 drop Atorvastatin Calcium (Atorvastatin Calcium 80 Mg Tablet) 80 mg PO DAILY [facility] Last Admin: 05/06/22 08:51 Dose: 80 mg Carvedilol (Carvedilol 12.5 Mg Tablet) 12.5 mg PO BID [facility]; Protocol Last Admin: 05/06/22 08:51 Dose: 12.5 mg Divalproex Sodium (Divalproex Sodium 250 Mg Tablet.) 250 mg PO DAILY [facility] Last Admin: 05/06/22 08:51 Dose: 250 mg Divalproex Sodium (Divalproex Sodium 500 Mg Tablet.) 500 mg PO BEDTIME [facility] Last Admin: 05/05/22 21:24 Dose: 500 mg Donepezil HCl (Donepezil Hcl 10 Mg Tablet) 10 mg PO BEDTIME [facility] Last Admin: 05/05/22 21:22 Dose: 10 mg Guaifenesin/Dextromethorphan (Guaifenesin Dm 100/10/5 Ml 5 Ml Syrup) 10 ml PO Q4H PRN PRN Reason: cough Hydrochlorothiazide (Hydrochlorothiazide 25 Mg Tablet) 25 mg PO DAILY [facility]; Protocol Last Admin: 05/06/22 08:50 Dose: 25 mg Hydroxyzine HCl (Hydroxyzine Hcl 25 Mg Tablet) 25 mg PO Q6H PRN PRN Reason: Anxiety Last Admin: 03/27/22 20:27 Dose: 25 mg Levothyroxine Sodium (Levothyroxine Sodium 50 Mcg Tablet) 50 mcg PO DAILY@0600 [facility] Last Admin: 05/06/22 05:41 Dose: 50 mcg Loratadine (Loratadine 10 Mg Tablet) 10 mg PO DAILY [facility] Last Admin: 05/06/22 08:50 Dose: 10 mg Magnesium Hydroxide (Milk Of Magnesia 30 Ml Oral.Susp) 30 ml PO DAILY PRN PRN Reason: Constipation Melatonin (Melatonin 3 Mg Tablet) 6 mg PO BEDTIME [facility] Last Admin: 05/05/22 21:24 Dose: 6 mg Melatonin (Melatonin 3 Mg Tablet) 3 mg PO BEDTIME PRN PRN Reason: insomnia Last Admin: 03/29/22 20:21 Dose: 3 mg Nystatin (Nystatin Powder 15 Gm Bottle) 1 appl TOPICAL BID [facility]; Protocol Last Admin: 05/06/22 08:51 Dose: 1 appl Polyethylene Glycol (Polyethylene Glycol 3350 17 Gm Powd.Pack) 17 gm PO DAILY PRN PRN Reason: constipation Quetiapine Fumarate (Quetiapine Fumarate 50 Mg Tablet) 50 mg PO BEDTIME [facility] Last Admin: 05/05/22 21:22 Dose: 50 mg Senna/Docusate Sodium (Sennosides/Docusate Sodium Tablet) 1 tab PO DAILY PRN PRN Reason: constipation Sertraline HCl (Sertraline Hcl 50 Mg Tablet) 50 mg PO DAILY [facility] Last Admin: 05/06/22 08:51 Dose: 50 mg Trazodone HCl (Trazodone Hcl 50 Mg Tablet) 50 mg PO BEDTIME PRN PRN Reason: Insomnia Last Admin: 04/27/22 21:41 Dose: 50 mg Allergies Allergies Allergy/AdvReac Type Severity Reaction Status Date / Time No Known Allergies Allergy Verified 02/05/22 21:09 Assessment & Plan Assessment & Plan (1) Dementia: Status: Acute Code(s): F03.90 - Unspecified dementia, unspecified severity, without behavioral disturbance, psychotic disturbance, mood disturbance, and anxiety Assessment and Plan: . (2) Bipolar disorder: Status: Acute Code(s): F31.9 - Bipolar disorder, unspecified Plan the patient is an elderly female with a past history of bipolar disorder, dementia Alzheimer's type for the last 6 months, admitted for recent exacerbation of psychosis and violent behavior.? Very poor historian unable to provide more information.? PLAN: 1. PT consult ordered 2.. Gather collateral information.? 3. Continue with regular medications.? 4. Discharge to assisted living facility Or [facility] facility when ready 5. Increased Aricept to 10 mg p.o. q.h.s. on 02/15 6. Monitor BP 7. MRI and EEG ordered. We will follow the EEG results under was no seizure activity. 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 At this moment neurologically she is stable. 8. Continue recommendations of blood pressure medication as per hospitalist. 9. Waiting for placement. 10. Positive to COVID since 04/09, COVID restrictions release on 04/19. 05/06/2022: No changes to current treatment plan Reason for contiued inpatient stay Substantial Risk for: inability to function Time Spent With Patient Time: Total time managing care of this patient today ____ minutes.
[2022-05-06 18:00] VITALS: BP 146/79; PULSE 63; RESP 16; TEMP 36.2; O2SAT 95
[2022-05-06] MEDS: Donepezil HCl 10 MG TABLET PO (20:36)
[2022-05-06] MEDS: Melatonin 3 MG TABLET 6 MG PO (20:36)
[2022-05-06] MEDS: QUEtiapine Fumarate 50 MG TABLET PO (20:36)
[2022-05-06] MEDS: Divalproex Sodium 500 MG TABLET.DR PO (20:36)
[2022-05-07] MEDS: Levothyroxine Sodium 50 MCG TABLET PO (05:40)
[2022-05-07 06:00] VITALS: BP 141/82; PULSE 62; RESP 18; TEMP 36.4; O2SAT 92
[2022-05-07] MEDS: amLODIPine Besylate 10 MG TABLET PO (08:46)
[2022-05-07] MEDS: hydroCHLOROthiazide 25 MG TABLET PO (08:46)
[2022-05-07] MEDS: Atorvastatin Calcium 80 MG TABLET PO (08:47)
[2022-05-07] MEDS: Loratadine 10 MG TABLET PO (08:47)
[2022-05-07] MEDS: Sertraline HCL 50 MG TABLET PO (08:47)
[2022-05-07] MEDS: Divalproex Sodium 250 MG TABLET.DR PO (08:47)
--- NOTE | 2022-05-07 15:25 | HO.PSYCHPN ---
Subjective Subjective Date of Service: 05/07/22 Reason For Visit: depression, anxiety, alzheimers Subjective Notes: Conditional Voluntary Interim History: The nursing staff reported the patient had been fully compliant with treatment no new symptoms. On interview the patient denies new symptoms, waiting for placement. Mental Status Exam Mental Status Exam Patient Appearance: Well Grooomed Patient Orientation: Person and Situation Level of Consciousness: Awake and Appropriate Patient Behavior: Guarded and Passive Mood Description: Calm Affect Description: Constricted Patient Cognition Impaired: Yes Ability to Follow Directions: Good Speech Pattern: Clear Hallucinations: None Delusions: Not Present Thought Process: Linear Thought Content: positive for Circumstantial Judgement: Fair Diagnostics Vital Signs (24Hr): Vital Signs - 24 hr 05/06/22 18:00 05/07/22 06:00 Temperature 97.1 F 97.5 F Pulse Rate 63 62 Respiratory Rate 16 18 Blood Pressure 146/79 H 141/82 H Pulse Oximetry 95 92 Oxygen Delivery Method Room Air Room Air BMI result Body Mass Index 29.4 Labs 02/28/22 07:59 03/05/22 07:44 Imaging Radiology Impressions: ITS Impressions Head CT 02/06/22 15:04 IMPRESSION: No acute intracranial hemorrhage or territorial infarction. Progressed moderate generalized parenchymal volume loss and mild to moderate chronic white matter microangiopathy. 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 Head CT 02/26/22 10:52 IMPRESSION: No acute intracranial hemorrhage or territorial infarction. Stable diffuse parenchymal volume loss and [id number] chronic white matter microangiopathy. Incompletely visualized moderate left maxillary sinus disease with chronic sclerotic wall thickening. 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 No evidence of acute territorial infarct. No intracranial mass effect or hydrocephalus. Medications Medications Current Medications Amlodipine Besylate (Amlodipine Besylate 10 Mg Tablet) 10 mg PO DAILY [facility]; Protocol Last Admin: 05/07/22 08:46 Dose: 10 mg Donepezil HCl (Donepezil Hcl 10 Mg Tablet) 10 mg PO BEDTIME [facility] Last Admin: 05/06/22 20:36 Dose: 10 mg Hydrochlorothiazide (Hydrochlorothiazide 25 Mg Tablet) 25 mg PO DAILY [facility]; Protocol Last Admin: 05/07/22 08:46 Dose: 25 mg Loratadine (Loratadine 10 Mg Tablet) 10 mg PO DAILY [facility] Last Admin: 05/07/22 08:47 Dose: 10 mg Nystatin (Nystatin Powder 15 Gm Bottle) 1 appl TOPICAL BID [facility]; Protocol Last Admin: 05/07/22 09:12 Dose: Not Given Allergies Allergies Allergy/AdvReac Type Severity Reaction Status Date / Time No Known Allergies Allergy Verified 02/05/22 21:09 Assessment & Plan Assessment & Plan (1) Dementia: Status: Acute Code(s): F03.90 - Unspecified dementia, unspecified severity, without behavioral disturbance, psychotic disturbance, mood disturbance, and anxiety Assessment and Plan: . (2) Bipolar disorder: Status: Acute Code(s): F31.9 - Bipolar disorder, unspecified Plan the patient is an elderly female with a past history of bipolar disorder, dementia Alzheimer's type for the last 6 months, admitted for recent exacerbation of psychosis and violent behavior.? Very poor historian unable to provide more information.? PLAN: 1. PT consult ordered 2.. Gather collateral information.? 3. Continue with regular medications.? 4. Discharge to assisted living facility Or long-term facility when ready 5. Increased Aricept to 10 mg p.o. q.h.s. on 02/15 6. Monitor BP 7. MRI and EEG ordered. We will follow the EEG results under was no seizure activity. 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 At this moment neurologically she is stable. 8. Continue recommendations of blood pressure medication as per hospitalist. 9. Waiting for placement. 10. Positive to COVID since 04/09, COVID restrictions release on 04/19. Reason for contiued inpatient stay Substantial Risk for: inability to function, rapid decompensation and med/psych decompensation Time Spent With Patient Time: Total time managing care of this patient today __20__ minutes.
[2022-05-07 18:00] VITALS: BP 149/75; PULSE 60; RESP 16; TEMP 36.3; O2SAT 98
[2022-05-07] MEDS: Donepezil HCl 10 MG TABLET PO (19:55)
[2022-05-08] MEDS: carvediloL 12.5 MG TABLET PO ×3 (00:54→20:25)
[2022-05-08] MEDS: Divalproex Sodium 500 MG TABLET.DR PO ×2 (00:55→20:25)
[2022-05-08] MEDS: Levothyroxine Sodium 50 MCG TABLET PO (05:36)
[2022-05-08 07:30] VITALS: BP 140/67; PULSE 59; RESP 18; TEMP 36.6; O2SAT 96
[2022-05-08] MEDS: hydroCHLOROthiazide 25 MG TABLET PO (10:54)
[2022-05-08] MEDS: Loratadine 10 MG TABLET PO (10:55)
[2022-05-08] MEDS: amLODIPine Besylate 10 MG TABLET PO (10:55)
[2022-05-08] MEDS: Sertraline HCL 50 MG TABLET PO (10:55)
[2022-05-08] MEDS: Atorvastatin Calcium 80 MG TABLET PO (10:56)
[2022-05-08] MEDS: Divalproex Sodium 250 MG TABLET.DR PO (10:56)
--- NOTE | 2022-05-08 15:16 | HO.PSYCHPN ---
Subjective Subjective Date of Service: 05/08/22 Reason For Visit: depression, anxiety, alzheimers Subjective Notes: Conditional Voluntary Interim History: The nursing staff reported the patient had been fully compliant with treatment, she is pleasant and cooperative. We review her chart and his blood work was over a month so we will recheck her levels. The social contact worker reported the [facility] has accepted and they are working on the financial clearance. On interview the patient denies new symptoms, waiting for placement. Mental Status Exam Mental Status Exam Patient Appearance: Well Grooomed Patient Orientation: Person, Place and Situation Level of Consciousness: Awake and Appropriate Patient Behavior: Cooperative Mood Description: Calm Affect Description: Constricted Patient Cognition Impaired: Yes Ability to Follow Directions: Good Speech Pattern: Clear Hallucinations: None Delusions: Not Present Thought Process: Linear Thought Content: positive for Circumstantial Judgement: Fair Diagnostics Vital Signs (24Hr): Vital Signs - 24 hr 05/07/22 18:00 05/08/22 07:30 Temperature 97.4 F 97.9 F Pulse Rate 60 59 Respiratory Rate 16 18 Blood Pressure 149/75 H 140/67 H Pulse Oximetry 98 96 Oxygen Delivery Method Room Air Room Air BMI result Body Mass Index 29.4 Labs 02/28/22 07:59 03/05/22 07:44 Imaging Radiology Impressions: ITS Impressions Head CT 02/06/22 15:04 IMPRESSION: No acute intracranial hemorrhage or territorial infarction. Progressed moderate generalized parenchymal volume loss and mild to moderate chronic white matter microangiopathy. 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 Head CT 02/26/22 10:52 IMPRESSION: No acute intracranial hemorrhage or territorial infarction. Stable diffuse parenchymal volume loss and [id number] chronic white matter microangiopathy. Incompletely visualized moderate left maxillary sinus disease with chronic sclerotic wall thickening. 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 No evidence of acute territorial infarct. No intracranial mass effect or hydrocephalus. Medications Medications Current Medications Acetaminophen (Acetaminophen 325 Mg Tablet) 650 mg PO Q6H PRN PRN Reason: Headache/Pain Mild Scale (1-3) Al Hydroxide/Mg Hydroxide (Magnesium Hydrox/Alum Hydrox 30 Ml Oral.Susp) 30 ml PO Q6H PRN PRN Reason: Heartburn/Nausea Amlodipine Besylate (Amlodipine Besylate 10 Mg Tablet) 10 mg PO DAILY [facility]; Protocol Last Admin: 05/08/22 10:55 Dose: 10 mg Artificial Tears (Artificial Tears 15 Ml Drops) 1 drop EYE-BOTH Q4H PRN PRN Reason: dry eyes Atorvastatin Calcium (Atorvastatin Calcium 80 Mg Tablet) 80 mg PO DAILY [facility] Last Admin: 05/08/22 10:56 Dose: 80 mg Carvedilol (Carvedilol 12.5 Mg Tablet) 12.5 mg PO BID [facility]; Protocol Last Admin: 05/08/22 10:54 Dose: 12.5 mg Divalproex Sodium (Divalproex Sodium 250 Mg Tablet.) 250 mg PO DAILY [facility] Last Admin: 05/08/22 10:56 Dose: 250 mg Divalproex Sodium (Divalproex Sodium 500 Mg Tablet.) 500 mg PO BEDTIME [facility] Last Admin: 05/08/22 00:55 Dose: 500 mg Donepezil HCl (Donepezil Hcl 10 Mg Tablet) 10 mg PO BEDTIME [facility] Last Admin: 05/07/22 19:55 Dose: 10 mg Guaifenesin/Dextromethorphan (Guaifenesin Dm 100/10/5 Ml 5 Ml Syrup) 10 ml PO Q4H PRN PRN Reason: cough Hydrochlorothiazide (Hydrochlorothiazide 25 Mg Tablet) 25 mg PO DAILY [facility]; Protocol Last Admin: 05/08/22 10:54 Dose: 25 mg Hydroxyzine HCl (Hydroxyzine Hcl 25 Mg Tablet) 25 mg PO Q6H PRN PRN Reason: Anxiety Levothyroxine Sodium (Levothyroxine Sodium 50 Mcg Tablet) 50 mcg PO DAILY@0600 [facility] Last Admin: 05/08/22 05:36 Dose: 50 mcg Loratadine (Loratadine 10 Mg Tablet) 10 mg PO DAILY [facility] Last Admin: 05/08/22 10:55 Dose: 10 mg Magnesium Hydroxide (Milk Of Magnesia 30 Ml Oral.Susp) 30 ml PO DAILY PRN PRN Reason: Constipation Melatonin (Melatonin 3 Mg Tablet) 6 mg PO BEDTIME [facility] Last Admin: 05/08/22 00:56 Dose: Not Given Nystatin (Nystatin Powder 15 Gm Bottle) 1 appl TOPICAL BID [facility]; Protocol Last Admin: 05/07/22 19:56 Dose: Not Given Polyethylene Glycol (Polyethylene Glycol 3350 17 Gm Powd.Pack) 17 gm PO DAILY PRN PRN Reason: constipation Quetiapine Fumarate (Quetiapine Fumarate 50 Mg Tablet) 50 mg PO BEDTIME [facility] Last Admin: 05/08/22 00:55 Dose: Not Given Senna/Docusate Sodium (Sennosides/Docusate Sodium Tablet) 1 tab PO DAILY PRN PRN Reason: constipation Sertraline HCl (Sertraline Hcl 50 Mg Tablet) 50 mg PO DAILY [facility] Last Admin: 05/08/22 10:55 Dose: 50 mg Trazodone HCl (Trazodone Hcl 50 Mg Tablet) 50 mg PO BEDTIME PRN PRN Reason: Insomnia Allergies Allergies Allergy/AdvReac Type Severity Reaction Status Date / Time No Known Allergies Allergy Verified 02/05/22 21:09 Assessment & Plan Assessment & Plan (1) Dementia: Status: Acute Code(s): F03.90 - Unspecified dementia, unspecified severity, without behavioral disturbance, psychotic disturbance, mood disturbance, and anxiety Assessment and Plan: . (2) Bipolar disorder: Status: Acute Code(s): F31.9 - Bipolar disorder, unspecified Plan the patient is an elderly female with a past history of bipolar disorder, dementia Alzheimer's type for the last 6 months, admitted for recent exacerbation of psychosis and violent behavior.? Very poor historian unable to provide more information.? PLAN: 1. PT consult ordered 2.. Gather collateral information.? 3. Continue with regular medications.? 4. Discharge to assisted living facility Or snf facility when ready 5. Increased Aricept to 10 mg p.o. q.h.s. on 02/15 6. Monitor BP 7. MRI and EEG ordered. We will follow the EEG results under was no seizure activity. 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 At this moment neurologically she is stable. 8. Continue recommendations of blood pressure medication as per hospitalist. 9. Waiting for placement. 10. Positive to COVID since 04/09, COVID restrictions release on 04/19. 11. Blood work with Depakote level and other regular test ordered for May 09 fasting. Reason for contiued inpatient stay Substantial Risk for: inability to function, rapid decompensation and med/psych decompensation Time Spent With Patient Time: Total time managing care of this patient today __20__ minutes.
[2022-05-08 18:00] VITALS: BP 146/72; PULSE 72; RESP 18; TEMP 36.3; O2SAT 93
[2022-05-08] MEDS: Melatonin 3 MG TABLET 6 MG PO (20:24)
[2022-05-08] MEDS: QUEtiapine Fumarate 50 MG TABLET PO (20:25)
[2022-05-08] MEDS: Donepezil HCl 10 MG TABLET PO (20:25)
[2022-05-09 06:00] VITALS: BP 149/71; PULSE 58; RESP 18; TEMP 36.6; O2SAT 95
[2022-05-09] MEDS: Levothyroxine Sodium 50 MCG TABLET PO (06:41)
[2022-05-09 08:15] LABS: MANUAL DIFF FLAG NO
--- NOTE | 2022-05-09 08:17 | HO.PSYCHPN ---
Subjective Subjective Date of Service: 05/09/22 Reason For Visit: depression, anxiety, alzheimers Subjective Notes: Conditional Voluntary Interim History: The nursing staff reported the patient has been compliant with treatment, she slept well last night. On interview the patient denies new symptoms, she is waiting for placement. Mental Status Exam Mental Status Exam Patient Appearance: Well Grooomed and Appropriate Patient Orientation: Person, Place and Situation Level of Consciousness: Awake and Appropriate Patient Behavior: Cooperative Mood Description: Calm Affect Description: Constricted Patient Cognition Impaired: Yes Ability to Follow Directions: Good Speech Pattern: Clear Hallucinations: None Delusions: Not Present Thought Process: Linear Thought Content: positive for Circumstantial Judgement: Fair Diagnostics Vital Signs (24Hr): Vital Signs - 24 hr 05/08/22 18:00 Temperature 97.4 F Pulse Rate 72 Respiratory Rate 18 Blood Pressure 146/72 H Pulse Oximetry 93 Oxygen Delivery Method Room Air BMI result Body Mass Index 29.4 Labs 02/28/22 07:59 03/05/22 07:44 Imaging Radiology Impressions: ITS Impressions Head CT 02/06/22 15:04 IMPRESSION: No acute intracranial hemorrhage or territorial infarction. Progressed moderate generalized parenchymal volume loss and mild to moderate chronic white matter microangiopathy. 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 Head CT 02/26/22 10:52 IMPRESSION: No acute intracranial hemorrhage or territorial infarction. Stable diffuse parenchymal volume loss and [id number] chronic white matter microangiopathy. Incompletely visualized moderate left maxillary sinus disease with chronic sclerotic wall thickening. 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 No evidence of acute territorial infarct. No intracranial mass effect or hydrocephalus. Medications Medications Current Medications Acetaminophen (Acetaminophen 325 Mg Tablet) 650 mg PO Q6H PRN PRN Reason: Headache/Pain Mild Scale (1-3) Al Hydroxide/Mg Hydroxide (Magnesium Hydrox/Alum Hydrox 30 Ml Oral.Susp) 30 ml PO Q6H PRN PRN Reason: Heartburn/Nausea Amlodipine Besylate (Amlodipine Besylate 10 Mg Tablet) 10 mg PO DAILY [facility]; Protocol Last Admin: 05/08/22 10:55 Dose: 10 mg Artificial Tears (Artificial Tears 15 Ml Drops) 1 drop EYE-BOTH Q4H PRN PRN Reason: dry eyes Atorvastatin Calcium (Atorvastatin Calcium 80 Mg Tablet) 80 mg PO DAILY [facility] Last Admin: 05/08/22 10:56 Dose: 80 mg Carvedilol (Carvedilol 12.5 Mg Tablet) 12.5 mg PO BID [facility]; Protocol Last Admin: 05/08/22 20:25 Dose: 12.5 mg Divalproex Sodium (Divalproex Sodium 250 Mg Tablet.) 250 mg PO DAILY [facility] Last Admin: 05/08/22 10:56 Dose: 250 mg Divalproex Sodium (Divalproex Sodium 500 Mg Tablet.) 500 mg PO BEDTIME [facility] Last Admin: 05/08/22 20:25 Dose: 500 mg Donepezil HCl (Donepezil Hcl 10 Mg Tablet) 10 mg PO BEDTIME [facility] Last Admin: 05/08/22 20:25 Dose: 10 mg Guaifenesin/Dextromethorphan (Guaifenesin Dm 100/10/5 Ml 5 Ml Syrup) 10 ml PO Q4H PRN PRN Reason: cough Hydrochlorothiazide (Hydrochlorothiazide 25 Mg Tablet) 25 mg PO DAILY [facility]; Protocol Last Admin: 05/08/22 10:54 Dose: 25 mg Hydroxyzine HCl (Hydroxyzine Hcl 25 Mg Tablet) 25 mg PO Q6H PRN PRN Reason: Anxiety Levothyroxine Sodium (Levothyroxine Sodium 50 Mcg Tablet) 50 mcg PO DAILY@0600 [facility] Last Admin: 05/09/22 06:41 Dose: 50 mcg Loratadine (Loratadine 10 Mg Tablet) 10 mg PO DAILY [facility] Last Admin: 05/08/22 10:55 Dose: 10 mg Magnesium Hydroxide (Milk Of Magnesia 30 Ml Oral.Susp) 30 ml PO DAILY PRN PRN Reason: Constipation Melatonin (Melatonin 3 Mg Tablet) 6 mg PO BEDTIME [facility] Last Admin: 05/08/22 20:24 Dose: 6 mg Nystatin (Nystatin Powder 15 Gm Bottle) 1 appl TOPICAL BID [facility]; Protocol Last Admin: 05/08/22 23:28 Dose: Not Given Polyethylene Glycol (Polyethylene Glycol 3350 17 Gm Powd.Pack) 17 gm PO DAILY PRN PRN Reason: constipation Quetiapine Fumarate (Quetiapine Fumarate 50 Mg Tablet) 50 mg PO BEDTIME [facility] Last Admin: 05/08/22 20:25 Dose: 50 mg Senna/Docusate Sodium (Sennosides/Docusate Sodium Tablet) 1 tab PO DAILY PRN PRN Reason: constipation Sertraline HCl (Sertraline Hcl 50 Mg Tablet) 50 mg PO DAILY [facility] Last Admin: 05/08/22 10:55 Dose: 50 mg Trazodone HCl (Trazodone Hcl 50 Mg Tablet) 50 mg PO BEDTIME PRN PRN Reason: Insomnia Allergies Allergies Allergy/AdvReac Type Severity Reaction Status Date / Time No Known Allergies Allergy Verified 02/05/22 21:09 Assessment & Plan Assessment & Plan (1) Dementia: Status: Acute Code(s): F03.90 - Unspecified dementia, unspecified severity, without behavioral disturbance, psychotic disturbance, mood disturbance, and anxiety Assessment and Plan: . (2) Bipolar disorder: Status: Acute Code(s): F31.9 - Bipolar disorder, unspecified Plan the patient is an elderly female with a past history of bipolar disorder, dementia Alzheimer's type for the last 6 months, admitted for recent exacerbation of psychosis and violent behavior.? Very poor historian unable to provide more information.? PLAN: 1. PT consult ordered 2.. Gather collateral information.? 3. Continue with regular medications.? 4. Discharge to assisted living facility Or residential facility when ready 5. Increased Aricept to 10 mg p.o. q.h.s. on 02/15 6. Monitor BP 7. MRI and EEG ordered. We will follow the EEG results under was no seizure activity. 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 At this moment neurologically she is stable. 8. Continue recommendations of blood pressure medication as per hospitalist. 9. Waiting for placement. 10. Positive to COVID since 04/09, COVID restrictions release on 04/19. 11. Blood work with Depakote level and other regular test ordered for May 09 fasting. Reason for contiued inpatient stay Substantial Risk for: inability to function, rapid decompensation and med/psych decompensation Time Spent With Patient Time: Total time managing care of this patient today _20___ minutes.
[2022-05-09] MEDS: Sertraline HCL 50 MG TABLET PO (08:20)
[2022-05-09] MEDS: Atorvastatin Calcium 80 MG TABLET PO (08:20)
[2022-05-09] MEDS: amLODIPine Besylate 10 MG TABLET PO (08:20)
[2022-05-09] MEDS: hydroCHLOROthiazide 25 MG TABLET PO (08:20)
[2022-05-09] MEDS: Loratadine 10 MG TABLET PO (08:20)
[2022-05-09] MEDS: Divalproex Sodium 250 MG TABLET.DR PO (08:20)
[2022-05-09] MEDS: carvediloL 12.5 MG TABLET PO ×2 (08:20→20:09)
[2022-05-09 08:28] LABS: Estimated Average Glucose 123 mg/dL; Hemoglobin A1C 137.9403 umol/L; Hemoglobin A1c % 5.9 %
[2022-05-09 08:31] LABS: Basophils Percent Auto 0.8 % (0-2); Eosinophils Absolute Auto 0.2 X10*3/uL (0.0-0.4); Eosinophils Percent Auto 4.3 % (0-4); Hematocrit 38.2 % (37.0-47.0); Hemoglobin 12.7 g/dl (12.0-16.0); Imm Gran Abs Auto 0.04 X10*3/uL (0.00-0.03); Imm Gran Pct Auto 0.8 % (0.0-0.4); Lymphocytes Absolute Auto 1.4 X10*3/uL (1.2-4.9); Lymphocytes Percent Auto 29.1 % (20-40); Mean Corpuscular HGB Conc 33.2 g/dl (31.0-35.0); Mean Corpuscular Volume 90.1 fL (80.0-98.0); Mean Platelet Volume 9.5 fL (9.4-12.3); Monocytes Absolute Auto 0.7 X10*3/uL (0.1-1.2); Monocytes Percent Auto 15.2 % (2-11); Neutrophils Absolute Auto 2.4 x10*3/uL (2.0-8.3); Neutrophils Percent Auto 49.8 % (45-73); Platelet Count 146 X10*3/uL (160-400); Red Blood Count 4.24 X10*6/uL (4.20-5.50); Red Cell Distribution Width 13.5 % (11.0-16.0); White Blood Count 4.9 X10*3/uL (4.8-10.8)
[2022-05-09 08:45] LABS: Alanine Aminotransferase 15 U/L (0-31); Alkaline Phosphatase 69 U/L (39-117); Anion Gap 13 (12-20); Aspartate Amino Transferase 20 U/L (5-31); Bilirubin Direct < 0.2 mg/dL (0.0-0.5); Bilirubin Total 0.5 mg/dL (0.0-1.0); Blood Urea Nitrogen 26 mg/dL (9-16); Calcium 9.2 mg/dL (8.4-10.2); Carbon Dioxide 34 mmol/L (22-29); Chloride 99 mmol/L (96-108); Cholesterol 211 mg/dL; Creatinine Clr Calc Pharmacy 45.6; Estimated Glomerular Filt Rate 49; Glucose Random 108 mg/dL (60-115); HDL Cholesterol 51 mg/dL; LDL Cholesterol Calculated 133 mg/dl; Potassium 3.3 mmol/L (3.3-5.1); Sodium 143 mmol/L (135-145); Triglycerides 139 mg/dL
[2022-05-09 18:00] VITALS: BP 124/72; PULSE 60; RESP 18; TEMP 36.6; O2SAT 96
[2022-05-09] MEDS: Divalproex Sodium 500 MG TABLET.DR PO (20:09)
[2022-05-09] MEDS: Melatonin 3 MG TABLET 6 MG PO (20:09)
[2022-05-09] MEDS: QUEtiapine Fumarate 50 MG TABLET PO (20:09)
[2022-05-09] MEDS: Donepezil HCl 10 MG TABLET PO (20:09)
[2022-05-10] MEDS: Levothyroxine Sodium 50 MCG TABLET PO (05:33)
[2022-05-10 09:40] VITALS: BP 108/63; PULSE 60; RESP 18; TEMP 36.6; O2SAT 96
[2022-05-10] MEDS: amLODIPine Besylate 10 MG TABLET PO (09:52)
[2022-05-10] MEDS: carvediloL 12.5 MG TABLET PO ×2 (09:53→20:08)
[2022-05-10] MEDS: Atorvastatin Calcium 80 MG TABLET PO (09:53)
[2022-05-10] MEDS: Loratadine 10 MG TABLET PO (09:53)
[2022-05-10] MEDS: Sertraline HCL 50 MG TABLET PO (09:53)
[2022-05-10] MEDS: hydroCHLOROthiazide 25 MG TABLET PO (09:53)
[2022-05-10] MEDS: Divalproex Sodium 250 MG TABLET.DR PO (09:54)
[2022-05-10] MEDS: Nystatin Powder 15 GM BOTTLE 1 APPL TOPICAL ×2 (09:54→20:11)
--- NOTE | 2022-05-10 13:57 | P.PNPSI_ITS ---
Subjective Subjective Date of Service: 05/10/22 Reason For Visit: depression, anxiety, alzheimers Subjective Notes: Conditional Voluntary Interim History: The nursing staff reported the patient had been fully compliant with treatment no new symptoms. She was seen in the milieu attending to groups with no distress. On interview the patient denies new symptoms, waiting for placement. Mental Status Exam Mental Status Exam Patient Appearance: Well Grooomed Patient Orientation: Person and Situation Level of Consciousness: Awake and Appropriate Patient Behavior: Appropriate Mood Description: Calm Affect Description: Appropriate Patient Cognition Impaired: Yes Ability to Follow Directions: Good Speech Pattern: Clear Hallucinations: None Delusions: Not Present Thought Process: Illogical Thought Content: positive for [place] and positive for Circumstantial Judgement: Fair Diagnostics Vital Signs (24Hr): Vital Signs - 24 hr 05/09/22 18:00 05/10/22 09:40 Temperature 97.9 F 97.9 F Pulse Rate 60 60 Respiratory Rate 18 18 Blood Pressure 124/72 108/63 Pulse Oximetry 96 96 Oxygen Delivery Method Room Air Room Air BMI result Body Mass Index 30.0 Labs 05/09/22 08:02 05/09/22 08:02 Labs: Laboratory Results - last 48 hr 05/09/22 05/09/22 05/09/22 08:02 08:02 08:02 WBC 4.9 RBC 4.24 Hgb 12.7 Hct 38.2 MCV 90.1 MCH 30.0 MCHC 33.2 RDW 13.5 Plt Count 146 L MPV 9.5 Immature Gran % (Auto) 0.8 H Neut % (Auto) 49.8 Lymph % (Auto) 29.1 [place] % (Auto) 15.2 H Eos % (Auto) 4.3 H Baso % (Auto) 0.8 Lymph # (Auto) 1.4 [place] # (Auto) 0.7 Eos # (Auto) 0.2 Baso # (Auto) 0.0 Abs Immat Gran (auto) 0.04 H Absolute Neuts (auto) 2.4 Absolute Nucleated RBC 0.000 Nucleated RBC % (auto) 0.0 Sodium 143 Potassium 3.3 Chloride 99 Carbon Dioxide 34 H Anion Gap 13 BUN 26 H Creatinine 1.12 Estim Creat Clear Calc 45.6 Estimated GFR 49 Random Glucose 108 Estimat Average Glucose 123 Hemoglobin A1c % 5.9 Calcium 9.2 Total Bilirubin 0.5 Direct Bilirubin < 0.2 AST 20 ALT 15 Alkaline Phosphatase 69 Total Protein 7.0 Albumin 4.0 Triglycerides 139 Cholesterol 211 LDL Cholesterol, Calc 133 HDL Cholesterol 51 Valproic Acid 05/09/22 08:02 WBC RBC Hgb Hct MCV MCH MCHC RDW Plt Count MPV Immature Gran % (Auto) Neut % (Auto) Lymph % (Auto) [place] % (Auto) Eos % (Auto) Baso % (Auto) Lymph # (Auto) [place] # (Auto) Eos # (Auto) Baso # (Auto) Abs Immat Gran (auto) Absolute Neuts (auto) Absolute Nucleated RBC Nucleated RBC % (auto) Sodium Potassium Chloride Carbon Dioxide Anion Gap BUN Creatinine Estim Creat Clear Calc Estimated GFR Random Glucose Estimat Average Glucose Hemoglobin A1c % Calcium Total Bilirubin Direct Bilirubin AST ALT Alkaline Phosphatase Total Protein Albumin Triglycerides Cholesterol LDL Cholesterol, Calc HDL Cholesterol Valproic Acid 70.0 Imaging Radiology Impressions: ITS Impressions Head CT 02/06/22 15:04 IMPRESSION: No acute intracranial hemorrhage or territorial infarction. Progressed moderate generalized parenchymal volume loss and mild to moderate chronic white matter microangiopathy. 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 Head CT 02/26/22 10:52 IMPRESSION: No acute intracranial hemorrhage or territorial infarction. Stable diffuse parenchymal volume loss and [id number] chronic white matter microangiopathy. Incompletely visualized moderate left maxillary sinus disease with chronic sclerotic wall thickening. 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 No evidence of acute territorial infarct. No intracranial mass effect or hydrocephalus. Medications Medications Current Medications Acetaminophen (Acetaminophen 325 Mg Tablet) 650 mg PO Q6H PRN PRN Reason: Headache/Pain Mild Scale (1-3) Al Hydroxide/Mg Hydroxide (Magnesium Hydrox/Alum Hydrox 30 Ml Oral.Susp) 30 ml PO Q6H PRN PRN Reason: Heartburn/Nausea Amlodipine Besylate (Amlodipine Besylate 10 Mg Tablet) 10 mg PO DAILY KELY; P rotocol Last Admin: 05/10/22 09:52 Dose: 10 mg Artificial Tears (Artificial Tears 15 Ml Drops) 1 drop EYE-BOTH Q4H PRN PRN Reason: dry eyes Atorvastatin Calcium (Atorvastatin Calcium 80 Mg Tablet) 80 mg PO DAILY [facility] Last Admin: 05/10/22 09:53 Dose: 80 mg Carvedilol (Carvedilol 12.5 Mg Tablet) 12.5 mg PO BID [facility]; Protocol Last Admin: 05/10/22 09:53 Dose: 12.5 mg Divalproex Sodium (Divalproex Sodium 250 Mg Tablet.Dr) 250 mg PO DAILY [facility] Last Admin: 05/10/22 09:54 Dose: 250 mg Divalproex Sodium (Divalproex Sodium 500 Mg Tablet.) 500 mg PO BEDTIME [facility] Last Admin: 05/09/22 20:09 Dose: 500 mg Donepezil HCl (Donepezil Hcl 10 Mg Tablet) 10 mg PO BEDTIME [facility] Last Admin: 05/09/22 20:09 Dose: 10 mg Guaifenesin/Dextromethorphan (Guaifenesin Dm 100/10/5 Ml 5 Ml Syrup) 10 ml PO Q4H PRN PRN Reason: cough Hydrochlorothiazide (Hydrochlorothiazide 25 Mg Tablet) 25 mg PO DAILY [facility]; Protocol Last Admin: 05/10/22 09:53 Dose: 25 mg Hydroxyzine HCl (Hydroxyzine Hcl 25 Mg Tablet) 25 mg PO Q6H PRN PRN Reason: Anxiety Levothyroxine Sodium (Levothyroxine Sodium 50 Mcg Tablet) 50 mcg PO DAILY@0600 [facility] Last Admin: 05/10/22 05:33 Dose: 50 mcg Loratadine (Loratadine 10 Mg Tablet) 10 mg PO DAILY [facility] Last Admin: 05/10/22 09:53 Dose: 10 mg Magnesium Hydroxide (Milk Of Magnesia 30 Ml Oral.Susp) 30 ml PO DAILY PRN PRN Reason: Constipation Melatonin (Melatonin 3 Mg Tablet) 6 mg PO BEDTIME [facility] Last Admin: 05/09/22 20:09 Dose: 6 mg Nystatin (Nystatin Powder 15 Gm Bottle) 1 appl TOPICAL BID [facility]; Protocol Last Admin: 05/10/22 09:54 Dose: 1 appl Polyethylene Glycol (Polyethylene Glycol 3350 17 Gm Powd.Pack) 17 gm PO DAILY PRN PRN Reason: constipation Quetiapine Fumarate (Quetiapine Fumarate 50 Mg Tablet) 50 mg PO BEDTIME [facility] Last Admin: 05/09/22 20:09 Dose: 50 mg Senna/Docusate Sodium (Sennosides/Docusate Sodium Tablet) 1 tab PO DAILY PRN PRN Reason: constipation Sertraline HCl (Sertraline Hcl 50 Mg Tablet) 50 mg PO DAILY [facility] Last Admin: 05/10/22 09:53 Dose: 50 mg Trazodone HCl (Trazodone Hcl 50 Mg Tablet) 50 mg PO BEDTIME PRN PRN Reason: Insomnia Allergies Allergies Allergy/AdvReac Type Severity Reaction Status Date / Time No Known Allergies Allergy Verified 02/05/22 21:09 Assessment & Plan Assessment & Plan (1) Dementia: Status: Acute Code(s): F03.90 - Unspecified dementia, unspecified severity, without behavioral disturbance, psychotic disturbance, mood disturbance, and anxiety Assessment and Plan: . (2) Bipolar disorder: Status: Acute Code(s): F31.9 - Bipolar disorder, unspecified Plan the patient is an elderly female with a past history of bipolar disorder, dementia Alzheimer's type for the last 6 months, admitted for recent exacerbation of psychosis and violent behavior.? Very poor historian unable to provide more information.? PLAN: 1. PT consult ordered 2.. Gather collateral information.? 3. Continue with regular medications.? 4. Discharge to assisted living facility Or [facility] facility when ready 5. Increased Aricept to 10 mg p.o. q.h.s. on 02/15 6. Monitor BP 7. MRI and EEG ordered. We will follow the EEG results under was no seizure activity. 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 At this moment neurologically she is stable. 8. Continue recommendations of blood pressure medication as per hospitalist. 9. Waiting for placement. 10. Positive to COVID since 04/09, COVID restrictions release on 04/19. 11. Blood work with Depakote level and other regular test ordered for May 09 fasting. The results came back within normal limits Depakote level in the therapeutic range. Reason for contiued inpatient stay Substantial Risk for: inability to function, rapid decompensation and med/psych decompensation Time Spent With Patient Time: Total time managing care of this patient today __20__ minutes.
--- NOTE | 2022-05-10 14:04 | HO.PSYCHPN ---
Subjective Subjective Date of Service: 05/10/22 Reason For Visit: depression, anxiety, alzheimers Subjective Notes: Conditional Voluntary Diagnostics Vital Signs (24Hr): Vital Signs - 24 hr 05/09/22 18:00 05/10/22 09:40 Temperature 97.9 F 97.9 F Pulse Rate 60 60 Respiratory Rate 18 18 Blood Pressure 124/72 108/63 Pulse Oximetry 96 96 Oxygen Delivery Method Room Air Room Air BMI result Body Mass Index 30.0 Labs 05/09/22 08:02 05/09/22 08:02 Labs: Laboratory Results - last 48 hr 05/09/22 05/09/22 05/09/22 08:02 08:02 08:02 WBC 4.9 RBC 4.24 Hgb 12.7 Hct 38.2 MCV 90.1 MCH 30.0 MCHC 33.2 RDW 13.5 Plt Count 146 L MPV 9.5 Immature Gran % (Auto) 0.8 H Neut % (Auto) 49.8 Lymph % (Auto) 29.1 [place] % (Auto) 15.2 H Eos % (Auto) 4.3 H Baso % (Auto) 0.8 Lymph # (Auto) 1.4 [place] # (Auto) 0.7 Eos # (Auto) 0.2 Baso # (Auto) 0.0 Abs Immat Gran (auto) 0.04 H Absolute Neuts (auto) 2.4 Absolute Nucleated RBC 0.000 Nucleated RBC % (auto) 0.0 Sodium 143 Potassium 3.3 Chloride 99 Carbon Dioxide 34 H Anion Gap 13 BUN 26 H Creatinine 1.12 Estim Creat Clear Calc 45.6 Estimated GFR 49 Random Glucose 108 Estimat Average Glucose 123 Hemoglobin A1c % 5.9 Calcium 9.2 Total Bilirubin 0.5 Direct Bilirubin < 0.2 AST 20 ALT 15 Alkaline Phosphatase 69 Total Protein 7.0 Albumin 4.0 Triglycerides 139 Cholesterol 211 LDL Cholesterol, Calc 133 HDL Cholesterol 51 Valproic Acid 05/09/22 08:02 WBC RBC Hgb Hct MCV MCH MCHC RDW Plt Count MPV Immature Gran % (Auto) Neut % (Auto) Lymph % (Auto) [place] % (Auto) Eos % (Auto) Baso % (Auto) Lymph # (Auto) [place] # (Auto) Eos # (Auto) Baso # (Auto) Abs Immat Gran (auto) Absolute Neuts (auto) Absolute Nucleated RBC Nucleated RBC % (auto) Sodium Potassium Chloride Carbon Dioxide Anion Gap BUN Creatinine Estim Creat Clear Calc Estimated GFR Random Glucose Estimat Average Glucose Hemoglobin A1c % Calcium Total Bilirubin Direct Bilirubin AST ALT Alkaline Phosphatase Total Protein Albumin Triglycerides Cholesterol LDL Cholesterol, Calc HDL Cholesterol Valproic Acid 70.0 Imaging Radiology Impressions: ITS Impressions Head CT 02/06/22 15:04 IMPRESSION: No acute intracranial hemorrhage or territorial infarction. Progressed moderate generalized parenchymal volume loss and mild to moderate chronic white matter microangiopathy. 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 Head CT 02/26/22 10:52 IMPRESSION: No acute intracranial hemorrhage or territorial infarction. Stable diffuse parenchymal volume loss and [id number] chronic white matter microangiopathy. Incompletely visualized moderate left maxillary sinus disease with chronic sclerotic wall thickening. 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 No evidence of acute territorial infarct. No intracranial mass effect or hydrocephalus. Medications Medications Current Medications Acetaminophen (Acetaminophen 325 Mg Tablet) 650 mg PO Q6H PRN PRN Reason: Headache/Pain Mild Scale (1-3) Al Hydroxide/Mg Hydroxide (Magnesium Hydrox/Alum Hydrox 30 Ml Oral.Susp) 30 ml PO Q6H PRN PRN Reason: Heartburn/Nausea Amlodipine Besylate (Amlodipine Besylate 10 Mg Tablet) 10 mg PO DAILY [facility]; Protocol Last Admin: 05/10/22 09:52 Dose: 10 mg Artificial Tears (Artificial Tears 15 Ml Drops) 1 drop EYE-BOTH Q4H PRN PRN Reason: dry eyes Atorvastatin Calcium (Atorvastatin Calcium 80 Mg Tablet) 80 mg PO DAILY [facility] Last Admin: 05/10/22 09:53 Dose: 80 mg Carvedilol (Carvedilol 12.5 Mg Tablet) 12.5 mg PO BID [facility]; Protocol Last Admin: 05/10/22 09:53 Dose: 12.5 mg Divalproex Sodium (Divalproex Sodium 250 Mg Tablet.) 250 mg PO DAILY [facility] Last Admin: 05/10/22 09:54 Dose: 250 mg Divalproex Sodium (Divalproex Sodium 500 Mg Tablet.) 500 mg PO BEDTIME [facility] Last Admin: 05/09/22 20:09 Dose: 500 mg Donepezil HCl (Donepezil Hcl 10 Mg Tablet) 10 mg PO BEDTIME [facility] Last Admin: 05/09/22 20:09 Dose: 10 mg Guaifenesin/Dextromethorphan (Guaifenesin Dm 100/10/5 Ml 5 Ml Syrup) 10 ml PO Q4H PRN PRN Reason: cough Hydrochlorothiazide (Hydrochlorothiazide 25 Mg Tablet) 25 mg PO DAILY [facility]; Protocol Last Admin: 05/10/22 09:53 Dose: 25 mg Hydroxyzine HCl (Hydroxyzine Hcl 25 Mg Tablet) 25 mg PO Q6H PRN PRN Reason: Anxiety Levothyroxine Sodium (Levothyroxine Sodium 50 Mcg Tablet) 50 mcg PO DAILY@0600 [facility] Last Admin: 05/10/22 05:33 Dose: 50 mcg Loratadine (Loratadine 10 Mg Tablet) 10 mg PO DAILY [facility] Last Admin: 05/10/22 09:53 Dose: 10 mg Magnesium Hydroxide (Milk Of Magnesia 30 Ml Oral.Susp) 30 ml PO DAILY PRN PRN Reason: Constipation Melatonin (Melatonin 3 Mg Tablet) 6 mg PO BEDTIME [facility] Last Admin: 05/09/22 20:09 Dose: 6 mg Nystatin (Nystatin Powder 15 Gm Bottle) 1 appl TOPICAL BID [facility]; Protocol Last Admin: 05/10/22 09:54 Dose: 1 appl Polyethylene Glycol (Polyethylene Glycol 3350 17 Gm Powd.Pack) 17 gm PO DAILY PRN PRN Reason: constipation Quetiapine Fumarate (Quetiapine Fumarate 50 Mg Tablet) 50 mg PO BEDTIME [facility] Last Admin: 05/09/22 20:09 Dose: 50 mg Senna/Docusate Sodium (Sennosides/Docusate Sodium Tablet) 1 tab PO DAILY PRN PRN Reason: constipation Sertraline HCl (Sertraline Hcl 50 Mg Tablet) 50 mg PO DAILY [facility] Last Admin: 05/10/22 09:53 Dose: 50 mg Trazodone HCl (Trazodone Hcl 50 Mg Tablet) 50 mg PO BEDTIME PRN PRN Reason: Insomnia Allergies Allergies Allergy/AdvReac Type Severity Reaction Status Date / Time No Known Allergies Allergy Verified 02/05/22 21:09 Assessment & Plan Assessment & Plan (1) Dementia: Status: Acute Code(s): F03.90 - Unspecified dementia, unspecified severity, without behavioral disturbance, psychotic disturbance, mood disturbance, and anxiety Assessment and Plan: . (2) Bipolar disorder: Status: Acute Code(s): F31.9 - Bipolar disorder, unspecified Plan the patient is an elderly female with a past history of bipolar disorder, dementia Alzheimer's type for the last 6 months, admitted for recent exacerbation of psychosis and violent behavior.? Very poor historian unable to provide more information.? PLAN: 1. PT consult ordered 2.. Gather collateral information.? 3. Continue with regular medications.? 4. Discharge to assisted living facility Or correction facility when ready 5. Increased Aricept to 10 mg p.o. q.h.s. on 02/15 6. Monitor BP 7. MRI and EEG ordered. We will follow the EEG results under was no seizure activity. 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 At this moment neurologically she is stable. 8. Continue recommendations of blood pressure medication as per hospitalist. 9. Waiting for placement. 10. Positive to COVID since 04/09, COVID restrictions release on 04/19. 11. Blood work with Depakote level and other regular test ordered for May 09 fasting. The results came back within normal limits Depakote level in the therapeutic range. Time Spent With Patient Time: Total time managing care of this patient today ____ minutes.
[2022-05-10 18:00] VITALS: BP 115/70; PULSE 65; RESP 16; TEMP 36.8; O2SAT 95
[2022-05-10] MEDS: Divalproex Sodium 500 MG TABLET.DR PO (20:08)
[2022-05-10] MEDS: QUEtiapine Fumarate 50 MG TABLET PO (20:08)
[2022-05-10] MEDS: Melatonin 3 MG TABLET 6 MG PO (20:08)
[2022-05-10] MEDS: Donepezil HCl 10 MG TABLET PO (20:08)
[2022-05-11] MEDS: Levothyroxine Sodium 50 MCG TABLET PO (06:49)
[2022-05-11 08:00] VITALS: BP 131/66; PULSE 62; RESP 16; TEMP 36.7; O2SAT 98
[2022-05-11] MEDS: amLODIPine Besylate 10 MG TABLET PO (08:07)
[2022-05-11] MEDS: Sertraline HCL 50 MG TABLET PO (08:07)
[2022-05-11] MEDS: carvediloL 12.5 MG TABLET PO ×2 (08:08→20:06)
[2022-05-11] MEDS: Loratadine 10 MG TABLET PO (08:08)
[2022-05-11] MEDS: Atorvastatin Calcium 80 MG TABLET PO (08:08)
[2022-05-11] MEDS: Divalproex Sodium 250 MG TABLET.DR PO (08:08)
[2022-05-11] MEDS: hydroCHLOROthiazide 25 MG TABLET PO (08:09)
[2022-05-11] MEDS: Nystatin Powder 15 GM BOTTLE 1 APPL TOPICAL (08:10)
--- NOTE | 2022-05-11 14:35 | HO.PSYCHPN ---
Subjective Subjective Date of Service: 05/11/22 Reason For Visit: depression, anxiety, alzheimers Subjective Notes: Conditional Voluntary Interim History: The nursing staff reported the patient had been compliant with treatment no new symptoms. Her Depakote level came back on 70 and all his blood work was within normal limits. On interview the patient denies new symptoms, waiting for placement. Mental Status Exam Mental Status Exam Patient Appearance: Well Grooomed Patient Orientation: Person and Situation Level of Consciousness: Awake Patient Behavior: Cooperative Mood Description: Calm Affect Description: Relaxed Patient Cognition Impaired: Yes Ability to Follow Directions: Good Speech Pattern: Clear Hallucinations: None Delusions: Not Present Thought Process: Linear Thought Content: positive for [place] Judgement: Fair Diagnostics Vital Signs (24Hr): Vital Signs - 24 hr 05/10/22 18:00 05/11/22 08:00 Temperature 98.2 F 98.0 F Pulse Rate 65 62 Respiratory Rate 16 16 Blood Pressure 115/70 131/66 Pulse Oximetry 95 98 Oxygen Delivery Method Room Air Room Air BMI result Body Mass Index 30.0 Labs 05/09/22 08:02 05/09/22 08:02 Imaging Radiology Impressions: ITS Impressions Head CT 02/06/22 15:04 IMPRESSION: No acute intracranial hemorrhage or territorial infarction. Progressed moderate generalized parenchymal volume loss and mild to moderate chronic white matter microangiopathy. 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 Head CT 02/26/22 10:52 IMPRESSION: No acute intracranial hemorrhage or territorial infarction. Stable diffuse parenchymal volume loss and [id number] chronic white matter microangiopathy. Incompletely visualized moderate left maxillary sinus disease with chronic sclerotic wall thickening. 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 No evidence of acute territorial infarct. No intracranial mass effect or hydrocephalus. Medications Medications Current Medications Acetaminophen (Acetaminophen 325 Mg Tablet) 650 mg PO Q6H PRN PRN Reason: Headache/Pain Mild Scale (1-3) Al Hydroxide/Mg Hydroxide (Magnesium Hydrox/Alum Hydrox 30 Ml Oral.Susp) 30 ml PO Q6H PRN PRN Reason: Heartburn/Nausea Amlodipine Besylate (Amlodipine Besylate 10 Mg Tablet) 10 mg PO DAILY [facility]; Protocol Last Admin: 05/11/22 08:07 Dose: 10 mg Artificial Tears (Artificial Tears 15 Ml Drops) 1 drop EYE-BOTH Q4H PRN PRN Reason: dry eyes Atorvastatin Calcium (Atorvastatin Calcium 80 Mg Tablet) 80 mg PO DAILY [facility] Last Admin: 05/11/22 08:08 Dose: 80 mg Carvedilol (Carvedilol 12.5 Mg Tablet) 12.5 mg PO BID [facility]; Protocol Last Admin: 05/11/22 08:08 Dose: 12.5 mg Divalproex Sodium (Divalproex Sodium 250 Mg Tablet.Dr) 250 mg PO DAILY [facility] Last Admin: 05/11/22 08:08 Dose: 250 mg Divalproex Sodium (Divalproex Sodium 500 Mg Tablet.Dr) 500 mg PO BEDTIME [facility] Last Admin: 05/10/22 20:08 Dose: 500 mg Donepezil HCl (Donepezil Hcl 10 Mg Tablet) 10 mg PO BEDTIME [facility] Last Admin: 05/10/22 20:08 Dose: 10 mg Guaifenesin/Dextromethorphan (Guaifenesin Dm 100/10/5 Ml 5 Ml Syrup) 10 ml PO Q4H PRN PRN Reason: cough Hydrochlorothiazide (Hydrochlorothiazide 25 Mg Tablet) 25 mg PO DAILY [facility]; Protocol Last Admin: 05/11/22 08:09 Dose: 25 mg Hydroxyzine HCl (Hydroxyzine Hcl 25 Mg Tablet) 25 mg PO Q6H PRN PRN Reason: Anxiety Levothyroxine Sodium (Levothyroxine Sodium 50 Mcg Tablet) 50 mcg PO DAILY@0600 [facility] Last Admin: 05/11/22 06:49 Dose: 50 mcg Loratadine (Loratadine 10 Mg Tablet) 10 mg PO DAILY [facility] Last Admin: 05/11/22 08:08 Dose: 10 mg Magnesium Hydroxide (Milk Of Magnesia 30 Ml Oral.Susp) 30 ml PO DAILY PRN PRN Reason: Constipation Melatonin (Melatonin 3 Mg Tablet) 6 mg PO BEDTIME [facility] Last Admin: 05/10/22 20:08 Dose: 6 mg Nystatin (Nystatin Powder 15 Gm Bottle) 1 appl TOPICAL BID [facility]; Protocol Last Admin: 05/11/22 08:10 Dose: 1 appl Polyethylene Glycol (Polyethylene Glycol 3350 17 Gm Powd.Pack) 17 gm PO DAILY PRN PRN Reason: constipation Quetiapine Fumarate (Quetiapine Fumarate 50 Mg Tablet) 50 mg PO BEDTIME [facility] Last Admin: 05/10/22 20:08 Dose: 50 mg Senna/Docusate Sodium (Sennosides/Docusate Sodium Tablet) 1 tab PO DAILY PRN PRN Reason: constipation Sertraline HCl (Sertraline Hcl 50 Mg Tablet) 50 mg PO DAILY [facility] Last Admin: 05/11/22 08:07 Dose: 50 mg Trazodone HCl (Trazodone Hcl 50 Mg Tablet) 50 mg PO BEDTIME PRN PRN Reason: Insomnia Allergies Allergies Allergy/AdvReac Type Severity Reaction Status Date / Time No Known Allergies Allergy Verified 02/05/22 21:09 Assessment & Plan Assessment & Plan (1) Dementia: Status: Acute Code(s): F03.90 - Unspecified dementia, unspecified severity, without behavioral disturbance, psychotic disturbance, mood disturbance, and anxiety (2) Bipolar disorder: Status: Acute Code(s): F31.9 - Bipolar disorder, unspecified Plan The patient is a 66-year-old female, with a past history of bipolar disorder, admitted into this facility for violent behavior in the context of several psychosocial stressors. The patient had been stabilized on the current psychotropics, waiting for placement plan 1. Continue same treatment. 2. Waiting for placement Informed Consent: understands Reason for contiued inpatient stay Substantial Risk for: inability to function, rapid decompensation and med/psych decompensation Time Spent With Patient Time: Total time managing care of this patient today ___20_ minutes.
--- NOTE | 2022-05-11 14:44 | HO.PSYCHPN ---
Subjective Subjective Reason For Visit: depression, anxiety, alzheimers Diagnostics Vital Signs (24Hr): Vital Signs - 24 hr 05/10/22 18:00 05/11/22 08:00 Temperature 98.2 F 98.0 F Pulse Rate 65 62 Respiratory Rate 16 16 Blood Pressure 115/70 131/66 Pulse Oximetry 95 98 Oxygen Delivery Method Room Air Room Air BMI result Body Mass Index 30.0 Labs 05/09/22 08:02 05/09/22 08:02 Imaging Radiology Impressions: ITS Impressions Head CT 02/06/22 15:04 IMPRESSION: No acute intracranial hemorrhage or territorial infarction. Progressed moderate generalized parenchymal volume loss and mild to moderate chronic white matter microangiopathy. 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 Head CT 02/26/22 10:52 IMPRESSION: No acute intracranial hemorrhage or territorial infarction. Stable diffuse parenchymal volume loss and [id number] chronic white matter microangiopathy. Incompletely visualized moderate left maxillary sinus disease with chronic sclerotic wall thickening. 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 No evidence of acute territorial infarct. No intracranial mass effect or hydrocephalus. Medications Medications Current Medications Acetaminophen (Acetaminophen 325 Mg Tablet) 650 mg PO Q6H PRN PRN Reason: Headache/Pain Mild Scale (1-3) Al Hydroxide/Mg Hydroxide (Magnesium Hydrox/Alum Hydrox 30 Ml Oral.Susp) 30 ml PO Q6H PRN PRN Reason: Heartburn/Nausea Amlodipine Besylate (Amlodipine Besylate 10 Mg Tablet) 10 mg PO DAILY [facility]; Protocol Last Admin: 05/11/22 08:07 Dose: 10 mg Artificial Tears (Artificial Tears 15 Ml Drops) 1 drop EYE-BOTH Q4H PRN PRN Reason: dry eyes Atorvastatin Calcium (Atorvastatin Calcium 80 Mg Tablet) 80 mg PO DAILY [facility] Last Admin: 05/11/22 08:08 Dose: 80 mg Carvedilol (Carvedilol 12.5 Mg Tablet) 12.5 mg PO BID [facility]; Protocol Last Admin: 05/11/22 08:08 Dose: 12.5 mg Divalproex Sodium (Divalproex Sodium 250 Mg Tablet.) 250 mg PO DAILY [facility] Last Admin: 05/11/22 08:08 Dose: 250 mg Divalproex Sodium (Divalproex Sodium 500 Mg Tablet.Dr) 500 mg PO BEDTIME [facility] Last Admin: 05/10/22 20:08 Dose: 500 mg Donepezil HCl (Donepezil Hcl 10 Mg Tablet) 10 mg PO BEDTIME [facility] Last Admin: 05/10/22 20:08 Dose: 10 mg Guaifenesin/Dextromethorphan (Guaifenesin Dm 100/10/5 Ml 5 Ml Syrup) 10 ml PO Q4H PRN PRN Reason: cough Hydrochlorothiazide (Hydrochlorothiazide 25 Mg Tablet) 25 mg PO DAILY [facility]; Protocol Last Admin: 05/11/22 08:09 Dose: 25 mg Hydroxyzine HCl (Hydroxyzine Hcl 25 Mg Tablet) 25 mg PO Q6H PRN PRN Reason: Anxiety Levothyroxine Sodium (Levothyroxine Sodium 50 Mcg Tablet) 50 mcg PO DAILY@0600 [facility] Last Admin: 05/11/22 06:49 Dose: 50 mcg Loratadine (Loratadine 10 Mg Tablet) 10 mg PO DAILY [facility] Last Admin: 05/11/22 08:08 Dose: 10 mg Magnesium Hydroxide (Milk Of Magnesia 30 Ml Oral.Susp) 30 ml PO DAILY PRN PRN Reason: Constipation Melatonin (Melatonin 3 Mg Tablet) 6 mg PO BEDTIME [facility] Last Admin: 05/10/22 20:08 Dose: 6 mg Nystatin (Nystatin Powder 15 Gm Bottle) 1 appl TOPICAL BID [facility]; Protocol Last Admin: 05/11/22 08:10 Dose: 1 appl Polyethylene Glycol (Polyethylene Glycol 3350 17 Gm Powd.Pack) 17 gm PO DAILY PRN PRN Reason: constipation Quetiapine Fumarate (Quetiapine Fumarate 50 Mg Tablet) 50 mg PO BEDTIME [facility] Last Admin: 05/10/22 20:08 Dose: 50 mg Senna/Docusate Sodium (Sennosides/Docusate Sodium Tablet) 1 tab PO DAILY PRN PRN Reason: constipation Sertraline HCl (Sertraline Hcl 50 Mg Tablet) 50 mg PO DAILY [facility] Last Admin: 05/11/22 08:07 Dose: 50 mg Trazodone HCl (Trazodone Hcl 50 Mg Tablet) 50 mg PO BEDTIME PRN PRN Reason: Insomnia Allergies Allergies Allergy/AdvReac Type Severity Reaction Status Date / Time No Known Allergies Allergy Verified 02/05/22 21:09 Assessment & Plan Assessment & Plan (1) Dementia: Status: Acute Code(s): F03.90 - Unspecified dementia, unspecified severity, without behavioral disturbance, psychotic disturbance, mood disturbance, and anxiety (2) Bipolar disorder: Status: Acute Code(s): F31.9 - Bipolar disorder, unspecified Plan The patient is a 66-year-old female, with a past history of bipolar disorder, admitted into this facility for violent behavior in the context of several psychosocial stressors. The patient had been stabilized on the current psychotropics, waiting for placement plan 1. Continue same treatment. 2. Waiting for placement Time Spent With Patient Time: Total time managing care of this patient today ____ minutes.
[2022-05-11 18:00] VITALS: BP 143/74; PULSE 58; RESP 16; TEMP 36.3; O2SAT 97
[2022-05-11] MEDS: QUEtiapine Fumarate 50 MG TABLET PO (20:06)
[2022-05-11] MEDS: Donepezil HCl 10 MG TABLET PO (20:07)
[2022-05-11] MEDS: Melatonin 3 MG TABLET 6 MG PO (20:07)
[2022-05-11] MEDS: Divalproex Sodium 500 MG TABLET.DR PO (20:08)
[2022-05-12] MEDS: Levothyroxine Sodium 50 MCG TABLET PO (05:59)
[2022-05-12 06:00] VITALS: BP 137/63; PULSE 63; RESP 16; TEMP 36.3; O2SAT 94
[2022-05-12] MEDS: carvediloL 12.5 MG TABLET PO ×2 (09:19→20:17)
[2022-05-12] MEDS: hydroCHLOROthiazide 25 MG TABLET PO (09:19)
[2022-05-12] MEDS: Loratadine 10 MG TABLET PO (09:19)
[2022-05-12] MEDS: Sertraline HCL 50 MG TABLET PO (09:19)
[2022-05-12] MEDS: Atorvastatin Calcium 80 MG TABLET PO (09:19)
[2022-05-12] MEDS: Divalproex Sodium 250 MG TABLET.DR PO (09:19)
[2022-05-12] MEDS: amLODIPine Besylate 10 MG TABLET PO (09:19)
--- NOTE | 2022-05-12 11:39 | P.PNPSI_ITS ---
Subjective Subjective Date of Service: 05/12/22 Reason For Visit: depression, anxiety, alzheimers Subjective Notes: Conditional Voluntary Interim History: Patient was seen and discussed in rounds today. Records and plans were reviewed. She has been medication compliant. No complaints. Eating and sleeping adequately. No changes were made today Review of Systems Review of Systems Yes all other systems are reviewed and are negative Mental Status Exam Mental Status Exam Patient Appearance: Well Grooomed Patient Orientation: Person and Situation Level of Consciousness: Awake Patient Behavior: Cooperative Mood Description: Calm Affect Description: Relaxed Patient Cognition Impaired: Yes Ability to Follow Directions: Good Speech Pattern: Clear Hallucinations: None Delusions: Not Present Thought Process: Linear Thought Content: positive for Intact Judgement: Fair Diagnostics Vital Signs (24Hr): Vital Signs - 24 hr 05/11/22 18:00 05/12/22 06:00 Temperature 97.3 F 97.4 F Pulse Rate 58 63 Respiratory Rate 16 16 Blood Pressure 143/74 H 137/63 Pulse Oximetry 97 94 Oxygen Delivery Method Room Air Room Air BMI result Body Mass Index 30.0 Labs 05/09/22 08:02 05/09/22 08:02 Imaging Radiology Impressions: ITS Impressions Head CT 02/06/22 15:04 IMPRESSION: No acute intracranial hemorrhage or territorial infarction. Progressed moderate generalized parenchymal volume loss and mild to moderate chronic white matter microangiopathy. 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 Head CT 02/26/22 10:52 IMPRESSION: No acute intracranial hemorrhage or territorial infarction. Stable diffuse parenchymal volume loss and [id number] chronic white matter microangiopathy. Incompletely visualized moderate left maxillary sinus disease with chronic sclerotic wall thickening. 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 No evidence of acute territorial infarct. No intracranial mass effect or hydrocephalus. Medications Medications Current Medications Acetaminophen (Acetaminophen 325 Mg Tablet) 650 mg PO Q6H PRN PRN Reason: Headache/Pain Mild Scale (1-3) Al Hydroxide/Mg Hydroxide (Magnesium Hydrox/Alum Hydrox 30 Ml Oral.Susp) 30 ml PO Q6H PRN PRN Reason: Heartburn/Nausea Amlodipine Besylate (Amlodipine Besylate 10 Mg Tablet) 10 mg PO DAILY [facility]; Protocol Last Admin: 05/12/22 09:19 Dose: 10 mg Artificial Tears (Artificial Tears 15 Ml Drops) 1 drop EYE-BOTH Q4H PRN PRN Reason: dry eyes Atorvastatin Calcium (Atorvastatin Calcium 80 Mg Tablet) 80 mg PO DAILY [facility] Last Admin: 05/12/22 09:19 Dose: 80 mg Carvedilol (Carvedilol 12.5 Mg Tablet) 12.5 mg PO BID [facility]; Protocol Last Admin: 05/12/22 09:19 Dose: 12.5 mg Divalproex Sodium (Divalproex Sodium 250 Mg Tablet.Dr) 250 mg PO DAILY [facility] Last Admin: 05/12/22 09:19 Dose: 250 mg Divalproex Sodium (Divalproex Sodium 500 Mg Tablet.Dr) 500 mg PO BEDTIME [facility] Last Admin: 05/11/22 20:08 Dose: 500 mg Donepezil HCl (Donepezil Hcl 10 Mg Tablet) 10 mg PO BEDTIME [facility] Last Admin: 05/11/22 20:07 Dose: 10 mg Guaifenesin/Dextromethorphan (Guaifenesin Dm 100/10/5 Ml 5 Ml Syrup) 10 ml PO Q4H PRN PRN Reason: cough Hydrochlorothiazide (Hydrochlorothiazide 25 Mg Tablet) 25 mg PO DAILY [facility]; Protocol Last Admin: 05/12/22 09:19 Dose: 25 mg Hydroxyzine HCl (Hydroxyzine Hcl 25 Mg Tablet) 25 mg PO Q6H PRN PRN Reason: Anxiety Levothyroxine Sodium (Levothyroxine Sodium 50 Mcg Tablet) 50 mcg PO DAILY@0600 [facility] Last Admin: 05/12/22 05:59 Dose: 50 mcg Loratadine (Loratadine 10 Mg Tablet) 10 mg PO DAILY [facility] Last Admin: 05/12/22 09:19 Dose: 10 mg Magnesium Hydroxide (Milk Of Magnesia 30 Ml Oral.Susp) 30 ml PO DAILY PRN PRN Reason: Constipation Melatonin (Melatonin 3 Mg Tablet) 6 mg PO BEDTIME [facility] Last Admin: 05/11/22 20:07 Dose: 6 mg Nystatin (Nystatin Powder 15 Gm Bottle) 1 appl TOPICAL BID [facility]; Protocol Last Admin: 05/12/22 10:29 Dose: Not Given Polyethylene Glycol (Polyethylene Glycol 3350 17 Gm Powd.Pack) 17 gm PO DAILY PRN PRN Reason: constipation Quetiapine Fumarate (Quetiapine Fumarate 50 Mg Tablet) 50 mg PO BEDTIME [facility] Last Admin: 05/11/22 20:06 Dose: 50 mg Senna/Docusate Sodium (Sennosides/Docusate Sodium Tablet) 1 tab PO DAILY PRN PRN Reason: constipation Sertraline HCl (Sertraline Hcl 50 Mg Tablet) 50 mg PO DAILY [facility] Last Admin: 05/12/22 09:19 Dose: 50 mg Trazodone HCl (Trazodone Hcl 50 Mg Tablet) 50 mg PO BEDTIME PRN PRN Reason: Insomnia Allergies Allergies Allergy/AdvReac Type Severity Reaction Status Date / Time No Known Allergies Allergy Verified 02/05/22 21:09 Assessment & Plan Assessment & Plan (1) Dementia: Status: Acute Code(s): F03.90 - Unspecified dementia, unspecified severity, without behavioral disturbance, psychotic disturbance, mood disturbance, and anxiety (2) Bipolar disorder: Status: Acute Code(s): F31.9 - Bipolar disorder, unspecified Plan 05/12: Continue current regimen and plans Reason for contiued inpatient stay Substantial Risk for: inability to function Time Spent With Patient Time: Total time managing care of this patient today ____ minutes.
[2022-05-12 18:00] VITALS: BP 111/67; PULSE 63; RESP 16; TEMP 36.4; O2SAT 95
[2022-05-12] MEDS: Divalproex Sodium 500 MG TABLET.DR PO (20:17)
[2022-05-12] MEDS: Donepezil HCl 10 MG TABLET PO (20:17)
[2022-05-12] MEDS: QUEtiapine Fumarate 50 MG TABLET PO (20:18)
[2022-05-12] MEDS: Melatonin 3 MG TABLET 6 MG PO (20:18)
[2022-05-13] MEDS: Levothyroxine Sodium 50 MCG TABLET PO (05:24)
[2022-05-13 08:55] VITALS: BP 156/83; PULSE 66; RESP 18; TEMP 36.6; O2SAT 94
[2022-05-13] MEDS: Loratadine 10 MG TABLET PO (09:01)
[2022-05-13] MEDS: carvediloL 12.5 MG TABLET PO ×2 (09:02→22:01)
[2022-05-13] MEDS: Atorvastatin Calcium 80 MG TABLET PO (09:02)
[2022-05-13] MEDS: hydroCHLOROthiazide 25 MG TABLET PO (09:02)
[2022-05-13] MEDS: Divalproex Sodium 250 MG TABLET.DR PO (09:03)
[2022-05-13] MEDS: Sertraline HCL 50 MG TABLET PO (09:03)
[2022-05-13] MEDS: amLODIPine Besylate 10 MG TABLET PO (09:03)
--- NOTE | 2022-05-13 10:41 | P.PNPSI_ITS ---
Subjective Subjective Date of Service: 05/13/22 Reason For Visit: depression, anxiety, alzheimers Subjective Notes: Conditional Voluntary Interim History: Patient was seen and discussed in rounds today. Records and plans were reviewed. She is doing fairly well with no behavioral problems. Placement issues being entertained. She has been medication compliant. She is pleasant and cooperative. Eating and sleeping adequately. No changes were done today Medication Compliance: Yes Side effects from medications: No Review of Systems Review of Systems Yes all other systems are reviewed and are negative Mental Status Exam Mental Status Exam Patient Appearance: Well Grooomed Patient Orientation: Person and Situation Level of Consciousness: Awake Patient Behavior: Cooperative Mood Description: Calm Affect Description: Relaxed Patient Cognition Impaired: Yes Ability to Follow Directions: Good Speech Pattern: Clear Hallucinations: None Delusions: Not Present Thought Process: Linear Thought Content: positive for Intact Judgement: Fair Diagnostics Vital Signs (24Hr): Vital Signs - 24 hr 05/12/22 18:00 05/13/22 08:55 Temperature 97.6 F 97.8 F Pulse Rate 63 66 Respiratory Rate 16 18 Blood Pressure 111/67 156/83 H Pulse Oximetry 95 94 Oxygen Delivery Method Room Air Room Air BMI result Body Mass Index 30.0 Labs 05/09/22 08:02 05/09/22 08:02 Imaging Radiology Impressions: ITS Impressions Head CT 02/06/22 15:04 IMPRESSION: No acute intracranial hemorrhage or territorial infarction. Progressed moderate generalized parenchymal volume loss and mild to moderate chronic white matter microangiopathy. 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 Head CT 02/26/22 10:52 IMPRESSION: No acute intracranial hemorrhage or territorial infarction. Stable diffuse parenchymal volume loss and [id number] chronic white matter microangiopathy. Incompletely visualized moderate left maxillary sinus disease with chronic sclerotic wall thickening. 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 No evidence of acute territorial infarct. No intracranial mass effect or hydrocephalus. Medications Medications Current Medications Acetaminophen (Acetaminophen 325 Mg Tablet) 650 mg PO Q6H PRN PRN Reason: Headache/Pain Mild Scale (1-3) Al Hydroxide/Mg Hydroxide (Magnesium Hydrox/Alum Hydrox 30 Ml Oral.Susp) 30 ml PO Q6H PRN PRN Reason: Heartburn/Nausea Amlodipine Besylate (Amlodipine Besylate 10 Mg Tablet) 10 mg PO DAILY [facility]; Protocol Last Admin: 05/13/22 09:03 Dose: 10 mg Artificial Tears (Artificial Tears 15 Ml Drops) 1 drop EYE-BOTH Q4H PRN PRN Reason: dry eyes Atorvastatin Calcium (Atorvastatin Calcium 80 Mg Tablet) 80 mg PO DAILY [facility] Last Admin: 05/13/22 09:02 Dose: 80 mg Carvedilol (Carvedilol 12.5 Mg Tablet) 12.5 mg PO BID [facility]; Protocol Last Admin: 05/13/22 09:02 Dose: 12.5 mg Divalproex Sodium (Divalproex Sodium 250 Mg Tablet.) 250 mg PO DAILY [facility] Last Admin: 05/13/22 09:03 Dose: 250 mg Divalproex Sodium (Divalproex Sodium 500 Mg Tablet.) 500 mg PO BEDTIME [facility] Last Admin: 05/12/22 20:17 Dose: 500 mg Donepezil HCl (Donepezil Hcl 10 Mg Tablet) 10 mg PO BEDTIME [facility] Last Admin: 05/12/22 20:17 Dose: 10 mg Guaifenesin/Dextromethorphan (Guaifenesin Dm 100/10/5 Ml 5 Ml Syrup) 10 ml PO Q4H PRN PRN Reason: cough Hydrochlorothiazide (Hydrochlorothiazide 25 Mg Tablet) 25 mg PO DAILY [facility]; Protocol Last Admin: 05/13/22 09:02 Dose: 25 mg Hydroxyzine HCl (Hydroxyzine Hcl 25 Mg Tablet) 25 mg PO Q6H PRN PRN Reason: Anxiety Levothyroxine Sodium (Levothyroxine Sodium 50 Mcg Tablet) 50 mcg PO DAILY@0600 [facility] Last Admin: 05/13/22 05:24 Dose: 50 mcg Loratadine (Loratadine 10 Mg Tablet) 10 mg PO DAILY [facility] Last Admin: 05/13/22 09:01 Dose: 10 mg Magnesium Hydroxide (Milk Of Magnesia 30 Ml Oral.Susp) 30 ml PO DAILY PRN PRN Reason: Constipation Melatonin (Melatonin 3 Mg Tablet) 6 mg PO BEDTIME [facility] Last Admin: 05/12/22 20:18 Dose: 6 mg Nystatin (Nystatin Powder 15 Gm Bottle) 1 appl TOPICAL BID [facility]; Protocol Last Admin: 05/12/22 20:18 Dose: Not Given Polyethylene Glycol (Polyethylene Glycol 3350 17 Gm Powd.Pack) 17 gm PO DAILY PRN PRN Reason: constipation Quetiapine Fumarate (Quetiapine Fumarate 50 Mg Tablet) 50 mg PO BEDTIME [facility] Last Admin: 05/12/22 20:18 Dose: 50 mg Senna/Docusate Sodium (Sennosides/Docusate Sodium Tablet) 1 tab PO DAILY PRN PRN Reason: constipation Sertraline HCl (Sertraline Hcl 50 Mg Tablet) 50 mg PO DAILY [facility] Last Admin: 05/13/22 09:03 Dose: 50 mg Trazodone HCl (Trazodone Hcl 50 Mg Tablet) 50 mg PO BEDTIME PRN PRN Reason: Insomnia Allergies Allergies Allergy/AdvReac Type Severity Reaction Status Date / Time No Known Allergies Allergy Verified 02/05/22 21:09 Assessment & Plan Assessment & Plan (1) Dementia: Status: Acute Code(s): F03.90 - Unspecified dementia, unspecified severity, without behavioral disturbance, psychotic disturbance, mood disturbance, and anxiety (2) Bipolar disorder: Status: Acute Code(s): F31.9 - Bipolar disorder, unspecified Plan 05/12: Continue current regimen and plans 05/13: Continue current plans and regimen Reason for contiued inpatient stay Substantial Risk for: inability to function Time Spent With Patient Time: Total time managing care of this patient today ____ minutes.
[2022-05-13 18:00] VITALS: BP 121/67; PULSE 67; RESP 18; TEMP 36.6; O2SAT 94
[2022-05-13] MEDS: Donepezil HCl 10 MG TABLET PO (22:01)
[2022-05-13] MEDS: Divalproex Sodium 500 MG TABLET.DR PO (22:02)
[2022-05-13] MEDS: Nystatin Powder 15 GM BOTTLE 1 APPL TOPICAL (22:02)
[2022-05-13] MEDS: QUEtiapine Fumarate 50 MG TABLET PO (22:02)
[2022-05-13] MEDS: Melatonin 3 MG TABLET 6 MG PO (22:03)
[2022-05-14] MEDS: Levothyroxine Sodium 50 MCG TABLET PO (06:01)
[2022-05-14 08:00] VITALS: BP 144/66; PULSE 64; RESP 16; TEMP 36.4; O2SAT 96
[2022-05-14] MEDS: carvediloL 12.5 MG TABLET PO ×2 (08:08→21:02)
[2022-05-14] MEDS: Atorvastatin Calcium 80 MG TABLET PO (08:08)
[2022-05-14] MEDS: Loratadine 10 MG TABLET PO (08:09)
[2022-05-14] MEDS: amLODIPine Besylate 10 MG TABLET PO (08:09)
[2022-05-14] MEDS: Sertraline HCL 50 MG TABLET PO (08:09)
[2022-05-14] MEDS: Divalproex Sodium 250 MG TABLET.DR PO (08:09)
[2022-05-14] MEDS: Nystatin Powder 15 GM BOTTLE 1 APPL TOPICAL (08:10)
[2022-05-14] MEDS: hydroCHLOROthiazide 25 MG TABLET PO (08:10)
--- NOTE | 2022-05-14 14:24 | HO.PSYCHPN ---
Subjective Subjective Date of Service: 05/14/22 Reason For Visit: depression, anxiety, alzheimers Subjective Notes: Conditional Voluntary Interim History: The nursing staff reported the patient had been fully compliant with treatment, she slept only 3 hours last night. On interview the patient denies new symptoms, waiting for placement. Mental Status Exam Mental Status Exam Patient Appearance: Well Grooomed Patient Orientation: Person, Place and Situation Level of Consciousness: Awake and Appropriate Patient Behavior: Appropriate Mood Description: Calm Affect Description: Constricted Patient Cognition Impaired: Yes Ability to Follow Directions: Good Speech Pattern: Clear Hallucinations: None Delusions: Not Present Thought Process: Linear Thought Content: positive for Circumstantial Judgement: Fair Diagnostics Vital Signs (24Hr): Vital Signs - 24 hr 05/13/22 18:00 05/14/22 08:00 Temperature 97.8 F 97.6 F Pulse Rate 67 64 Respiratory Rate 18 16 Blood Pressure 121/67 144/66 H Pulse Oximetry 94 96 Oxygen Delivery Method Room Air Room Air BMI result Body Mass Index 30.0 Labs 05/09/22 08:02 05/09/22 08:02 Imaging Radiology Impressions: ITS Impressions Head CT 02/06/22 15:04 IMPRESSION: No acute intracranial hemorrhage or territorial infarction. Progressed moderate generalized parenchymal volume loss and mild to moderate chronic white matter microangiopathy. 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 Head CT 02/26/22 10:52 IMPRESSION: No acute intracranial hemorrhage or territorial infarction. Stable diffuse parenchymal volume loss and [id number] chronic white matter microangiopathy. Incompletely visualized moderate left maxillary sinus disease with chronic sclerotic wall thickening. 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 No evidence of acute territorial infarct. No intracranial mass effect or hydrocephalus. Medications Medications Current Medications Acetaminophen (Acetaminophen 325 Mg Tablet) 650 mg PO Q6H PRN PRN Reason: Headache/Pain Mild Scale (1-3) Al Hydroxide/Mg Hydroxide (Magnesium Hydrox/Alum Hydrox 30 Ml Oral.Susp) 30 ml PO Q6H PRN PRN Reason: Heartburn/Nausea Amlodipine Besylate (Amlodipine Besylate 10 Mg Tablet) 10 mg PO DAILY [facility]; Protocol Last Admin: 05/14/22 08:09 Dose: 10 mg Artificial Tears (Artificial Tears 15 Ml Drops) 1 drop EYE-BOTH Q4H PRN PRN Reason: dry eyes Atorvastatin Calcium (Atorvastatin Calcium 80 Mg Tablet) 80 mg PO DAILY [facility] Last Admin: 05/14/22 08:08 Dose: 80 mg Carvedilol (Carvedilol 12.5 Mg Tablet) 12.5 mg PO BID [facility]; Protocol Last Admin: 05/14/22 08:08 Dose: 12.5 mg Divalproex Sodium (Divalproex Sodium 250 Mg Tablet.) 250 mg PO DAILY [facility] Last Admin: 05/14/22 08:09 Dose: 250 mg Divalproex Sodium (Divalproex Sodium 500 Mg Tablet.Dr) 500 mg PO BEDTIME [facility] Last Admin: 05/13/22 22:02 Dose: 500 mg Donepezil HCl (Donepezil Hcl 10 Mg Tablet) 10 mg PO BEDTIME [facility] Last Admin: 05/13/22 22:01 Dose: 10 mg Guaifenesin/Dextromethorphan (Guaifenesin Dm 100/10/5 Ml 5 Ml Syrup) 10 ml PO Q4H PRN PRN Reason: cough Hydrochlorothiazide (Hydrochlorothiazide 25 Mg Tablet) 25 mg PO DAILY [facility]; Protocol Last Admin: 05/14/22 08:10 Dose: 25 mg Hydroxyzine HCl (Hydroxyzine Hcl 25 Mg Tablet) 25 mg PO Q6H PRN PRN Reason: Anxiety Levothyroxine Sodium (Levothyroxine Sodium 50 Mcg Tablet) 50 mcg PO DAILY@0600 [facility] Last Admin: 05/14/22 06:01 Dose: 50 mcg Loratadine (Loratadine 10 Mg Tablet) 10 mg PO DAILY [facility] Last Admin: 05/14/22 08:09 Dose: 10 mg Magnesium Hydroxide (Milk Of Magnesia 30 Ml Oral.Susp) 30 ml PO DAILY PRN PRN Reason: Constipation Melatonin (Melatonin 3 Mg Tablet) 6 mg PO BEDTIME [facility] Last Admin: 05/13/22 22:03 Dose: 6 mg Nystatin (Nystatin Powder 15 Gm Bottle) 1 appl TOPICAL BID [facility]; Protocol Last Admin: 05/14/22 08:10 Dose: 1 appl Polyethylene Glycol (Polyethylene Glycol 3350 17 Gm Powd.Pack) 17 gm PO DAILY PRN PRN Reason: constipation Quetiapine Fumarate (Quetiapine Fumarate 50 Mg Tablet) 50 mg PO BEDTIME [facility] Last Admin: 05/13/22 22:02 Dose: 50 mg Senna/Docusate Sodium (Sennosides/Docusate Sodium Tablet) 1 tab PO DAILY PRN PRN Reason: constipation Sertraline HCl (Sertraline Hcl 50 Mg Tablet) 50 mg PO DAILY [facility] Last Admin: 05/14/22 08:09 Dose: 50 mg Trazodone HCl (Trazodone Hcl 50 Mg Tablet) 50 mg PO BEDTIME PRN PRN Reason: Insomnia Allergies Allergies Allergy/AdvReac Type Severity Reaction Status Date / Time No Known Allergies Allergy Verified 02/05/22 21:09 Assessment & Plan Assessment & Plan (1) Dementia: Status: Acute Code(s): F03.90 - Unspecified dementia, unspecified severity, without behavioral disturbance, psychotic disturbance, mood disturbance, and anxiety (2) Bipolar disorder: Status: Acute Code(s): F31.9 - Bipolar disorder, unspecified Plan 05/12: Continue current regimen and plans 05/13: Continue current plans and regimen Reason for contiued inpatient stay Substantial Risk for: inability to function, rapid decompensation and med/psych decompensation Time Spent With Patient Time: Total time managing care of this patient today __20__ minutes.
[2022-05-14 18:00] VITALS: BP 146/71; PULSE 62; RESP 16; TEMP 36.1; O2SAT 95
[2022-05-14] MEDS: QUEtiapine Fumarate 50 MG TABLET PO (21:01)
[2022-05-14] MEDS: Donepezil HCl 10 MG TABLET PO (21:02)
[2022-05-14] MEDS: Melatonin 3 MG TABLET 6 MG PO (21:02)
[2022-05-14] MEDS: Divalproex Sodium 500 MG TABLET.DR PO (21:02)
[2022-05-15] MEDS: Levothyroxine Sodium 50 MCG TABLET PO (06:06)
[2022-05-15 07:40] VITALS: BP 132/70; PULSE 66; RESP 16; TEMP 36.4; O2SAT 99
[2022-05-15] MEDS: hydroCHLOROthiazide 25 MG TABLET PO (07:44)
[2022-05-15] MEDS: Sertraline HCL 50 MG TABLET PO (07:44)
[2022-05-15] MEDS: Divalproex Sodium 250 MG TABLET.DR PO (07:45)
[2022-05-15] MEDS: Loratadine 10 MG TABLET PO (07:45)
[2022-05-15] MEDS: Atorvastatin Calcium 80 MG TABLET PO (07:45)
[2022-05-15] MEDS: carvediloL 12.5 MG TABLET PO ×2 (07:45→20:58)
[2022-05-15] MEDS: amLODIPine Besylate 10 MG TABLET PO (07:46)
[2022-05-15] MEDS: Nystatin Powder 15 GM BOTTLE 1 APPL TOPICAL (07:46)
--- NOTE | 2022-05-15 12:30 | HO.PSYCHPN ---
Subjective Subjective Date of Service: 05/15/22 Reason For Visit: depression, anxiety, alzheimers Subjective Notes: Conditional Voluntary Interim History: The nursing staff reported the patient had been fully compliant with treatment no new symptoms. The social work assistant reported that [facility] will called today regarding the open bed for her. On interview the patient denies new symptoms, waiting for placement. Mental Status Exam Mental Status Exam Patient Appearance: Well Grooomed Patient Orientation: Person, Place and Situation Level of Consciousness: Awake and Appropriate Patient Behavior: Cooperative Mood Description: Calm Affect Description: Calm Patient Cognition Impaired: Yes Ability to Follow Directions: Good Speech Pattern: Clear Hallucinations: None Delusions: Not Present Thought Process: Linear Thought Content: positive for Circumstantial Judgement: Fair Diagnostics Vital Signs (24Hr): Vital Signs - 24 hr 05/14/22 18:00 05/15/22 07:40 Temperature 97.0 F 97.6 F Pulse Rate 62 66 Respiratory Rate 16 16 Blood Pressure 146/71 H 132/70 Pulse Oximetry 95 99 Oxygen Delivery Method Room Air Room Air BMI result Body Mass Index 30.0 Labs 05/09/22 08:02 05/09/22 08:02 Imaging Radiology Impressions: ITS Impressions Head CT 02/06/22 15:04 IMPRESSION: No acute intracranial hemorrhage or territorial infarction. Progressed moderate generalized parenchymal volume loss and mild to moderate chronic white matter microangiopathy. 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 Head CT 02/26/22 10:52 IMPRESSION: No acute intracranial hemorrhage or territorial infarction. Stable diffuse parenchymal volume loss and [id number] chronic white matter microangiopathy. Incompletely visualized moderate left maxillary sinus disease with chronic sclerotic wall thickening. 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 No evidence of acute territorial infarct. No intracranial mass effect or hydrocephalus. Medications Medications Current Medications Acetaminophen (Acetaminophen 325 Mg Tablet) 650 mg PO Q6H PRN PRN Reason: Headache/Pain Mild Scale (1-3) Al Hydroxide/Mg Hydroxide (Magnesium Hydrox/Alum Hydrox 30 Ml Oral.Susp) 30 ml PO Q6H PRN PRN Reason: Heartburn/Nausea Amlodipine Besylate (Amlodipine Besylate 10 Mg Tablet) 10 mg PO DAILY [facility]; Protocol Last Admin: 05/15/22 07:46 Dose: 10 mg Artificial Tears (Artificial Tears 15 Ml Drops) 1 drop EYE-BOTH Q4H PRN PRN Reason: dry eyes Atorvastatin Calcium (Atorvastatin Calcium 80 Mg Tablet) 80 mg PO DAILY [facility] Last Admin: 05/15/22 07:45 Dose: 80 mg Carvedilol (Carvedilol 12.5 Mg Tablet) 12.5 mg PO BID [facility]; Protocol Last Admin: 05/15/22 07:45 Dose: 12.5 mg Divalproex Sodium (Divalproex Sodium 250 Mg Tablet.Dr) 250 mg PO DAILY [facility] Last Admin: 05/15/22 07:45 Dose: 250 mg Divalproex Sodium (Divalproex Sodium 500 Mg Tablet.Dr) 500 mg PO BEDTIME [facility] Last Admin: 05/14/22 21:02 Dose: 500 mg Donepezil HCl (Donepezil Hcl 10 Mg Tablet) 10 mg PO BEDTIME [facility] Last Admin: 05/14/22 21:02 Dose: 10 mg Guaifenesin/Dextromethorphan (Guaifenesin Dm 100/10/5 Ml 5 Ml Syrup) 10 ml PO Q4H PRN PRN Reason: cough Hydrochlorothiazide (Hydrochlorothiazide 25 Mg Tablet) 25 mg PO DAILY [facility]; Protocol Last Admin: 05/15/22 07:44 Dose: 25 mg Hydroxyzine HCl (Hydroxyzine Hcl 25 Mg Tablet) 25 mg PO Q6H PRN PRN Reason: Anxiety Levothyroxine Sodium (Levothyroxine Sodium 50 Mcg Tablet) 50 mcg PO DAILY@0600 [facility] Last Admin: 05/15/22 06:06 Dose: 50 mcg Loratadine (Loratadine 10 Mg Tablet) 10 mg PO DAILY [facility] Last Admin: 05/15/22 07:45 Dose: 10 mg Magnesium Hydroxide (Milk Of Magnesia 30 Ml Oral.Susp) 30 ml PO DAILY PRN PRN Reason: Constipation Melatonin (Melatonin 3 Mg Tablet) 6 mg PO BEDTIME [facility] Last Admin: 05/14/22 21:02 Dose: 6 mg Nystatin (Nystatin Powder 15 Gm Bottle) 1 appl TOPICAL BID [facility]; Protocol Last Admin: 05/15/22 07:46 Dose: 1 appl Polyethylene Glycol (Polyethylene Glycol 3350 17 Gm Powd.Pack) 17 gm PO DAILY PRN PRN Reason: constipation Quetiapine Fumarate (Quetiapine Fumarate 50 Mg Tablet) 50 mg PO BEDTIME [facility] Last Admin: 05/14/22 21:01 Dose: 50 mg Senna/Docusate Sodium (Sennosides/Docusate Sodium Tablet) 1 tab PO DAILY PRN PRN Reason: constipation Sertraline HCl (Sertraline Hcl 50 Mg Tablet) 50 mg PO DAILY [facility] Last Admin: 05/15/22 07:44 Dose: 50 mg Trazodone HCl (Trazodone Hcl 50 Mg Tablet) 50 mg PO BEDTIME PRN PRN Reason: Insomnia Allergies Allergies Allergy/AdvReac Type Severity Reaction Status Date / Time No Known Allergies Allergy Verified 02/05/22 21:09 Assessment & Plan Assessment & Plan (1) Dementia: Status: Acute Code(s): F03.90 - Unspecified dementia, unspecified severity, without behavioral disturbance, psychotic disturbance, mood disturbance, and anxiety (2) Bipolar disorder: Status: Acute Code(s): F31.9 - Bipolar disorder, unspecified Plan 05/12: Continue current regimen and plans 05/13: Continue current plans and regimen Reason for contiued inpatient stay Substantial Risk for: inability to function, rapid decompensation and med/psych decompensation Time Spent With Patient Time: Total time managing care of this patient today __20__ minutes.
[2022-05-15 18:00] VITALS: BP 146/66; PULSE 67; RESP 16; TEMP 36.3; O2SAT 94
[2022-05-15] MEDS: Divalproex Sodium 500 MG TABLET.DR PO (20:58)
[2022-05-15] MEDS: Melatonin 3 MG TABLET 6 MG PO (20:58)
[2022-05-15] MEDS: QUEtiapine Fumarate 50 MG TABLET PO (20:58)
[2022-05-15] MEDS: Donepezil HCl 10 MG TABLET PO (20:58)
[2022-05-16] MEDS: Levothyroxine Sodium 50 MCG TABLET PO (06:29)
[2022-05-16 08:07] VITALS: BP 165/84; PULSE 65; RESP 16; TEMP 36.3; O2SAT 97
[2022-05-16] MEDS: Sertraline HCL 50 MG TABLET PO (08:08)
[2022-05-16] MEDS: Loratadine 10 MG TABLET PO (08:09)
[2022-05-16] MEDS: Atorvastatin Calcium 80 MG TABLET PO (08:09)
[2022-05-16] MEDS: carvediloL 12.5 MG TABLET PO ×2 (08:09→20:58)
[2022-05-16] MEDS: Divalproex Sodium 250 MG TABLET.DR PO (08:09)
[2022-05-16] MEDS: hydroCHLOROthiazide 25 MG TABLET PO (08:10)
[2022-05-16] MEDS: amLODIPine Besylate 10 MG TABLET PO (08:10)
[2022-05-16] MEDS: Acetaminophen 325 MG TABLET 650 MG PO (08:41)
--- NOTE | 2022-05-16 12:42 | HO.PSYCHPN ---
Subjective Subjective Date of Service: 05/16/22 Reason For Visit: depression, anxiety, alzheimers Subjective Notes: Conditional Voluntary Interim History: The nursing staff reported the patient slept well, she had been fully compliant with treatment. The psychotherapist social worker reported that the facility in [place] is going to accept her and they are contacting the son for the financial clearance. On interview the patient denies new symptoms cooperative pleasant waiting for placement. Mental Status Exam Mental Status Exam Patient Appearance: Well Grooomed and Appropriate Patient Orientation: Person and Situation Level of Consciousness: Awake and Appropriate Patient Behavior: Cooperative Mood Description: Calm Affect Description: Constricted Patient Cognition Impaired: Yes Ability to Follow Directions: Good Speech Pattern: Clear Hallucinations: None Delusions: Not Present Thought Process: Linear Thought Content: positive for Circumstantial Judgement: Fair Diagnostics Vital Signs (24Hr): Vital Signs - 24 hr 05/15/22 18:00 05/16/22 08:07 Temperature 97.3 F 97.4 F Pulse Rate 67 65 Respiratory Rate 16 16 Blood Pressure 146/66 H 165/84 H Pulse Oximetry 94 97 Oxygen Delivery Method Room Air Room Air BMI result Body Mass Index 30.0 Labs 05/09/22 08:02 05/09/22 08:02 Imaging Radiology Impressions: ITS Impressions Head CT 02/06/22 15:04 IMPRESSION: No acute intracranial hemorrhage or territorial infarction. Progressed moderate generalized parenchymal volume loss and mild to moderate chronic white matter microangiopathy. 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 Head CT 02/26/22 10:52 IMPRESSION: No acute intracranial hemorrhage or territorial infarction. Stable diffuse parenchymal volume loss and [id number]-[id number]-[id number] chronic white matter microangiopathy. Incompletely visualized moderate left maxillary sinus disease with chronic sclerotic wall thickening. 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 No evidence of acute territorial infarct. No intracranial mass effect or hydrocephalus. Medications Medications Current Medications Acetaminophen (Acetaminophen 325 Mg Tablet) 650 mg PO Q6H PRN PRN Reason: Headache/Pain Mild Scale (1-3) Last Admin: 05/16/22 08:41 Dose: 650 mg Al Hydroxide/Mg Hydroxide (Magnesium Hydrox/Alum Hydrox 30 Ml Oral.Susp) 30 ml PO Q6H PRN PRN Reason: Heartburn/Nausea Amlodipine Besylate (Amlodipine Besylate 10 Mg Tablet) 10 mg PO DAILY [facility]; Protocol Last Admin: 05/16/22 08:10 Dose: 10 mg Artificial Tears (Artificial Tears 15 Ml Drops) 1 drop EYE-BOTH Q4H PRN PRN Reason: dry eyes Atorvastatin Calcium (Atorvastatin Calcium 80 Mg Tablet) 80 mg PO DAILY [facility] Last Admin: 05/16/22 08:09 Dose: 80 mg Carvedilol (Carvedilol 12.5 Mg Tablet) 12.5 mg PO BID [facility]; Protocol Last Admin: 05/16/22 08:09 Dose: 12.5 mg Divalproex Sodium (Divalproex Sodium 250 Mg Tablet.Dr) 250 mg PO DAILY [facility] Last Admin: 05/16/22 08:09 Dose: 250 mg Divalproex Sodium (Divalproex Sodium 500 Mg Tablet.Dr) 500 mg PO BEDTIME [facility] Last Admin: 05/15/22 20:58 Dose: 500 mg Donepezil HCl (Donepezil Hcl 10 Mg Tablet) 10 mg PO BEDTIME [facility] Last Admin: 05/15/22 20:58 Dose: 10 mg Guaifenesin/Dextromethorphan (Guaifenesin Dm 100/10/5 Ml 5 Ml Syrup) 10 ml PO Q4H PRN PRN Reason: cough Hydrochlorothiazide (Hydrochlorothiazide 25 Mg Tablet) 25 mg PO DAILY [facility]; Protocol Last Admin: 05/16/22 08:10 Dose: 25 mg Hydroxyzine HCl (Hydroxyzine Hcl 25 Mg Tablet) 25 mg PO Q6H PRN PRN Reason: Anxiety Levothyroxine Sodium (Levothyroxine Sodium 50 Mcg Tablet) 50 mcg PO DAILY@0600 [facility] Last Admin: 05/16/22 06:29 Dose: 50 mcg Loratadine (Loratadine 10 Mg Tablet) 10 mg PO DAILY [facility] Last Admin: 05/16/22 08:09 Dose: 10 mg Magnesium Hydroxide (Milk Of Magnesia 30 Ml Oral.Susp) 30 ml PO DAILY PRN PRN Reason: Constipation Melatonin (Melatonin 3 Mg Tablet) 6 mg PO BEDTIME [facility] Last Admin: 05/15/22 20:58 Dose: 6 mg Nystatin (Nystatin Powder 15 Gm Bottle) 1 appl TOPICAL BID [facility]; Protocol Last Admin: 05/16/22 08:42 Dose: Not Given Polyethylene Glycol (Polyethylene Glycol 3350 17 Gm Powd.Pack) 17 gm PO DAILY PRN PRN Reason: constipation Quetiapine Fumarate (Quetiapine Fumarate 50 Mg Tablet) 50 mg PO BEDTIME [facility] Last Admin: 05/15/22 20:58 Dose: 50 mg Senna/Docusate Sodium (Sennosides/Docusate Sodium Tablet) 1 tab PO DAILY PRN PRN Reason: constipation Sertraline HCl (Sertraline Hcl 50 Mg Tablet) 50 mg PO DAILY [facility] Last Admin: 05/16/22 08:08 Dose: 50 mg Trazodone HCl (Trazodone Hcl 50 Mg Tablet) 50 mg PO BEDTIME PRN PRN Reason: Insomnia Allergies Allergies Allergy/AdvReac Type Severity Reaction Status Date / Time No Known Allergies Allergy Verified 02/05/22 21:09 Assessment & Plan Assessment & Plan (1) Dementia: Status: Acute Code(s): F03.90 - Unspecified dementia, unspecified severity, without behavioral disturbance, psychotic disturbance, mood disturbance, and anxiety (2) Bipolar disorder: Status: Acute Code(s): F31.9 - Bipolar disorder, unspecified Plan Elderly female with a past history of bipolar disorder and now recent onset of dementia initially admitted for aggressive behavior at her home. She was living with another 10 members in a crowded apartment. She was admitted and restarted her regular medications and she responded fairly well. Plan 1. Continue same medications, this moment the patient is stable. 2. Waiting for placement Reason for contiued inpatient stay Substantial Risk for: inability to function, rapid decompensation and med/psych decompensation Time Spent With Patient Time: Total time managing care of this patient today __20__ minutes.
[2022-05-16 18:00] VITALS: BP 140/64; PULSE 65; RESP 17; TEMP 36; O2SAT 95
[2022-05-16] MEDS: Divalproex Sodium 500 MG TABLET.DR PO (20:56)
[2022-05-16] MEDS: Donepezil HCl 10 MG TABLET PO (20:56)
[2022-05-16] MEDS: Melatonin 3 MG TABLET 6 MG PO (20:57)
[2022-05-16] MEDS: QUEtiapine Fumarate 50 MG TABLET PO (20:58)
[2022-05-17 06:00] VITALS: BP 129/59; PULSE 58; RESP 17; TEMP 36.2; O2SAT 98
[2022-05-17] MEDS: Levothyroxine Sodium 50 MCG TABLET PO (06:00)
[2022-05-17] MEDS: Sertraline HCL 50 MG TABLET PO (10:32)
[2022-05-17] MEDS: carvediloL 12.5 MG TABLET PO ×2 (10:32→20:10)
[2022-05-17] MEDS: amLODIPine Besylate 10 MG TABLET PO (10:32)
[2022-05-17] MEDS: Divalproex Sodium 250 MG TABLET.DR PO (10:32)
[2022-05-17] MEDS: Atorvastatin Calcium 80 MG TABLET PO (10:33)
[2022-05-17] MEDS: Loratadine 10 MG TABLET PO (10:33)
[2022-05-17] MEDS: hydroCHLOROthiazide 25 MG TABLET PO (10:33)
--- NOTE | 2022-05-17 12:54 | P.PNPSI_ITS ---
Subjective Subjective Date of Service: 05/17/22 Reason For Visit: depression, anxiety, alzheimers Subjective Notes: Conditional Voluntary Interim History: The nursing staff reported the patient had been compliant with treatment no new symptoms. The social media sr strategy manager reported that the staff for [facility] never showed up yesterday and she will find out today they could common assessed her. On interview the patient denies new symptoms, waiting for placement. Mental Status Exam Mental Status Exam Patient Appearance: Well Grooomed Patient Orientation: Person, Place and Situation Level of Consciousness: Awake and Appropriate Patient Behavior: Cooperative Mood Description: Withdrawn Affect Description: Constricted Patient Cognition Impaired: Yes Ability to Follow Directions: Good Speech Pattern: Clear Hallucinations: None Delusions: Not Present Thought Process: Linear Thought Content: positive for [place] and positive for Circumstantial Judgement: Fair Diagnostics Vital Signs (24Hr): Vital Signs - 24 hr 05/16/22 18:00 05/17/22 06:00 Temperature 96.8 F 97.2 F Pulse Rate 65 58 Respiratory Rate 17 17 Blood Pressure 140/64 H 129/59 L Pulse Oximetry 95 98 Oxygen Delivery Method Room Air Room Air BMI result Body Mass Index 30.0 Labs 05/09/22 08:02 05/09/22 08:02 Imaging Radiology Impressions: ITS Impressions Head CT 02/06/22 15:04 IMPRESSION: No acute intracranial hemorrhage or territorial infarction. Progressed moderate generalized parenchymal volume loss and mild to moderate chronic white matter microangiopathy. 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 Head CT 02/26/22 10:52 IMPRESSION: No acute intracranial hemorrhage or territorial infarction. Stable diffuse parenchymal volume loss and [id number] chronic white matter microangiopathy. Incompletely visualized moderate left maxillary sinus disease with chronic sclerotic wall thickening. 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 No evidence of acute territorial infarct. No intracranial mass effect or hydrocephalus. Medications Medications Current Medications Acetaminophen (Acetaminophen 325 Mg Tablet) 650 mg PO Q6H PRN PRN Reason: Headache/Pain Mild Scale (1-3) Last Admin: 05/16/22 08:41 Dose: 650 mg Al Hydroxide/Mg Hydroxide (Magnesium Hydrox/Alum Hydrox 30 Ml Oral.Susp) 30 ml PO Q6H PRN PRN Reason: Heartburn/Nausea Amlodipine Besylate (Amlodipine Besylate 10 Mg Tablet) 10 mg PO DAILY [facility]; Protocol Last Admin: 05/17/22 10:32 Dose: 10 mg Artificial Tears (Artificial Tears 15 Ml Drops) 1 drop EYE-BOTH Q4H PRN PRN Reason: dry eyes Atorvastatin Calcium (Atorvastatin Calcium 80 Mg Tablet) 80 mg PO DAILY [facility] Last Admin: 05/17/22 10:33 Dose: 80 mg Carvedilol (Carvedilol 12.5 Mg Tablet) 12.5 mg PO BID [facility]; Protocol Last Admin: 05/17/22 10:32 Dose: 12.5 mg Divalproex Sodium (Divalproex Sodium 250 Mg Tablet.) 250 mg PO DAILY [facility] Last Admin: 05/17/22 10:32 Dose: 250 mg Divalproex Sodium (Divalproex Sodium 500 Mg Tablet.) 500 mg PO BEDTIME [facility] Last Admin: 05/16/22 20:56 Dose: 500 mg Guaifenesin/Dextromethorphan (Guaifenesin Dm 100/10/5 Ml 5 Ml Syrup) 10 ml PO Q4H PRN PRN Reason: cough Hydrochlorothiazide (Hydrochlorothiazide 25 Mg Tablet) 25 mg PO DAILY [facility]; Protocol Last Admin: 05/17/22 10:33 Dose: 25 mg Hydroxyzine HCl (Hydroxyzine Hcl 25 Mg Tablet) 25 mg PO Q6H PRN PRN Reason: Anxiety Levothyroxine Sodium (Levothyroxine Sodium 50 Mcg Tablet) 50 mcg PO DAILY@0600 [facility] Last Admin: 05/17/22 06:00 Dose: 50 mcg Loratadine (Loratadine 10 Mg Tablet) 10 mg PO DAILY [facility] Last Admin: 05/17/22 10:33 Dose: 10 mg Magnesium Hydroxide (Milk Of Magnesia 30 Ml Oral.Susp) 30 ml PO DAILY PRN PRN Reason: Constipation Melatonin (Melatonin 3 Mg Tablet) 6 mg PO BEDTIME [facility] Last Admin: 05/16/22 20:57 Dose: 6 mg Nystatin (Nystatin Powder 15 Gm Bottle) 1 appl TOPICAL BID [facility]; Protocol Last Admin: 05/17/22 10:34 Dose: Not Given Polyethylene Glycol (Polyethylene Glycol 3350 17 Gm Powd.Pack) 17 gm PO DAILY PRN PRN Reason: constipation Quetiapine Fumarate (Quetiapine Fumarate 50 Mg Tablet) 50 mg PO BEDTIME [facility] Last Admin: 05/16/22 20:58 Dose: 50 mg Senna/Docusate Sodium (Sennosides/Docusate Sodium Tablet) 1 tab PO DAILY PRN PRN Reason: constipation Sertraline HCl (Sertraline Hcl 50 Mg Tablet) 50 mg PO DAILY [facility] Last Admin: 05/17/22 10:32 Dose: 50 mg Trazodone HCl (Trazodone Hcl 50 Mg Tablet) 50 mg PO BEDTIME PRN PRN Reason: Insomnia Allergies Allergies Allergy/AdvReac Type Severity Reaction Status Date / Time No Known Allergies Allergy Verified 02/05/22 21:09 Assessment & Plan Assessment & Plan (1) Dementia: Status: Acute Code(s): F03.90 - Unspecified dementia, unspecified severity, without behavioral disturbance, psychotic disturbance, mood disturbance, and anxiety (2) Bipolar disorder: Status: Acute Code(s): F31.9 - Bipolar disorder, unspecified Plan Elderly female with a past history of bipolar disorder and now recent onset of dementia initially admitted for aggressive behavior at her home. She was living with another 10 members in a crowded apartment. She was admitted and restarted her regular medications and she responded fairly well. Plan 1. Continue same medications, this moment the patient is stable. 2. Waiting for placement Reason for contiued inpatient stay Substantial Risk for: inability to function, rapid decompensation and med/psych decompensation Time Spent With Patient Time: Total time managing care of this patient today ___20_ minutes.
[2022-05-17 18:00] VITALS: BP 137/62; PULSE 60; RESP 17; TEMP 36.2; O2SAT 97
[2022-05-17] MEDS: Divalproex Sodium 500 MG TABLET.DR PO (20:10)
[2022-05-17] MEDS: QUEtiapine Fumarate 50 MG TABLET PO (20:10)
[2022-05-17] MEDS: Melatonin 3 MG TABLET 6 MG PO (20:11)
[2022-05-18] MEDS: Levothyroxine Sodium 50 MCG TABLET PO (06:00)
[2022-05-18 08:00] VITALS: BP 131/61; PULSE 68; RESP 18; O2SAT 97
[2022-05-18] MEDS: hydroCHLOROthiazide 25 MG TABLET PO (08:10)
[2022-05-18] MEDS: Divalproex Sodium 250 MG TABLET.DR PO (08:10)
[2022-05-18] MEDS: Atorvastatin Calcium 80 MG TABLET PO (08:11)
[2022-05-18] MEDS: carvediloL 12.5 MG TABLET PO ×2 (08:11→20:02)
[2022-05-18] MEDS: amLODIPine Besylate 10 MG TABLET PO (08:12)
[2022-05-18] MEDS: Loratadine 10 MG TABLET PO (08:12)
[2022-05-18] MEDS: Sertraline HCL 50 MG TABLET PO (08:15)
--- NOTE | 2022-05-18 12:06 | HO.PSYCHPN ---
Subjective Subjective Date of Service: 05/18/22 Reason For Visit: depression, anxiety, alzheimers Subjective Notes: Conditional Voluntary Interim History: The nursing staff reported the patient had been compliant with medications no side effects. On interview the patient denies new symptoms, waiting for placement. Mental Status Exam Mental Status Exam Patient Appearance: Well Grooomed and Appropriate Patient Orientation: Person and Situation Level of Consciousness: Awake and Appropriate Patient Behavior: Appropriate and Cooperative Mood Description: Calm Affect Description: Calm Patient Cognition Impaired: Yes Ability to Follow Directions: Good Speech Pattern: Clear Hallucinations: None Delusions: Not Present Thought Process: Goal Oriented and Linear Thought Content: positive for [place] and positive for Circumstantial Judgement: Fair Diagnostics Vital Signs (24Hr): Vital Signs - 24 hr 05/17/22 18:00 05/18/22 08:00 Temperature 97.2 F Pulse Rate 60 68 Respiratory Rate 17 18 Blood Pressure 137/62 131/61 Pulse Oximetry 97 97 Oxygen Delivery Method Room Air Room Air BMI result Body Mass Index 30.0 Labs 05/09/22 08:02 05/09/22 08:02 Imaging Radiology Impressions: ITS Impressions Head CT 02/06/22 15:04 IMPRESSION: No acute intracranial hemorrhage or territorial infarction. Progressed moderate generalized parenchymal volume loss and mild to moderate chronic white matter microangiopathy. 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 Head CT 02/26/22 10:52 IMPRESSION: No acute intracranial hemorrhage or territorial infarction. Stable diffuse parenchymal volume loss and [id number] chronic white matter microangiopathy. Incompletely visualized moderate left maxillary sinus disease with chronic sclerotic wall thickening. 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 No evidence of acute territorial infarct. No intracranial mass effect or hydrocephalus. Medications Medications Current Medications Acetaminophen (Acetaminophen 325 Mg Tablet) 650 mg PO Q6H PRN PRN Reason: Headache/Pain Mild Scale (1-3) Last Admin: 05/16/22 08:41 Dose: 650 mg Al Hydroxide/Mg Hydroxide (Magnesium Hydrox/Alum Hydrox 30 Ml Oral.Susp) 30 ml PO Q6H PRN PRN Reason: Heartburn/Nausea Amlodipine Besylate (Amlodipine Besylate 10 Mg Tablet) 10 mg PO DAILY [facility]; Protocol Last Admin: 05/18/22 08:12 Dose: 10 mg Artificial Tears (Artificial Tears 15 Ml Drops) 1 drop EYE-BOTH Q4H PRN PRN Reason: dry eyes Atorvastatin Calcium (Atorvastatin Calcium 80 Mg Tablet) 80 mg PO DAILY [facility] Last Admin: 05/18/22 08:11 Dose: 80 mg Carvedilol (Carvedilol 12.5 Mg Tablet) 12.5 mg PO BID [facility]; Protocol Last Admin: 05/18/22 08:11 Dose: 12.5 mg Divalproex Sodium (Divalproex Sodium 250 Mg Tablet.) 250 mg PO DAILY [facility] Last Admin: 05/18/22 08:10 Dose: 250 mg Divalproex Sodium (Divalproex Sodium 500 Mg Tablet.Dr) 500 mg PO BEDTIME [facility] Last Admin: 05/17/22 20:10 Dose: 500 mg Guaifenesin/Dextromethorphan (Guaifenesin Dm 100/10/5 Ml 5 Ml Syrup) 10 ml PO Q4H PRN PRN Reason: cough Hydrochlorothiazide (Hydrochlorothiazide 25 Mg Tablet) 25 mg PO DAILY [facility]; Protocol Last Admin: 05/18/22 08:10 Dose: 25 mg Hydroxyzine HCl (Hydroxyzine Hcl 25 Mg Tablet) 25 mg PO Q6H PRN PRN Reason: Anxiety Levothyroxine Sodium (Levothyroxine Sodium 50 Mcg Tablet) 50 mcg PO DAILY@0600 [facility] Last Admin: 05/18/22 06:00 Dose: 50 mcg Loratadine (Loratadine 10 Mg Tablet) 10 mg PO DAILY [facility] Last Admin: 05/18/22 08:12 Dose: 10 mg Magnesium Hydroxide (Milk Of Magnesia 30 Ml Oral.Susp) 30 ml PO DAILY PRN PRN Reason: Constipation Melatonin (Melatonin 3 Mg Tablet) 6 mg PO BEDTIME [facility] Last Admin: 05/17/22 20:11 Dose: 6 mg Nystatin (Nystatin Powder 15 Gm Bottle) 1 appl TOPICAL BID [facility]; Protocol Last Admin: 05/18/22 08:13 Dose: Not Given Polyethylene Glycol (Polyethylene Glycol 3350 17 Gm Powd.Pack) 17 gm PO DAILY PRN PRN Reason: constipation Quetiapine Fumarate (Quetiapine Fumarate 50 Mg Tablet) 50 mg PO BEDTIME [facility] Last Admin: 05/17/22 20:10 Dose: 50 mg Senna/Docusate Sodium (Sennosides/Docusate Sodium Tablet) 1 tab PO DAILY PRN PRN Reason: constipation Sertraline HCl (Sertraline Hcl 50 Mg Tablet) 50 mg PO DAILY [facility] Last Admin: 05/18/22 08:15 Dose: 50 mg Trazodone HCl (Trazodone Hcl 50 Mg Tablet) 50 mg PO BEDTIME PRN PRN Reason: Insomnia Allergies Allergies Allergy/AdvReac Type Severity Reaction Status Date / Time No Known Allergies Allergy Verified 02/05/22 21:09 Assessment & Plan Assessment & Plan (1) Dementia: Status: Acute Code(s): F03.90 - Unspecified dementia, unspecified severity, without behavioral disturbance, psychotic disturbance, mood disturbance, and anxiety (2) Bipolar disorder: Status: Acute Code(s): F31.9 - Bipolar disorder, unspecified Plan Elderly female with a past history of bipolar disorder and now recent onset of dementia initially admitted for aggressive behavior at her home. She was living with another 10 members in a crowded apartment. She was admitted and restarted her regular medications and she responded fairly well. Plan 1. Continue same medications, this moment the patient is stable. 2. Waiting for placement Reason for contiued inpatient stay Substantial Risk for: inability to function, rapid decompensation and med/psych decompensation Time Spent With Patient Time: Total time managing care of this patient today __20__ minutes.
[2022-05-18] MEDS: Acetaminophen 325 MG TABLET 650 MG PO (13:21)
[2022-05-18 18:00] VITALS: BP 133/61; PULSE 62; RESP 18; TEMP 36.1; O2SAT 94
[2022-05-18] MEDS: Divalproex Sodium 500 MG TABLET.DR PO (20:02)
[2022-05-18] MEDS: Melatonin 3 MG TABLET 6 MG PO (20:02)
[2022-05-18] MEDS: QUEtiapine Fumarate 50 MG TABLET PO (20:02)
[2022-05-19] MEDS: Levothyroxine Sodium 50 MCG TABLET PO (05:51)
[2022-05-19 06:00] VITALS: BP 141/65; PULSE 60; RESP 18; TEMP 36.7; O2SAT 93
--- NOTE | 2022-05-19 08:48 | HO.PSYCHPN ---
Subjective Subjective Date of Service: 05/19/22 Reason For Visit: depression, anxiety, alzheimers Subjective Notes: Conditional Voluntary Interim History: The nursing staff reported that she had been fully compliant with treatment no visual disturbance. She was seen by the staff even cheerful and pleasant. She slept well last night. On interview the patient denies new symptoms, waiting for placement. Mental Status Exam Mental Status Exam Patient Appearance: Well Grooomed and Appropriate Patient Orientation: Person and Situation Level of Consciousness: Awake and Appropriate Patient Behavior: Cooperative Mood Description: Calm Affect Description: Constricted Patient Cognition Impaired: Yes Ability to Follow Directions: Good Speech Pattern: Clear Hallucinations: None Delusions: Not Present Thought Process: Linear Thought Content: positive for [place] and positive for Circumstantial Judgement: Fair Diagnostics Vital Signs (24Hr): Vital Signs - 24 hr 05/18/22 18:00 Temperature 97 F Pulse Rate 62 Respiratory Rate 18 Blood Pressure 133/61 Pulse Oximetry 94 Oxygen Delivery Method Room Air BMI result Body Mass Index 30.0 Labs 05/09/22 08:02 05/09/22 08:02 Imaging Radiology Impressions: ITS Impressions Head CT 02/06/22 15:04 IMPRESSION: No acute intracranial hemorrhage or territorial infarction. Progressed moderate generalized parenchymal volume loss and mild to moderate chronic white matter microangiopathy. 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 Head CT 02/26/22 10:52 IMPRESSION: No acute intracranial hemorrhage or territorial infarction. Stable diffuse parenchymal volume loss and [id number] chronic white matter microangiopathy. Incompletely visualized moderate left maxillary sinus disease with chronic sclerotic wall thickening. 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 No evidence of acute territorial infarct. No intracranial mass effect or hydrocephalus. Medications Medications Current Medications Acetaminophen (Acetaminophen 325 Mg Tablet) 650 mg PO Q6H PRN PRN Reason: Headache/Pain Mild Scale (1-3) Last Admin: 05/18/22 13:21 Dose: 650 mg Al Hydroxide/Mg Hydroxide (Magnesium Hydrox/Alum Hydrox 30 Ml Oral.Susp) 30 ml PO Q6H PRN PRN Reason: Heartburn/Nausea Amlodipine Besylate (Amlodipine Besylate 10 Mg Tablet) 10 mg PO DAILY [facility]; Protocol Last Admin: 05/18/22 08:12 Dose: 10 mg Artificial Tears (Artificial Tears 15 Ml Drops) 1 drop EYE-BOTH Q4H PRN PRN Reason: dry eyes Atorvastatin Calcium (Atorvastatin Calcium 80 Mg Tablet) 80 mg PO DAILY [facility] Last Admin: 05/18/22 08:11 Dose: 80 mg Carvedilol (Carvedilol 12.5 Mg Tablet) 12.5 mg PO BID [facility]; Protocol Last Admin: 05/18/22 20:02 Dose: 12.5 mg Divalproex Sodium (Divalproex Sodium 250 Mg Tablet.) 250 mg PO DAILY [facility] Last Admin: 05/18/22 08:10 Dose: 250 mg Divalproex Sodium (Divalproex Sodium 500 Mg Tablet.Dr) 500 mg PO BEDTIME [facility] Last Admin: 05/18/22 20:02 Dose: 500 mg Guaifenesin/Dextromethorphan (Guaifenesin Dm 100/10/5 Ml 5 Ml Syrup) 10 ml PO Q4H PRN PRN Reason: cough Hydrochlorothiazide (Hydrochlorothiazide 25 Mg Tablet) 25 mg PO DAILY [facility]; Protocol Last Admin: 05/18/22 08:10 Dose: 25 mg Hydroxyzine HCl (Hydroxyzine Hcl 25 Mg Tablet) 25 mg PO Q6H PRN PRN Reason: Anxiety Levothyroxine Sodium (Levothyroxine Sodium 50 Mcg Tablet) 50 mcg PO DAILY@0600 [facility] Last Admin: 05/19/22 05:51 Dose: 50 mcg Loratadine (Loratadine 10 Mg Tablet) 10 mg PO DAILY [facility] Last Admin: 05/18/22 08:12 Dose: 10 mg Magnesium Hydroxide (Milk Of Magnesia 30 Ml Oral.Susp) 30 ml PO DAILY PRN PRN Reason: Constipation Melatonin (Melatonin 3 Mg Tablet) 6 mg PO BEDTIME [facility] Last Admin: 05/18/22 20:02 Dose: 6 mg Nystatin (Nystatin Powder 15 Gm Bottle) 1 appl TOPICAL BID [facility]; Protocol Last Admin: 05/18/22 20:03 Dose: Not Given Polyethylene Glycol (Polyethylene Glycol 3350 17 Gm Powd.Pack) 17 gm PO DAILY PRN PRN Reason: constipation Quetiapine Fumarate (Quetiapine Fumarate 50 Mg Tablet) 50 mg PO BEDTIME [facility] Last Admin: 05/18/22 20:02 Dose: 50 mg Senna/Docusate Sodium (Sennosides/Docusate Sodium Tablet) 1 tab PO DAILY PRN PRN Reason: constipation Sertraline HCl (Sertraline Hcl 50 Mg Tablet) 50 mg PO DAILY [facility] Last Admin: 05/18/22 08:15 Dose: 50 mg Trazodone HCl (Trazodone Hcl 50 Mg Tablet) 50 mg PO BEDTIME PRN PRN Reason: Insomnia Allergies Allergies Allergy/AdvReac Type Severity Reaction Status Date / Time No Known Allergies Allergy Verified 02/05/22 21:09 Assessment & Plan Assessment & Plan (1) Dementia: Status: Acute Code(s): F03.90 - Unspecified dementia, unspecified severity, without behavioral disturbance, psychotic disturbance, mood disturbance, and anxiety (2) Bipolar disorder: Status: Acute Code(s): F31.9 - Bipolar disorder, unspecified Plan Elderly female with a past history of bipolar disorder and now recent onset of dementia initially admitted for aggressive behavior at her home. She was living with another 10 members in a crowded apartment. She was admitted and restarted her regular medications and she responded fairly well. Plan 1. Continue same medications, this moment the patient is stable. 2. Waiting for placement Reason for contiued inpatient stay Substantial Risk for: inability to function, rapid decompensation and med/psych decompensation Time Spent With Patient Time: Total time managing care of this patient today __20__ minutes.
[2022-05-19] MEDS: hydroCHLOROthiazide 25 MG TABLET PO (09:24)
[2022-05-19] MEDS: amLODIPine Besylate 10 MG TABLET PO (09:24)
[2022-05-19] MEDS: Divalproex Sodium 250 MG TABLET.DR PO (09:24)
[2022-05-19] MEDS: Loratadine 10 MG TABLET PO (09:25)
[2022-05-19] MEDS: Atorvastatin Calcium 80 MG TABLET PO (09:25)
[2022-05-19] MEDS: Sertraline HCL 50 MG TABLET PO (09:25)
[2022-05-19] MEDS: carvediloL 12.5 MG TABLET PO ×2 (09:25→19:49)
[2022-05-19 18:00] VITALS: BP 139/80; PULSE 62; RESP 16; TEMP 36.4; O2SAT 97
[2022-05-19] MEDS: Divalproex Sodium 500 MG TABLET.DR PO (19:48)
[2022-05-19] MEDS: QUEtiapine Fumarate 50 MG TABLET PO (19:49)
[2022-05-19] MEDS: Melatonin 3 MG TABLET 6 MG PO (19:49)
[2022-05-20] MEDS: Levothyroxine Sodium 50 MCG TABLET PO (05:39)
[2022-05-20 08:30] VITALS: BP 104/60; PULSE 63; RESP 16; TEMP 36.3; O2SAT 97
--- NOTE | 2022-05-20 08:51 | HO.PSYCHPN ---
Subjective Subjective Date of Service: 05/20/22 Reason For Visit: depression, anxiety, alzheimers Subjective Notes: Conditional Voluntary Interim History: The nursing staff reported the patient had been compliant with treatment, she has intrusive with peers at times but easily redirectable. She slept well all last night. On interview the patient denies new symptoms, waiting for placement. Mental Status Exam Mental Status Exam Patient Appearance: Well Grooomed and Appropriate Patient Orientation: Person and Situation Level of Consciousness: Awake Patient Behavior: Appropriate Mood Description: Calm Affect Description: Calm Patient Cognition Impaired: Yes Ability to Follow Directions: Good Speech Pattern: Clear Hallucinations: None Delusions: Not Present Thought Process: Linear Thought Content: positive for Circumstantial Judgement: Fair Diagnostics Vital Signs (24Hr): Vital Signs - 24 hr 05/19/22 18:00 Temperature 97.6 F Pulse Rate 62 Respiratory Rate 16 Blood Pressure 139/80 Pulse Oximetry 97 Oxygen Delivery Method Room Air BMI result Body Mass Index 30.0 Labs 05/09/22 08:02 05/09/22 08:02 Imaging Radiology Impressions: ITS Impressions Head CT 02/06/22 15:04 IMPRESSION: No acute intracranial hemorrhage or territorial infarction. Progressed moderate generalized parenchymal volume loss and mild to moderate chronic white matter microangiopathy. 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 Head CT 02/26/22 10:52 IMPRESSION: No acute intracranial hemorrhage or territorial infarction. Stable diffuse parenchymal volume loss and [id number] chronic white matter microangiopathy. Incompletely visualized moderate left maxillary sinus disease with chronic sclerotic wall thickening. 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 No evidence of acute territorial infarct. No intracranial mass effect or hydrocephalus. Medications Medications Current Medications Acetaminophen (Acetaminophen 325 Mg Tablet) 650 mg PO Q6H PRN PRN Reason: Headache/Pain Mild Scale (1-3) Last Admin: 05/18/22 13:21 Dose: 650 mg Al Hydroxide/Mg Hydroxide (Magnesium Hydrox/Alum Hydrox 30 Ml Oral.Susp) 30 ml PO Q6H PRN PRN Reason: Heartburn/Nausea Amlodipine Besylate (Amlodipine Besylate 10 Mg Tablet) 10 mg PO DAILY [facility]; Protocol Last Admin: 05/19/22 09:24 Dose: 10 mg Artificial Tears (Artificial Tears 15 Ml Drops) 1 drop EYE-BOTH Q4H PRN PRN Reason: dry eyes Atorvastatin Calcium (Atorvastatin Calcium 80 Mg Tablet) 80 mg PO DAILY [facility] Last Admin: 05/19/22 09:25 Dose: 80 mg Carvedilol (Carvedilol 12.5 Mg Tablet) 12.5 mg PO BID [facility]; Protocol Last Admin: 05/19/22 19:49 Dose: 12.5 mg Divalproex Sodium (Divalproex Sodium 250 Mg Tablet.Dr) 250 mg PO DAILY [facility] Last Admin: 05/19/22 09:24 Dose: 250 mg Divalproex Sodium (Divalproex Sodium 500 Mg Tablet.Dr) 500 mg PO BEDTIME [facility] Last Admin: 05/19/22 19:48 Dose: 500 mg Guaifenesin/Dextromethorphan (Guaifenesin Dm 100/10/5 Ml 5 Ml Syrup) 10 ml PO Q4H PRN PRN Reason: cough Hydrochlorothiazide (Hydrochlorothiazide 25 Mg Tablet) 25 mg PO DAILY [facility]; Protocol Last Admin: 05/19/22 09:24 Dose: 25 mg Hydroxyzine HCl (Hydroxyzine Hcl 25 Mg Tablet) 25 mg PO Q6H PRN PRN Reason: Anxiety Levothyroxine Sodium (Levothyroxine Sodium 50 Mcg Tablet) 50 mcg PO DAILY@0600 [facility] Last Admin: 05/20/22 05:39 Dose: 50 mcg Loratadine (Loratadine 10 Mg Tablet) 10 mg PO DAILY [facility] Last Admin: 05/19/22 09:25 Dose: 10 mg Magnesium Hydroxide (Milk Of Magnesia 30 Ml Oral.Susp) 30 ml PO DAILY PRN PRN Reason: Constipation Melatonin (Melatonin 3 Mg Tablet) 6 mg PO BEDTIME [facility] Last Admin: 05/19/22 19:49 Dose: 6 mg Nystatin (Nystatin Powder 15 Gm Bottle) 1 appl TOPICAL BID [facility]; Protocol Last Admin: 05/19/22 19:51 Dose: Not Given Polyethylene Glycol (Polyethylene Glycol 3350 17 Gm Powd.Pack) 17 gm PO DAILY PRN PRN Reason: constipation Quetiapine Fumarate (Quetiapine Fumarate 50 Mg Tablet) 50 mg PO BEDTIME [facility] Last Admin: 05/19/22 19:49 Dose: 50 mg Senna/Docusate Sodium (Sennosides/Docusate Sodium Tablet) 1 tab PO DAILY PRN PRN Reason: constipation Sertraline HCl (Sertraline Hcl 50 Mg Tablet) 50 mg PO DAILY [facility] Last Admin: 05/19/22 09:25 Dose: 50 mg Trazodone HCl (Trazodone Hcl 50 Mg Tablet) 50 mg PO BEDTIME PRN PRN Reason: Insomnia Allergies Allergies Allergy/AdvReac Type Severity Reaction Status Date / Time No Known Allergies Allergy Verified 02/05/22 21:09 Assessment & Plan Assessment & Plan (1) Dementia: Status: Acute Code(s): F03.90 - Unspecified dementia, unspecified severity, without behavioral disturbance, psychotic disturbance, mood disturbance, and anxiety (2) Bipolar disorder: Status: Acute Code(s): F31.9 - Bipolar disorder, unspecified Plan Elderly female with a past history of bipolar disorder and now recent onset of dementia initially admitted for aggressive behavior at her home. She was living with another 10 members in a crowded apartment. She was admitted and restarted her regular medications and she responded fairly well. Plan 1. Continue same medications, this moment the patient is stable. 2. Waiting for placement Reason for contiued inpatient stay Substantial Risk for: inability to function, rapid decompensation and med/psych decompensation Time Spent With Patient Time: Total time managing care of this patient today 20____ minutes.
[2022-05-20] MEDS: Divalproex Sodium 250 MG TABLET.DR PO (10:24)
[2022-05-20] MEDS: Loratadine 10 MG TABLET PO (10:24)
[2022-05-20] MEDS: amLODIPine Besylate 10 MG TABLET PO (10:24)
[2022-05-20] MEDS: Sertraline HCL 50 MG TABLET PO (10:24)
[2022-05-20] MEDS: Atorvastatin Calcium 80 MG TABLET PO (10:25)
[2022-05-20] MEDS: carvediloL 12.5 MG TABLET PO ×2 (10:25→20:31)
[2022-05-20] MEDS: hydroCHLOROthiazide 25 MG TABLET PO (10:25)
[2022-05-20] MEDS: Nystatin Powder 15 GM BOTTLE 1 APPL TOPICAL ×2 (15:02→20:43)
[2022-05-20 18:00] VITALS: BP 138/75; PULSE 60; RESP 17; TEMP 36.1; O2SAT 96
[2022-05-20] MEDS: Divalproex Sodium 500 MG TABLET.DR PO (20:32)
[2022-05-20] MEDS: Melatonin 3 MG TABLET 6 MG PO (20:33)
[2022-05-20] MEDS: QUEtiapine Fumarate 50 MG TABLET PO (20:33)
[2022-05-20] MEDS: Acetaminophen 325 MG TABLET 650 MG PO (20:33)
[2022-05-21] MEDS: Levothyroxine Sodium 50 MCG TABLET PO (06:31)
--- NOTE | 2022-05-21 06:50 | P.PNPSI_ITS ---
Subjective Subjective Date of Service: 05/21/22 Reason For Visit: depression, anxiety, alzheimers Subjective Notes: Conditional Voluntary Interim History: The nursing staff reported the patient had taking all her meds, she had been pleasant and cooperative, very visible in the unit. On interview the patient denies new symptoms, waiting for placement. Mental Status Exam Mental Status Exam Patient Appearance: Well Grooomed and Appropriate Patient Orientation: Person, Place and Situation Level of Consciousness: Awake and Appropriate Patient Behavior: Cooperative Mood Description: Calm Affect Description: Constricted Patient Cognition Impaired: Yes Ability to Follow Directions: Fair Speech Pattern: Clear Hallucinations: None Delusions: Not Present Thought Process: Distracted and Linear Thought Content: positive for [place] and positive for Circumstantial Judgement: Fair Diagnostics Vital Signs (24Hr): Vital Signs - 24 hr 05/20/22 08:30 05/20/22 18:00 Temperature 97.4 F 97 F Pulse Rate 63 60 Respiratory Rate 16 17 Blood Pressure 104/60 138/75 Pulse Oximetry 97 96 Oxygen Delivery Method Room Air Room Air BMI result Body Mass Index 30.0 Labs 05/09/22 08:02 05/09/22 08:02 Imaging Radiology Impressions: ITS Impressions Head CT 02/06/22 15:04 IMPRESSION: No acute intracranial hemorrhage or territorial infarction. Progressed moderate generalized parenchymal volume loss and mild to moderate chronic white matter microangiopathy. 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 Head CT 02/26/22 10:52 IMPRESSION: No acute intracranial hemorrhage or territorial infarction. Stable diffuse parenchymal volume loss and [id number] chronic white matter microangiopathy. Incompletely visualized moderate left maxillary sinus disease with chronic sclerotic wall thickening. 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 No evidence of acute territorial infarct. No intracranial mass effect or hydrocephalus. Medications Medications Current Medications Acetaminophen (Acetaminophen 325 Mg Tablet) 650 mg PO Q6H PRN PRN Reason: Headache/Pain Mild Scale (1-3) Last Admin: 05/20/22 20:33 Dose: 650 mg Al Hydroxide/Mg Hydroxide (Magnesium Hydrox/Alum Hydrox 30 Ml Oral.Susp) 30 ml PO Q6H PRN PRN Reason: Heartburn/Nausea Amlodipine Besylate (Amlodipine Besylate 10 Mg Tablet) 10 mg PO DAILY [facility]; Protocol Last Admin: 05/20/22 10:24 Dose: 10 mg Artificial Tears (Artificial Tears 15 Ml Drops) 1 drop EYE-BOTH Q4H PRN PRN Reason: dry eyes Atorvastatin Calcium (Atorvastatin Calcium 80 Mg Tablet) 80 mg PO DAILY [facility] Last Admin: 05/20/22 10:25 Dose: 80 mg Carvedilol (Carvedilol 12.5 Mg Tablet) 12.5 mg PO BID [facility]; Protocol Last Admin: 05/20/22 20:31 Dose: 12.5 mg Divalproex Sodium (Divalproex Sodium 250 Mg Tablet.) 250 mg PO DAILY [facility] Last Admin: 05/20/22 10:24 Dose: 250 mg Divalproex Sodium (Divalproex Sodium 500 Mg Tablet.) 500 mg PO BEDTIME [facility] Last Admin: 05/20/22 20:32 Dose: 500 mg Guaifenesin/Dextromethorphan (Guaifenesin Dm 100/10/5 Ml 5 Ml Syrup) 10 ml PO Q4H PRN PRN Reason: cough Hydrochlorothiazide (Hydrochlorothiazide 25 Mg Tablet) 25 mg PO DAILY [facility]; Protocol Last Admin: 05/20/22 10:25 Dose: 25 mg Hydroxyzine HCl (Hydroxyzine Hcl 25 Mg Tablet) 25 mg PO Q6H PRN PRN Reason: Anxiety Levothyroxine Sodium (Levothyroxine Sodium 50 Mcg Tablet) 50 mcg PO DAILY@0600 [facility] Last Admin: 05/21/22 06:31 Dose: 50 mcg Loratadine (Loratadine 10 Mg Tablet) 10 mg PO DAILY [facility] Last Admin: 05/20/22 10:24 Dose: 10 mg Magnesium Hydroxide (Milk Of Magnesia 30 Ml Oral.Susp) 30 ml PO DAILY PRN PRN Reason: Constipation Melatonin (Melatonin 3 Mg Tablet) 6 mg PO BEDTIME [facility] Last Admin: 05/20/22 20:33 Dose: 6 mg Nystatin (Nystatin Powder 15 Gm Bottle) 1 appl TOPICAL BID [facility]; Protocol Last Admin: 05/20/22 20:43 Dose: 1 appl Polyethylene Glycol (Polyethylene Glycol 3350 17 Gm Powd.Pack) 17 gm PO DAILY PRN PRN Reason: constipation Quetiapine Fumarate (Quetiapine Fumarate 50 Mg Tablet) 50 mg PO BEDTIME [facility] Last Admin: 05/20/22 20:33 Dose: 50 mg Senna/Docusate Sodium (Sennosides/Docusate Sodium Tablet) 1 tab PO DAILY PRN PRN Reason: constipation Sertraline HCl (Sertraline Hcl 50 Mg Tablet) 50 mg PO DAILY [facility] Last Admin: 05/20/22 10:24 Dose: 50 mg Trazodone HCl (Trazodone Hcl 50 Mg Tablet) 50 mg PO BEDTIME PRN PRN Reason: Insomnia Allergies Allergies Allergy/AdvReac Type Severity Reaction Status Date / Time No Known Allergies Allergy Verified 02/05/22 21:09 Assessment & Plan Assessment & Plan (1) Dementia: Status: Acute Code(s): F03.90 - Unspecified dementia, unspecified severity, without behavioral disturbance, psychotic disturbance, mood disturbance, and anxiety (2) Bipolar disorder: Status: Acute Code(s): F31.9 - Bipolar disorder, unspecified Plan Elderly female with a past history of bipolar disorder and now recent onset of dementia initially admitted for aggressive behavior at her home. She was living with another 10 members in a crowded apartment. She was admitted and restarted her regular medications and she responded fairly well. Plan 1. Continue same medications, this moment the patient is stable. 2. Waiting for placement Reason for contiued inpatient stay Substantial Risk for: inability to function, rapid decompensation and med/psych decompensation Time Spent With Patient Time: Total time managing care of this patient today __20__ minutes.
[2022-05-21 07:30] VITALS: BP 141/64; PULSE 60; RESP 16; TEMP 36.3; O2SAT 97
[2022-05-21] MEDS: Loratadine 10 MG TABLET PO (10:43)
[2022-05-21] MEDS: Sertraline HCL 50 MG TABLET PO (10:43)
[2022-05-21] MEDS: Divalproex Sodium 250 MG TABLET.DR PO (10:44)
[2022-05-21] MEDS: Atorvastatin Calcium 80 MG TABLET PO (10:44)
[2022-05-21] MEDS: amLODIPine Besylate 10 MG TABLET PO (10:46)
[2022-05-21] MEDS: hydroCHLOROthiazide 25 MG TABLET PO (10:46)
[2022-05-21 18:00] VITALS: BP 147/79; PULSE 62; RESP 18; TEMP 36.5; O2SAT 98
[2022-05-21] MEDS: carvediloL 12.5 MG TABLET PO (20:45)
[2022-05-21] MEDS: Divalproex Sodium 500 MG TABLET.DR PO (20:46)
[2022-05-21] MEDS: QUEtiapine Fumarate 50 MG TABLET PO (20:46)
[2022-05-21] MEDS: Melatonin 3 MG TABLET 6 MG PO (20:46)
[2022-05-21] MEDS: Nystatin Powder 15 GM BOTTLE 1 APPL TOPICAL (21:34)
[2022-05-22] MEDS: Levothyroxine Sodium 50 MCG TABLET PO (06:32)
[2022-05-22 07:30] VITALS: BP 137/76; PULSE 60; RESP 15; TEMP 36.2; O2SAT 97
--- NOTE | 2022-05-22 07:39 | HO.PSYCHPN ---
Subjective Subjective Date of Service: 05/22/22 Reason For Visit: depression, anxiety, alzheimers Subjective Notes: Conditional Voluntary Interim History: The nursing staff reported the patient had been compliant with treatment. She was seen in the community areas, attending to groups pleasant and cooperative. On interview the patient denies new symptoms, waiting for placement. Mental Status Exam Mental Status Exam Patient Appearance: Well Grooomed and Appropriate Patient Orientation: Person, Place and Situation Level of Consciousness: Awake and Appropriate Patient Behavior: Cooperative Mood Description: Calm Affect Description: Constricted Patient Cognition Impaired: Yes Ability to Follow Directions: Good Speech Pattern: Clear Hallucinations: None Delusions: Not Present Thought Process: Linear Thought Content: positive for Circumstantial Judgement: Fair Diagnostics Vital Signs (24Hr): Vital Signs - 24 hr 05/21/22 18:00 Temperature 97.7 F Pulse Rate 62 Respiratory Rate 18 Blood Pressure 147/79 H Pulse Oximetry 98 Oxygen Delivery Method Room Air BMI result Body Mass Index 30.0 Labs 05/09/22 08:02 05/09/22 08:02 Imaging Radiology Impressions: ITS Impressions Head CT 02/06/22 15:04 IMPRESSION: No acute intracranial hemorrhage or territorial infarction. Progressed moderate generalized parenchymal volume loss and mild to moderate chronic white matter microangiopathy. 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 Head CT 02/26/22 10:52 IMPRESSION: No acute intracranial hemorrhage or territorial infarction. Stable diffuse parenchymal volume loss and [id number] chronic white matter microangiopathy. Incompletely visualized moderate left maxillary sinus disease with chronic sclerotic wall thickening. 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 No evidence of acute territorial infarct. No intracranial mass effect or hydrocephalus. Medications Medications Current Medications Acetaminophen (Acetaminophen 325 Mg Tablet) 650 mg PO Q6H PRN PRN Reason: Headache/Pain Mild Scale (1-3) Last Admin: 05/20/22 20:33 Dose: 650 mg Al Hydroxide/Mg Hydroxide (Magnesium Hydrox/Alum Hydrox 30 Ml Oral.Susp) 30 ml PO Q6H PRN PRN Reason: Heartburn/Nausea Amlodipine Besylate (Amlodipine Besylate 10 Mg Tablet) 10 mg PO DAILY [facility]; Protocol Last Admin: 05/21/22 10:46 Dose: 10 mg Artificial Tears (Artificial Tears 15 Ml Drops) 1 drop EYE-BOTH Q4H PRN PRN Reason: dry eyes Atorvastatin Calcium (Atorvastatin Calcium 80 Mg Tablet) 80 mg PO DAILY [facility] Last Admin: 05/21/22 10:44 Dose: 80 mg Carvedilol (Carvedilol 12.5 Mg Tablet) 12.5 mg PO BID [facility]; Protocol Last Admin: 05/21/22 20:45 Dose: 12.5 mg Divalproex Sodium (Divalproex Sodium 250 Mg Tablet.) 250 mg PO DAILY [facility] Last Admin: 05/21/22 10:44 Dose: 250 mg Divalproex Sodium (Divalproex Sodium 500 Mg Tablet.Dr) 500 mg PO BEDTIME [facility] Last Admin: 05/21/22 20:46 Dose: 500 mg Guaifenesin/Dextromethorphan (Guaifenesin Dm 100/10/5 Ml 5 Ml Syrup) 10 ml PO Q4H PRN PRN Reason: cough Hydrochlorothiazide (Hydrochlorothiazide 25 Mg Tablet) 25 mg PO DAILY [facility]; Protocol Last Admin: 05/21/22 10:46 Dose: 25 mg Hydroxyzine HCl (Hydroxyzine Hcl 25 Mg Tablet) 25 mg PO Q6H PRN PRN Reason: Anxiety Levothyroxine Sodium (Levothyroxine Sodium 50 Mcg Tablet) 50 mcg PO DAILY@0600 [facility] Last Admin: 05/22/22 06:32 Dose: 50 mcg Loratadine (Loratadine 10 Mg Tablet) 10 mg PO DAILY [facility] Last Admin: 05/21/22 10:43 Dose: 10 mg Magnesium Hydroxide (Milk Of Magnesia 30 Ml Oral.Susp) 30 ml PO DAILY PRN PRN Reason: Constipation Melatonin (Melatonin 3 Mg Tablet) 6 mg PO BEDTIME [facility] Last Admin: 05/21/22 20:46 Dose: 6 mg Nystatin (Nystatin Powder 15 Gm Bottle) 1 appl TOPICAL BID [facility]; Protocol Last Admin: 05/21/22 21:34 Dose: 1 appl Polyethylene Glycol (Polyethylene Glycol 3350 17 Gm Powd.Pack) 17 gm PO DAILY PRN PRN Reason: constipation Quetiapine Fumarate (Quetiapine Fumarate 50 Mg Tablet) 50 mg PO BEDTIME [facility] Last Admin: 05/21/22 20:46 Dose: 50 mg Senna/Docusate Sodium (Sennosides/Docusate Sodium Tablet) 1 tab PO DAILY PRN PRN Reason: constipation Sertraline HCl (Sertraline Hcl 50 Mg Tablet) 50 mg PO DAILY [facility] Last Admin: 05/21/22 10:43 Dose: 50 mg Trazodone HCl (Trazodone Hcl 50 Mg Tablet) 50 mg PO BEDTIME PRN PRN Reason: Insomnia Allergies Allergies Allergy/AdvReac Type Severity Reaction Status Date / Time No Known Allergies Allergy Verified 02/05/22 21:09 Assessment & Plan Assessment & Plan (1) Dementia: Status: Acute Code(s): F03.90 - Unspecified dementia, unspecified severity, without behavioral disturbance, psychotic disturbance, mood disturbance, and anxiety (2) Bipolar disorder: Status: Acute Code(s): F31.9 - Bipolar disorder, unspecified Plan Elderly female with a past history of bipolar disorder and now recent onset of dementia initially admitted for aggressive behavior at her home. She was living with another 10 members in a crowded apartment. She was admitted and restarted her regular medications and she responded fairly well. Plan 1. Continue same medications, this moment the patient is stable. 2. Waiting for placement Reason for contiued inpatient stay Substantial Risk for: inability to function, rapid decompensation and med/psych decompensation Time Spent With Patient Time: Total time managing care of this patient today __20__ minutes.
[2022-05-22] MEDS: Acetaminophen 325 MG TABLET 650 MG PO (11:20)
[2022-05-22] MEDS: carvediloL 12.5 MG TABLET PO ×2 (11:20→20:02)
[2022-05-22] MEDS: Sertraline HCL 50 MG TABLET PO (11:20)
[2022-05-22] MEDS: Atorvastatin Calcium 80 MG TABLET PO (11:21)
[2022-05-22] MEDS: hydroCHLOROthiazide 25 MG TABLET PO (11:21)
[2022-05-22] MEDS: amLODIPine Besylate 10 MG TABLET PO (11:21)
[2022-05-22] MEDS: Loratadine 10 MG TABLET PO (11:21)
[2022-05-22] MEDS: Divalproex Sodium 250 MG TABLET.DR PO (11:21)
[2022-05-22 20:00] VITALS: BP 136/72; PULSE 62; RESP 18; TEMP 36.2; O2SAT 100
[2022-05-22] MEDS: QUEtiapine Fumarate 50 MG TABLET PO (20:02)
[2022-05-22] MEDS: Divalproex Sodium 500 MG TABLET.DR PO (20:02)
[2022-05-22] MEDS: Melatonin 3 MG TABLET 6 MG PO (20:02)
[2022-05-22] MEDS: Nystatin Powder 15 GM BOTTLE 1 APPL TOPICAL (20:04)
[2022-05-23] MEDS: Levothyroxine Sodium 50 MCG TABLET PO (05:29)
[2022-05-23 06:00] VITALS: BP 140/70; PULSE 70; RESP 18; TEMP 37; O2SAT 100
--- NOTE | 2022-05-23 06:42 | HO.PSYCHPN ---
Subjective Subjective Date of Service: 05/23/22 Reason For Visit: depression, anxiety, alzheimers Subjective Notes: Conditional Voluntary Interim History: The nursing staff reported the patient had been compliant with treatment, no new concerns. The occupational therapist reported that she had been attending to groups consistently and she participates actively. On interview the patient denies new symptoms, waiting for placement Mental Status Exam Mental Status Exam Patient Appearance: Well Grooomed and Appropriate Patient Orientation: Person, Place and Situation Level of Consciousness: Awake and Appropriate Patient Behavior: Cooperative Mood Description: Calm Affect Description: Constricted Patient Cognition Impaired: Yes Ability to Follow Directions: Good Speech Pattern: Clear Hallucinations: None Delusions: Not Present Thought Process: Linear Thought Content: positive for Circumstantial Judgement: Fair Diagnostics Vital Signs (24Hr): Vital Signs - 24 hr 05/22/22 07:30 05/22/22 20:00 Temperature 97.1 F 97.1 F Pulse Rate 60 62 Respiratory Rate 15 18 Blood Pressure 137/76 136/72 Pulse Oximetry 97 100 Oxygen Delivery Method Room Air Room Air BMI result Body Mass Index 30.0 Labs 05/09/22 08:02 05/09/22 08:02 Imaging Radiology Impressions: ITS Impressions Head CT 02/06/22 15:04 IMPRESSION: No acute intracranial hemorrhage or territorial infarction. Progressed moderate generalized parenchymal volume loss and mild to moderate chronic white matter microangiopathy. 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 Head CT 02/26/22 10:52 IMPRESSION: No acute intracranial hemorrhage or territorial infarction. Stable diffuse parenchymal volume loss and [id number] chronic white matter microangiopathy. Incompletely visualized moderate left maxillary sinus disease with chronic sclerotic wall thickening. 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 No evidence of acute territorial infarct. No intracranial mass effect or hydrocephalus. Medications Medications Current Medications Acetaminophen (Acetaminophen 325 Mg Tablet) 650 mg PO Q6H PRN PRN Reason: Headache/Pain Mild Scale (1-3) Last Admin: 05/22/22 11:20 Dose: 650 mg Al Hydroxide/Mg Hydroxide (Magnesium Hydrox/Alum Hydrox 30 Ml Oral.Susp) 30 ml PO Q6H PRN PRN Reason: Heartburn/Nausea Amlodipine Besylate (Amlodipine Besylate 10 Mg Tablet) 10 mg PO DAILY [facility]; Protocol Last Admin: 05/22/22 11:21 Dose: 10 mg Artificial Tears (Artificial Tears 15 Ml Drops) 1 drop EYE-BOTH Q4H PRN PRN Reason: dry eyes Atorvastatin Calcium (Atorvastatin Calcium 80 Mg Tablet) 80 mg PO DAILY [facility] Last Admin: 05/22/22 11:21 Dose: 80 mg Carvedilol (Carvedilol 12.5 Mg Tablet) 12.5 mg PO BID [facility]; Protocol Last Admin: 05/22/22 20:02 Dose: 12.5 mg Divalproex Sodium (Divalproex Sodium 250 Mg Tablet.) 250 mg PO DAILY [facility] Last Admin: 05/22/22 11:21 Dose: 250 mg Divalproex Sodium (Divalproex Sodium 500 Mg Tablet.) 500 mg PO BEDTIME [facility] Last Admin: 05/22/22 20:02 Dose: 500 mg Guaifenesin/Dextromethorphan (Guaifenesin Dm 100/10/5 Ml 5 Ml Syrup) 10 ml PO Q4H PRN PRN Reason: cough Hydrochlorothiazide (Hydrochlorothiazide 25 Mg Tablet) 25 mg PO DAILY [facility]; Protocol Last Admin: 05/22/22 11:21 Dose: 25 mg Hydroxyzine HCl (Hydroxyzine Hcl 25 Mg Tablet) 25 mg PO Q6H PRN PRN Reason: Anxiety Levothyroxine Sodium (Levothyroxine Sodium 50 Mcg Tablet) 50 mcg PO DAILY@0600 [facility] Last Admin: 05/23/22 05:29 Dose: 50 mcg Loratadine (Loratadine 10 Mg Tablet) 10 mg PO DAILY [facility] Last Admin: 05/22/22 11:21 Dose: 10 mg Magnesium Hydroxide (Milk Of Magnesia 30 Ml Oral.Susp) 30 ml PO DAILY PRN PRN Reason: Constipation Melatonin (Melatonin 3 Mg Tablet) 6 mg PO BEDTIME [facility] Last Admin: 05/22/22 20:02 Dose: 6 mg Nystatin (Nystatin Powder 15 Gm Bottle) 1 appl TOPICAL BID [facility]; Protocol Last Admin: 05/22/22 20:04 Dose: 1 appl Polyethylene Glycol (Polyethylene Glycol 3350 17 Gm Powd.Pack) 17 gm PO DAILY PRN PRN Reason: constipation Quetiapine Fumarate (Quetiapine Fumarate 50 Mg Tablet) 50 mg PO BEDTIME [facility] Last Admin: 05/22/22 20:02 Dose: 50 mg Senna/Docusate Sodium (Sennosides/Docusate Sodium Tablet) 1 tab PO DAILY PRN PRN Reason: constipation Sertraline HCl (Sertraline Hcl 50 Mg Tablet) 50 mg PO DAILY [facility] Last Admin: 05/22/22 11:20 Dose: 50 mg Trazodone HCl (Trazodone Hcl 50 Mg Tablet) 50 mg PO BEDTIME PRN PRN Reason: Insomnia Allergies Allergies Allergy/AdvReac Type Severity Reaction Status Date / Time No Known Allergies Allergy Verified 02/05/22 21:09 Assessment & Plan Assessment & Plan (1) Dementia: Status: Acute Code(s): F03.90 - Unspecified dementia, unspecified severity, without behavioral disturbance, psychotic disturbance, mood disturbance, and anxiety (2) Bipolar disorder: Status: Acute Code(s): F31.9 - Bipolar disorder, unspecified Plan Elderly female with a past history of bipolar disorder and now recent onset of dementia initially admitted for aggressive behavior at her home. She was living with another 10 members in a crowded apartment. She was admitted and restarted her regular medications and she responded fairly well. Plan 1. Continue same medications, this moment the patient is stable. 2. Waiting for placement Reason for contiued inpatient stay Substantial Risk for: inability to function, rapid decompensation and med/psych decompensation Time Spent With Patient Time: Total time managing care of this patient today _20___ minutes.
[2022-05-23] MEDS: carvediloL 12.5 MG TABLET PO ×2 (08:25→20:01)
[2022-05-23] MEDS: Divalproex Sodium 250 MG TABLET.DR PO (08:25)
[2022-05-23] MEDS: Sertraline HCL 50 MG TABLET PO (08:25)
[2022-05-23] MEDS: hydroCHLOROthiazide 25 MG TABLET PO (08:25)
[2022-05-23] MEDS: amLODIPine Besylate 10 MG TABLET PO (08:25)
[2022-05-23] MEDS: Atorvastatin Calcium 80 MG TABLET PO (08:25)
[2022-05-23] MEDS: Loratadine 10 MG TABLET PO (08:25)
[2022-05-23] MEDS: Acetaminophen 325 MG TABLET 650 MG PO ×2 (11:10→19:59)
[2022-05-23 18:00] VITALS: BP 131/82; PULSE 64; RESP 18; TEMP 36.6; O2SAT 97
[2022-05-23] MEDS: Nystatin Powder 15 GM BOTTLE 1 APPL TOPICAL (19:59)
[2022-05-23] MEDS: Melatonin 3 MG TABLET 6 MG PO (20:00)
[2022-05-23] MEDS: Divalproex Sodium 500 MG TABLET.DR PO (20:01)
[2022-05-23] MEDS: QUEtiapine Fumarate 50 MG TABLET PO (20:01)
[2022-05-24] MEDS: Levothyroxine Sodium 50 MCG TABLET PO (05:43)
[2022-05-24 07:00] VITALS: BMI 30.7
--- NOTE | 2022-05-24 07:50 | HO.PSYCHPN ---
Subjective Subjective Date of Service: 05/24/22 Reason For Visit: depression, anxiety, alzheimers Subjective Notes: Conditional Voluntary Interim History: The nursing staff reported the patient had been compliant with treatment, the staff reported that she has attended to groups, she is cooperative and pleasant. The nursing home social worker reported that the SNF has not financially cleared, waiting for her son to do the paperwork. Today, the nursing home social worker informed later that there is the possiblity of discharge tomorrow. On interview the patient denies new symptoms, waiting for placement. Mental Status Exam Mental Status Exam Patient Appearance: Well Grooomed and Appropriate Patient Orientation: Person, Place and Situation Level of Consciousness: Awake and Appropriate Patient Behavior: Cooperative Mood Description: Calm Affect Description: Constricted Patient Cognition Impaired: Yes Ability to Follow Directions: Good Speech Pattern: Clear Hallucinations: None Delusions: Not Present Thought Process: Linear Thought Content: positive for [place] and positive for Circumstantial Judgement: Fair Diagnostics Vital Signs (24Hr): Vital Signs - 24 hr 05/23/22 18:00 Temperature 97.8 F Pulse Rate 64 Respiratory Rate 18 Blood Pressure 131/82 Pulse Oximetry 97 Oxygen Delivery Method Room Air BMI result Body Mass Index 30.0 Labs 05/09/22 08:02 05/09/22 08:02 Imaging Radiology Impressions: ITS Impressions Head CT 02/06/22 15:04 IMPRESSION: No acute intracranial hemorrhage or territorial infarction. Progressed moderate generalized parenchymal volume loss and mild to moderate chronic white matter microangiopathy. 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 Head CT 02/26/22 10:52 IMPRESSION: No acute intracranial hemorrhage or territorial infarction. Stable diffuse parenchymal volume loss and [id number] chronic white matter microangiopathy. Incompletely visualized moderate left maxillary sinus disease with chronic sclerotic wall thickening. 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 No evidence of acute territorial infarct. No intracranial mass effect or hydrocephalus. Medications Medications Current Medications Acetaminophen (Acetaminophen 325 Mg Tablet) 650 mg PO Q6H PRN PRN Reason: Headache/Pain Mild Scale (1-3) Last Admin: 05/23/22 19:59 Dose: 650 mg Al Hydroxide/Mg Hydroxide (Magnesium Hydrox/Alum Hydrox 30 Ml Oral.Susp) 30 ml PO Q6H PRN PRN Reason: Heartburn/Nausea Amlodipine Besylate (Amlodipine Besylate 10 Mg Tablet) 10 mg PO DAILY [facility]; Protocol Last Admin: 05/23/22 08:25 Dose: 10 mg Artificial Tears (Artificial Tears 15 Ml Drops) 1 drop EYE-BOTH Q4H PRN PRN Reason: dry eyes Atorvastatin Calcium (Atorvastatin Calcium 80 Mg Tablet) 80 mg PO DAILY [facility] Last Admin: 05/23/22 08:25 Dose: 80 mg Carvedilol (Carvedilol 12.5 Mg Tablet) 12.5 mg PO BID [facility]; Protocol Last Admin: 05/23/22 20:01 Dose: 12.5 mg Divalproex Sodium (Divalproex Sodium 250 Mg Tablet.) 250 mg PO DAILY [facility] Last Admin: 05/23/22 08:25 Dose: 250 mg Divalproex Sodium (Divalproex Sodium 500 Mg Tablet.) 500 mg PO BEDTIME [facility] Last Admin: 05/23/22 20:01 Dose: 500 mg Guaifenesin/Dextromethorphan (Guaifenesin Dm 100/10/5 Ml 5 Ml Syrup) 10 ml PO Q4H PRN PRN Reason: cough Hydrochlorothiazide (Hydrochlorothiazide 25 Mg Tablet) 25 mg PO DAILY [facility]; Protocol Last Admin: 05/23/22 08:25 Dose: 25 mg Hydroxyzine HCl (Hydroxyzine Hcl 25 Mg Tablet) 25 mg PO Q6H PRN PRN Reason: Anxiety Levothyroxine Sodium (Levothyroxine Sodium 50 Mcg Tablet) 50 mcg PO DAILY@0600 [facility] Last Admin: 05/24/22 05:43 Dose: 50 mcg Loratadine (Loratadine 10 Mg Tablet) 10 mg PO DAILY [facility] Last Admin: 05/23/22 08:25 Dose: 10 mg Magnesium Hydroxide (Milk Of Magnesia 30 Ml Oral.Susp) 30 ml PO DAILY PRN PRN Reason: Constipation Melatonin (Melatonin 3 Mg Tablet) 6 mg PO BEDTIME [facility] Last Admin: 05/23/22 20:00 Dose: 6 mg Nystatin (Nystatin Powder 15 Gm Bottle) 1 appl TOPICAL BID [facility]; Protocol Last Admin: 05/23/22 19:59 Dose: 1 appl Polyethylene Glycol (Polyethylene Glycol 3350 17 Gm Powd.Pack) 17 gm PO DAILY PRN PRN Reason: constipation Quetiapine Fumarate (Quetiapine Fumarate 50 Mg Tablet) 50 mg PO BEDTIME [facility] Last Admin: 05/23/22 20:01 Dose: 50 mg Senna/Docusate Sodium (Sennosides/Docusate Sodium Tablet) 1 tab PO DAILY PRN PRN Reason: constipation Sertraline HCl (Sertraline Hcl 50 Mg Tablet) 50 mg PO DAILY [facility] Last Admin: 05/23/22 08:25 Dose: 50 mg Trazodone HCl (Trazodone Hcl 50 Mg Tablet) 50 mg PO BEDTIME PRN PRN Reason: Insomnia Allergies Allergies Allergy/AdvReac Type Severity Reaction Status Date / Time No Known Allergies Allergy Verified 02/05/22 21:09 Assessment & Plan Assessment & Plan (1) Dementia: Status: Acute Code(s): F03.90 - Unspecified dementia, unspecified severity, without behavioral disturbance, psychotic disturbance, mood disturbance, and anxiety (2) Bipolar disorder: Status: Acute Code(s): F31.9 - Bipolar disorder, unspecified Plan Elderly female with a past history of bipolar disorder and now recent onset of dementia initially admitted for aggressive behavior at her home. She was living with another 10 members in a crowded apartment. She was admitted and restarted her regular medications and she responded fairly well. Plan 1. Continue same medications, this moment the patient is stable. 2. Waiting for placement Reason for contiued inpatient stay Substantial Risk for: inability to function, rapid decompensation and med/psych decompensation Time Spent With Patient Time: Total time managing care of this patient today __20__ minutes.
[2022-05-24] MEDS: Sertraline HCL 50 MG TABLET PO (08:37)
[2022-05-24] MEDS: Divalproex Sodium 250 MG TABLET.DR PO (08:37)
[2022-05-24] MEDS: amLODIPine Besylate 10 MG TABLET PO (08:37)
[2022-05-24] MEDS: carvediloL 12.5 MG TABLET PO ×2 (08:37→20:49)
[2022-05-24] MEDS: Loratadine 10 MG TABLET PO (08:37)
[2022-05-24] MEDS: Atorvastatin Calcium 80 MG TABLET PO (08:37)
[2022-05-24] MEDS: hydroCHLOROthiazide 25 MG TABLET PO (08:37)
[2022-05-24 08:40] VITALS: BP 119/69; PULSE 65; RESP 18; TEMP 36.4; O2SAT 96
[2022-05-24 20:45] VITALS: BP 122/70; PULSE 62; RESP 18; TEMP 36.3; O2SAT 97
[2022-05-24] MEDS: Melatonin 3 MG TABLET 6 MG PO (20:48)
[2022-05-24] MEDS: Nystatin Powder 15 GM BOTTLE 1 APPL TOPICAL (20:48)
[2022-05-24] MEDS: Divalproex Sodium 500 MG TABLET.DR PO (20:49)
[2022-05-24] MEDS: QUEtiapine Fumarate 50 MG TABLET PO (20:49)
[2022-05-24] MEDS: Acetaminophen 325 MG TABLET 650 MG PO (20:50)
[2022-05-25] MEDS: Levothyroxine Sodium 50 MCG TABLET PO (05:49)
[2022-05-25 06:00] VITALS: BP 161/71; PULSE 60; RESP 18; TEMP 36.5; O2SAT 97
--- NOTE | 2022-05-25 06:49 | PM.PSYDC ---
DS: Providers Provider Date of Service: 05/25/22 Date of admission: 02/05/22 19:41 Date of discharge: 05/25/22 Primary care physician: Unknown Physician Consults: 02/05/22 21:09 Consult to Hospitalist Routine Consulting Provider: Hospitalist Reason For Exam: new admit from [place] 02/26/22 15:52 Consult to Neurology Routine Consulting Provider: [facility] Reason for consultation: left neglect, nl CT-scan Has provider been notified: Yes 03/04/22 12:16 Consult to Hospitalist Routine Consulting Provider: Hospitalist Reason For Exam: labile BP, SBP recently > 200. DS: Diagnosis Discharge Diagnosis (1) Dementia: Status: Acute (2) Bipolar disorder: Status: Acute Mental Status Exam Mental Status Exam Patient Appearance: Well Grooomed and Appropriate Patient Orientation: Person, Place and Situation Level of Consciousness: Awake, Appropriate and Follows Commands Patient Behavior: Cooperative Mood Description: Calm Affect Description: Relaxed Patient Cognition Impaired: Yes Ability to Follow Directions: Good Speech Pattern: Clear Hallucinations: None Delusions: Not Present Thought Process: Linear Thought Content: positive for Circumstantial Judgement: Fair Data Imaging Diagnostic Imaging Impressions Head CT 02/06/22 15:04 IMPRESSION: No acute intracranial hemorrhage or territorial infarction. Progressed moderate generalized parenchymal volume loss and mild to moderate chronic white matter microangiopathy. 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 Head CT 02/26/22 10:52 IMPRESSION: No acute intracranial hemorrhage or territorial infarction. Stable diffuse parenchymal volume loss and [id number] chronic white matter microangiopathy. Incompletely visualized moderate left maxillary sinus disease with chronic sclerotic wall thickening. 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 No evidence of acute territorial infarct. No intracranial mass effect or hydrocephalus. DS: Summary Hospital Course Hospital Course: The patient was admitted for agitation and violent outburst at home. She was been living with 10 family members in a very crowded apartment. Please see the HPI of the admission note for further details. The patient carries a diagnosis of bipolar disorder and she had being as mood stabilizers and antidepressants. On admission, we restarted all his medications without any complications or side effects. The patient's mood improved very rapidly and she was able to participate in groups and other therapeutic activities in the unit. Several family meetings were done, his family cannot take care back sings they are temporal worker's and she also wanted to go to a prison. We did a very extensive bed search for prison and the patient waited several weeks until she was finally accepted. While she was in the unit, the patient was very pleasant and cooperative, participated in groups and she was safe. Since there were no safety concerns and there was a bed available in a local prison discharged was decided. Time spent discussing smoking cessation with patient: 3 to 10 minutes Status at Discharge Cognitive/behavioral status at discharge: Minimally cognitively impaired, overall, she is very functional able to do her own ADLs Functional status at discharge: independent ambulation Overall status at discharge: patient is back to baseline Time Spent with Patient Time attestation: Total time managing care of this patient today __30__ minutes. Time spent: Less than 30 minutes Discharge Plan Discharge Patient Disposition: er [facility] Discharge Diagnosis: Bipolar disorder Dementia Referrals: Physician,Unknown J [Primary Care Provider] - 1 Week Discharge Medications: New atorvastatin 80 mg Tablet 80 mg PO DAILY 30 Days Qty: 30 0RF carvedilol 12.5 mg Tablet 12.5 mg PO BID 30 Days Qty: 60 0RF Protocol: Hold for SBP/HR < HOLD for SBP < : 90 HOLD for HR < : 60 divalproex 250 mg Tablet,Delayed Release (Dr/Ec) 250 mg PO DAILY 30 Days Qty: 30 0RF polyvinyl alcohol [Artificial Tears (polyvin alc)] 1.4 % Drops 1 drp ophthalmic (eye) Q4H PRN (Reason: dry eyes) 30 Days Qty: 1 0RF melatonin 3 mg Tablet 6 mg PO BEDTIME 30 Days Qty: 60 0RF divalproex 500 mg Tablet,Delayed Release (Dr/Ec) 500 mg PO BEDTIME 30 Days Qty: 30 0RF amlodipine 10 mg Tablet 10 mg PO DAILY 30 Days Qty: 30 0RF Protocol: Hold for SBP< HOLD for SBP < : 90 levothyroxine 50 mcg Tablet 50 mcg PO DAILY@0600 30 Days Qty: 30 0RF hydrochlorothiazide 25 mg Tablet 25 mg PO DAILY 30 Days Qty: 30 0RF Protocol: Hold for SBP< HOLD for SBP < : 90 nystatin 100,000 unit/gram Powder 1 appl topical BID 30 Days Qty: 1 0RF Protocol: Apply to: Apply to: affected area sertraline 50 mg Tablet 50 mg PO DAILY 30 Days Qty: 30 0RF loratadine 10 mg Tablet 10 mg PO DAILY 30 Days Qty: 30 0RF quetiapine 50 mg Tablet 50 mg PO BEDTIME 30 Days Qty: 30 0RF Discharge Orders: Discharge Order (Routine); Ordered 05/25/22 Ordered By: Alberto Mcguire Diet: Advance to usual diet Activity on Discharge: As tolerated Stand Alone Forms: Patient Portal Discharge page Care Plan Goals: Care plan goals achieved in this admission Health Concerns: Continue treatment by outpatient providers Plan of Treatment: Continue treatment by outpatient provider Assessment: Elderly female with a long history of bipolar disorder who was admitted into the facility for exacerbation of aggression court responded very well to his regular medications. Since she was safe she was ready to be discharged to the prison.
[2022-05-25] MEDS: Sertraline HCL 50 MG TABLET PO (09:32)
[2022-05-25] MEDS: Loratadine 10 MG TABLET PO (09:32)
[2022-05-25] MEDS: hydroCHLOROthiazide 25 MG TABLET PO (09:32)
[2022-05-25] MEDS: carvediloL 12.5 MG TABLET PO (09:32)
[2022-05-25] MEDS: amLODIPine Besylate 10 MG TABLET PO (09:32)
[2022-05-25] MEDS: Atorvastatin Calcium 80 MG TABLET PO (09:32)
[2022-05-25] MEDS: Divalproex Sodium 250 MG TABLET.DR PO (09:32)
--- NOTE | 2022-05-25 10:44 | PC.NURSE ---
Pt reports she is in agreement with discharge plan, feels safe and ready for discharge. Nurse to nurse report called at [facility] to JESUS Gaytan. The pt denies SI;HI;AH;VH.
== END 2022-05-25 12:00 | DRG 885 ==
PROVIDERS: Internal Medicine; Social Worker; Admitting Provider Registered Nurse; Visit Provider Psychiatry & Neurology Psychiatry
DX: F31.9 Bipolar disorder, unspecified (principal); U07.1 COVID-19; F05 Delirium due to known physiological condition; N39.0 Urinary tract infection, site not specified; I12.9 Hypertensive chronic kidney disease with stage 1 through stage 4 chronic kidney disease, or unspecified chronic kidney disease; N18.30 Chronic kidney disease, stage 3 unspecified; E11.22 Type 2 diabetes mellitus with diabetic chronic kidney disease; E78.5 Hyperlipidemia, unspecified; G30.9 Alzheimer's disease, unspecified; F02.80 Dementia in other diseases classified elsewhere, unspecified severity, without behavioral disturbance, psychotic disturbance, mood disturbance, and anxiety; E03.9 Hypothyroidism, unspecified; G47.33 Obstructive sleep apnea (adult) (pediatric); Z87.891 Personal history of nicotine dependence; Z79.890 Hormone replacement therapy; Z79.899 Other long term (current) drug therapy
CPT/HCPCS: 0241U; 36415; 70450; 70551; 76377; 80048; 80061; 80076; 80164; 81001; 81003; 82607; 82746; 82947; 83036; 83735; 84439; 84443; 85025; 87635; 95816; 97162